=== PATIENT | male | born 1955 | race Caucasian/White ===

== ENCOUNTER → 2017-09-27 06:01 | Outpatient (CLI) | payer OTHER, BC, SELFPAY ==
[2017-09-27 08:36] LABS: AST(SGOT) 22 U/L (15-37); Alanine Aminotransfer ALT/SGPT 42 U/L (16-61); Albumin, Serum 3.7 g/dL (3.2-5.0); Alkaline Phosphatase 157 U/L (45-117); Bilirubin, Direct 0.13 mg/dL (0.00-0.30); Cholesterol 128 mg/dL (200); Globulin 4.2 g/dL (2.2-4.2); High Density Lipoprotein 35 mg/dL; Protein, Total 7.9 g/dL (6.4-8.2); Triglycerides 162 mg/dL; Very Low Density Lipoprotein 32 mg/dL (5-40)
== END ==
PROVIDERS: Family Provider Family Medicine; PCP Family Medicine; Visit Provider Internal Medicine Cardiovascular Disease
DX: E78.5 Hyperlipidemia, unspecified (principal)
CPT/HCPCS: 36415; 80061; 80076

== ENCOUNTER → 2018-06-04 11:19 | Outpatient (CLI) | payer OTHER, BC, SELFPAY ==
--- NOTE | 2018-06-04 11:24 | RAD_ITS ---
STUDY: X-RAY CHEST REASON FOR EXAM: Male, 62 years old. Cough for 4 weeks. TECHNIQUE: Frontal and lateral views of the chest. COMPARISON: November 29, 2015 FINDINGS: There is stable mild hyperexpansion. There is no demonstrated pleural abnormality. Normal size heart. Normal mediastinum and akin. Normal visualized pulmonary arteries. Normal visualized aortic arch and descending thoracic aorta. Normal visualized thoracic spine. Normal visualized ribs, clavicles, and shoulders. There is no demonstrated abnormality of the visualized soft tissue structures of the upper abdomen. RAD/Chest PA and Lateral IMPRESSION: Stable hyperexpansion. No acute pathology. Electronically Signed: Swapnil Perdue MD at 14:41 EDT , Service support ,
== END ==
PROVIDERS: Family Provider Family Medicine; PCP Family Medicine; Referring Provider Family Medicine; Visit Provider Family Medicine
DX: J20.9 Acute bronchitis, unspecified (principal); R05 Cough; F17.200 Nicotine dependence, unspecified, uncomplicated
CPT/HCPCS: 71046

== ENCOUNTER → 2018-06-21 05:57 | Outpatient (CLI) | payer OTHER, BC, SELFPAY ==
[2018-06-21 07:46] LABS: AST(SGOT) 23 U/L (15-37); Alanine Aminotransfer ALT/SGPT 31 U/L (16-61); Albumin, Serum 3.5 g/dL (3.2-5.0); Alkaline Phosphatase 145 U/L (45-117); Bilirubin, Direct 0.23 mg/dL (0.00-0.30); Cholesterol 109 mg/dL (200); Globulin 3.9 g/dL (2.2-4.2); High Density Lipoprotein 34 mg/dL; Protein, Total 7.4 g/dL (6.4-8.2); Triglycerides 102 mg/dL; Very Low Density Lipoprotein 20 mg/dL (5-40)
== END ==
PROVIDERS: Family Provider Family Medicine; PCP Family Medicine; Referring Provider Internal Medicine Cardiovascular Disease; Visit Provider Internal Medicine Cardiovascular Disease
DX: E78.5 Hyperlipidemia, unspecified (principal); Z79.899 Other long term (current) drug therapy
CPT/HCPCS: 36415; 80061; 80076

== ENCOUNTER → 2018-06-25 13:33 | Outpatient (CLI) | payer OTHER, BC, SELFPAY ==
--- NOTE | 2018-06-25 13:34 | ECHOD_ITS ---
Reason For Study: Hx of [place] Procedure This was a 2D Doppler, Color Flow transthoracic echocardiogram. The study was technically difficult. Exam performed in department. Left Ventricle Normal LV size. Mild global left ventricular systolic dysfunction. The estimated ejection fraction is 40 %. Transmitral doppler flow suggestive of impaired relaxation of left ventricle. The global longitudinal strain = -11% (abnormal). Anterio-Basal: Hypokinetic. Basal inferoseptal: Hypokinetic. Basal anteroseptal: Hypokinetic. Mid-Anterior : Hypokinetic. Mid-Lateral : Severely Hypokinetic. Mid-Posterior: Severely Hypokinetic. Mid-Inferior: Severely Hypokinetic. Mid-inferoseptal : Hypokinetic. Mid-anteroseptal : Hypokinetic. Anterior [place] : Hypokinetic. Inferior [place] : Severely Hypokinetic. Lateral [place] : Severely Hypokinetic. Septal [place] : Hypokinetic. Right Ventricle Normal RV size. Normal systolic function. Atria The left atrium is mildly enlarged. Normal right atrium. No doppler evidence for ASD. Mitral Valve There is no mitral annular calcification. Normal mitral valve. Trivial mitral valve insufficiency. Tricuspid Valve Normal tricuspid valve. Trivial tricuspid valve insufficiency. Unable to estimate RV systolic pressure/pulmonary artery pressure due to technically difficult study. Aortic Valve Trisinus/trileaflet aortic valve. Normal aortic valve. Pulmonic Valve The pulmonic valve is not well visualized. Great Vessels Normal sized aortic root. Pericardium/Pleural No pericardial effusion. MMode/2D Measurements & Calculations LVIDd: 5.0 cm IVSd: 0.96 cm Ao root diam: 3.0 cm LVIDs: 3.8 cm LVPWd: 1.2 cm RVDd: 3.2 cm FS: 24.3 % LAV(MOD-sp4): 70.4 ml EDV(MOD-sp4): 139.1 ml EDV(MOD-sp2): 161.3 ml ESV(MOD-sp4): 89.4 ml EF(MOD-sp2): 40.1 % EF(MOD-sp4): 35.7 % SV(MOD-sp4): 49.7 ml SV(MOD-sp2): 64.6 ml LA A4 area: 21.8 cm2 LA dimension(2D): 3.9 cm RA A4 area: 18.3 cm2 Doppler Measurements & Calculations MV E max parviz: 62.7 cm/sec Lat Peak E' Parviz: 6.1 cm/sec Med Peak E' Parviz: 6.1 cm/sec MV A max parviz: 78.6 cm/sec E/E' lat: 10.2 E/E' med: 10.3 MV E/A: 0.80 Ao V2 max: 131.5 cm/sec LV V1 max: 96.2 cm/sec PA V2 max: 72.5 cm/sec Ao max P.9 mmHg LV V1 max P.7 mmHg Interpretation Summary The study was technically difficult. Mild global left ventricular systolic dysfunction. The estimated ejection fraction is 40 %. The global longitudinal strain = -11% (abnormal). The left atrium is mildly enlarged. Trivial mitral valve insufficiency. Trivial tricuspid valve insufficiency. Unable to estimate RV systolic pressure/pulmonary artery pressure due to technically difficult study. Transmitral doppler flow suggestive of impaired relaxation of left ventricle Ordering Physician: Nicholas Sparks Referring Physician: Nicholas Sparks Performed By: Brandy Ochoa RDCS
== END ==
PROVIDERS: Family Provider Family Medicine; PCP Family Medicine; Referring Provider Internal Medicine Cardiovascular Disease; Visit Provider Internal Medicine Cardiovascular Disease
DX: I25.10 Atherosclerotic heart disease of native coronary artery without angina pectoris (principal); I21.4 Non-ST elevation (NSTEMI) myocardial infarction; I25.5 Ischemic cardiomyopathy; I50.22 Chronic systolic (congestive) heart failure; Z95.5 Presence of coronary angioplasty implant and graft
CPT/HCPCS: 93306

== ENCOUNTER → 2018-12-02 16:20 | Outpatient (CLI) | payer OTHER, BC, SELFPAY ==
[2018-06-17 08:47] VITALS: BMI 27.6
[2018-12-02 17:59] LABS: Absolute Lymphocyte Count 3.16 X10^3/ul (0.83-4.51); Absolute Neutrophil Count 7.2 X10^3/uL (2.0-7.7); Basophil# 0.02 X10^3/uL; Basophil% 0.2 % (0-1); Eosinophil# 0.15 X10^3/uL; Eosinophils% 1.3 % (0-5); Lymphocyte # 3.16 X10^3/ul (4.0); Lymphocyte % 27.2 % (19-41); Mean Corpuscular Volume 96.9 fL (80-94); Mean Platelet Vol. 11.2 fl (6.2-12.0); Monocyte% 9.5 % (0-10); Neutrophil # 7.16 X10^3/uL (2.7-7.7); Neutrophil % 61.5 % (47-70); Platelet Count 244 K/mm3 (150-450); RBC Distribution Width CV 13.8 % (11.6-14.6); RBC Distribution Width SD 49.5 fl (35.1-43.9); Red Blood Count 4.85 M/mm3 (4.6-6.2); White Blood Count 11.6 K/mm3 (4.4-11.0)
[2018-12-02 18:00] LABS: POSITIVE COUNT NO; POSITIVE DIFFERENTIAL NO; POSITIVE MORPHOLOGY NO
[2018-12-02 18:03] LABS: Anion Gap 5 (5-15); BUN 11 mg/dL (7-18); BUN/Creat Ratio 13.3 RATIO (10-20); Calcium,Total 8.8 mg/dL (8.5-10.1); Chloride 108 mmol/L (98-107); Creatinine, Serum 0.83 mg/dL (0.70-1.30); EST Glomerular Filtration Rate 100 mL/min (>60); Est Glom Filt Rate - Afr Amer 121 mL/min (>60); Glucose 84 mg/dL (74-106); Potassium 3.9 mmol/L (3.5-5.1); Sodium Level 138 mmol/L (136-145); Thyroid Stim Hormone (TSH) 2.51 uIU/mL (0.358-3.74)
== END ==
PROVIDERS: Family Provider Family Medicine; PCP Family Medicine; Visit Provider Family Medicine
DX: I10 Essential (primary) hypertension (principal); E78.5 Hyperlipidemia, unspecified
CPT/HCPCS: 36415; 80048; 84443; 85025

== ENCOUNTER → 2020-03-01 16:18 | Outpatient (CLI) | payer BC, SELFPAY ==
[2019-09-05 08:38] VITALS: BMI 27.3
--- NOTE | 2020-03-01 16:21 | RAD_ITS ---
STUDY: X-RAY CHEST REASON FOR EXAM: Male, 64 years old. bilateral thoracic and back pain, cough, smoker TECHNIQUE: PA and lateral views of the chest. COMPARISON: 06/04/2018 FINDINGS: The lungs are clear and expanded. There is no demonstrated pleural abnormality. Normal size heart. Normal mediastinum and akin. Normal visualized pulmonary arteries. Normal visualized aortic arch and descending thoracic aorta. Normal visualized thoracic spine. Normal visualized ribs, clavicles, and shoulders. There is no demonstrated abnormality of the visualized soft tissue structures of the upper abdomen. RAD/Chest PA and Lateral IMPRESSION: No acute pulmonary process Electronically Signed: Nehemias Bhakta MD at 9:09 EDT , Service support ,
--- NOTE | 2020-03-01 16:22 | RAD_ITS ---
STUDY: X-RAY - THORACIC SPINE REASON FOR EXAM: Male, 64 years old. Bilateral thoracic and back pain, cough, smoker TECHNIQUE: 3 view(s) of the thoracic spine were obtained. COMPARISON: None. FINDINGS: Normal kyphosis of the thoracic spine. There is no substantial scoliosis. Normal thoracic vertebrae and endplates. Normal disc space heights. Mild anterior spurs noted in the lower thoracic spine. The soft tissue structures are unremarkable. RAD/Thoracic Spine 3 Views IMPRESSION: Mild degenerative changes with spurring, no demonstrated fracture or suspicious osseous lesion Electronically Signed: Nehemias Bhakta MD at 9:09 EDT , Service support ,
== END ==
PROVIDERS: PCP Family Medicine; Referring Provider Family Medicine; Visit Provider Family Medicine
DX: R05 Cough (principal); R10.9 Unspecified abdominal pain; M54.9 Dorsalgia, unspecified
CPT/HCPCS: 71046; 72072

== ENCOUNTER → 2020-03-02 07:07 | Outpatient (CLI) | payer BC, SELFPAY ==
[2019-09-05 08:38] VITALS: BMI 27.3
[2020-03-02 10:04] LABS: Absolute Lymphocyte Count 2.76 X10^3/uL (0.83-4.51); Absolute Neutrophil Count 5.7 X10^3/uL (2.0-7.7); Basophil# 0.03 X10^3/uL; Basophil% 0.3 % (0-1); Eosinophil# 0.19 X10^3/uL; Hematocrit 47.5 % (40-54); Lymphocyte # 2.76 X10^3/ul (4.0); Mean Corp Hgb Conc 33.7 g/dL (32-36); Mean Corpuscular Hgb 33.3 pg (27.0-32.0); Mean Corpuscular Volume 98.8 fL (80-94); Mean Platelet Vol. 10.9 fl (6.2-12.0); Monocyte# 0.85 X10^3/uL; Monocyte% 8.9 % (0-10); NRBC Flagged by Analyzer 0 % (0-5); Neutrophil # 5.67 X10^3/uL (2.7-7.7); Neutrophil % 59.5 % (47-70); Platelet Count 235 K/mm3 (150-450); RBC Distribution Width CV 14.2 % (11.6-14.6); RBC Distribution Width SD 51.7 fl (35.1-43.9); Red Blood Count 4.81 M/mm3 (4.6-6.2); White Blood Count 9.5 K/mm3 (4.4-11.0)
[2020-03-02 10:19] LABS: ALB/GLOB Ratio 0.9 RATIO (0.9-2.4); AST(SGOT) 25 U/L (15-37); Alanine Aminotransfer ALT/SGPT 45 U/L (16-61); Albumin, Serum 3.7 g/dL (3.2-5.0); Alkaline Phosphatase 141 U/L (45-117); Anion Gap 4 (5-15); BUN 15 mg/dL (7-18); BUN/Creat Ratio 18.7 RATIO (10-20); Calcium,Total 8.8 mg/dL (8.5-10.1); Chloride 109 mmol/L (98-107); Cholesterol 123 mg/dL (200); EST Glomerular Filtration Rate 104 mL/min (>60); Est Glom Filt Rate - Afr Amer 126 mL/min (>60); Globulin 4.2 g/dL (2.2-4.2); Glucose 106 mg/dL (74-106); High Density Lipoprotein 31 mg/dL; PSA,Total - Annual Screen 1.39 ng/mL (0.00-4.00); Potassium 3.8 mmol/L (3.5-5.1); Protein, Total 7.9 g/dL (6.4-8.2); Sodium Level 140 mmol/L (136-145); Triglycerides 139 mg/dL; Very Low Density Lipoprotein 28 mg/dL (5-40)
== END ==
PROVIDERS: PCP Family Medicine; Referring Provider Family Medicine; Visit Provider Family Medicine
DX: I25.10 Atherosclerotic heart disease of native coronary artery without angina pectoris (principal); I10 Essential (primary) hypertension; E78.5 Hyperlipidemia, unspecified; Z12.5 Encounter for screening for malignant neoplasm of prostate
CPT/HCPCS: 36415; 80053; 80061; 84153; 85025; G0103

== ENCOUNTER → 2020-03-12 15:34 | Outpatient (CLI) | payer BC, SELFPAY ==
[2019-09-05 08:38] VITALS: BMI 27.3
--- NOTE | 2020-03-12 15:38 | CT_ITS ---
STUDY: CT ABDOMEN AND PELVIS WITH AND WITHOUT CONTRAST REASON FOR EXAM: Male, 64 years old. B/L FLANK PAIN X MONTHS. RADIATION DOSAGE (If Supplied By Facility): CTDIvol = ( 10.373 ) mGy, DLP = ( 1730.73 ) mGycm TECHNIQUE: Transaxial images were obtained from the dome of the diaphragm to the symphysis pubis without oral contrast. IV 100ML ISOVUE 300 was administered. Sagittal and coronal images were reconstructed. Individualized dose optimization techniques were used for this CT. COMPARISON: None. FINDINGS: There is an irregularly marginated nodule of the posterior right lower lobe measuring 1.1 cm. Entirety of this nodule is not included in the [id number] of this study. The visualized heart appears within normal limits in size. Coronary arterial calcifications and/or stents are noted. Normal liver. Normal gallbladder and extrahepatic biliary system. Normal spleen. Normal pancreas. Normal bilateral adrenal glands. Normal right kidney. Normal left kidney. Normal visualized stomach. Normal small intestine. There is colonic diverticulosis predominantly involving the sigmoid. There is no evidence of associated diverticulitis. The appendix is visualized and appears normal. There are calcified plaques of the abdominal aorta. There is borderline aneurysmal dilatation of the infrarenal abdominal aorta measuring up to 3.0 cm in diameter. There is circumferential mural thrombus in the region of aneurysm. The aneurysm extends to but not into the iliac bifurcation. Normal inferior vena cava. Normal retroperitoneum. Normal urinary bladder. The prostate is mildly enlarged. The seminal vesicles and seminal vesicle angles are preserved. There is a small umbilical hernia containing fat. There is mild endplate spondylosis of the visualized thoracolumbar spine. CT/CT Abd/Pelvis W/WO Contrast IMPRESSION: 1. Irregularly marginated 1.1 cm nodule of the right lower lobe. Appropriate follow-up using FLEISCHNER Society criteria is recommended. 2. Colonic diverticulosis predominantly involving the sigmoid. There is no evidence of associated diverticulitis. 3. Borderline aneurysmal dilatation of the infrarenal abdominal aorta measuring up to 3.0 cm in diameter. There is circumferential mural thrombus in the region of aneurysm. The aneurysm extends to but not into the iliac bifurcation. 4. Mildly enlarged prostate. 5. Mild endplate spondylosis of the visualized thoracolumbar spine. 6. The kidneys appear within normal limits. There is no evidence of nephro or ureterolithiasis, hydronephrosis, or hydroureter. Electronically Signed: Nabeel Pablo MD at 17:35 EDT , Service support ,
== END ==
PROVIDERS: PCP Family Medicine; Referring Provider Family Medicine; Visit Provider Family Medicine
DX: R10.9 Unspecified abdominal pain (principal); Z80.51 Family history of malignant neoplasm of kidney
CPT/HCPCS: 74178; Q9967

== ENCOUNTER → 2020-04-06 15:57 | Outpatient (CLI) | payer BC, SELFPAY ==
[2019-09-05 08:38] VITALS: BMI 27.3
--- NOTE | 2020-04-06 16:00 | PET_ITS ---
EXAMINATION: FDG PET-CT INDICATIONS: A 64-year-old male with a history of pulmonary nodularity presenting for restaging examination. COMPARISON EXAMINATION: CT of the abdomen and pelvis report dated 03/12/20. INDEX LESION SIZE SUV INTERPRETATION Right lower posterior lung, right lower lobe 17.9 mm, frame 169 1.6 Quantitative criteria for viable neoplasm are not fulfilled, sequential radiologic investigation recommended. NON-INDEX LESION SIZE SUV INTERPRETATION Mediastinum and bilateral thoracic perihilum 2.4 max Quantitative criteria for viable neoplasm are not fulfilled. TECHNIQUE: Following the intravenous administration of 14.35 mCi of F-18 deoxyglucose via the left antecubital fossa, multiplanar image acquisitions of the head, neck, chest, abdomen and pelvis to level of mid-thigh, lower extremities obtained at one hour post radiopharmaceutical administration contemporaneously interpreted with the current CT of the head, neck, chest, abdomen and pelvis to level of mid-thigh, lower extremities dated 04/06/20 via coregistration and previous CT of the abdomen and pelvis report dated 03/12/20 reveal: SERUM GLUCOSE LEVEL: 83 mg/dl. HEIGHT: 66 inches. WEIGHT: 165 lbs. FINDINGS: 1. Mild increased FDG distribution is defined in the right lower posterior lung, right lower lobe. The calculated standard uptake value is noted to be 1.6. The maximum axial diameter of the corresponding metabolic, morphologic abnormality on review of CT of the chest dated 04/06/20 is 17.9 mm (transverse). 2. Multifocal increased FDG uptake is defined in the carinal level mediastinum and bilateral thoracic perihilum rendering a calculated maximum standard uptake value of 2.4. Quantitative criteria for centrally located thoracic-viable neoplasm are not fulfilled. 3. Normal physiologic distribution of the radiopharmaceutical is apparent in the hepatic (2.7) and splenic parenchyma, both renal units, bladder and visualized intestinal tract. The visualized portion of the cerebral cortex demonstrate symmetric and preserved glucose metabolism. Diffuse intestinal tract activity is noted throughout all four quadrants of the abdominal-pelvic retroperitoneum and mesentery consistent with normal physiologic distribution of the radiopharmaceutical. Pertinent CT findings are as follows. CHEST: Bilateral axillary soft tissue densities with fatty hilus are ametabolic. Scattered mediastinal soft tissue reveals no evidence of increased tracer uptake. There is atherosclerotic calcification defined in the thoracic aorta without evidence of dilatation-aneurysm formation. Coronary arterial calcification is observed. There are no additional parenchymal densities-nodules defined in the right and left hemithorax with discernable increased FDG uptake. Mild paraseptal emphysematous changes are defined in the bilateral upper medial lung zones. ABDOMEN AND PELVIS: Atherosclerotic calcification is defined in the abdominal aorta without evidence of dilatation, aneurysm formation. The maximum axial diameter of the abdominal aorta is 28.2 mm. Pelvic arterial calcification is observed. Colonic diverticulosis is noted without evidence of diverticulitis. Right-left inguinal soft tissue densities with fatty hilus are ametabolic. SKELETAL: Degenerative changes defined in the cervical, thoracic and lumbar spine demonstrate no evidence of glucose hypermetabolism. PET/PET/CT Tumor Base -Thigh Init IMPRESSION: 1. NEGATIVE EXAMINATION. There is no definitive quantitative scintigraphic evidence of viable neoplasm. 2. Mild increased glucose concentration observed in the right lower posterior lung, right lower lobe does not fulfill quantitative criteria for viable neoplasm. (Conklin et al, Annals of Internal Medicine, 138:724, 2003). 3. Metabolic and/or anatomic stability may be ensured in the right hemithorax pulmonary parenchymal abnormality with repeat FDG PET study and/or CT of the thorax in three-six months. (Xiu, Journal of Nuclear Medicine 45:88, P2004 Ginny, Seminars in Thoracic and Cardiovascular Surgery 14:292, 2002) 4. Facilitated uptake noted in the mediastinum and bilateral thoracic perihilum does not fulfill quantitative criteria for malignant transformation. (Atilio et al, Journal of Clinical Oncology 16:2142, 1998 Tigre et al, [place] in Thorac Surg 82:417, 2006) Electronic Signature Triston Melo D.O. Accurate Quantification of SUVs for this report are calculated using the exclusive [employer] Technology. Exclusive [place]. Patent [employer]? Technology ([place].S. Patent No. [id number] [id number]). Electronically Signed: Triston Melo DO at 18:25 EDT Tel , Service support ,
== END ==
PROVIDERS: PCP Family Medicine; Referring Provider Family Medicine; Visit Provider Family Medicine
DX: R91.1 Solitary pulmonary nodule (principal); Z72.0 Tobacco use
CPT/HCPCS: 78815; A9552

== ENCOUNTER → 2020-09-06 08:33 | Outpatient (CLI) | payer BC, SELFPAY ==
[2020-08-23 09:05] VITALS: BMI 27.4
[2020-09-06 10:24] LABS: AST(SGOT) 27 U/L (15-37); Alanine Aminotransfer ALT/SGPT 42 U/L (16-61); Albumin, Serum 3.7 g/dL (3.2-5.0); Alkaline Phosphatase 152 U/L (45-117); Bilirubin, Direct 0.15 mg/dL (0.00-0.30); Cholesterol 142 mg/dL (200); Globulin 4.5 g/dL (2.2-4.2); High Density Lipoprotein 38 mg/dL; Protein, Total 8.2 g/dL (6.4-8.2); Triglycerides 166 mg/dL; Very Low Density Lipoprotein 33 mg/dL (5-40)
== END ==
PROVIDERS: PCP Family Medicine; Referring Provider Internal Medicine Cardiovascular Disease; Visit Provider Internal Medicine Cardiovascular Disease
DX: E78.00 Pure hypercholesterolemia, unspecified (principal)
CPT/HCPCS: 36415; 80061; 80076

== ENCOUNTER 2020-10-19 17:38 | Outpatient (RCR) | payer BC, SELFPAY ==
[2020-08-23 09:05] VITALS: BMI 27.4
[2020-10-19] MEDS: COVID-19 VACC, MRNA(PFIZER)/PF 30 MCG/0.3 ML SYRINGE IM (08:23)
[2020-11-09] MEDS: COVID-19 VACC, MRNA(PFIZER)/PF 30 MCG/0.3 ML SYRINGE IM (08:06)
== END 2021-01-18 23:59 ==
LOC: IMMUN 17:38
PROVIDERS: PCP Family Medicine; Visit Provider Family Medicine
DX: Z23 Encounter for immunization (principal)
CPT/HCPCS: 0001A; 0002A; 91300

== ENCOUNTER → 2020-12-01 07:07 | Outpatient (CLI) | payer BC, SELFPAY ==
[2020-11-25 07:15] VITALS: BMI 28.7
--- NOTE | 2020-12-01 07:18 | CT_ITS ---
STUDY: CT CHEST WITHOUT CONTRAST REASON FOR EXAM: Male, 64 years old. RLL Lung Nodule, +tobacco dependency RADIATION DOSAGE (If Supplied By Facility): CTDIvol = ( 13.17 ) mGy, DLP = ( 520.12 ) mGycm TECHNIQUE: Transaxial imaging was performed without the administration of intravenous contrast material. Multiplanar coronal and sagittal images were reformatted. Individualized dose optimization techniques were used for this CT. COMPARISON: Comparison is made with prior chest radiograph dated 03/01/[address] scan of the chest dated 11/29/2015 and prior PET scan dated 04/06/2020. FINDINGS: Small benign appearing bilateral axillary lymph nodes. There is a 1.5 cm by 1.5 cm slightly spiculated nodule in the posterior medial segment of the right lower lobe. This is pleural-based. There is no demonstrated pleural abnormality. There are calcifications of the coronary arteries. There are multiple small lymph nodes within the mediastinum, which are normal in size and morphology most compatible with reactive lymph hyperplasia. Normal hilar regions. Normal unenhanced pulmonary arteries. There is atherosclerotic calcification of the aortic arch . There are degenerative changes of the thoracic spine. There is no demonstrated abnormality of the visualized upper abdomen. CT/Chest without Contrast IMPRESSION: 1.5 cm x 1.5 sinusitis. Nodule in the posteromedial segment of the right lower lobe. This is pleural-based. Electronically Signed: Jermain Ho MD at 10:19 EDT , Service support ,
== END ==
PROVIDERS: PCP Family Medicine; Referring Provider Internal Medicine Critical Care Medicine; Visit Provider Internal Medicine Critical Care Medicine
DX: R91.1 Solitary pulmonary nodule (principal)
CPT/HCPCS: 71250

== ENCOUNTER → 2021-06-03 07:43 | Outpatient (CLI) | payer BC, SELFPAY ==
--- NOTE | 2021-06-03 07:48 | CT_ITS ---
STUDY: CT CHEST WITHOUT CONTRAST REASON FOR EXAM: Male, 65 years old. Lung Nodule RADIATION DOSAGE (If Supplied By Facility): CTDIvol = ( 11.01 ) mGy, DLP = ( 426.58 ) mGycm TECHNIQUE: Transaxial imaging was performed without the administration of intravenous contrast material. Multiplanar coronal and sagittal images were reformatted. Individualized dose optimization techniques were used for this CT. COMPARISON: Comparison is made with prior study dated 12/01/2020. FINDINGS: The previously seen nodular density in the posterior mediastinum at the right lower lobe has decreased in size. It presently measures 1.2 cm x 0.9 cm. It has become heterogeneous with a focal lucency within it. The margins remain spiculated. No new nodule is seen. There is no demonstrated pleural abnormality. There are calcifications of the coronary arteries. There are multiple small lymph nodes within the mediastinum, which are normal in size and morphology most compatible with reactive lymph hyperplasia. Normal hilar regions. Normal unenhanced pulmonary arteries. Normal aorta arch and descending thoracic aorta. There are multi-level degenerative changes of the thoracic spine. There is no demonstrated abnormality of the visualized upper abdomen. CT/Chest without Contrast IMPRESSION: Interval decrease in size of the nodule in the right lower lobe as described. It presently measures 1.2 sinus findings are 0.9 cm. It remains spiculated although it as a lucency within it at this time. 6 month follow-up examination is recommended. Electronically Signed: Jermain Ho MD at 11:18 EDT , Service support ,
== END ==
PROVIDERS: PCP Family Medicine; Visit Provider Internal Medicine Critical Care Medicine
DX: R91.1 Solitary pulmonary nodule (principal)
CPT/HCPCS: 71250

== ENCOUNTER → 2021-08-01 12:56 | Outpatient (CLI) | payer BC, SELFPAY ==
--- NOTE | 2021-08-01 13:22 | EKG12_ITS ---
Test Reason : PRE-OP Blood Pressure : / mmHG Vent. Rate : 052 BPM Atrial Rate : 052 BPM P-R Int : 148 ms QRS Dur : 090 ms QT Int : 422 ms P-R-T Axes : 070 057 106 degrees QTc Int : 392 ms Sinus bradycardia Nonspecific T wave abnormality Abnormal ECG Confirmed by CHRISTIANO TRACEY, PYIUSH ([id number]), image editor RAYMON OWENS ([id number]) on 08/02/2021 8:10:48 AM Referred By: BUSTER Confirmed By:PIYUSH ALVARADO MD
[2021-08-01 13:46] LABS: Hematocrit 46.8 % (40-54); Hemoglobin 16.1 g/dL (13.0-16.5); Mean Corp Hgb Conc 34.4 g/dL (32-36); Mean Corpuscular Volume 95.9 fL (80-94); Mean Platelet Vol. 9.9 fl (6.2-12.0); Platelet Count 279 K/mm3 (150-450); RBC Distribution Width CV 13.5 % (11.6-14.6); RBC Distribution Width SD 48.2 fl (35.1-43.9); Red Blood Count 4.88 M/mm3 (4.6-6.2); White Blood Count 7.8 K/mm3 (4.4-11.0)
[2021-08-01 13:59] LABS: Hemoglobin A1c 6.1 % (3.8-5.6)
[2021-08-01 14:07] LABS: Anion Gap 6 (5-15); BUN 14 mg/dL (7-18); BUN/Creat Ratio 15.2 RATIO (10-20); Calcium,Total 9.5 mg/dL (8.5-10.1); Chloride 105 mmol/L (98-107); Creatinine, Serum 0.92 mg/dL (0.70-1.30); EST Glomerular Filtration Rate 88 mL/min (>60); Est Glom Filt Rate - Afr Amer 107 mL/min (>60); Glucose 119 mg/dL (74-106); Sodium Level 139 mmol/L (136-145)
== END ==
PROVIDERS: PCP Family Medicine; Visit Provider Physician Assistant
DX: Z01.810 Encounter for preprocedural cardiovascular examination (principal); Z01.818 Encounter for other preprocedural examination
CPT/HCPCS: 36415; 80048; 83036; 85027; 93005

== ENCOUNTER 2021-08-23 06:07 | Outpatient (CLI) | payer BC, SELFPAY ==
--- NOTE | 2021-08-23 06:20 | ECHOCS_ITS ---
Reason For Study: CAD/ASHD Procedure This was a 2D Doppler, Color Flow transthoracic echocardiogram. The study was technically difficult. Contrast injection was performed. Exam performed in department. Left Ventricle Normal LV size. Mild segmental systolic dysfunction (see wall motion). The estimated ejection fraction is 45 %. Diastolic function is indeterminate. Mid-Lateral : Akinetic. Lateral [place] : Hypokinetic. Right Ventricle Normal RV size. Normal systolic function. Atria Normal left atrium. Normal right atrium. No doppler evidence for ASD. Mitral Valve There is no mitral annular calcification. Normal mitral valve. Trivial mitral valve insufficiency. Tricuspid Valve Normal tricuspid valve. Trivial tricuspid valve insufficiency. Unable to estimate RV systolic pressure/pulmonary artery pressure due to technically difficult study. Aortic Valve Trisinus/trileaflet aortic valve. Mild focal aortic valve calcification. Pulmonic Valve The pulmonic valve is not well visualized. Great Vessels The aortic root is not well visualized. Pericardium/Pleural No pericardial effusion. Medication 22 gauge I.V. with prn adaptor inserted into right arm. Diluted definity 5ml given slow IV push to enhance endocardial definition. MMode/2D Measurements & Calculations LVIDd: 5.1 cm IVSd: 0.91 cm LA dimension: 3.6 cm LVIDs: 3.9 cm LVPWd: 0.87 cm RVDd: 4.0 cm FS: 24.5 % LAV(MOD-bp): 43.5 ml LA A4 area: 16.4 cm2 RA A4 area: 18.7 cm2 LAV(MOD-bp) Indexed: 22.8 ml/m2 LAV(MOD-sp2): 45.8 ml LAV(MOD-sp4): 41.4 ml Time Measurements MV dec time: 0.26 sec Doppler Measurements & Calculations MV E max parviz: 61.1 cm/sec Lat Peak E' Parviz: 5.6 cm/sec Med Peak E' Parviz: 5.2 cm/sec MV A max parviz: 82.5 cm/sec E/E' lat: 10.9 E/E' med: 11.7 MV E/A: 0.74 MV V2 max: 91.4 cm/sec MV P1/2t max parviz: 74.9 cm/sec Ao V2 max: 123.8 cm/sec MV max P.3 mmHg MV P1/2t: 106.5 msec Ao max P.1 mmHg MV V2 mean: 47.4 cm/sec MV dec slope: 205.9 cm/sec2 MV mean P.1 mmHg MV V2 VTI: 29.0 cm MVA(P1/2t): 2.1 cm2 LV V1 max: 98.4 cm/sec PA V2 max: 89.3 cm/sec LV V1 max P.9 mmHg ECHO/Echo Complete W/ Contrast Interpretation Summary The study was technically difficult. Contrast injection was performed. Mild segmental systolic dysfunction (see wall motion). The estimated ejection fraction is 45 %. Trivial mitral valve insufficiency. Trivial tricuspid valve insufficiency. Mild focal aortic valve calcification. Unable to estimate RV systolic pressure/pulmonary artery pressure due to techni franklin difficult study. Diastolic function is indeterminate. Ordering Physician: Nicholas Sparks Referring Physician: George Cutler Performed By: Ovidio Crane RCS
--- NOTE | 2021-08-23 08:56 | STRESSREP_ITS ---
Stress Test Report Date: 08-23-2021 Procedure: Exercise tolerance test/imaging study Indications: CAD; PCI; preoperative cardiovascular evaluation Consent: Per the patient Procedure: The patient exercised on a Britton protocol for 5 minutes and 8 seconds completing Stage I and 2 minutes and 8 seconds of Stage II achieving a peak heart rate of 142 bpm (90% predicted maximal heart rate) with a peak blood pressure 182/90 mmHg and a peak MET capacity of 7 METs. The baseline ECG demonstrated sinus bradycardia. The peak exercise ECG demonstrated no obvious ECG changes. There was a rare PAC/PVC and an isolated ventricular quadruplet during exercise and a rare PAC/PVC during recovery. The functional capacity was considered average. There was no complaint of chest discomfort during exercise or recovery. The examination was discontinued secondary to dyspnea. Impression: 1. Technically adequate (percent predicted maximal heart rate greater than 85%) exercise tolerance test 2. Peak exercise ECG with no obvious ECG changes 3. There was a rare PAC/PVC and an isolated ventricular quadruplet during exercise and a rare PAC/PVC during recovery 4. Nuclear images pending Myocardial perfusion imaging study: Technique: The patient was injected with 11.9 mCi of technetium 99m Cardiolite and subsequently rest SPECT Cardiolite nuclear imaging was obtained in the horizontal long, vertical long, and short axis views. The patient exercised on a Britton protocol for 5 minutes and 8 seconds completing Stage I and 2 minutes and 8 seconds of Stage II achieving a peak heart rate of 142 bpm (90% predicted maximal heart rate) with a peak blood pressure 182/90 mmHg and a peak MET capacity of 7 METs. The patient was injected with 35.6 mCi of technetium 99m Cardiolite and subsequently stress SPECT Cardiolite nuclear imaging was obtained in the horizontal long, vertical long, and short axis views. A gated Cardiolite study at peak stress was obtained. Interpretation: Rest and stress SPECT Cardiolite nuclear imaging status post realignment, normalization, and attenuation correction, demonstrates the appearance of absence of myocardial perfusion/tracer uptake in the mid to distal lateral segments. There is diminished end-systolic thickening and brightening in the aforementioned areas. The gated Cardiolite study demonstrates myocardial thicke lorenzo and inward wall motion. The reported LVEF is 48%. Impression: 1. Rest and stress SPECT Cardiolite nuclear imaging demonstrate myocardial perfusion changes appearing compatible with an area of previous myocardial injury/infarction involving portions of the mid to distal lateral segments with no myocardial perfusion changes considered diagnostic for associated stress- induced myocardial ischemia. 2. The gated Cardiolite study reports an LVEF of 48%. This note was generated with [employer] software. It may contain incorrect words, spelling, and punctuation that were not noted in checking the note before signing.
== END 2021-08-23 23:59 | disposition short-term general hospital (02) ==
LOC: CVS 06:18
PROVIDERS: PCP Family Medicine; Referring Provider Internal Medicine Cardiovascular Disease; Visit Provider Internal Medicine Cardiovascular Disease
DX: I25.10 Atherosclerotic heart disease of native coronary artery without angina pectoris (principal); I25.5 Ischemic cardiomyopathy; I10 Essential (primary) hypertension; E78.5 Hyperlipidemia, unspecified; Z95.5 Presence of coronary angioplasty implant and graft
CPT/HCPCS: 78452; 93017; 93306; A9500; Q9957; A4216; C8929

== ENCOUNTER 2021-11-10 07:10 | Outpatient (CLI) | payer BC, SELFPAY ==
--- NOTE | 2021-11-10 07:11 | CT_ITS ---
EXAM: CT CHEST WITHOUT INTRAVENOUS CONTRAST : 1955 CLINICAL INDICATION: follow 1.2 cm X 0.9 cm nodule TECHNIQUE: Helically acquired images were obtained of the chest without intravenous contrast. This CT exam was performed using one or more of the following dose reduction techniques: automated exposure control, adjustment of the mA and/or kV according to patient size, and/or use of iterative reconstruction technique. This report was created using [employer] report generation technology. COMPARISON: June 03, 2021 and December 01, 2020 FINDINGS: LUNGS AND PLEURAL SPACES: 14 mm spiculated nodule noted within the right lower lobe appears minimally larger when compared to the last exam. Mild diffuse pulmonary emphysema again noted. No pleural effusion or thickening. No pneumothorax. HEART: Coronary artery calcification and stents again seen. Heart size is normal. No pericardial effusion. MEDIASTINUM: Stable mildly enlarged mediastinal and hilar lymph nodes. Esophagus is unremarkable. No hiatal hernia. THYROID: Unremarkable. No thyroid lesions. BONES/JOINTS: Unremarkable. No suspicious lytic or blastic abnormality. VASCULATURE: Unremarkable. Thoracic aorta is non-dilated. CT/Chest without Contrast IMPRESSION: 1. 14 mm spiculated right lower lobe and nodule consistent with a primary lung neoplasm. 2. Stable mildly enlarged mediastinal and hilar lymph nodes. 3. Pulmonary emphysema. Individualized dose optimization techniques were used for this CT. at 1043 Reported and signed by: Royal Mclain MD Electronically Signed: Royal Mclain MD at 10:42 EDT ,
== END 2021-11-10 23:59 | disposition home or self-care (01) ==
PROVIDERS: PCP Family Medicine; Referring Provider Nurse Practitioner Acute Care; Visit Provider Nurse Practitioner Acute Care
DX: R91.1 Solitary pulmonary nodule (principal)
CPT/HCPCS: 71250

== ENCOUNTER 2021-11-21 09:03 | Outpatient (CLI) | payer BC, SELFPAY ==
[2021-11-21 09:27] LABS: Platelet Count 260 K/mm3 (150-450)
[2021-11-21 09:36] LABS: Prothrombin Time (Protime)PT. 12.8 SECONDS (11.7-14.9)
== END 2021-11-21 23:59 | disposition home or self-care (01) ==
LOC: LAB 09:04
PROVIDERS: PCP Family Medicine; Visit Provider Nurse Practitioner Acute Care
DX: R06.00 Dyspnea, unspecified (principal)
CPT/HCPCS: 36415; 85049; 85610; 85730

== ENCOUNTER 2021-11-25 08:11 | Outpatient (CLI) | payer BC, SELFPAY ==
[2021-11-25] VITALS (11 sets, daily range): BP systolic 94–140; BP diastolic 56–93; PULSE 47–85; RESP 12–20; TEMP 36.6; O2SAT 92–96; BMI 28.8
--- NOTE | 2021-11-25 | IMM_PTH ---
PATIENT: KATARINA MELGZOA LOC: CT U#:[id number] AGE/SX: 65/M ROOM: RE11/25/[address]: DAVID Tillman : 1955 BED: DIS: 11/25/2021 SPEC #: [id number] RECD: 11/25/21 11:10 STATUS: ZOË REQ #: [id number] MIN: 11/25/21 00:[address]: Ana Ledezma NP DEPT: IMMUNOHISTOCHEMISTRY RECD BY: Sangeeta Babcock ENTERED: 11/25/21 11:12 SP TYPE: IMMUNO OTHR DR: Dr. George Cutler MD Tissues: Right lung, NOS Procedures: RCC (add) NAPSIN A (add) CK20 (add) CK5-6 (add) CK7 (add) CK8 (add) DAMIAN-2 (add) HEP PAR (add) TTF1 (add) Pankeratin (initial) P40 (add) CDX2 (add) CD44 (add) PSAP (add) PHYSICIAN & [address] [address] SPECIMEN INFORMATION: Tissue Source: Right lung Clinical Info: Right lung mass Specimen Number: [id number] CPT code: 37326, 30139 x13 METHODOLOGY: Deparaffinized sections of prefer/formalin-fixed tissue or PAP/DQ stained slides are incubated with monoclonal/polyclonal antibodies/oligonucleotide probes. Localization is made via biotin free immunoperoxidase method. Appropriate controls are performed and reacted as expected. Results on target cell population are indicated in the following table: RESULTS: ANTIBODY / CLONE RESULT AE1-3 (AE1/AE3/PCK26) positive CK7 (OV-TL12/30) positive CK8 (06bntrV55) positive CK20 (KS20.8) positive TTF-1 (8G7G3/1) positive, rare cells Napsin A (Rabbit Polyclonal) positive, rare cells HepPar (OCh1E5) negative RCC (PN-15) negative PSAP (PASE/4LJ) negative CK5-6 (D5 & 1684) positive, focal P40 (BC28) positive, rare cells anti-CD44 (SP37) positive CDX2 (TTF1162T) negative DAMIAN-2 (SP21) positive These tests were developed and their performance characteristics determined by [facility]. They may not have been cleared or approved by the U.S. Food and Drug Administration. The FDA has determined that such clearance or approval is not necessary. The above immunohistochemical/dualISH markers are ordered and reviewed by the Pathologist. INTERPRETATION: Right lung mass, CT-guided biopsy: Non-small cell carcinoma, favor adenocarcinoma with focal squamoid differentiation. SJ:jesu 11/29/2021 Case has been reviewed in consultation with Dr. Ortega who concurs with the above diagnosis. IDC:AM
--- NOTE | 2021-11-25 08:13 | CT_ITS ---
PROCEDURE: CT GUIDED CORE NEEDLE BIOPSY OF A right lower lobe LUNG LESION INDICATION: Male, 65 years old. Right lower lobe 1.4 cm mass PHYSICIAN: Dr. KILLIAN Giraldo CONSENT: Written informed consent was obtained having explained the risks, benefits and alternatives in detail with the patient who accepted the risks and agreed to proceed. Laboratory review and clinical assessment was performed. CONSCIOUS SEDATION PROTOCOL: The Drugs used were: 2 mg Versed, IV., and 50 mcg Fentanyl, IV. The sedation time was: 27 minutes. Conscious sedation was started at 9:03 AM and terminated at 9:30 AM. The conscious sedation protocol was independently monitored. RADIATION DOSAGE (If Supplied By Facility): CTDIvol = ( 18.99 ) mGy, DLP = ( 512.03 ) mGycm Individualized dose optimization techniques were used for this CT. TECHNIQUE: The patient was placed in the prone position. A noncontrast CT was performed to localize the lesion in the right lower lobe . The skin surface was prepped and draped in a sterile fashion. 1% lidocaine was used for local anesthesia. Using CT guidance, a 20-gauge coaxial biopsy device was advanced to the periphery of the lesion. A total of 4 core specimens were obtained. The specimens were placed in a formalin solution. A post procedure CT demonstrated no adverse sequelae or pneumothorax. An AngioDynamics core plug was utilized within the needle tract. The patient tolerated the procedure well without adverse event. A negative biopsy does not exclude malignancy. Further imaging or clinical followup based on patient condition and degree of clinical suspicion for malignancy. Suggest rebiopsy, if biopsy results do not match with clinical scenario. CT/Biopsy/Inj or Needle Placement IMPRESSION: 1. CT directed core needle biopsy of the right lower lobe pulmonary nodule using CT image guidance with image documentation as described. Pathology results are pending. 2. Conscious Sedation protocol utilized with independent monitoring. Electronically Signed: Jermain Ho MD at 10:31 EDT ,
--- NOTE | 2021-11-25 09:00 | ASPIGT_PTH ---
PATIENT: KATARINA MELGOZA LOC: CT U#:[id number] AGE/SX: 65/M ROOM: RE11/25/[address]: DAVID Tillman : 1955 BED: DIS: 11/25/2021 SPEC #: [id number] RECD: 11/25/21 09:30 STATUS: ZOË ANTOINE #: [id number] MIN: 11/25/21 09:[address]: Ana Ledezma NP DEPT: SURGICAL PATHOLOGY RECD BY: Marnie Miranda ENTERED: 11/25/21 09:42 SP TYPE: ASP RAD OTHR DR: Dr. George Cutler MD Tissues: Lung, NOS Procedures: FNA Specimen Adequacy Special Stain Group II Surgery Specimen Level IV Imprint (control) HEADER OPERATION: CT-guided right lung biopsy PRE-OP DIAGNOSIS: Right lung mass TISSUE SUBMITTED: Right lung mass 20-guage core MICROSCOPIC DIAGNOSIS Right lung mass, CT-guided core biopsy: Non-small cell carcinoma, favor adenocarcinoma with focal mucinous and squamoid differentiation. See comment. DEB:jesu 11/28/2021 COMMENT The specimen is evaluated at the time of biopsy by Dr. Davies. Immediate Evaluation = Malignant cells present derived from non-small cell carcinoma. Immunohistochemistry ([id number]) supports the above diagnosis. Mucin stain with matched control is also used in the evaluation of the specimen and a few of the tumor cells are positive for mucin. Molecular studies on the tumor can be performed if clinically indicated. Please notify the laboratory if they are needed. Case has been reviewed in consultation with Dr. Ortega who concurs with the above diagnosis. IDC:AM MICROSCOPIC DESCRIPTION Slides are reviewed. GROSS DESCRIPTION Received in fixative is one container labeled with the patient's name and designated right lung mass, CT-guided core biopsy. The specimen consists of multiple irregular fragments of gutierrez soft tissue that in aggregate measure 2 x 0.1 x <0.1 cm. The specimen is totally submitted in one cassette. Two touch imprints are prepared at the time of core biopsy. / SJ:jesu 11/25/2021 TC:0 CPT: 63308, 99902, 26414
[2021-11-25] MEDS: Midazolam 2 MG/2 ML Syringe IV (09:03)
[2021-11-25] MEDS: fentaNYL 100 MCG/2 ML Ampul IV (09:04)
[2021-11-25] MEDS: Lidocaine 2% (20 ml mdv) 20 ML Vial INFILT (09:05)
--- NOTE | 2021-11-25 09:37 | RAD_ITS ---
STUDY: X-RAY CHEST REASON FOR EXAM: Male, 65 years old. Post lung biopsy -- Immediately post lung biopsy TECHNIQUE: AP inspiration and expiration views. COMPARISON: Comparison is made with prior study dated 03/01/2020. FINDINGS: EKG electrodes are seen. There is no evidence of pneumothorax on the immediate post right lung biopsy radiographs. RAD/Chest Insp/Exp 2 View IMPRESSION: No evidence of pneumothorax on the immediate post right lung biopsy radiographs. Electronically Signed: Jermain Ho MD at 10:27 EDT ,
--- NOTE | 2021-11-25 11:17 | RAD_ITS ---
STUDY: X-RAY CHEST REASON FOR EXAM: Male, 65 years old. CHEST PAIN post lung biopsy -- 2 hours post lung biopsy TECHNIQUE: XR Chest 2 Views COMPARISON: Study done earlier today. FINDINGS: There is no demonstrated pleural abnormality. There is no pneumothorax. Normal size heart. Normal mediastinum and akin. Normal visualized pulmonary arteries. There is atherosclerotic calcification of the aortic arch with tortuosity. There are diffuse degenerative changes of the visualized thoracic spine. There is degenerative osteoarthritis of the bilateral shoulders. There is no demonstrated abnormality of the visualized soft tissue structures of the upper abdomen. RAD/Chest Insp/Exp 2 View IMPRESSION: There are no acute findings. Electronically Signed: Pete Catalan MD at 17:01 EDT ,
== END 2021-11-25 23:59 | disposition home or self-care (01) ==
LOC: CT 08:12
PROVIDERS: PCP Family Medicine; Referring Provider Nurse Practitioner Acute Care; Visit Provider Nurse Practitioner Acute Care
DX: C34.90 Malignant neoplasm of unspecified part of unspecified bronchus or lung (principal)
CPT/HCPCS: 32408; 71046; 77012; 88172; 88305; 88313; 88341; 88342; 99156; J7040; A4216; C2613

== ENCOUNTER → 2021-12-09 | Outpatient (CLI) | payer BC, SELFPAY ==
--- NOTE | 2021-12-10 05:46 | PFTCOMP ---
COMPLETE PULMONARY FUNCTION TEST INTERPRETATION Brief HPI: Patient is a 65 year old male, currently under the care of Dr. Adkins, who presents to [facility] for complete pulmonary function tests secondary to diagnosis of lung cancer. Respiratory therapist reports good effort and reproducible results. Interpretation: Forced expiration spirometry shows a mild large airways obstructive ventilatory defect with an FEV1 of 70% predicted. There is no significant bronchodilator response by strict ATS criteria. Spirograms are of good quality and plateau slowly, indicating slowly emptying areas of the lungs. The respiratory flow volume loop shows decreased expiratory flow rates at all lung volumes consistent with airway obstruction. Lung volumes by body plethysmography show a normal total lung capacity at 5.72 L, 97% predicted. All other lung volumes are within normal limits. Diffusion capacity by carbon monoxide is normal at 81% predicted. The airway resistance is normal. No previous pulmonary function tests were available for review. Impression: Irreversible mild large airways obstructive ventilatory defect with preserved diffusion capacity and lung volumes, and a pattern consistent with chronic bronchitis.
== END | disposition home or self-care (01) ==
LOC: PSN 09:13
PROVIDERS: PCP Family Medicine; Referring Provider Nurse Practitioner Acute Care; Visit Provider Nurse Practitioner Acute Care
DX: Z72.0 Tobacco use (principal)
CPT/HCPCS: 94060; 94726; 94729

== ENCOUNTER → 2021-12-15 | Outpatient (CLI) | payer BC, SELFPAY ==
--- NOTE | 2021-12-15 17:48 | RAD_ITS ---
STUDY: X-RAY - ORBITS REASON FOR EXAM: Male, 65 years old. H/O METAL TO EYE TECHNIQUE: 2 view(s) of the orbits were obtained. COMPARISON: None. FINDINGS: Normal bilateral orbits without a metallic orbital foreign body. Normal visualized facial bones. Normal paranasal sinuses. The soft tissue structures are unremarkable. RAD/Orbits for Foreign Body IMPRESSION: No demonstrated metallic orbital foreign body. The patient is cleared for an MRI examination. Electronically Signed: Alli Deng MD at 18:12 EDT ,
--- NOTE | 2021-12-15 17:55 | MRI_ITS ---
EXAM: MR HEAD WITHOUT AND WITH INTRAVENOUS CONTRAST CLINICAL INDICATION: STAGING NSCLC TECHNIQUE: Multiplanar and multisequence MR images of the brain were obtained without and with intravenous contrast. This report was created using Xanody[employer] report generation technology. CONTRAST: IV DOTAREM 16mL COMPARISON: None. FINDINGS: BRAIN AND EXTRA-AXIAL SPACES: No diffusion restriction throughout the brain parenchyma. No focal signal abnormalities brain parenchyma in all pulse sequences. Following IV contrast administration, there are no suspicious enhancing lesions intraaxially and extra-axially. Normal ventricles and cisterns. No intra- or extra-axial hemorrhage. No evidence of acute infarct. No intracranial mass or mass effect. There is preservation of the sim/white matter interface. Posterior fossa structures are unremarkable. No hydrocephalus. SELLA: Unremarkable. Normal sella turcica, pituitary gland, infundibular stalk, optic chiasm and hypothalamus. AUDITORY SYSTEM: Unremarkable. The internal auditory canals are patent. BONES/JOINTS: Unremarkable. No discrete lytic or blastic abnormalities. SINUSES: Unremarkable as visualized. Clear. MASTOID AIR CELLS: Unremarkable as visualized. Clear. ORBITS: Unremarkable as visualized. Both globes, extraocular muscles, optic nerves and retrobulbar fat appear unremarkable. VASCULATURE: Unremarkable as visualized. Normal flow voids in the major intracranial circulation. MRI/Brain W/WO Contrast IMPRESSION: Normal MRI brain with and without contrast. Electronically Signed: Phani Drummond MD at 8:33 EDT ,
== END | disposition home or self-care (01) ==
LOC: MRI 17:34
PROVIDERS: PCP Family Medicine; Visit Provider Internal Medicine Hematology & Oncology
DX: C34.90 Malignant neoplasm of unspecified part of unspecified bronchus or lung (principal); Z87.828 Personal history of other (healed) physical injury and trauma
CPT/HCPCS: 70030; 70553; A9575

== ENCOUNTER 2021-12-29 12:08 | Day surgery (SDC) | payer BC, SELFPAY ==
--- NOTE | 2021-12-28 15:02 | PCM.HP.STD ---
HPI - General HPI Narrative The patient is a 66-year-old male with a history of newly diagnosed non-small cell lung cancer. The diagnosis was made in November [address]-guided core needle biopsy. In follow-up, a PET scan was completed in December 2021 and revealed increased uptake in the mediastinal and bilateral hilar lymph nodes concerning for viable neoplasm. The patient was initially referred to thoracic surgery at [facility]. Dr. Heredia at [facility] recommended mediastinal lymph node sampling via EBUS to rule out granulomatous disease prior to consideration for surgical intervention. The patient does have an approximate 95-[id number] smoking history and does continue to smoke 1 pack of cigarettes per day. Pulmonary function studies completed in November 2021 demonstrated in a reversible mild large airways obstructive ventilatory defect with preserved lung volumes and diffusing capacity. [facility] Medical History (Updated 12/27/21 @ 15:10 by Rissa Frias) Atherosclerotic heart disease of [place] coronary artery without angina pectoris Bradycardia Cancer of lower lobe of right lung Cardiology follow-up encounter Chronic systolic congestive heart failure Essential hypertension Former smoker History of echocardiogram History of stress test Hyperlipidemia Ischemic cardiomyopathy Kidney stones Non-ST elevated myocardial infarction (non-STEMI) (~11/2015) Old myocardial infarction Preoperative cardiovascular examination Presence of stent in coronary artery (~11/30/15) Tobacco use Wears dentures Home Medications aspirin 81 mg PO DAILY@0800 12/03/15 [History Last Taken 12/23/21] atorvastatin 80 mg tablet 80 mg PO QHS #90 tab 10/14/21 [Rx Last Taken 11/24/21 20:00] clopidogrel 75 mg tablet 75 mg PO DAILY #90 tab 10/14/21 [Rx Last Taken 12/23/21] lisinopril 10 mg tablet 10 mg PO BID #180 tab 10/14/21 [Rx Last Taken 11/25/21 07:00] metoprolol succinate 50 mg tablet,extended release 24 hr 50 mg PO QDAY #90 tab 10/14/21 [Rx Last Taken 11/25/21 07:00] nitroglycerin 0.4 mg sublingual tablet 0.4 mg SUBLINGUAL Q5M PRN #25 tab 10/14/21 [Rx Last Taken Unknown] Allergy/AdvReac Type Severity Reaction Status Date / Time No Known Allergies Allergy Verified 12/27/21 14:57 Family History Grandfather CAD (coronary artery disease) Brother Cancer Surgical History History of coronary artery stent placement Presence of coronary angioplasty implant and graft (~11/30/15) S/P right rotator cuff repair Social History Smoking Status: Former smoker quit date: 12/05/21 Tobacco: How many years used: 45 how long ago did patient quit smoking: smoked 0.7vfij38 years, more when he was working alcohol intake: never substance use type: does not use caffeine: Yes Type: carbonated beverages and coffee Number of servings: 1 what type of physical activity do you participate in: none seatbelt use: always do you feel safe at home: Yes ROS ROS Narrative As per HPI. Physical Exam Const alert and no apparent distress General Appearance: cooperative HEENT normocephalic and head/scalp atraumatic Eyes PERRL and EOMs intact bilaterally Neck supple General: trachea midline Resp normal respiratory effort Auscultation: diminished lung sounds Cardio regular rate and regular rhythm GI normal to inspection, nondistended, normoactive bowel sounds Extremity no clubbing, cyanosis or edema Skin no rashes or lesions noted Neuro CN's II-XII intact bilaterally and no focal motor deficits Psych affect normal Appearance: appropriate Assessment & Plan Assessment/Plan (1) Mediastinal lymphadenopathy: PLAN: The patient has recently diagnosed 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 Recent PET scan from December demonstrated increased uptake in the right lower lobe along with bilateral mediastinal and hilar lymph nodes. His case was discussed with thoracic surgery at [facility], who felt that the patient's mediastinum needed to be sampled in order to rule out granulomatous disease prior to consideration for any form of surgical intervention. Therefore, we will proceed with EBUS facilitated transbronchial needle aspiration. Risks and benefits of the proposed procedure was discussed with the patient. He is agreeable to proceed.
[2021-12-28 16:33] LABS: Hematocrit 44.4 % (40-54); Mean Corp Hgb Conc 33.8 g/dL (32-36); Mean Corpuscular Hgb 32.7 pg (27.0-32.0); Mean Corpuscular Volume 96.7 fL (80-94); Mean Platelet Vol. 10.1 fl (6.2-12.0); Platelet Count 278 K/mm3 (150-450); RBC Distribution Width CV 13.7 % (11.6-14.6); RBC Distribution Width SD 48.8 fl (35.1-43.9); Red Blood Count 4.59 M/mm3 (4.6-6.2); White Blood Count 8.5 K/mm3 (4.4-11.0)
[2021-12-28 16:58] LABS: Prothrombin Time (Protime)PT. 12.6 SECONDS (11.7-14.9)
[2021-12-28 16:59] LABS: Partial Thromboplast Time 28.1 Seconds (24.1-36.2)
[2021-12-29] VITALS (7 sets, daily range): BP systolic 101–135; BP diastolic 58–72; PULSE 49–68; RESP 16–20; TEMP 35.8–37.1; O2SAT 91–99; BMI 29.7
[2021-12-29] MEDS: Lactated Ringers 1,000 ML 15 ML IV (12:30)
--- NOTE | 2021-12-29 13:15 | ASPIG_PTH ---
PATIENT: KATARINA MELGOZA LOC: EN U#:[id number] AGE/SX: 66/M ROOM: RE12/29/[address]: Dr. Geoffrey Adkins DO : 1955 BED: DIS: 12/29/2021 SPEC #: [id number] RECD: 12/29/21 14:37 STATUS: ZOË REQ #: [id number] MIN: 12/29/21 13:[address]: Geoffrey Adkins DEPT: CYTOLOGY RECD BY: Marnie Miranda ENTERED: 12/29/21 14:38 SP TYPE: ASP OUT OTHR DR: MD Ana Noe, CHANNEL CEMENTER-C Tissues: Lung, NOS Procedures: FNA Specimen Adequacy Special Stain Group II Surgery Specimen Level IV Cytology Other HEADER OPERATION: EBUS with TBNA PRE-OP DIAGNOSIS: PET positive, mediastinal LAD TISSUE SUBMITTED: A - EBUS, TBNA, site 10L #1, B - EBUS, TBNA, site 10L #2, C - EBUS, TBNA, site 7 #3, D - EBUS, TBNA, site 7 #4, E - EBUS, TBNA, site 7 #5, F - EBUS, TBNA, site 4R #6, G - EBUS, TBNA, site 4R #7, H - EBUS, TBNA, site 4R #8, I - EBUS, TBNA, site 10L, J - EBUS, TBNA, site 7, K - EBUS, TBNA, site 4R DIAGNOSIS CYTOLOGY A. EBUS, TBNA, site 10L #1: Predominantly respiratory epithelial cells. Negative for malignant cells. Granulomas are not seen. B. EBUS, TBNA, site 10L #2: Respiratory epithelial cells and lymphocytes present. Negative for malignant cells. Adequate for evaluation. Granulomas are not seen. C. EBUS, TBNA, site 7 #3: Respiratory epithelial cells and lymphocytes present. Negative for malignant cells. Adequate for evaluation. Granulomas are not seen. D. EBUS, TBNA, site 7 #4: Respiratory epithelial cells and lymphocytes present. Negative for malignant cells. Adequate for evaluation. Granulomas are not seen. E. EBUS, TBNA, site 7 #5: Predominantly respiratory epithelial cells. Negative for malignant cells. Granulomas are not seen. F. EBUS, TBNA, site 4R #6: Respiratory epithelial cells and lymphocytes present. Negative for malignant cells. Adequate for evaluation. Granulomas are not seen. G. EBUS, TBNA, site 4R #7: Respiratory epithelial cells and lymphocytes present. Negative for malignant cells. Adequate for evaluation. Granulomas are not seen. H. EBUS, TBNA, site 4R #8: Mostly blood. Rare respiratory epithelial cells. I. EBUS, TBNA, site 10L fluid (cell block): Negative for malignant cells. See cytology study. J. EBUS, TBNA, site 7 fluid (cell block): Negative for malignant cells. See cytology study. K. EBUS, TBNA, site 4R fluid (cell block): Negative for malignant cells. See cytology study. SJ:jesu 12/30/2021 COMMENT The specimen is evaluated at the time of procedure by Dr. Davies. Rapid Onsite Evaluation: A. EBUS, TBNA, site 10L #1: Predominantly respiratory epithelial cells. Negative for malignant cells. Granulomas are not seen. B. EBUS, TBNA, site 10L #2: Respiratory epithelial cells and lymphocytes present. Negative for malignant cells. Adequate for evaluation. Granulomas are not seen. C. EBUS, TBNA, site 7 #3: Respiratory epithelial cells and lymphocytes present. Negative for malignant cells. Adequate for evaluation. Granulomas are not seen. D. EBUS, TBNA, site 7 #4: Respiratory epithelial cells and lymphocytes present. Negative for malignant cells. Adequate for evaluation. Granulomas are not seen. E. EBUS, TBNA, site 7 #5: Predominantly respiratory epithelial cells. Negative for malignant cells. Granulomas are not seen. F. EBUS, TBNA, site 4R #6: Respiratory epithelial cells and lymphocytes present. Negative for malignant cells. Adequate for evaluation. Granulomas are not seen. G. EBUS, TBNA, site 4R #7: Respiratory epithelial cells and lymphocytes present. Negative for malignant cells. Adequate for evaluation. Granulomas are not seen. H. EBUS, TBNA, site 4R #8: Mostly blood. Rare respiratory epithelial cells. Flow cytometry studies from [facility] show no evidence of a B-cell or T-cell lymphoma. Complete report is viewable in patient?s EMR. Please make reference to previous specimen ([id number]) right lung mass, CT-guided core biopsy with diagnosis of ?non-small cell carcinoma, favor adenocarcinoma with focal mucinous and squamoid differentiation.? CYTOLOGY STUDY Slides are reviewed. I. The specimen consists of respiratory epithelial cells and lymphocytes. Granulomas are not seen. J. A few lymphocytes are noted. Granulomas are not seen. K. The specimen consists of respiratory epithelial cells, lymphocytes and carbon-laden histiocytes. Granulomas are not seen. CYTOLOGY GROSS A - Received labeled with the patient's name and and designated EBUS, TBNA, site 10L #1. The specimen consists of two stained smears for GURPREET (Rapid Onsite Evaluation). B - Received labeled with the patient's name and and designated EBUS, TBNA, site 10L #2. The specimen consists of two stained smears for GURPREET. C - Received labeled with the patient's name and and designated EBUS, TBNA, site 7 #3. The specimen consists of two stained smears for GURPREET. D - Received labeled with the patient's name and and designated EBUS, TBNA, site 7 #4. The specimen consists of two stained smears for GURPREET. E - Received labeled with the patient's name and and designated EBUS, TBNA, site 7 #5. The specimen consists of two stained smears for GURPREET. F - Received labeled with the patient's name and and designated EBUS, TBNA, site 4R #6. The specimen consists of two stained smears for GURPREET. G - Received labeled with the patient's name and and designated EBUS, TBNA, site 4R #7. The specimen consists of two stained smears for GURPREET. H - Received labeled with the patient's name and and designated EBUS, TBNA, site 4R #8. The specimen consists of two stained smears for GURPREET. I - Received in RPMI is 20 ml of pink, needle rinsed fluid labeled with the patient's name and and designated EBUS, TBNA, site 10L. The specimen is submitted for cell block preparation and flow cytometry studies. J - Received in RPMI is 20 ml of pink, needle rinsed fluid labeled with the patient's name and and designated EBUS, TBNA, site 7. The specimen is submitted for cell block preparation and flow cytometry studies. K - Received in RPMI is 20 ml of pink, needle rinsed fluid labeled with the patient's name and and designated EBUS, TBNA, site 4R. The specimen is submitted for cell block preparation and flow cytometry studies. Note: Half of the fluid from specimens I, J and K is combined and submitted for flow cytometry studies. / SJ:jesu 12/29/2021 TC:5 CPT: 79745 x3, 19247 x3, 65826 x3, 27950 x5
[2021-12-29] MEDS: Lidocaine 4% 5 ML Ampul INHALATION (13:23)
[2021-12-29] MEDS: Lidocaine 2% Jelly 1 APPLIC Tube (13:36)
--- NOTE | 2021-12-29 14:31 | OP.BRONCH_ITS ---
Patient Name: Jesse Estrada Procedure Date: 12/29/2021 1:27 PM Date of : 1955 Age: 66 Procedure: Bronchoscopy Indications: Mediastinal adenopathy, Known lung cancer Providers: Geoffrey Adkins MD Complications: No immediate complications Procedure: Pre-Anesthesia Assessment: - A History and Physical has been performed. Patient meds and allergies have been reviewed. The risks and benefits of the procedure and the sedation options and risks were discussed with the patient. All questions were answered and informed consent was obtained. Patient identification and proposed procedure were verified prior to the procedure by the physician and the nurse in the procedure room. Mental Status Examination: alert and oriented. Airway Examination: normal oropharyngeal airway. Respiratory Examination: clear to auscultation. CV Examination: normal. ASA Grade Assessment: III - A patient with severe systemic disease. After reviewing the risks and benefits, the patient was deemed in satisfactory condition to undergo the procedure. The anesthesia plan was to use general anesthesia. Immediately prior to administration of medications, the patient was re-assessed for adequacy to receive sedatives. The heart rate, respiratory rate, oxygen saturations, blood pressure, adequacy of pulmonary ventilation, and response to care were monitored throughout the procedure. The physical status of the patient was re-assessed after the procedure. After I obtained informed consent, the scope was passed under direct vision. Throughout the procedure, the patient's blood pressure, pulse, and oxygen saturations were monitored continuously. The ultrasound bronchoscope was introduced through the mouth, via laryngeal mask airway and advanced to the tracheobronchial tree. The bronchoscope was introduced through the mouth, via laryngeal mask airway and advanced to the tracheobronchial tree. The procedure was accomplished without difficulty. The patient tolerated the procedure well. Findings: The laryngeal mask airway is in good position. The vocal cords appear normal. The subglottic space is normal. The trachea is of normal caliber. The belinda is sharp. The tracheobronchial tree was examined to at least the first subsegmental level. Bronchial mucosa and anatomy are normal; there are no endobronchial lesions, and no secretions. The scope was withdrawn and replaced with the EBUS bronchoscope to accomplish the ultrasound examination. Lymph Nodes: An endobronchial ultrasound endoscope was utilized to systematically examine the right lower paratracheal region (level 4R), subcarinal mediastinum (level 7) and left hilar region (level 10L) in order to assist with guiding the biopsy needle. Lymph node sizing was performed via endobronchial ultrasound for known non-small cell lung cancer. Sampling by transbronchial needle aspiration was also performed using an Olympus EBUS-TBNA 19 gauge needle in the right lower paratracheal region (level 4R), subcarinal mediastinum (level 7) and left hilar region (level 10L) and sent for routine cytology and flow cytometry. - The 10L (hilar) node was evaluated. Two samples with the needle were obtained. - The 7 (subcarinal) node was evaluated. Three samples with the needle were obtained. - The 4R (distal paratracheal) node was evaluated. Three samples with the needle were obtained. Impression: - Mediastinal adenopathy - Known lung cancer - The airway examination was normal. - Endobronchial ultrasound was performed. - Lymph node sizing and sampling was performed. Recommendation: - Await biopsy results. Procedure Code(s): --- Professional --- 90360, Bronchoscopy, rigid or flexible, including fluoroscopic guidance, when performed; with endobronchial ultrasound (EBUS) guided transtracheal and/or transbronchial sampling (eg, aspiration[s]/biopsy[ies]), 3 or more mediastinal and/or hilar lymph node stations or structures Diagnosis Code(s): --- Professional --- R59.0, Localized enlarged lymph nodes C34.90, Malignant neoplasm of unspecified part of unspecified bronchus or lung R09.89, Other specified symptoms and signs involving the circulatory and respiratory systems CPT copyright 2017 [employer]. All rights reserved. The codes documented in this report are preliminary and upon sorting supervisor review may be revised to meet current compliance requirements. DO Geoffrey Solorio MD 12/29/2021 2:30:45 PM This report has been signed electronically. Number of Addenda: 0 Note Initiated On: 12/29/2021 1:27 PM
[2021-12-29] MEDS: Ipratropium/Albuterol Sulfate 3 ML AMPUL.NEB INHALATION (15:24)
--- NOTE | 2021-12-29 15:41 | SUR.PHASEI ---
MARKUS ORDERED FOR PATIENT D/T SOME WHEEZING AND RHONCHI. RESPIRATORY THERAPY CAME TO DO TREATMENT AND SAID MOSTLY RHONCHI TO HER. SHE BELIEVED PROBABLY DUE TO T HE BRONCHOSCOPY AND SHOULD CLEAR. PATIENT HAS A NICE STRONG COUGH WHEN HE DOES COUGH.
== END 2021-12-29 16:43 | disposition home or self-care (01) ==
LOC: EN 12:08 → AC 12:10
PROVIDERS: Nurse Practitioner Acute Care; PCP Family Medicine; Referring Provider Internal Medicine Critical Care Medicine; Visit Provider Internal Medicine Critical Care Medicine
PROC: BB4BZZZ Ultrasonography of Pleura (ICD-10-PCS; CPT 31653; principal; 2021-12-29 12:45)
DX: C34.90 Malignant neoplasm of unspecified part of unspecified bronchus or lung (principal); I11.0 Hypertensive heart disease with heart failure; I50.22 Chronic systolic (congestive) heart failure; Z87.891 Personal history of nicotine dependence; Z79.82 Long term (current) use of aspirin; I25.5 Ischemic cardiomyopathy; I25.10 Atherosclerotic heart disease of native coronary artery without angina pectoris; Z79.02 Long term (current) use of antithrombotics/antiplatelets; E78.5 Hyperlipidemia, unspecified; R59.0 Localized enlarged lymph nodes; R09.89 Other specified symptoms and signs involving the circulatory and respiratory systems; I25.2 Old myocardial infarction; Z95.5 Presence of coronary angioplasty implant and graft
CPT/HCPCS: 31653; 36415; 85027; 85610; 85730; 88161; 88172; 88305; 88313; J7120; J2405

== ENCOUNTER 2022-03-08 09:26 | Day surgery (SDC) | payer BC, SELFPAY ==
[2022-03-08 09:55] VITALS: BP 124/74; PULSE 56; RESP 16; TEMP 36.2; O2SAT 95; BMI 28.3
[2022-03-08] MEDS: Lactated Ringers 1,000 ML 15 ML IV (09:58)
--- NOTE | 2022-03-08 10:01 | PCM.HP.BLA ---
History and Physical Date of Admission: 03/08/22 Intake Vital Signs ? 03/03/2209:38 Height 5 ft 6 in Weight: 182 lb 4 oz BMI 29.4 BP 121/70 H Blood Pressure Location Rt brachial Position Sitting Respiration 18 Pulse 53 L Pulse Source NIBP Temp 97.2 F L Temp Source Temporal Pulse Oximetry (%) 98 Oxygen Delivery Method room air Intake Visit Reasons:?PORT PLACEMENT Chief Complaint: port placement Foreign Agent Required: No Is patient in pain?: No Allergies No Known Allergies Allergy (Verified 03/03/22 09:39) Medications aspirin 81 mg tablet,delayed release 81 mg PO DAILY@0800 12/03/15 [History Confirmed 03/03/22] atorvastatin 80 mg tablet 80 mg PO QHS #90 tabs 10/14/21 [Rx Confirmed 03/03/22] clopidogrel 75 mg tablet 75 mg PO DAILY #90 tabs 10/14/21 [Rx Confirmed 03/03/22] lisinopril 10 mg tablet 10 mg PO BID #180 tabs 10/14/21 [Rx Confirmed 03/03/22] metoprolol succinate 50 mg tablet,extended release 24 hr 50 mg PO QDAY #90 tabs 10/14/21 [Rx Confirmed 03/03/22] nitroglycerin 0.4 mg sublingual tablet 0.4 mg sublingual Q5M PRN Chest Pain #25 tabs 10/14/21 [Rx Confirmed 03/03/22] PFSH Medical History? Atherosclerotic heart disease of [place] coronary artery without angina pectoris Bradycardia Cancer of lower lobe of right lung Cardiology follow-up encounter Chronic systolic congestive heart failure Essential hypertension Former smoker History of echocardiogram History of stress test Hyperlipidemia Ischemic cardiomyopathy Kidney stones Non-ST elevated myocardial infarction (non-STEMI) (~11/2015) Old myocardial infarction Preoperative cardiovascular examination Presence of stent in coronary artery (~11/30/15) Tobacco use Wears dentures Surgical History? History of coronary artery stent placement Presence of coronary angioplasty implant and graft (~11/30/15) S/P right rotator cuff repair Status post lobectomy of lung Family History? Grandfather CAD (coronary artery disease)Brother Cancer Social History? Smoking Status:? Former smoker quit date: 12/05/21 Tobacco: How many years used:? 45 how long ago did patient quit smoking:? smoked [id number] years, more when he was working alcohol intake:? never substance use type:? does not use caffeine:? Yes Type: carbonated beverages and coffee Number of servings: 1 what type of physical activity do you participate in:? none seatbelt use:? always do you feel safe at home:? Yes HPI HPI HPI: KATARINA MELGOZA, is a 66 M who presents to the office today for port placement for chemotherapy.? Patient was found to have right lung cancer with metastatic disease. ROS General General: No weight change or fatigue HEENT HEENT: No difficulty swallowing Endo Endocrine: No thyroid disease Musc Musculoskeletal: No back problems or arthritis Cardio Cardiovascular: No pacemaker, heart disease, atrial fibrillation, high blood pressure, heart attack, heart stent, palpitations or chest pain Psych Psychiatric: No depression or anxiety Resp Respiratory: No shortness of breath, No cough, No COPD, No asthma and No emphysema Gastro Gastrointestinal: No abdominal pain, No nausea or vomiting, No diarrhea, No constipation, No blood in stool, No acid reflux, No hemorrhoids, No ulcers, No gallbladder problem and No black,tarry stools [place] Hematologic: No blood thinners Exam Const General: cooperative Orientation: alert and oriented x3 HENMT Head: normal to inspection Neck Neck: normal visual inspection and full ROM Chest Chest palpation & inspection: normal inspection of the chest Resp Effort & Inspection: normal respiratory effort Auscultation: clear to auscultation bilaterally Cardio Rate: regular rate Rhythm: regular rhythm GI Inspection: non-distended Palpation: soft and nontender Skin General: no rashes or lesions noted Neuro General: patient alert and patient oriented x3 Extrem General: full ROM Psych Appearance: grossly normal Mental Status: mental status grossly normal Assessment and Plan Assessment and Plan (1) Cancer of lower lobe of right lung: ?Status:?Acute (2) Encounter for insertion of venous access port: ?Status:?Acute Plan Patient has right lung cancer and requires port for chemotherapy.? I discussed chest port placement with the patient in detail.? I discussed the risks of the procedure such as bleeding, infection, pneumothorax, line infection.? Patient understands the risks and is willing to proceed with right chest port placement.? Patient will hold his aspirin Plavix for 5 days prior to the procedure. El Orosco MD Pager: [facility] [address] [place] [address], [address] [place] [address] Office: I have re-examined the patient. There are no clinical changes since date of exam.
[2022-03-08] MEDS: Cefazolin 2 GM in 0.9% Normal Saline 100 ML IV (11:07)
--- NOTE | 2022-03-08 11:44 | OP.PCM_ITS ---
Report of Operation Date of Procedure: 03/08/22 Pre-Operative Diagnosis: Lung cancer and need for vascular access for chemother apy Post-Operative Diagnosis: Same Surgery/Procedure Performed:: Ultrasound and fluoroscopy guided right chest port placement utilizing right IJ Description of Procedure: After obtaining informed consent patient was brought back to the operating room MAC anesthesia was induced and the right chest and neck were prepped in normal sterile fashion. Ultrasound was used to evaluate both IJs and the right IJ was selected. Next, using a needle, the right IJ was accessed and a guidewire was passed on into the superior vena cava under fluoroscopy guidance. A small incision was made over the puncture site and the dilator introducer was placed over the guidewire. Next this was capped and the pocket was made for the port. 1% lidocaine with epinephrine was injected in the proposed port site. An incision was made with scalpel. Electrocautery was used to make a pocket under the skin and subcutaneous tissue. Hemostasis was obtained. Next, the catheter was tunneled up to the neck incision site and placed through the introducer. The peel-away introducer was removed and the position of the catheter was confi rmed on fluoroscopy. Next, the catheter was trimmed and attached to the port with the locking device. Interrupted 2-0 Vicryl sutures were used to anchor the port to the chest wall and then the port was placed inside the pocket. The pocket was then flushed with saline and the port irrigated with saline. There was good blood return and the port flushed easily. Next, heparin was injected into the port. The skin was closed with subcutaneous interrupted 3-0 Vicryl sutures. A single 3-0 Vicryl sutures placed under the skin at the neck incision site. Steri-Strips were placed as well as op sites. Patient tolerated procedure well, was taken to PACU in stable condition. Chest x-ray will be obtained. Grafts/Implants Used: 8 [place] PowerPort Admit VTE Documentation VTE Mechan Device Prophylaxis: SCD's
[2022-03-08 11:45] VITALS: BP 118/73; BP 124/74; PULSE 67; RESP 16; TEMP 36.3; O2SAT 96
--- NOTE | 2022-03-08 11:45 | DCINST_ITS ---
Discharge Instructions Procedure Port-A-Cath Diet Discharge Diet: Light diet - advance as tolerated (Pain medication may cause nausea. You should typically eat light foods as you take your pain medication.) Activity Discharge Activity: Return to Normal Activity and May Shower (with your bandage in place in 1-2 days after surgery. DO NOT SHOWER WHEN YOUR PORT IS ACCESSED.) Lifting Restrictions: 10 pounds for 1 week Additional Activity Instructions:: Resume blood thinners on Sunday Dressing / Incision Call your doctor if your incision/area has: Continuous Slow Oozing, Sudden Increased Bleeding, Increased Pain/ Swelling, Increased Redness and Foul Smelling Discharge Call your doctor if you observe: Fever of 101 or Higher Remove Dressing in: 2 days Cleanse incision/area with: Soap & Water Follow Up Care Please Follow Up With: El Orosco MD When: as needed [phone] Test Results: Test results from this visit will be discussed in further detail at your follow- up appointment, if applicable. Discharge Plan Admission Attending Provider: El Orosco Primary Care Provider: George Cutler Discharge Orders/Prescriptions Prescriptions: No Action prochlorperazine maleate 10 mg tablet 10 mg PO Q6H PRN (Reason: nausea and vomiting) Qty: 30 2RF ondansetron 8 mg tablet,disintegrating 8 mg PO Q8H PRN (Reason: nausea and vomiting) Qty: 30 2RF lidocaine-prilocaine 2.5-2.5 % cream 1 applic topical ONCE PRN (Reason: port access) 30 Days Qty: 30 2RF aspirin 81 MG tablet 81 mg PO DAILY@0800 atorvastatin 80 mg tablet 80 mg PO QHS Qty: 90 4RF clopidogrel 75 mg tablet 75 mg PO DAILY Qty: 90 4RF lisinopril 10 mg tablet 10 mg PO BID Qty: 180 4RF metoprolol succinate 50 mg tablet extended release 24 hr 50 mg PO QDAY Qty: 90 4RF nitroglycerin 0.4 mg tablet, sublingual 0.4 mg SUBLINGUAL Q5M PRN (Reason: Chest Pain) Qty: 25 3RF Rx Instructions: script never filled Referrals / Follow Up: George Cutler MD [Primary Care Provider] - Disposition Disposition (needs filled in before D/C Order can be placed): Home, Self Care
[2022-03-08 11:50] VITALS: BP 112/76; BP 124/74; PULSE 65; RESP 16; O2SAT 94
[2022-03-08 11:55] VITALS: BP 115/72; BP 124/74; PULSE 62; RESP 16; O2SAT 96
--- NOTE | 2022-03-08 11:55 | RAD_ITS ---
STUDY: X-RAY CHEST REASON FOR EXAM: Male, 66 years old. Line placement -- in pacu TECHNIQUE: Single AP portable view of the chest. COMPARISON: Comparison is made with prior study dated 11/25/2021. FINDINGS: A right-sided Port-A-Cath has been placed. The tip is at the junction of the superior vena cava and right atrium. Mild loss in the right middle lobe. There is no demonstrated pleural abnormality. Normal size heart. Normal mediastinum and akin. Normal visualized pulmonary arteries. Normal visualized aortic arch and descending thoracic aorta. There are diffuse degenerative changes of the visualized thoracic spine. Normal visualized ribs, clavicles, and shoulders. There is no demonstrated abnormality of the visualized soft tissue structures of the upper abdomen. RAD/CXR for Line Placement IMPRESSION: The tip of the emile catheter is at the junction of the superior vena cava and right atrium. Mild loss of the right middle lobe. Electronically Signed: Jermain Ho MD at 12:33 EDT ,
[2022-03-08 12:00] VITALS: BP 106/80; BP 124/74; PULSE 61; RESP 16; TEMP 36.6; O2SAT 96
[2022-03-08 12:45] VITALS: BP 112/75; BP 124/74; PULSE 62; RESP 16; TEMP 36.1; O2SAT 98
== END 2022-03-08 12:56 | disposition home or self-care (01) ==
LOC: SDC 09:28 → AC 09:30
PROVIDERS: PCP Family Medicine; Visit Provider Surgery
PROC: (CPT 36561; principal; 2022-03-08 10:45)
DX: Z45.2 Encounter for adjustment and management of vascular access device (principal); C34.31 Malignant neoplasm of lower lobe, right bronchus or lung; J44.9 Chronic obstructive pulmonary disease, unspecified; I50.22 Chronic systolic (congestive) heart failure; I11.0 Hypertensive heart disease with heart failure; Z87.891 Personal history of nicotine dependence; Z79.899 Other long term (current) drug therapy; Z79.82 Long term (current) use of aspirin; Z79.02 Long term (current) use of antithrombotics/antiplatelets; I25.2 Old myocardial infarction; E78.5 Hyperlipidemia, unspecified; I25.5 Ischemic cardiomyopathy; I25.10 Atherosclerotic heart disease of native coronary artery without angina pectoris; Z95.5 Presence of coronary angioplasty implant and graft
CPT/HCPCS: 36561; 71045; 77001; J7120; C1788

== ENCOUNTER 2022-04-10 11:12 | Observation (INO) | payer BC, SELFPAY ==
[2022-04-10] VITALS (9 sets, daily range): BP systolic 60–122; BP diastolic 45–78; PULSE 69–113; RESP 16–27; TEMP 36.2–36.7; O2SAT 92–96; BMI 26.7; BMI 26.4
--- NOTE | 2022-04-10 12:04 | EKG12_ITS ---
Test Reason : Blood Pressure : / mmHG Vent. Rate : 093 BPM Atrial Rate : 093 BPM P-R Int : 122 ms QRS Dur : 086 ms QT Int : 350 ms P-R-T Axes : 060 046 091 degrees QTc Int : 435 ms Normal sinus rhythm Nonspecific T wave abnormality Abnormal ECG Confirmed by JENNY TRACEY, FRANCIS ([id number]), industrial editor RAYMON OWENS ([id number]) on 04/11/2022 7:44:59 AM Referred By: Confirmed By:FRANCIS ALVARADO MD
--- NOTE | 2022-04-10 12:06 | EDS_ITS ---
HPI History of Present Illness Chief Complaint: Nausea/Vomiting Informant: patient and spouse/S.O. Narrative Narrative: Sent in here from oncology service. I spoke with oncology prior to his arrival. Recent new diagnosis non-small cell lung cancer earlier this year status post resection right lower lobe per spouse. Chemotherapy started March 16 had subsequent mild nausea and vomiting. His last chemo repeat it was on 20 for 4 days ago. He was doing well until 2 days ago. Yesterday vomiting throughout the day. This morning had coffee-ground emesis 3-4 episodes. Mild lightheaded symptoms. He is on aspirin and Plavix last dose taken yesterday. Last bowel movement 2 days ago. Mild epigastric abdominal pain. Oncologist Dr. Del Rio. He did take a Zofran this morning, mild nausea at this time. Denies any congestive heart failure history. History of heart attack with 2 stents. Prior similar symptoms: Yes PFSH [facility] Medical History Atherosclerotic heart disease of [place] coronary artery without angina pectoris Bradycardia Cancer of lower lobe of right lung Cardiology follow-up encounter Chronic systolic congestive heart failure CINV (chemotherapy-induced nausea and vomiting) Encounter for chemotherapy management Encounter for education Essential hypertension Former smoker Hiccups History of echocardiogram History of stress test Hyperlipidemia Ischemic cardiomyopathy Kidney stones Non-ST elevated myocardial infarction (non-STEMI) (~11/2015) Old myocardial infarction Preoperative cardiovascular examination Presence of stent in coronary artery (~11/30/15) Tobacco use Wears dentures Home Medications aspirin 81 mg tablet,delayed release 81 mg PO DAILY@0800 [facility] 12/03/15 [History Last Taken 04/09/22] atorvastatin 80 mg tablet 80 mg PO QHS #90 tabs 10/14/21 [Rx Last Taken 04/09/22] clopidogrel 75 mg tablet 75 mg PO DAILY #90 tabs 10/14/21 [Rx Last Taken 04/09/22] lisinopril 10 mg tablet 10 mg PO BID #180 tabs 10/14/21 [Rx Last Taken 04/09/22] metoprolol succinate 50 mg tablet,extended release 24 hr 50 mg PO QDAY #90 tabs 10/14/21 [Rx Last Taken 04/09/22] nitroglycerin 0.4 mg sublingual tablet 0.4 mg sublingual Q5M PRN Chest Pain #25 tabs 03/04/22 [Rx Last Taken Unknown] lidocaine-prilocaine 2.5 %-2.5 % topical cream 1 applic topical ONCE PRN port access 30 days #30 grams 03/06/22 [Rx Last Taken 04/06/22] ondansetron 8 mg disintegrating tablet 8 mg PO Q8H PRN nausea and vomiting #30 tabs 03/06/22 [Rx Last Taken 04/10/22] prochlorperazine maleate 10 mg tablet 10 mg PO Q6H PRN nausea and vomiting #30 tabs 03/06/22 [Rx Last Taken 04/09/22] baclofen 10 mg tablet 10 mg PO TID PRN hiccups #30 tabs 03/30/22 [Rx Last Taken 04/08/22] dexamethasone 4 mg tablet 8 mg PO .COMPLEX #6 tabs 03/30/22 [Rx Last Taken 04/09/22] Allergy/AdvReac Type Severity Reaction Status Date / Time No Known Allergies Allergy Verified 04/06/22 10:25 Family History Grandfather CAD (coronary artery disease) Brother Cancer Surgical History History of bronchoscopy History of coronary artery stent placement Presence of coronary angioplasty implant and graft (~11/30/15) S/P right rotator cuff repair Status post lobectomy of lung Social History Smoking Status: Former smoker quit date: 12/05/21 Tobacco: How many years used: 45 how long ago did patient quit smoking: smoked [id number] years, more when he was working alcohol intake: never substance use type: does not use caffeine: Yes Type: carbonated beverages and coffee Number of servings: 1 what type of physical activity do you participate in: none seatbelt use: always do you feel safe at home: Yes ROS ROS ED Constitutional Constitutional ED: Denies chills, fever(s) or sweats Eyes Eyes: Denies change in vision ENT ENT ED: Denies dysphagia or sore throat Cardiovascular Cardiovascular: Denies chest pain, leg edema, palpitations or racing heartbeat Respiratory/Chest Respiratory/Chest: Denies cough, dyspnea or dyspnea on exertion Gastrointestinal Gastrointestinal: Reports abdominal pain, nausea and vomiting; Denies diarrhea Genitourinary Genitourinary ED: Denies dysuria, hematuria or urinary frequency Musculoskeletal Musculoskeletal: Denies back pain, extremity pain or neck pain Integumentary Denies rash or wounds Neurologic Neurologic: Denies headache(s), paresthesias or weakness EXAM Physical Exam Const Vital Signs: 04/10/22 11:13 04/10/22 12:58 04/10/22 14:27 Temperature 97.2 F L 98.0 F 97.1 F L Temperature Source Temporal Temporal Temporal Pulse Rate 113 H 82 78 Respiratory Rate 16 27 H 19 H Blood Pressure 60/45 L 82/68 L 101/69 Blood Pressure Mean 50 72 79 Pulse Ox 94 96 95 Oxygen Delivery Method Room Air Room Air Room Air 04/10/22 14:27 04/10/22 15:09 Temperature 97.1 F L 97.2 F L Temperature Source Temporal Temporal Pulse Rate 69 79 Respiratory Rate 19 H 17 Blood Pressure 101/69 95/67 Blood Pressure Mean 79 76 Pulse Ox 96 93 Oxygen Delivery Method Room Air Room Air Positive well nourished and well developed General Appearance ED: well developed and NAD HEENT HEENT Narrative: Mild dry mucosa membranes. normocephalic and atraumatic Eyes PERRL, EOMs intact bilaterally and conjunctivae normal General Eye ED: Yes normal appearance of both eyes Neck no lymphadenopathy and supple General: Negative for tenderness Chest Wall Chest: Negative for tenderness Resp normal respiratory effort and normal air movement Effort and Inspection: symmetric chest movement; Negative for respiratory distress Cardio regular rhythm and no murmurs Rate: tachycardic Peripheral Pulses: pulses 2+ throughout GI normal to inspection, nondistended, normoactive bowel sounds GI Narrative: Minimal epigastric tenderness. Negative Evangelista's or McBurney's tenderness. Palpation: Negative for guarding or rebound tenderness present Back/Spine no CVA tenderness and no thoracic nor lumbar tenderness Extremity normal to inspection General Extremety ED: Negative for edema or tenderness General Extremity: Negative for edema Neuro oriented x3 and no sensory deficits noted Sensorium / Orientation: awake and alert Skin no rashes or lesions noted and no wounds MDM MDM MDM Narrative Medical decision making narrative: Patient initial blood pressure 60/45. He is given a liter of fluids, he has a nonsurgical abdomen. History of chemo induced nausea and vomiting that worsened this time around. From pictures from spouse. Coffee-ground emesis. He is ordered for 80 of Protonix IV. I did check labs hemoglobin turn at 14. Blood pressure responding to IV fluids. His white count returned at 59 he has no leukemia history. Per spouse was given Granulex this past Sunday 3 days ago. However atypical with this high. Urine and blood cultures,-added. Chest x-ray reviewed by myself and read by radiology negative for any acute process. I discussed with on-call GI DrIvana Olivas, will add continued Protonix infusion. He was seen as an inpatient. I discussed with his oncologist Dr. Del Rio, updated patient's history and findings. He will also follow as an inpatient. Creatinine returned at 1.47 up from 0.8. Likely prerenal with his history of vomiting. I spoke with hospitalist Dr. Keller for admission to PCU. Lab Data Attestation: I reviewed the patient's lab results. Labs: Laboratory Results - last 24 hr 04/10/22 04/10/22 04/10/22 13:00 13:00 13:00 WBC 59.0 H* RBC 4.29 L Hgb 14.0 Hct 41.2 MCV 96.0 H MCH 32.6 H MCHC 34.0 RDW Std Deviation 49.4 H RDW Coeff of Favio 14.1 Plt Count 259 MPV 11.2 Neut % (Auto) Not Reportable Absolute Neuts (auto) 54.3 H Absolute Lymphs (auto) 4.13 Total Counted 100 Neutrophils % (Manual) 88 H Band Neutrophils % 4 Lymphocytes % (Manual) 7 L Monocytes % (Manual) 1 Diff Path Review May foll Smudge Cells 2+ Platelet Estimate ADEQUATE RBC Morphology NORM C+C PT 12.5 INR 1.0 APTT 20.8 L Sodium 134 L Potassium 3.9 Chloride 95 L Carbon Dioxide 28.0 Anion Gap 11 BUN 42 H Creatinine 1.47 H Estim Creat Clear Calc 47.46 Est GFR (MDRD) Af Amer 62 Est GFR (MDRD) Non-Af 51 L BUN/Creatinine Ratio 28.6 H Glucose 222 H Calcium 9.6 Phosphorus Magnesium Total Bilirubin 1.50 H AST 16 ALT 34 Alkaline Phosphatase 191 H Total Protein 7.4 Albumin 3.3 Globulin 4.1 Albumin/Globulin Ratio 0.8 L Lipase 131 Blood Type Antibody Screen 04/10/22 04/10/22 13:00 13:00 WBC RBC Hgb Hct MCV MCH MCHC RDW Std Deviation RDW Coeff of Favio Plt Count MPV Neut % (Auto) Absolute Neuts (auto) Absolute Lymphs (auto) Total Counted Neutrophils % (Manual) Band Neutrophils % Lymphocytes % (Manual) Monocytes % (Manual) Diff Path Review Smudge Cells Platelet Estimate RBC Morphology PT INR APTT Sodium Potassium Chloride Carbon Dioxide Anion Gap BUN Creatinine Estim Creat Clear Calc Est GFR (MDRD) Af Amer Est GFR (MDRD) Non-Af BUN/Creatinine Ratio Glucose Calcium Phosphorus 4.5 Magnesium 2.1 Total Bilirubin AST ALT Alkaline Phosphatase Total Protein Albumin Globulin Albumin/Globulin Ratio Lipase Blood Type A NEGATIVE Antibody Screen NEGATIVE Radiography Diagnostic Testing: Clinical Impression(s) from Imaging Studies Chest X-Ray 04/10/22 14:12 IMPRESSION: Stable examination. No acute abnormality is seen. Electronically Signed: Jermain Ho MD at 14:24 EDT , EKG Initial EKG: Attestation: I personally reviewed and interpreted this EKG as follows: Comments: Sinus rate of 93, no ST or T wave changes. Discharge Plan Dx/Rx/DC Orders Clinical Impression: Acute upper GI bleed, Chemotherapy induced nausea and vomiting, Vomiting, RADHA (acute kidney injury), Transient hypotension, Non-small cell lung cancer (NSCLC), Leukocytosis Disposition Disposition: Acute Care Hospital [facility] Discharge Date/Time: 04/10/22 16:19
[2022-04-10] MEDS: 0.9% Normal Saline 1,000 ML 1000 ML IV (12:55)
[2022-04-10] MEDS: Ondansetron 4 MG/2 ML Vial IV ×2 (12:57→17:08)
[2022-04-10 13:11] LABS: Hematocrit 41.2 % (40-54); Mean Corpuscular Hgb 32.6 pg (27.0-32.0); Mean Platelet Vol. 11.2 fl (6.2-12.0); POSITIVE COUNT YES; POSITIVE DIFFERENTIAL YES; POSITIVE MORPHOLOGY YES; Platelet Count 259 K/mm3 (150-450); RBC Distribution Width CV 14.1 % (11.6-14.6); RBC Distribution Width SD 49.4 fl (35.1-43.9); Red Blood Count 4.29 M/mm3 (4.6-6.2)
[2022-04-10 13:13] LABS: Differential Indicated MANUAL DIFF
[2022-04-10 13:26] LABS: Prothrombin Time (Protime)PT. 12.5 SECONDS (11.7-14.9)
[2022-04-10 13:28] LABS: ALB/GLOB Ratio 0.8 RATIO (0.9-2.4); AST(SGOT) 16 U/L (15-37); Alanine Aminotransfer ALT/SGPT 34 U/L (16-61); Albumin, Serum 3.3 g/dL (3.2-5.0); Alkaline Phosphatase 191 U/L (45-117); Anion Gap 11 (5-15); BUN 42 mg/dL (7-18); BUN/Creat Ratio 28.6 RATIO (10-20); Calcium,Total 9.6 mg/dL (8.5-10.1); Chloride 95 mmol/L (98-107); Creatinine, Serum 1.47 mg/dL (0.70-1.30); EST Glomerular Filtration Rate 51 mL/min (>60); Est Glom Filt Rate - Afr Amer 62 mL/min (>60); Estimated Creatinine Clearance 47.46 ml/min; Globulin 4.1 g/dL (2.2-4.2); Glucose 222 mg/dL (74-106); Lipase 131 U/L (73-393); Potassium 3.9 mmol/L (3.5-5.1); Protein, Total 7.4 g/dL (6.4-8.2); Sodium Level 134 mmol/L (136-145)
[2022-04-10 13:47] LABS: Partial Thromboplast Time 20.8 Seconds (24.1-36.2)
[2022-04-10 13:56] LABS: Lymphocyte 7 % (19-41); Monocyte 1 % (0-10); Neutrophil-Band 4 % (0-5); Neutrophil-Segmented 88 % (47-70); Platelet Estimate ADEQUATE (ADEQ); Red Cell Morphology NORM C+C NORMAL (NORM C&C); Total Cells Counted 100 (MANUAL DIFF)
--- NOTE | 2022-04-10 14:12 | RAD_ITS ---
STUDY: X-RAY CHEST REASON FOR EXAM: Male, 66 years old. Leukocytosis TECHNIQUE: Single AP portable view of the chest. COMPARISON: Comparison is made with prior study dated 03/08/2022. FINDINGS: A right-sided portacatheter is seen with the tip at the junction of the superior vena cava region. EKG electrodes are seen. Stable mild loss of the right middle lobe. There is no demonstrated pleural abnormality. Normal size heart. Normal mediastinum and akin. Normal visualized pulmonary arteries. Normal visualized aortic arch and descending thoracic aorta. Normal visualized thoracic spine. Normal visualized ribs, clavicles, and shoulders. There is no demonstrated abnormality of the visualized soft tissue structures of the upper abdomen. RAD/Chest 1 View (Portable) IMPRESSION: Stable examination. No acute abnormality is seen. Electronically Signed: Jermain Ho MD at 14:24 EDT ,
[2022-04-10 14:35] LABS: Smudge Cells 2+
[2022-04-10 14:37] LABS: Absolute Lymphocyte Count 4.13 X10^3/uL (0.83-4.51); Absolute Neutrophil Count 54.3 X10^3/uL (2.0-7.7)
[2022-04-10] MEDS: 0.9% Normal Saline 1,000 ML 999 ML IV (14:58)
--- NOTE | 2022-04-10 15:44 | PCM.HP.STD ---
[facility] - General General Date of Admission: 04/10/22 Date of Service: 04/10/22 Chief Complaint: Nausea and vomiting since Sunday, 04/07. Hematemesis started today 4 times. HPI Narrative KATARINA MELGOZA, is a 66 M with history of COPD and NSCLC diagnosed in November 2021 status post right lower lobectomy and started on chemotherapy on March 16 and second chemotherapy 4 days ago on 04/06. Patient is a lifelong smoker quit in November 2021 after diagnosis of lung cancer. His oncologist is Dr. Gibson. After chemotherapy on 04/06, patient started nausea and vomiting next day. Vomiting frequency and severity increased. Patient was vomiting every 15 to 20 minutes yesterday. Today about 4 AM patient started having hematemesis, 4 times mainly dark color coffee-ground. Patient felt dizzy in the morning today along with shortness of breath on exertion. Denies chest pain pressure or tightness. Denies any prior history of GI bleed. In ED, vitals showed low blood pressure 60/45, hypotensive and tachycardic heart rate 113 improved on IV fluid resuscitation. Patient got IV Protonix loading dose and started on Protonix drip. No hypoxia or tachypnea. Patient also has leukocytosis 59,000, ANC 54,000, ALC 4000. He got Granix on last Sunday. Leukocytosis is more than what expected after Granix. Chest x-ray initially reviewed showed no acute abnormality. Patient has a right lower lobectomy. Twelve-lead EKG normal sinus rhythm 93 bpm, nonspecific ST-T changes. Patient has history of coronary artery disease with cardiac stent in 2015 and is on aspirin and Plavix which are held. Patient is further admitted. [facility] Medical History Atherosclerotic heart disease of [place] coronary artery without angina pectoris Bradycardia Cancer of lower lobe of right lung Cardiology follow-up encounter Chronic systolic congestive heart failure CINV (chemotherapy-induced nausea and vomiting) Encounter for chemotherapy management Encounter for education Essential hypertension Former smoker Hiccups History of echocardiogram History of stress test Hyperlipidemia Ischemic cardiomyopathy Kidney stones Non-ST elevated myocardial infarction (non-STEMI) (~11/2015) Old myocardial infarction Preoperative cardiovascular examination Presence of stent in coronary artery (~11/30/15) Tobacco use Wears dentures Home Medications aspirin 81 mg tablet,delayed release 81 mg PO DAILY@0800 [facility] 12/03/15 [History Last Taken 04/09/22] atorvastatin 80 mg tablet 80 mg PO QHS #90 tabs 10/14/21 [Rx Last Taken 04/09/22] clopidogrel 75 mg tablet 75 mg PO DAILY #90 tabs 10/14/21 [Rx Last Taken 04/09/22] lisinopril 10 mg tablet 10 mg PO BID #180 tabs 10/14/21 [Rx Last Taken 04/09/22] metoprolol succinate 50 mg tablet,extended release 24 hr 50 mg PO QDAY #90 tabs 10/14/21 [Rx Last Taken 04/09/22] nitroglycerin 0.4 mg sublingual tablet 0.4 mg sublingual Q5M PRN Chest Pain #25 tabs 10/14/21 [Rx Last Taken Unknown] lidocaine-prilocaine 2.5 %-2.5 % topical cream 1 applic topical ONCE PRN port access 30 days #30 grams 03/06/22 [Rx Last Taken 04/06/22] ondansetron 8 mg disintegrating tablet 8 mg PO Q8H PRN nausea and vomiting #30 tabs 03/06/22 [Rx Last Taken 04/10/22] prochlorperazine maleate 10 mg tablet 10 mg PO Q6H PRN nausea and vomiting #30 tabs 03/06/22 [Rx Last Taken 04/09/22] baclofen 10 mg tablet 10 mg PO TID PRN hiccups #30 tabs 03/30/22 [Rx Last Taken 04/08/22] dexamethasone 4 mg tablet 8 mg PO .COMPLEX #6 tabs 03/30/22 [Rx Last Taken 04/09/22] Allergy/AdvReac Type Severity Reaction Status Date / Time No Known Allergies Allergy Verified 04/06/22 10:25 Family History Grandfather CAD (coronary artery disease) Brother Cancer Surgical History History of bronchoscopy History of coronary artery stent placement Presence of coronary angioplasty implant and graft (~11/30/15) S/P right rotator cuff repair Status post lobectomy of lung Social History Smoking Status: Former smoker quit date: 12/05/21 Tobacco: How many years used: 45 how long ago did patient quit smoking: smoked [id number] years, more when he was working alcohol intake: never substance use type: does not use caffeine: Yes Type: carbonated beverages and coffee Number of servings: 1 what type of physical activity do you participate in: none seatbelt use: always do you feel safe at home: Yes ROS ROS Narrative Constitutional: Reports fatigue and weakness. No fever. HEENT: No ENT bleed. Reports systems reviewed and no addt'l complaints, except as documented Respiratory/Chest: Denies chest pain, shortness of breath with exertion Gastrointestinal: No abdominal pain or pressure. No diarrhea or constipation. Hematemesis but not melena or hematochezia. Genitourinary: Denies burning urination or new urinary tract symptoms. He had burning urination about 3 weeks ago. Dark-colored urine. Musculoskeletal: No joint pain and limited range of motion Neurologic: Denies seizure-like activity. No focal weakness. No history of a stroke skin: No ulcer. No rash Endocrinology: Reports systems reviewed and no addt'l complaints, except as documented Hematologic/Lymphatic: Reports systems reviewed and no addt'l complaints, except as documented Rest 14 ROS are negative except as mentioned in HPI Vital Signs Vital Signs Vital Signs: 04/10/22 11:13 04/10/22 12:58 04/10/22 14:27 Temperature 97.2 F L 98.0 F 97.1 F L Temperature Source Temporal Temporal Temporal Pulse Rate 113 H 82 78 Respiratory Rate 16 27 H 19 H Blood Pressure 60/45 L 82/68 L 101/69 Blood Pressure Mean 50 72 79 Pulse Ox 94 96 95 Oxygen Delivery Method Room Air Room Air Room Air 04/10/22 14:27 04/10/22 15:09 Temperature 97.1 F L 97.2 F L Temperature Source Temporal Temporal Pulse Rate 69 79 Respiratory Rate 19 H 17 Blood Pressure 101/69 95/67 Blood Pressure Mean 79 76 Pulse Ox 96 93 Oxygen Delivery Method Room Air Room Air Weight Weight: 170 lb 12.573 oz Body Mass Index (BMI) 26.7 Physical Exam Narrative General: Alert, Oriented x3, Cooperative HEENT: Atraumatic, PERRLA, EOMI, Normocephalic Oral: Oral mucosa dry. No Gingival or Mucosal Lesions/ Ulcerations Neck: Supple, No JVD, Negative Carotid Bruits Lungs: Air entry diminished in right lung base. No crepitation/rhonchi Cardiovascular: Normal sinus rhythm, BP 93/66. Normal S1, Normal S2, No murmurs Abdomen: Bowel Sounds Present, Soft, Non Tender, Non-Distended : Dark-colored urine. No renal angle tenderness. No suprapubic tenderness. Extremities: No edema, Capillary Refill Less than 3 Seconds Skin: No rashes, No breakdown Musculoskeletal: No Tenderness to Palpation of Joints or Extremities. ROM intact. Neurological: Cranial nerves II-XII grossly intact, DTR 2+/4 and Symmetrical, Neuro grossly intact Psych/Mental Status: Flat affect. Results Lab / Micro Data Result Diagrams: 04/10/22 13:00 04/10/22 13:00 Labs: Laboratory Results - last 24 hr 04/10/22 13:00: WBC 59.0 H*, RBC 4.29 L, Hgb 14.0, Hct 41.2, MCV 96.0 H, MCH 32.6 H, MCHC 34.0, RDW Std Deviation 49.4 H, RDW Coeff of Favio 14.1, Plt Count 259, MPV 11.2, Neut % (Auto) Not Reportable, Absolute Neuts (auto) 54.3 H, Absolute Lymphs (auto) 4.13, Total Counted 100, Neutrophils % (Manual) 88 H, Band Neutrophils % 4, Lymphocytes % (Manual) 7 L, Monocytes % (Manual) 1, Diff Path Review May foll, Smudge Cells 2+, Platelet Estimate ADEQUATE, RBC Morphology NORM C+C 04/10/22 13:00: PT 12.5, INR 1.0, APTT 20.8 L 04/10/22 13:00: Sodium 134 L, Potassium 3.9, Chloride 95 L, Carbon Dioxide 28.0, Anion Gap 11, BUN 42 H, Creatinine 1.47 H, Estim Creat Clear Calc 47.46, Est GFR (MDRD) Af Amer 62, Est GFR (MDRD) Non-Af 51 L, BUN/Creatinine Ratio 28.6 H, Glucose 222 H, Calcium 9.6, Total Bilirubin 1.50 H, AST 16, ALT 34, Alkaline Phosphatase 191 H, Total Protein 7.4, Albumin 3.3, Globulin 4.1, Albumin/Globulin Ratio 0.8 L, Lipase 131 04/10/22 13:00: Blood Type A NEGATIVE, Antibody Screen NEGATIVE Radiology Impression Chest X-Ray 04/10/22 14:12 IMPRESSION: Stable examination. No acute abnormality is seen. Electronically Signed: Jermain Ho MD at 14:24 EDT , Assessment & Plan Assessment/Plan (1) CINV (chemotherapy-induced nausea and vomiting): PLAN: Plan This 66 question gentleman admitted with nausea and vomiting, coffee-ground hematemesis after chemotherapy and severe dehydration associated with hypotension and tachycardia. 1. Hypotension and tachycardia due to intravascular volume depletion due to nausea and vomiting: Patient has IV fluid normal saline bolus in ED. Continue IV fluid. Monitor clinically, intake and output and adjust IV fluids accordingly. H&H may be concentrated 14/14.12%. Patient baseline H&H is between 12 to 13 g%. 2. Chemotherapy-induced nausea and vomiting: Patient is being admitted in PCU. patient monitor. On IV Zofran and Compazine. Patient seen by digital solution architect and was started on scopolamine patch. IV fluid resuscitation. 3. Acute upper GI bleed probably due to chemotherapy possible due to retching Michaela Rhonda tear: Plan for EGD tomorrow AM. H&H every 8 hourly. Patient is on Protonix drip after 80 mg IV bolus and octreotide drip. Zofran switched to Reglan as Zofran can cause constipation. 4. RADHA, prerenal associated with hypotonic hypovolemic hyponatremia and hypochloremia: Patient baseline BUN/creatinine is normal 9/0.85. Admitted with 42/1.47. Sodium and chloride are low. IV fluid normal saline with KCl at 150 mill per hour for 2 L. Monitor kidney function, electrolytes. Serum magnesium and phosphorus level are normal. 5. Leukocytosis mainly left shift exact etiology unclear: Patient had Granix on Sunday but WBC is very high. 6. Coronary artery status post PCI/stenting 2015 and chronic systolic heart failure: Last echo in August 2021 reported EF 45% with trivial MR TR. Twelve-lead EKG shows normal sinus rhythm 93 bpm, nonspecific ST-T changes. At home, patient is on aspirin Plavix, metoprolol, lisinopril and high intensity statin. Hold aspirin and Plavix lisinopril, antihypertensive medications l as patient is hypotensive and hypovolemic and GI bleed. Resume later on patient is euvolemic and blood pressure normal. 7. Recent diagnosis of NSCLC status post right lower lobectomy and chemotherapy: Patient follows Dr. Torres service consulted for leukocytosis and chemotherapy adverse effect. History of COPD. Chest x-ray individually reviewed no acute abnormality. Patient has lifelong history of smoking quit in November 2021 after diagnosis of NSCLC. Patient had possible VATS procedure with right lower lobectomy, hilar lymphadenopathy: As per , lymph nodes were negative for cancer but pleura was positive of cancer cells. 8. VTE prophylaxis: Bilateral SCDs. Living will/advanced directive/end of life care: Patient does have living will or advanced directive. His is power of appliance servicer for health. After discussion of benefits/risks procedures involved with full code, DNR CC arrest and DNR CC, the patient and his opted for full code. Both the patient and his want artificial life support including intubation, tube feed, ventilator and/chest compression, central venous catheter, vasopressor and DC shock if needed Total time spent in [id number] encounter in discussion of advanced directive 16 minutes. Laboratory Results 04/10/22 13:00: WBC 59.0 H*, RBC 4.29 L, Hgb 14.0, Hct 41.2, MCV 96.0 H, MCH 32.6 H, MCHC 34.0, RDW Std Deviation 49.4 H, RDW Coeff of Favio 14.1, Plt Count 259, MPV 11.2, Neut % (Auto) Not Reportable, Absolute Neuts (auto) 54.3 H, Absolute Lymphs (auto) 4.13, Total Counted 100, Neutrophils % (Manual) 88 H, Band Neutrophils % 4, Lymphocytes % (Manual) 7 L, Monocytes % (Manual) 1, Diff Path Review May foll, Smudge Cells 2+, Platelet Estimate ADEQUATE, RBC Morphology NORM C+C 04/10/22 13:00: PT 12.5, INR 1.0, APTT 20.8 L 04/10/22 13:00: Sodium 134 L, Potassium 3.9, Chloride 95 L, Carbon Dioxide 28.0, Anion Gap 11, BUN 42 H, Creatinine 1.47 H, Estim Creat Clear Calc 47.46, Est GFR (MDRD) Af Amer 62, Est GFR (MDRD) Non-Af 51 L, BUN/Creatinine Ratio 28.6 H, Glucose 222 H, Calcium 9.6, Total Bilirubin 1.50 H, AST 16, ALT 34, Alkaline Phosphatase 191 H, Total Protein 7.4, Albumin 3.3, Globulin 4.1, Albumin/Globulin Ratio 0.8 L, Lipase 131 04/10/22 13:00: Blood Type A NEGATIVE, Antibody Screen NEGATIVE 04/10/22 13:00: Phosphorus 4.5, Magnesium 2.1 04/10/22 17:40: Urine Color Pending, Urine Clarity Pending, Urine pH Pending, Ur Specific Douglas Pending, Urine Protein Pending, Urine Glucose (UA) Pending, Urine Ketones Pending, Urine Occult Blood Pending, Urine Nitrite Pending, Urine Bilirubin Pending, Urine Urobilinogen Pending, Ur Leukocyte Esterase Pending, Urine RBC Pending, Urine WBC Pending, Ur Squamous Epith Cells Pending, Urine Bacteria Pending, Urine Mucus Pending Clinical Impression(s) from Imaging Studies Chest X-Ray 04/10/22 14:12 IMPRESSION: Stable examination. No acute abnormality is seen. Charges/Coding Visit Charges Inpatient E&M: 06498 Init Hosp L3 Procedures Hospitalists Procedures: 05366 Advncd Care Plan 30 Min
--- NOTE | 2022-04-10 15:52 | NURSING ---
PCU TONI UGI BLEED, TRANSIENT HYPOTENSION, VOMITING
[2022-04-10 17:02] LABS: Magnesium 2.1 mg/dL (1.6-2.6); Phosphorus 4.5 mg/dL (2.5-4.9)
[2022-04-10] MEDS: Lactated Ringers 1,000 ML 125 ML IV (17:02)
--- NOTE | 2022-04-10 17:38 | CON.PCM_ITS ---
Assessment & Plan Assessment/Plan (1) Acute upper GI bleed: PLAN: Upper GI bleed in the setting of acute nausea vomiting. Differential d iagnosis does include a Michaela-Mcclain tear, severe erosive esophagitis, peptic ulcer disease, angiodysplasia. PPI drip and octreotide drip for his acute nausea vomiting. He will undergo an upper endoscopy for evaluation of his upper GI tract. He was explained alternatives, risk, benefits including not withstanding bleeding, infection, sepsis, perforation, need for emergent surgery . He will have an ASA of 3. (2) Chemotherapy induced nausea and vomiting: PLAN: I will give him a scopolamine patch and I requested that his Zofran be switched to Reglan as it can cause constipation. His is at the bedside and agrees with this plan. HPI Consult Data Date of Consult: 04/10/22 HPI Narrative Reason for Consultation: hematemesis HPI Narrative: KATARINA MELGOZA, is a 66 M who presents at the request of oncology with intractable nausea vomiting. He has a recent new diagnosis non-small cell lung cancer earlier this year status post resection right lower lobe per spouse.? Chemotherapy started March 16 had subsequent mild nausea and vomiting.? His last chemo repeat it was on 20 for 4 days ago.? He was doing well until 2 days ago.? Ever since yesterday vomiting throughout the day.? This morning had coffee- ground emesis 3-4 episodes.? Mild lightheaded symptoms.? He is on aspirin and Plavix last dose taken yesterday.? Last bowel movement 2 days ago.? Mild epigastric abdominal pain.? Oncologist Dr. Del Rio.? He did take a Zofran this morning, mild nausea at this time.? Denies any congestive heart failure history.? History of heart attack with 2 stents. He is on aspirin and Plavix. I was asked to see him due to hematemesis. EGD received IV fluids and IV Zofran. He is feeling a little bit better. She denies any chest pain or shortness of breath. All other 16 review of systems are negative except as per positive mentioned HPI . [facility] Medical History Atherosclerotic heart disease of [place] coronary artery without angina pectoris Bradycardia Cancer of lower lobe of right lung Cardiology follow-up encounter Chronic systolic congestive heart failure CINV (chemotherapy-induced nausea and vomiting) Encounter for chemotherapy management Encounter for education Essential hypertension Former smoker Hiccups History of echocardiogram History of stress test Hyperlipidemia Ischemic cardiomyopathy Kidney stones Non-ST elevated myocardial infarction (non-STEMI) (~11/2015) Old myocardial infarction Preoperative cardiovascular examination Presence of stent in coronary artery (~11/30/15) Tobacco use Wears dentures Home Medications aspirin 81 mg tablet,delayed release 81 mg PO DAILY@0800 [facility] 12/03/15 [History Last Taken 04/09/22] atorvastatin 80 mg tablet 80 mg PO QHS #90 tabs 10/14/21 [Rx Last Taken 03/14 04/03] clopidogrel 75 mg tablet 75 mg PO DAILY #90 tabs 10/14/21 [Rx Last Taken 04/09/22] lisinopril 10 mg tablet 10 mg PO BID #180 tabs 10/14/21 [Rx Last Taken 04/09/22] metoprolol succinate 50 mg tablet,extended release 24 hr 50 mg PO QDAY #90 tabs 10/14/21 [Rx Last Taken 04/09/22] nitroglycerin 0.4 mg sublingual tablet 0.4 mg sublingual Q5M PRN Chest Pain #25 tabs 10/14/21 [Rx Last Taken Unknown] lidocaine-prilocaine 2.5 %-2.5 % topical cream 1 applic topical ONCE PRN port access 30 days #30 grams 03/06/22 [Rx Last Taken 04/06/22] ondansetron 8 mg disintegrating tablet 8 mg PO Q8H PRN nausea and vomiting #30 tabs 03/06/22 [Rx Last Taken 04/10/22] prochlorperazine maleate 10 mg tablet 10 mg PO Q6H PRN nausea and vomiting #30 tabs 03/06/22 [Rx Last Taken 04/09/22] baclofen 10 mg tablet 10 mg PO TID PRN hiccups #30 tabs 03/30/22 [Rx Last Taken 04/08/22] dexamethasone 4 mg tablet 8 mg PO .COMPLEX #6 tabs 03/30/22 [Rx Last Taken 04/09/22] Allergy/AdvReac Type Severity Reaction Status Date / Time No Known Allergies Allergy Verified 04/06/22 10:25 Family History Grandfather CAD (coronary artery disease) Brother Cancer Surgical History History of bronchoscopy History of coronary artery stent placement Presence of coronary angioplasty implant and graft (~11/30/15) S/P right rotator cuff repair Status post lobectomy of lung Social History Smoking Status: Former smoker quit date: 12/05/21 Tobacco: How many years used: 45 how long ago did patient quit smoking: smoked [id number] years, more when he was working alcohol intake: never substance use type: does not use caffeine: Yes Type: carbonated beverages and coffee Number of servings: 1 what type of physical activity do you participate in: none seatbelt use: always do you feel safe at home: Yes ROS ROS Narrative 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, 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 without 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 Constitutional Constitutional: Reports systems reviewed and no addt'l complaints, except as documented; Denies fatigue, fever(s) or weight loss Eyes Eyes: Reports systems reviewed and no addt'l complaints, except as documented; Denies change in vision ENT HEENT: Reports systems reviewed and no addt'l complaints, except as documented; Denies headache(s) or mouth lesions Cardiovascular Cardiovascular: Reports systems reviewed and no addt'l complaints, except as documented; Denies chest pain with activity or leg edema Respiratory/Chest Respiratory/Chest: Reports systems reviewed and no addt'l complaints, except as documented and dyspnea on exertion; Denies cough, hemoptysis or wheezing Gastrointestinal Gastrointestinal: Reports systems reviewed and no addt'l complaints, except as documented; Denies change in bowel habits, hematochezia or melena Genitourinary Genitourinary: Reports systems reviewed and no addt'l complaints, except as documented; Denies hematuria Musculoskeletal Musculoskeletal: Reports systems reviewed and no addt'l complaints, except as documented; Denies back pain Integumentary Integumentary: Reports systems reviewed and no addt'l complaints, except as documented; Denies rash Neurologic Neurologic: Reports systems reviewed and no addt'l complaints, except as documented; Denies focal weakness or paresthesias Psychiatric Psychiatric: Reports systems reviewed and no addt'l complaints, except as documented Endocrine Endocrinology: Reports systems reviewed and no addt'l complaints, except as documented Hematologic/Lymphatic Hematologic/Lymphatic: Reports systems reviewed and no addt'l complaints, except as documented; Denies easy bleeding, easy bruising or lymphadenopathy Allergic/Immunologic Allergic/Immunologic: Reports systems reviewed and no addt'l complaints, except as documented Physical Exam Narrative ECOG 0-1 Const alert, oriented x3 and no apparent distress General Appearance: comfortable HEENT normocephalic Mouth: oral and palatal mucosa normal, No lesions and No thrush Eyes General Eye: normal appearance of both eyes Neck no lymphadenopathy, supple and no JVD Lymph Lymphatic: no lymphadenopathy noted Chest Chest: symmetrical chest wall rise and vascular access Resp Auscultation: diminished lung sounds bilateral and diffuse Cardio regular rate and regular rhythm Jugular Venous Distention: Negative for JVD GI soft to palpation, non-tender and non-distended; Negative for hepatosplenomegaly no CVA tenderness Back/Spine no thoracic nor lumbar tenderness Extremity no clubbing, cyanosis or edema Skin no rashes or lesions noted Neuro oriented x3, CN's II-XII intact bilaterally, moves all extremities and no focal motor deficits Speech: speech normal Gait (Neuro): normal gait Psych mental status grossly normal Lab / Micro Data Result Diagrams: 04/10/22 13:00 04/10/22 13:00 Labs: Laboratory Results - last 24 hr 04/10/22 13:00: WBC 59.0 H*, RBC 4.29 L, Hgb 14.0, Hct 41.2, MCV 96.0 H, MCH 32.6 H, MCHC 34.0, RDW Std Deviation 49.4 H, RDW Coeff of Favio 14.1, Plt Count 259, MPV 11.2, Neut % (Auto) Not Reportable, Absolute Neuts (auto) 54.3 H, Absolute Lymphs (auto) 4.13, Total Counted 100, Neutrophils % (Manual) 88 H, Band Neutrophils % 4, Lymphocytes % (Manual) 7 L, Monocytes % (Manual) 1, Diff Path Review May foll, Smudge Cells 2+, Platelet Estimate ADEQUATE, RBC Morphology NORM C+C 04/10/22 13:00: PT 12.5, INR 1.0, APTT 20.8 L 04/10/22 13:00: Sodium 134 L, Potassium 3.9, Chloride 95 L, Carbon Dioxide 28.0, Anion Gap 11, BUN 42 H, Creatinine 1.47 H, Estim Creat Clear Calc 47.46, Est GFR (MDRD) Af Amer 62, Est GFR (MDRD) Non-Af 51 L, BUN/Creatinine Ratio 28.6 H, Glucose 222 H, Calcium 9.6, Total Bilirubin 1.50 H, AST 16, ALT 34, Alkaline Phosphatase 191 H, Total Protein 7.4, Albumin 3.3, Globulin 4.1, Albumin/Globulin Ratio 0.8 L, Lipase 131 04/10/22 13:00: Blood Type A NEGATIVE, Antibody Screen NEGATIVE 04/10/22 13:00: Phosphorus 4.5, Magnesium 2.1 Radiology Impression Chest X-Ray 04/10/22 14:12 IMPRESSION: Stable examination. No acute abnormality is seen. Electronically Signed: Jermain Ho MD at 14:24 EDT , Charges/Coding Visit Charges Inpatient E&M: 04667 Init Hosp L3
[2022-04-10 17:49] LABS: Bacteria 0 SEEN /hpf (None Seen); Squamous Epithelial Cells - UA 0 SEEN /hpf (0-5)
[2022-04-10 18:12] LABS: Color, Urine Yellow (Yellow); Glucose, Dipstick 50 mg/dl (Normal); Ketone-Dipstick 5 mg/dl (Negative); Leukocyte Esterase-Dipstick Negative /ul (Negative); Nitrite-Dipstick Negative (Negative); Occult Blood-Urine 25 /ul (Negative); Protein-Dipstick 30 mg/dl (Negative); Urine Bilirubin Dipstick Negative (Negative); Urine Clarity Clear (Clear); Urine Urobilinogen Normal (Normal)
[2022-04-10] MEDS: Scopolamine 1mg/72hr Patch 1 PATCH TD (18:14)
[2022-04-10 18:35] LABS: Hyaline Cast 5-10 SEEN /lpf (0-5); Red Blood Cells-Urine 0-5 SEEN /hpf (0-5); White Blood Cells 0-5 SEEN /hpf (0-5)
[2022-04-10 18:36] LABS: Mucous, Urine 2+ /hpf (<or=2+)
[2022-04-10 18:53] LABS: Hematocrit 36.9 % (40-54); Hemoglobin 12.5 g/dL (13.0-16.5)
[2022-04-10 23:56] LABS: Hematocrit 35.3 % (40-54); Hemoglobin 11.9 g/dL (13.0-16.5)
[2022-04-11] VITALS (14 sets, daily range): BP systolic 107–133; BP diastolic 64–77; PULSE 61–76; RESP 16–18; TEMP 36.3–37.3; O2SAT 93–97; BMI 26.6
--- NOTE | 2022-04-11 04:34 | EKG12_ITS ---
Test Reason : AM EKG Blood Pressure : / mmHG Vent. Rate : 068 BPM Atrial Rate : 068 BPM P-R Int : 126 ms QRS Dur : 092 ms QT Int : 404 ms P-R-T Axes : 066 053 078 degrees QTc Int : 429 ms Normal sinus rhythm with sinus arrhythmia Normal ECG Confirmed by JENNY TRACEY, FRANCIS ([id number]), associate entertainment editor RAYMON OWENS ([id number]) on 04/12/2022 8:26:49 AM Referred By: Confirmed By:FRANCIS ALVARADO MD
[2022-04-11 04:59] LABS: Hemoglobin 11.4 g/dL (13.0-16.5); Mean Corp Hgb Conc 33.5 g/dL (32-36); Mean Corpuscular Hgb 32.8 pg (27.0-32.0); Mean Corpuscular Volume 97.7 fL (80-94); Mean Platelet Vol. 11.2 fl (6.2-12.0); POSITIVE COUNT YES; POSITIVE DIFFERENTIAL YES; POSITIVE MORPHOLOGY YES; Platelet Count 182 K/mm3 (150-450); RBC Distribution Width SD 49.5 fl (35.1-43.9); Red Blood Count 3.48 M/mm3 (4.6-6.2)
[2022-04-11 05:04] LABS: International Normalized Ratio 1.1; Prothrombin Time (Protime)PT. 13.9 SECONDS (11.7-14.9)
[2022-04-11 05:05] LABS: Partial Thromboplast Time 23.5 Seconds (24.1-36.2)
[2022-04-11 05:07] LABS: White Blood Count 31.2 K/mm3 (4.4-11.0)
[2022-04-11 05:08] LABS: Differential Indicated MANUAL DIFF
[2022-04-11 05:25] LABS: Total Cells Counted 100 (MANUAL DIFF)
[2022-04-11 05:27] LABS: ALB/GLOB Ratio 0.8 RATIO (0.9-2.4); AST(SGOT) 13 U/L (15-37); Alanine Aminotransfer ALT/SGPT 26 U/L (16-61); Albumin, Serum 2.6 g/dL (3.2-5.0); Alkaline Phosphatase 151 U/L (45-117); Anion Gap 4 (5-15); BUN 33 mg/dL (7-18); BUN/Creat Ratio 39.6 RATIO (10-20); Bilirubin, Direct 0.24 mg/dL (0.00-0.30); Calcium,Total 8.2 mg/dL (8.5-10.1); Chloride 105 mmol/L (98-107); Creatinine, Serum 0.83 mg/dL (0.70-1.30); EST Glomerular Filtration Rate 99 mL/min (>60); Est Glom Filt Rate - Afr Amer 119 mL/min (>60); Estimated Creatinine Clearance 84.06 ml/min; Globulin 3.4 g/dL (2.2-4.2); Glucose 130 mg/dL (74-106); Lymphocyte 12 % (19-41); Metamyelocyte 2 % (0-1); Myelocyte 1 % (0-0); Neutrophil-Band 2 % (0-5); Neutrophil-Segmented 83 % (47-70); Platelet Estimate ADEQUATE (ADEQ); Potassium 4.9 mmol/L (3.5-5.1); Red Cell Morphology NORM C+C NORMAL (NORM C&C); Sodium Level 136 mmol/L (136-145)
[2022-04-11 05:28] LABS: Absolute Lymphocyte Count 3.74 X10^3/uL (0.83-4.51); Absolute Neutrophil Count 26.5 X10^3/uL (2.0-7.7); Lymphocyte # 3.74 X10^3/ul (0.83-4.51)
--- NOTE | 2022-04-11 08:59 | ONC.CONSULT ---
Assessment & Plan Assessment/Plan (1) Cancer of lower lobe of right lung: Status: Acute Code(s): C34.31 - Malignant neoplasm of lower lobe, right bronchus or lung Plan: 65-year-old male with non-small cell lung cancer (adenocarcinoma with focal? squamous differentiation). Pathologic stage? (T2a, N0, M0) status post right lower lobectomy January 25, 2022. And adverse prognostic factor is the presence of visceral pleural invasion. Started systemic adjuvant therapy with carboplatin Taxol March 16, 2022, received 2 cycles to date. Treatment has been complicated with protracted delayed nausea and vomiting. Received cycle 2 of adjuvant therapy April 05, 2022 and despite adjustment of his antiemetics and addition of oral steroids days 2 through 4, starting around day 5 had protracted nausea and vomiting presented to the emergency room with coffee grounds emesis. Depending on findings from EGD further adjustments of antiemetics will be done to allow completion of full course of adjuvant chemotherapy (plan total 4 cycles) (2) Leukocytosis: Status: Acute Code(s): D72.829 - Elevated white blood cell count, unspecified Plan: Patient did receive growth factor on day 2 of the cycle (April 06) which is the main cause for his neutrophilic leukocytosis in addition to stress reaction. No specific therapy indicated (3) Acute upper GI bleed: Status: Acute Code(s): K92.2 - Gastrointestinal hemorrhage, unspecified Plan: Defer to GI, EGD scheduled April 11, 2022. (4) Chemotherapy induced nausea and vomiting: Status: Acute Code(s): R11.2 - Nausea with vomiting, unspecified; T45.1X5A - Adverse effect of antineoplastic and immunosuppressive drugs, initial encounter Plan: Further adjustments of antiemetics has been done by GI and patient had no further episodes of nausea or vomiting. HPI Consult Data Date of Service:: 04/11/22 PCP / Referring Provider: Dr. George Cutler MD Attending: Dr. Jonatan Keller MD Chief Complaint Chief Complaint: Hematemesis History of Present Illness History of Present Illness: 66-year-old male, smoker until November 2021 with a newly diagnosed non-small cell lung cancer. January 26, 2022 robotic assisted right lower lobectomy. March 16, 2022 adjuvant carboplatin Taxol C1 had a protracted delayed nausea and hiccups stage 3?10 April 06, 2022 adjuvant carboplatin Taxol C2 despite adjustment of his anti-emetics and addition of dexamethasone for delayed nausea and vomiting days 2?4, He experienced protracted nausea and vomiting and on April 10 had 3-4 episodes of coffee-ground emesis and was admitted for further management. Advanced Directives Power of Manager Clinical Applications: Yes Living Will: Yes [facility] Medical History Atherosclerotic heart disease of [place] coronary artery without angina pectoris Bradycardia Cancer of lower lobe of right lung Cardiology follow-up encounter Chronic systolic congestive heart failure CINV (chemotherapy-induced nausea and vomiting) Encounter for chemotherapy management Encounter for education Essential hypertension Former smoker Hiccups History of echocardiogram History of stress test Hyperlipidemia Ischemic cardiomyopathy Kidney stones Non-ST elevated myocardial infarction (non-STEMI) (~11/2015) Old myocardial infarction Preoperative cardiovascular examination Presence of stent in coronary artery (~11/30/15) Tobacco use Wears dentures Home Medications aspirin 81 mg tablet,delayed release 81 mg PO DAILY@0800 [facility] 12/03/15 [History Last Taken 04/09/22] atorvastatin 80 mg tablet 80 mg PO QHS #90 tabs 10/14/21 [Rx Last Taken 04/09/22] clopidogrel 75 mg tablet 75 mg PO DAILY #90 tabs 10/14/21 [Rx Last Taken 04/09/22] lisinopril 10 mg tablet 10 mg PO BID #180 tabs 10/14/21 [Rx Last Taken 04/09/22] metoprolol succinate 50 mg tablet,extended release 24 hr 50 mg PO QDAY #90 tabs 10/14/21 [Rx Last Taken 04/09/22] nitroglycerin 0.4 mg sublingual tablet 0.4 mg sublingual Q5M PRN Chest Pain #25 tabs 10/14/21 [Rx Last Taken Unknown] lidocaine-prilocaine 2.5 %-2.5 % topical cream 1 applic topical ONCE PRN port access 30 days #30 grams 03/06/22 [Rx Last Taken 04/06/22] ondansetron 8 mg disintegrating tablet 8 mg PO Q8H PRN nausea and vomiting #30 tabs 03/06/22 [Rx Last Taken 04/10/22] prochlorperazine maleate 10 mg tablet 10 mg PO Q6H PRN nausea and vomiting #30 tabs 03/06/22 [Rx Last Taken 04/09/22] baclofen 10 mg tablet 10 mg PO TID PRN hiccups #30 tabs 03/30/22 [Rx Last Taken 04/08/22] dexamethasone 4 mg tablet 8 mg PO .COMPLEX #6 tabs 03/30/22 [Rx Last Taken 04/09/22] Allergy/AdvReac Type Severity Reaction Status Date / Time No Known Allergies Allergy Verified 04/06/22 10:25 Family History Grandfather CAD (coronary artery disease) Brother Cancer Surgical History History of bronchoscopy History of coronary artery stent placement Presence of coronary angioplasty implant and graft (~11/30/15) S/P right rotator cuff repair Status post lobectomy of lung Social History Smoking Status: Former smoker quit date: 12/05/21 Tobacco: How many years used: 45 how long ago did patient quit smoking: smoked [id number] years, more when he was working alcohol intake: never substance use type: does not use caffeine: Yes Type: carbonated beverages and coffee Number of servings: 1 what type of physical activity do you participate in: none seatbelt use: always do you feel safe at home: Yes ROS Constitutional Constitutional: Denies chills, fatigue, fever(s) or weight loss ENT HEENT: Denies dysphagia Cardiovascular Cardiovascular: Denies chest pain, dyspnea or edema Respiratory/Chest Respiratory/Chest: Denies cough or hemoptysis Gastrointestinal Gastrointestinal: Reports other Details: Nausea and vomiting has settled since admission ; Denies abdominal pain, change in bowel habits, coffee ground emesis, hematochezia, melena, nausea or vomiting Genitourinary Genitourinary: Denies hematuria Musculoskeletal Musculoskeletal: Denies back pain Integumentary Integumentary: Denies rash Neurologic Neurologic: Denies focal weakness Psychiatric Psychiatric: Denies anxiety Hematologic/Lymphatic Hematologic/Lymphatic: Denies easy bleeding or easy bruising Physical Exam Narrative ECOG 0-1 Const alert, oriented x3 and no apparent distress General Appearance: cooperative and comfortable HEENT normocephalic Head and Scalp: atraumatic Eyes no scleral icterus Neck no lymphadenopathy and no JVD Resp normal respiratory effort and clear to auscultation bilaterally Resp Narrative: Vascular access present Cardio regular rate and regular rhythm GI soft to palpation and non-tender Extremity no clubbing, cyanosis or edema Skin no rashes or lesions noted Neuro CN's II-XII intact bilaterally, moves all extremities and no focal motor deficits Psych mental status grossly normal Vital Signs Temperature 97.3 F L 04/11/22 05:00 Temperature Source Temporal 04/11/22 05:00 Pulse Rate 70 04/11/22 06:59 Pulse Strength Normal (2+) 04/11/22 08:25 Respiratory Rate 16 04/11/22 05:00 Respiratory Effort Non-Labored 04/11/22 08:15 Respiratory Depth Normal 04/11/22 08:15 Respiratory Pattern Normal 04/11/22 08:15 Blood Pressure 124/76 H 04/11/22 05:00 Blood Pressure Mean 92 04/11/22 05:00 Blood Pressure Source Monitor 04/11/22 05:00 Blood Pressure Position Semi-Fowlers 04/11/22 05:00 Blood Pressure Location Left Arm 04/11/22 05:00 Pulse Ox 94 04/11/22 07:14 Oxygen Delivery Method Room Air 04/11/22 08:15 Laboratory Results - last 24 hr 04/10/22 13:00: WBC 59.0 H*, RBC 4.29 L, Hgb 14.0, Hct 41.2, MCV 96.0 H, MCH 32.6 H, MCHC 34.0, RDW Std Deviation 49.4 H, RDW Coeff of Favio 14.1, Plt Count 259, MPV 11.2, Neut % (Auto) Not Reportable, Absolute Neuts (auto) 54.3 H, Absolute Lymphs (auto) 4.13, Total Counted 100, Neutrophils % (Manual) 88 H, Band Neutrophils % 4, Lymphocytes % (Manual) 7 L, Monocytes % (Manual) 1, Diff Path Review May foll, Smudge Cells 2+, Platelet Estimate ADEQUATE, RBC Morphology NORM C+C 04/10/22 13:00: PT 12.5, INR 1.0, APTT 20.8 L 04/10/22 13:00: Sodium 134 L, Potassium 3.9, Chloride 95 L, Carbon Dioxide 28.0, Anion Gap 11, BUN 42 H, Creatinine 1.47 H, Estim Creat Clear Calc 47.46, Est GFR (MDRD) Af Amer 62, Est GFR (MDRD) Non-Af 51 L, BUN/Creatinine Ratio 28.6 H, Glucose 222 H, Calcium 9.6, Total Bilirubin 1.50 H, AST 16, ALT 34, Alkaline Phosphatase 191 H, Total Protein 7.4, Albumin 3.3, Globulin 4.1, Albumin/Globulin Ratio 0.8 L, Lipase 131 04/10/22 13:00: Blood Type A NEGATIVE, Antibody Screen NEGATIVE 04/10/22 13:00: Phosphorus 4.5, Magnesium 2.1 04/10/22 17:40: Urine Color Yellow, Urine Clarity Clear, Urine pH 5.0, Ur Specific [place] 1.020, Urine Protein 30 H, Urine Glucose (UA) 50 H, Urine Ketones 5 H, Urine Occult Blood 25 H, Urine Nitrite Negative, Urine Bilirubin Negative, Urine Urobilinogen Normal, Ur Leukocyte Esterase Negative, Urine RBC 0-5 SEEN, Urine WBC 0-5 SEEN, Ur Squamous Epith Cells 0 SEEN, Urine Bacteria 0 SEEN, Hyaline Casts 5-10 SEEN, Urine Mucus 2+ 04/10/22 18:40: Hgb 12.5 L, Hct 36.9 L 04/10/22 23:50: Hgb 11.9 L, Hct 35.3 L 04/11/22 04:33: WBC 31.2 H*, RBC 3.48 L, Hgb 11.4 L, Hct 34.0 L, MCV 97.7 H, MCH 32.8 H, MCHC 33.5, RDW Std Deviation 49.5 H, RDW Coeff of Favio 14.0, Plt Count 182, MPV 11.2, Neut % (Auto) Not Reportable, Absolute Neuts (auto) 26.5 H, Absolute Lymphs (auto) 3.74, Total Counted 100, Neutrophils % (Manual) 83 H, Band Neutrophils % 2, Lymphocytes % (Manual) 12 L, Metamyelocytes % 2 H, Myelocytes % 1 H, Diff Path Review May , Platelet Estimate ADEQUATE, RBC Morphology NORM C+C 04/11/22 04:33: Sodium 136, Potassium 4.9, Chloride 105, Carbon Dioxide 27.0, Anion Gap 4 L, BUN 33 H, Creatinine 0.83, Estim Creat Clear Calc 84.06, Est GFR (MDRD) Af Amer 119, Est GFR (MDRD) Non-Af 99, BUN/Creatinine Ratio 39.6 H, Glucose 130 H, Calcium 8.2 L, Total Bilirubin 1.10 H, Direct Bilirubin 0.24, AST 13 L, ALT 26, Alkaline Phosphatase 151 H, Total Protein 6.0 L, Albumin 2.6 L, Globulin 3.4, Albumin/Globulin Ratio 0.8 L 04/11/22 04:48: PT 13.9, INR 1.1, APTT 23.5 L 04/11/22 04:48: Total Bilirubin Cancelled, Direct Bilirubin Cancelled, AST Cancelled, ALT Cancelled, Alkaline Phosphatase Cancelled, Total Protein Cancelled, Albumin Cancelled, Globulin Cancelled Diagnostic Data Chest X-Ray 04/10/22 14:12 IMPRESSION: Stable examination. No acute abnormality is seen. Electronically Signed: Jermain Ho MD at 14:24 EDT ,
--- NOTE | 2022-04-11 09:24 | CASEMGMT ---
AIDEE met with patient and his . Introduced self and role at [facility]. AIDEE explained that [facility] does not have a copy of patient's Healthcare Power of Marker Assembler or Healthcare Living Will on file at [facility]. AIDEE asked if someone could bring in a copy so they can be put on file at [facility]. Patient's said she can do that later today. SW thanked both patient and his . Natalie FERRER
--- NOTE | 2022-04-11 11:45 | CASEMGMT ---
RN CM Face to Face with patient for initial transition planning/care coordination assessment. RN CM introduced self and role at [facility]. Patient lying in bed, alert and oriented, at bedside. Patient willing to participate in assessment and is able to answer all questions appropriately. Care providers, pharmacy, and demographics verified. Patient wishes to discharge home, denies need for home health at this time. Patient states he has no further needs or concerns at this time. CM to follow for discharge planning needs that may arise. PCP: Omayra Specialists: Arthur, oncologist; Hazel Adkins, pulmonologists; Clare, appliance repair technician Preferred Pharmacy: [facility]; [facility] retail at discharge. Insurance: [employer] [place] Prescription Benefit: yes Living Will/HPOA: yes, Leslye Estrada LNOK: Living Arrangements: Patient lives with in a single story home with 2 steps and railing to enter the home. Transportation: self, DME/HHC: Patient states he has a pulse ox at home. No previous HHC or SNF. Disposition Plan: Patient to discharge home with family support and follow-up plans in place. Cathi ALVARENGA, RN, CM
[2022-04-11 13:22] LABS: Pathologist Review Reviewed
--- NOTE | 2022-04-11 13:22 | PN.HOSP_ITS ---
Subjective Subjective Follow-up on acute GI bleed: Patient was seen and examined. No more bleeding seen this hospital stay. Nausea has also improved. Denied any fever or chills. Objective Data Objective Data Vital Signs: Vital Signs Temp Pulse Resp BP Pulse Ox O2 Del Method 99.2 F H 72 16 109/64 94 Room Air 04/11/22 09:49 04/11/22 09:49 04/11/22 09:49 04/11/22 09:49 04/11/22 09:49 04/11/22 09:49 Oxygen Delivery Method Room Air Weight: 77.111 kg Body Mass Index (BMI) 26.6 Intake & Output: Intake and Output for Last 24 Hours 04/09/22 04/10/22 04/11/22 23:59 23:59 23:59 Intake Total 2266.25 / 2266.25 2230 / 2230 Balance 2266.25 / 2266.25 2230 / 2230 Medical Nutrition Assessment Dietitian: Malnutrition Criteria Met Start: 04/11/22 0 9:34 Freq: Status: Active Protocol: Document 04/11/22 09:48 AG (Rec: 04/11/22 09:49 AG [id number]) Nutrition Malnutrition Evidence of Malnutrition Exists Yes Malnutrition (severe): Chronic Evidenced By Suboptimal Energy Intake ( Severe),Weight Loss (Severe) Clinical Problem Chronic Disease or Condition Related Malnutrition Etiology severe, chronic malnutrition related to inadequate energy intake w/ increased energy needs d/t cancer Signs/Symptoms as evidenced by unintentional wt loss of 18#/10% x 4 months; estimated PO intake meeting < 75% of estimated energy needs x 4 months Status Active Problem Recommendation Dietitian Recommendations/Changes advance diet as tolerated to regular; ensure w/ medpass when PO diet advanced given signs/symptoms of malnutrition Lab / Micro Data Result Diagrams: 04/11/22 04:33 04/11/22 04:33 Labs: Laboratory Results - last 24 hr 04/10/22 13:00: WBC 59.0 H*, RBC 4.29 L, Hgb 14.0, Hct 41.2, MCV 96.0 H, MCH 32.6 H, MCHC 34.0, RDW Std Deviation 49.4 H, RDW Coeff of Favio 14.1, Plt Count 259, MPV 11.2, Neut % (Auto) Not Reportable, Absolute Neuts (auto) 54.3 H, Absolute Lymphs (auto) 4.13, Total Counted 100, Neutrophils % (Manual) 88 H, Band Neutrophils % 4, Lymphocytes % (Manual) 7 L, Monocytes % (Manual) 1, Diff Path Review May foll, Smudge Cells 2+, Platelet Estimate ADEQUATE, RBC Morphology NORM C+C 04/10/22 13:00: PT 12.5, INR 1.0, APTT 20.8 L 04/10/22 13:00: Sodium 134 L, Potassium 3.9, Chloride 95 L, Carbon Dioxide 28.0, Anion Gap 11, BUN 42 H, Creatinine 1.47 H, Estim Creat Clear Calc 47.46, Est GFR (MDRD) Af Amer 62, Est GFR (MDRD) Non-Af 51 L, BUN/Creatinine Ratio 28.6 H, Glucose 222 H, Calcium 9.6, Total Bilirubin 1.50 H, AST 16, ALT 34, Alkaline Phosphatase 191 H, Total Protein 7.4, Albumin 3.3, Globulin 4.1, Albumin/Globulin Ratio 0.8 L, Lipase 131 04/10/22 13:00: Blood Type A NEGATIVE, Antibody Screen NEGATIVE 04/10/22 13:00: Phosphorus 4.5, Magnesium 2.1 04/10/22 17:40: Urine Color Yellow, Urine Clarity Clear, Urine pH 5.0, Ur Specific [place] 1.020, Urine Protein 30 H, Urine Glucose (UA) 50 H, Urine Ketones 5 H, Urine Occult Blood 25 H, Urine Nitrite Negative, Urine Bilirubin Negative, Urine Urobilinogen Normal, Ur Leukocyte Esterase Negative, Urine RBC 0-5 SEEN, Urine WBC 0-5 SEEN, Ur Squamous Epith Cells 0 SEEN, Urine Bacteria 0 SEEN, Hyaline Casts 5-10 SEEN, Urine Mucus 2+ 04/10/22 18:40: Hgb 12.5 L, Hct 36.9 L 04/10/22 23:50: Hgb 11.9 L, Hct 35.3 L 04/11/22 04:33: WBC 31.2 H*, RBC 3.48 L, Hgb 11.4 L, Hct 34.0 L, MCV 97.7 H, MCH 32.8 H, MCHC 33.5, RDW Std Deviation 49.5 H, RDW Coeff of Favio 14.0, Plt Count 182, MPV 11.2, Neut % (Auto) Not Reportable, Absolute Neuts (auto) 26.5 H, Absolute Lymphs (auto) 3.74, Total Counted 100, Neutrophils % (Manual) 83 H, Band Neutrophils % 2, Lymphocytes % (Manual) 12 L, Metamyelocytes % 2 H, Myelocytes % 1 H, Diff Path Review May foll, Platelet Estimate ADEQUATE, RBC Morphology NORM C+C 04/11/22 04:33: Sodium 136, Potassium 4.9, Chloride 105, Carbon Dioxide 27.0, Anion Gap 4 L, BUN 33 H, Creatinine 0.83, Estim Creat Clear Calc 84.06, Est GFR (MDRD) Af Amer 119, Est GFR (MDRD) Non-Af 99, BUN/Creatinine Ratio 39.6 H, Glucose 130 H, Calcium 8.2 L, Total Bilirubin 1.10 H, Direct Bilirubin 0.24, AST 13 L, ALT 26, Alkaline Phosphatase 151 H, Total Protein 6.0 L, Albumin 2.6 L, Globulin 3.4, Albumin/Globulin Ratio 0.8 L 04/11/22 04:48: PT 13.9, INR 1.1, APTT 23.5 L 04/11/22 04:48: Total Bilirubin Cancelled, Direct Bilirubin Cancelled, AST Cancelled, ALT Cancelled, Alkaline Phosphatase Cancelled, Total Protein Cancelled, Albumin Cancelled, Globulin Cancelled Radiography Diagnostic Testing: Radiology Impression Chest X-Ray 04/10/22 14:12 IMPRESSION: Stable examination. No acute abnormality is seen. Electronically Signed: Jermain Ho MD at 14:24 EDT , Physical Exam Narrative Physical exam: General: Alert, Oriented x3, Cooperative, No apparent distress HEENT: Atraumatic Oral: Moist Mucosa Neck: Supple Lungs: Clear to auscultation Cardiovascular: HS I+II, regular, no murmurs Abdomen: Bowel Sounds Present, Soft, Non Tender Extremities: No edema Skin: No rashes, No breakdown Neurological: Grossly intact Psych/Mental Status: Appropriate Assessment & Plan Assessment/Plan (1) Acute upper GI bleed: (2) Chemotherapy induced nausea and vomiting: (3) RADHA (acute kidney injury): (4) Transient hypotension: PLAN: Plan 1. Acute upper GI bleed likely related to Michaela-Mcclain/esophagitis/peptic ulcer disease Patient presented with chemotherapy-induced nausea and vomiting Going for EGD today Continue octreotide drip as well as pantoprazole drip 2. Chemotherapy induced nausea and vomiting, improved, continue scopolamine patch 3. Acute kidney injury, prerenal secondary to #1, resolved Patient presented with hypotension and tachycardia on admission, resolved Admitted with creatinine 1.47, current creatinine 0.83 Continue to trend 4. Leukocytosis, improved, in the setting of recent Granix dosing postchemotherapy for non-small cell lung cancer Admitting WBC count was 59, currently 31.2 Continue to trend CBCD 5. Non-small cell lung cancer status post right lower lobectomy and chemotherapy, oncology following 6. 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 DVT prophylaxis?SCDs Charges/Coding Visit Charges Inpatient E&M: 04273 Subs Hosp L3
[2022-04-11 13:31] LABS: Pathologist Review Reviewed
--- NOTE | 2022-04-11 15:15 | EGD_PTH ---
PATIENT: KATARINA MELGOZA LOC: [facility] U#:[id number] AGE/SX: 66/M ROOM: [facility] RE04/10/[address]: Dr. Emi Mcgrath MD : 1955 BED: 1 DIS: 04/12/2022 SPEC #: [id number] RECD: 04/11/22 17:58 STATUS: ZOË REJuan Francisco #: [id number] MIN: 04/11/22 15:[address]: Lazaro Olivas DEPT: SURGICAL PATHOLOGY RECD BY: Romeo Antonio ENTERED: 04/12/22 08:18 SP TYPE: EGD BIOPSY OTHR DR: MD Dr. Rashid Grewal MD Dr. Joseph Prah, MD Dr. Mansour Isckarus, MD Dr. Prakash Chand, MD Dr. Robert Field, MD Dr. Ryan Jin, MD Dr. Roger Macklis, MD Dr. Scott Hannan, MD Dr. Steve Walston, DO Tyra Schlabach, ELECTRIC WELDER-C Tissues: A - Duodenum, NOS B - Esophagus, NOS Procedures: Special Stain Group I Surgery Specimen Level IV GMS Stain (control) HEADER OPERATION: EGD ([facility] [place]) PRE-OP DIAGNOSIS: Acute upper GI bleed, chemotherapy induced nausea and vomiting TISSUE SUBMITTED: A ? Duodenum, B ? Random esophagus MICROSCOPIC DIAGNOSIS A. Duodenum, biopsy: Fragments of duodenal mucosa with mild nonspecific chronic inflammation, reactive epithelial changes and Joan gland hyperplasia. B. Random esophagus, biopsy: Fragments of squamous mucosa with extensive ulceration and acute inflammation. See comment. SJ:jesu 04/13/2022 COMMENT B. Special stain for fungi is negative for organisms; matched control is appropriate. MICROSCOPIC DESCRIPTION Slides are reviewed. GROSS DESCRIPTION A - Received in fixative is one container labeled with the patient's name and designated duodenum. The specimen consists of two irregular fragments of light gutierrez soft tissue that in aggregate measure 0.6 x 0.5 x 0.1 cm. The specimen is totally submitted in one cassette. B - Received in fixative is one container labeled with the patient's name and designated random esophagus. The specimen consists of multiple irregular fragments of light gutierrez soft tissue that in aggregate measure 1 x 1 x 0.1 cm. The specimen is totally submitted in one cassette. / AM:jesu 04/12/2022 TC:2 CPT: 69659 x2, 23346
--- NOTE | 2022-04-11 17:40 | OP.EGD_ITS ---
Patient Name: Jesse Estrada Procedure Date: 04/11/2022 4:28 PM Date of : 1955 Age: 66 Procedure: Upper GI endoscopy Indications: Failure to respond to medical treatment, Hematochezia Providers: Lazaro Olivas DO Medicines: Monitored Anesthesia Care Patient Profile: This is a 66 year old male. Refer to note in patient chart for documentation of history and physical. Patient has symptoms. Complications: No immediate complications. Procedure: Pre-Anesthesia Assessment: - Prior to the procedure, a History and Physical was performed, and patient medications and allergies were reviewed. The risks and benefits of the procedure and the sedation options and risks were discussed with the patient. All questions were answered and informed consent was obtained. Patient identification and proposed procedure were verified by the physician. Mental Status Examination: alert and oriented. Airway Examination: normal oropharyngeal airway and neck mobility. Respiratory Examination: clear to auscultation. CV Examination: normal. Prophylactic Antibiotics: The patient does not require prophylactic antibiotics. Prior Anticoagulants: The patient has taken no previous anticoagulant or antiplatelet agents. ASA Grade Assessment: II - A patient with mild systemic disease. After reviewing the risks and benefits, the patient was deemed in satisfactory condition to undergo the procedure. The anesthesia plan was to use moderate sedation / analgesia (conscious sedation). Immediately prior to administration of medications, the patient was re-assessed for adequacy to receive sedatives. The heart rate, respiratory rate, oxygen saturations, blood pressure, adequacy of pulmonary ventilation, and response to care were monitored throughout the procedure. The physical status of the patient was re-assessed after the procedure. After obtaining informed consent, the endoscope was passed under direct vision. Throughout the procedure, the patient's blood pressure, pulse, and oxygen saturations were monitored continuously. The gastroscope was introduced through the mouth, and advanced to the second part of duodenum. The upper GI endoscopy was accomplished without difficulty. The patient tolerated the procedure well. Scope In: 5:24:21 PM Scope Out: 5:28:47 PM Total Procedure Duration Time 0 hours 4 minutes 26 seconds Findings: LA Grade D (one or more mucosal breaks involving at least 75% of esophageal circumference) esophagitis with bleeding was found 35 to 40 cm from the incisors. Biopsies were taken with a cold forceps for histology. Verification of patient identification for the specimen was done. Coagulation for hemostasis using heater probe was successful. Estimated blood loss was minimal. A medium-sized hiatal hernia was present. The cardia and gastric fundus were normal on retroflexion. Diffuse severe inflammation characterized by congestion (edema), erosions, erythema, friability and granularity was found in the third portion of the duodenum. Biopsies were taken with a cold forceps for histology. Verification of patient identification for the specimen was done. Estimated blood loss was minimal. Impression: - LA Grade D reflux esophagitis. Biopsied. Treated with a heater probe. - Medium-sized hiatal hernia. - Duodenitis. Biopsied. Recommendation: - Discharge patient to home. - Resume previous diet. - Continue present medications. - Await pathology results. -Magic mouthwash every 3 hours as needed -Viscous lidocaine every 3 hours schedule -Metoclopramide 5 mg every 6 to every 8 hours scheduled -DC octreotide -Carafate every 8 hours crushed p.o. Procedure Code(s): --- Professional --- 80439, 59, Esophagogastroduodenoscopy, flexible, transoral; with control of bleeding, any method 37345, 51, Esophagogastroduodenoscopy, flexible, transoral; with biopsy, single or multiple CPT copyright 2017 [employer]. All rights reserved. The codes documented in this report are preliminary and upon photo retoucher review may be revised to meet current compliance requirements. Lazaro Olivas DO 04/11/2022 5:39:44 PM This report has been signed electronically. Number of Addenda: 1 Note Initiated On: 04/11/2022 4:28 PM Addendum Number: 1 Addendum Date: 05/18/2022 6:01:32 AM MAC was used as sedation for this procedure. Lazaro Olivas DO 05/18/2022 6:01:36 AM This report has been signed electronically.
--- NOTE | 2022-04-11 17:40 | OP.CCLET_ITS ---
05/18/2022 George Cutler Re : Upper GI endoscopy procedure for Jesse Estrada Dear Omayra This procedure was performed on Monday, April 11, 2022. My impressions and recommendations are as follows: Impressions : - LA Grade D reflux esophagitis. Biopsied. Treated with a heater probe. - Medium-sized hiatal hernia. - Duodenitis. Biopsied. Recommendations : - Discharge patient to home. - Resume previous diet. - Continue present medications. - Await pathology results. -Magic mouthwash every 3 hours as needed -Viscous lidocaine every 3 hours schedule -Metoclopramide 5 mg every 6 to every 8 hours scheduled -DC octreotide -Carafate every 8 hours crushed p.o. My findings are described in the full procedure note, which is enclosed. If I can be of further assistance, please feel free to contact me at . Sincerely, Lazaro Friend, 04/11/2022 5:39:44 PM This report has been signed electronically.
[2022-04-12] VITALS: BP 112/76; PULSE 69; RESP 16; TEMP 36.9; O2SAT 94
[2022-04-12 03:00] VITALS: PULSE 68
[2022-04-12 06:00] VITALS: BP 117/70; PULSE 75; RESP 16; TEMP 36.8; O2SAT 92
[2022-04-12 06:50] VITALS: PULSE 65
[2022-04-12 07:46] VITALS: O2SAT 92
[2022-04-12] MEDS: Sucralfate 1 GM Tablet PO ×2 (07:57→10:39)
[2022-04-12 10:38] VITALS: BP 100/72; PULSE 78; RESP 16; TEMP 36.9; O2SAT 94
--- NOTE | 2022-04-12 11:18 | DS.PCM_ITS ---
Providers Date of Admission: 04/10/22 Date of Discharge: 04/12/22 Primary Care Physician: Dr. George Cutler MD Consultations 04/10/22 16:40 Consult: Gastroenterology Routine Consulting Provider: [facility] Reason for Consult: ACUTE GI BLEED EMERGENT Consult: No Notified: Yes Date Notified: 04/10/22 Time Notified: 15:49 Method of Notification: ED Physician Initiated Consult: Oncology/Hematology [facility]ine [facility] Reason for Consult: CHEMOTHEAPY INDUCED vomiting/adverse EMERGENT Consult: No Notified: Yes Date Notified: 04/10/22 Time Notified: 15:49 Method of Notification: ED Physician Initiated Reason For Visit: CHEMOTHERAPY ADVERSE/GI BLEED Diagnosis Discharge Diagnosis (1) Acute upper GI bleed: Status: Acute Code(s): K92.2 - Gastrointestinal hemorrhage, unspecified (2) Chemotherapy induced nausea and vomiting: Status: Acute Code(s): R11.2 - Nausea with vomiting, unspecified; T45.1X5A - Adverse effect of antineoplastic and immunosuppressive drugs, initial encounter (3) RADHA (acute kidney injury): Status: Acute Code(s): N17.9 - Acute kidney failure, unspecified (4) Transient hypotension: Status: Acute Code(s): I95.9 - Hypotension, unspecified Plan 1. Acute upper GI bleed 2. Chemotherapy induced nausea and vomiting 3. Acute kidney injury 4. Leukocytosis 5. Non-small cell lung cancer status post right lower lobectomy and chemotherapy 6. Severe protein calorie malnutrition Medications at Discharge Home Medications aspirin 81 mg tablet,delayed release 81 mg PO DAILY@0800 [facility] 12/03/15 atorvastatin 80 mg tablet 80 mg PO QHS #90 tabs 10/14/21 clopidogrel 75 mg tablet 75 mg PO DAILY #90 tabs 10/14/21 lisinopril 10 mg tablet 10 mg PO BID #180 tabs 10/14/21 nitroglycerin 0.4 mg sublingual tablet 0.4 mg sublingual Q5M PRN Chest Pain #25 tabs 10/14/21 lidocaine-prilocaine 2.5 %-2.5 % topical cream 1 applic topical ONCE PRN port access 30 days #30 grams 03/06/22 ondansetron 8 mg disintegrating tablet 8 mg PO Q8H PRN nausea and vomiting #30 tabs 03/06/22 prochlorperazine maleate 10 mg tablet 10 mg PO Q6H PRN nausea and vomiting #30 tabs 03/06/22 baclofen 10 mg tablet 10 mg PO TID PRN hiccups #30 tabs 03/30/22 dexamethasone 4 mg tablet 8 mg PO .COMPLEX #6 tabs 03/30/22 lidocaine HCl 2 % mucosal solution (Lidocaine Viscous) 5 ml PO Q3H PRN PRN NAUSEA 5 days #100 mL 04/12/22 metoclopramide HCl 5 mg tablet 5 mg PO Q8H 5 days #15 tabs 04/12/22 metoprolol tartrate 25 mg tablet 25 mg PO BID 30 days #60 tabs 04/12/22 sucralfate 1 gram tablet 1 g PO TIDAC 30 days #90 tabs 04/12/22 Hospital Course Operations None Procedures None Summary of Care Provided Minutes Spent on Discharge: 40 Hospital Course: 66-year-old male with past medical history of non-small cell lung cancer status post right lower lobectomy, on chemotherapy. Patient presented with nausea and vomiting ongoing since 04/07/22. This was associated with hematemesis. He had chemotherapy on 03/14. His nausea and vomiting started the next day after his chemotherapy. This has been persistent. On the day of admission, he started having hematemesis, mainly coffee-ground. Patient also felt lightheaded but did not pass out. He was short of breath on exertion. Denies chest pain or palpitation. In the emergency room, he was hypotensive, tachycardic. This improved with IV fluids. He had elevated leukocytosis. Chest x-ray was unremarkable. [facility], GI consulted, started on Protonix drip as well as octreotide drip. Oncology was also consulted. Patient underwent EGD on 04/11/22 that showed LA grade D reflux esophagitis that was biopsied. This was treated with heater probe. Medium sized hiatal hernia was present with duodenitis. Patient was recommended to have a Magic mouthwash every 3 hours as needed and also viscous lidocaine every 3 hours scheduled. He was transitioned to Reglan 5 mg every 8 hours scheduled for the next 5 days. He was also started on Carafate which was to be crushed. Patient was monitored overnight, no acute event. He was able to tolerate an advancement in his diet. His discharge hemoglobin was 11.4. He will follow-up with his primary care doctor within 1 week as well as with GI within 2 weeks. Physical Exam Narrative Physical exam: General: Alert, Oriented x3, Cooperative, No apparent distress HEENT: Atraumatic Oral: Moist Mucosa Neck: Supple Lungs: Clear to auscultation Cardiovascular: HS I+II, regular, no murmurs Abdomen: Bowel Sounds Present, Soft, Non Tender Extremities: No edema Skin: No rashes, No breakdown Neurological: Grossly intact Psych/Mental Status: Appropriate Medical Records Data Medical Nutrition Assessment Dietitian: Malnutrition Criteria Met Start: 04/11/22 09:34 Freq: Status: Active Protocol: Document 04/11/22 09:48 AG (Rec: 04/11/22 09:49 [id number]) Nutrition Malnutrition Evidence of Malnutrition Exists Yes Malnutrition (severe): Chronic Evidenced By Suboptimal Energy Intake ( Severe),Weight Loss (Severe) Clinical Problem Chronic Disease or Condition Related Malnutrition Etiology severe, chronic malnutrition related to inadequate energy intake w/ increased energy needs d/t cancer Signs/Symptoms as evidenced by unintentional wt loss of 18#/10% x 4 months; estimated PO intake meeting < 75% of estimated energy needs x 4 months Status Active Problem Recommendation Dietitian Recommendations/Changes advance diet as tolerated to regular; ensure w/ medpass when PO diet advanced given signs/symptoms of malnutrition Weight / BMI Weight Weight: 74.4 kg Body Mass Index (BMI) 26.6 ABG / Lab / Microbiology Data Result Diagrams: 04/11/22 04:33 04/11/22 04:33 Laboratory: Laboratory Results - last 24 hr 04/10/22 13:00: Diff Path Review Reviewed 04/11/22 04:33: Diff Path Review Reviewed Microbiology: Microbiology 04/10/22 17:40 Urine, Clean Catch Urine Culture - Preliminary Culture exhibits no growth. D/C Instructions Discharge Diet: No 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 Weight Bearing Status: Weight bearing as tolerated Meaningful Use Info Meaningful Use Diagnoses (Choose all that apply): None applicable Discharge Plan Admission Admit Date/Time: 04/10/22 15:40 Primary Reason for Your Visit: Acute GI bleed/esophagitis Attending Provider: Emi Mcgrath Primary Care Provider: George Cutler Consulting Providers: Rashid Ovalle ; Justin Mahmood ; Aileen Gibson ; John Staley ; Ian Engel ; Neptali Sweeney ; Jacob Galarza ; Alvina Torres NP ; Jonatan Keller Instructions Additional Instructions / Restrictions: Take note of changes to your medications. Note that your BP med - metoprolol dose has been reduced to 25mg BID Continue on a soft diet. Crush your sucralfate so you can take them safely. You have been discharged on an anti-nausea medication for 5 days. Discharge Orders/Prescriptions Prescriptions: New sucralfate 1 gram Tablet 1 g PO TIDAC 30 Days Qty: 90 0RF lidocaine HCl [Lidocaine Viscous] 2 % Solution 5 ml PO Q3H PRN PRN (Reason: NAUSEA) 5 Days Qty: 100 0RF metoprolol tartrate 25 mg tablet 25 mg PO BID 30 Days Qty: 60 0RF metoclopramide HCl 5 mg tablet 5 mg PO Q8H 5 Days Qty: 15 0RF Continued prochlorperazine maleate 10 mg tablet 10 mg PO Q6H PRN (Reason: nausea and vomiting) Qty: 30 2RF ondansetron 8 mg tablet,disintegrating 8 mg PO Q8H PRN (Reason: nausea and vomiting) Qty: 30 2RF lidocaine-prilocaine 2.5-2.5 % cream 1 applic topical ONCE PRN (Reason: port access) 30 Days Qty: 30 2RF baclofen 10 mg tablet 10 mg PO TID PRN (Reason: hiccups) Qty: 30 0RF dexamethasone 4 mg tablet 8 mg PO .COMPLEX Qty: 6 2RF Rx Instructions: 8 mg orally Daily on days 2 3 and 4 of chemotherapy cycle only; aspirin 81 MG tablet 81 mg PO DAILY@0800 atorvastatin 80 mg tablet 80 mg PO QHS Qty: 90 4RF clopidogrel 75 mg tablet 75 mg PO DAILY Qty: 90 4RF lisinopril 10 mg tablet 10 mg PO BID Qty: 180 4RF nitroglycerin 0.4 mg tablet, sublingual 0.4 mg SUBLINGUAL Q5M PRN (Reason: Chest Pain) Qty: 25 3RF Rx Instructions: script never filled Discontinued metoprolol succinate 50 mg tablet extended release 24 hr 50 mg PO QDAY Qty: 90 4RF Referrals / Follow Up: Lazaro Olivas DO [Med Staff - Active Staff] - 06/22/22 1:45 pm George Cutler MD [Primary Care Provider] - 04/20/22 12:50 pm Disposition Disposition (needs filled in before D/C Order can be placed): Home, Self Care Charges/Coding Visit Charges Inpatient E&M: 61869 Disch Hosp
--- NOTE | 2022-04-12 11:18 | CASEMGMT ---
This RN CM to room to discuss discharge with pt/ and they state no concerns with going home at time of discharge. Pt declines need for any further therapy at discharge and is aware that PCP can order once home, if he changes his mind. Pt/ voice no further questions/concerns/needs. [place]
[2022-04-12] MEDS: 0.9% Saline Lock 10 ML Syringe IV (11:58)
== END 2022-04-12 12:46 | disposition home or self-care (01) | DRG 368 ==
LOC: ED 13:18 → PCU 16:10
PROVIDERS: Anesthesiology; Internal Medicine Gastroenterology; Admitting Provider Internal Medicine; Emergency Provider Emergency Medicine; PCP Family Medicine; Visit Provider Internal Medicine
PROC: 0DJ08ZZ Inspection of Upper Intestinal Tract, Via Natural or Artificial Opening Endoscopic (ICD-10-PCS; CPT 43235; principal; 2022-04-11 15:10)
DX: K22.6 Gastro-esophageal laceration-hemorrhage syndrome (principal); C34.31 Malignant neoplasm of lower lobe, right bronchus or lung; E43 Unspecified severe protein-calorie malnutrition; N17.9 Acute kidney failure, unspecified; J44.9 Chronic obstructive pulmonary disease, unspecified; I50.22 Chronic systolic (congestive) heart failure; I11.0 Hypertensive heart disease with heart failure; I95.9 Hypotension, unspecified; E86.9 Volume depletion, unspecified; E78.5 Hyperlipidemia, unspecified; I25.5 Ischemic cardiomyopathy; I25.10 Atherosclerotic heart disease of native coronary artery without angina pectoris; R11.2 Nausea with vomiting, unspecified; K44.9 Diaphragmatic hernia without obstruction or gangrene; K29.80 Duodenitis without bleeding; K21.00 Gastro-esophageal reflux disease with esophagitis, without bleeding; T45.1X5A Adverse effect of antineoplastic and immunosuppressive drugs, initial encounter; Z79.82 Long term (current) use of aspirin; Z79.02 Long term (current) use of antithrombotics/antiplatelets; Z92.21 Personal history of antineoplastic chemotherapy; Z87.891 Personal history of nicotine dependence; Z51.5 Encounter for palliative care; Z66 Do not resuscitate; Z79.899 Other long term (current) drug therapy; Z68.26 Body mass index [BMI] 26.0-26.9, adult
CPT/HCPCS: 43255; 43239; 36415; 71045; 80053; 81001; 82248; 83690; 83735; 84100; 85014; 85018; 85025; 85610; 85730; 86850; 86900; 86901; 87040; 87086; 88305; 88312; 93005; 96365; 96366; 96368; 96375; 96376; 97802; 97803; 99285; 99406; J7030; J7120; A4216; J2405; J3490; Q5111

== ENCOUNTER → 2022-07-19 | Outpatient (CLI) | payer BC, SELFPAY ==
--- NOTE | 2022-07-19 13:00 | CT_ITS ---
STUDY: CT CHEST WITH CONTRAST REASON FOR EXAM: Male, 66 years old. F/U NSCLC S/P RL LOBECTOMY 01/2022 -- IV CONTRAST ONLY RADIATION DOSAGE (If Supplied By Facility): CTDIvol = ( 11.59 ) mGy, DLP = ( 362.05 ) mGycm TECHNIQUE: Transaxial imaging was performed following intravenous administration of IV 100mL Isovue-300. Individualized dose optimization techniques were used for this CT. COMPARISON: Comparison is made with prior study dated 11/10/2021. FINDINGS: CHEST A right-sided portacatheter is seen with the tip in the superior vena cava. The patient is status post right lower lobectomy. The previously seen spiculated nodule in the right lower lobe has been resected. Mild residual increased markings at the right lung base suggestive of postoperative scarring. Mild degree of emphysematous changes. There is no demonstrated pleural abnormality. There are calcifications of the coronary arteries. Mildly enlarged right pretracheal lymph node measuring 1.9 cm. Mildly enlarged lymph node in the aortopulmonary window measuring 1.5 cm. Small benign appearing mediastinal lymph nodes. Normal hilar regions. Normal unenhanced pulmonary arteries. Normal aorta arch and descending thoracic aorta. There are multi-level degenerative changes of the thoracic spine. Stable mild enlargement of the left adrenal gland with suggestion of a 1.[address]/Chest WITH Contrast IMPRESSION: Status post right lower lobectomy with resection of the spiculated right lower lobe pulmonary nodule. Stable mildly enlarged mediastinal and left hilar lymph nodes. Electronically Signed: Jermain Ho MD at 14:23 EST ,
[2022-07-19] MEDS: 0.9 % NaCl (Sterile) Posiflush 10 mL IV (13:20)
[2022-07-19 13:35] LABS: CREATININE FINGERSTICK < 0.9 mg/dL (0.70-1.30); EGFR FINGERSTICK > 60.0000 mL/min (>60)
== END | disposition home or self-care (01) ==
LOC: CT 12:59
PROVIDERS: PCP Family Medicine; Referring Provider Internal Medicine Hematology & Oncology; Visit Provider Internal Medicine Hematology & Oncology
DX: C34.90 Malignant neoplasm of unspecified part of unspecified bronchus or lung (principal)
CPT/HCPCS: 71260; Q9967; A4216

== ENCOUNTER 2022-08-10 09:30 | Outpatient (RCR) | payer BC, SELFPAY ==
--- NOTE | 2022-07-11 11:40 | HP.PTEVAL ---
Patient's Visit Information KATARINA MELGOZA is a 66 year old M referred to Physical Therapy by PATRICIA YoungC with a diagnosis of Weakness. Date of Evaluation: 07/11/22 Physical Therapist: Alex Story, MARGIET, OCS, CSCS - Visit Plan Frequency: 3x /Week Duration: 4-6 Weeks Plan: 3x/week for 3-6 weeks for. 1. rollout and stretch quads and HS(pt stretching at home). 2. core/postural and LE/hip strengthening (functional) and teach for HEP when able with pics. - Subjective i nilda got some weak legs. 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 chemo was through May 18. Legs have been weak since May. Also has pain throughout legs since May. Uses kapsacin cream 4x/day. pain is up to 7/10 intermittently and worse later in the day. Slightly painful at rest. Weakness presents as not able to walk as far as he used to. had lung surgery in January to take out part of lung and had chemo since and has been inactive. Steps are a little hard to do. getting out of chair can be hard. basic ADLs are OK. Not employed. Spends day lying around, works on car a little. 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 Hobbies; restore old cars. No regular exercises. No falls, balance not 100% though. - Pain LE Pain Intensity (Out of 10): 1 Pain Intensity Range: 0, 8 - Objective 91 HR adter steps. 99 spO2%. Walks i on firm surface into PT, steps reciprocal without rail, transfers without UE bed and chair. AROM LE WNL except for extremem tightness in quad and HS B, -50 90/90 test and _ Swapnil test. strength LE hips 3+ abd and ext and flexion, 4- knee flex and ext. ankles 4/5. coordination to reciprocal tapping and heel to garibay test. 2/3 patella and achilles reflex. Sensation LE WNL to gross light touch. - Balance/Special Test Scores Functional Gait Assessment Score: 29 % Disability: 3.3400 Lower Extremity Functional Score: 40 TUG Test Time Seconds: 8 30 Second Chair Rise Test Seconds: 13 - Goals Goal 1:: 18 reps on 30 second sit to stand test Goal Time Frame: 4-6 Weeks Goal 2:: LEFS 65 score to show improved mobility Goal Time Frame: 4-6 Weeks Goal 3:: Pain LE 2/10 at worst and 75% better. Goal Time Frame: 4-6 Weeks Goal 4:: I management of condition Goal Time Frame: 4-6 Weeks - Rehabilitation Potential Physical Therapy Diagnosis: Weakness and leg pain after chemo and sedentarism Rehabilitation Potential: Fair - Anticipated Interventions Patient/Client Instruction: Educate patient on: Condition, Plan of Care For the Purpose of:: To decrease pain, To increase ROM, To improve muscle performance and motor function, To increase tolerance to activity/condition/position Therapeutic Exercise to Include: Strength training, Postural training, Flexibilty training For the Purpose of:: To decrease pain, To increase ROM, To improve nutrient delivery to tissue, To increase oxygenation perfusion, To increase tolerance to activity/condition/position Manual Therapy Techniques to Include: Passive ROM, Soft tissue mobilization For the Purpose of:: To increase ROM Thank you for the opportunity to evaluate your patient. For Medicare and Medicare HMO plans, please review the plan of care and approve it. It will need to be FAXED BACK to us at [phone] for Medicare purposes. For Medicare only, by signing this I certify the plan of care. Please let me know if there are questions or concerns regarding this plan of care. Physician Signature: Date:
--- NOTE | 2022-08-10 10:25 | HP.PTDCSUM ---
It has been my pleasure to treat KATARINA MELGOZA referred by DAVID Young, with the diagnosis of Weakness for a total of 8 visit(s). Discharge Date: 08/10/22 Please see the following information for a summary of their discharge status. Subjective: Pt. states that he is doing well and is about 80% better since starting physical therapy. He reports that he is able to do his normal activities with no difficulty. He will have a follow up with neurologist in August. LE Pain Intensity (Out of 10): 0 % Improvement: 80 Objective/Function: Katarina has come to 8 sessions of physical therapy focusing on improving LE strength and balance. Reviewed pt. goals for therapy and he has met his goals for therapy. Pt. requested to continue with his exercises at home as he is doing well. Educated pt. to continue with his current HEP and has been discharged from physical therapy at this time. Goal 1:: 18 reps on 30 second sit to stand test Goal Progress: Goal Met Goal 2:: LEFS 65 score to show improved mobility Goal Progress: Goal Met Goal 3:: Pain LE 2/10 at worst and 75% better. Goal Progress: Goal Met Goal 4:: I management of condition Goal Progress: Goal Met Plan: Pt. will continue with his exercises at home and has been discharged from physical therapy at this time. Discharge Comments: Pt. agreeable to discharge and will continue with his current HEP. Has a follow up with neurologist in August. If there are questions or concerns regarding this patient's physical therapy, please feel free to call me at [phone]. Thank you for the referral of this patient. Sincerely, Robbei Dunbar Balance/Gait/Functional tests - Balance/Special Test Scores Functional Gait Assessment Score: 29 % Disability: 3.3400 Lower Extremity Functional Score: 72 TUG Test Time Seconds: 8 Tug Test: <10 sec.=free mobile 30 Second Chair Rise Test Seconds: 13
== END 2022-08-10 19:00 | disposition home or self-care (01) ==
LOC: PT 09:30
PROVIDERS: PCP Family Medicine; Referring Provider Nurse Practitioner Family; Visit Provider Nurse Practitioner Family
DX: R53.1 Weakness (principal)
CPT/HCPCS: 97110; 97161; 97164

== ENCOUNTER 2022-08-29 07:55 | Outpatient (RCR) | payer BC, SELFPAY | END 2022-09-12 23:59 | LOC: NS 07:55 | PROVIDERS: PCP Family Medicine; Visit Provider Internal Medicine Hematology & Oncology | DX: Z71.3 Dietary counseling and surveillance (principal) ==

== ENCOUNTER → 2023-01-04 | Outpatient (CLI) | payer MEDICARE, OTHER, SELFPAY ==
--- NOTE | 2023-01-04 15:03 | STRESSREP_ITS ---
Stress Test Report Exercise myocardial perfusion stress test. 67-year-old man with a history of coronary artery disease and chest pain Stress protocol: Resting EKG demonstrates sinus bradycardia with a rate of 48 bpm resting blood pressure is 122/70 mmHg. The patient exercised according to the regular Britton protocol for a total duration of 6 minutes attaining a maximum heart rate of 148 bpm which was 95% of maximum predicted heart rate; the maximum workload was 7 metabolic equivalents. At rest there were no ST or T wave changes noted to suggest ischemia and at peak exercise upsloping ST changes only were noted which did not meet the criteria for ischemia. No clinical angina was noted the test was terminated due to the target heart rate being achieved/fatigue. The peak blood pressure was 182/70 mmHg. Rate-pressure product was 23,600. Myocardial perfusion protocol. 11.8 mCi of technetium 99m sestamibi was injected at rest. The patient exercis ed according to regular Britton protocol for total duration of 6 minutes and at peak exercise 34.3 mCi of technetium 99m sestamibi was injected stress images were obtained stress and rest images were reconstructed in comparing the short axis vertical long and horizontal long axis. Gated images were also obtained. Perfusion SPECT analysis: Review of the stress images demonstrate a large defect noted in the anterior lateral and inferior lateral and inferior wall. The anterior septal and basal inferior wall appear to be well perfused and the anterior basal wall is also well perfused. A similar pattern is seen on the resting images demonstrating a previous infarct in this area. No ischemia is noted. Gated SPECT analysis: The gated ejection fraction is 41%. Conclusion: Myocardial perfusion stress test with large anterolateral, inferolateral and inferior defect. This is fixed. No ischemia is noted. Mild cardiomyopathy present.
== END | disposition home or self-care (01) ==
LOC: CVS 06:54
PROVIDERS: PCP Nurse Practitioner Family; Referring Provider Physician Assistant Medical; Visit Provider Physician Assistant Medical
DX: R07.9 Chest pain, unspecified (principal); Z95.5 Presence of coronary angioplasty implant and graft
CPT/HCPCS: 78452; 93017; A9500; A4216

== ENCOUNTER → 2023-01-17 | Outpatient (CLI) | payer MEDICARE, OTHER, SELFPAY ==
--- NOTE | 2023-01-17 12:56 | CT_ITS ---
STUDY: CT CHEST T ABDOMEN WITH CONTRAST REASON FOR EXAM: Male, 67 years old. Follow-up examination. History of lung cancer. RADIATION DOSAGE (If Supplied By Facility): CTDIvol = ( 14.56 ) mGy, DLP = ( 917.39 ) mGycm TECHNIQUE: Transaxial imaging was performed following intravenous administration of IV 100mL Isovue-300. Individualized dose optimization techniques were used for this CT. COMPARISON: Comparison is made with prior examination of July 19, 2022. FINDINGS: CHEST The right sided emile catheter has been removed. Once again, the patient is status post right lower lobectomy. Minimal bibasilar scarring. There is no demonstrated pleural abnormality. Normal heart and pericardium. There are multiple small lymph nodes within the mediastinum, which are normal in size and morphology most compatible with reactive lymph hyperplasia. Normal hilar regions. Normal unenhanced pulmonary arteries. Normal aorta arch and descending thoracic aorta. There are multi-level degenerative changes of the thoracic spine. Stable mild hyperplasia of the left ABDOMEN Normal liver. Normal gallbladder and extrahepatic biliary system. Normal spleen. Normal pancreas. Mild degree of hyperplasia of the left adrenal gland. Normal right kidney. Normal left kidney. Normal visualized stomach. Normal small intestine. Normal colon. The appendix is visualized and appears normal. There is diffuse atherosclerotic calcification of the abdominal aorta. Mildly dilated infrarenal abdominal aorta with a transverse dimension of 3.2 cm. Mural thrombus is seen. Normal inferior vena cava. Normal retroperitoneum. There is a small umbilical hernia containing fat. Normal osseous structures. CT/CT Chest AND Abd W/ Contrast IMPRESSION: Stable examination. Electronically Signed: Jermain Ho MD at 10:35 EDT ,
[2023-01-17 13:20] LABS: CREATININE FINGERSTICK 1.3 mg/dL (0.70-1.30)
== END | disposition home or self-care (01) ==
LOC: CT 12:55
PROVIDERS: PCP Nurse Practitioner Family; Referring Provider Internal Medicine Hematology & Oncology; Visit Provider Internal Medicine Hematology & Oncology
DX: C34.31 Malignant neoplasm of lower lobe, right bronchus or lung (principal); D72.829 Elevated white blood cell count, unspecified
CPT/HCPCS: 71260; 74160; Q9967

== ENCOUNTER → 2023-03-14 | Outpatient (CLI) | payer MEDICARE, OTHER, SELFPAY ==
--- NOTE | 2023-03-14 08:42 | AAVD_ITS ---
Reason For Study: AAA Aorta Measurements Aorta Doppler Measurements Proximal aorta measures2.58 x 2.53cm. in cross- Peak systolic flow velocities within the proximal sectional axis. aorta measure 59.4 cm/sec. Proximal aorta measures2.52cm. in longitudinal Peak systolic flow velocities within the mid aorta axis. measure 68.7 cm/sec. Mid aorta measures2.32 x 2.29cm. in cross- Peak systolic flow velocities within the distal sectional axis. aorta measure 31.8 cm/sec. Mid aorta measures2.32cm. in longitudinal axis. Distal aorta measures2.76 x 2.82cm. in cross- sectional axis. Distal aorta measures2.85cm. in longitudinal axis. Left Iliac Artery Left iliac artery measures 0.83 x 0.86 cm. in the cross-sectional axis. Left iliac artery measures 0.88 cm. in the longitudinal axis. Peak systolic velocity in the left iliac artery measures 96.6 cm/sec. Right Iliac Artery Right iliac artery measures 0.71 x 0.78 cm. in the cross-sectional axis. Right iliac artery measures 0.78 cm. in the longitudinal axis. Peak systolic velocity in the right iliac artery measures 195.8 cm/sec. VL/Abd Aortic/IVC Duplex scan Interpretation Summary No aorta iliac aneurysm or stenosis visualized. Ordering Physician: Sabas Bella Referring Physician: Pastora Mcneil Performed By: Roverto Gould RVT
== END | disposition home or self-care (01) ==
LOC: CVS 08:40
PROVIDERS: PCP Nurse Practitioner Family; Referring Provider Surgery Vascular Surgery; Visit Provider Surgery Vascular Surgery
DX: I71.43 Infrarenal abdominal aortic aneurysm, without rupture (principal); Z72.0 Tobacco use
CPT/HCPCS: 93978

== ENCOUNTER → 2023-08-22 | Outpatient (CLI) | payer MEDICARE, OTHER, SELFPAY ==
--- NOTE | 2023-08-22 12:47 | CT_ITS ---
STUDY: CT CHEST T ABDOMEN WITH CONTRAST REASON FOR EXAM: Male, 67 years old. F/U NSCLC IV CONTRAST ONLY RADIATION DOSAGE (If Supplied By Facility): CTDIvol = ( 18.25 ) mGy, DLP = ( 1406.01 ) mGycm TECHNIQUE: Transaxial imaging was performed following intravenous administration of IV 100mL Isovue-300. Multiplanar coronal and sagittal images were reformatted. Individualized dose optimization techniques were used for this CT. COMPARISON: Comparison is made with prior study dated January 17, 2023. FINDINGS: CHEST Small fat-containing bilateral axillary lymph nodes. Stable mild elevation of the right hemidiaphragm. The patient is status post right lower lobectomy. Stable mild bibasilar scarring. There is no demonstrated pleural abnormality. No significant coronary artery calcification is seen. There are small lymph nodes within the mediastinum, which are normal in size and morphology most compatible with reactive lymph hyperplasia. Normal hilar regions. Normal unenhanced pulmonary arteries. Normal aorta arch and descending thoracic aorta. There are multi-level degenerative changes of the thoracic spine. Fatty infiltration of the liver. ABDOMEN There is decreased attenuation of the liver consistent with steatosis. Normal gallbladder and extrahepatic biliary system. Normal spleen. Normal pancreas. Normal bilateral adrenal glands. Normal right kidney. Normal left kidney. There is a small hiatal hernia. Normal small intestine. Normal colon. The appendix is visualized and appears normal. There is scattered atherosclerotic calcification of the abdominal aorta. 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 There has been no change. Normal inferior vena cava. Normal retroperitoneum. There is a small umbilical hernia containing fat. There are mild degenerative changes of the visualized lumbar spine. CT/CT Chest AND Abd W/ Contrast IMPRESSION: Stable examination. Electronically Signed: Jermain Ho MD at 13:58 EST ,
--- OUTSIDE RECORDS SUMMARY | 2023-08-22 13:16 | XMS RPT_ITS | CCD ---
Author Name Unknown Address [address] [place] [address] Organization [facility] Care Team Providers Care Supervisor Polishing Name Role Phone Sadie NG, Tiana A Unavailable Unavailable Clare TRACEY, Nicholas Child Unavailable HERNANDEZ Celaya, Aissatou Mantilla Unavailable Unavailabl e Ljis, Harumi Y Unavailable Unavailable Sadie NG, Tiana A Unavailable Unavailable Sadie NG, Tiana A Unavailable Unavailable Sadie NG, Tiana A Unavailable Unavailable Pk Vargas Unavailable Unavailable HERNANDEZ Celaya, Aissatou Mantilla Unavailable Unavailabl e DeFinis, Harumi Y Unavailable Unavailable Ljis, Harumi Y Unavailable Unavailable Lenard Elizondo (Hist) Primary Care Provider Un available Tahira Cutler Primary Care Provider [phone] Medications Current Medications Medication Drug Class(es) Dates Sig (Normalized) Sig (Original) albuterol 0.83 mg/ml inhalation solution (1 source) beta2-Adrenergic Agonist Start: 01-26-2022 albuterol (PROVENTIL) nebulizer solution 2.5 mg 0.4 ml enoxaparin sodium 100 mg/ml prefilled syringe (1 source) Low Molecular Weight Heparin Start: 01-26-2022 enoxaparin (LOVENOX) injection 40 mg HYDROmorphone (DILAUDID) injection 0.25 mg (1 source) Start: 01-25-2022 HYDROmorphone (DILAUDID) injection 0.25 mg ondansetron (ZOFRAN-ODT) disintegrating tablet 4 mg (1 source) Start: 01-25-2022 ondansetron (ZOFRAN-ODT) disintegrating tablet 4 mg oxyCODONE hydrochloride 5 mg oral tablet (2 sources) Opioid Agonist Start: 01-26-2022 End: 02-02-2022 oxyCODONE (ROXICODONE) 5 MG immediate release tablet Indications: Lung nodule Take 1 tablet by mouth every 6 hours as needed for Pain for up to 7 days. Intended supply: 7 days. Take lowest dose possible to manage pain 28 tablet 0 01/26/2022 02/02/2022 Active Completed/Discontinued Medications Medication Drug Class(es) Dates Sig (Normalized) Sig (Original) acetaminophen 500 mg oral tablet (2 sources) Start: 01-25-2022 End: 01-25-2022 take 1000 mg by mouth three times daily, then take 4000 mg by mouth every twenty-four hours 1,000 mg, Oral, 3 times daily, First dose on Sun01/25/22 at 2100, Until Discontinued Maximum dose of acetaminophen is 4000 mg from all sources in 24 hours. aspirin 81 mg delayed release oral tablet (16 sources) Nonsteroidal Anti-inflammatory Drug Start: 01-22-2016 take 1 tablet by mouth once daily ASPIRIN EC 81 MG TBEC One tablet by mouth daily ASPIRIN [id number] Tiana Noel RN atorvastatin 80 mg oral tablet (17 sources) HMG-CoA Reductase Inhibitor Start: 01-25-2022 take 80 mg by mouth once daily 80 mg, Oral, DAILY, First dose on Sun01/25/22 at 2100, Until Discontinued Problems Active Problems Problem Classification Problem Date Documented Da te Episodic/Chronic Congestive heart failure; nonhypertensive (15 sources) Congestive heart failure; Translations: [Chronic systolic (congestive) heart failure] Onset: [birth year]1959 02-20-2017 Chronic Coronary atherosclerosis and other heart disease (20 sources) Generalized ischemic myocardial dysfunction; Translations: [Coronary arteriosclerosis] Onset: 08-13-1959 02-20-2017 Chronic Disorders of lipid metabolism (15 sources) Hyperlipidemia; Translations: [Hyperlipidemia, unspecified] 02-20-2017 Chronic Essential hypertension (15 sources) Hypertensive disorder; Translations: [Essential (primary) hypertension] 02-20-2017 Chronic Other lower respiratory disease (2 sources) Nodule of lung; Translations: [Solitary pulmonary nodule] Onset: 01-25-2022 Episodic Screening or history of mental health and substance abuse (15 sources) Tobacco user; Translations: [Tobacco use] Onset: 02-20-2017 02-20-2017 Chronic Unclassified (19 sources) Placement of stent in coronary artery ; Translations: [Presence of other cardiac implants and grafts] Onset: 02-20-2017 02-20-2017 Past or Other Problems Problem Classification Problem Date Documented Da te Episodic/Chronic Calculus of urinary tract (1 source) Kidney stone; Translations: [Calculus of kidney] Onset: 01-21-2010 01-21-2010 Episodic Coronary atherosclerosis and other heart disease (1 source) Patient post percutaneous transluminal coronary angioplasty; Translations: [Coronary angioplasty status] Onset: 04-10-2016 04-10-2016 Episodic Diabetes mellitus without complication (1 source) Impaired glucose tolerance; Translations: [Impaired glucose tolerance (oral)] Onset: 01-22-2012 01-22-2012 Episodic Other and unspecified benign neoplasm (1 source) Benign neoplasm of rectum and anal canal; Translations: [Benign neoplasm of rectum] Onset: 04-26-2012 04-26-2012 Episodic Other nutritional; endocrine; and metabolic disorders (11 sources) Body mass index (BMI) 26.0-26.9, adult; Translations: [Body mass index (BMI) 26.0-26.9, adult] Onset: 02-22-2017 02-22-2017 Episodic Residual codes; unclassified (1 source) Tobacco user; Translations: [Tobacco use] Onset: 01-21-2010 01-21-2010 Episodic Results Test Name Value Interpretation Reference Range Facil ity Vital Signs Date Time Vital Sign Value Performing Clinician Danya lopez 01-27-2022 12:06-0400 Body temperature 97.7 [degF] Livia OUYA Work Phone: [facility] 01-27-2022 12:06-0400 Diastolic blood pressure 68 mm[Hg] Livia OUYA Work Phone: [facility] 01-27-2022 12:06-0400 Heart rate 61 /min Livia [employer] DO Work Phone: [facility] 01-27-2022 12:06-0400 Respiratory rate 18 /min Livia Beckford [place] Work Phone: [facility] 01-27-2022 12:06-0400 SaO2% (BldA) [Mass fraction] 91 % Livia OUYA Work Phone: [facility] 01-27-2022 12:06-0400 Systolic blood pressure 113 mm[Hg] Livia Beckford DO Work Phone: [facility] 02-22-2017 13:54-0400 Heart rate 55 /min Pk Vargas [facility] Work Phone: 02-22-2017 13:42-0400 BMI (Body Mass Index) 26.91 kg/m2 Nicholas Sparks MD [facility] Work Phone: 02-22-2017 13:42-0400 BP Diastolic 60 mm[Hg] Nicholas Sparks MD [facility] Work Phone: 02-22-2017 13:42-0400 BP Systolic 108 mm[Hg] Nicholas Sparks MD [facility] Work Phone: 02-22-2017 13:42-0400 Height 172.72 cm Nicholas Sparks MD [facility] Work Phone: 02-22-2017 13:42-0400 Pulse (Heart Rate) 56 /min [facility] Work Phone: 02-22-2017 13:42-0400 Respiratory Rate 16 /min Nicholas Sparks MD [facility] Work Phone: 02-22-2017 13:42-0400 Weight 80.29 kg Nicholas Sparks MD [facility] Work Phone: Encounters Encounter Date Encounter Type Care Provider Facility Start: 01-25-2022 End: 01-27-2022 Evaluation and management of inpatient Livia Beckford DO Work Phone: [facility] Procedures Date Procedure Procedure Detail Performing Clinician Start: 01-27-2022 Radiologic exam chest single view Sam Altman MD Work Phone: Start: 01-27-2022 Basic metabolic panel calcium total Sam Altman MD Work Phone: Start: 01-26-2022 Radiologic exam chest single view Sam Altman MD Work Phone: Start: 01-26-2022 Basic metabolic panel calcium total Sam Altman MD Work Phone: Start: 01-25-2022 OPERATIVE REPORT Physician Generic Start: 01-25-2022 Radiologic exam chest single view Sam Altman MD Work Phone: Start: 01-25-2022 End: 01-25-2022 BLOOD GAS, ARTERIAL Livia Beckford DO Work Phone: Start: 01-25-2022 Antibody screen Livia Beckford DO Work Phone: Start: 01-25-2022 Ecg routine ecg w/least 12 lds w/i&r Mike Aponte MD Work Phone: Start: 01-25-2022 BASIC METABOLIC PANEL W/ REFLEX TO MG FOR LOW K Ke Mitchell [employer] Work Phone: Start: 01-25-2022 Blood count complete auto&auto difrntl wbc Ke Lucianoer [employer] Work Phone: Start: 01-25-2022 Blood typing serologic abo Ke Lucianoer [employer] Work Phone: Start: 09-13-2017 End: 09-27-2017 Lipid panel [AGGREGATE] Nicholas Sparks MD Start: 02-22-2017 End: 02-22-2017 Dietary management education, guidance, and counseling Aissatou Celaya RN Start: 02-22-2017 End: 03-13-2017 *BMP Nicholas Sparks MD Start: 02-22-2017 End: 03-13-2017 *Hepatic Function Panel Nicholas Sparks MD Start: 02-22-2017 End: 03-03-2017 Echocardiography Nicholas Sparks MD Start: 02-22-2017 End: 02-22-2017 Electrocardiogram, complete Nicholas trujillo MD Start: 02-22-2017 End: 02-22-2017 Follow Up Appt 6 months Nicholas Sparks MD Start: 02-22-2017 End: 03-13-2017 Lipid panel [AGGREGATE] Nicholas Sparks MD Start: 02-22-2017 End: 02-22-2017 PFM Nicholas Sparks MD Start: 02-20-2017 Placement of stent in coronary artery Mutilple coronary stents Tiana Noel RN Start: 04-26-2012 Colonoscopy Katarina Evangelista Work Phone: Plan of Treatment Date Care Activity Detail Author Start: 04-26-2022 Screening for malignant neoplasm of colon [facility] Start: 04-13-2022 Influenza vaccination Flu vaccine (Season Ended) [facility] Start: 02-07-2022 End: 02-07-2022 Evaluation and management of inpatient 02/07/2022 Office Visit Cardiothoracic Surgery Livia Beckford DO [address] [place] [address] [address] [place], [place] [id number] [facility] Start: 04-13-2021 Influenza vaccination INFLUENZA (Season Ended) [facility] Start: 09-13-2017 End: 03-21-2017 *Hepatic Function Panel *Hepatic Function Panel [facility] Work Phone: Start: 09-13-2017 End: 09-27-2017 Lipid panel [AGGREGATE] *Lipid Profile CC PCP [facility] Work Phone: Start: 09-05-2017 End: 09-05-2017 Appointment Appointment [facility] Work Phone: Start: 02-22-2017 End: 02-22-2017 Appointment Appointment [facility] Work Phone: Start: 02-22-2017 End: 03-13-2017 *BMP *BMP [facility] Work Phone: Start: 02-22-2017 End: 03-13-2017 *Hepatic Function Panel *Hepatic Function Panel [facility] Work Phone: Start: 02-22-2017 End: 02-22-2017 Echocardiography Echocardiogram (complete) [facility] Work Phone: Start: 02-22-2017 End: 02-22-2017 Electrocardiogram, complete EKG (In office) [employer] Phone: Start: 02-22-2017 End: 02-22-2017 Follow Up Appt 6 months Follow Up Appt 6 months [employer] Phone: Start: 02-22-2017 End: 03-13-2017 Lipid panel [AGGREGATE] *Lipid Profile CC PCP [employer] Work Phone: Start: 02-22-2017 End: 02-22-2017 PFM [facility] Phone: Start: 12-13-2016 LIPID SCREEN LIPID SCREEN [facility] Start: 11-29-2016 Hemoglobin A1c measurement A1C test (Diabetic or Prediabetic) [facility] Start: 11-29-2016 Lipid panel Lipids [facility] Start: 01-21-2015 PROSTATE CANCER SCREENING DISCUSSION PROSTATE CANCER SCREENING DISCUSSION [facility] Start: 12-13-2014 DIABETES SCREEN DIABETES SCREEN [facility] Start: 12-21-2007 Screening for malignant neoplasm of colon [facility] Start: 12-21-2007 Shingles vaccine (1 of 2) Shingles vaccine (1 of 2) [facility] Start: 12-21-2007 SHINGRIX VACCINE (1 of 2) SHINGRIX VACCINE (1 of 2) [facility] Start: 08-14-2004 DTaP/Tdap/Td vaccine (1 - Tdap) DTaP/Tdap/Td vaccine (1 - Tdap) [facility] Start: 2002 Screening for malignant neoplasm of colon [facility] Start: 1997 Prostate specific antigen measurement Prostate Specific Antigen (PSA) Screening or Monitoring [facility] Start: 1976 Urine microalbumin profile DTAP,TDAP,TD (1 - Tdap) [facility] Start: 12-21-1975 HEPATITIS C SCREENING HEPATITIS C SCREENING [facility] Start: 12-21-1975 Hepatitis C screening Hepatitis C screen [facility] Start: 12-21-1975 HIV SCREENING HIV SCREENING [facility] Start: 1972 HIV screening HIV screen [facility] Start: 1969 Adult depression screening assessment DEPRESSION SCREENING [facility] Start: 1969 Depression Screen Depression Screen [facility] Basic metabolic 2000 panel - Serum or Plasma Basic Metabolic Panel Lab Routine Daily until discontinued starting 01/26/2022, 2 completed [facility] Work Phone: Immunizations Immunization Date Immunization Notes Care Provider Amy yao 08-13-2004 tetanus and diphther ia toxoids, not adsorbed, for adult use Katarina Evangelista Work Phone: [facility] Payers Date Payer Category Payer Unknown [employer] [address] [employer] [address] X HMO KARLY [id number] 2022-Present [address] [place] [address] [id number] 2011 Unknown MMO MMO [employer] [id number] 2011-Present PPO [id number] Social History Date Type Detail Facility Start: 01-22-2012 Tobacco smoking stat [facility] Current every day smoker [facility] Start: 08-13-1975 End: 12-05-2021 History of tobacco use Cigarette Smoker [facility] Start: 01-22-2012 Cigarettes smoked current (pack per day) - Reported [facility] Start: 01-22-2012 End: 01-25-2022 Alcohol intake Current non-drinker of alcohol (finding) [facility] Start: 1955 Sex Assigned At Not on file [facility] Start: 04-05-2016 [facility] Start: 08-13-1975 End: 12-05-2021 History of tobacco use Current smoker [facility] Work Phone: Start: 04-05-2016 Tobacco use and exposure Smokeless tobacco non-user [facility] Work Phone: Start: 04-05-2016 Tobacco Comment quit 1 week ago [facility] Work Phone: Start: 01-15-2022 End: 01-25-2022 Exposure to SARS-CoV-2 (event) Not sure [facility] Work Phone: History of Present illness Narrative 01-27-2022 Sam Altman MD - 01/27/2022 4:38 PM EDTChdavid Bustos DTR - 01/27/2022 11:45 AM Eliza Altman MD - 01/26/2022 6:30 AM EDT Note Date & Type Note Facility 01-27-2022 History of Present illness Narrative Chest tube removed. Patient tolerated well. Plan to d/c home. Sam Altman MD General Surgery, PGY-4 01/27/2022 4:38 PM Nutrition rescreen completed. Chart reviewed. Patient to be monitored and followed by the diet motorcycle technician. Images from the original note were not included. Department of Surgery - Progress Note - CTS PATIENT NAME: Katarina Melgoza ADMIT DATE: 01/25/2022 TODAY'S DATE: 01/26/2022 CURRENT ROOM: [address] [place] [address] PAST 24 HOUR EVENTS / SUBJECTIVE NAEO. Ate dinner. Did not get out of bed. OBJECTIVE VITALS: BP 107/65 Pulse 67 Temp 98.2 F (36.8 C) (Temporal) Resp 16 SpO2 96% PHYSICAL EXAM: CONSTITUTIONAL: No acute distress, non-toxic appearance NEURO: Alert, oriented x3 HEENT: Normocephalic, no scleral icterus CHEST: Resp effort easy and unlabored. Right chest tube with s/s output. No air leak SKIN: Warm and dry EXTREMITIES: No gross deformities INTAKE/OUTPUT: Date 01/26/22 0000 - 01/26/22 2359 Shift 9575-2415 9329-1592 4324-2881 24 Hour Total INTAKE Shift Total OUTPUT Urine 500 500 Chest Tube 100 100 Shift Total 600 600 Weight (kg) I/O last 3 completed shifts: In: 1500 [I.V.:1500] Out: 370 [Urine:220; Blood:50; Chest Tube:100] I/O this shift: In: - Out: 600 [Urine:500; Chest Tube:100] Data Recent Labs 01/25/22 0940 01/26/22 0102 WBC 8.1 14.1* HGB 15.4 14.2 HCT 44.0 41.0 PLT 241 228 Recent Labs 01/25/22 0940 01/26/22 0102 NA 137 134* K 4.1 4.6 CL 105 106 CO2 24 22 BUN 17 19* CREATININE 0.72 0.79 GLUCOSE 126* 214* No results for input(s): AST, ALT, ALB, BILITOT, ALKPHOS in the last 72 hours. Current Inpatient Medications Current Facility-Administered Medications: ceFAZolin (ANCEF) 2000 mg in dextrose 4 % 100 mL IVPB (premix), 2,000 mg, IntraVENous, Q8H labetalol (NORMODYNE;TRANDATE) injection 10 mg, 10 mg, IntraVENous, Q4H PRN hydrALAZINE (APRESOLINE) injection 10 mg, 10 mg, IntraVENous, Q4H PRN atorvastatin (LIPITOR) tablet 80 mg, 80 mg, Oral, Daily metoprolol tartrate (LOPRESSOR) tablet 25 mg, 25 mg, Oral, BID sodium chloride flush 0.9 % injection 5-40 mL, 5-40 mL, IntraVENous, 2 times per day sodium chloride flush 0.9 % injection 5-40 mL, 5-40 mL, IntraVENous, PRN 0.9 % sodium chloride infusion, , IntraVENous, PRN ondansetron (ZOFRAN-ODT) disintegrating tablet 4 mg, 4 mg, Oral, Q8H PRN OR ondansetron (ZOFRAN) injection 4 mg, 4 mg, IntraVENous, Q6H PRN albuterol sulfate HFA (PROVENTIL;VENTOLIN;PROAIR) 108 (90 Base) MCG/ACT inhaler 2 puff, 2 puff, Inhalation, Q4H PRN acetaminophen (TYLENOL) tablet 1,000 mg, 1,000 mg, Oral, TID oxyCODONE (ROXICODONE) immediate release tablet 5 mg, 5 mg, Oral, Q4H PRN OR oxyCODONE (ROXICODONE) immediate release tablet 10 mg, 10 mg, Oral, Q4H PRN HYDROmorphone (DILAUDID) injection 0.25 mg, 0.25 mg, IntraVENous, Q3H PRN OR HYDROmorphone (DILAUDID) injection 0.5 mg, 0.5 mg, IntraVENous, Q3H PRN methocarbamol (ROBAXIN) tablet 500 mg, 500 mg, Oral, TID ASSESSMENT AND PLAN 66 y.o. male status post robotic assisted right lower lobectomy on 01/25 - Chest tube to water seal this AM - Repeat CXR later, if lung expanded then potential d/c home Sam Altman MD General Surgery, PGY-4 01/26/2022 6:30 AM Associated attestation - Livia Beckford DO - 01/27/2022 8:46 AM EDT ATTESTATION The patient was seen and examined. I have reviewed the patients presentation, histories, imaging and serology studies. I agree with the above assessment and plan. My date of service is 01/26/2022. Doing well postop. Has not been OOB/ambulating yet. Ready to do so. I (Livia Beckford) personally supervised the resident in the evaluation and development of a treatment plan for this patient including using nursing/ems notes. I personally discussed the review of systems and interviewed the patient along with performing a physical examination. In addition, I discussed the patient's condition and treatment options with them. I have also reviewed and agree with the past medical, family and social history unless otherwise noted and personally reviewed the imaging and labs. This note may be a delayed entry. All of the patient's questions were answered. The patient was seen and examined independently and relevant data reviewed by myself. A full chart review was performed. Electronically signed by Livia Beckford DO. documented in this encounter [facility] Work Phone: Hospital Discharge instructions 01-26-2022 Instructions Note Date & Type Note Facility 01-26-2022 Hospital Discharg e Sam Christianson MD - 01/26/2022 Images from the original note were not included. Discharge Instructions Call your surgeon in 1 to 2 days to schedule a follow-up appointment in 1-2 weeks. OK to shower tomorrow. Let warm soap and water wash over the incision. Do not scrub. Pat dry. OK for activity as tolerated. No lifting over 10 pounds. Wound Care: keep wound clean and dry Leave surgical dressing in place until seen in office. No driving while taking narcotic pain medications. You may take an over the counter stool softener while on narcotics for constipation as needed (colace, miralax, etc). Call your Physician or return to the Emergency Room if you experience: -New or increased pain. -New or increased bleeding. -Nausea & vomitting. -Fever & chills. -Shortness of breath. -Chest pain. -Abdominal distention. documented in this encounter [facility] Work Phone: Discharge summary note 01-26-2022 Note Date & Type Note Facility 01-26-2022 Note Discharge Summary Katarina Melgoza : 1955 ADMIT DATE: 01/25/2022 DISCHARGE DATE: 01/27/22 PRIMARY CARE PHYSICIAN: TAHIRA CUTLER VISIT STATUS: Admission CODE STATUS: Full Code DISCHARGE DIAGNOSES: Active Problems: Lung nodule Resolved Problems: * No resolved hospital problems. * HOSPITAL COURSE: Patient presented on 01/25/2022 for an elective: PROCEDURE: 1. Right robotic assisted thoracoscopy 2. Flexible Bronchoscopy 3. Right Lower lobectomy 4. Mediastinal lymph node dissection Patient was admitted to the floor post op. No air leak and chest tube was removed on POD#2. He was discharged on POD#2. At the time of discharge, the patient's vital signs were within normal limits. Patient was voiding spontaneously, tolerating a diet, ambulating independently, and having bowel function. Patient's pain was controlled with PO pain meds. Pt was discharged with instructions as follows. PROBLEM LIST: Patient Active Problem List Diagnosis ? Coronary artery disease involving venetie ira coronary artery without angina pectoris ? S/P PTCA (percutaneous transluminal coronary angioplasty) ? Lung nodule DISCHARGE MEDICATIONS: Medication List START taking these medications oxyCODONE 5 MG immediate release tablet Commonly known as: Roxicodone Take 1 tablet by mouth every 6 hours as needed for Pain for up to 7 days. Intended supply: 7 days. Take lowest dose possible to manage pain polyethylene glycol 17 GM/SCOOP powder Commonly known as: GLYCOLAX Take 17 g by mouth daily CHANGE how you take these medications * lisinopril 2.5 MG tablet Commonly known as: PRINIVIL;ZESTRIL What changed: Another medication with the same name was changed. Make sure you understand how and when to take each. * lisinopril 5 MG tablet Commonly known as: PRINIVIL;ZESTRIL Take 1 tablet by mouth daily What changed: ? how much to take ? when to take this * This list has 2 medication(s) that are the same as other medications prescribed for you. Read the directions carefully, and ask your doctor or other care provider to review them with you. CONTINUE taking these medications aspirin 81 MG EC tablet atorvastatin 80 MG tablet Commonly known as: LIPITOR Take 1 tablet by mouth daily clopidogrel 75 MG tablet Commonly known as: PLAVIX Take 1 tablet by mouth daily metoprolol succinate 50 MG extended release tablet Commonly known as: TOPROL XL Take 1 tablet by mouth daily nitroGLYCERIN 0.4 MG SL tablet Commonly known as: NITROSTAT Where to Get Your Medications These medications were sent to [facility] [address] - [phone] - [phone] [address] [facility] [address] ? oxyCODONE 5 MG immediate release tablet ? polyethylene glycol 17 GM/SCOOP powder DIET: ADULT DIET; Regular ACTIVITY: No heavy lifting. WOUND CARE: keep wound clean and dry and as directed OTHER INSTRUCTIONS: see discharge instructions provided BMI CLASSIFICATION: - There is no height or weight on file to calculate BMI. - Overweight (BMI 25.0-29.9) DISPOSITION: Home FACILITY/HOME CARE AGENCY NAME: n/a Follow up with Tahira [address] [place] [address] Livia Beckford [address] [place] [address] [address] [place] [address] On 02/07/2022 10:30am - f/u pathology and incision check/stitch removal SIGNED: Sam Altman MD 01/27/2022, 4:47 PM [facility] Note Date & Type Note Facility documented in this encounter [facility] Work Phone: Advance Directives No Advanced Directives Records FoundDocuments on File Type Date Recorded Patient Underwriting Specialist Expl anation ACP-Advance Directive ACP-Power of Gaming Floor Supervisor Latest Code Status on File Code Status Date Activated Date Inactivated Comments Full Code 01/25/2022 8:42 PM Full Code 01/25/2022 9:23 AM 01/25/2022 8:13 PM Summary Purpose Family History No Family History Records FoundNo Family History Records Found Additional Source Comments Source Comments (unrecognize d section and content) In the event this informatio n is protected by the Federal Confidentiality of Alcohol and Drug Abuse Patient Records regulations: The Federal rules restrict any use of the information to criminally investigate or prosecute any alcohol or drug abuse patient.[facility] Ordered Prescriptions (unrec ognized section and content) Scheduled Active and Recently Administ ered Medications (unrecognized section and content) Continuous Medication Order 01/25/2022 01/26/2022 01/27/2022 lactated ringers infusion (CANCELED) IntraVENous, at 75 mL/hr, CONTINUOUS, Starting on Sun01/25/22 at 2100 2202 (New Bag - Provider: Micah Singleton, HERNANDEZ) PRN Medication Order 01/25/2022 01/26/2022 01/27/2022 0.9 % sodium chloride infusion (CANCELED) IntraVENous, at 5-250 mL/hr, PRN, if patient receiving piggyback infusions and maintenance fluids are not ordered OR KVO fluids to protect IV site / prevent frequent line interruptions/ long duration, Starting on Sun01/25/22 at 0922, For piggyback infusion, administer at same rate as piggyback for a total of 25 mL. Enter 25 mL into dose field and piggyback rate into rate field of order. If piggyback is infusing at a rate less than 100 mL/hr, enter 25 mL into dose field and 100 mL/hr into rate field of order. For KVO fluids, enter rate of 20 mL/hr or less into rate field of order., Pre-op (day of surgery) 0948 (New Bag - Provider: Yvonne Mosehr RN) 1350 (Stopped - Provider: Gretchen Mcneil RN) 0.9 % sodium chloride infusion IntraVENous, at 5-250 mL/hr, PRN, if patient receiving piggyback infusions and maintenance fluids are not ordered OR KVO fluids to protect IV site / prevent frequent line interruptions/ long duration, Starting on Sun01/25/22 at 2042, For piggyback infusion, administer at same rate as piggyback for a total of 25 mL. Enter 25 mL into dose field and piggyback rate into rate field of order. If piggyback is infusing at a rate less than 100 mL/hr, enter 25 mL into dose field and 100 mL/hr into rate field of order. For KVO fluids, enter rate of 20 mL/hr or less into rate field of order. albuterol (PROVENTIL) nebulizer solution 2.5 mg 2.5 mg, Nebulization, EVERY 4 HOURS PRN, Starting on [place] 01/26/22 at 1255, Until Discontinued, Wheezing, Initiate RT Bronchodilator Protocol: Yes 1739 (Given - Provider: Natty Reeder RCP) 0928 (Given - Provider: Farzad Shanks RCP) hydrALAZINE (APRESOLINE) injection 10 mg 10 mg, IntraVENous, EVERY 4 HOURS PRN, Starting on Sun01/25/22 at 2041, Until Discontinued, High Blood Pressure, SBP > 160. Hold if HR > 100. Second line HYDROmorphone (DILAUDID) injection 0.25 mg(Linked Group 1) HYDROmorphone (DILAUDID) 1.5mg IV is equivalent to morphine 10mg IV, 0.25 mg, IntraVENous, EVERY 3 HOURS PRN, Starting on Sun01/25/22 at 204, Until Discontinued, Pain Moderate (4-6), If oral and IV narcotics ordered, use oral first and only use IV if oral is ineffective or cannot take oral. Do Not give oral and IV within 1 hour of each other unless specifically ordered. 2109 (See Alternative - Provider: Micah Singleton RN) HYDROmorphone (DILAUDID) injection 0.5 mg(Linked Group 1) HYDROmorphone (DILAUDID) 1.5mg IV is equivalent to morphine 10mg IV, 0.5 mg, IntraVENous, EVERY 3 HOURS PRN, Starting on Sun01/25/22 at 2041, Until Discontinued, Pain Severe (7-10), If oral and IV narcotics ordered, use oral first and only use IV if oral is ineffective or cannot take oral. Do Not give oral and IV within 1 hour of each other unless specifically ordered. 2109 (Given - Provider: Micah Singleton RN) labetalol (NORMODYNE;TRANDATE) injection 10 mg 10 mg, IntraVENous, EVERY 4 HOURS PRN, Starting on Sun01/25/22 at 2041, Until Discontinued, High Blood Pressure, SBP > 160. Hold if HR < 60. First line LORazepam (ATIVAN) injection 0.5 mg (COMPLETED) 0.5 mg, IntraVENous, EVERY 10 MIN PRN, 2 doses, Starting on Sun01/25/22 at 1755, Until Discontinued, Anxiety, Other, Discomfort, On arrival to PACU Post-Op, PACU only 1811 (Given - Provider: Bonnie Burris RN)1833 (Given - Provider: Bonnie Burris, HERNANDEZ) ondansetron (ZOFRAN) injection 4 mg(Linked Group 2) 4 mg, IntraVENous, EVERY 6 HOURS PRN, Starting on Sun01/25/22 at 2041, Until Discontinued, Nausea, Vomiting, Administer if oral route cannot be used. ondansetron (ZOFRAN-ODT) disintegrating tablet 4 mg(Linked Group 2) 4 mg, Oral, EVERY 8 HOURS PRN, Starting on Sun01/25/22 at 2041, Until Discontinued, Nausea, Vomiting oxyCODONE (ROXICODONE) immediate release tablet 10 mg(Linked Group 3) 10 mg, Oral, EVERY 4 HOURS PRN, Starting on Sun01/25/22 at 2041, Until Discontinued, Pain Severe (7-10) 0635 (Given - Provider: Micah Singleton RN)1050 (Given - Provider: Gretchen Mcneil RN)1546 (Given - Provider: Gretchen Mcneil RN)2127 (Given - Provider: Esperanza Mayes RN) 0928 (See Alternative - Provider: Gretchen Mcneil RN)1517 (Given - Provider: Gretchen Mcneil RN) oxyCODONE (ROXICODONE) immediate release tablet 5 mg(Linked Group 3) 5 mg, Oral, EVERY 4 HOURS PRN, Starting on Sun01/25/22 at 2041, Until Discontinued, Pain Moderate (4-6) 0635 (See Alternative - Provider: Micah Singleton RN)1050 (See Alternative - Provider: Gretchen Mcneil RN)1546 (See Alternative - Provider: Gretchen Mcneil RN)2127 (See Alternative - Provider: Esperanza Mayes RN) 0928 (Given - Provider: Gretchen Mcneil RN)1517 (See Alternative - Provider: Gretchen Mcneil RN) sodium chloride flush 0.9 % injection 5-40 mL 5-40 mL, IntraVENous, PRN, Starting on Sun01/25/22 at 2041, Until Discontinued, Line Care, After every IV line use, For Line Patency: Peripheral IV = 5 mL; Midline or Central Line = 10 mL/lumen. If following IV push medication, administer flush at same rate as the IV push. Flush volume is determined by type of infusion therapy being given. For non-viscous solutions use: Peripheral IV = 5 mL Midline or Central Line = 10 mL/lumen For viscous solutions (i.e. blood components, parenteral nutrition, contrast media, or after obtaining blood sample) use: Peripheral IV = 10 mL Midline or Central Line = 20 mL/lumen Linked Groups Order Group 1: HYDROmorphone (DILAUDID) injection 0.25 mgJump to med HYDROmorphone (DILAUDID) 1.5mg IV is equivalent to morphine 10mg IV
0.25 mg, IntraVENous, EVERY 3 HOURS PRN, Starting on Sun01/25/22 at 2041, Until Discontinued, Pain Moderate (4-6)
If oral and IV narcotics ordered, use oral first and only use IV if oral is ineffective or cannot take oral. Do Not give oral and IV within 1 hour of each other unless specifically ordered.
Or HYDROmorphone (DILAUDID) injection 0.5 mgJump to med HYDROmorphone (DILAUDID) 1.5mg IV is equivalent to morphine 10mg IV
0.5 mg, IntraVENous, EVERY 3 HOURS PRN, Starting on Sun01/25/22 at 2041, Until Discontinued, Pain Severe (7-10)
If oral and IV narcotics ordered, use oral first and only use IV if oral is ineffective or cannot take oral. Do Not give oral and IV within 1 hour of each other unless specifically ordered.
Group 2: ondansetron (ZOFRAN-ODT) disintegrating tablet 4 mgJump to med 4 mg, Oral, EVERY 8 HOURS PRN, Starting on Sun01/25/22 at 2041, Until Discontinued, Nausea, Vomiting Or ondansetron (ZOFRAN) injection 4 mgJump to med 4 mg, IntraVENous, EVERY 6 HOURS PRN, Starting on Sun01/25/22 at 2041, Until Discontinued, Nausea, Vomiting
Administer if oral route cannot be used.
Group 3: oxyCODONE (ROXICODONE) immediate release tablet 5 mgJump to med 5 mg, Oral, EVERY 4 HOURS PRN, Starting on Sun01/25/22 at 2041, Until Discontinued, Pain Moderate (4-6) Or oxyCODONE (ROXICODONE) immediate release tablet 10 mgJump to med 10 mg, Oral, EVERY 4 HOURS PRN, Starting on Sun01/25/22 at 2041, Until Discontinued, Pain Severe (7-10) Care Teams (unrecognized sec tion and content) (unrecognized sect ion and content) No Status Records FoundNo Status Records Found INFORMATION SOURCE (unrecogn ized section and content) DATE CREATED AUTHOR AUTHOR'S JOAQUÍNLOIS MELONY 07/25/2022 [facility] FOR RECORDS PERTAINING TO PATIENTS WHO ARE OR HAVE BEEN ENROLLED IN A CHEMICAL DEPENDENCY/SUBSTANCEABUSE PROGRAM, SOME INFORMATION MAY BE OMITTED. This clinical summary was aggregated from multiple sources. Caution should be exercised in using it in the provision of clinical care. This summary normalizes information from multiple sources, and as a consequence, information in this document may materially change the coding, format and clinical context of patient data. In addition, data may be omitted in some cases. CLINICAL DECISIONS SHOULD BE BASED ON THE PRIMARY CLINICAL RECORDS. [employer] provides no warranty or guarantee of the accuracy or completeness of information in this document.
[2023-08-22 13:25] LABS: CREATININE FINGERSTICK < 1.0 mg/dL (0.70-1.30); EGFR FINGERSTICK > 60.0000 mL/min (>60)
== END | disposition home or self-care (01) ==
LOC: CT 12:45
PROVIDERS: PCP Internal Medicine; Referring Provider Internal Medicine Hematology & Oncology; Visit Provider Internal Medicine Hematology & Oncology
DX: C34.31 Malignant neoplasm of lower lobe, right bronchus or lung (principal)
CPT/HCPCS: 71260; 74160; Q9967

== ENCOUNTER → 2023-11-27 | Outpatient (CLI) | payer MEDICARE, OTHER, SELFPAY ==
--- NOTE | 2023-11-27 12:40 | ECHOCS_ITS ---
Reason For Study: ASHD/CAD Procedure This was a 2D Doppler, Color Flow transthoracic echocardiogram. The study was technically difficult. Contrast injection was performed. Exam performed in department. Left Ventricle Normal LV size. The estimated ejection fraction is 35 %. Stage 1 diastolic dysfunction. Moderate segmental systolic dysfunction (see wall motion). There is moderate global hypokinesis of the left ventricle. Mid-Lateral : Akinetic. Lateral Theodore : Hypokinetic. Right Ventricle Normal RV size. Normal systolic function. Atria Normal left atrium. Normal right atrium. Mitral Valve Normal mitral valve. Tricuspid Valve Normal tricuspid valve. Aortic Valve The aortic valve is not well visualized. Great Vessels Normal aortic root. The pulmonary artery is normal size. Normal inferior vena cava. Pericardium/Pleural No pericardial effusion. Medication 22 gauge I.V. with prn adaptor inserted into right arm. Diluted definity 3ml given slow IV push to enhance endocardial definition. MMode/2D Measurements & Calculations LVIDd: 5.2 cm IVSd: 0.74 cm LA dimension: 3.2 cm LVIDs: 4.6 cm LVPWd: 0.90 cm RVDd: 3.7 cm FS: 11.1 % LAV(MOD-bp): 43.4 ml LVAd ap4: 35.3 cm2 SV(MOD-sp4): 40.7 ml LAV(MOD-bp) Indexed: 21.8 ml/m2 LVLd ap4: 8.4 cm LAV(MOD-sp2): 43.0 ml EDV(MOD-sp4): 123.5 ml LAV(MOD-sp4): 45.3 ml EDV(sp4-el): 125.6 ml LVAs ap4: 26.7 cm2 LVLs ap4: 7.4 cm ESV(MOD-sp4): 82.8 ml ESV(sp4-el): 81.6 ml EF(MOD-sp4): 32.9 % EF(sp4-el): 35.1 % SV(sp4-el): 44.0 ml LA A4 area: 17.5 cm2 RA A4 area: 16.3 cm2 TAPSE: 1.2 cm Time Measurements MV dec time: 0.39 sec Doppler Measurements & Calculations MV E max parviz: 49.1 cm/sec Lat Peak E' Parviz: 8.2 cm/sec Med Peak E' Parviz: 4.4 cm/sec MV A max parviz: 79.7 cm/sec E/E' lat: 6.0 E/E' med: 11.1 MV E/A: 0.62 MV V2 max: 94.4 cm/sec MV P1/2t max parviz: 64.3 cm/sec Ao V2 max: 127.6 cm/sec MV max P.6 mmHg MV P1/2t: 143.8 msec Ao max P.5 mmHg MV V2 mean: 43.1 cm/sec MV dec slope: 130.9 cm/sec2 Ao V2 mean: 83.5 cm/sec MV mean P.90 mmHg Ao mean P.3 mmHg MV V2 VTI: 30.2 cm MVA(P1/2t): 1.5 cm2 Ao V2 VTI: 27.4 cm AV (velocity ratio): 0.72 LV V1 max: 97.3 cm/sec PA V2 max: 82.3 cm/sec LV V1 max P.8 mmHg LV V1 mean P.8 mmHg LV V1 mean: 61.4 cm/sec LV V1 VTI: 19.8 cm ECHO/Echo Complete W/ Contrast Interpretation Summary Normal LV size. The estimated ejection fraction is 35 %. There is moderate global hypokinesis of the left ventricle. Stage 1 diastolic dysfunction. Moderate segmental systolic dysfunction (see wall motion). Contrast injection was performed. Ordering Physician: Maribeth Early Referring Physician: Connie Sun M.D. Performed By: Ovidio Crane RCS
== END | disposition home or self-care (01) ==
LOC: CVS 12:39
PROVIDERS: PCP Internal Medicine; Referring Provider Physician Assistant Medical; Visit Provider Physician Assistant Medical
DX: I25.10 Atherosclerotic heart disease of native coronary artery without angina pectoris (principal); I25.5 Ischemic cardiomyopathy
CPT/HCPCS: 93306; Q9957; A4216; C8929

== ENCOUNTER 2023-12-06 15:18 | Inpatient (IN) | payer MEDICARE, OTHER, SELFPAY ==
[2023-12-06] VITALS (9 sets, daily range): BP systolic 86–124; BP diastolic 47–98; PULSE 68–113; RESP 7–18; TEMP 36–36.6; O2SAT 93–100; BMI 27.2; BMI 27.3
--- NOTE | 2023-12-06 16:48 | EX.ED.DYSGE1 ---
HPI History of Present Illness Chief Complaint: Hyperglycemia Informant: patient Narrative Narrative: Patient presents secondary to abnormal blood work. Patient went for his routine follow-up with oncology today. They noted that he had lost 20 pounds in the last 3 months and he was complaining of increased thirst and urination for the past 2 weeks. He was sent for lab work which indicated a blood sugar of 945 with a BUN of 39 and creatinine 2.21. Patient has no known history of diabetes. Patient was treated for lung cancer with chemotherapy completed in 2021. He currently is seen every [address] scan and follow-up visit. [facility] Medical History (Updated 12/06/23 @ 19:[address] Natty Bowling MD) Anemia Atherosclerotic heart disease of [place] coronary artery without angina pectoris Bradycardia Cancer of lower lobe of right lung Cardiology follow-up encounter Chronic systolic congestive heart failure CINV (chemotherapy-induced nausea and vomiting) Dehydration Diarrhea Drug induced neutropenia Encounter for chemotherapy management Encounter for education Essential hypertension Former smoker Hiccups History of echocardiogram History of stress test Hyperlipidemia Hypokalemia Ischemic cardiomyopathy Kidney stones Leg pain, bilateral Non-ST elevated myocardial infarction (non-STEMI) (~11/2015) Old myocardial infarction Preoperative cardiovascular examination Presence of stent in coronary artery (~11/30/15) Restless leg Tobacco use Weakness Wears dentures Home Medications aspirin 81 mg tablet,delayed release 81 mg PO DAILY@0800 [facility] 12/03/15 [History Last Taken 04/09/22] nitroglycerin 0.4 mg sublingual tablet 0.4 mg sublingual Q5M PRN Chest Pain #25 tabs 07/31/22 [Rx Last Taken Unknown] atorvastatin 40 mg tablet 40 mg PO QHS #90 tabs 10/24/23 [Rx Last Taken Unknown] lisinopril 5 mg tablet 5 mg PO DAILY #90 tabs 10/24/23 [Rx Last Taken Unknown] metoprolol tartrate 25 mg tablet 25 mg PO BID #180 tabs 10/24/23 [Rx Last Taken Unknown] dapagliflozin propanediol 10 mg tablet (Farxiga) 10 mg PO QAM #30 tabs 11/28/23 [Rx Last Taken Unknown] spironolactone 25 mg tablet 25 mg PO DAILY #30 tabs 11/28/23 [Rx Last Taken Unknown] omeprazole 20 mg tablet,delayed release 20 mg PO DAILY 12/06/23 [History Last Taken Unknown] Allergy/AdvReac Type Severity Reaction Status Date / Time No Known Allergies Allergy Verified 12/06/23 15:19 Family History Grandfather CAD (coronary artery disease) Brother Cancer Surgical History History of bronchoscopy History of coronary artery stent placement Presence of coronary angioplasty implant and graft (~11/30/15) S/P right rotator cuff repair Status post lobectomy of lung Social History Smoking Status: Former smoker quit date: 12/05/21 Tobacco: How many years used: 45 how long ago did patient quit smoking: smoked 0.1amcu04 years, more when he was working alcohol intake: never substance use type: does not use caffeine: Yes Type: carbonated beverages Number of servings: 2 what type of physical activity do you participate in: none seatbelt use: always do you feel safe at home: Yes ROS ROS ED Constitutional Constitutional ED: Denies chills or fever(s) Eyes Eyes: Denies change in vision or discharge from eye(s) ENT ENT ED: Denies discharge from eye(s), rhinorrhea or sore throat Cardiovascular Cardiovascular: Denies chest pain or palpitations Respiratory/Chest Respiratory/Chest: Denies cough or dyspnea Gastrointestinal Gastrointestinal: Denies abdominal pain, diarrhea, nausea or vomiting Genitourinary Genitourinary ED: Reports urinary frequency; Denies dysuria Musculoskeletal Musculoskeletal: Denies back pain or extremity pain Integumentary Denies Abrasions or rash Neurologic Neurologic: Denies headache(s) or weakness Psychiatric Psychiatric: Denies anxiety or depression Endocrine Endocrinology: Reports polydipsia and polyuria Allergic/Immunologic Allergic/Immunologic ED: Denies lip swelling or urticaria EXAM Physical Exam Const Vital Signs: 12/06/23 15:20 12/06/23 16:35 12/06/23 17:56 Temperature 96.8 F L Temperature Source Temporal Pulse Rate 79 68 Respiratory Rate 18 7 L Respiratory Effort Normal Non-Labored Respiratory Pattern Normal Blood Pressure 113/74 124/74 H Blood Pressure Mean 87 90 Pulse Ox 93 93 Oxygen Delivery Method Room Air Room Air 12/06/23 18:43 Temperature Temperature Source Pulse Rate 73 Respiratory Rate 11 L Respiratory Effort Respiratory Pattern Blood Pressure 109/71 Blood Pressure Mean 83 Pulse Ox 98 Oxygen Delivery Method Room Air Positive well nourished and well developed General Appearance ED: well developed HEENT Reports dry mucous membranes Mouth ED: Yes dry mucous membranes Mouth: dry mucous membranes Eyes EOMs intact bilaterally Chest Wall inspection of chest normal and palpation of chest normal Resp normal respiratory effort and clear to auscultation bilaterally Cardio regular rate and regular rhythm GI non-tender Auscultation: hypoactive bowel sounds Palpation: soft Extremity normal to inspection Neuro oriented x3 and no sensory deficits noted Motor Exam: strength 5/5 throughout Psych mental status grossly normal Skin no rashes or lesions noted MDM MDM MDM Narrative Medical decision making narrative: Lab work from earlier today is reviewed. IV line will be established and we will repeat the BMP and add a hemoglobin A1c. Patient is initially ordered 2 L of IV fluid. History & Record Review Discussion w/independent historian: Patient and Significant other Additional record(s) reviewed:: Prior labs Lab Data Labs: Laboratory Results - last 24 hr 12/06/23 12/06/23 16:53 17:43 Sodium Cancelled 118 L* Potassium Cancelled 6.6 H* Chloride Cancelled 86 L Carbon Dioxide Cancelled 22.0 Anion Gap Cancelled 10 BUN Cancelled 42 H Creatinine Cancelled 1.79 H Estim Creat Clear Calc Cancelled 38.47 Est GFR (MDRD) Af Amer Cancelled 49 L Est GFR (MDRD) Non-Af Cancelled 41 L BUN/Creatinine Ratio Cancelled 23.5 H Glucose Cancelled 776 H* Hemoglobin A1c 12.1 H Calcium Cancelled 10.2 H Treatment and Re-Evaluation :: Hemoglobin A1c returns elevated at 12.1. Chemistry studies reveal a glucose of 776 with a sodium of 118. Potassium is elevated at 6.6 with no reported hemolysis. BUN is 42 and creatinine is 1.79. Patient is given 10 units of insulin IV for hyperkalemia as well as albuterol. Kayexalate was ordered, however he was unable to tolerate this orally. Patient is currently finishing up his 2 L normal saline. I was notified by nursing staff that the patient's blood sugar is currently 451. This is after receiving 2 units of normal saline as well as 10 units IV insulin for his hyperkalemia. I will speak with hospitalist regarding admission. Discharge Plan Dx/Rx/DC Orders Clinical Impression: Hyperglycemia, Diabetes mellitus, new onset, Hyperkalemia Disposition Disposition: Acute Care Hospital [facility]
[2023-12-06 17:23] LABS: Hemoglobin A1c 12.1 % (3.8-5.6)
[2023-12-06] MEDS: 0.9% Normal Saline (1000mL) 1,000 ML 1000 ML IV ×2 (17:52→18:29)
--- NOTE | 2023-12-06 17:56 | ED.RN ---
vitals late d/t level of care required to other pt's on my team
[2023-12-06 18:42] LABS: Anion Gap 10 (5-15); BUN 42 mg/dL (7-18); BUN/Creat Ratio 23.5 RATIO (10-20); Calcium,Total 10.2 mg/dL (8.5-10.1); Chloride 86 mmol/L (98-107); Creatinine, Serum 1.79 mg/dL (0.70-1.30); EST Glomerular Filtration Rate 41 mL/min (>60); Est Glom Filt Rate - Afr Amer 49 mL/min (>60); Estimated Creatinine Clearance 38.47 ml/min; Glucose 776 mg/dL (74-106); Potassium 6.6 mmol/L (3.5-5.1); Sodium Level 118 mmol/L (136-145)
--- NOTE | 2023-12-06 18:43 | EKG12_ITS ---
Test Reason : DYSRHYTHMIA Blood Pressure : / mmHG Vent. Rate : 091 BPM Atrial Rate : 077 BPM P-R Int : 142 ms QRS Dur : 084 ms QT Int : 392 ms P-R-T Axes : 051 043 082 degrees QTc Int : 482 ms Sinus rhythm with Premature supraventricular complexes and with occasional Premature ventricular comp lexes Low voltage QRS Prolonged QT Abnormal ECG Confirmed by KIMBERLI TRACEY, NAIDA ([id number]), health editor PILLO ROPER ([id number]) on 12/10/2023 10:34:18 AM Referred By: Confirmed By:GONZÁLEZ AG MD
[2023-12-06] MEDS: Sodium Polystyrene Sulfonate 15 GM/60 ML UDC PO (19:01)
[2023-12-06] MEDS: Albuterol 2.5 MG/3 ML VIAL.NEB. 10 MG INHALATION (19:01)
[2023-12-06] MEDS: Insulin Lispro 10 UNIT in Syringe 0 ML 6 UNIT IV (19:02)
[2023-12-06] MEDS: 0.9% Normal Saline (1000mL) 1,000 ML 150 ML IV (19:56)
[2023-12-06 20:11] LABS: Bedside Glucose 451 mg/dL (74-106)
--- NOTE | 2023-12-06 20:28 | HP.PCM.HOS_ITS ---
HPI - General General Date of Admission: 12/06/23 Date of Service: 12/06/23 Chief Complaint: New onset diabetes mellitus with severe hyperglycemia HPI Narrative KATARINA MELGOZA, is a 67 M who presented to [facility] ED on 12/06/19 with concern for new onset diabetes with severe hyperglycemia. Patient saw his oncologist Dr. Gallagher on the morning of 12/05 for an office visit, has history of lung cancer with left lower lobe lobectomy and chemotherapy completed in 2021, cancer remains in remission. He noted to Dr. Gallagher that he had lost about 20 pounds in the last several weeks and had significant increased thirst and urination over that timeframe. He had labs drawn there that showed a blood sugar of 945 as well as an RADHA, so he was sent to the ED for further evaluation. He notably had no anion gap on his labs, no concern for DKA. Had significant pseudohyponatremia and RADHA with hyperkalemia with potassium 6.6. Labs were otherwise fairly benign. Patient did have mild hypotension in the ED. Was given significant volume resuscitation in the ED as well as a dose of Humalog subcu with with improvement in his blood pressure and blood sugar level. He was then admitted for further management. Patient denies any history of diabetes or prediabetes that he is aware of. He denies any abdominal pain or discomfort. No other acute concerns at this time. [facility] Medical History Anemia Atherosclerotic heart disease of [place] coronary artery without angina pectoris Bradycardia Cancer of lower lobe of right lung Cardiology follow-up encounter Chronic systolic congestive heart failure CINV (chemotherapy-induced nausea and vomiting) Dehydration Diarrhea Drug induced neutropenia Encounter for chemotherapy management Encounter for education Essential hypertension Former smoker Hiccups History of echocardiogram History of stress test Hyperlipidemia Hypokalemia Ischemic cardiomyopathy Kidney stones Leg pain, bilateral Non-ST elevated myocardial infarction (non-STEMI) (~11/2015) Old myocardial infarction Preoperative cardiovascular examination Presence of stent in coronary artery (~11/30/15) Restless leg Tobacco use Weakness Wears dentures Home Medications aspirin 81 mg tablet,delayed release 81 mg PO DAILY@0800 heart health 12/03/15 [History Last Taken 04/09/22] nitroglycerin 0.4 mg sublingual tablet 0.4 mg sublingual Q5M PRN Chest Pain #25 tabs 07/31/22 [Rx Last Taken Unknown] atorvastatin 40 mg tablet 40 mg PO QHS #90 tabs 10/24/23 [Rx Last Taken Unknown] lisinopril 5 mg tablet 5 mg PO DAILY #90 tabs 10/24/23 [Rx Last Taken Unknown] metoprolol tartrate 25 mg tablet 25 mg PO BID #180 tabs 10/24/23 [Rx Last Taken Unknown] dapagliflozin propanediol 10 mg tablet ([place]) 10 mg PO QAM #30 tabs 11/28/23 [Rx Last Taken Unknown] spironolactone 25 mg tablet 25 mg PO DAILY #30 tabs 11/28/23 [Rx Last Taken Unknown] omeprazole 20 mg tablet,delayed release 20 mg PO DAILY 12/06/23 [History Last Taken Unknown] Allergy/AdvReac Type Severity Reaction Status Date / Time No Known Allergies Allergy Verified 12/06/23 15:19 Family History Grandfather CAD (coronary artery disease) Brother Cancer Surgical History History of bronchoscopy History of coronary artery stent placement Presence of coronary angioplasty implant and graft (~11/30/15) S/P right rotator cuff repair Status post lobectomy of lung Social History Smoking Status: Former smoker quit date: 12/05/21 Tobacco: How many years used: 45 how long ago did patient quit smoking: smoked [id number] years, more when he was working alcohol intake: never substance use type: does not use caffeine: Yes Type: carbonated beverages Number of servings: 2 what type of physical activity do you participate in: none seatbelt use: always do you feel safe at home: Yes ROS Constitutional Constitutional: Reports change in weight and fatigue; Denies chills, fever(s) or weakness Eyes Eyes: Denies change in vision Cardiovascular Cardiovascular: Denies chest pain, lightheadedness or palpitations Respiratory/Chest Respiratory/Chest: Denies cough, shortness of breath at rest or wheezing Gastrointestinal Gastrointestinal: Reports nausea; Denies abdominal pain, constipation, diarrhea or vomiting Genitourinary Genitourinary: Reports urinary frequency; Denies dysuria Neurologic Neurologic: Denies dizziness or focal weakness Vital Signs Vital Signs Vital Signs: 12/06/23 15:20 12/06/23 16:35 12/06/23 17:56 Temperature 96.8 F L Temperature Source Temporal Pulse Rate 79 68 Respiratory Rate 18 7 L Respiratory Effort Normal Non-Labored Respiratory Pattern Normal Blood Pressure 113/74 124/74 H Blood Pressure Mean 87 90 Pulse Ox 93 93 Oxygen Delivery Method Room Air Room Air 12/06/23 18:43 12/06/23 19:58 12/06/23 19:01 Temperature 97.9 F Temperature Source Pulse Rate 73 113 H 99 Respiratory Rate 11 L 18 18 Respiratory Effort Respiratory Pattern Normal Blood Pressure 109/71 111/73 Blood Pressure Mean 83 85 Pulse Ox 98 98 Oxygen Delivery Method Room Air Weight Weight: 78.925 kg Body Mass Index (BMI) 27.2 Physical Exam Const alert, oriented x3, no apparent distress and average body habitus Constitutional Narrative: Pleasant middle-age male, overweight, otherwise sitting up comfortably in bed, conversing normally, in no acute distress. General Appearance: cooperative and comfortable HEENT normocephalic, head/scalp atraumatic, hearing grossly normal bilaterally and nasal mucous membranes and turbinates normal Eyes PERRL, EOMs intact bilaterally and conjunctivae normal Neck full ROM Chest inspection of chest normal Resp normal respiratory effort, normal air movement, no use of accessory muscles and clear to auscultation bilaterally Cardio regular rate, regular rhythm, no murmurs and peripheral pulses 2+ throughout GI normal to inspection, nondistended, normoactive bowel sounds, soft to palpation, non-tender and non-distended Back/Spine normal ROM Extremity normal to inspection, full ROM and no pedal edema Skin no rashes or lesions noted Neuro moves all extremities and no focal motor deficits Speech: speech normal Psych mental status grossly normal Results Lab / Micro Data 12/06/23 17:43 Labs: Laboratory Results - last 24 hr 12/06/23 16:53: Sodium Cancelled, Potassium Cancelled, Chloride Cancelled, Carbon Dioxide Cancelled, Anion Gap Cancelled, BUN Cancelled, Creatinine Cancelled, Estim Creat Clear Calc Cancelled, Est GFR (MDRD) Af Amer Cancelled, Est GFR (MDRD) Non-Af Cancelled, BUN/Creatinine Ratio Cancelled, Glucose Cancelled, Hemoglobin A1c 12.1 H, Calcium Cancelled 12/06/23 17:43: Sodium 118 L*, Potassium 6.6 H*, Chloride 86 L, Carbon Dioxide 22.0, Anion Gap 10, BUN 42 H, Creatinine 1.79 H, Estim Creat Clear Calc 38.47, Est GFR (MDRD) Af Amer 49 L, Est GFR (MDRD) Non-Af 41 L, BUN/Creatinine Ratio 23.5 H, Glucose 776 H*, Calcium 10.2 H 12/06/23 19:51: POC Glucose 451 H* Assessment & Plan Assessment/Plan (1) Diabetes mellitus, new onset: (2) Hyperkalemia: PLAN: Plan Patient is a 67-year-old male who presented to [facility] ED on 12/06/2023 with concern for new onset diabetes with severe hyperglycemia. 1. New onset diabetes mellitus with severe hyperglycemia, recent weight loss, a cute dehydration ? Admit under inpatient status to PCU. Blood sugar over 900 on admit, no anion gap, no concern for DKA. A1c 12.1%. Has had significant improvement in blood sugars with Humalog subcu and IV fluid resuscitation. Will start Lantus 15 units at night, Humalog 5 units with meals plus sliding scale insulin, adjust as needed. Continue IV fluid resuscitation through morning of 12/06. Monitor closely. 2. Hyperkalemia ? Potassium 6.6 on admit. No EKG changes noted. Suspect due to RADHA from dehydration and worsened by home lisinopril and spironolactone. Given significant fluid resuscitation and insulin as noted above. Follow-up a.m. BMP. Holding home lisinopril and spironolactone. 3. RADHA ? Creatinine 2.21 on admit. Suspect prerenal RADHA due to dehydration. IV fluid resuscitation as noted above. Follow-up a.m. BMP and urine output. 4. Pseudohyponatremia ? Sodium 118 on admit, corrected sodium 132. IV fluid resuscitation on admission as noted above. Follow-up a.m. BMP. Chronic medical conditions: ? History of CAD with stenting, HFrEF with ischemic cardiomyopathy, HTN, HPL: Follows with [facility]. Recent echo on 11/26 showed EF 35%, stage I diastolic dysfunction, moderate segmental LV dysfunction similar to previous. Continue home aspirin, statin and beta-rolanda. Holding home lisinopril, spironolactone and dapagliflozin. ? History of lung cancer s/p LLL lobectomy and chemotherapy: Follows with outpatient oncology. Intermission. ? GERD: Continue home PPI. DVT prophylaxis: Heparin subcu CODE STATUS: Full code, verified Expected disposition: Home, 2 to 3 days Total clinical time spent by myself addressing the patient's medical issues, re viewing all the data, and collaborating with patient's care team: 55 minutes. Charges/Coding Visit Charges Inpatient E&M: 75043 Init Hosp L2
[2023-12-06] MEDS: Atorvastatin Calcium 40 MG Tablet PO (22:56)
[2023-12-06] MEDS: Metoprolol Tartrate 25 MG Tablet PO (22:57)
[2023-12-06] MEDS: Insulin Glargine-YFGN 100 UNIT/ML Pen 15 UNIT SC (22:57)
[2023-12-06] MEDS: Heparin Injection (Vial) 5,000 UNIT/ML VIAL 5000 UNIT SC (22:57)
[2023-12-06] MEDS: 0.9% Saline Lock 10 ML Syringe IV (22:57)
[2023-12-06] MEDS: Insulin Lispro 100 UNIT/ML INSULN.PEN SC (23:04)
[2023-12-06 23:15] LABS: Bedside Glucose 312 mg/dL (74-106)
[2023-12-07 03:32] LABS: Bedside Glucose 197 mg/dL (74-106)
[2023-12-07 04:00] VITALS: BP 100/73; PULSE 70; RESP 18; TEMP 36.2; O2SAT 98
[2023-12-07] MEDS: 0.9% Normal Saline (1000mL) 1,000 ML 150 ML IV (05:12)
[2023-12-07 06:54] LABS: Hematocrit 39.4 % (40-54); Hemoglobin 13.4 g/dL (13.0-16.5); Mean Corpuscular Hgb 32.1 pg (27.0-32.0); Mean Corpuscular Volume 94.3 fL (80-94); Platelet Count 196 K/mm3 (150-450); RBC Distribution Width CV 12.8 % (11.6-14.6); RBC Distribution Width SD 44.3 fl (35.1-43.9); Red Blood Count 4.18 M/mm3 (4.6-6.2); White Blood Count 9.2 K/mm3 (4.4-11.0)
[2023-12-07 07:08] LABS: Anion Gap 7 (5-15); BUN 24 mg/dL (7-18); BUN/Creat Ratio 23.1 RATIO (10-20); Calcium,Total 8.6 mg/dL (8.5-10.1); Chloride 108 mmol/L (98-107); Creatinine, Serum 1.04 mg/dL (0.70-1.30); EST Glomerular Filtration Rate 76 mL/min (>60); Est Glom Filt Rate - Afr Amer 92 mL/min (>60); Estimated Creatinine Clearance 66.21 ml/min; Glucose 168 mg/dL (74-106); Potassium 4.2 mmol/L (3.5-5.1); Sodium Level 138 mmol/L (136-145)
[2023-12-07] MEDS: Glucerna Shake 120 ML LIQUID PO ×2 (08:24→12:17)
[2023-12-07] MEDS: Aspirin E.C. 81 MG Tablet PO (08:24)
[2023-12-07 08:32] VITALS: BP 128/78; PULSE 62; RESP 16; TEMP 36.8; O2SAT 99
--- NOTE | 2023-12-07 09:04 | PCM.PN.HOSP ---
Reason for Visit Reason for Visit: Diagnoses Type 2 diabetes mellitus without complications (12/06/23) Hyperkalemia (12/06/23) Objective Data Objective Data Vital Signs: Vital Signs Temp Pulse Resp BP Pulse Ox O2 Del Method 98.3 F 62 16 128/78 H 99 Room Air 12/07/23 08:32 12/07/23 08:32 12/07/23 08:32 12/07/23 08:32 12/07/23 08:32 12/07/23 08:32 Oxygen Delivery Method Room Air Weight: 174 lb 13.225 oz Body Mass Index (BMI) 27.3 Intake & Output: Intake and Output for Last 24 Hours 12/05/23 12/06/23 12/07/23 23:59 23:59 23:59 Intake Total 3000 / 3300 300 / 300 Output Total 630 / 630 Balance 3000 / 3300 -330 / -330 Lab / Micro Data 12/07/23 06:38 12/07/23 06:38 Labs: Laboratory Results - last 24 hr Hemoglobin A1c 12.1 H, 12/06/23 17:43: Sodium 118 L*, Potassium 6.6 H*, Chloride 86 L, Carbon Dioxide 22.0, Anion Gap 10, BUN 42 H, Creatinine 1.79 H, Estim Creat Clear Calc 38.47, Est GFR (MDRD) Af Amer 49 L, Est GFR (MDRD) Non-Af 41 L, BUN/Creatinine Ratio 23.5 H, Glucose 776 H*, Calcium 10.2 H 12/06/23 19:51: POC Glucose 451 H* 12/06/23 22:37: POC Glucose 312 H 12/07/23 03:13: POC Glucose 197 H 12/07/23 06:38: WBC 9.2, RBC 4.18 L, Hgb 13.4, Hct 39.4 L, MCV 94.3 H, MCH 32.1 H, MCHC 34.0, RDW Std Deviation 44.3 H, RDW Coeff of Favio 12.8, Plt Count 196, MPV 12.0, Sodium 138, Potassium 4.2, Chloride 108 H, Carbon Dioxide 23.0, Anion Gap 7, BUN 24 H, Creatinine 1.04, Estim Creat Clear Calc 66.21, Est GFR (MDRD) Af Amer 92, Est GFR (MDRD) Non-Af 76, BUN/Creatinine Ratio 23.1 H, Glucose 168 H, Calcium 8.6 Assessment & Plan Assessment/Plan (1) Diabetes mellitus, new onset: (2) Hyperkalemia: PLAN: Plan Patient is a 67-year-old male who presented to [facility] ED on 12/06/2023 with concern for new onset diabetes with severe hyperglycemia. 1. New onset diabetes mellitus with severe hyperglycemia, recent weight loss, acute dehydration ? Admit under inpatient status to PCU. Blood sugar over 900 on admit, no anion gap, no concern for DKA. A1c 12.1%. Has had significant improvement in blood sugars with Humalog subcu and IV fluid resuscitation. Will start Lantus 15 units at night, Humalog 5 units with meals plus sliding scale insulin, adjust as needed. Continue IV fluid resuscitation through morning of 12/06. Monitor closely. 2. Hyperkalemia ? Potassium 6.6 on admit. No EKG changes noted. Suspect due to RADHA from dehydration and worsened by home lisinopril and spironolactone. Given significant fluid resuscitation and insulin as noted above. Follow-up a.m. BMP. Holding home lisinopril and spironolactone. Hemoglobin A1c 12.1 H, 12/06/23 17:43: Sodium 118 L*, Potassium 6.6 H*, Chloride 86 L, Carbon Dioxide 22.0, Anion Gap 10, BUN 42 H, Creatinine 1.79 H, Estim Creat Clear Calc 38.47, Est GFR (MDRD) Af Amer 49 L, Est GFR (MDRD) Non-Af 41 L, BUN/Creatinine Ratio 23.5 H, Glucose 776 H*, Calcium 10.2 H 12/06/23 19:51: POC Glucose 451 H* 12/06/23 22:37: POC Glucose 312 H 12/07/23 03:13: POC Glucose 197 H 12/07/23 06:38: WBC 9.2, RBC 4.18 L, Hgb 13.4, Hct 39.4 L, MCV 94.3 H, MCH 32.1 H, MCHC 34.0, RDW Std Deviation 44.3 H, RDW Coeff of Favio 12.8, Plt Count 196, MPV 12.0, Sodium 138, Potassium 4.2, Chloride 108 H, Carbon Dioxide 23.0, Anion Gap 7, BUN 24 H, Creatinine 1.04, Estim Creat Clear Calc 66.21, Est GFR (MDRD) Af Amer 92, Est GFR (MDRD) Non-Af 76, BUN/Creatinine Ratio 23.1 H, Glucose 168 H, Calcium 8.6 3. RADHA ? Creatinine 2.21 on admit. Suspect prerenal RADHA due to dehydration. IV fluid resuscitation as noted above. Follow-up a.m. BMP and urine output. 4. Pseudohyponatremia ? Sodium 118 on admit, corrected sodium 132. IV fluid resuscitation on admission as noted above. Follow-up a.m. BMP. Chronic medical conditions: ? History of CAD with stenting, HFrEF with ischemic cardiomyopathy, HTN, HPL: Follows with [facility]. Recent echo on 11/26 showed EF 35%, stage I diastolic dysfunction, moderate segmental LV dysfunction similar to previous. Continue home aspirin, statin and beta-rolanda. Holding home lisinopril, spironolactone and dapagliflozin. ? History of lung cancer s/p LLL lobectomy and chemotherapy: Follows with outpatient oncology. Saw oncologist Dr. Gibson on 11/14/24. ? GERD: Continue home PPI. DVT prophylaxis: Heparin subcu CODE STATUS: Full code, verified Expected disposition: Home, 2 to 3 days Total clinical time spent by myself addressing the patient's medical issues, reviewing all the data, and collaborating with patient's care team: 55 minutes.
[2023-12-07] MEDS: Insulin Lispro 100 UNIT/ML INSULN.PEN SC ×4 (09:19→12:11)
[2023-12-07 09:27] LABS: Bedside Glucose 211 mg/dL (74-106)
[2023-12-07 09:32] VITALS: PULSE 62
[2023-12-07] MEDS: Metoprolol Tartrate 25 MG Tablet PO (09:32)
[2023-12-07] MEDS: Pantoprazole Sodium 20 MG Tablet PO (09:32)
[2023-12-07] MEDS: Heparin Injection (Vial) 5,000 UNIT/ML VIAL 5000 UNIT SC (09:33)
--- NOTE | 2023-12-07 10:00 | DCINST_ITS ---
Discharge Instructions Diet Discharge Diet: Low fat / Low cholesterol and 1800 Calorie Control Diet Activity Discharge Activity: Return to Normal Activity Weight Bearing Status: Weight bearing as tolerated Dressing / Incision Call your doctor if you observe: Fever of 101 or Higher, Coldness, Increased Pain, Numbness or Tingling, Change in Color, Inability to urinate, Inability to have a bowel movement, Shortness of breath, Dizziness, Fainting spells, Swelling in the ankles, Chest pain, Prolonged hiccupping, Increased palpitations (irregular heartbeat) and Calf discomfort Follow Up Care When: IN 2 WEEKS Test Results: Test results from this visit will be discussed in further detail at your follow- up appointment, if applicable. Discharge Plan Admission Admit Date/Time: 12/06/23 21:40 Primary Reason for Your Visit: hyperglycemia, RADHA with hypertonic hyponatremia Attending Provider: Jonatan Keller Primary Care Provider: Connie Sun Consulting Providers: Olaf Salter Discharge Orders/Prescriptions Prescriptions: New insulin lispro [Humalog KwikPen Insulin] 100 unit/mL Insulin Pen See Protocol subcut ACHS Qty: 0 0RF Protocol: 4. Sliding Scale Insulin High-Med Dosing Condition: 150-199 mg/dl = 2 units Condition: 200-259 mg/dl = 4 units Condition: 260-324 mg/dl = 6 units Condition: 325-374 mg/dl = 8 units Condition: 375-409 mg/dl = 10 units Condition: 410-449 mg/dl = 11 units Condition: Greater than 449 call physician Protocol Text: - Use for Total Daily Dose of Insulin 56-80 units - Patient who are insulin resistant or septic HIGH MEDIUM DOSING ALGORITHM insulin glargine 100 unit/mL solution 15 unit subcut DAILY Qty: 10 5RF Rx Instructions: Hold if glucose less than 130 mg/dl insulin lispro [Humalog KwikPen Insulin] 100 unit/mL insulin pen 6 unit subcut TID Qty: 15 4RF Rx Instructions: Hold if glucose less than 130 mg/dl metformin 500 mg tablet 500 mg PO BID 30 Days Qty: 60 0RF Rx Instructions: Start from 12/10/2023 (DME) pen needle, diabetic 32 gauge x 1/6 needle See Rx Instructions .Route Qty: 100 1RF Rx Instructions: As directed Continued atorvastatin 40 mg tablet 40 mg PO QHS Qty: 90 4RF metoprolol tartrate 25 mg tablet 25 mg PO BID Qty: 180 3RF dapagliflozin propanediol [Farxiga] 10 mg tablet 10 mg PO QAM Qty: 30 6RF omeprazole 20 mg tablet,delayed release (DR/EC) 20 mg PO DAILY aspirin 81 MG tablet 81 mg PO DAILY@0800 nitroglycerin 0.4 mg tablet, sublingual 0.4 mg SUBLINGUAL Q5M PRN (Reason: Chest Pain) Qty: 25 3RF Rx Instructions: script never filled Held lisinopril 5 mg tablet 5 mg PO DAILY Qty: 90 4RF Hold Instructions: Hold for 3 days spironolactone 25 mg tablet 25 mg PO DAILY Qty: 30 6RF Hold Instructions: Hold for 5 days Referrals / Follow Up: Connie Sun MD [Primary Care Provider] - In 1 Week Disposition Disposition (needs filled in before D/C Order can be placed): Home, Self Care
--- NOTE | 2023-12-07 10:14 | PCM.DC.SUM ---
Providers Date of Admission: 12/06/23 Date of Discharge: 12/07/23 Primary Care Physician: Dr. Connie Sun MD Reason For Visit: SEVERE HYPERGLYCEMIA WITH DEHYDRATION Diagnosis Discharge Diagnosis (1) Diabetes mellitus, new onset: Status: Acute Code(s): E11.9 - Type 2 diabetes mellitus without complications (2) Hyperkalemia: Status: Acute Code(s): E87.5 - Hyperkalemia Plan Patient is a 67-year-old male who presented to [facility] ED on 12/06/2023 with concern for new onset diabetes with severe hyperglycemia. Found severe hypoglycemia in oncology office, sent to ED and then admitted because of hyperglycemia 1. New onset diabetes mellitus with severe hyperglycemia, recent weight loss, acute dehydration ? Admit under inpatient status to PCU. Blood sugar 945 mg/dL on admit, no anion gap, no concern for DKA. A1c 12.1%. Has had significant improvement in blood sugars with Humalog subcu and IV fluid resuscitation. Will start Lantus 15 units at night, Humalog 5 units with meals plus sliding scale insulin, adjust as needed. Continue IV fluid resuscitation through morning of 12/06. 12/06: Patient glucose came down with fasting blood sugar 168 on Lantus 15 units at night. A1c 12.1 %. With that high blood sugar it was decided to do discharged with insulin and discussed with the patient and his near the bedside and they agreed. Patient discharged on 15 units of Basaglar insulin at bedtime daily and 6 units of Fiasp insulin 3 times daily with meal along with Accu-Chek ACHS and sliding scale coverage. Advised to follow-up PCP in 1 week as he may need up titration of insulin. Glucometer insulin needle and other supplies prescriptions given. 2. Hyperkalemia ? Potassium 6.6 on admit. No EKG changes noted. Suspect due to RADHA from dehydration and worsened by home lisinopril and spironolactone. Given significant fluid resuscitation and insulin as noted above. Follow-up a.m. BMP. Holding home lisinopril and spironolactone. 12/06: It was related to hyperglycemia and RADHA. Repeat labs shows normal potassium 4.2. Hyperkalemia resolved. 3. RADHA ? Creatinine 2.21 on admit. Suspect prerenal RADHA due to dehydration. IV fluid resuscitation as noted above. Follow-up a.m. BMP and urine output. 12/06: Prerenal due to from hyperglycemia. 4. Pseudohyponatremia/hypertonic hyponatremia from hyperglycemia ? Sodium 118 on admit, corrected sodium 132. IV fluid resuscitation on admission as noted above. On repeat lab in the morning shows sodium 138. IV fluid discontinued. Hyponatremia resolved Chronic medical conditions: ? History of CAD with stenting, HFrEF with ischemic cardiomyopathy, HTN, HPL: Follows with [facility]. Recent echo on 11/26 showed EF 35%, stage I diastolic dysfunction, moderate segmental LV dysfunction similar to previous. Continue home aspirin, statin and beta-rolanda. Holding home lisinopril, spironolactone and dapagliflozin. ? History of lung cancer s/p LLL lobectomy and chemotherapy: Follows with outpatient oncology. Saw oncologist Dr. Gibson on 11/14/24. ? GERD: Continue home PPI. DVT prophylaxis: Heparin subcu CODE STATUS: Full code, verified Patient was admitted as inpatient due to dehydration, hyperglycemia, severe hyponatremia and RADHA but was discharged early because clinically symptoms got resolved and labs also improved. Because of sooner recovery than expected at time of admission patient is being discharged. Discharge medication reconciliation done. Discharge follow-up instructions completed. Discharge process discussed with the patient and all questions were answered to patient's satisfaction. Follow with PCP in 1 to 2 weeks Total time spent, exact 35 minutes on discharge meds reconciliation, examination, coordination of care with nurses and ancillary staff, review of imaging and blood test and discussion with the patient on follow-up instructions. Hemoglobin A1c 12.1 H, 12/06/23 17:43: Sodium 118 L*, Potassium 6.6 H*, Chloride 86 L, Carbon Dioxide 22.0, Anion Gap 10, BUN 42 H, Creatinine 1.79 H, Estim Creat Clear Calc 38.47, Est GFR (MDRD) Af Amer 49 L, Est GFR (MDRD) Non-Af 41 L, BUN/Creatinine Ratio 23.5 H, Glucose 776 H*, Calcium 10.2 H 12/06/23 19:51: POC Glucose 451 H* 12/06/23 22:37: POC Glucose 312 H 12/07/23 03:13: POC Glucose 197 H 12/07/23 06:38: WBC 9.2, RBC 4.18 L, Hgb 13.4, Hct 39.4 L, MCV 94.3 H, MCH 32.1 H, MCHC 34.0, RDW Std Deviation 44.3 H, RDW Coeff of Favio 12.8, Plt Count 196, MPV 12.0, Sodium 138, Potassium 4.2, Chloride 108 H, Carbon Dioxide 23.0, Anion Gap 7, BUN 24 H, Creatinine 1.04, Estim Creat Clear Calc 66.21, Est GFR (MDRD) Af Amer 92, Est GFR (MDRD) Non-Af 76, BUN/Creatinine Ratio 23.1 H, Glucose 168 H, Calcium 8.6 Medications at Discharge Home Medications aspirin 81 mg tablet,delayed release 81 mg PO DAILY@0800 [facility] 12/03/15 nitroglycerin 0.4 mg sublingual tablet 0.4 mg sublingual Q5M PRN Chest Pain #25 tabs 07/31/22 atorvastatin 40 mg tablet 40 mg PO QHS #90 tabs 10/24/23 lisinopril 5 mg tablet 5 mg PO DAILY #90 tabs 10/24/23 metoprolol tartrate 25 mg tablet 25 mg PO BID #180 tabs 10/24/23 dapagliflozin propanediol 10 mg tablet (Farxiga) 10 mg PO QAM #30 tabs 11/28/23 spironolactone 25 mg tablet 25 mg PO DAILY #30 tabs 11/28/23 omeprazole 20 mg tablet,delayed release 20 mg PO DAILY 12/06/23 insulin aspart (niacinamide)(U-100) 100 unit/mL (3 mL) subcu cartridge (Fiasp Penfill U-100 Insulin) 6 unit subcut TID #15 mL 12/07/23 insulin glargine 100 unit/mL (3 mL) subcutaneous pen (Basaglar KwikPen U-100 Insulin) 15 unit (0.15 mL) subcut DAILY #15 mL 12/07/23 insulin lispro 100 unit/mL subcutaneous pen (Humalog KwikPen (U-100) Insulin) See Protocol subcut ACHS #0 mL 12/07/23 metformin 500 mg tablet 500 mg PO BID 1 month #60 tabs 12/07/23 pen needle, diabetic 32 gauge x 1/6 #100 ea 12/07/23 Physical Exam Narrative Patient was thirsty for 2 to 3 days before admission. Seen and examined General: Alert, Oriented x3, Cooperative HEENT: Atraumatic, PERRLA, EOMI, Normocephalic Oral: Oral mucosa moist. No Gingival or Mucosal Lesions/ Ulcerations Neck: Supple, No JVD, Negative Carotid Bruits Chest wall/Lungs: Air entry diminished in bilateral lung bases. No crepitation/rhonchi Cardiovascular: Regular rate, Regular Rhythm, Normal S1, Normal S2, No M/G/R Abdomen: Bowel Sounds Present, Soft, Non Tender, Non-Distended : No dysuria. No renal angle tenderness. No suprapubic tenderness. Extremities: No edema, Capillary Refill Less than 3 Seconds Skin: No rashes, No breakdown Musculoskeletal: No Tenderness to Palpation of Joints or Extremities Neurological: Cranial nerves II-XII grossly intact, DTR 2+/4. No acute focal neurological deficit. Psych/Mental Status: Normal Affect, Appropriate. Weight / BMI Weight Weight: 174 lb 13.225 oz Body Mass Index (BMI) 27.3 ABG / Lab / Microbiology Data 12/07/23 06:38 12/07/23 06:38 Laboratory: Laboratory Results - last 24 hr 12/06/23 16:53: Sodium Cancelled, Potassium Cancelled, Chloride Cancelled, Carbon Dioxide Cancelled, Anion Gap Cancelled, BUN Cancelled, Creatinine Cancelled, Estim Creat Clear Calc Cancelled, Est GFR (MDRD) Af Amer Cancelled, Est GFR (MDRD) Non-Af Cancelled, BUN/Creatinine Ratio Cancelled, Glucose Cancelled, Hemoglobin A1c 12.1 H, Calcium Cancelled 12/06/23 17:43: Sodium 118 L*, Potassium 6.6 H*, Chloride 86 L, Carbon Dioxide 22.0, Anion Gap 10, BUN 42 H, Creatinine 1.79 H, Estim Creat Clear Calc 38.47, Est GFR (MDRD) Af Amer 49 L, Est GFR (MDRD) Non-Af 41 L, BUN/Creatinine Ratio 23.5 H, Glucose 776 H*, Calcium 10.2 H 12/06/23 19:51: POC Glucose 451 H* 12/06/23 22:37: POC Glucose 312 H 12/07/23 03:13: POC Glucose 197 H 12/07/23 06:38: WBC 9.2, RBC 4.18 L, Hgb 13.4, Hct 39.4 L, MCV 94.3 H, MCH 32.1 H, MCHC 34.0, RDW Std Deviation 44.3 H, RDW Coeff of Favio 12.8, Plt Count 196, MPV 12.0, Sodium 138, Potassium 4.2, Chloride 108 H, Carbon Dioxide 23.0, Anion Gap 7, BUN 24 H, Creatinine 1.04, Estim Creat Clear Calc 66.21, Est GFR (MDRD) Af Amer 92, Est GFR (MDRD) Non-Af 76, BUN/Creatinine Ratio 23.1 H, Glucose 168 H, Calcium 8.6 12/07/23 08:17: POC Glucose 211 H D/C Instructions Discharge Diet: Low fat / Low cholesterol and 1800 Calorie Control Diet Weight Bearing Status: Weight bearing as tolerated Call your doctor if you observe: Fever of 101 or Higher, Coldness, Increased Pain, Numbness or Tingling, Change in Color, Inability to urinate, Inability to have a bowel movement, Shortness of breath, Dizziness, Fainting spells, Swelling in the ankles, Chest pain, Prolonged hiccupping, Increased palpitations (irregular heartbeat) and Calf discomfort When: IN 2 WEEKS Meaningful Use Info Meaningful Use Meaningful Use Diagnoses (Choose all that apply): None applicable Ischemic Stroke Statin Dosing Therapy Reference: STATIN DOSE THERAPY REFERENCE: * Patients > 75 years receive moderate or high dose statin therapy. * Patients 75 years or YOUNGER should receive HIGH intensity statin dose unless contraindicated. You will be required to document reason for non-treatment if statin daily dose does not meet guidelines. HIGH DOSE STATIN THERAPY DAILY Atorvastatin > than or = to 40 mg Rosuvastatin > than or = to 20 mg Amlodipine + Atorvastatin > than or = to 2.5/40 mg Ezetimibe + Simvastatin 10/80 mg Simvastatin 80mg Discharge Plan Admission Admit Date/Time: 12/06/23 21:40 Primary Reason for Your Visit: hyperglycemia, RADHA with hypertonic hyponatremia Attending Provider: Jonatan Keller Primary Care Provider: Connie Sun Consulting Providers: Olfa Salter Discharge Orders/Prescriptions Prescriptions: New insulin lispro [Humalog KwikPen Insulin] 100 unit/mL Insulin Pen See Protocol subcut ACHS Qty: 0 0RF Protocol: 4. Sliding Scale Insulin High-Med Dosing Condition: 150-199 mg/dl = 2 units Condition: 200-259 mg/dl = 4 units Condition: 260-324 mg/dl = 6 units Condition: 325-374 mg/dl = 8 units Condition: 375-409 mg/dl = 10 units Condition: 410-449 mg/dl = 11 units Condition: Greater than 449 call physician Protocol Text: - Use for Total Daily Dose of Insulin 56-80 units - Patient who are insulin resistant or septic HIGH MEDIUM DOSING ALGORITHM metformin 500 mg tablet 500 mg PO BID 30 Days Qty: 60 0RF Rx Instructions: Start from 12/10/2023 (DME) pen needle, diabetic 32 gauge x 1/6 needle See Rx Instructions .Route Qty: 100 1RF Rx Instructions: As directed insulin glargine [Basaglar KwikPen U-100 Insulin] 100 unit/mL (3 mL) insulin pen 15 unit subcut DAILY Qty: 15 3RF Rx Instructions: Hold if glucose less than 130 mg/dl Fiasp Penfill U-100 Insulin 100 unit/mL (3 mL) cartridge 6 unit subcut TID Qty: 15 3RF Rx Instructions: Hold if glucose less than 130 mg/dl Continued atorvastatin 40 mg tablet 40 mg PO QHS Qty: 90 4RF metoprolol tartrate 25 mg tablet 25 mg PO BID Qty: 180 3RF dapagliflozin propanediol [Farxiga] 10 mg tablet 10 mg PO QAM Qty: 30 6RF omeprazole 20 mg tablet,delayed release (DR/EC) 20 mg PO DAILY aspirin 81 MG tablet 81 mg PO DAILY@0800 nitroglycerin 0.4 mg tablet, sublingual 0.4 mg SUBLINGUAL Q5M PRN (Reason: Chest Pain) Qty: 25 3RF Rx Instructions: script never filled Held lisinopril 5 mg tablet 5 mg PO DAILY Qty: 90 4RF Hold Instructions: Hold for 3 days spironolactone 25 mg tablet 25 mg PO DAILY Qty: 30 6RF Hold Instructions: Hold for 5 days Referrals / Follow Up: Connie Sun MD [Primary Care Provider] - In 1 Week Disposition Disposition (needs filled in before D/C Order can be placed): Home, Self Care Charges/Coding Visit Charges Inpatient E&M: 94514 Disch Hosp >30min
--- NOTE | 2023-12-07 10:40 | CASEMGMT ---
RN CM Face to Face with patient for initial transition planning/care coordination assessment. RN CM introduced self and role at [facility]. Patient lying in bed, alert and oriented, at bedside. Patient willing to participate in assessment and is able to answer all questions appropriately. Care providers, pharmacy, and demographics verified. PCP: Dino Specialists: Arthur, oncologist; Nereida, land survey technician; Preferred Pharmacy: [facility] Insurance: [facility] Prescription Benefit: yes Living Will/HPOA: yes, Leslye Estrada LNOK: Living Arrangements: Patient lives with in a single story home with 1 step to enter. Patient is indepnedent at home. Transportation: self, DME/HHC: Patient denies DME in the home. No previous HHC or SNF. Patient will need glucometer at [facility]. Script received and included in discharge instructions. Patient wishes to discharge home, denies need for home health at this time. Patient states he has no further needs or concerns at this time. CM to follow for discharge planning needs that may arise. Disposition Plan: Patient to discharge home with family support and follow-up plans in place. Cathi ALVARENGA, RN, CM
--- NOTE | 2023-12-07 11:25 | PHA.DC_ITS ---
Pharmacy [facility] has performed discharge medication reconciliation and counseling for this patient. The patient's discharge medication list was reviewed for discrepancies and discrepancies were resolved. The patient was counseled on the following discharge medications and changes in medications for homegoing were reviewed. The Reason for Use, instructions for use, and potential side effects were reviewed for all new medications. The patient's questions regarding all of their medications were answered. 1. Metformin 500 mg PO BID 2. Lantus 15 units daily 3. Lispro 6 units TID plus SSI The patient was able to verbally demonstrate an understanding of their discharge medications. Medications at Discharge Home Medications aspirin 81 mg tablet,delayed release 81 mg PO DAILY@0800 [facility] 12/03/15 nitroglycerin 0.4 mg sublingual tablet 0.4 mg sublingual Q5M PRN Chest Pain #25 tabs 07/31/22 atorvastatin 40 mg tablet 40 mg PO QHS #90 tabs 10/24/23 lisinopril 5 mg tablet 5 mg PO DAILY #90 tabs 10/24/23 metoprolol tartrate 25 mg tablet 25 mg PO BID #180 tabs 10/24/23 dapagliflozin propanediol 10 mg tablet (Farxiga) 10 mg PO QAM #30 tabs 11/28/23 spironolactone 25 mg tablet 25 mg PO DAILY #30 tabs 11/28/23 omeprazole 20 mg tablet,delayed release 20 mg PO DAILY 12/06/23 insulin glargine 100 unit/mL subcutaneous solution 15 unit (0.15 mL) subcut DAILY #10 mL 12/07/23 insulin lispro 100 unit/mL subcutaneous pen (Humalog KwikPen (U-100) Insulin) 6 unit (0.06 mL) subcut TID #15 mL 12/07/23 insulin lispro 100 unit/mL subcutaneous pen (Humalog KwikPen (U-100) Insulin) See Protocol subcut ACHS #0 mL 12/07/23 metformin 500 mg tablet 500 mg PO BID 1 month #60 tabs 12/07/23 pen needle, diabetic 32 gauge x 1/6 #100 ea 12/07/23
[2023-12-07 11:42] LABS: Bedside Glucose 151 mg/dL (74-106)
--- NOTE | 2023-12-07 12:30 | CASEMGMT ---
Patient discharging today on Humalog and Lantus. HERNANDEZ SUTHERLAND called [facility] to verify cost and prescriptions requires prior auth. HERNANDEZ SUTHERLAND called [facility] to complete prior auth. Per [facility], Fiasp and Basaglar and the preferred formulary drugs. HERNANDEZ SUTHERLAND updated hospitalist and new scripts sent to [facility]. HERNANDEZ SUTHERLAND called [facility] and verify prescriptions and both went through and are $35 each. HERNANDEZ SUTHERLAND updated patient and . Patient and had no further questions or concerns.
[2023-12-07 19:12] LABS: Bedside Glucose > 500 mg/dL (74-106)
[2023-12-07 19:12] LABS: Bedside Glucose > 500 mg/dL (74-106)
== END 2023-12-07 13:31 | disposition home or self-care (01) | DRG 638 ==
LOC: ED 19:57 → PCU 21:52
PROVIDERS: Admitting Provider Hospitalist; Emergency Provider Emergency Medicine; PCP Internal Medicine; Visit Provider Internal Medicine
DX: E11.65 Type 2 diabetes mellitus with hyperglycemia (principal); I50.22 Chronic systolic (congestive) heart failure; N17.9 Acute kidney failure, unspecified; E87.1 Hypo-osmolality and hyponatremia; I11.0 Hypertensive heart disease with heart failure; I25.10 Atherosclerotic heart disease of native coronary artery without angina pectoris; K21.9 Gastro-esophageal reflux disease without esophagitis; I25.5 Ischemic cardiomyopathy; E87.5 Hyperkalemia; E78.5 Hyperlipidemia, unspecified; I25.2 Old myocardial infarction; E86.0 Dehydration; Z79.82 Long term (current) use of aspirin; Z95.5 Presence of coronary angioplasty implant and graft; Z87.891 Personal history of nicotine dependence; Z92.21 Personal history of antineoplastic chemotherapy; Z85.118 Personal history of other malignant neoplasm of bronchus and lung
CPT/HCPCS: 36415; 80048; 80053; 82962; 83036; 84439; 84443; 85025; 85027; 93005; 94640; 97802; 99285; 99406; J7030; A4216

== ENCOUNTER → 2023-12-10 | Outpatient (CLI) | payer MEDICARE, OTHER, SELFPAY ==
--- NOTE | 2023-12-10 14:29 | CT_ITS ---
STUDY: CT CHEST T ABDOMEN WITH CONTRAST REASON FOR EXAM: Male, 67 years old. NSCLC AND 20 LB WT LOSS UNEXPLAINED IV CONT ONLY RADIATION DOSAGE (If Supplied By Facility): CTDIvol = ( 15.23 ) mGy, DLP = ( 1112.13 ) mGycm TECHNIQUE: Transaxial imaging was performed following intravenous administration of IV 100mL Isovue-300. Multiplanar coronal and sagittal images were reformatted. Individualized dose optimization techniques were used for this CT. COMPARISON: Comparison is made with prior study dated August 22, 2023. FINDINGS: CHEST Stable fat-containing bilateral axillary lymph nodes. Hyperinflation. Emphysematous changes. There is no demonstrated pleural abnormality. Normal heart and pericardium. Mild degree of coronary artery calcification. There are multiple small lymph nodes within the mediastinum, which are normal in size and morphology most compatible with reactive lymph hyperplasia. Normal hilar regions. Normal unenhanced pulmonary arteries. Normal aorta arch and descending thoracic aorta. There are multi-level degenerative changes of the thoracic spine. Diffuse fatty infiltration of the liver. ABDOMEN There is decreased attenuation of the liver consistent with steatosis. Normal gallbladder and extrahepatic biliary system. Normal spleen. Normal pancreas. Normal bilateral adrenal glands. Normal right kidney. Normal left kidney. Normal visualized stomach. Normal small intestine. There are scattered colonic diverticula consistent with diverticulosis. The appendix is visualized and appears normal. There is diffuse atherosclerotic calcification of the abdominal aorta. Infrarenal abdominal aortic aneurysm with a transverse dimension of 3 cm. Mural thrombus is seen. Normal inferior vena cava. Normal retroperitoneum. There is a small umbilical hernia containing fat. There are diffuse degenerative changes of the visualized lumbar spine. Degenerative changes of the sacroiliac joints bilaterally. CT/CT Chest AND Abd W/ Contrast IMPRESSION: Stable examination. Electronically Signed: Jermain Ho MD at 13:02 EDT ,
== END | disposition home or self-care (01) ==
LOC: CT 14:29
PROVIDERS: PCP Internal Medicine; Referring Provider Internal Medicine Hematology & Oncology; Visit Provider Internal Medicine Hematology & Oncology
DX: C34.90 Malignant neoplasm of unspecified part of unspecified bronchus or lung (principal); R63.4 Abnormal weight loss
CPT/HCPCS: 71260; 74160; Q9967

== ENCOUNTER → 2023-12-17 | Outpatient (CLI) | payer MEDICARE, OTHER, SELFPAY ==
[2023-12-17 08:36] LABS: Vitamin D,25 Hydroxy 35.6 ng/mL
[2023-12-17 08:51] LABS: ALB/GLOB Ratio 0.8 RATIO (0.9-2.4); AST(SGOT) 52 U/L (15-37); Alanine Aminotransfer ALT/SGPT 68 U/L (16-61); Albumin, Serum 3.7 g/dL (3.2-5.0); Alkaline Phosphatase 128 U/L (45-117); Anion Gap 6 (5-15); BUN 22 mg/dL (7-18); BUN/Creat Ratio 21.6 RATIO (10-20); Calcium,Total 9.3 mg/dL (8.5-10.1); Chloride 105 mmol/L (98-107); Creatinine, Serum 1.02 mg/dL (0.70-1.30); EST Glomerular Filtration Rate 78 mL/min (>60); Est Glom Filt Rate - Afr Amer 94 mL/min (>60); Globulin 4.4 g/dL (2.2-4.2); Glucose 124 mg/dL (74-106); Magnesium 1.9 mg/dL (1.6-2.6); Potassium 4.3 mmol/L (3.5-5.1); Protein, Total 8.1 g/dL (6.4-8.2); Sodium Level 135 mmol/L (136-145); Thyroid Stim Hormone (TSH) 2.62 uIU/mL (0.358-3.74)
[2023-12-17 09:08] LABS: Cholesterol 108 mg/dL (200); High Density Lipoprotein 37 mg/dL; Triglycerides 109 mg/dL; Very Low Density Lipoprotein 22 mg/dL (5-40)
[2023-12-18 11:09] LABS: C-Peptide 3.6 ng/mL (1.1-4.4); Insulin Level 17.4 uIU/mL (2.6-24.9)
== END | disposition home or self-care (01) ==
PROVIDERS: Physician Assistant Medical; PCP Internal Medicine; Referring Provider Internal Medicine; Visit Provider Internal Medicine
DX: E11.9 Type 2 diabetes mellitus without complications (principal); I50.22 Chronic systolic (congestive) heart failure; E87.5 Hyperkalemia; E87.6 Hypokalemia; I25.5 Ischemic cardiomyopathy; E55.9 Vitamin D deficiency, unspecified; E78.5 Hyperlipidemia, unspecified
CPT/HCPCS: 36415; 80053; 80061; 82306; 83525; 83735; 84443; 84681

== ENCOUNTER → 2024-05-29 | Outpatient (CLI) | payer MEDICARE, OTHER, SELFPAY ==
--- NOTE | 2024-05-29 12:18 | RAD_ITS ---
EXAM: XR LUMBOSACRAL SPINE, 2 OR 3 VIEWS CLINICAL INDICATION: low back pain TECHNIQUE: Frontal and lateral views of the lumbar spine and sacrum. COMPARISON: CT chest abdomen pelvis, 12/10/2023 FINDINGS: VERTEBRAE: Multilevel facet arthrosis and endplate osteophytosis. Hudson right lumbar curvature. No fracture, spondylolysis, or spondylolisthesis. SACRUM/COCCYX: Symmetric mild arthrosis of the bilateral SI joints and visualized bilateral hips. DISC SPACES: Multilevel intervertebral disc height loss. GASTROINTESTINAL TRACT: Normal as visualized. Included bowel gas pattern is non-obstructive. RAD/Lumbar Spine 2 or 3 Views IMPRESSION: No fracture, spondylolysis, or spondylolisthesis. Multilevel degenerative changes which correlate with the prior examination. Electronically Signed: Costa Henson DO at 22:04 EDT ,
[2024-05-29 13:10] LABS: Hemoglobin A1c 6.6 % (3.8-5.6)
[2024-05-29 13:15] LABS: ALB/GLOB Ratio 0.8 RATIO (0.9-2.4); AST(SGOT) 21 U/L (15-37); Alanine Aminotransfer ALT/SGPT 31 U/L (16-61); Albumin, Serum 3.8 g/dL (3.2-5.0); Alkaline Phosphatase 119 U/L (45-117); Anion Gap 4 (5-15); BUN 24 mg/dL (7-18); BUN/Creat Ratio 19.2 RATIO (10-20); Chloride 104 mmol/L (98-107); Creatinine, Serum 1.25 mg/dL (0.70-1.30); EST Glomerular Filtration Rate 61 mL/min (>60); Est Glom Filt Rate - Afr Amer 74 mL/min (>60); Globulin 4.8 g/dL (2.2-4.2); Glucose 129 mg/dL (74-106); Potassium 4.3 mmol/L (3.5-5.1); Protein, Total 8.6 g/dL (6.4-8.2); Sodium Level 136 mmol/L (136-145)
== END | disposition home or self-care (01) ==
LOC: LAB 11:54
PROVIDERS: PCP Internal Medicine; Referring Provider Internal Medicine; Visit Provider Internal Medicine
DX: M54.50 Low back pain, unspecified (principal); E11.9 Type 2 diabetes mellitus without complications
CPT/HCPCS: 36415; 72100; 80053; 83036

== ENCOUNTER → 2024-06-04 | Outpatient (CLI) | payer MEDICARE, OTHER, SELFPAY ==
--- NOTE | 2024-06-04 08:15 | CT_ITS ---
STUDY: CT CHEST T ABDOMEN WITH CONTRAST REASON FOR EXAM: Male, 68 years old. F/U NSCLC S/P RLL RESECTION IV CONTRAST ONLY RADIATION DOSAGE (If Supplied By Facility): CTDIvol = ( 14.90 ) mGy, DLP = ( 888.57 ) mGycm TECHNIQUE: Transaxial imaging was performed following intravenous administration of IV 100mL Isovue-300. Multiplanar coronal and sagittal images were reformatted. Individualized dose optimization techniques were used for this CT. COMPARISON: Comparison is made with prior study December 10, 2023. FINDINGS: CHEST Stable small bilateral fat-containing axillary lymph nodes. Stable emphysematous changes with hyperinflation. No pulmonary mass lesion is seen. The patient is status post right lower lobe resection. There is no demonstrated pleural abnormality. There are calcifications of the coronary arteries. There are small lymph nodes within the mediastinum, which are normal in size and morphology most compatible with reactive lymph hyperplasia. Normal hilar regions. Normal unenhanced pulmonary arteries. Normal aorta arch and descending thoracic aorta. There are degenerative changes of the thoracic spine. Fatty infiltration of the liver. ABDOMEN There is decreased attenuation of the liver consistent with steatosis. Normal gallbladder and extrahepatic biliary system. Normal spleen. Normal pancreas. Normal bilateral adrenal glands. Normal right kidney. Normal left kidney. There is a small hiatal hernia. Normal small intestine. Normal colon. The appendix is visualized and appears normal. There is diffuse atherosclerotic calcification of the abdominal aorta. Stable infrarenal abdominal aortic aneurysm with a transverse dimension of 3 cm. Mild irregular mural thrombus is seen. Normal inferior vena cava. Normal retroperitoneum. There is a small umbilical hernia containing fat. There are diffuse degenerative changes of the visualized lumbar spine. CT/CT Chest AND Abd W/ Contrast IMPRESSION: Stable examination. Electronically Signed: Jermain Ho MD at 15:10 EDT ,
--- OUTSIDE RECORDS SUMMARY | 2024-06-04 08:37 | XMS RPT_ITS | CCD ---
Author Organization [facility] Care Team Providers Care Drilling Fluids Specialist Name Role Phone Sadie NG, Tiana Campbell Unavailable Unavailable Clare TRACEY, Nicholas Child Unavailable Belia, HERNANDEZ, Aissatou Mantilla Unavailable UnavailJazz Hutchinson Unavailable Unavailable Sadie NG, Tiana Campbell Unavailable Unavailable Sadie NG, Tiana Campbell Unavailable Unavailable Sadie NG, Tiana Campbell Unavailable Unavailable Pk Vargas Unavailable Unavailable HERNANDEZ Celaya, Aissatou Mantilla Unavailable UnavailJazz Hutchinson Y Unavailable Unavailable Jazz Holley Y Unavailable Unavailable Lenard Elizondo (Hist) Primary Care Provider Un available Tahira Cutler Primary Care Provider [phone] Medications Current Medications Medication Drug Class(es) Dates [...] pain 28 tablet 0 01/26/2022 02/02/2022 Active Start: 01-25-2022 oxyCODONE (CHARLOTTE ICODONE) immediate release tablet 5 mg polyethylene glycol 3350 90750 mg powder for oral solution (1 source) Osmotic Laxative Start: 01-26-2022 End: 02-25-2022 polyethylene glycol (GLYCOLAX) 17 GM/SCOOP powder Take 17 g by mouth daily 510 g 0 01/26/2022 02/25/2022 Active 1000 ml sodium chloride 9 mg/ml injection (4 sources) Start: 01-25-2022 IntraVENous, a t 5-250 mL/hr, PRN, if patient receiving piggyback infusions and maintenance fluids are not ordered OR KVO fluids to protect IV site / prevent frequent line interruptions/ long duration, Starting on Sun01/25/22 at 2042 For piggyback infusion, administer at same rate [...] or less into rate field of order. Start: 01-25-2022 take 1 dose intraven ously twice daily 5-40 mL, IntraVENous, EVERY 12 HOURS SCHEDULED (2 times per day), First dose on Sun01/25/22 at 2100, Until Discontinued For Line Patency: Peripheral IV = 5 [...] Midline or Central Line = 20 mL/lumen Start: 01-25-2022 take 5-40 mL intrave nously once as needed 5-40 mL, IntraVENous, PRN, Starting on Sun01/25/22 at 2042, Until Discontinued, Line Care, After every IV line use For Line Patency: Peripheral IV = 5 [...] Midline or Central Line = 20 mL/lumen Start: 01-25-2022 End: 01-25-2022 0.9 % sodium chloride infusi on Completed/Discontinued Medications Medication Drug Class(es) Dates Sig [...] TBEC One tablet by mouth daily ASPIRIN [id number] Tiana Noel RN atorvastatin 80 mg oral tablet (17 sources) HMG-CoA Reductase Inhibitor Start: 01-25-2022 take 80 mg by mouth once daily 80 mg, Oral, DAILY, First dose on Sun01/25/22 at 2100, Until Discontinued Start: 04-10-2016 take 1 tablet by dung once daily ATORVASTATIN CALCIUM 80 MG TABS One tablet by mouth daily ATORVASTATIN CALCIUM [id number] Nicholas Sparks MD calcium chloride 0.0014 meq/ml / potassium chloride 0.004 meq/ml / sodium chloride 0.103 meq/ml / sodium lactate 0.028 meq/ml injectable solution (1 source) Start: 01-25-2022 End: 01-26-2022 IntraVENous, at 75 mL/hr, CONTINUOUS, Starting on Sun01/25/22 at 2100 ceFAZolin 2000 mg injection (1 source) Cephalosporin Antibacterial Start: 01-25-2022 End: 01-26-2022 2,000 mg, IntraVENous, EVERY 8 HOURS, 3 doses, First dose on Sun01/25/22 at 2200, Last dose on Sun01/26/22 at 1400 Antimicrobial Indications: Surgical Prophylaxis celecoxib 400 mg oral capsule (1 source) Nonsteroidal Anti-inflammatory Drug Start: 01-25-2022 End: 01-25-2022 celecoxib (CELEBREX) capsule 400 mg clopidogrel 75 mg oral tablet (16 sources) P2Y12 Platelet Inhibitor Start: 04-10-2016 take 1 tablet by mouth once daily PLAVIX 75 MG TABS One tablet by mouth daily CLOPIDOGREL BISULFATE [id number] Nicholas Sparks MD famotidine 20 mg oral tablet (1 source) Histamine-2 Receptor Antagonist Start: 01-25-2022 End: 01-25-2022 famotidine (PEPCID) tablet 20 mg gabapentin 300 mg oral capsule (1 source) Anti-epileptic Agent Start: 01-25-2022 End: 01-25-2022 gabapentin (NEURONTIN) capsule 300 mg 1 ml hydrALAZINE hydrochloride 20 mg/ml injection (1 source) Arteriolar Vasodilator Start: 01-25-2022 10 mg, IntraVENous, EVERY 4 HOURS PRN, Starting on Sun01/25/22 at 2042, Until Discontinued, High Blood Pressure, SBP > 160. Hold if HR > 100. Second line labetalol hydrochloride 5 mg/ml injectable solution (1 source) beta-Adrenergic Anjana Start: 01-25-2022 10 mg, IntraVENous, EVERY 4 HOURS PRN, Starting on Sun01/25/22 at 2042, Until Discontinued, High Blood Pressure, SBP > 160. Hold if HR < 60. First line lisinopril 2.5 mg oral tablet (20 sources) Angiotensin Converting Enzyme Inhibitor Start: 02-20-2017 take 1 tablet by mouth twice daily LISINOPRIL 5 MG TABS One tablet by mouth twice daily LISINOPRIL [id number] Nicholas Sparks MD Start: 04-10-2016 take 1 tablet by dung th once daily LISINOPRIL 5 MG TABS One tablet by mouth daily LISINOPRIL [id number] Nicholas Sparks MD Start: 01-22-2016 take 1 tablet by dung th once daily LISINOPRIL 2.5 MG TABS One tablet by mouth daily LISINOPRIL [id number] Tiana Noel RN 1 ml LORazepam 2 mg/ml injection (1 source) Benzodiazepine Start: 01-25-2022 End: 01-25-2022 LORazepam (ATIVAN) injection 0.5 mg methocarbamol 500 mg oral tablet (1 source) Muscle Relaxant Start: 01-25-2022 take 500 mg by mouth three times daily 500 mg, Oral, 3 TIMES DAILY, First dose on Sun01/25/22 at 2100, Until Discontinued metoprolol tartrate 25 mg oral tablet (17 sources) beta-Adrenergic Anjana Start: 01-25-2022 take 25 mg by mouth twice daily 25 mg, Oral, 2 TIMES DAILY, First dose on Sun01/25/22 at 2100, Until Discontinued Start: 04-10-2016 take 1 tablet by dung th once daily METOPROLOL SUCCINATE ER 50 MG [id number] One tablet by mouth daily METOPROLOL SUCCINATE [id number] Nicholas Sparks MD nitroglycerin 0.4 mg sublingual tablet (16 sources) Nitrate Vasodilator Start: 02-20-2017 NITROGLYCE RIN 0.4 MG SUBL 1 tablet under the tongue every 5 minutes times 3 as needed for chest pain. NITROGLYCERIN [id number] Tiana Noel RN Problems Active Problems Problem Classification Problem Date [...] Results Test Name Value Interpretation Reference Range Facility Progress Noteon 07-24-2022 Progress Note Lung cancer patient (right lower lobectomy) January [address] Campa, stage IB-[facility] Basic Metabolic Panelon 01-11 Anion gap [Moles/Vol] 5 mmol/L Normal 3-13 [facility] Comment on above: Performed By: #### B MP3, HEMDF #### [facility] [address], [place] Calcium [Mass/Vol] 8.9 mg/dL Normal 8.4-10.4 [facility] Comment on above: Performed By: #### B MP3, HEMDF #### [facility] [address], [place] CO2 [Moles/Vol] 27 mmol/L Normal 22-30 [facility] Comment on above: Performed By: #### B MP3, HEMDF #### [facility] [address], [place] Glucose [Mass/Vol] 188 mg/dL High 70-100 [facility] Comment on above: Performed By: #### B MP3, HEMDF #### [facility] [address], [place] Urea nitrogen [Mass/Vol] 21 mg/dL High 7-17 [facility] Comment on above: Performed By: #### B MP3, HEMDF #### [facility] [address], [place] Creatinine [Mass/Vol] 0.92 mg/dL Normal 0.52-1.25 [facility] Comment on above: Performed By: #### B MP3, HEMDF #### [facility] [address], [place] GFR/1.73 sq M.predicted among blacks MDRD (S/P/Bld) [Vol rate/Area] mL/min/{1.73_m2} Normal >60 [facility] Comment on above: Performed By: #### B MP3, HEMDF #### [facility] [address], [place] GFR/1.73 sq M.predicted among non-blacks MDRD (S/P/Bld) [Vol rate/Area] 87.5 mL/min/{1.73_m2} Normal >[address] [facility] Comment on above: Result Comment: KDIG O guidelines provide the following GFR categories: Stage GFR(ml/min/1.73 m2) Terms G1 >=90 Normal or high G2 60-89 Mildly decreased* G3a 45-59 Mildly to moderately decreased G3b 30-44 Moderately to severely decreased G4 15-29 Severely decreased G5 <15 Kidney failure *Relative to young adult level. In the absence of evidence of kidney damage, neither GFR category G1 nor G2 fulfill the criteria for CKD. The CKD-EPI equation is validated in individuals 18 years of age and older. Currently the best equation for estimating glomerular filtration rate (GFR) from serum creatinine in children is the Bedside Mauricio equation. It is less accurate in patients with extremes of muscle mass, restriction of dietary protein, ingestion of creatine, extra-renal metabolism of creatinine, or treatment with medications that affect renal tubular creatinine secretion. Performed By: #### B MP3, HEMDF #### [address] [address] Chloride [Moles/Vol] 103 mmol/L Normal 98-107 [facility] Comment on above: Performed By: #### Danielle MP3, HEMDF #### [address] [address] [place] [address] Potassium [Moles/Vol] 3.8 mmol/L Normal 3.5-5.1 [facility] Comment on above: Performed By: #### Danielle MP3, HEMDF #### [address] [address] Sodium [Moles/Vol] 135 mmol/L Normal 135-145 [facility] Comment on above: Performed By: #### B MP3, HEMDF #### [address] [address] Anion gap [Moles/Vol] 5 mmol/L 3 - 13 mmol/L [facility] Calcium [Mass/Vol] 8.9 mg/dL 8.4 - 10. 4 mg/dL [facility] Chloride [Moles/Vol] 103 mmol/L 98 - 10 7 mmol/L [facility] CO2 [Moles/Vol] 27 mmol/L 22 - 30 mmol/L [facility] Creatinine [Mass/Vol] 0.92 mg/dL 0.52 - 1.25 mg/dL [facility] EGFR IF NonAfrican [place] 87.5 mL/min >60 [facility] Comment on above: KDIGO guidelines pro vide the following GFR categories: Stage GFR(ml/min/1.73 m2) Terms G1 >=90 Normal or high G2 60-89 Mildly decreased* G3a 45-59 Mildly to moderately decreased G3b 30-44 Moderately to severely decreased G4 15-29 Severely decreased G5 <15 Kidney failure *Relative to young adult level. In the absence of evidence of kidney damage, neither GFR category G1 nor G2 fulfill the criteria for CKD. The CKD-EPI equation is validated in individuals 18 years of age and older. Currently the best equation for estimating glomerular filtration rate (GFR) from serum creatinine in children is the Bedside Mauricio equation. It is less accurate in patients with extremes of muscle mass, restriction of dietary protein, ingestion of creatine, extra-renal metabolism of creatinine, or treatment with medications that affect renal tubular creatinine secretion. GFR/1.73 sq M.predicted among blacks MDRD (S/P/Bld) [Vol rate/Area] mL/min/{1.73_m2} >60 mL/min [facility] Glucose [Mass/Vol] 188 mg/dL High 70 - 100 mg/dL [facility] Interpretation and review of laboratory results Abnormal [facility] Potassium [Moles/Vol] 3.8 mmol/L 3.5 - 5.1 mmol/L [facility] Sodium [Moles/Vol] 135 mmol/L 135 - 145 mmol/L [facility] Urea nitrogen (BldV) [Mass/Vol] 21 mg/dL High 7 - 17 mg/dL [facility] Test Performed by [facility], [address] [place] [id number] [place] [address] LAB [facility] CBC with Auto Differentialon 01-27-2022 Absolute Baso # 0.0 10*3/uL 0.0 - 0.2 10*3/uL [facility] Absolute Neut # 14.0 10*3/uL High 1.8 - 7.0 10*3/uL [facility] Basophils/100 WBC (Bld) 0.1 % 0.0 - 2.0 % [facility] Eosinophils (Bld) [#/Vol] 0.0 10*3/uL 0.0 - 0.5 10*3/uL [facility] Eosinophils/100 WBC (Bld) 0.0 % Low 1.0 - 6.0 % [facility] Granulocytes/100 WBC (Bld) 79.3 % 40.0 - 80.0 % [facility] Hematocrit (Bld) [Volume fraction] 40.5 % 40.0 - 52.0 % [facility] Hemoglobin (Bld) [Mass/Vol] 14.0 g/dL 13.0 - 18.0 g/dL [facility] Interpretation and review of laboratory results Abnormal [facility] Lymphocytes (Bld) [#/Vol] 2.2 10*3/uL 1.0 - 4.3 10*3/uL [facility] Lymphocytes/100 WBC (Bld) 12.2 % Low 20.0 - 40.0 % [facility] MCH (RBC) [Entitic mass] 33.3 pg 26.0 - 34.0 pg [facility] MCHC (RBC) [Mass/Vol] 34.6 % 32.0 - 36.0 % [facility] MCV (RBC) [Entitic vol] 96.2 fL 80.0 - 98.0 fL [facility] Monocytes (Bld) [#/Vol] 1.5 10*3/uL High 0.0 - 0.8 10*3/uL [facility] Monocytes/100 WBC (Bld) 8.4 % 2.0 - 10.0 % [facility] Platelet distribution width (Bld) [Ratio] 14.3 % 11.5 - 14.5 % [facility] Platelet mean volume (Bld) [Entitic vol] 9.0 fL 7.4 - 12.4 fL [facility] Comment on above: MPV is a calculated measurement using platelet volume ratio. Platelets (Bld) [#/Vol] 213 10*3/uL 140 - 440 10*3/uL [facility] RBC (Bld) [#/Vol] 4.21 10*6/uL Low 4.40 - 5.9 0 10*6/uL [facility] WBC (Bld) [#/Vol] 17.6 10*3/uL High 3.6 - 10.7 10*3/uL [facility] Test Performed by [facility] [address] [address] [facility] LAB [facility] CR Chest Portableon 01-28-20 CR Chest Portable Patient Name: KATARINA MELGOZA Diagnostic Radiology ACCESSION EXAM DATE/TIME PROCEDURE ORDERING PROVIDER [id number] 01/27/2022 06:38 EDT CR Chest Portable [id number] OJAQUIN CHEATHAM CPT code 33506 Reason For Exam (CR Chest Portable) s/p right lower lobectomy Report CHEST - PORTABLE: CLINICAL INDICATION: Status post right lower lobectomy. . TECHNIQUE: Portable AP COMPARISON: One day ago FINDINGS/IMPRESSION: Limitations: No significant limitations. Lines, tubes, and devices: Right basilar chest tube is unchanged Cardiomediastinal silhouette: Unchanged in appearance. Lungs/Pleura: Right-sided volume loss with streaky linear bibasilar opacities slightly progressed on the left, likely reflecting atelectasis. No sizable pleural effusions. No pneumothorax. Osseous structures: Unchanged in appearance. Soft tissues: No soft tissue abnormality is detected. Report Dictated on Final Dictated: 01/27/2022 8:56 am Dictating Physician: MD MEYER VLADIMIR Signed Date and Time: 01/27/2022 8:58 am Signed by: MD MEYER VLADIMIR Transcribed Date and Time: 01/27/2022 8:56 Normal [facility] Hemogram w/ Autodiffon 01-27 Abs Baso Cnt 0.0 10*3/uL Normal 0.0-0.2 [facility] Comment on above: Performed By: #### B MP3, HEMDF #### [facility] [address] [place] [address] Abs Neutrophile Cnt 14.0 10*3/uL High 1.8-7.0 [facility] Comment on above: Performed By: #### B MP3, HEMDF #### [facility] [address] [place] [address] Basophils/100 WBC (Bld) 0.1 % Normal 0.0-2.0 [facility] Comment on above: Performed By: #### B MP3, HEMDF #### [facility] [address] [place] [address] Eosinophils (Bld) [#/Vol] 0.0 10*3/uL Normal 0.0-0.5 [facility] Comment on above: Performed By: #### B MP3, HEMDF #### [facility] [address] [place] [address] Eosinophils/100 WBC (Bld) 0.0 % Low 1.0-6.0 [facility] Comment on above: Performed By: #### B MP3, HEMDF #### [facility] [address], [place] Erythrocyte distribution width (RBC) [Ratio] 14.3 % Normal 11.5-14.5 [facility] Comment on above: Performed By: #### B MP3, HEMDF #### [facility] [address] [place] [address] Granulocytes/100 WBC (Bld) 79.3 % Normal 40.0-80.0 [facility] Comment on above: Performed By: #### B MP3, HEMDF #### [facility] [address], [place] Hematocrit (Bld) [Volume fraction] 40.5 % Normal 40.0-52.0 [facility] Comment on above: Performed By: #### B MP3, HEMDF #### [facility] [address], [place] Hemoglobin (Bld) [Mass/Vol] 14.0 g/dL Normal 13.0-18.0 [facility] Comment on above: Performed By: #### B MP3, HEMDF #### [facility] [address], [place] Lymphocytes (Bld) [#/Vol] 2.2 10*3/uL Normal 1.0-4.3 [facility] Comment on above: Performed By: #### B MP3, HEMDF #### [facility] [address] [place] [address] Lymphocytes/100 WBC (Bld) 12.2 % Low 20.0-40.0 [facility] Comment on above: Performed By: #### B MP3, HEMDF #### [facility] [address], [place] MCH (RBC) [Entitic mass] 33.3 pg Normal 26.0-34.0 [facility] Comment on above: Performed By: #### B MP3, HEMDF #### [address] [address], [place] MCHC 34.6 % Normal 32.0-36.0 [facility] Comment on above: Performed By: #### B MP3, HEMDF #### [address] [address], [place] MCV (RBC) [Entitic vol] 96.2 fL Normal 80.0-98.0 [facility] Comment on above: Performed By: #### B MP3, HEMDF #### [address], [place] Monocytes (Bld) [#/Vol] 1.5 10*3/uL High 0.0-0.8 [facility] Comment on above: Performed By: #### B MP3, HEMDF #### [address] [address], [place] Monocytes/100 WBC (Bld) 8.4 % Normal 2.0-10.0 [facility] Comment on above: Performed By: #### B MP3, HEMDF #### [address] [address], [place] Platelet mean volume (Bld) [Entitic vol] 9.0 fL Normal 7.4-12.4 [facility] Comment on above: Result Comment: MPV is a calculated measurement using platelet volume ratio. Performed By: #### B MP3, HEMDF #### [address] [address], [place] Platelets (Bld) [#/Vol] 213 10*3/uL Normal 140-440 [facility] Comment on above: Performed By: #### B MP3, HEMDF #### [address] [address], [place] RBC (Bld) [#/Vol] 4.21 10*6/uL Low 4.40-5.90 [facility] Comment on above: Performed By: #### B MP3, HEMDF #### [address] [place] [address] WBC (Bld) [#/Vol] 17.6 10*3/uL High 3.6-10.7 [facility] Comment on above: Performed By: #### B MP3, HEMDF #### [facility] [address] [place] [address] XR CHEST PORTABLEon 01-28-20 Patient Name: KATARINA MELGOZA Diagnostic Radiology ACCESSION EXAM DATE/TIME PROCEDURE ORDERING PROVIDER [id number] 01/27/2022 06:38 EDT CR Chest Portable JOAQUIN MOORE CPT code 74679 Reason For Exam (CR Chest Portable) s/p right lower lobectomy Report CHEST - PORTABLE: CLINICAL INDICATION: Status post right lower lobectomy. . TECHNIQUE: Portable AP COMPARISON: One day ago FINDINGS/IMPRESSION: Limitations: No significant limitations. Lines, tubes, and devices: Right basilar chest tube is unchanged Cardiomediastinal silhouette: Unchanged in appearance. Lungs/Pleura: Right-sided volume loss with streaky linear bibasilar opacities slightly progressed on the left, likely reflecting atelectasis. No sizable pleural effusions. No pneumothorax. Osseous structures: Unchanged in appearance. Soft tissues: No soft tissue abnormality is detected. Report Dictated on --- Final --- Dictated: 01/27/2022 8:56 am Dictating Physician: MD MEYER VLADIMIR Signed Date and Time: 01/27/2022 8:58 am Signed by: MD MEYER VLADIMIR Transcribed Date and Time: 01/27/2022 8:56 [facility] Result, Unknown Provider - 01/27/2022 Patient Name: KATARINA MELGOZA Diagnostic Radiology ACCESSION EXAM DATE/TIME PROCEDURE ORDERING PROVIDER [id number] 01/27/2022 06:38 EDT CR Chest Portable JOAQUIN MOORE CPT code 05398 Reason For Exam (CR Chest Portable) s/p right lower lobectomy Report CHEST - PORTABLE: CLINICAL INDICATION: Status post right lower lobectomy. . TECHNIQUE: Portable AP COMPARISON: One day ago FINDINGS/IMPRESSION: Limitations: No significant limitations. Lines, tubes, and devices: Right basilar chest tube is unchanged Cardiomediastinal silhouette: Unchanged in appearance. Lungs/Pleura: Right-sided volume loss with streaky linear bibasilar opacities slightly progressed on the left, likely reflecting atelectasis. No sizable pleural effusions. No pneumothorax. Osseous structures: Unchanged in appearance. Soft tissues: No soft tissue abnormality is detected. Report Dictated on --- Final --- Dictated: 01/27/2022 8:56 am Dictating Physician: MD MEYER VLADIMIR Signed Date and Time: 01/27/2022 8:58 am Signed by: MD MEYER VLADIMIR Transcribed Date and Time: 01/27/2022 8:56 [facility] Work Phone: Radiology Study observation (narrative) [facility] Work Phone: XR CHEST PORTABLEOrdered By: Unknown Result on 01-27-2022 [facility] Basic Metabolic Panelon 01-11 Anion gap [Moles/Vol] 7 mmol/L Normal 3-13 [facility] Comment on above: Performed By: #### H ALEX BMP3 #### [facility] [address] [place] [address] Calcium [Mass/Vol] 8.8 mg/dL Normal 8.4-10.4 [facility] Comment on above: Performed By: #### H ALEX BMP3 #### [facility] [address] [place] [address] CO2 [Moles/Vol] 22 mmol/L Normal 22-[address] [facility] Comment on above: Performed By: #### H ALEX BMP3 #### [facility] [address] [place] [address] Glucose [Mass/Vol] 214 mg/dL High 70-100 [facility] Comment on above: Performed By: #### H ALEX BMP3 #### [facility] [address] [place], [place] Urea nitrogen [Mass/Vol] 19 mg/dL High 7-17 [facility] Comment on above: Performed By: #### H KATIE JOHNSON3 #### [address] Creatinine [Mass/Vol] 0.79 mg/dL Normal 0.52-1.25 [facility] Comment on above: Performed By: #### H KATIE JOHNSON3 #### [address] [address] [address], [place] eGFR OTHER > 90.0 Normal >60 [facility] Comment on above: Result Comment: KDIG O guidelines provide the following GFR categories: Stage GFR(ml/min/1.73 m2) Terms G1 >=90 Normal or high G2 60-89 Mildly decreased* G3a 45-59 Mildly to moderately decreased G3b 30-44 Moderately to severely decreased G4 15-29 Severely decreased G5 <15 Kidney failure *Relative to young adult level. In the absence of evidence of kidney damage, neither GFR category G1 nor G2 fulfill the criteria for CKD. The CKD-EPI equation is validated in individuals 18 years of age and older. Currently the best equation for estimating glomerular filtration rate (GFR) from serum creatinine in children is the Bedside Mauricio equation. It is less accurate in patients with extremes of muscle mass, restriction of dietary protein, ingestion of creatine, extra-renal metabolism of creatinine, or treatment with medications that affect renal tubular creatinine secretion. Performed By: #### H KATIE JOHNSON3 #### [address] [address] [place], [place] GFR/1.73 sq M.predicted among blacks MDRD (S/P/Bld) [Vol rate/Area] mL/min/{1.73_m2} Normal >60 [facility] Comment on above: Performed By: #### H KATIE JOHNSON3 #### [address] Potassium [Moles/Vol] 4.6 mmol/L Normal 3.5-5.1 [facility] Comment on above: Performed By: #### H KATIE JOHNSON3 #### [facility] Sodium [Moles/Vol] 134 mmol/L Low 135-145 [facility] Comment on above: Performed By: #### H TSERING JOHNSON #### [address] Chloride [Moles/Vol] 106 mmol/L Normal 98-107 [facility] Comment on above: Performed By: #### H TSERING JOHNSON #### [address] Anion gap [Moles/Vol] 7 mmol/L 3 - 13 mmol/L [facility] Calcium [Mass/Vol] 8.8 mg/dL 8.4 - 10. 4 mg/dL [facility] Chloride [Moles/Vol] 106 mmol/L 98 - 10 7 mmol/L [facility] CO2 [Moles/Vol] 22 mmol/L 22 - 30 mmol/L [facility] Creatinine [Mass/Vol] 0.79 mg/dL 0.52 - 1.25 mg/dL [facility] EGFR IF NonAfrican [place] >90.0 >60 mL/min [facility] Comment on above: KDIGO guidelines pro vide the following GFR categories: Stage GFR(ml/min/1.73 m2) Terms G1 >=90 Normal or high G2 60-89 Mildly decreased* G3a 45-59 Mildly to moderately decreased G3b 30-44 Moderately to severely decreased G4 15-29 Severely decreased G5 <15 Kidney failure *Relative to young adult level. In the absence of evidence of kidney damage, neither GFR category G1 nor G2 fulfill the criteria for CKD. The CKD-EPI equation is validated in individuals 18 years of age and older. Currently the best equation for estimating glomerular filtration rate (GFR) from serum creatinine in children is the Bedside Mauricio equation. It is less accurate in patients with extremes of muscle mass, restriction of dietary protein, ingestion of creatine, extra-renal metabolism of creatinine, or treatment with medications that affect renal tubular creatinine secretion. GFR/1.73 sq M.predicted among blacks MDRD (S/P/Bld) [Vol rate/Area] mL/min/{1.73_m2} >60 mL/min [facility] Glucose [Mass/Vol] 214 mg/dL High 70 - 100 mg/dL [facility] Interpretation and review of laboratory results Abnormal [facility] Potassium [Moles/Vol] 4.6 mmol/L 3.5 - 5.1 mmol/L [facility] Sodium [Moles/Vol] 134 mmol/L Low 135 - 145 mmol/L [facility] Urea nitrogen (BldV) [Mass/Vol] 19 mg/dL High 7 - 17 mg/dL [facility] Test Performed by [facility], [address] [place] [id number] [place] [address] LAB [facility] CBC with Auto Differentialon 01-26-2022 Absolute Baso # 0.0 10*3/uL 0.0 - 0.2 10*3/uL [facility] Absolute Neut # 12.6 10*3/uL High 1.8 - 7.0 10*3/uL [facility] Basophils/100 WBC (Bld) 0.1 % 0.0 - 2.0 % [facility] Eosinophils (Bld) [#/Vol] 0.0 10*3/uL 0.0 - 0.5 10*3/uL [facility] Eosinophils/100 WBC (Bld) 0.0 % Low 1.0 - 6.0 % [facility] Granulocytes/100 WBC (Bld) 89.5 % High 40.0 - 80.0 % [facility] Hematocrit (Bld) [Volume fraction] 41.0 % 40.0 - 52.0 % [facility] Hemoglobin (Bld) [Mass/Vol] 14.2 g/dL 13.0 - 18.0 g/dL [facility] Interpretation and review of laboratory results Abnormal [facility] Lymphocytes (Bld) [#/Vol] 1.0 10*3/uL 1.0 - 4.3 10*3/uL [facility] Lymphocytes/100 WBC (Bld) 7.3 % Low 20.0 - 40.0 % [facility] MCH (RBC) [Entitic mass] 33.3 pg 26.0 - 34.0 pg [facility] MCHC (RBC) [Mass/Vol] 34.6 % 32.0 - 36.0 % [facility] MCV (RBC) [Entitic vol] 96.1 fL 80.0 - 98.0 fL [facility] Monocytes (Bld) [#/Vol] 0.4 10*3/uL 0.0 - 0.8 10*3/uL [facility] Monocytes/100 WBC (Bld) 3.1 % 2.0 - 10.0 % [facility] Platelet distribution width (Bld) [Ratio] 14.5 % 11.5 - 14.5 % [facility] Platelet mean volume (Bld) [Entitic vol] 8.8 fL 7.4 - 12.4 fL [facility] Comment on above: MPV is a calculated measurement using platelet volume ratio. Platelets (Bld) [#/Vol] 228 10*3/uL 140 - 440 10*3/uL [facility] RBC (Bld) [#/Vol] 4.26 10*6/uL Low 4.40 - 5.9 0 10*6/uL [facility] WBC (Bld) [#/Vol] 14.1 10*3/uL High 3.6 - 10.7 10*3/uL [facility] Test Performed by [address] [address] [facility] Chest Portableon 01-27-20 CR Chest Portable [facility]: [id number] ACCESSION EXAM DATE/TIME PROCEDURE ORDERING PROVIDER [id number] 01/26/2022 06:58 EDT CR Chest Portable [id number] -JOAQUIN ALTMAN CPT code 82458 Reason For Exam (CR Chest Portable) s/p right lower lobectomy Report EXAM TYPE: RADIOLOGIC EXAMINATION, CHEST, SINGLE VIEW FRONTAL (CXR SINGLE VIEW) EXAM DATE AND TIME: 01/26/2022 6:58 AM EDT INDICATION: Lobectomy COMPARISON: 01/25/2022 TECHNIQUE: A single frontal view of the thorax was obtained and reviewed. Special views: None. IMPRESSION: 1. Lines/Tubes/Devices/Gatica rdware: Leads noted. Stable projection of right chest tube.. Please confirm position/function of devices/catheters clinically. 2. Lungs: Volume loss right hemithorax, stable compatible with lobectomy. Mild atelectasis left lung base. 3. Pleura: No significant effusion. No significant pneumothorax. 4. Heart and mediastinum: Limited due to technique. 5. Upper abdomen: No acute process seen. 6. 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: [place] : 1955 Requested By: LIVIA CAMPA Order Number: [id number] Reading MD: Jerry Bach Measurements Intervals Greenback Rate: 52 P: 55 CO: 144 QRS: 37 QRSD: 98 T: 99 QT: 436 QTc: 406 Interpretive Statements Sinus bradycardia Low voltage, extremity and precordial leads Posterior infarct, old Nonspecific T abnormalities, lateral leads Electronically Signed On 01-26-2022 11:19:10 EDT by Jerry Bach [facility] Jerry Valencia MD - 01/26/2022 [facility] Test Date: 2022-01-25 Pat Name: [facility] Department: [facility] Room: [facility] Gender: M 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 Room Attendant: [place] : 1955 Requested By: LIVIA CAMPA Order Number: [id number] Reading MD: Jerry Bach Measurements Intervals Greenback Rate: 52 P: 55 CO: 144 QRS: 37 QRSD: 98 T: 99 QT: 436 QTc: 406 Interpretive Statements Sinus bradycardia Low voltage, extremity and precordial leads Posterior infarct, old Nonspecific T abnormalities, lateral leads Electronically Signed On 01-26-2022 11:19:10 EDT by Jerry Bach [facility] Work Phone: EKG 12 LeadOrdered By: Jerry Bach on 01-26-2022 [facility] Work Phone: Hemogram w/ Autodiffon 01-26 Abs Baso Cnt 0.0 10*3/uL Normal 0.0-0.2 [facility] [employer] Comment on above: Performed By: #### H EMDF, BMP3 #### [facility] [address] [place] [address] Abs Neutrophile Cnt 12.6 10*3/uL High 1.8-7.0 [facility] Comment on above: Performed By: #### H EMDF, BMP3 #### [facility] [address] [place] [address] Basophils/100 WBC (Bld) 0.1 % Normal 0.0-2.0 [facility] Comment on above: Performed By: #### H EMDF, BMP3 #### [address] [place] [address] Eosinophils (Bld) [#/Vol] 0.0 10*3/uL Normal 0.0-0.5 [facility] Comment on above: Performed By: #### H EMDF, BMP3 #### [address] [address] [place] [address] Eosinophils/100 WBC (Bld) 0.0 % Low 1.0-6.0 [facility] Comment on above: Performed By: #### H EMDF, BMP3 #### [address] [address] [place] [address] Erythrocyte distribution width (RBC) [Ratio] 14.5 % Normal 11.5-14.5 [facility] Comment on above: Performed By: #### H EMDF, BMP3 #### [address] [address] [place] [address] Granulocytes/100 WBC (Bld) 89.5 % High 40.0-80.0 [facility] Comment on above: Performed By: #### H EMDF, BMP3 #### [facility] [address] [place] [address] Hematocrit (Bld) [Volume fraction] 41.0 % Normal 40.0-52.0 [facility] Comment on above: Performed By: #### H EMDF, BMP3 #### [address] [address] [place] [address] Hemoglobin (Bld) [Mass/Vol] 14.2 g/dL Normal 13.0-18.0 [facility] Comment on above: Performed By: #### H EMDF, BMP3 #### [facility] [address], [place] Lymphocytes (Bld) [#/Vol] 1.0 10*3/uL Normal 1.0-4.3 [facility] Comment on above: Performed By: #### H EMDF, BMP3 #### [facility] [address], [place] Lymphocytes/100 WBC (Bld) 7.3 % Low 20.0-40.0 [facility] Comment on above: Performed By: #### H EMDF, BMP3 #### [facility] [address], [place] MCH (RBC) [Entitic mass] 33.3 pg Normal 26.0-34.0 [facility] Comment on above: Performed By: #### H EMDF, BMP3 #### [facility] [address], [place] MCHC 34.6 % Normal 32.0-36.0 [facility] Comment on above: Performed By: #### H EMDF, BMP3 #### [facility] [address], [place] MCV (RBC) [Entitic vol] 96.1 fL Normal 80.0-98.0 [facility] Comment on above: Performed By: #### H EMDF, BMP3 #### [facility] [address], [place] Monocytes (Bld) [#/Vol] 0.4 10*3/uL Normal 0.0-0.8 [facility] Comment on above: Performed By: #### H EMDF, BMP3 #### [facility] [address], [place] Monocytes/100 WBC (Bld) 3.1 % Normal 2.0-10.0 [facility] Comment on above: Performed By: #### H EMDF, BMP3 #### [facility] [address], [place] Platelet mean volume (Bld) [Entitic vol] 8.8 fL Normal 7.4-12.4 [facility] Comment on above: Result Comment: MPV is a calculated measurement using platelet volume ratio. Performed By: #### H KATIE JOHNSON3 #### [facility] [address] [place] [address] Platelets (Bld) [#/Vol] 228 10*3/uL Normal 140-440 [facility] Comment on above: Performed By: #### H ALEX BMP3 #### [facility] [address] [place] [address] RBC (Bld) [#/Vol] 4.26 10*6/uL Low 4.40-5.90 [facility] Comment on above: Performed By: #### H ALEX BMP3 #### [facility] [address] [place] [address] WBC (Bld) [#/Vol] 14.1 10*3/uL High 3.6-10.7 [facility] Comment on above: Performed By: #### H ALEX BMP3 #### [facility] [address] [place] [address] XR CHEST PORTABLEon 01-27-20 Patient Name: KATARINA MELGOZA Diagnostic Radiology ACCESSION EXAM DATE/TIME PROCEDURE ORDERING PROVIDER [id number] 01/26/2022 06:58 EDT CR Chest Portable [id number] SCOTT CPT code 59657 Reason For Exam (CR Chest Portable) s/p right lower lobectomy Report EXAM TYPE: RADIOLOGIC EXAMINATION, CHEST, SINGLE VIEW FRONTAL (CXR SINGLE VIEW) EXAM DATE AND TIME: 01/26/2022 6:58 AM EDT INDICATION: Lobectomy COMPARISON: 01/25/2022 TECHNIQUE: A single frontal view of the thorax was obtained and reviewed. Special views: None. IMPRESSION: 1. Lines/Tubes/Devices/Gatica rdware: Leads noted. Stable projection of right chest tube.. Please confirm position/function of devices/catheters clinically. 2. Lungs: Volume loss right hemithorax, stable compatible with lobectomy. Mild atelectasis left lung base. 3. Pleura: No significant effusion. No significant pneumothorax. 4. Heart and mediastinum: Limited due to technique. 5. Upper abdomen: No acute process seen. 6. Thorax:No acute bony process Report Dictated on --- Final --- Dictated: 01/26/2022 7:13 am Dictating Physician: MD RAMIREZ JOHN Signed Date and Time: 01/26/2022 7:14 am Signed by: MD RAMIREZ JOHN Transcribed Date and Time: 01/26/2022 7:13 [facility] Fermin Ramirez MD - 01/26/2022 Patient Name: KATARINA MELGOZA Diagnostic Radiology ACCESSION EXAM DATE/TIME PROCEDURE ORDERING PROVIDER [id number] 01/26/2022 06:58 EDT CR Chest Portable [id number] -JOAQUIN ALTMAN CPT code 29271 Reason For Exam (CR Chest Portable) s/p right lower lobectomy Report EXAM TYPE: RADIOLOGIC EXAMINATION, CHEST, SINGLE VIEW FRONTAL (CXR SINGLE VIEW) EXAM DATE AND TIME: 01/26/2022 6:58 AM EDT INDICATION: Lobectomy COMPARISON: 01/25/2022 TECHNIQUE: A single frontal view of the thorax was obtained and reviewed. Special views: None. IMPRESSION: 1. Lines/Tubes/Devices/Gatica rdware: Leads noted. Stable projection of right chest tube.. Please confirm position/function of devices/catheters clinically. 2. Lungs: Volume loss right hemithorax, stable compatible with lobectomy. Mild atelectasis left lung base. 3. Pleura: No significant effusion. No significant pneumothorax. 4. Heart and mediastinum: Limited due to technique. 5. Upper abdomen: No acute process seen. 6. Thorax:No acute bony process Report Dictated on --- Final --- Dictated: 01/26/2022 7:13 am Dictating Physician: MD RAMIREZ JOHN Signed Date and Time: 01/26/2022 7:14 am Signed by: MD RAMIREZ JOHN Transcribed Date and Time: 01/26/2022 7:13 [facility] Work Phone: Radiology Study observation (narrative) [facility] Work Phone: XR CHEST PORTABLEOrdered By: Fermin Ramirez on 01-26-2022 [facility] Work Phone: Arterial Blood Gaseson 01-25 CO2 [Moles/Vol] 25.8 mmol/L Normal 23.0-27.0 [facility] Comment on above: Performed By: #### A BG #### [facility] [address], [place] HCO3 (Bld) [Moles/Vol] 24.0 mmol/L Normal 21.0-25.0 [facility] Comment on above: Performed By: #### A BG #### [address] [place], [place] Hemoglobin (Bld) [Mass/Vol] 15.6 g/dL Normal ScreenOnly [facility] Comment on above: Performed By: #### A BG #### [address] [place], [place] Oxygen (Bld) [Partial pressure] 66.5 mm[Hg] Low 80.0-100.0 [facility] Comment on above: Performed By: #### A BG #### [address] [place], [place] Oxygen saturation in Blood 88.2 % Low 95.0-100.0 [facility] Comment on above: Performed By: #### A BG #### [address] [place], [place] pCO2 61.4 mm[Hg] High 35.0-45.0 [facility] Comment on above: Performed By: #### A BG #### [facility] [address], [place] pH 7.209 Low 7.350-7.450 [facility] Comment on above: Performed By: #### A BG #### [address] [place], [place] Std Base Excess -5.1 mmol/L Low -3.0-3.0 [facility] Comment on above: Performed By: #### A BG #### [address] [place], [place] FIO2 1.0 Normal [facility] Comment on above: Performed By: #### A BG #### [address] [place], [place] CO2 [Moles/Vol] 25.8 mmol/L Normal 23.0-27.0 [facility] Comment on above: Performed By: #### A BG #### [address] [place], [place] HCO3 (Bld) [Moles/Vol] 24.3 mmol/L Normal 21.0-25.0 [facility] Comment on above: Performed By: #### A BG #### [address] [place], [place] Hemoglobin (Bld) [Mass/Vol] 15.1 g/dL Normal ScreenOnly [facility] Comment on above: Performed By: #### A BG #### [address] [place], [place] Oxygen (Bld) [Partial pressure] 417.1 mm[Hg] High 80.0-100.0 [facility] Comment on above: Performed By: #### A BG #### [address] [place], [place] Oxygen saturation in Blood 99.7 % Normal 95.0-100.0 [facility] Comment on above: Performed By: #### A BG #### [address] [place], [place] pCO2 49.3 mm[Hg] High 35.0-45.0 [facility] Comment on above: Performed By: #### A BG #### [address] [place], [place] pH 7.311 Low 7.350-7.450 [facility] Comment on above: Performed By: #### A BG #### [address] [place], [place] Std Base Excess -2.4 mmol/L Normal -3.0-3.0 [facility] Comment on above: Performed By: #### A BG #### [facility] [address], [place] FIO2 No data Normal [facility] Comment on above: Performed By: #### A BG #### [facility] [address], [place] Basic Metabolic Panelon 06-1 Anion gap [Moles/Vol] 8 mmol/L Normal 3-13 [facility] Comment on above: Performed By: #### H EMDF BMP3M ####[facility] [id number] [place], [place] Calcium [Mass/Vol] 9.1 mg/dL Normal 8.4-10.4 [facility] Comment on above: Performed By: #### H EMDF, BMP3M ####[facility] [id number] [place], [place] CO2 [Moles/Vol] 24 mmol/L Normal 22-[address] [facility] Comment on above: Performed By: #### H EMDF, BMP3M ####[facility] [id number] [place], [place] Glucose [Mass/Vol] 126 mg/dL High 70-100 [facility] Comment on above: Performed By: #### H EMDF, BMP3M ####[facility] [id number] [place], [place] Urea nitrogen [Mass/Vol] 17 mg/dL Normal 7-17 [facility] Comment on above: Performed By: #### H EMDF, BMP3M ####[facility] [id number] [place], [place] eGFR OTHER > 90.0 Normal >60 [facility] Comment on above: Result Comment: KDIG O guidelines provide the following GFR categories: Stage GFR(ml/min/1.73 m2) Terms G1 >=90 Normal or high G2 60-89 Mildly decreased* G3a 45-59 Mildly to moderately decreased G3b 30-44 Moderately to severely decreased G4 15-29 Severely decreased G5 <15 Kidney failure *Relative to young adult level. In the absence of evidence of kidney damage, neither GFR category G1 nor G2 fulfill the criteria for CKD. The CKD-EPI equation is validated in individuals 18 years of age and older. Currently the best equation for estimating glomerular filtration rate (GFR) from serum creatinine in children is the Bedside Mauricio equation. It is less accurate in patients with extremes of muscle mass, restriction of dietary protein, ingestion of creatine, extra-renal metabolism of creatinine, or treatment with medications that affect renal tubular creatinine secretion. Performed By: #### TSERING AGUILERAM ####[address] [place] [address] Potassium [Moles/Vol] 4.1 mmol/L Normal 3.5-5.1 [facility] Comment on above: Performed By: #### KATIE AGUILERA3M ####[address] [address] Chloride [Moles/Vol] 105 mmol/L Normal 98-107 [facility] Comment on above: Performed By: #### KATIE AGUILERA3M ####[address] Sodium [Moles/Vol] 137 mmol/L Normal 135-145 [facility] Comment on above: Performed By: #### KATIE AGUILERA3M ####[address] [address] Creatinine [Mass/Vol] 0.72 mg/dL Normal 0.52-1.25 [facility] Comment on above: Performed By: #### KATIE AGUILERA3M ####[address] [address] GFR/1.73 sq M.predicted among blacks MDRD (S/P/Bld) [Vol rate/Area] mL/min/{1.73_m2} Normal >60 [facility] Comment on above: Performed By: #### KATIE AGUILERA3M ####[address] [address] Basic Metabolic Panel w/ Ref rangel to MGon 01-25-2022 Anion gap [Moles/Vol] 8 mmol/L 3 - 13 mmol/L [facility] Calcium [Mass/Vol] 9.1 mg/dL 8.4 - 10. 4 mg/dL [facility] Chloride [Moles/Vol] 105 mmol/L 98 - 10 7 mmol/L [facility] CO2 [Moles/Vol] 24 mmol/L 22 - 30 mmol/L [facility] EGFR IF NonAfrican [place] >90.0 >60 mL/min [facility] Comment on above: KDIGO guidelines pro vide the following GFR categories: Stage GFR(ml/min/1.73 m2) Terms G1 >=90 Normal or high G2 60-89 Mildly decreased* G3a 45-59 Mildly to moderately decreased G3b 30-44 Moderately to severely decreased G4 15-29 Severely decreased G5 <15 Kidney failure *Relative to young adult level. In the absence of evidence of kidney damage, neither GFR category G1 nor G2 fulfill the criteria for CKD. The CKD-EPI equation is validated in individuals 18 years of age and older. Currently the best equation for estimating glomerular filtration rate (GFR) from serum creatinine in children is the Bedside Mauricio equation. It is less accurate in patients with extremes of muscle mass, restriction of dietary protein, ingestion of creatine, extra-renal metabolism of creatinine, or treatment with medications that affect renal tubular creatinine secretion. Glucose [Mass/Vol] 126 mg/dL High 70 - 100 mg/dL [facility] Interpretation and review of laboratory results Abnormal [facility] Potassium [Moles/Vol] 4.1 mmol/L 3.5 - 5.1 mmol/L [facility] Sodium [Moles/Vol] 137 mmol/L 135 - 145 mmol/L [facility] Urea nitrogen (BldV) [Mass/Vol] 17 mg/dL 7 - 17 mg/dL [facility] Test Performed by [facility], [address] [place] [id number] [place] [address] LAB [facility] Blood Gas, Arterialon 2021 Base Excess, Arterial -5.1 mmol/L Low -3.0 - 3.0 mmol/L [facility] CO2 [Moles/Vol] 25.8 mmol/L 23.0 - 27.0 mmol/L [facility] FIO2 Arterial 1.0 [facility] HCO3 (Bld) [Moles/Vol] 24.0 mmol/L 21.0 - 25.0 mmol/L [facility] Hemoglobin (Bld) [Mass/Vol] 15.6 g/dL ScreenOnly [facility] Interpretation and review of laboratory results Abnormal [facility] Oxygen saturation in Blood 88.2 % Low 95.0 - 100.0 % [facility] pCO2, Arterial 61.4 mm[Hg] High 35.0 - 45.0 mm[Hg] [facility] pH, Arterial 7.209 Low [facility] pO2, Arterial 66.5 mm[Hg] Low 80.0 - 100.0 mm[Hg] [facility] Test Performed by [address] LAB [facility] Base Excess, Arterial -2.4 mmol/L -3.0 - 3.0 mmol/L [facility] CO2 [Moles/Vol] 25.8 mmol/L 23.0 - 27.0 mmol/L [facility] FIO2 Arterial No data [facility] HCO3 (Bld) [Moles/Vol] 24.3 mmol/L 21.0 - 25.0 mmol/L [facility] Hemoglobin (Bld) [Mass/Vol] 15.1 g/dL ScreenOnly [facility] Interpretation and review of laboratory results Abnormal [facility] Oxygen saturation in Blood 99.7 % 95.0 - 100.0 % [facility] pCO2, Arterial 49.3 mm[Hg] High 35.0 - 45.0 mm[Hg] [facility] pH, Arterial 7.311 Low [facility] pO2, Arterial 417.1 mm[Hg] High 80.0 - 100.0 mm[Hg] [facility] Test Performed by [address] LAB [facility] CBC with Auto Differentialon 01-25-2022 Absolute Baso # 0.0 10*3/uL 0.0 - 0.2 10*3/uL [facility] Absolute Neut # 4.3 10*3/uL 1.8 - 7.0 10*3/uL [facility] Basophils/100 WBC (Bld) 0.4 % 0.0 - 2.0 % [facility] Eosinophils (Bld) [#/Vol] 0.2 10*3/uL 0.0 - 0.5 10*3/uL [facility] Eosinophils/100 WBC (Bld) 2.3 % 1.0 - 6.0 % [facility] Granulocytes/100 WBC (Bld) 53.3 % 40.0 - 80.0 % [facility] Hematocrit (Bld) [Volume fraction] 44.0 % 40.0 - 52.0 % [facility] Hemoglobin (Bld) [Mass/Vol] 15.4 g/dL 13.0 - 18.0 g/dL [facility] Interpretation and review of laboratory results Abnormal [facility] Lymphocytes (Bld) [#/Vol] 2.6 10*3/uL 1.0 - 4.3 10*3/uL [facility] Lymphocytes/100 WBC (Bld) 32.3 % 20.0 - 40.0 % [facility] MCH (RBC) [Entitic mass] 33.5 pg 26.0 - 34.0 pg [facility] MCHC (RBC) [Mass/Vol] 34.9 % 32.0 - 36.0 % [facility] MCV (RBC) [Entitic vol] 96.0 fL 80.0 - 98.0 fL [facility] Monocytes (Bld) [#/Vol] 0.9 10*3/uL High 0.0 - 0.8 10*3/uL [facility] Monocytes/100 WBC (Bld) 11.7 % High 2.0 - 10.0 % [facility] Platelet distribution width (Bld) [Ratio] 14.2 % 11.5 - 14.5 % [facility] Platelet mean volume (Bld) [Entitic vol] 8.5 fL 7.4 - 12.4 fL [facility] Comment on above: MPV is a calculated measurement using platelet volume ratio. Platelets (Bld) [#/Vol] 241 10*3/uL 140 - 440 10*3/uL [facility] RBC (Bld) [#/Vol] 4.58 10*6/uL 4.40 - 5.9 0 10*6/uL [facility] WBC (Bld) [#/Vol] 8.1 10*3/uL 3.6 - 10.7 10*3/uL [facility] Test Performed by [facility] [id number] [place] [address] LAB [facility] Chest Portableon 01-26-20 22 CR Chest Portable Patient Name: KATARINA MELGOZA Diagnostic Radiology ACCESSION EXAM DATE/TIME PROCEDURE ORDERING PROVIDER [id number] 01/25/2022 19:54 EDT CR Chest Portable [id number] -JOAQUIN ALTMAN CPT code 97312 Reason For Exam (CR Chest Portable) s/p Right lower lobectomy Report CHEST PORTABLE CLINICAL INDICATION: s/p Right lower lobectomy TECHNIQUE: Portable chest x-ray(s). COMPARISON: November,. FINDINGS: Right basilar thoracostomy tube and some overlying subcutaneous emphysema. Cardiac and mediastinal silhouette within normal limits. Lungs show mild and reticular probable atelectatic change in projected over the lung bases, right greater than left. No significant vascular congestion. No focal consolidation or apparent pneumothorax. Bony thorax grossly unremarkable. IMPRESSION: 1. Interval placement of right basilar thoracostomy tube. 2. Probable bibasilar atelectasis. No other acute findings. Report Dictated on Workstation: [email or web address] Final Dictated: 01/25/2022 8:05 pm Dictating Physician: MD ROSARIO WENDELL Signed Date and Time: 01/25/2022 8:07 pm Signed by: MD ROSARIO WENDELL Transcribed Date and Time: 01/25/2022 8:05 Normal [facility] Hemogram w/ Autodiffon 01-25 Abs Baso Cnt 0.0 10*3/uL Normal 0.0-0.2 [facility] Comment on above: Performed By: #### H KATIE JOHNSON3M #### [facility] [address] [place] [address] Abs Neutrophile Cnt 4.3 10*3/uL Normal 1.8-7.0 [facility] Comment on above: Performed By: #### H KATIE JOHNSON3M #### [facility] [address] [place] [address] Basophils/100 WBC (Bld) 0.4 % Normal 0.0-2.0 [facility] Comment on above: Performed By: #### H KATIE JOHNSON3M #### [facility] [address] [place] [address] Eosinophils (Bld) [#/Vol] 0.2 10*3/uL Normal 0.0-0.5 [facility] Comment on above: Performed By: #### H EMDF, BMP3M #### [facility] [address] [place] [address] Eosinophils/100 WBC (Bld) 2.3 % Normal 1.0-6.0 [facility] Comment on above: Performed By: #### H EMDF BMP3M #### [facility] [address] [place] [address] Erythrocyte distribution width (RBC) [Ratio] 14.2 % Normal 11.5-14.5 [facility] Comment on above: Performed By: #### H EMDF BMP3M #### [address] [place] [address] Granulocytes/100 WBC (Bld) 53.3 % Normal 40.0-80.0 [facility] Comment on above: Performed By: #### H EMDF BMP3M #### [address] [place] [address] Hematocrit (Bld) [Volume fraction] 44.0 % Normal 40.0-52.0 [facility] Comment on above: Performed By: #### H EMDF BMP3M #### [address] [place] [address] Hemoglobin (Bld) [Mass/Vol] 15.4 g/dL Normal 13.0-18.0 [facility] Comment on above: Performed By: #### H EMDF, BMP3M #### [address] [place] [address] Lymphocytes (Bld) [#/Vol] 2.6 10*3/uL Normal 1.0-4.3 [facility] Comment on above: Performed By: #### H EMDF, BMP3M #### [address] [place] [address] Lymphocytes/100 WBC (Bld) 32.3 % Normal 20.0-40.0 [facility] Comment on above: Performed By: #### H EMDF, BMP3M #### [address] [place] [address] MCH (RBC) [Entitic mass] 33.5 pg Normal 26.0-34.0 [facility] Comment on above: Performed By: #### H ALEX BMP3M #### [address] [place], [place] MCHC 34.9 % Normal 32.0-36.0 [facility] Comment on above: Performed By: #### H ALEX BMP3M #### [address] [address] [place], [place] MCV (RBC) [Entitic vol] 96.0 fL Normal 80.0-98.0 [facility] Comment on above: Performed By: #### H ALEX BMP3M #### [address] [address] [place], [place] Monocytes (Bld) [#/Vol] 0.9 10*3/uL High 0.0-0.8 [facility] Comment on above: Performed By: #### H ALEX BMP3M #### [address] Monocytes/100 WBC (Bld) 11.7 % High 2.0-10.0 [facility] Comment on above: Performed By: #### H ALEX BMP3M #### [address] Platelet mean volume (Bld) [Entitic vol] 8.5 fL Normal 7.4-12.4 [facility] Comment on above: Result Comment: MPV is a calculated measurement using platelet volume ratio. Performed By: #### H ALEX BMP3M #### [address] [place], [place] Platelets (Bld) [#/Vol] 241 10*3/uL Normal 140-440 [facility] Comment on above: Performed By: #### H ALEX BMP3M #### [address] RBC (Bld) [#/Vol] 4.58 10*6/uL Normal 4.40-5.90 [facility] Comment on above: Performed By: #### H ALEX BMP3M #### [facility] [address] [place] [address] WBC (Bld) [#/Vol] 8.1 10*3/uL Normal 3.6-10.7 [facility] Comment on above: Performed By: #### H EMDF, BMP3M #### [facility] [address] [place] [address] OPERATIVE REPORTon 2 Ordered by an unspecified provider. [facility] Op Noteon 01-25-2022 Op Note Livia Campa DO , Cardiothoracic Surgery [facility] OPERATIVE REPORT PATIENT: Katarina Melgoza Date of : 1955 Service Date: 01/25/2022 SURGEON: Livia Campa DO, MS BALE PILER: Shantelle Grimaldo PRE-OPERATIVE DIAGNOSES: 1. Right Lower lobe NSCLC 2. Mediastinal adenopathy POST-OPERATIVE DIAGNOSES: 1. Right Lower lobe NSCLC 2. Mediastinal adenopathy PROCEDURE: 1. Right robotic assisted thoracoscopy 2. Flexible Bronchoscopy 3. Right Lower lobectomy 4. Mediastinal lymph node dissection FINDINGS: RLL mass consistent with known malignancy, mild intrathoracic adhesions SPECIMENS: 1. Right Lower Lobe 2. Mediastinal Lymph Nodes Stations 2R, 4R, 7, 9R, 10R DRAINS: 1. 24Fr Chest Tube DISPOSITION: The patient was extubated in the operating room and taken to the recovery room in stable condition. The patient tolerated the procedure well. COMPLICATIONS: None ANESTHESIA TYPE: General endotracheal; ESTIMATED BLOOD LOSS: 50mL PREOPERATIVE MEDICATIONS: Pre-operative IV antibiotics: Ancef INDICATIONS FOR PROCEDURE: The patient is a 66 y.o. male with right lower lobe nodule. He was evaluated at a [facility] and found to have NSCLC with pathologically negative mediastinal lymph node sampling. They were assessed preoperatively and found to have adequate lung function. The patient was evaluated and surgical intervention was recommended. The risks, benefits and options of the procedure and additional possible interventions were reviewed and all questions were answered to the patient's satisfaction. Risks discussed included but is not limited to bleeding, infection, pneumonia, cardiac arrhythmia, myocardial infarction, deep vein thrombosis, pulmonary embolism, and . They agree andconsent to procedure. DESCRIPTION OF PROCEDURE: The patient was transported to the operating room and identified by name and number. An operating room team time out was performed confirming the identity of the patient and the planned procedure. The patient was placed on the operating room table in the supine position. The patient received IV Ancef prior to the incision for antimicrobial prophylaxis. In addition compression boots were placed on lower extremities for DVT prophylaxis. Intravenous and appropriate monitoring lines were placed by the anesthesia team and general endotracheal anesthesia was induced. The patient was then intubated with a double-lumen endotracheal tube by the anesthesia team. A Leigh catheter and arterial line were placed. After a time out, a flexible bronchoscopy was performed. The flexible bronchoscope was advanced through the endotracheal tube advanced to the belinda. The belinda appeared to be sharp. The right mainstem bronchus was within normal limits. The right upper lobe bronchial orifice was normal. The bronchus intermedius was normal. The right middle lobe and right lower lobe bronchial orifices were normal.The left mainstem bronchus was entered and was normal. The left upper lobe and left lower lobe bronchial orifices were normal. The patient was then positioned in the left lateral decubitus position with the right chest facing upward and ensuring bony prominences were well-padded. Endotracheal tube position was confirmed by flexible bronchoscopy, allowing for selective lung ventilation. The right chest was prepped with chlorhexidine and the patient was draped in normal sterile fashion. After a time out for universal protocol, the lung was isolated. An 8mm thoracoscopic incision was created in the 8th intercostal space at the posterior axillary line. The subcutaneous adipose tissue was divided with the Bovie electrocautery. The pleural space was then entered under direct visualization. An 8mm robotic port was placed through the incision and the camera was introduced. Two additional 8 mm and a 12 mm robotic ports were placed under direct visualization in the eighth intercostal space costal space. A 12 mm air seal assistant to the director port was placed just above the diaphragm under direct visualization. The robot was then docked and targeting performed. The camera was placed through the assistant to the director port and a tip up, long bipolar and caudiere were introduced. The camera was then returned to the appropriate robotic arm and I proceeded to the console. The chest wall, pleura, right upper, middle and lower lobes were visually inspected. There was no evidence of pleural dissemination or effusion. Mild intrathoracic adhesions were present throughout the thorax. The intrathoracic adhesions were lyses utilizing bipolar electrocautery. The right inferior pulmonary ligament was dissected to the level of the right inferior pulmonary vein. Level 9R lymph nodes were excised and sent for permanent pathology. Pleural dissection was continued ove (more content not included)... Normal [facility] Surgical Pathologyon 022 Surgical Pathology [id number] [facility] PATHOLOGY AND LABORATORY MEDICINE [address] [place] [address] FINAL SURGICAL PATHOLOGY REPORT NAME: KATARINA MELGOZA : 1955 66 Y M BILLING NO.: [id number] LOCATION: [facility] PROCEDURE 01/25/2022 DATE: SURGEON: LIVIA CAMPA DO RECEIVED 01/26/2022 DATE: ATTENDING: LIVIA CAMPA DO REPORT DATE: 02/17/2022 COPIES TO: DIAGNOSIS: A. LEVEL 9R NODE, BIOPSY - MALIGNANCY NOT IDENTIFIED. B. LEVEL 7R LYMPH NODE, BIOPSY - MALIGNANCY NOT IDENTIFIED. C. LEVEL 10 R LYMPH NODE, BIOPSY - MALIGNANCY NOT IDENTIFIED D. LEVEL 2R LYMPH NODE, BIOPSY - MALIGNANCY NOT IDENTIFIED E. LEVEL 4R LYMPH NODE, BIOPSY - MALIGNANCY NOT IDENTIFIED F. RIGHT LOWER LUNG, LOBECTOMY - INVASIVE NONSMALL CELL CARCINOMA. SEE COMMENT. SPECIMEN Procedure: Lobectomy Specimen Laterality: Right TUMOR Tumor Focality: Single focus Tumor Site: Lower lobe of lung Tumor Size Total Tumor Size (size of entire tumor): Greatest Dimension (Centimeters) - 2.3 cm Histologic Type: Non-small cell carcinoma, subtype cannot be determined Visceral Pleura Invasion: Present Direct Invasion of Adjacent Structures: Not applicable (no adjacent structures present) Treatment Effect: No known presurgical therapy Lymphovascular Invasion: Not identified MARGINS Margin Status for Invasive Carcinoma: All margins negative for invasive carcinoma Closest Margin(s) to Invasive Carcinoma: Bronchial Margin Status for Non-Invasive Tumor: All margins negative for non-invasive tumor REGIONAL LYMPH NODES Lymph Node(s) from Prior Procedures: No known prior lymph node sampling performed Regional Lymph Node Status: All regional lymph nodes negative for tumor Number of Lymph Nodes Examined: 8 Margarita Site(s) Examined: 2R: Upper paratracheal, 4R: Lower paratracheal, 9R: Pulmonary ligament, 10R: Hilar, 12R: Lobar, 7: Subcarinal PATHOLOGIC STAGE CLASSIFICATION (pTNM, AJCC 8th Edition) The suffix m (or a specific number) should only be used in the setting of multifocal ground-glass / lepidic nodules that histologically present as adenocarcinomas with prominent lepidic component or multifocal tumors of same histologic type that are too numerous for individual separate synoptic report and that are not better classified as intrapulmonary metastases (e.g. numerous carcinoid tumors). Multiple primary lung cancers showing different histologic type or different morphology based on comprehensive histologic subtyping are better staged as independent tumors without m suffix. pT Category: pT2a pN Category: pN0 Comment(s): The morphology of the tumor is challening to classify, with elements that appear consistent with adenocarcinoma and areas suggestive of squamous differentiation. Immunohistochemical stains, however reveal the tumor to be positive for pancytokeratin, and negative for TTF-1, Napsin A, CK5/6, and p40. Additional stains were performed and show the tumor to be positive for CK7 and with patchy positivity for CK20, calretinin, and vimentin. Stains for AQUILES-3, WT-1, D240, NKX3.1, CDX2, p63, synaptophysin, chromogranin, and SATB2 are negative. The staining does not support a squamous carcinoma, and favors against a mesothelioma. Though this is being classified and staged as a primary lung carcinoma, the positivity for CK20 does raise the possibility of this being a metastatic lesion without any site-specific staining. Clinical correlation is required. OIL WELL DRILLER TUMOR BLOCK(S): F5 SMT/SMT Signature> S CAROLINA CERVANTES M.D. CLINICAL INFORMATION: R91.1 SPECIMEN: (A) LYMPH NODE(S) SPECIMEN (B) LYMPH NODE(S) SPECIMEN (C) LYMPH NODE(S) SPECIMEN (D) LYMPH NODE(S) SPECIMEN (E) LYMPH NODE(S) SPECIMEN (F) LUNG, TOTAL, LOBE, OR SEGMENTAL RESECTION GROSS DESCRIPTION: A. Received in formalin labeled level 9R lymph node are two, irregular, yellow-gutierrez to black tissue segments. The first and smallest measures 0.3 x 0.2 cm and is entirely submitted in cassette one. The second, largest measures 2.5 x 1.5 x 0.8 cm. The segment upon transection has a sim-black cut surface. The segment is bisected and entirely submitted in cassette two. B. Received in formalin labeled level 7R lymph node is an irregular, nodular, sim-black tissue segment measuring 4 x 2.5 x 1 cm. On transection cut surfaces are homogenous and sim-black. The specimen is sectioned and is entirely submitted in a total of four cassettes. C. Received in formalin labeled level 10R lymph node are three, small, nodular, g (more content not included)... Normal [facility] TS GELon 01-25-2022 TS GEL ABO Group: A Rh, Gel: NEG Antibody Screen Gel: NEG Normal [facility] Comment on above: Performed By: #### T SGL ####[facility] TYPE AND SCREENon 01-25-2022 ABO Grouping A [facility] Rh Type Negative [facility] Test Performed by [facility], [address] [place] [id number] [facility] XR CHEST PORTABLEon 01-26-20 Patient Name: KATARINA MELGOZA Diagnostic Radiology ACCESSION EXAM DATE/TIME PROCEDURE ORDERING PROVIDER [id number] 01/25/2022 19:54 EDT CR Chest Portable [id number] -JOAQUIN ALTMAN CPT code 65683 Reason For Exam (CR Chest Portable) s/p Right lower lobectomy Report CHEST PORTABLE CLINICAL INDICATION: s/p Right lower lobectomy TECHNIQUE: Portable chest x-ray(s). COMPARISON: November,. FINDINGS: Right basilar thoracostomy tube and some overlying subcutaneous emphysema. Cardiac and mediastinal silhouette within normal limits. Lungs show mild and reticular probable atelectatic change in projected over the lung bases, right greater than left. No significant vascular congestion. No focal consolidation or apparent pneumothorax. Bony thorax grossly unremarkable. IMPRESSION: 1. Interval placement of right basilar thoracostomy tube. 2. Probable bibasilar atelectasis. No other acute findings. Report Dictated on Workstation: HARVINDER --- Final --- Dictated: 01/25/2022 8:05 pm Dictating Physician: MD ROSARIO WENDELL Signed Date and Time: 01/25/2022 8:07 pm Signed by: MD ROSARIO WENDELL Transcribed Date and Time: 01/25/2022 8:05 [facility] Ruperto Daniel MD - 01/25/2022 Patient Name: KATARINA MELGOZA Diagnostic Radiology ACCESSION EXAM DATE/TIME PROCEDURE ORDERING PROVIDER [id number] 01/25/2022 19:54 EDT CR Chest Portable [id number] -JOAQUIN ALTMAN CPT code 75693 Reason For Exam (CR Chest Portable) s/p Right lower lobectomy Report CHEST PORTABLE CLINICAL INDICATION: s/p Right lower lobectomy TECHNIQUE: Portable chest x-ray(s). COMPARISON: November,. FINDINGS: Right basilar thoracostomy tube and some overlying subcutaneous emphysema. Cardiac and mediastinal silhouette within normal limits. Lungs show mild and reticular probable atelectatic change in projected over the lung bases, right greater than left. No significant vascular congestion. No focal consolidation or apparent pneumothorax. Bony thorax grossly unremarkable. IMPRESSION: 1. Interval placement of right basilar thoracostomy tube. 2. Probable bibasilar atelectasis. No other acute findings. Report Dictated on Workstation: HARVINDER --- Final --- Dictated: 01/25/2022 8:05 pm Dictating Physician: MD ROSARIO WENDELL Signed Date and Time: 01/25/2022 8:07 pm Signed by: MD ROSARIO WENDELL Transcribed Date and Time: 01/25/2022 8:05 [facility] Work Phone: Radiology Study observation (narrative) [facility] Work Phone: XR CHEST PORTABLEOrdered By: Ruperto Rosario on 01-25-2022 [facility] Work Phone: Lab Report: Lipid Profileon 09-27-2017 Cholesterol 128 mg/dL Invalid Interpretation Code 200 [facility] Work Phone: [phone] HDL Cholesterol 35 mg/dL Low [facility] Work Phone: [phone] LDL Cholesterol 61 mg/dL Invalid Interpretation Code 0-130 [facility] Work Phone: [phone] Triglyceride 162 mg/dL Invalid Interpretation Code [facility] Work Phone: [phone] very low density lipoproteins 32 mg/dL Invalid Interpretation Code 5-40 [facility] Work Phone: [phone] Lab Report: Liver Profileon 09-27-2017 Alanine aminotransferase (ALT) 42 U/L Invalid Interpretation Code 16-61 [facility] Work Phone: [phone] Albumin 3.7 g/dL Invalid Interpretation Code 3.2-5.0 [facility] Work Phone: [phone] Alkaline phosphatase (ALP) 157 U/L High 45-117 [facility] Work Phone: Aspartate aminotransferase (AST) 22 U/L Invalid Interpretation Code 15-37 [facility] Work Phone: [phone] Bilirubin (direct) 0.13 mg/dL Invalid Interpretation Code 0.00-0.30 [facility] Work Phone: [phone] Bilirubin (total) 0.60 mg/dL Invalid Interpretation Code 0.20-1.00 [facility] Work Phone: [phone] Globulin 4.2 g/dL Invalid Interpretation Code 2.2-4.2 [facility] Work Phone: [phone] Protein 7.9 g/dL Invalid Interpretation Code 6.4-8.2 [facility] Work Phone: [phone] Clinical Lists Update: Prelo recruiting specialist 03-13-2017 Albumin mass conc 3.9 g/dL [facility] Work Phone: [phone] Alkaline phosphatase (ALP) 141 U/L High [facility] Work Phone: [phone] ALP enzyme act/vol (Bld) 141 U/L High [facility] Work Phone: [phone] ALT enzyme act/vol 36 U/L [facility] Work Phone: [phone] Anion gap 5 mmol/L Invalid Interpretation Code [facility] Work Phone: [phone] Anion gap molar conc 5 mmol/L [facility] Work Phone: [phone] AST enzyme act/vol 23 U/L [facility] Work Phone: [phone] Bilirubin mass conc 0.50 mg/dL [facility] Work Phone: [phone] Bilirubin.direct mass conc 0.11 mg/dL [facility] Work Phone: [phone] Calcium mass conc 8.9 mg/dL Invalid Interpretation Code [facility] Work Phone: [phone] Chloride molar conc 109 mmol/L High [facility] Work Phone: [phone] Cholesterol in HDL mass conc 39 mg/dL Low [facility] Work Phone: [phone] Cholesterol in LDL mass conc 51 mg/dL [facility] Work Phone: [phone] Cholesterol mass conc 111 mg/dL [facility] Work Phone: [phone] CO2 29.0 mmol/L Invalid Interpretation Code [facility] Work Phone: [phone] CO2 ppres (BldV) 29.0 mmol/L [facility] Work Phone: [phone] Creatinine mass conc 0.77 mg/dL Invalid Interpretation Code [facility] Work Phone: [phone] Globulin 4.0 g/dL High [facility] Work Phone: [phone] Globulin mass conc (S) 4.0 g/dL High [facility] Work Phone: [phone] Glucose 99 mg/dL Invalid Interpretation Code [facility] Work Phone: [phone] Glucose mass conc 99 mg/dL [facility] Work Phone: [phone] Lipoprotein.pre-beta mass conc 21 mg/dL [facility] Work Phone: [phone] Potassium molar conc 3.9 mmol/L Invalid Interpretation Code [facility] Work Phone: [phone] Protein mass conc 7.9 g/dL [facility] Work Phone: [phone] Sodium molar conc 143 mmol/L Invalid Interpretation Code [facility] Work Phone: [phone] Triglyceride mass conc 105 mg/dL [facility] Work Phone: [phone] Urea nitrogen mass conc 16 mg/dL Invalid Interpretation Code [facility] Work Phone: [phone] Urea nitrogen/Creatinine mass ratio 20.9 mg/mg High [facility] Work Phone: [phone] Lab Report: Basic Metabolic Profile (BMP)on 03-13-2017 eGFR (non-black) 110 mL/min/{1.73_m2} Invalid Interpretation Code >60 [facility] Work Phone: [phone] eGFR (non-black) 134 mL/min/{1.73_m2} Invalid Interpretation Code >60 [facility] Work Phone: [phone] EST GFR - AA 134 mL/min >60 [facility] Work Phone: [phone] Lab Report: Liver Profileon 03-13-2017 Globulin 4.0 g/dL High 2.3-3.5 [facility] Work Phone: [phone] Globulin mass conc (S) 4.0 g/dL High 2.3-3.5 [facility] Work Phone: [phone] External Other: Preferred Me thod of Contacton 02-22-2017 methcontact secmsg [facility] Work Phone: [phone] Patient's prefered method of contact secmsg Invalid Interpretation Code [facility] Work Phone: [phone] Office Visiton 02-22-2017 Dietary management education, guidance, and counseling (procedure) yes Invalid Interpretation Code [facility] Work Phone: [phone] Documentation of current medications (procedure) Done Invalid Interpretation Code [facility] Work Phone: [phone] Fall risk assessment No Invalid Interpretation Code [facility] Work Phone: [phone] Protein mass conc Done [facility] Work Phone: [phone] Tobacco smoking status OKIS Tobacco smoking status NHIS Invalid Interpretation Code [facility] Work Phone: [phone] Tobacco smoking status OKIS Current every day smoker [facility] Work Phone: [phone] Tobacco use [facility] Current every day smoker Invalid Interpretation Code [facility] Work Phone: [phone] Replaced Document: [employer] E CG Observationson 02-22-2017 EKG QRS axis 33 deg [facility] Work Phone: [phone] electrocardiogram interpretation Sinus Bradycardia - Nonspecific T-abnormality. ABNORMAL Invalid Interpretation Code [facility] Work Phone: [phone] GE use only - for LinkLogic import when terms are not otherwise specified 410 ms Invalid Interpretation Code [facility] Work Phone: [phone] Interpretation Sinus Bradycardia - Nonspecific T-abnormality. ABNORMAL [facility] Work Phone: [phone] P Greenback 53 deg [facility] Work Phone: [phone] P wave axis, electrocardiogram 53 deg Invalid Interpretation Code [facility] Work Phone: [phone] CO Interval 134 ms [facility] Work Phone: [phone] CO interval, electrocardiogram 134 ms Invalid Interpretation Code [facility] Work Phone: [phone] Pulse (Heart Rate) 55 /min Invalid Interpretation Code [facility] Work Phone: [phone] QRS axis, electrocardiogram 33 deg Invalid Interpretation Code [facility] Work Phone: [phone] QRS Duration 96 ms [facility] Work Phone: [phone] QRS duration, electrocardiogram 96 ms Invalid Interpretation Code [facility] Work Phone: [phone] QT Interval new path ms [facility] Work Phone: [phone] QT interval, electrocardiogram new path ms Invalid Interpretation Code [facility] Work Phone: [phone] QTc Guidry 410 ms [facility] Work Phone: [phone] T Greenback 90 deg [facility] Work Phone: [phone] T wave axis, electrocardiogram 90 deg Invalid Interpretation Code [facility] Work Phone: [phone] Clinical Lists Update: Prelo recruiting specialist 02-20-2017 Left ventricular Ejection fraction 62 % Invalid Interpretation Code [facility] Work Phone: [phone] Tobacco smoking status NHIS Former smoker [facility] Work Phone: [phone] Tobacco use [facility] Former smoker Invalid Interpretation Code [facility] Work Phone: [phone] Vital Signs Date Time Vital Sign Value Performing Clinician Faci lity 01-27-2022 12:06-0400 Body temperature 97.7 [degF] Livia Campa DO Work Phone: [facility] 01-27-2022 12:06-0400 Diastolic blood pressure 68 mm[Hg] Livia Campa DO Work Phone: [facility] 01-27-2022 12:06-0400 Heart rate 61 /min Livia S[employer]Call DO Work Phone: [facility] 01-27-2022 12:06-0400 Respiratory rate 18 /min Livia [employer] Work Phone: [facility] 01-27-2022 12:06-0400 SaO2% (BldA) [Mass fraction] 91 % Livia Campa DO Work Phone: [facility] 01-27-2022 12:06-0400 Systolic blood pressure 113 mm[Hg] Livia Campa DO Work Phone: [facility] 02-22-2017 13:54-0400 Heart rate 55 /min Tiaeduardo Alicia [facility] Work Phone: 02-22-2017 13:42-0400 BMI (Body Mass Index) 26.91 kg/m2 Nicholas Sparks MD [facility] Work Phone: 02-22-2017 13:42-0400 BP Diastolic 60 mm[Hg] Nicholas Sparks MD [facility] Work Phone: 02-22-2017 13:42-0400 BP Systolic 108 mm[Hg] Nicholas Sparks MD [facility] Work Phone: 02-22-2017 13:42-0400 Height 172.72 cm Nicholas Sparks MD [facility] Work Phone: 02-22-2017 13:42-0400 Pulse (Heart Rate) 56 /min [facility] Work Phone: 02-22-2017 13:42-0400 Respiratory Rate 16 /min Nicholas Sparks MD [facility] Work Phone: 02-22-2017 13:42-0400 Weight 80.29 kg Nicholas Sparks MD [facility] Work Phone: Encounters Encounter Date Encounter Type Care Provider Facility Start: 01-25-2022 End: 01-27-2022 Evaluation and management of inpatient Livia Campa DO Work Phone: [facility] Comment on above: Lung nodule (Primary Dx) Start: 04-24-2012 End: 04-24-2012 Telephone encounter Katarina Evangelista Work Phone: Gastro/Endoscopy Procedures Date Procedure Procedure Detail Performing Clinician Start: 01-27-2022 Radiologic exam chest single view Joaquin Altman MD Work Phone: Start: 01-27-2022 Basic metabolic panel calcium total Joaquin Altman MD Work Phone: Start: 01-26-2022 Radiologic exam chest single view Joaquin Altman MD Work Phone: Start: 01-26-2022 Basic metabolic panel calcium total Joaquin Altman MD Work Phone: Start: 01-25-2022 OPERATIVE REPORT Physician Generic Start: 01-25-2022 Radiologic exam chest single view Joaquin Altman MD Work Phone: Start: 01-25-2022 End: 01-25-2022 BLOOD GAS, ARTERIAL Livia Campa DO Work Phone: Start: 01-25-2022 Antibody screen Livia Campa DO Work Phone: Start: 01-25-2022 Ecg routine ecg w/least 12 lds w/i&r Mike Aponte MD Work Phone: Start: 01-25-2022 BASIC METABOLIC PANEL W/ REFLEX TO MG FOR LOW K Ke Lucianoer [employer] EXAMINER - [employer] Work Phone: Start: 01-25-2022 Blood count complete auto&auto difrntl wbc Ke Lucianoer GAS EXAMINER - [employer]AB[employer] TE[employer] Work Phone: Start: 01-25-2022 Blood typing serologic abo Ke Lucianoshabana WALTONN - [employer] TE[employer]ER Work Phone: Start: 09-13-2017 End: 09-27-2017 Lipid [...] Activity Detail Author Start: 04-26-2022 Screening for malign ant neoplasm of colon [facility] Start: 04-13-2022 Influenza vaccination Flu vacc ine (Season Ended) [facility] Start: 02-07-2022 End: 02-07-2022 Evaluation and management of inpatient 02/07/2022 Office Visit Cardiothoracic Surgery Livia Campa DO [address] [place] [address] [place], [place] [id number] [facility] Start: 04-13-2021 Influenza vaccination INFLUENZA (Sea son Ended) [facility] Start: 09-13-2017 End: 03-21-2017 *Hepatic Function Panel *Hepatic Function Panel [facility] Work Phone: Start: 09-13-2017 End: 09-27-2017 Lipid panel [AGGREGATE] *Lipid Profile CC PCP [facility] Work Phone: Start: 09-05-2017 End: 09-05-2017 Appointment Appointment [facility] Work Phone: Start: 02-22-2017 End: 02-22-2017 Appointment Appointment [facility] Work Phone: Start: 02-22-2017 End: 03-13-2017 *BMP *BMP [facility] Work Phone: Start: 02-22-2017 End: 03-13-2017 *Hepatic Function Panel *Hepatic Function Panel [employer] Work Phone: Start: 02-22-2017 End: 02-22-2017 Echocardiography Echocardiogram (complete) [facility] Work Phone: Start: 02-22-2017 End: 02-22-2017 Electrocardiogram, complete EKG (In office) [facility] Work Phone: Start: 02-22-2017 End: 02-22-2017 Follow Up Appt 6 months Follow Up Appt 6 months [employer] Work Phone: Start: 02-22-2017 End: 03-13-2017 Lipid panel [AGGREGATE] *Lipid Profile CC PCP [facility] Work Phone: Start: 02-22-2017 End: 02-22-2017 PFM PFM [facility] Work Phone: Start: 12-13-2016 LIPID SCREEN LIPID SCREEN [facility] Start: 11-29-2016 Hemoglobin A1c measurement A1C test (Diabetic or Prediabetic) [facility] Start: 11-29-2016 Lipid panel Lipids [facility] Start: 01-21-2015 PROSTATE CANCER SCRE ENING DISCUSSION PROSTATE CANCER SCREENING DISCUSSION [facility] Start: 12-13-2014 DIABETES SCREEN DIABETES SCREEN [facility] Start: 12-21-2007 Screening for malign ant neoplasm of colon [facility] Start: 12-21-2007 Shingles vaccine (1 of 2) Gunderson gles vaccine (1 of 2) [facility] Start: 12-21-2007 SHINGRIX VACCINE (1 of 2) GUNDERSON GRIX VACCINE (1 of 2) [facility] Start: 08-14-2004 DTaP/Tdap/Td vaccine (1 - Tdap) DTaP/Tdap/Td vaccine (1 - Tdap) [facility] Start: 2002 Screening for malign ant neoplasm of colon [facility] Start: 1997 Prostate specific an tigen measurement Prostate Specific Antigen (PSA) Screening or Monitoring [facility] Start: 1976 Urine microalbumin profile DTAP,TDAP ,TD (1 - Tdap) [facility] Start: 12-21-1975 HEPATITIS C SCREENING HEPATITIS C [facility] Start: 12-21-1975 Hepatitis C [place] [facility] Start: 12-21-1975 HIV SCREENING HIV SCREENING [facility] Start: 1972 HIV screening HIV screen [facility] Start: 1969 Adult depression scr eening assessment DEPRESSION SCREENING [facility] Start: 1969 Depression Screen Depression Screen [facility] Basic metabolic 2000 panel - Serum or Plasma Basic Metabolic Panel Lab Routine Daily until discontinued starting 01/26/2022, 2 completed [employer] Work Phone: Comment on above: Daily until disconti nued starting 01/26/2022, 2 completed CBC W Auto Different ial panel - Blood CBC with Auto Differential Lab Routine Daily until discontinued starting 01/26/2022, 2 completed [employer] Work Phone: Comment on above: Daily until disconti nued starting 01/26/2022, 2 completed Oxygen therapy [[facility] Data Set] Initiate Oxygen Therapy Protocol Respiratory Care Routine As Needed until discontinued starting 01/25/2022 [facility] Work Phone: Comment on above: As Needed until disc ontinued starting 01/25/2022 Patient Education HEART%20HEALTHY%20DIET [facility] Work Phone: Spirometry panel Incentive geoff metry Respiratory Care Routine Every 2hr while awake until discontinued starting 01/25/2022 [facility] Work Phone: Comment on above: Every 2hr while awak e until discontinued starting 01/25/2022 End: 01-25-2022 Surgical Pathology [facility] Work Phone: Comment on above: Once for 1 Occurrenc es starting 01/25/2022 until 01/25/2022 XR CHEST PORTABLE XR CHEST [place] [facility] Imaging Routine Daily until discontinued starting 01/26/2022, 2 completed [employer] Work Phone: Comment on above: Daily until disconti nued starting 01/26/2022, 2 completed Immunizations Immunization Date Immunization Notes Care Provider Amy yao 08-13-2004 tetanus and diphther ia toxoids, not adsorbed, for adult use Katarina Evangelista Work Phone: [facility] Payers Date Payer Category Payer Unknown [employer] [address] X HMO KARLY [id number] 2022-Present [address] [place] [address] [id number] 2011 Unknown MMO MMO [employer] [id number] 2011-Present PPO [id number] Social History Date Type Detail Facility Start: 01-22-2012 Tobacco smoking stat [facility] Current every day smoker [facility] Start: 08-13-1975 End: 12-05-2021 History of tobacco use Cigarette Smoker [facility] Start: 01-22-2012 Cigarettes smoked current (pack per day) - Reported [facility] Start: 01-22-2012 End: 01-25-2022 Alcohol intake Current non-drinker of alcohol (finding) [facility] Start: 1955 Sex Assigned At Not on file [facility] Start: 04-05-2016 Tobacco smoking stat [facility] Ex-smoker [facility] Start: 08-13-1975 End: 12-05-2021 History of tobacco use Current smoker [facility] Work Phone: Start: 04-05-2016 Tobacco use and exposure Smokeless tobacco non-user [facility] Work Phone: Start: 04-05-2016 Tobacco Comment quit 1 week ago [facility] Work Phone: Start: 01-15-2022 End: 01-25-2022 Exposure to SARS-CoV-2 (event) Not sure [facility] Work Phone: History of Present illness Narrative 01-27-2022 Joaquin Altman MD - 01/27/2022 4:38 PM Mayela Bustos DTR - 01/27/2022 11:45 AM Eliza Altman MD - 01/26/2022 6:30 AM EDT Note Date & Type Note Facility 01-27-2022 History of Present illness Narrative Chest tube removed. Patient tolerated well. Plan to d/c home. Joaquin Altman MD General Surgery, PGY-4 01/27/2022 4:38 PM Nutrition rescreen completed. Chart reviewed. Patient to be monitored and followed by the diet meter technician. Images from the original note were not included. Department of Surgery - Progress Note - CTS PATIENT NAME: Katarina Melgoza ADMIT DATE: 01/25/2022 TODAY'S DATE: 01/26/2022 CURRENT ROOM: [address] [place] [address] PAST 24 HOUR EVENTS / SUBJECTIVE NAEO. [...] Date 01/26/22 0000 - 01/26/22 2359 Shift [id number] 1110-6706 3421-7193 24 Hour Total INTAKE Shift Total OUTPUT Urine 500 500 Chest Tube 100 100 Shift Total 600 600 Weight (kg) I/O last 3 completed shifts: In: 1500 [I.V.:1500] Out: 370 [Urine:220; Blood:50; Chest Tube:100] I/O this shift: In: - Out: 600 [Urine:500; Chest Tube:100] Data Recent Labs 01/25/22 0940 01/26/22 010 WBC 8.1 14.1* HGB 15.4 14.2 HCT 44.0 41.0 PLT 241 228 Recent Labs 01/25/22 0940 01/26/22 010 NA 137 134* K 4.1 4.6 CL [...] if lung expanded then potential d/c home Joaquin Altman MD General Surgery, PGY-4 01/26/2022 6:30 AM Associated attestation - Livia Campa DO - 01/27/2022 8:46 AM EDT ATTESTATION The patient was seen and examined. I have reviewed the patients presentation, histories, imaging and serology studies. I agree with the above assessment and plan. My date of service is 01/26/2022. Doing well postop. Has not been OOB/ambulating yet. Ready to do so. I (Livia Campa) personally supervised the resident in the evaluation [...] review was performed. Electronically signed by Livia Campa DO. documented in this encounter [facility] Work Phone: Hospital Discharge instructions 01-26-2022 Instructions Note Date & Type Note Facility 01-26-2022 Hospital Discharg e Joaquin Christianson MD - 01/26/2022 Images from the [...] pain. -Abdominal distention. documented in this encounter [employer] Work Phone: Discharge summary note 01-26-2022 Note [...] List Diagnosis ? Coronary artery disease involving s[place] coronary artery without angina pectoris ? S/P [...] Your Medications These medications were sent to [facility] [address] - [phone] - [phone] [place] [id number] ? oxyCODONE 5 MG immediate release tablet [...] AGENCY NAME: n/a Follow up with Tahira Cutler [address] [facility] [address] Livia Campa DO [address] [place] [address] [address] Count includes the [facility] [address] On 02/07/2022 10:30am - f/u pathology and incision check/stitch removal SIGNED: Joaquin Altman MD 01/27/2022, 4:47 PM [facility] Evaluation note Note Date & Type Note Facility Evaluation note Diagnosis Lung nodule- Primary Solitary pulmonary nodule documented in this encounter [employer] Work Phone: Advance Directives No Advanced Directives Records FoundDocuments on File Type Date Recorded 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 Ordered Prescriptions (unrec ognized section and content) Prescription Sig Dispensed Refills Start Date End Da te polyethylene glycol (GLYCOLAX) 17 GM/SCOOP powder Take 17 g by mouth daily 510 g 0 01/26/2022 02/25/2022 oxyCODONE (ROXICODONE) 5 MG immediate release tabletIndications:Lung nodule Take 1 tablet by mouth every 6 hours as needed for Pain for up to 7 days. Intended supply: 7 days. Take lowest dose possible to manage pain 28 tablet 0 01/26/2022 02/02/2022 Scheduled Active and Recently Administ ered Medications (unrecognized section and content) Medication Order 01/25/2022 01/26/2022 01/27/2022 acetaminophen (TYLENOL) tablet 1,000 mg (COMPLETED) 1,000 mg, Oral, ONCE, 1 dose, On Sun01/25/22 at 0945, Maximum dose of acetaminophen is 4000 mg from all sources in 24 hours. Do not administer if patient has taken tylenol <4 hours earlier. Do not give if contraindicated ie. patient has active liver disease or cirrhosis., Pre-op (day of surgery) 09 (Given - Provider: Yvonne Mosher RN) acetaminophen (TYLENOL) tablet 1,000 mg 1,000 mg, Oral, 3 times daily, First dose on Sun01/25/22 at 2100, Until Discontinued, Maximum dose of acetaminophen is 4000 mg from all sources in 24 hours. 2107 (Given - Provider: Micah Singleton RN) 09 (Given - Provider: Gretchen Mcneil RN)154 (Given - Provider: Gretchen Mcneil RN)212 (Given - Provider: Esperanza Mayes RN) 0925 (Given - Provider: Gretchen Mcneil RN)1517 (Given - Provider: Gretchen Mcneil RN)2100 (Due) atorvastatin (LIPITOR) tablet 80 mg 80 mg, Oral, DAILY, First dose on Sun01/25/22 at 2100, Until Discontinued 2107 (Given - Provider: Micah Singleton RN) 2125 (Given - Provider: Esperanza Mayes RN) 2100 (Due) ceFAZolin (ANCEF) 2000 mg in dextrose 4 % 100 mL IVPB (premix) (COMPLETED) 2,000 mg, IntraVENous, EVERY 8 HOURS, 3 doses, First dose on Sun01/25/22 at 2200, Last dose on Sun01/26/22 at 1400, Antimicrobial Indications: Surgical Prophylaxis 2207 (New Bag - Provider: Micah Singleton RN)223 (Stopped - Provider: Micah Singleton RN) 0635 (New Bag - Provider: Micah Singleton RN)0746 (Stopped - Provider: Gretchen Mcneil RN)1545 (New Bag - Provider: Gretchen Mcneil RN)1707 (Stopped - Provider: Gretchen Mcneil RN) celecoxib (CELEBREX) capsule 400 mg (COMPLETED) 400 mg, Oral, ONCE, 1 dose, On Sun01/25/22 at 0945, Pre-op (day of surgery) 0946 (Given - Provider: Yvonne Mosher, HERNANDEZ) enoxaparin (LOVENOX) injection 40 mg 40 mg, SubCUTAneous, DAILY, First dose on Sun01/26/22 at 1900, Until Discontinued, Indication of Use: Prophylaxis-DVT/PE 1958 (Given - Provider: Esperanza Mayes, HERNANDEZ) 925 (Given - Provider: Gretchen Mcneil RN) famotidine (PEPCID) tablet 20 mg (COMPLETED) 20 mg, Oral, ONCE, 1 dose, On Sun01/25/22 at 0945, Pre-op (day of surgery) 0946 (Given - Provider: Yvonne Mosher, HERNANDEZ) gabapentin (NEURONTIN) capsule 300 mg (COMPLETED) 300 mg, Oral, ONCE, 1 dose, On Sun01/25/22 at 0945, Pre-op (day of surgery) 0946 (Given - Provider: Yvonne Mosher, HERNANDEZ) methocarbamol (ROBAXIN) tablet 500 mg 500 mg, Oral, 3 TIMES DAILY, First dose on Sun01/25/22 at 2100, Until Discontinued 2108 (Given - Provider: Micah Singleton RN) 09 (Given - Provider: Gretchen Mcneil RN)154 (Given - Provider: Gretchen Mcneil RN)2125 (Given - Provider: Esperanza Mayes RN) 09 (Given - Provider: Gretchen Mcneil RN)151 (Given - Provider: Gretchen Mcneil RN)2099 (Due) metoprolol tartrate (LOPRESSOR) tablet 25 mg 25 mg, Oral, 2 TIMES DAILY, First dose on Sun01/25/22 at 2100, Until Discontinued 2108 (Given - Provider: Micah Singleton RN) 0904 (Given - Provider: Gretchen Mcneil RN)2125 (Given - Provider: Esperanza Mayes RN) 0925 (Given - Provider: Gretchen Mcneil RN)2100 (Due) sodium chloride flush 0.9 % injection 5-40 mL 5-40 mL, IntraVENous, EVERY 12 HOURS SCHEDULED (2 times per day), First dose on Sun01/25/22 at 2100, Until Discontinued, For Line Patency: Peripheral IV = 5 [...] Midline or Central Line = 20 mL/lumen 2111 (Given - Provider: Micah Singleton RN) 0746 (Not Given - Provider: Gretchen Mcneil RN - Reason: IV Fluid Infusing)2130 (Given - Provider: Esperanza Mayes RN) 1101 (Not Given - Provider: Gretchen Mcneil RN - Reason: Other)2100 (Due) Continuous Medication Order 01/25/2022 01/26/2022 01/27/2022 lactated ringers infusion (CANCELED) IntraVENous, at 75 mL/hr, CONTINUOUS, Starting on Sun01/25/22 at 2100 2202 (New Bag - Provider: Micah Singleton RN) PRN Medication Order 01/25/2022 01/26/2022 01/27/2022 0.9 [...] surgery) 0948 (New Bag - Provider: Yvonne Mosher RN) 1350 (Stopped - Provider: Gretchen Mcneil RN) 0.9 % sodium chloride infusion IntraVENous, at 5-250 mL/hr, PRN, if patient receiving piggyback infusions and maintenance fluids are not ordered OR KVO fluids to protect IV site / prevent frequent line interruptions/ long duration, Starting on Sun01/25/22 at 2041, For piggyback infusion, administer at same rate [...] Bronchodilator Protocol: Yes 1739 (Given - Provider: aNtty Reeder RCP) 0928 (Given - Provider: Farzad [...] Sun01/25/22 at 2041, Until Discontinued, Pain Moderate (4-6), If oral [...] PACU only 1811 (Given - Provider: Bonnie Burris, HERNANDEZ)1833 (Given - Provider: Bonnie Burris RN) ondansetron (ZOFRAN) injection 4 mg(Linked Group 2) [...] 4 HOURS PRN, Starting on Sun01/25/22 at 204, Until Discontinued, Pain Severe (7-10) 0635 (Given - Provider: Micah Singleton RN)1050 (Given - Provider: Gretchen Mcneil RN)1546 (Given - Provider: Gretchen Mcneil RN)2127 (Given - Provider: Esperanza Mayes RN) 0928 (See Alternative - Provider: Gretchen Mcneil, HERNANDEZ)1517 (Given - Provider: Gretchen Mcneil, HERNANDEZ) oxyCODONE (ROXICODONE) immediate release tablet 5 mg(Linked Group 3) 5 mg, Oral, EVERY 4 HOURS PRN, Starting on Sun01/25/22 at 2042, Until Discontinued, Pain Moderate (4-6) 0635 (See Alternative - Provider: Brandis Areli, RN)1050 (See Alternative - Provider: Gretchen Mcneil [...] Care Teams (unrecognized sec tion and content) Drilling Fluids Specialist Relationship Specialty Start Date End Date Tahira Cutler PCP - General 11/30/15 (unrecognized sect ion and content) No Status Records FoundNo Status Records Found INFORMATION SOURCE (unrecogn ized section and content) DATE CREATED AUTHOR 02/22/2022 [facility] DATE CREATED AUTHOR AUTHOR'S LNIH ATXI 07/25/2022 [facility] FOR RECORDS PERTAINING TO PATIENTS WHO ARE [...] BE BASED ON THE PRIMARY CLINICAL RECORDS. [employer] [facility]. provides no warranty or guarantee of the accuracy or completeness of information in this document.
== END | disposition home or self-care (01) ==
LOC: CT 08:15
PROVIDERS: PCP Internal Medicine; Referring Provider Internal Medicine Hematology & Oncology; Visit Provider Internal Medicine Hematology & Oncology
DX: C34.31 Malignant neoplasm of lower lobe, right bronchus or lung (principal)
CPT/HCPCS: 71260; 74160; Q9967

== ENCOUNTER 2024-06-09 09:49 | Outpatient (RCR) | payer MEDICARE, OTHER, SELFPAY ==
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
--- NOTE | 2024-09-18 14:39 | HP.PT.NRP ---
Patient Information Patient Information: KATARINA MELGOZA was seen in my office for initial evaluation on 06/09/24. The following Plan of Care was established for this patient: POC Established Initial Frequency: 1x/Week Initial Duration: 1 Week Anticipated Interventions Patient/Client Instruction: Educate patient on: Condition, Plan of Care and Risk Factors For the Purpose of:: To improve self management Therapeutic Exercise to Include: Postural training For the Purpose of:: To improve self management Last Seen Last Seen: This patient was last seen in our office 06/09/24. Pertinent comments regarding their Physical therapy will appear below: It has been my pleasure to see this patient for a total of 1 visit. This patient has not returned to Physical Therapy for more visits and is appropriate to return to MD for further follow-up as needed. At this point I will be discontinuing this patient from physical therapy. I would be happy to see this patient again in the future if found appropriate by the physician. Thank you! Mayra Her, PT, Cert MDT Balance/Gait/Functional tests Balance/Special Test Scores Oswestry Low Back Score: 4
== END 2024-06-09 19:00 | disposition home or self-care (01) ==
LOC: PT 09:49
PROVIDERS: PCP Internal Medicine; Visit Provider Internal Medicine
DX: M54.50 Low back pain, unspecified (principal)
CPT/HCPCS: 97162; 97530

== ENCOUNTER → 2024-11-04 | Outpatient (CLI) | payer MEDICARE, OTHER, SELFPAY ==
[2024-11-04 11:44] LABS: AST(SGOT) 24 U/L (<=37); Alanine Aminotransfer ALT/SGPT 19 U/L (<=46); Alkaline Phosphatase 91 U/L (40-129); Bilirubin, Direct 0.21 mg/dL (0.00-0.30); Globulin 3.8 g/dL (2.2-4.2); Protein, Total 7.8 g/dL (5.9-8.4); Total Bilirubin 0.59 mg/dL (0.00-1.30)
[2024-11-04 11:54] LABS: Cholesterol 134 mg/dL (<=200); Triglycerides 122 mg/dL; Very Low Density Lipoprotein 24 mg/dL (5-40); cholesterol:hdl ratio screen 25.52
[2024-11-04 12:14] LABS: High Density Lipoprotein 40 mg/dL; Low Density Lipoprotein Calc. 69 mg/dL
== END | disposition home or self-care (01) ==
LOC: LAB 08:24
PROVIDERS: PCP Internal Medicine; Referring Provider Internal Medicine Cardiovascular Disease; Visit Provider Internal Medicine Cardiovascular Disease
DX: E78.5 Hyperlipidemia, unspecified (principal)
CPT/HCPCS: 36415; 80061; 80076

== ENCOUNTER → 2024-11-27 | Outpatient (CLI) | payer MEDICARE, OTHER, SELFPAY ==
--- NOTE | 2024-11-27 08:21 | CT_ITS ---
PROCEDURE: CT CHEST AND ABD W/ CONTRAST 11/27/2024 REASON FOR EXAM: F/U NSCLC IV CONTRAST ONLY TECHNIQUE: Chest and abdomen CT with intravenous contrast. Coronal and Sagittal reconstruction series were provided. One or more dose reduction techniques were used (e.g., Automated exposure control, adjustment of the mA and/or kV according to patient size, use of iterative reconstruction technique. PATIENT PREPARATION: Per protocol ORAL CONTRAST TYPE: None. CONTRAST: Isovue 370 VOLUME: 100mL RADIATION DOSE SUMMARY: CTDlvol: 18.5 mGy DLP: 1207.45 mGycm COMPARISON: Comparison is made with prior study dated June 04, 2024. FINDINGS: CT CHEST: Hardware: None Lymph nodes: Small stable benign-appearing mediastinal lymph nodes. Heart and Vasculature: The heart is not enlarged. Minimal coronary artery calcification. Lungs and Airways: The patient is status post right lower lobectomy. Minimal scarring at the right lung base. Pleura: Unremarkable. CT ABDOMEN: Liver: Diffuse fatty infiltration. Gallbladder: Unremarkable Spleen: Normal size. Pancreas: Normal size without evidence of mass surrounding inflammation or ductal dilation. Adrenals: Unremarkable Kidneys: Normal renal sizes. No hydronephrosis. Bowel: Sigmoid diverticular disease. Lymph nodes: Unremarkable. Vasculature: Mild diffuse atherosclerotic calcifications are noted. Stable 3 cm infrarenal abdominal aortic aneurysm with mural thrombus. Peritoneum / Retroperitoneum: Small hiatal hernia. Bones: Degenerative changes of the spine. CT/CT Chest AND Abd W/ Contrast IMPRESSION: Stable examination. No acute abnormality is seen. Reading Location: [place] [address]
[2024-11-27 08:50] LABS: CREATININE FINGERSTICK < 1.0 mg/dL (0.70-1.30); EGFR FINGERSTICK > 60.0000 mL/min (>60)
== END | disposition home or self-care (01) ==
LOC: CT 08:21
PROVIDERS: PCP Internal Medicine; Referring Provider Internal Medicine Hematology & Oncology; Visit Provider Internal Medicine Hematology & Oncology
DX: Z01.812 Encounter for preprocedural laboratory examination (principal); C34.90 Malignant neoplasm of unspecified part of unspecified bronchus or lung
CPT/HCPCS: 71260; 74160; Q9967

== ENCOUNTER → 2025-05-27 | Outpatient (CLI) | payer MEDICARE, OTHER, SELFPAY ==
--- NOTE | 2025-05-27 08:12 | CT_ITS ---
PROCEDURE: CT CHEST AND ABD W/ CONTRAST 05/27/2025 REASON FOR EXAM: [facility] TECHNIQUE: Chest and abdomen CT with IV contrast. Coronal and Sagittal reconstructions were provided. One or more dose reduction techniques were used (e.g., Automated exposure control, adjustment of the mA and/or kV according to patient size, use of iterative reconstruction technique. CONTRAST: Isovue-300 VOLUME: 99mL RADIATION DOSE SUMMARY: DLP: 1237.48 mGycm COMPARISON: Body CTs dated 11/27/2024, 06/04/2024. FINDINGS: Lungs/pleura: Clear. No airspace consolidation, pleural effusion or pneumothorax. Mild centrilobular emphysema. No suspicious focal nodules. Status post right lower lobectomy/segmentectomy with minimal scattered linear scarring in the right lung base. Patent central airways. Mediastinum/nodes: No suspicious mediastinal or hilar lymph node enlargement. Unchanged nonspecific subcentimeter mediastinal lymph nodes. No axillary adenopathy. Heart: Normal size. No pericardial effusion. Mild coronary artery calcification. Aorta: Stable infrarenal abdominal aortic saccular aneurysm measuring up to 3.2 cm diameter, with eccentric noncalcified mural plaque/thrombus. No dissection. Mild atherosclerotic disease. Liver: No focal lesion. Diffuse hepatic steatosis. Gallbladder: Unremarkable. No biliary ductal dilatation. Spleen: Normal in size. No focal lesion. Pancreas: Unremarkable. Adrenals: Unremarkable. No nodules. Kidneys: Unremarkable. No mass or hydronephrosis. Bowel: Visualized bowel segments demonstrate no evidence for obstruction or active inflammatory process. Normal appendix. Mild distal colonic diverticulosis. Lymph nodes: No enlarged intra-abdominal lymph nodes. Peritoneum / Retroperitoneum: No ascites or free air. Bones: Mild degenerative changes of the spine. No suspicious osseous lesion. CT/CT Chest AND Abd W/ Contrast IMPRESSION: Stable exam. No evidence for recurrence/progression of malignancy. No acute f indings. Reading Location: [id number]
== END | disposition home or self-care (01) ==
LOC: CT 08:12
PROVIDERS: PCP Internal Medicine; Referring Provider Nurse Practitioner Family; Visit Provider Nurse Practitioner Family
DX: C34.90 Malignant neoplasm of unspecified part of unspecified bronchus or lung (principal)
CPT/HCPCS: 71260; 74160; Q9967

== ENCOUNTER → 2025-07-15 | Outpatient (CLI) | payer MEDICARE, OTHER, SELFPAY ==
[2025-07-15 13:36] LABS: AST(SGOT) 34 U/L (<=37); Alanine Aminotransfer ALT/SGPT 38 U/L (<=46); Albumin, Serum 4.3 g/dL (3.4-4.8); Alkaline Phosphatase 97 U/L (40-129); Anion Gap 10 (5-15); BUN 17 mg/dL (4-19); BUN/Creat Ratio 16.2 RATIO (10-20); Calcium,Total 9.7 mg/dL (7.6-11.0); Carbon Dioxide 27.5 mmol/L (21.0-32.0); Chloride 103 mmol/L (98-108); Cholesterol 148 mg/dL (<=200); Globulin 4.0 g/dL (2.2-4.2); Glucose 125 mg/dL (70-99); Low Density Lipoprotein Calc. 86 mg/dL; Magnesium 2.1 mg/dL (1.5-2.2); PSA,Total - Annual Screen 1.53 ng/mL (0.02-4.00); Potassium 4.3 mmol/L (3.3-5.1); Triglycerides 121 mg/dL; Very Low Density Lipoprotein 24 mg/dL (5-40); Vitamin B12 388 pg/mL (180-914); Vitamin D,25 Hydroxy 22.8 ng/mL (30-100); cholesterol:hdl ratio screen 3.69
== END | disposition home or self-care (01) ==
LOC: LAB 11:10
PROVIDERS: PCP Internal Medicine; Referring Provider Internal Medicine; Visit Provider Internal Medicine
DX: I11.0 Hypertensive heart disease with heart failure (principal); C34.90 Malignant neoplasm of unspecified part of unspecified bronchus or lung; I50.22 Chronic systolic (congestive) heart failure; E11.9 Type 2 diabetes mellitus without complications; Z13.220 Encounter for screening for lipoid disorders; E78.5 Hyperlipidemia, unspecified; Z12.5 Encounter for screening for malignant neoplasm of prostate; E55.9 Vitamin D deficiency, unspecified
CPT/HCPCS: 36415; 80053; 80061; 82306; 82607; 83036; 83735; 84153; 84443; G0103

== ENCOUNTER 2025-08-12 07:08 | Day surgery (SDC) | payer MEDICARE, OTHER, SELFPAY ==
--- NOTE | 2025-08-10 13:58 | PAT.ANESEVAL ---
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 When Was Last Pacemaker Check QUESTION #4 FULL TEXT: You/Your Family Experience fever (hyperthermia) with Anesthesia Last Oral Intake Last Oral intake: Last Oral Intake NPO since Meds taken in AM with sips of water? Meds patient instructed to take am of surgery PONV PONV - assembler carbon brushes: PONV - assembler carbon brushes Female No 08/10/25 09:53 HX of Motion Sickness No 08/10/25 09:53 HX of N/V After Surgery No 08/10/25 09:53 Non-Smoker Yes 08/10/25 09:53 Duration of Surgery greater No 08/10/25 09:53 than 60 minutes Number of Risk Factors 1 08/10/25 09:53 PONV Score Low Risk 08/10/25 09:53 Height & Weight Height & Weight: Anesthesia: Height & Weight Height 5 ft 7 in 07/15/25 10:18 Respiratory Assessment Respiratory Assessment - assembler carbon brushes: Respiratory Tract Infection Hx - assembler carbon brushes Hx Respiratory Tract Infection No 08/10/25 09:53 STOP Sleep Apnea STOP Sleep Apnea - assembler carbon brushes: STOP Sleep Apnea - assembler carbon brushes Hx Hypertension Yes 08/10/25 09:53 Hx Sleep Apnea No 08/10/25 09:53 CPAP BIPAP Do you snore loudly (louder No 08/10/25 09:53 than talking or can be heard Do you often feel tired/ No 08/10/25 09:53 fatigued/ sleepy during daytime? Has anyone observed you stop No 08/10/25 09:53 breathing during sleep? STOP Results Negative 08/10/25 09:53 QUESTION #5 FULL TEXT : Do you snore loudly (louder than talking or can be heard through closed doors)? 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 Specify any problems Hx of Preganancy in last 3 N/A 08/10/25 09:53 Months Nurse Filling Out Transfusion [facility] 08/10/25 09:53 & Questions: Date: 08/10/25 08/10/25 09:53 Time: 10:00 08/10/25 09:53 Patient unable to answer at this time (ie. confused, unrespo /Reproduction History /Reproductive History - assembler carbon brushes: /Reproductive Hx- assembler carbon brushes Hx Now Gestational Age (in weeks): EDC: Hx Hx Para Hx Section SAB No 08/10/25 09:53 Does the father of the baby or his family experience fever w Father of the baby Malignant Hypertension history comment PFSH Medical History Diabetes Gastric reflux History of heart attack Type 2 diabetes mellitus Screening for colon cancer Heart failure (12/03/15) Low back pain Cancer (12/02/21) Hyperkalemia Diabetes mellitus, new onset Weakness Leg pain, bilateral Restless leg Anemia Diarrhea Hypokalemia Drug induced neutropenia CINV (chemotherapy-induced nausea and vomiting) Dehydration Encounter for chemotherapy management Hiccups Encounter for education Wears dentures Bradycardia Cardiology follow-up encounter History of stress test History of echocardiogram Cancer of lower lobe of right lung Kidney stones Former smoker Preoperative cardiovascular examination Essential hypertension Old myocardial infarction Non-ST elevated myocardial infarction (non-STEMI) (~11/2015) Chronic systolic congestive heart failure Atherosclerotic heart disease of [place] coronary artery without angina pectoris Hyperlipidemia Ischemic cardiomyopathy Presence of stent in coronary artery (~11/30/15) Tobacco use Home Medications ?Medication ?Instructions ?Recorded ?Last Taken ?Type aspirin 81 mg tablet,delayed 81 mg PO DAILY@0800 heart health 12/03/15 04/09/22 History release nitroglycerin 0.4 mg sublingual 0.4 mg sublingual Q5M PRN Chest 02/25/24 Unknown Rx tablet Pain #25 tabs spironolactone 25 mg tablet 12.5 mg (1/2 x 25 mg) PO DAILY #90 05/15/24 Unknown Rx tabs atorvastatin 40 mg tablet 40 mg PO QHS #90 tabs 03/11/25 Unknown Rx omeprazole 20 mg tablet,delayed 20 mg PO DAILY #90 tabs 03/11/25 Unknown Rx release dapagliflozin propanediol 10 mg 10 mg PO QAM #90 tabs 05/25/25 08/09/25 Rx tablet (Farxiga) lisinopril 2.5 mg tablet 2.5 mg PO DAILY #90 tabs 07/24/25 Unknown Rx metoprolol tartrate 25 mg tablet 25 mg PO BID #180 tabs 07/24/25 Unknown Rx Allergy/AdvReac Type Severity Reaction Status Date / Time No Known Allergies Allergy Verified 08/10/25 09:51 Family History Grandfather CAD (coronary artery disease) Brother Cancer Surgical History (Updated 08/10/25 @ 10:00 by Rosalva Millan) History of cardiac catheterization History of colonoscopy (04/13/11) History of bronchoscopy Status post lobectomy of lung S/P right rotator cuff repair History of coronary artery stent placement Presence of coronary angioplasty implant and graft (~11/30/15) Social History Smoking Status: Former smoker quit date: 12/05/21 Tobacco: How many years used: 45 how long ago did patient quit smoking: smoked [id number] years, more when he was working alcohol intake: never substance use type: does not use caffeine: Yes Type: carbonated beverages Number of servings: 2 what type of physical activity do you participate in: none seatbelt use: always do you feel safe at home: Yes Audit: Pertinent Findings Pertinent Findings EKG Perinent findings: EKG 12/06/2023. Sinus rhythm with premature supraventricular complexes and with occasional premature ventricular complexes. Low voltage QRS. Prolonged QT. Abnormal ECG. Stress test pertinent findings: Stress test 01/04/2023. The gated ejection fraction is 41%. Myocardial perfusion stress test with large anterior lateral, inferior lateral and inferior defect. This is fixed. No ischemia is noted. Mild cardiomyopathy present. Echo (EF%) pertinent findings: Echo 11/27/2023. Normal LV size. The estimated ejection fraction is 35%. There is moderate global hypokinesis of the left ventricle. Stage I diastolic dysfunction. Moderate segmental systolic dysfunction. Consult pertinent findings: Cardiology visit 10/31/2024. 68-year-old male that presents for cardiovascular follow-up. History of CAD, previous PCI 2015, ischemic mediated cardiomyopathy, hyperlipidemia, and hypertension. Patient completed his chemotherapy for his non-small cell carcinoma in 06/01/2022. He underwent a lobectomy for the above. Stress test in 2022 was negative for ischemia but did demonstrate previous infarct. From a cardiac standpoint, patient is doing well. His exercise tolerance is stable for his age. He will continue with current aggressive medical management and risk factor modification. Recommendation Anesthesia Recommendation Anesthesia recommendation: OPTIMIZED for anesthesia (Per cardiology note 10/2024 seems like the patient is stable from cardiac standpoint.)
[2025-08-12] VITALS (12 sets, daily range): BP systolic 57–98; BP diastolic 38–73; PULSE 60–77; RESP 16; TEMP 36.1–36.3; O2SAT 93–96; BMI 27.2
--- OUTSIDE RECORDS SUMMARY | 2025-08-12 07:17 | XMS RPT_ITS | CCD ---
Author Organization [facility] Care Team Providers Care Racing Board Marker Name Role Phone Sadie RN, Tiana Campbell Unavailable Unavailable Clare TRACEY, Nicholas Child Unavailable Belia, RN, Aissatou Mantilla Unavailable Unavailsukhi e Kishan, Jazz Y Unavailable Unavailable Sadie RN, Tiana A Unavailable Unavailable Sadie RN, Tiana A Unavailable Unavailable Sadie RN, Tiana A Unavailable Unavailable Pk Vargas Unavailable Unavailable HERNANDEZ Celaya, Aissatou Mantilla Unavailable Unavailabl e Kishan, Harumi Y Unavailable Unavailable Kishan, Harumi Y Unavailable Unavailable Lenard Elizondo (Hist) Primary Care Provider Un available Dr. George Cutler Primary Care Provider Dr. William Padron Attending Provider DAYAN Tsai Referring Provider Dr. George Cutler Referring Provider Brisa VEGA, RN IV THERAPY-C Ana Attending Provider Dr. Nicholas Sparks Attending Provider Dr. Nicholas Sparks Referring Provider Dr. Nicholas Sparks Other Provider Dr. George Cutler Primary Care Provider Dr. George Cutler Primary Care Provider Dr. George Cutler Referring Provider Brisa VEGA, SILVIA-C Ana Attending Provider Dr. Aileen Gibson Attending Provider Brisa VEGA, RN IV THERAPY-C Ana Referring Provider Brisa RN IV THERAPY, RN IV THERAPY-C Ana Other Provider Dr. Britton Kauffman Attending Provider Dr. George Cutler Primary Care Provider Dr. Nicholas Sparks Attending Provider Dr. George Cutler Referring Provider Dr. George Cutler Primary Care Provider Dr. Jacob Galarza Attending Provider Dr. Geoffrey Adkins Attending Provider Dr. Geoffrey Adkins Referring Provider Dr. Geoffrey Adkins Other Provider George Cutler Primary Care Provider Dr. El Orosco Attending Provider Brian RN IV THERAPY, RN IV THERAPY-C Alvina Attending Provider Dr. El Orosco Other Provider Dr. George Cutler Primary Care Provider Dr. George Cutler Referring Provider Brisa RN IV THERAPY, RN IV THERAPY-C Ana Attending Provider Dr. Aileen Gibson Attending Provider Dr. Rashard Bernard Emergency Provider Dr. Jonatan Keller Admit Provider Dr. Jonatan Keller Attending Provider Dr. Jonatan Keller Other Provider Dr. Rashid Ovalle Other Provider Dr. Justin Mahmood Other Provider Dr. Aileen Gibson Other Provider Dr. John Staley Other Provider Dr. Ian Engel Other Provider Unavailable Dr. Neptali Sweeney Other Provider Dr. Jacob Galarza Other Provider Brian RN IV THERAPY, RN IV THERAPY-C Alvina Other Provider Dr. Lazaro Olivas Attending Provider Dr. Emi Mcgrath Other Provider Dr. Emi Mcgrath Attending Provider Dr. George Cutler Primary Care Provider Dr. George Cutler Referring Provider Brian RN IV THERAPY, RN IV THERAPY-C Alvina Attending Provider Dr. Rashard Bernard Emergency Provider Dr. Jonatan Keller Admit Provider Dr. Jonatan Keller Attending Provider Dr. Jonatan Keller Other Provider Dr. Rashid Ovalle Other Provider Dr. Justin Mahmood Other Provider Dr. Aileen Gibson Other Provider Dr. John Staley Other Provider Dr. Ian Engel Other Provider Unavailable Dr. Neptali Sweeney Other Provider Dr. Jacob Galarza Other Provider Brian RN IV THERAPY, RN IV THERAPY-C Alvina Other Provider Dr. Lazaro Olivas Attending Provider [phone] Dr. Emi Mcgrath Referring Provider Dr. Nicholas Sparks Attending Provider Dr. Meena Escobar Referring Provider Unavailabl e Dr. Aileen Gibson Attending Provider Dr. Emi Mcgrath Other Provider Dr. Emi Mcgrath Attending Provider Nneka SOTELO, ASHLEIGH Mantilla Attending Provider Dr. George Cutler Primary Care Provider Dr. Aileen Gibson Attending Provider Dr. George Cutler Referring Provider ASHLEIGH King Attending Provider ASHLEIGH King Referring Provider ASHLEIGH King Other Provider Tarun, RN IV THERAPY-C Pastora Primary Care Provider Dr. William Padron Attending Provider Dr. George Cutler Primary Care Provider Dr. Aileen Gibson Attending Provider Tarun, RN IV THERAPY-C Pastora Referring Provider Dr. Aileen Gibson Attending Provider Dr. Connie Sun Primary Care Provider Dr. Connie Sun Referring Provider Tarun, RN IV THERAPY-C Pastora Referring Provider ASHLEIGH King Attending Provider Dr. William Padron Attending Provider [phone] Natty Bowling Emergency Provider Dr. Olaf Salter Admit Provider [phone] Olaf Salter Other Provider Dr. Jonatan Keller Attending Provider Dr. Jonatan Keller Other Provider Dr. Connie Sun Attending Provider Tarun, RN IV THERAPY-C Pastora Primary Care Provider Dr. Connie Sun Attending Provider Dr. Connie Sun MD Primary Care Provider Dr. Connie Sun MD Referring Provider Dr. William Padron MD Attending Provider Nereida TRACEY, Dr. Thomas Referring Provider Arthur TRACEY, Dr. Gallagher Attending Provider Dr. Aileen Gibson MD Referring Provider Dino TRACEY, Dr. Rosales Primary Care Provider Nereida TRACEY, Dr. Thomas Attending Provider Dino TRACEY, Dr. Rosales Referring Provider Brian RN IV THERAPY-C, Alvina Attending Provider Nereida, William Attending Unavailable Nereida, William Referring Unavailable Dino, Connie Primary Care Unavailable Dino, Connie Referring Unavailable Nereida, [place] Attending Unavailable Dino, Connie Primary Care Unavailable Dino, Connie Referring Unavailable Dino, Connie Primary Care Unavailable Isckarus, Mansour Attending Unavailable Dino, Connie Primary Care Unavailable Isckarus, Mansour Attending Unavailable Isckarus, Mansour Referring Unavailable Dino, Connie Referring Unavailable Dino, Connie Primary Care Unavailable Brian, Alvina Attending Unavailable Isckarus, Mansour Attending Unavailable Dino, Connie Referring Unavailable Dino, Connie Primary Care Unavailable Dino, Connie Primary Care Unavailable Brian, Alvina Attending Unavailable Brian, Alvina Referring Unavailable Isckarus, Mansour Attending Unavailable Isckarus, Mansour Referring Unavailable Dino, Connie Primary Care Unavailable Dino TRACEY, Dr. Rosales Primary Care Physician Dr. Connie Sun MD Referring Provider Brian RN IV THERAPY-C, Alvina Attending Physician Brian RN IV THERAPY-C, Alvina Referring Provider Arthur TRACEY, Dr. Gallagher Attending Physician Dr. Aileen Gibson MD Referring Provider Medications Current Medications Medication Drug Class(es) Dates Sig (Normalized) Sig (Original) albuterol 0.83 mg/ml inhalation solution (1 source) beta2-Adrenergic Agonist Start: 01-26-2022 albuterol (PROVENTIL) nebulizer solution 2.5 mg aspirin 81 mg delayed release oral tablet (20 sources) Nonsteroidal Anti-inflammatory Drug Start: 12-03-2015 take 1 tablet by mouth once daily Aspirin 81 MG tablet Active 81 mg PO DAILY@0800 December 02, 2015 11:00pm [facility] Complies with drug therapy atorvastatin 40 mg oral tablet (20 sources) HMG-CoA Reductase Inhibitor Start: 12-27-2022 End: 03-11-2025 take 1 tablet by mouth at bedtime Start: 06-13-2022 End: 12-27-2022 Atorvastatin 80 mg tablet Discontinued 40 mg PO AT BEDTIME 90 June 13, 2022 10:24am December 27, 2022 2:34pm Start: 06-13-2022 End: 12-27-2022 take 40 mg by mouth at bedtime Atorvastatin Discontinu ed 40 MG PO AT BEDTIME 90 June 13, 2022 11:24am December 27, 2022 3:34pm Start: 12-03-2015 End: 06-13-2022 take 1 tablet by mouth at bedtime Atorvastatin 80 mg tablet Discontinued 80 mg PO AT BEDTIME 90 October 14, 2021 3:56pm June 13, 2022 9:57am On Hold: hold- unable to swallow with chemo Blood-Glucose Meter,Continuous (Freestyle [employer] [place]) misc (3 sources) Start: 2023 Blood-Glucose Meter,Continuous (Freestyle [employer] [place]) misc Active 0 .Route 2023 12:00am As directed 0.4 ml enoxaparin sodium 100 mg/ml prefilled syringe (1 source) Low Molecular Weight Heparin Start: 01-26-2022 enoxaparin (LOVENOX) injection 40 mg HYDROmorphone (DILAUDID) injection 0.25 mg (1 source) Start: 01-25-2022 HYDROmorphone (DILAUDID) injection 0.25 mg lisinopril 2.5 mg oral tablet (20 sources) Angiotensin Converting Enzyme Inhibitor Start: 05-15-2024 End: 05-25-2025 take 1 tablet by mouth once daily Start: 12-27-2022 End: 05-15-2024 take 1 tablet by mouth once daily Lisinopril 5 mg tablet Discontinued 5 mg PO DAILY 90 4 February 25, 2024 7:23am May 15, 2024 1:59pm Start: 05-02-2022 End: 12-27-2022 take 5 mg by mouth once daily Lisinopril 10 mg tablet Discontinued 5 mg PO DAILY 180 4 May 02, 2022 11:17am December 27, 2022 2:34pm Start: 05-02-2022 End: 12-27-2022 take 5 mg by mouth once daily Lisinopril Discontinued 5 MG PO DAILY 180 May 02, 2022 12:17pm December 27, 2022 3:34pm Start: 06-26-2018 End: 05-02-2022 take 1 tablet by mouth twice daily Lisinopril 10 mg tablet Discontinued 10 mg PO TWICE A DAY 180 October 14, 2021 3:56pm May 02, 2022 11:17am Start: 02-20-2017 End: 06-26-2018 take 1 tablet by mouth twice daily Lisinopril 5 mg tablet Discontinued 5 mg PO TWICE A DAY August 31, 2017 12:00am June 26, 2018 9:45am Start: 04-10-2016 take 1 tablet by dung th once daily LISINOPRIL 5 MG TABS One tablet by mouth daily LISINOPRIL [id number] Nicholas Sparks MD Start: 12-03-2015 End: 08-31-2017 take 1 tablet by mouth once daily Lisinopril 2.5 MG tablet Discontinued 2.5 mg PO DAILY December 02, 2015 11:00pm August 31, 2017 10:10am omeprazole 20 mg delayed release oral tablet (20 sources) Proton Pump Inhibitor Start: 12-06-2023 End: 03-11-2025 take 1 tablet by mouth once daily Start: 05-07-2023 End: 10-24-2023 take 1 capsule by mouth once daily Omeprazole 20 mg capsule,delayed release(DR/EC) Discontinued 20 mg PO DAILY May 06, 2023 11:00pm October 24, 2023 10:27am Start: 06-13-2022 End: 10-25-2022 take 1 capsule by mouth every other day Omeprazole 20 mg capsule,delayed release(DR/EC) Discontinued 20 mg PO .qod June 12, 2022 11:00pm October 25, 2022 12:49pm ondansetron (ZOFRAN-ODT) disintegrating tablet 4 mg (1 source) Start: 01-25-2022 ondansetron (Z OFRAN-ODT) disintegrating tablet 4 mg oxyCODONE hydrochloride 5 [...] ([place]TE ICODONE) immediate release tablet 5 mg Pen Needle, Diabetic (3 sources) Start: 12-07-2023 Pen Needle, Di abetic Active 0 .Route 100 December 07, 2023 12:00am As directed polyethylene glycol 3350 08706 mg powder for oral solution (1 source) [...] interruptions/ long duration, Starting on Sun01/25/22 at 2041 For piggyback infusion, administer at same rate [...] 01-25-2022 0.9 % sodium chloride infusi on spironolactone 25 mg oral ta blet (17 sources) Aldosterone Antagonist Start: 05-15-2024 Start: 11-28-2023 End: 05-15-2024 take 1 tablet by mouth once daily Spironolactone 25 mg tablet Discontinued 25 mg PO DAILY 90 3 May 15, 2024 1:35pm May 15, 2024 1:59pm Completed/Discontinued Medications Medication Drug Class(es) Dates Sig [...] mg from all sources in 24 hours. ascorbic acid 250 mg oral tablet (13 sources) Vitamin C Start: 06-13-2022 End: 10-25-2022 take 1 tablet by mouth once daily Ascorbic Acid (Vitamin C) 250 mg tablet Discontinued 250 mg PO DAILY June 12, 2022 11:00pm October 25, 2022 12:48pm baclofen 10 mg oral tablet (15 sources) gamma-Aminobutyr ic Acid-ergic Agonist Start: 03-30-2022 End: 05-23-2022 take 1 tablet by mouth three times daily as needed Baclofen 10 mg tablet Discontinued 10 mg PO THREE TIMES A DAY as needed for hiccups 30 0 March 29, 2022 11:00pm May 23, 2022 10:06am Hiccups Hiccough Blood-Glucose Meter,Continuous (Dexcom G7 Punchboard Stuffer) misc (4 sources) Start: 12-14-2023 End: 2023 Blood-Glucose Meter,Continuous (Dexcom G7 Punchboard Stuffer) misc Discontinued 0 .Route 1 December 14, 2023 12:00am 2023 12:44pm As directed Start: 12-14-2023 Blood-Glucose Meter,Continuous (Dexcom G7 Punchboard Stuffer) misc Active 0 .Route December 14, 2023 12:00am As directed Blood-Glucose Sensor (Dexcom G7 Sensor) device (6 sources) Start: 12-14-2023 End: 2023 Blood-Glucose Sensor (Dexcom G7 Sensor) device Discontinued 0 .Route 1 December 13, 2023 11:00pm 2023 11:44am As directed Start: 12-14-2023 End: 2023 Blood-Glucose Sensor (Dexcom G7 Sensor) device Discontinued 0 .Route 1 December 14, 2023 12:00am 2023 12:44pm As directed Start: 12-14-2023 End: 2023 Blood-Glucose Sensor (Dexcom G7 Sensor) device Discontinued 0 .Route 1 December 14, 2023 12:00am 2023 12:44pm As directed Start: 12-14-2023 Blood-Glucose Sensor (Dexcom G7 Sensor) device Active 0 .Route 1 December 14, 2023 12:00am As directed Blood-Glucose Sensor (Freest yle Hussain 3 Sensor) device (5 sources) Start: 2023 End: 12-04-2024 Blood-Glucose Sensor (Freest yle Hussain 3 Sensor) device Discontinued 0 .Route 1 December 19, 2023 11:00pm December 04, 2024 12:51pm As directed Start: 2023 End: 12-04-2024 Blood-Glucose Sensor (Freest yle Hussain 3 Sensor) device Discontinued 0 .Route 1 2023 12:00am December 04, 2024 1:51pm As directed Start: 2023 Blood-Glucose Sensor (Freestyle Hussain 3 Sensor) device Active 0 .Route 1 2023 12:00am As directed Blood-Glucose,Punchboard Stuffer,Cont (Dexcom G7 Punchboard Stuffer) misc (2 sources) Start: 12-14-2023 End: 2023 Blood-Glucose,Punchboard Stuffer,Cont (Dexcom G7 Punchboard Stuffer) misc Discontinued 0 .Route 1 December 13, 2023 11:00pm 2023 11:44am As directed Start: 12-14-2023 End: 2023 Blood-Glucose,Punchboard Stuffer,Cont (Dexcom G7 Punchboard Stuffer) misc Discontinued 0 .Route 1 December 14, 2023 12:00am 2023 12:44pm As directed Blood-Glucose,Punchboard Stuffer,Cont (Freestyle [employer] [employer] [place]) misc (2 sources) Start: 2023 End: 12-04-2024 Blood-Glucose,Punchboard Stuffer,Cont (Freestyle [employer] [place]) misc Discontinued 0 .Route 1 December 19, 2023 11:00pm December 04, 2024 12:51pm As directed Start: 2023 End: 12-04-2024 Blood-Glucose,Punchboard Stuffer,Cont (Freestyle [employer] [place]) misc Discontinued 0 .Route 1 0 2023 12:00am December 04, 2024 1:51pm As directed calcium chloride 0.0014 meq/ml / potassium chloride [...] 400 mg clopidogrel 75 mg oral tablet (20 sources) [id number] Platelet Inhibitor Start: 12-03-2015 End: 05-02-2022 take 1 tablet by mouth once daily Clopidogrel 75 mg tablet Discontinued 75 mg PO DAILY 90 October 14, 2021 3:56pm May 02, 2022 11:11am dapagliflozin 10 mg oral tablet (18 sources) Sodium-Glucose Cotransporter 2 Inhibitor Start: 11-28-2023 End: 05-25-2025 take 1 tablet by mouth once daily in the morning Dapagliflozin Propanediol (Farxiga) 10 mg tablet Discontinued 10 mg PO EVERY MORNING 30 May 13, 2024 11:06am May 15, 2024 1:36pm dexamethasone 4 mg oral tablet (15 sources) Corticosteroid Start: 03-30-2022 End: 04-20-2022 Dexamethasone 4 mg tablet Discontinued 8 mg PO .COMPLEX 6 March 29, 2022 11:00pm April 20, 2022 9:26am Chemotherapy-induced nausea and vomiting Nausea with vomiting, unspecified Adverse effect of antineoplastic and immunosuppressive drugs, initial encounter 8 mg orally Daily on days 2 3 and 4 of chemotherapy cycle only; Start: 03-30-2022 End: 04-20-2022 Dexamethasone Discontinued 8 MG PO .COMPLEX 6 March 30, 2022 12:00am April 20, 2022 10:26am 8 mg orally Daily on days 2 3 and 4 of chemotherapy cycle only; famotidine 20 mg oral tablet (1 source) Histamine-2 Receptor Antagonist Start: 01-25-2022 End: 01-25-2022 famotidine (PEPCID) tablet 20 mg ferrous gluconate 324 mg oral tablet (13 sources) Start: 06-13-2022 End: 10-25-2022 take 1 tablet by mouth once daily Ferrous Gluconate 324 mg (37.5 mg iron) tablet Discontinued 324 mg PO DAILY June 12, 2022 11:00pm October 25, 2022 12:48pm gabapentin 300 mg oral capsule (1 source) Anti-epileptic Agent Start: 01-25-2022 End: 01-25-2022 gabapentin (NEURONTIN) capsule 300 mg 1 ml hydrALAZINE hydrochloride 20 mg/ml injection (1 source) Arteriolar Vasodilator Start: 01-25-2022 10 mg, IntraVENous, EVERY 4 HOURS PRN, Starting on Sun01/25/22 at 2041, Until Discontinued, High Blood Pressure, SBP > 160. Hold if HR > 100. Second line 3 ml insulin aspart, human 100 unt/ml cartridge (7 sources) Insulin Analog Start: 12-07-2023 End: 05-15-2024 Insulin Aspart (Niacinamide) (Fiasp Penfill U-100 Insulin) 100 unit/mL (3 mL) cartridge Discontinued 6 U SC THREE TIMES A DAY 25 10December 06, 2023 11:00pm May 15, 2024 1:31pm Hold if glucose less than 130 mg/dl 3 ml insulin glargine 100 unt/ml pen injector (7 sources) Insulin Analog Start: 12-07-2023 End: 05-15-2024 Insulin Glargine (Basaglar Kwikpen U-100 Insulin) 100 unit/mL (3 mL) insulin pen Discontinued 15 U SC DAILY 25 10December 06, 2023 11:00pm May 15, 2024 1:31pm Hold if glucose less than 130 mg/dl 3 ml insulin lispro 100 unt/ml pen injector (7 sources) Insulin Analog Start: 12-07-2023 End: 12-13-2023 Insulin Lispro (Humalog Kwikpen Insulin) 100 unit/mL Insulin Pen Discontinued 0 U SC BEFORE MEALS AND AT BEDTIME Protocol: - Use for Total Daily Dose of Insulin 56-80 units- Patient who are insulin resistant or septicHIGH MEDIUM DOSING ALGORITHM Condition: 150-199 mg/dl = 2 units Condition: 200-259 mg/dl = 4 units Condition: 260-324 mg/dl = 6 units Condition: 325-374 mg/dl = 8 units Condition: 375-409 mg/dl = 10 units Condition: 410-449 mg/dl = 11 units Condition: Greater than 449 call physician 0 December 06, 2023 11:00pm December 13, 2023 12:53pm Please contact the information source for Protocol details. Start: 12-07-2023 End: 12-13-2023 Insulin Lispro (Humalog Kwik pen Insulin) 100 unit/mL Insulin Pen Discontinued 0 U SC BEFORE MEALS AND AT BEDTIME 0 December 07, 2023 12:00am December 13, 2023 1:53pm Please contact the information source for Protocol details. Start: 12-07-2023 End: 12-13-2023 Insulin Lispro (Humalog Kwik pen Insulin) 100 unit/mL Insulin Pen Discontinued 0 UNIT SC BEFORE MEALS AND AT BEDTIME 0 December 07, 2023 12:00am December 13, 2023 1:53pm labetalol hydrochloride 5 mg/ml injectable solution (1 source) beta-Adrenergic Rolanda Start: 01-25-2022 10 mg, IntraVENous, EVERY 4 HOURS PRN, Starting on Sun01/25/22 at 2041, Until Discontinued, High Blood Pressure, SBP > 160. Hold if HR < 60. First line lidocaine hydrochloride 20 mg/ml mucous membrane topical solution (14 sources) Antiarrhythmic, Amide Local Anesthetic Start: 04-12-2022 End: 04-20-2022 take 1 mL by mouth every three hours as needed for nausea Lidocaine Hcl (Lidocaine Viscous) 2 % Solution Discontinued 5 mL PO EVERY 3 HOURS NEEDED as needed for NAUSEA 100 5 0 April 11, 2022 11:00pm April 20, 2022 9:27am Start: 04-12-2022 End: 04-20-2022 take 1 mL by mouth every three hours as needed for nausea Lidocaine Hcl (Lidocaine Viscous) 2 % Solution Discontinued 5 mL PO EVERY 3 HOURS NEEDED as needed for NAUSEA 100 5 0 April 12, 2022 12:00am April 20, 2022 10:27am Start: 04-12-2022 End: 04-20-2022 take 1 mL by mouth every three hours as needed for nausea Lidocaine Hcl (Lidocaine Viscous) 2 % Solution Discontinued 5 mL PO EVERY 3 HOURS NEEDED as needed for NAUSEA 100 5 April 12, 2022 12:00am April 20, 2022 10:27am Start: 04-12-2022 End: 04-20-2022 take 1 mL by mouth every three hours as needed Lidocaine Hcl (Lidocaine Viscous) 2 % Solution Discontinued 5 ML PO EVERY 3 HOURS NEEDED 100 5 April 12, 2022 12:00am April 20, 2022 10:27am Start: 04-12-2022 End: 04-20-2022 take 1 mL by mouth every three hours as needed Lidocaine Hcl (Lidocaine Viscous) 2 % Solution Discontinued 5 ML PO EVERY 3 HOURS NEEDED 100 April 11, 2022 11:00pm April 20, 2022 9:27am Start: 04-12-2022 take 1 mL by mouth e very three hours as needed Lidocaine Hcl (Lidocaine Viscous) 2 % Solution Active 5 ML PO EVERY 3 HOURS NEEDED 100 5 April 12, 2022 12:00am lidocaine 25 mg/ml / prilocaine 25 mg/ml topical cream (16 sources) Antiarrhythmic, Amide Local Anesthetic Start: 03-06-2022 End: 12-27-2022 Lidocaine-Prilocaine 2.5-2.5 % cream Discontinued 1 NMA TOPICAL ONCE as needed for port access March 05, 2022 11:00pm December 27, 2022 2:05pm Cancer of lower lobe of right lung Malignant neoplasm of lower lobe, right bronchus or lung Start: 03-06-2022 End: 12-27-2022 Lidocaine-Prilocaine Discont inued 1 APPLIC TOPICAL ONCE March 06, 2022 12:00am December 27, 2022 3:05pm 1 ml LORazepam 2 mg/ml injection (1 source) Benzodiazepine Start: 01-25-2022 End: 01-25-2022 LORazepam (ATIVAN) injection 0.5 mg magnesium citrate 100 mg oral tablet (13 sources) Start: 06-13-2022 End: 10-25-2022 take 2 capsules by mouth once daily Magnesium Citrate 100 mg capsule Discontinued 200 mg PO DAILY June 12, 2022 11:00pm October 25, 2022 12:48pm Start: 06-13-2022 End: 10-25-2022 take 200 mg by mouth once daily Magnesium Citrate Discontinued 200 MG PO DAILY June 13, 2022 12:00am October 25, 2022 1:48pm metFORMIN hydrochloride 500 mg oral tablet (7 sources) Biguanide Start: 12-07-2023 End: 05-15-2024 take 1 tablet by mouth twice daily Metformin 500 mg tablet Discontinued 500 mg PO TWICE A DAY 60 30 0 December 06, 2023 11:00pm May 15, 2024 1:31pm Start from 12/10/2023 methocarbamol 500 mg oral tablet (1 source) Muscle Relaxant Start: 01-25-2022 take 500 mg by mouth three times daily 500 mg, Oral, 3 TIMES DAILY, First dose on Sun01/25/22 at 2100, Until Discontinued metoclopramide 10 mg oral tablet (20 sources) Dopamine-2 Receptor Antagonist Start: 05-04-2022 End: 05-23-2022 take 1 tablet by mouth every six hours as needed for nausea and vomiting Metoclopramide Hcl (Reglan) 10 mg tablet Discontinued 10 mg PO EVERY 6 HOURS as needed for nausea and vomiting 28 0 May 03, 2022 11:00pm May 23, 2022 10:06am Chemotherapy-induced nausea and vomiting Nausea with vomiting, unspecified Adverse effect of antineoplastic and immunosuppressive drugs, initial encounter Start: 04-12-2022 End: 04-20-2022 take 1 tablet by mouth every eight hours Metoclopramide Hcl 5 mg tablet Discontinued 5 mg PO Q8H 15 5 0 April 11, 2022 11:00pm April 20, 2022 9:33am metoprolol tartrate 25 mg oral tablet (20 sources) beta-Adrenergic Rolanda Start: 04-12-2022 End: 10-31-2024 take 1 tablet by mouth twice daily Metoprolol Tartrate 25 mg tablet Discontinued 25 mg PO TWICE A DAY 180 3 October 24, 2023 10:39am October 31, 2024 9:08am Start: 01-25-2022 take 25 mg by mouth twice darlene y 25 mg, Oral, 2 TIMES DAILY, First dose on Sun01/25/22 at 2100, Until Discontinued Start: 04-10-2016 End: 04-12-2022 take 1 tablet by mouth once daily Metoprolol Succinate 50 mg tablet extended release 24 hr Discontinued 50 mg PO daily 90 4 October 14, 2021 3:56pm April 12, 2022 10:08am Start: 12-03-2015 End: 08-31-2017 take 1 tablet by mouth once daily Metoprolol Succinate 25 MG tablet Discontinued 25 mg PO DAILY December 02, 2015 11:00pm August 31, 2017 10:11am metroNIDAZOLE 500 mg oral tablet (20 sources) Nitroimidazole Antimicrobial Start: 12-03-2015 End: 08-31-2017 take 1 tablet by mouth every eight hours Metronidazole 500 MG tablet Discontinued 500 mg PO EVERY 8 HOURS 42 December 02, 2015 11:00pm August 31, 2017 10:18am Multivitamin preparation (8 sources) Start: 10-25-2022 End: 12-27-2022 take 1 tablet by mouth once daily Multivitamin Discontinued 1 TABLET PO DAILY October 24, 2022 11:00pm December 27, 2022 2:05pm Start: 10-25-2022 End: 12-27-2022 take 1 tablet by mouth once daily Multivitamin Discontinued 1 TABLET PO DAILY October 25, 2022 12:00am December 27, 2022 3:05pm Multivitamin tablet (4 sources) Start: 10-25-2022 End: 12-27-2022 Multivitamin tablet Disconti nued 1 {tbl} PO DAILY October 24, 2022 11:00pm December 27, 2022 2:05pm Start: 10-25-2022 End: 12-27-2022 Multivitamin tablet Disconti nued 1 {tbl} PO DAILY October 25, 2022 12:00am December 27, 2022 3:05pm nitroglycerin 0.4 mg sublingual tablet (20 sources) Nitrate Vasodilator Start: 12-03-2015 End: 02-25-2024 Nitroglycerin 0.4 mg tablet, sublingual Discontinued 0.4 mg SL Q5M as needed for Chest Pain 04 11July 31, 2022 3:32pm February 25, 2024 7:23am script never filled ondansetron 8 mg disintegrating oral tablet (16 sources) Serotonin-3 Receptor Antagonist Start: 03-06-2022 End: 12-27-2022 take 1 tablet by mouth every eight hours as needed for nausea and vomiting Ondansetron 8 mg tablet,disintegratin g Discontinued 8 mg PO Q8H as needed for nausea and vomiting 30 2 March 05, 2022 11:00pm December 27, 2022 2:05pm Cancer of lower lobe of right lung Chemotherapy-induced nausea and vomiting Malignant neoplasm of lower lobe, right bronchus or lung Nausea with vomiting, unspecified Adverse effect of antineoplastic and immunosuppressive drugs, initial encounter potassium chloride 2.67 meq/ml oral solution (13 sources) Start: 05-09-2022 End: 06-13-2022 take 40 mEq by mouth once daily Potassium Chloride 40 mEq/15 mL liquid Discontinued 40 meq PO .COMPLEX [id number] May 08, 2022 11:00pm June 13, 2022 9:56am Hypokalemia Diarrhea Hypokalemia Diarrhea, unspecified 40 mEq orally daily x 2 days starting 05/10/22; prochlorperazine 10 mg oral tablet (16 sources) Phenothiazine Start: 03-06-2022 End: 05-04-2022 take 1 tablet by mouth every six hours as needed for nausea and vomiting Prochlorperazine Maleate 10 mg tablet Discontinued 10 mg PO EVERY 6 HOURS as needed for nausea and vomiting 30 2 March 05, 2022 11:00pm May 04, 2022 7:50am Chemotherapy-induced nausea and vomiting Cancer of lower lobe of right lung Nausea with vomiting, unspecified Adverse effect of antineoplastic and immunosuppressive drugs, initial encounter Malignant neoplasm of lower lobe, right bronchus or lung promethazine hydrochloride 25 mg rectal suppository (13 sources) Phenothiazine Start: 05-04-2022 End: 05-23-2022 Promethazine 25 mg suppository Discontinued 25 mg RC Q12H as needed for nausea and vomiting 12 May 03, 2022 11:00pm May 23, 2022 10:07am Chemotherapy-induced nausea and vomiting Nausea with vomiting, unspecified Adverse effect of antineoplastic and immunosuppressive drugs, initial encounter 72 hr scopolamine 0.0139 mg/hr transdermal system (13 sources) Anticholinergic Start: 05-04-2022 End: 06-13-2022 Scopolamine Base 1 mg over 3 days patch 3 day Discontinued 1 NMA TD Q72H 4 May 03, 2022 11:00pm June 13, 2022 9:56am Chemotherapy-induced nausea and vomiting Nausea with vomiting, unspecified Adverse effect of antineoplastic and immunosuppressive drugs, initial encounter Start: 05-04-2022 End: 06-13-2022 Scopolamine Base Discontinue d 1 PATCH TD Q72H 4 May 04, 2022 12:00am June 13, 2022 10:56am sucralfate 1000 mg oral tablet (14 sources) Aluminum Complex Start: 04-12-2022 End: 05-04-2022 take 1 tablet by mouth three times daily before mealtime Sucralfate 1 gram Tablet Discontinued 1 g PO THREE TIMES DAILY BEFORE MEALS 90 30 0 April 11, 2022 11:00pm May 04, 2022 8:12am Problems Active Problems Problem Classification Problem Date Documented Da te Episodic/Chronic Acute and unspecified renal failure (18 sources) Injury of kidney; Translations: [Acute kidney failure, unspecified] Episodic Administrative/social admission (20 sources) Patient encounter status; Translations: [Counseling, unspecified] Episodic Cancer of bronchus; lung (20 sources) Adenocarcinoma of lung; Translations: [Malignant neoplasm of unspecified part of unspecified bronchus or lung] Onset: Chronic Chronic obstructive pulmonary disease and bronchiectasis (20 sources) Mild chronic obstructive pulmonary disease; Translations: [Chronic obstructive pulmonary disease, unspecified] Chronic Congestive heart failure; nonhypertensive (20 sources) Congestive heart failure; Translations: [Chronic systolic heart failure] Onset: 0 02-20-2017 Chronic Coronary atherosclerosis and other heart disease (20 sources) Generalized ischemic myocardial dysfunction; Translations: [Coronary arteriosclerosis] Onset: 0 02-20-2017 Chronic Comment on above: PCI/PÉREZ to OM1 and m id CFX 11/30/15 @ [facility] Deficiency and other anemia (13 sources) Anemia; Translations: [Anemia, unspecified] 06-22-2022 Episodic Deficiency and other anemia (2 sources) Anemia, unspecified; Translations: [Anemia, unspecified] Episodic Diabetes mellitus without complication (14 sources) Newly diagnosed diabetes; Translations: [Type 2 diabetes mellitus without complications] 12-06-2023 Chronic Diabetes mellitus without complication (13 sources) Impaired glucose tolerance; Translations: [Impaired glucose tolerance (oral)] Onset: 2 01-22-2012 Episodic Diseases of white blood cells (20 sources) Leukocytosis; Translations: [Elevated white blood cell count, unspecified] Chronic Disorders of lipid metabolism (20 sources) Hyperlipidemia; Translations: [Hyperlipidemia, unspecified] Onset: 5 02-20-2017 Chronic Esophageal disorders (11 sources) Esophagitis; Translations: [Esophagitis] 05-07-2023 Episodic Essential hypertension (20 sources) Hypertensive disorder; Translations: [Essential hypertension] Onset: 5 02-20-2017 Chronic Comment on above: per pt, controlled o n meds Fluid and electrolyte disorders (20 sources) Dehydration; Translations: [Dehydration] Episodic Gastrointestinal hemorrhage (18 sources) Acute upper gastrointestinal hemorrhage; Translations: [Gastrointestinal hemorrhage, unspecified] Episodic Lymphadenitis (20 sources) Mediastinal lymphadenopathy; Translations: [Localized enlarged lymph nodes] Episodic Maintenance chemotherapy; radiotherapy (18 sources) Patient encounter status; Translations: [Encounter for antineoplastic chemotherapy] Chronic Malaise and fatigue (14 sources) Asthenia; Translations: [Weakness] Episodic Nausea and vomiting (20 sources) Chemotherapy-induced nausea and vomiting; Translations: [Nausea with vomiting, unspecified] Episodic Nonspecific chest pain (14 sources) Chest pain; Translations: [Chest pain, unspecified] 12-27-2022 Episodic Other aftercare (3 sources) Encounter for adjustment and management of vascular access device; Translations: [Fitting and adjustment of vascular catheter] Episodic Other circulatory disease (15 sources) Transient hypotension; Translations: [Hypotension, unspecified] 04-14-2022 Episodic Other circulatory disease (3 sources) Hypotension, unspecified; Translations: [Nonspecific low blood pressure reading] Episodic Other connective tissue disease (12 sources) Pain in lower limb; Translations: [Pain in right leg] 07-05-2022 Episodic Other connective tissue disease (1 source) Pain in right leg; Translations: [Pain in limb] Episodic Other connective tissue disease (1 source) Pain in bilateral legs; Translations: [Pain in right leg] 07-05-2022 Episodic Other gastrointestinal disorders (13 sources) Diarrhea; Translations: [Diarrhea, unspecified] 05-09-2022 Episodic Other gastrointestinal disorders (1 source) Diarrhea, unspecified; Translations: [Diarrhea] Episodic Other hereditary and degenerative nervous system conditions (13 sources) Restless legs; Translations: [Restless legs syndrome] 05-30-2022 Chronic Other hereditary and degenerative nervous system conditions (1 source) Restless legs syndrome; Translations: [Restless legs syndrome (RLS)] Chronic Other lower respiratory disease (5 sources) Nodule of lung; Translations: [Solitary pulmonary nodule] Onset: 2 Episodic Other lower respiratory disease (3 sources) Lung mass; Translations: [Other nonspecific abnormal finding of lung field] Episodic Other lower respiratory disease (5 sources) Other nonspecific abnormal finding of lung field; Translations: [Swelling, mass, or lump in chest] Episodic Other lower respiratory disease (15 sources) Hiccoughs; Translations: [Hiccough] 03-30-2022 Episodic Other lower respiratory disease (6 sources) Hiccough; Translations: [Hiccough] Episodic Residual codes; unclassified (20 sources) Tobacco use and exposure - finding; Translations: [Tobacco use] 12-08-2020 Episodic Screening or history of mental health and substance abuse (15 sources) Tobacco user; Translations: [Tobacco use] Onset: 7 02-20-2017 Chronic Spondylosis; intervertebral disc disorders; other back problems (4 sources) Low back pain; Translations: [Low back pain] 05-29-2024 Episodic Substance-related disorders (5 sources) Nicotine dependence; Translations: [Nicotine dependence, cigarettes, uncomplicated] Chronic Unclassified (19 sources) Placement of stent in coronary artery ; Translations: [Presence of other cardiac implants and grafts] Onset: 7 02-20-2017 Unclassified (1 source) Patient encounter status Unclassified (1 source) Z12.11 - Encounter for screening for malignant neoplasm of colon Past or Other Problems Problem Classification Problem Date Documented Da te Episodic/Chronic Calculus of urinary tract (1 source) Kidney stone; Translations: [Calculus of kidney] Onset: 01-21-2010 01-21-2010 Episodic Coronary atherosclerosis and other heart disease (20 sources) Stented coronary artery; Translations: [Presence of coronary angioplasty implant and graft] Onset: 11-12-2015 Episodic Comment on above: PCI/PÉREZ to OM1 and m id CFX 11/30/15 @ [facility] Other and unspecified benign neoplasm (1 source) [...] Test Name Value Interpretation Reference Range Facility Absolute lymphocyte countOrd ered By: Alvina Torres on 06-03-2025 Lymphocytes Auto (Unsp spec) [#/Vol] 2.99 10*3/uL 0.83-4.51 [facility] Absolute neutrophil countOrd ered By: Alvina Torres on 06-03-2025 Neutrophils (Bld) [#/Vol] 5.2 10*3/uL 2.0-7.7 [facility] Anion gap in Serum or Plasma Ordered By: Alvina Torres on 06-03-2025 Anion gap [Moles/Vol] 10 mmol/L 12-25 [facility] Automated lymphocyte count a s percentage of total leukocytesOrdered By: Alvina Torres on 06-03-2025 Lymphocytes/100 WBC Auto (Unsp spec) 32.5 % [facility] BUN/creatinine ratioOrdered By: Alvina Torres on 06-03-2025 Urea nitrogen/Creatinine [Mass ratio] 16.9 mg/mg 06-01 [facility] Bilirubin, totalOrdered By: Alvina Torres on 06-03-2025 Bilirubin [Mass/Vol] 0.72 mg/dL 0.00-1.30 [facility] CBC W/Diff, Automatedon 05-14 Absolute Lymph 2.99 X10 3/uL Normal 0.83-4.51 [facility] Comment on above: Performed By: #### L [id number], L100.0100 #### [facility] [address] [place], [place], [address] Absolute Neut 5.2 X10 3/uL Normal 2.0-7.7 [facility] Comment on above: Performed By: #### L [id number], L100.0100 #### [facility] [address] [place], [address] IG% 0.500 Normal 0.0-0.9 [facility] Comment on above: Result Comment: IG% - Immature Granulocytes (promyelocytes, myelocytes and metamyelocytes) > 1% indicates that a LEFT SHIFT is Present. Performed By: #### L [id number], L100.0100 #### [facility] [address] [place], [address] Lymphocytes/100 WBC (Bld) 32.5 % Normal 19-41 [facility] Comment on above: Performed By: #### L [id number], L100.0100 #### [facility] [address] [place], [address] Nucleated RBC (Bld) [#/Vol] 0 10*3/uL Normal 0-5 [facility] Comment on above: Performed By: #### L [id number], L100.0100 #### [facility] [address] [place], [address] RDW SD 49.8 fl High 35.1-43.9 [facility] Comment on above: Performed By: #### L [id number], L100.0100 #### [facility] [address] [place], [address] CBC W/Diff, AutomatedOrdered By: Alvina Torres on 06-03-2025 Basophils/100 WBC (Bld) 0.5 % Normal 0-1 [facility] Comment on above: Performed By: #### L [id number], L100.0100 #### [facility] [address] [place], [address] Eosinophils/100 WBC (Bld) 1.5 % Normal 0-5 [facility] Comment on above: Performed By: #### L [id number], L100.0100 #### [facility] [address] [place], [address] Erythrocyte distribution width (RBC) [Ratio] 13.7 % Normal 11.6-14.6 [facility] Comment on above: Performed By: #### L [id number], L100.0100 #### [facility] [address] [place], [address] Hematocrit (Bld) [Volume fraction] 50.0 % Normal 40-54 [facility] Comment on above: Performed By: #### L [id number], L100.0100 #### [facility] [address] [place], [address] Hemoglobin (Bld) [Mass/Vol] 16.4 g/dL Normal 13.0-16.5 [facility] Comment on above: Performed By: #### L [id number], L100.0100 #### [facility] [address] [place], [address] MCH (RBC) [Entitic mass] 32.0 pg Normal 27.0-32.0 [facility] Comment on above: Performed By: #### L [id number], L100.0100 #### [facility] [address] [place], [address] MCHC (RBC) [Mass/Vol] 32.8 g/dL Normal 32-36 [facility] Comment on above: Performed By: #### L [id number], L100.0100 #### [facility] [address] [place], [address] MCV (RBC) [Entitic vol] 97.7 fL High 80-94 [facility] Comment on above: Performed By: #### L [id number], L100.0100 #### [facility] [address] [place], [address] Monocytes/100 WBC (Bld) 8.8 % Normal 0-10 [facility] Comment on above: Performed By: #### L [id number], L100.0100 #### [facility] [address] [place], [address] Neutrophils/100 WBC (Bld) 56.2 % Normal 47-70 [facility] Comment on above: Performed By: #### L [id number], L100.0100 #### [facility] [address] [place], [address] Platelet mean volume (Bld) [Entitic vol] 10.8 fL Normal 6.2-12.0 [facility] Comment on above: Performed By: #### L [id number], L100.0100 #### [facility] [address] [place], [address] Platelets (Bld) [#/Vol] 226 10*3/uL Normal 150-450 [facility] Comment on above: Performed By: #### L [id number], L100.0100 #### [facility] [address] [place], [address] RBC (Bld) [#/Vol] 5.12 10*6/uL Normal 4.6-6.2 [facility] Comment on above: Performed By: #### L [id number], L100.0100 #### [facility] [address] [place], [address] WBC (Bld) [#/Vol] 9.2 10*3/uL Normal 4.4-11.0 [facility] Comment on above: Performed By: #### L 500.4050, L100.0100 #### [facility] [address] [place], [address] Carbon dioxide, total [Moles /volume] in Central venous bloodOrdered By: Alvina Torres on 06-03-2025 CO2 [Moles/Vol] 27.1 mmol/L 21.0-32.0 [facility] Chloride assayOrdered By: Jamey Torres on 06-03-2025 Chloride [Moles/Vol] 101 mmol/L 98-108 [facility] Comprehensive Metabolic Prof ilon 06-03-2025 Albumin [Mass/Vol] 4.3 g/dL Normal 3.4-4.8 [facility] Comment on above: Performed By: #### L 500.4050, L100.0100 #### [facility] [address] [place], [address] Albumin/Globulin [Mass ratio] 1.0 {ratio} Normal 0.9-2.4 [facility] Comment on above: Performed By: #### L 500.4050, L100.0100 #### [facility] [address] [place], [address] ALK PHOS 99 U/L Normal 40-129 [facility] Comment on above: Performed By: #### L 500.4050, L100.0100 #### [facility] [address] [place], [address] ALT [Catalytic activity/Vol] 35 U/L Normal <=46 [facility] Comment on above: Performed By: #### L 500.4050, L100.0100 #### [facility] [address] [place], [address] AST [Catalytic activity/Vol] 32 U/L Normal <=37 [facility] Comment on above: Performed By: #### L 500.4050, L100.0100 #### [facility] [address] [place], [address] Bilirubin [Mass/Vol] 0.72 mg/dL Normal 0.00-1.30 [facility] Comment on above: Performed By: #### L 500.4050, L100.0100 #### [facility] [address] [place], [address] BUN/CRE 16.9 RATIO Normal 10-20 [facility] Comment on above: Performed By: #### L 500.4050, L100.0100 #### [facility] [address] [place], [address] Calcium [Mass/Vol] 9.8 mg/dL Normal 7.6-11.0 [facility] Comment on above: Performed By: #### L 500.4050, L100.0100 #### [facility] [address] [place], [address] Chloride [Moles/Vol] 101 mmol/L Normal 98-108 [facility] Comment on above: Performed By: #### L 500.4050, L100.0100 #### [facility] [address] [place], [address] CO2 [Moles/Vol] 27.1 mmol/L Normal 21.0-32.0 [facility] Comment on above: Performed By: #### L 500.4050, L100.0100 #### [facility] [address] [place], [address] Creatinine [Mass/Vol] 0.98 mg/dL Normal 0.70-1.20 [facility] Comment on above: Performed By: #### L 500.4050, L100.0100 #### [facility] [address] [place], [address] ECRCL 75.01 ml/min Normal 50-250 [facility] Comment on above: Performed By: #### L 500.4050, L100.0100 #### [facility] [address] [place], [address] GAP 10 Normal 5-15 [facility] Comment on above: Performed By: #### L 500.4050, L100.0100 #### [facility] [address] [place], [address] GFR/1.73 sq M.predicted among non-blacks MDRD (S/P/Bld) [Vol rate/Area] 84 mL/min/{1.73_m2} Normal >60 [facility] Comment on above: Result Comment: mL/m in/1.73m2 CKD-EPI Creatinine Equation (2020) Performed By: #### L 500.4050, L100.0100 #### [facility] [address] [place], [address] Globulin (S) [Mass/Vol] 4.4 g/dL High 2.2-4.2 [facility] Comment on above: Performed By: #### L 500.4050, L100.0100 #### [facility] [address] [place], [address] Glucose [Mass/Vol] 90 mg/dL Normal 70-99 [facility] Comment on above: Performed By: #### L 500.4050, L100.0100 #### [facility] [address] [place], [address] Potassium [Moles/Vol] 4.2 mmol/L Normal 3.3-5.1 [facility] Comment on above: Performed By: #### L 500.4050, L100.0100 #### [facility] [address] [place], [address] Sodium [Moles/Vol] 138 mmol/L Normal 133-145 [facility] Comment on above: Performed By: #### L 500.4050, L100.0100 #### [facility] [address] [place], [address] T PROT 8.8 g/dL High 5.9-8.4 [facility] Comment on above: Performed By: #### L 500.4050, L100.0100 #### [facility] [address] [place], [place], [address] Urea nitrogen [Mass/Vol] 17 mg/dL Normal 4-19 [facility] Comment on above: Performed By: #### L 500.4050, L100.0100 #### [facility] [address] [place], [address] Erythrocyte distribution wid th standard deviationOrdered By: Alvina Torres on 06-03-2025 Erythrocyte distribution width (RBC) [Ratio] 49.8 fl High 35.1-43.9 [facility] Glomerular filtration rate ( GFR) estimation/1.73 sq m using serum, plasma, or whole bOrdered By: Alvina Torres on 06-03-2025 GFR/1.73 sq M.predicted among non-blacks MDRD (S/P/Bld) [Vol rate/Area] 84 mL/min/{1.73_m2} >60 [facility] Comment on above: mL/min/1.73m2 CKD-EP I Creatinine Equation (2020) Immature granulocytes/100 WB C Auto (Bld)Ordered By: Alvina Torres on 06-03-2025 Immature granulocytes/100 WBC (Bld) 0.500 % 0.0-0.9 [facility] Comment on above: IG% - Immature Granu locytes (promyelocytes, myelocytes and metamyelocytes) > 1% indicates that a LEFT SHIFT is Present. Laboratory - Chemistry and C hemistry - challengeOrdered By: Alvina Torres on 06-03-2025 AST [Catalytic activity/Vol] 32 U/L <38 [facility] Nucleated red blood cell per centageOrdered By: Alvina Torres on 06-03-2025 Nucleated RBC/100 WBC (Bld) [Ratio] 0 % 0-5 [facility] Oncology Visit Reporton 05-14 Oncology Visit Report [facility] [place] [facility] [address] [place] [address] OFFICE VISIT Date of Service: 06/03/25 1542 MR#: [id number] Acct: [id number] Name: MELGOZAKATARINA Rep #: [id number] : 1955 From: Aileen Gibson MD Age/Sex: 69/M Location: [facility] Status: Signed HPI Subjective Date of Service 06/03/25 Chief Complaint Lung cancer follow-up History of Present Illness 69-year-old male, smoker until November 2021 with non-small cell lung cancer. March 12, 2020 CT abdomen and pelvis was obtained to evaluate for some flank pain and revealed a 1.1 cm nodule in the right lung lower lobe. April 01, 2020 PET/CT reported 1.7 cm right lower lobe lung nodule with SUV of 1.6 not fulfilling criteria for malignancy and close follow-up was recommended. December 01, 2020 CT chest reported 1.5 cm nodule pleural-based and close follow-up was recommended. June 03, 2021 CT chest 1.2 cm nodule close follow-up again recommended. November 10, 2021 1.4 cm nodule spiculated but appearance concerning for malignancy. November 25, 2021 Right lung mass, CT-guided core biopsy:Non-small cell carcinoma, favor adenocarcinoma with focal mucinous and squamoid differentiation. December 10, 2021 PFTs: Interpretation: Forced expiration spirometry shows a mild large airways obstructive ventilatory defect with an FEV1 of 70% predicted. There is no significant bronchodilator response by strict ATS criteria. Spirograms are of good quality and plateau slowly, indicating slowly emptying areas of the lungs. The respiratory flow volume loop shows decreased expiratory flow rates at all lung volumes consistent with airway obstruction. Lung volumes by body plethysmography show a normal total lung capacity at 5.72 L, 97% predicted. All other lung volumes are within normal limits. Diffusion capacity by carbon monoxide is normal at 81% predicted. The airway resistance is normal. No previous pulmonary function tests were available for review. Impression: Irreversible mild large airways obstructive ventilatory defect with preserved diffusion capacity and lung volumes, and a pattern consistent with chronic bronchitis. December 14, 2021 PET/CT: IMPRESSION: 1. ABNORMAL EXAMINATION. Right lower lobe nodule (recently biopsied) and mediastinal/bilateral hilar adenopathy meet criteria for viable neoplasm, new since prior PET scan. December 15, 2021 brain MRI: IMPRESSION: Normal MRI brain with and without contrast. December 25, 2021 EBUS: DIAGNOSIS CYTOLOGYA. EBUS, TBNA, site 10L #1: Predominantly respiratory epithelial cells. Negative for malignant cells. Granulomas are not seen.B. EBUS, TBNA, site 10L #2: Respiratory epithelial cells and lymphocytes present. Negative for malignant cells. Adequate for evaluation. Granulomas are not seen.C. EBUS, TBNA, site 7 #3: Respiratory epithelial cells and lymphocytes present. Negative for malignant cells. Adequate for evaluation. Granulomas are not seen.D. EBUS, TBNA, site 7 #4: Respiratory epithelial cells and lymphocytes present. Negative for malignant cells. Adequate for evaluation. Granulomas are not seen.E. EBUS, TBNA, site 7 #5: Predominantly respiratory epithelial cells. Negative for malignant cells. Granulomas are not seen.F. EBUS, TBNA, site 4R #6: Respiratory epithelial cells and lymphocytes present. Negative for malignant cells. Adequate for evaluation. Granulomas are not seen.G. EBUS, TBNA, site 4R #7: Respiratory epithelial cells and lymphocytes present. Negative for malignant cells. Adequate for evaluation. Granulomas are not seen.H. EBUS, TBNA, site 4R #8: Mostly blood. Rare respiratory epithelial cells.I. EBUS, TBNA, site 10L fluid (cell block):Negative for malignant cells.See cytology study.J. EBUS, TBNA, site 7 fluid (cell block):Negative for malignant cells.See cytology study.K. EBUS, TBNA, site 4R fluid (cell block):Negative for malignant cells.See cytology study January 26, 2022 patient underwent robotic assisted right lower lobectomy which showed a single focus 2.3 cm non-small cell carcinoma, predominantly an adenocarcinoma with areas suggestive of squamous differentiation. Visceral pleural invasion was present, lymphovascular invasion not identified, all margins negative for invasive carcinoma, all regional lymph nodes (total 8) were negative for metastatic cancer. EGFR mutation not detected. July 19, 2022 CT chest: IMPRESSION: Status post right lower lobectomy with resection of the spiculated right lower lobe pulmonary nodule. Stable mildly enlarged mediastinal and left hilar lymph nodes. January 17, 2023 CT chest abdomen: IMPRESSION: Stable examination. August 22, 2023 CT chest and abdomen: IMPRESSION: Stable examination. June 04, 2024 CT chest and abdomen: IMPRESSION: Stable examination. November 27, [address]: IMPRESSION: Stable examination. No (more content not included)... Normal [facility] Potassium measurement (mass/ volume)Ordered By: Alvina Torres on 06-03-2025 Potassium (Unsp spec) [Mass/Vol] 4.2 mmol/L 3.3-5.1 [facility] Serum creatinine measurement (mass/volume)Ordered By: Alvina Torres on 06-03-2025 Creatinine [Mass/Vol] 0.98 mg/dL 0.70-1.20 [facility] Serum globulin measurementOr dered By: Alvina Torres on 06-03-2025 Globulin (S) [Mass/Vol] 4.4 g/dL High 2.2-4.2 [facility] Serum glucose measurement (m ass/volume)Ordered By: Alvina Torres on 06-03-2025 Glucose [Mass/Vol] 90 mg/dL 70-99 [facility] Serum or plasma alanine ellison otransferase (ALT) measurementOrdered By: Alvina Torres on 06-03-2025 ALT [Catalytic activity/Vol] 35 U/L <47 [facility] Serum or plasma albumin rufus urement (mass/volume)Ordered By: Alvina Torres on 06-03-2025 Albumin [Mass/Vol] 4.3 g/dL 3.4-4.8 [facility] Serum or plasma albumin/glob ulin mass ratioOrdered By: Alvina Torres on 06-03-2025 Albumin/Globulin [Mass ratio] 1.0 {ratio} 0.9-2.4 [facility] Serum or plasma alkaline andrew sphatase measurementOrdered By: Alvina Torres on 06-03-2025 ALP [Catalytic activity/Vol] 99 U/L 40-129 [facility] Serum or plasma calcium rufus urement (mass/volume)Ordered By: Alvina Torres on 06-03-2025 Calcium [Mass/Vol] 9.8 mg/dL 7.6-11.0 [facility] Serum or plasma urea nitroge n measurement (mass/volume)Ordered By: Alvina Torres on 06-03-2025 Urea nitrogen [Mass/Vol] 17 mg/dL 4-19 [facility] Sodium levelOrdered By: Alvina Torres on 06-03-2025 Sodium [Moles/Vol] 138 mmol/L 133-145 [facility] Total proteinOrdered By: Jarret Torres on 06-03-2025 Protein [Mass/Vol] 8.8 g/dL High 5.9-8.4 [facility] CT Chest AND Abd W/ Contrast on 05-27-2025 CT Chest AND Abd W/ Contrast [facility] Imaging Services [address] [place] [address] CT Chest AND Abd W/ Contrast MR#: [id number] Acct: [id number] Name: KATARINA MELGOZA Rep #: [id number] : 1955 M 69 From: Ru Mock MD PCP: Dr. Connie Sun MD Status: REG CLI Study: CT Chest AND Abd W/ Contrast Date of Exam: Exam# [id number] Ordering Dr: Alvina Torres RN IV THERAPY RN IV THERAPY -C PROCEDURE: CT CHEST AND ABD W/ CONTRAST 05/27/2025 REASON FOR EXAM: [facility] TECHNIQUE: Chest and abdomen CT with IV contrast. Coronal and Sagittal reconstructions were provided. One or more dose reduction techniques were used (e.g., Automated exposure control, adjustment of the mA and/or kV according to patient size, use of iterative reconstruction technique. CONTRAST: Isovue-300 VOLUME: 99mL RADIATION DOSE SUMMARY: DLP: 1237.48 mGycm COMPARISON: Body CTs dated 11/27/2024, 06/04/2024. FINDINGS: Lungs/pleura: Clear. No airspace consolidation, pleural effusion or pneumothorax. Mild centrilobular emphysema. No suspicious focal nodules. Status post right lower lobectomy/segmentectom y with minimal scattered linear scarring in the right lung base. Patent central airways. Mediastinum/nodes: No suspicious mediastinal or hilar lymph node enlargement. Unchanged nonspecific subcentimeter mediastinal lymph nodes. No axillary adenopathy. Heart: Normal size. No pericardial effusion. Mild coronary artery calcification. Aorta: Stable infrarenal abdominal aortic saccular aneurysm measuring up to 3.2 cm diameter, with eccentric noncalcified mural plaque/thrombus. No dissection. Mild atherosclerotic disease. Liver: No focal lesion. Diffuse hepatic steatosis. Gallbladder: Unremarkable. No biliary ductal dilatation. Spleen: Normal in size. No focal lesion. Pancreas: Unremarkable. Adrenals: Unremarkable. No nodules. Kidneys: Unremarkable. No mass or hydronephrosis. Bowel: Visualized bowel segments demonstrate no evidence for obstruction or active inflammatory process. Normal appendix. Mild distal colonic diverticulosis. Lymph nodes: No enlarged intra-abdominal lymph nodes. Peritoneum / Retroperitoneum: No ascites or free air. Bones: Mild degenerative changes of the spine. No suspicious osseous lesion. CT/CT Chest AND Abd W/ Contrast IMPRESSION: Stable exam. No evidence for recurrence/progression of malignancy. No acute findings. Reading Location: [facility] CC: RN IV THERAPY-Ayad Torres; Dr. Connie Sun MD Mica Washer Gluer: Signed Normal [facility] Oncology Visit Reporton 02-11 Oncology [facility] Report [facility] [place] [address] OFFICE VISIT Date of Service: 03/04/25 1109 MR#: [id number] Acct: [id number] Name: KATARINA MELGOZA Rep #: [id number] : 1955 From: Alvina Torres NP RN IV THERAPY -C Age/Sex: 69/M Location: [facility] [place] Status: Signed HPI Subjective Date of Service 03/04/25 Chief Complaint Lung cancer follow-up History of Present Illness 69-year-old male, smoker until November 2021 with non-small cell lung cancer. March 12, 2020 CT abdomen and pelvis was obtained to evaluate for some flank pain and revealed a 1.1 cm nodule in the right lung lower lobe. April 01, 2020 PET/CT reported 1.7 cm right lower lobe lung nodule with SUV of 1.6 not fulfilling criteria for malignancy and close follow-up was recommended. December 01, 2020 CT chest reported 1.5 cm nodule pleural-based and close follow-up was recommended. June 03, 2021 CT chest 1.2 cm nodule close follow-up again recommended. November 10, 2021 1.4 cm nodule spiculated but appearance concerning for malignancy. November 25, 2021 Right lung mass, CT-guided core biopsy:Non-small cell carcinoma, favor adenocarcinoma with focal mucinous and squamoid differentiation. December 10, 2021 PFTs: Interpretation: Forced expiration spirometry shows a mild large airways obstructive ventilatory defect with an FEV1 of 70% predicted. There is no significant bronchodilator response by strict ATS criteria. Spirograms are of good quality and plateau slowly, indicating slowly emptying areas of the lungs. The respiratory flow volume loop shows decreased expiratory flow rates at all lung volumes consistent with airway obstruction. Lung volumes by body plethysmography show a normal total lung capacity at 5.72 L, 97% predicted. All other lung volumes are within normal limits. Diffusion capacity by carbon monoxide is normal at 81% predicted. The airway resistance is normal. No previous pulmonary function tests were available for review. Impression: Irreversible mild large airways obstructive ventilatory defect with preserved diffusion capacity and lung volumes, and a pattern consistent with chronic bronchitis. December 14, 2021 PET/CT: IMPRESSION: 1. ABNORMAL EXAMINATION. Right lower lobe nodule (recently biopsied) and mediastinal/bilateral hilar adenopathy meet criteria for viable neoplasm, new since prior PET scan. December 15, 2021 brain MRI: IMPRESSION: Normal MRI brain with and without contrast. December 25, 2021 EBUS: DIAGNOSIS CYTOLOGYA. EBUS, TBNA, site 10L #1: Predominantly respiratory epithelial cells. Negative for malignant cells. Granulomas are not seen.B. EBUS, TBNA, site 10L #2: Respiratory epithelial cells and lymphocytes present. Negative for malignant cells. Adequate for evaluation. Granulomas are not seen.C. EBUS, TBNA, site 7 #3: Respiratory epithelial cells and lymphocytes present. Negative for malignant cells. Adequate for evaluation. Granulomas are not seen.D. EBUS, TBNA, site 7 #4: Respiratory epithelial cells and lymphocytes present. Negative for malignant cells. Adequate for evaluation. Granulomas are not seen.E. EBUS, TBNA, site 7 #5: Predominantly respiratory epithelial cells. Negative for malignant cells. Granulomas are not seen.F. EBUS, TBNA, site 4R #6: Respiratory epithelial cells and lymphocytes present. Negative for malignant cells. Adequate for evaluation. Granulomas are not seen.G. EBUS, TBNA, site 4R #7: Respiratory epithelial cells and lymphocytes present. Negative for malignant cells. Adequate for evaluation. Granulomas are not seen.H. EBUS, TBNA, site 4R #8: Mostly blood. Rare respiratory epithelial cells.I. EBUS, TBNA, site 10L fluid (cell block):Negative for malignant cells.See cytology study.J. EBUS, TBNA, site 7 fluid (cell block):Negative for malignant cells.See cytology study.K. EBUS, TBNA, site 4R fluid (cell block):Negative for malignant cells.See cytology study January 26, 2022 patient underwent robotic assisted right lower lobectomy which showed a single focus 2.3 cm non-small cell carcinoma, predominantly an adenocarcinoma with areas suggestive of squamous differentiation. Visceral pleural invasion was present, lymphovascular invasion not identified, all margins negative for invasive carcinoma, all regional lymph nodes (total 8) were negative for metastatic cancer. EGFR mutation not detected. July 19, 2022 CT chest: IMPRESSION: Status post right lower lobectomy with resection of the spiculated right lower lobe pulmonary nodule. Stable mildly enlarged mediastinal and left hilar lymph nodes. January 17, 2023 CT chest abdomen: IMPRESSION: Stable examination. August 22, 2023 CT chest and abdomen: IMPRESSION: Stable examination. June 04, 2024 CT chest and abdomen: IMPRESSION: Stable examination. November 27, [address]: IMPRESSION: Stable examination (more content not included)... Normal [facility] Absolute lymphocyte countOrd ered By: [facility] on 12-04-2024 Lymphocytes Auto (Unsp spec) [#/Vol] 2.62 10*3/uL 0.83-4.51 [facility] Absolute neutrophil countOrd ered By: [facility] on 12-04-2024 Neutrophils (Bld) [#/Vol] 4.3 10*3/uL 2.0-7.7 [facility] Anion gap in Serum or Plasma Ordered By: Aileen Gibson on 12-04-2024 Anion gap [Moles/Vol] 10 mmol/L 5-15 [facility] Automated lymphocyte count a s percentage of total leukocytesOrdered By: Aileen Gibson on 12-04-2024 Lymphocytes/100 WBC Auto (Unsp spec) 32.3 % 19-41 [facility] BUN/creatinine ratioOrdered By: [facility] on 12-04-2024 Urea nitrogen/Creatinine [Mass ratio] 18.9 mg/mg 10-20 [facility] Basophil percentageOrdered B y: Aileen Gibson on 12-04-2024 Basophils/100 WBC (Bld) 0.7 % 0-1 [facility] Bilirubin, totalOrdered By: Aileen Gibson on 12-04-2024 Bilirubin [Mass/Vol] 0.72 mg/dL 0.00-1.30 [facility] CBC W/Diff, Automatedon 11-12 Absolute Lymph 2.62 X10 3/uL Normal 0.83-4.51 [facility] Comment on above: Performed By: #### L 100.0100, L500.4050 #### [facility] [address] [place], [address] Absolute Neut 4.3 X10 3/uL Normal 2.0-7.7 [facility] Comment on above: Performed By: #### L 100.0100, L500.4050 #### [facility] [address] [place], [address] Basophils/100 WBC (Bld) 0.7 % Normal 0-1 [facility] Comment on above: Performed By: #### L 100.0100, L500.4050 #### [facility] [address] [place], [address] Eosinophils/100 WBC (Bld) 1.6 % Normal 0-5 [facility] Comment on above: Performed By: #### L 100.0100, L500.4050 #### [facility] [address] [place], [address] Erythrocyte distribution width (RBC) [Ratio] 15.1 % High 11.6-14.6 [facility] Comment on above: Performed By: #### L 100.0100, L500.4050 #### [facility] [address] [place], [address] Hematocrit (Bld) [Volume fraction] 49.4 % Normal 40-54 [facility] Comment on above: Performed By: #### L 100.0100, L500.4050 #### [facility] [address] [place], [address] Hemoglobin (Bld) [Mass/Vol] 16.8 g/dL High 13.0-16.5 [facility] Comment on above: Performed By: #### L 100.0100, L500.4050 #### [facility] [address] [place], [address] IG% 0.600 Normal 0.0-0.9 [facility] Comment on above: Result Comment: IG% - Immature Granulocytes (promyelocytes, myelocytes and metamyelocytes) > 1% indicates that a LEFT SHIFT is Present. Performed By: #### L 100.0100, L500.4050 #### [facility] [address] [place], [address] Lymphocytes/100 WBC (Bld) 32.3 % Normal 19-41 [facility] Comment on above: Performed By: #### L 100.0100, L500.4050 #### [facility] [address] [place], [address] MCH (RBC) [Entitic mass] 32.1 pg High 27.0-32.0 [facility] Comment on above: Performed By: #### L 100.0100, L500.4050 #### [facility] [address] [place], [address] MCHC (RBC) [Mass/Vol] 34.0 g/dL Normal 32-36 [facility] Comment on above: Performed By: #### L 100.0100, L500.4050 #### [facility] [address] [place], [address] MCV (RBC) [Entitic vol] 94.5 fL High 80-94 [facility] Comment on above: Performed By: #### L 100.0100, L500.4050 #### [facility] [address] [place], [address] Monocytes/100 WBC (Bld) 11.1 % High 0-10 [facility] Comment on above: Performed By: #### L 100.0100, L500.4050 #### [facility] [address] [place], [address] Neutrophils/100 WBC (Bld) 53.7 % Normal 47-70 [facility] Comment on above: Performed By: #### L 100.0100, L500.4050 #### [facility] [address] [place], [address] Nucleated RBC (Bld) [#/Vol] 0 10*3/uL Normal 0-5 [facility] Comment on above: Performed By: #### L 100.0100, L500.4050 #### [facility] [address] [place], [address] Platelet mean volume (Bld) [Entitic vol] 10.4 fL Normal 6.2-12.0 [facility] Comment on above: Performed By: #### L 100.0100, L500.4050 #### [facility] [address] [place], [address] Platelets (Bld) [#/Vol] 231 10*3/uL Normal 150-450 [facility] Comment on above: Performed By: #### L 100.0100, L500.4050 #### [facility] [address] [place], [address] RBC (Bld) [#/Vol] 5.23 10*6/uL Normal 4.6-6.2 [facility] Comment on above: Performed By: #### L 100.0100, L500.4050 #### [facility] [address] [place], [address] RDW SD 52.9 fl High 35.1-43.9 [facility] Comment on above: Performed By: #### L 100.0100, L500.4050 #### [facility] [address] [place], [address] WBC (Bld) [#/Vol] 8.1 10*3/uL Normal 4.4-11.0 [facility] Comment on above: Performed By: #### L 100.0100, L500.4050 #### [facility] [address] [place], [address] Carbon dioxide, total [Moles /volume] in Central venous bloodOrdered By: Aileen Gibson on 12-04-2024 CO2 [Moles/Vol] 22.6 mmol/L 21.0-32.0 [facility] Chloride assayOrdered By: Soco Gibson on 12-04-2024 Chloride [Moles/Vol] 104 mmol/L 98-108 [facility] Comprehensive Metabolic Prof ilon 12-04-2024 Albumin [Mass/Vol] 4.2 g/dL Normal 3.4-4.8 [facility] Comment on above: Performed By: #### L 100.0100, L500.4050 #### [facility] [address] [place], [address] Albumin/Globulin [Mass ratio] 1.1 {ratio} Normal 0.9-2.4 [facility] Comment on above: Performed By: #### L 100.0100, L500.4050 #### [facility] [address] [place], [address] ALK PHOS 113 U/L Normal 40-129 [facility] Comment on above: Performed By: #### L 100.0100, L500.4050 #### [facility] [address] [place], [address] ALT [Catalytic activity/Vol] 29 U/L Normal <=46 [facility] Comment on above: Performed By: #### L 100.0100, L500.4050 #### [facility] [address] [place], [address] AST [Catalytic activity/Vol] 33 U/L Normal <=37 [facility] Comment on above: Performed By: #### L 100.0100, L500.4050 #### [facility] [address] [place], [address] Bilirubin [Mass/Vol] 0.72 mg/dL Normal 0.00-1.30 [facility] Comment on above: Performed By: #### L 100.0100, L500.4050 #### [facility] [address] [place], [address] BUN/CRE 18.9 RATIO Normal 10-20 [facility] Comment on above: Performed By: #### L 100.0100, L500.4050 #### [facility] [address] [place], [address] Calcium [Mass/Vol] 9.6 mg/dL Normal 7.6-11.0 [facility] Comment on above: Performed By: #### L 100.0100, L500.4050 #### [facility] [address] [place], [address] Chloride [Moles/Vol] 104 mmol/L Normal 98-108 [facility] Comment on above: Performed By: #### L 100.0100, L500.4050 #### [facility] [address] [place], [address] CO2 [Moles/Vol] 22.6 mmol/L Normal 21.0-32.0 [facility] Comment on above: Performed By: #### L 100.0100, L500.4050 #### [facility] [address] [place], [address] Creatinine [Mass/Vol] 1.02 mg/dL Normal 0.70-1.20 [facility] Comment on above: Performed By: #### L 100.0100, L500.4050 #### [facility] [address] [place], [address] ECRCL 72.78 ml/min Normal 50-250 [facility] Comment on above: Performed By: #### L 100.0100, L500.4050 #### [facility] [address] [place], [address] GAP 10 Normal 5-15 [facility] Comment on above: Performed By: #### L 100.0100, L500.4050 #### [facility] [address] [place], [address] GFR/1.73 sq M.predicted among non-blacks MDRD (S/P/Bld) [Vol rate/Area] 81 mL/min/{1.73_m2} Normal >60 [facility] Comment on above: Result Comment: mL/m in/1.73m2 CKD-EPI Creatinine Equation (2020) Performed By: #### L 100.0100, L500.4050 #### [facility] [address] [place], [address] Globulin (S) [Mass/Vol] 3.9 g/dL Normal 2.2-4.2 [facility] Comment on above: Performed By: #### L 100.0100, L500.4050 #### [facility] [address] [place], [address] Glucose [Mass/Vol] 99 mg/dL Normal 70-99 [facility] Comment on above: Performed By: #### L 100.0100, L500.4050 #### [facility] [address] [place], [address] Potassium [Moles/Vol] 4.3 mmol/L Normal 3.3-5.1 [facility] Comment on above: Performed By: #### L 100.0100, L500.4050 #### [facility] [address] [place], [address] Sodium [Moles/Vol] 137 mmol/L Normal 133-145 [facility] Comment on above: Performed By: #### L 100.0100, L500.4050 #### [facility] [address] [place], [address] T PROT 8.2 g/dL Normal 5.9-8.4 [facility] Comment on above: Performed By: #### L 100.0100, L500.4050 #### [facility] [address] [place], [address] Urea nitrogen [Mass/Vol] 19 mg/dL Normal 4-19 [facility] Comment on above: Performed By: #### L 100.0100, L500.4050 #### [facility] [address] [place], [address] Eosinophil percentageOrdered By: Aileen Gibson on 12-04-2024 Eosinophils/100 WBC (Bld) 1.6 % 0-5 [facility] Erythrocyte distribution wid th ratioOrdered By: Aileen Gibson on 12-04-2024 Erythrocyte distribution width (RBC) [Ratio] 15.1 % High 11.6-14.6 [facility] Erythrocyte distribution wid th standard deviationOrdered By: Aileen Gibson on 12-04-2024 Erythrocyte distribution width (RBC) [Ratio] 52.9 fl High 35.1-43.9 [facility] Glomerular filtration rate ( GFR) estimation/1.73 sq m using serum, plasma, or whole bOrdered By: Aileen Gibson on 12-04-2024 GFR/1.73 sq M.predicted among non-blacks MDRD (S/P/Bld) [Vol rate/Area] 81 mL/min/{1.73_m2} >60 [facility] Comment on above: mL/min/1.73m2 CKD-EP I Creatinine Equation (2020) Hematocrit Auto (Bld) [Volum e fraction]Ordered By: Aileen Gibson on 12-04-2024 Hematocrit (Bld) [Volume fraction] 49.4 % 40-54 [facility] Hemoglobin measurementOrdere d By: Aileen Gibson on 12-04-2024 Hemoglobin (Bld) [Mass/Vol] 16.8 g/dL High 13.0-16.5 [facility] Immature granulocytes/100 WB C Auto (Bld)Ordered By: Aileen Gibson on 12-04-2024 Immature granulocytes/100 WBC (Bld) 0.600 % 0.0-0.9 [facility] Comment on above: IG% - Immature Granu locytes (promyelocytes, myelocytes and metamyelocytes) > 1% indicates that a LEFT SHIFT is Present. Laboratory - Chemistry and C hemistry - challengeOrdered By: Aileen Gibson on 12-04-2024 AST [Catalytic activity/Vol] 33 U/L <38 [facility] MCV (mean corpuscular volume ) determinationOrdered By: Aileen Gibson on 12-04-2024 MCV (RBC) [Entitic vol] 94.5 fL High 80-94 [facility] Mean corpuscular hemoglobin (MCH) determinationOrdered By: Aileen Gibson on 12-04-2024 MCH (RBC) [Entitic mass] 32.1 pg High 27.0-32.0 [facility] Mean corpuscular hemoglobin concentration (MCHC) determinationOrdered By: Aileen Gibson on 12-04-2024 MCHC (RBC) [Mass/Vol] 34.0 g/dL 32-36 [facility] Mean platelet volume determi nationOrdered By: Aileen Gibson on 12-04-2024 Platelet mean volume (Bld) [Entitic vol] 10.4 fL 6.2-12.0 [facility] Monocyte percentageOrdered B y: Aileen Gibson on 12-04-2024 Monocytes/100 WBC (Bld) 11.1 % High 0-10 [facility] Neutrophil percentageOrdered By: Aileen Gibson on 12-04-2024 Neutrophils/100 WBC (Bld) 53.7 % 47-70 [facility] Nucleated red blood cell per centageOrdered By: Aileen Gibson on 12-04-2024 Nucleated RBC/100 WBC (Bld) [Ratio] 0 % 0-5 [facility] Oncology Visit Reporton 11-12 Oncology Visit Report [facility] [address] [place] [address] OFFICE VISIT Date of Service: 12/04/24 1336 MR#: [id number] Acct: [id number] Name: KATARINA MELGOZA Rep #: [id number] : 1955 From: Aileen Gibson MD Age/Sex: 68/M Location: [facility] [place] Status: Signed HPI Subjective Date of Service 12/04/24 Chief Complaint Lung cancer follow-up History of Present Illness 68-year-old male, smoker until November 2021 with non-small cell lung cancer. March 12, 2020 CT abdomen and pelvis was obtained to evaluate for some flank pain and revealed a 1.1 cm nodule in the right lung lower lobe. April 01, 2020 PET/CT reported 1.7 cm right lower lobe lung nodule with SUV of 1.6 not fulfilling criteria for malignancy and close follow-up was recommended. December 01, 2020 CT chest reported 1.5 cm nodule pleural-based and close follow-up was recommended. June 03, 2021 CT chest 1.2 cm nodule close follow-up again recommended. November 10, 2021 1.4 cm nodule spiculated but appearance concerning for malignancy. November 25, 2021 Right lung mass, CT-guided core biopsy:Non-small cell carcinoma, favor adenocarcinoma with focal mucinous and squamoid differentiation. December 10, 2021 PFTs: Interpretation: Forced expiration spirometry shows a mild large airways obstructive ventilatory defect with an FEV1 of 70% predicted. There is no significant bronchodilator response by strict ATS criteria. Spirograms are of good quality and plateau slowly, indicating slowly emptying areas of the lungs. The respiratory flow volume loop shows decreased expiratory flow rates at all lung volumes consistent with airway obstruction. Lung volumes by body plethysmography show a normal total lung capacity at 5.72 L, 97% predicted. All other lung volumes are within normal limits. Diffusion capacity by carbon monoxide is normal at 81% predicted. The airway resistance is normal. No previous pulmonary function tests were available for review. Impression: Irreversible mild large airways obstructive ventilatory defect with preserved diffusion capacity and lung volumes, and a pattern consistent with chronic bronchitis. December 14, 2021 PET/CT: IMPRESSION: 1. ABNORMAL EXAMINATION. Right lower lobe nodule (recently biopsied) and mediastinal/bilateral hilar adenopathy meet criteria for viable neoplasm, new since prior PET scan. December 15, 2021 brain MRI: IMPRESSION: Normal MRI brain with and without contrast. December 25, 2021 EBUS: DIAGNOSIS CYTOLOGYA. EBUS, TBNA, site 10L #1: Predominantly respiratory epithelial cells. Negative for malignant cells. Granulomas are not seen.B. EBUS, TBNA, site 10L #2: Respiratory epithelial cells and lymphocytes present. Negative for malignant cells. Adequate for evaluation. Granulomas are not seen.C. EBUS, TBNA, site 7 #3: Respiratory epithelial cells and lymphocytes present. Negative for malignant cells. Adequate for evaluation. Granulomas are not seen.D. EBUS, TBNA, site 7 #4: Respiratory epithelial cells and lymphocytes present. Negative for malignant cells. Adequate for evaluation. Granulomas are not seen.E. EBUS, TBNA, site 7 #5: Predominantly respiratory epithelial cells. Negative for malignant cells. Granulomas are not seen.F. EBUS, TBNA, site 4R #6: Respiratory epithelial cells and lymphocytes present. Negative for malignant cells. Adequate for evaluation. Granulomas are not seen.G. EBUS, TBNA, site 4R #7: Respiratory epithelial cells and lymphocytes present. Negative for malignant cells. Adequate for evaluation. Granulomas are not seen.H. EBUS, TBNA, site 4R #8: Mostly blood. Rare respiratory epithelial cells.I. EBUS, TBNA, site 10L fluid (cell block):Negative for malignant cells.See cytology study.J. EBUS, TBNA, site 7 fluid (cell block):Negative for malignant cells.See cytology study.K. EBUS, TBNA, site 4R fluid (cell block):Negative for malignant cells.See cytology study January 26, 2022 patient underwent robotic assisted right lower lobectomy which showed a single focus 2.3 cm non-small cell carcinoma, predominantly an adenocarcinoma with areas suggestive of squamous differentiation. Visceral pleural invasion was present, lymphovascular invasion not identified, all margins negative for invasive carcinoma, all regional lymph nodes (total 8) were negative for metastatic cancer. EGFR mutation not detected. July 19, 2022 CT chest: IMPRESSION: Status post right lower lobectomy with resection of the spiculated right lower lobe pulmonary nodule. Stable mildly enlarged mediastinal and left hilar lymph nodes. January 17, 2023 CT chest abdomen: IMPRESSION: Stable examination. August 22, 2023 CT chest and abdomen: IMPRESSION: Stable examination. June 04, 2024 CT chest and abdomen: IMPRESSION: Stable examination. November 27, [address]: IMPRESSION: Stable examination. No (more content not included)... Normal [facility] Platelet countOrdered By: Soco Gibson on 12-04-2024 Platelets (Bld) [#/Vol] 231 10*3/uL 150-450 [facility] Potassium measurement (mass/ volume)Ordered By: Aileen Gibson on 12-04-2024 Potassium (Unsp spec) [Mass/Vol] 4.3 mmol/L 3.3-5.1 [facility] RBC Auto (Bld) [#/Vol]Ordere d By: Aileen Gibson on 12-04-2024 RBC (Bld) [#/Vol] 5.23 10*6/uL 4.6-6.2 [facility] Serum creatinine measurement (mass/volume)Ordered By: Aileen Gibson on 12-04-2024 Creatinine [Mass/Vol] 1.02 mg/dL 0.70-1.20 [facility] Serum globulin measurementOr dered By: Aileen Gibson on 12-04-2024 Globulin (S) [Mass/Vol] 3.9 g/dL 2.2-4.2 [facility] Serum glucose measurement (m ass/volume)Ordered By: Aileen Gibson on 12-04-2024 Glucose [Mass/Vol] 99 mg/dL 70-99 [facility] Serum or plasma alanine ellison otransferase (ALT) measurementOrdered By: Aileen Gibson on 12-04-2024 ALT [Catalytic activity/Vol] 29 U/L <47 [facility] Serum or plasma albumin rufus urement (mass/volume)Ordered By: Aileen Gibson on 12-04-2024 Albumin [Mass/Vol] 4.2 g/dL 3.4-4.8 [facility] Serum or plasma albumin/glob ulin mass ratioOrdered By: Aileen Arthur on 12-04-2024 Albumin/Globulin [Mass ratio] 1.1 {ratio} 0.9-2.4 [facility] Serum or plasma alkaline andrew sphatase measurementOrdered By: Aileen Arthur on 12-04-2024 ALP [Catalytic activity/Vol] 113 U/L 40-129 [facility] Serum or plasma calcium rufus urement (mass/volume)Ordered By: Jaimeshelton Gibson on 12-04-2024 Calcium [Mass/Vol] 9.6 mg/dL 7.6-11.0 [facility] Serum or plasma urea nitroge n measurement (mass/volume)Ordered By: aJimeshelton Gibson on 12-04-2024 Urea nitrogen [Mass/Vol] 19 mg/dL 4-19 [facility] Sodium levelOrdered By: Jaime peoples Arthur on 12-04-2024 Sodium [Moles/Vol] 137 mmol/L 133-145 [facility] Total proteinOrdered By: Usman Gibson on 12-04-2024 Protein [Mass/Vol] 8.2 g/dL 5.9-8.4 [facility] White blood cell (WBC) count Ordered By: Aileen Arthur on 12-04-2024 WBC (Bld) [#/Vol] 8.1 10*3/uL 4.4-11.0 [facility] CREATININE FINGERSTICKon CREATININE WB < 1.0 Normal 0.70-1.30 [facility] Comment on above: Performed By: #### L 9100.0200 ####[facility] [address] [place], [place], [id number] EGFR WB > 60.0000 Normal >60 [facility] Comment on above: Performed By: #### L 9100.0200 ####[facility] [address] [place], [address] CT Chest AND Abd W/ Contrast on 11-27-2024 CT Chest AND Abd W/ Contrast [facility] [address] [place], [place] [address] CT Chest AND Abd W/ Contrast MR#: [id number] Acct: [id number] Name: KATARINA MELGOZA Rep #: [id number] : 1955 M 68 From: Jermain rose MD PCP: Dr. Connie Sun MD Status: REG CLI Study: CT Chest AND Abd W/ Contrast Date of Exam: Exam# [id number] Ordering Dr: Aileen Gibson MD PROCEDURE: CT CHEST AND ABD W/ CONTRAST 11/27/2024 REASON FOR EXAM: F/U NSCLC IV CONTRAST ONLY TECHNIQUE: Chest and abdomen CT with intravenous contrast. Coronal and Sagittal reconstruction series were provided. One or more dose reduction techniques were used (e.g., Automated exposure control, adjustment of the mA and/or kV according to patient size, use of iterative reconstruction technique. PATIENT PREPARATION: Per protocol ORAL CONTRAST TYPE: None. CONTRAST: Isovue 370 VOLUME: 100mL RADIATION DOSE SUMMARY: CTDlvol: 18.5 mGy DLP: 1207.45 mGycm COMPARISON: Comparison is made with prior study dated June 04, 2024. FINDINGS: CT CHEST: Hardware: None Lymph nodes: Small stable benign-appearing mediastinal lymph nodes. Heart and Vasculature: The heart is not enlarged. Minimal coronary artery calcification. Lungs and Airways: The patient is status post right lower lobectomy. Minimal scarring at the right lung base. Pleura: Unremarkable. CT ABDOMEN: Liver: Diffuse fatty infiltration. Gallbladder: Unremarkable Spleen: Normal size. Pancreas: Normal size without evidence of mass surrounding inflammation or ductal dilation. Adrenals: Unremarkable Kidneys: Normal renal sizes. No hydronephrosis. Bowel: Sigmoid diverticular disease. Lymph nodes: Unremarkable. Vasculature: Mild diffuse atherosclerotic calcifications are noted. Stable 3 cm infrarenal abdominal aortic aneurysm with mural thrombus. Peritoneum / Retroperitoneum: Small hiatal hernia. Bones: Degenerative changes of the spine. CT/CT Chest AND Abd W/ Contrast IMPRESSION: Stable examination. No acute abnormality is seen. Reading Location: [place] [address] CC: Dr. Connie Sun MD; Dr. Aileen Gibson MD Mica Washer Gluer: Signed Normal [facility] Creatinine measurement at be dsideOrdered By: Aileen Gibson on 11-27-2024 Bedside Creatinine < 1.0 mg/dL 0.70-1.30 [facility] EGFROrdered By: Aileen faria on 11-27-2024 Bedside Estimated GFR (eGFR) > 60.0000 mL/min >60 [facility] GFR/1.73 sq M.predicted among non-blacks MDRD (S/P/Bld) [Vol rate/Area] mL/min/{1.73_m2} >60 [facility] Bilirubin directOrdered By: William Padron on 11-04-2024 Bilirubin.direct [Mass/Vol] 0.21 mg/dL 0.00-0.30 [facility] Bilirubin, totalOrdered By: William Padron on 11-04-2024 Bilirubin [Mass/Vol] 0.59 mg/dL 0.00-1.30 [facility] Calculated very low density lipoprotein (VLDL) cholesterol measurementOrdered By: William Padron on 11-04-2024 Calculated very low density lipoprotein (VLDL) cholesterol measurement 24 mg/dL 5-40 [facility] VLDL Cholesterol 24 mg/dL 5-40 [facility] LDL calc ser/plasOrdered By: William Padron on 11-04-2024 Cholesterol in LDL [Mass/Vol] 69 mg/dL [facility] Comment on above: Feqnfefnbh=301-024 m g/dL & Higher Hqvx=285 mg/dL or greaterPrevious reported result: 104 mg/dLEdited by: KAYLEEN on 11/04/24:1214 AMENDED REPORT 11/04/244 CLDL previously reported as: 104 mg/dL Tkjdjvriqm=513-290 mg/dL & Higher Yktd=225 mg/dL or greater LDL Cholesterol, Calculated 69 mg/dL [facility] Comment on above: Evbjiklaef=903-602 m g/dL & Higher Czvu=106 mg/dL or greaterPrevious reported result: 104 mg/dLEdited by: KAYLEEN on 11/04/24:1214 AMENDED REPORT 11/04/244 CLDL previously reported as: 104 mg/dL Bmptzwirls=822-725 mg/dL & Higher Htka=336 mg/dL or greater Laboratory - Chemistry and C hemistry - challengeOrdered By: William Nereida on 11-04-2024 AST [Catalytic activity/Vol] 24 U/L <38 [facility] Lipid Profileon 11-04-2024 Cholesterol in HDL [Mass/Vol] 40 mg/dL Normal [facility] Comment on above: Result Comment: [place] onal Cholesterol Education Program (NCEP) guidelines: <40 mg/dL: Low HDL-cholesterol (major risk factor for CHD) >= 60 mg/dL: High HDL-cholesterol (negative risk factor for CHD) HDL-cholesterol is affected by a number of factors, e.g. smoking, exercise, hormones, sex and age. AMENDED REPORT 11/04/24 1214 HDL previously reported as: 5 L mg/dL National Cholesterol Education Program (NCEP) guidelines: <40 mg/dL: Low HDL-cholesterol (major risk factor for CHD) >= 60 mg/dL: High HDL-cholesterol (negative risk factor for CHD) HDL-cholesterol is affected by a number of factors, e.g. smoking, exercise, hormones, sex and age. Performed By: #### L 500.3400, L500.4100 ####[facility] [address] [place], [place], [id number] Cholesterol in LDL [Mass/Vol] 69 mg/dL Normal [facility] Comment on above: Result Comment: Bord benfzu=166-433 mg/dL Higher Nzwq=721 mg/dL or greater AMENDED REPORT 11/04/24 1214 CLDL previously reported as: 104 mg/dL Nnoztdoiog=865-523 mg/dL Higher Enhf=021 mg/dL or greater Performed By: #### L 500.3400, L500.4100 ####[facility] [address] [place], [place], [id number] Liver Profileon 11-04-2024 Albumin [Mass/Vol] 4.0 g/dL Normal 3.4-4.8 [facility] Comment on above: Performed By: #### L 500.3400, L500.4100 #### [facility] [address] [place], [address] ALK PHOS 91 U/L Normal 40-129 [facility] Comment on above: Performed By: #### L 500.3400, L500.4100 #### [facility] [address] [place], [address] ALT [Catalytic activity/Vol] 19 U/L Normal <=46 [facility] Comment on above: Performed By: #### L 500.3400, L500.4100 #### [facility] [address] [place], [address] AST [Catalytic activity/Vol] 24 U/L Normal <=37 [facility] Comment on above: Performed By: #### L 500.3400, L500.4100 #### [facility] [address] [place], [address] Bilirubin [Mass/Vol] 0.59 mg/dL Normal 0.00-1.30 [facility] Comment on above: Performed By: #### L 500.3400, L500.4100 #### [facility] [address] [place], [address] Bilirubin.direct [Mass/Vol] 0.21 mg/dL Normal 0.00-0.30 [facility] Comment on above: Performed By: #### L 500.3400, L500.4100 #### [facility] [address] [place], [address] Globulin (S) [Mass/Vol] 3.8 g/dL Normal 2.2-4.2 [facility] Comment on above: Performed By: #### L 500.3400, L500.4100 #### [facility] [address] [place], [address] T PROT 7.8 g/dL Normal 5.9-8.4 [facility] Comment on above: Performed By: #### L 500.3400, L500.4100 #### [facility] [address] [place], [address] Screening total cholesterol/ high density lipoprotein (HDL) cholesterol ratioOrdered By: William Padron on 11-04-2024 Cholesterol.total/Christina sterol in HDL [Mass ratio] 25.52 {ratio} [facility] Serum globulin measurementOr dered By: William Padron on 11-04-2024 Globulin (S) [Mass/Vol] 3.8 g/dL 2.2-4.2 [facility] Serum or plasma alanine ellison otransferase (ALT) measurementOrdered By: William Padron on 11-04-2024 ALT [Catalytic activity/Vol] 19 U/L <47 [facility] Serum or plasma albumin rufus urement (mass/volume)Ordered By: William Padron on 11-04-2024 Albumin [Mass/Vol] 4.0 g/dL 3.4-4.8 [facility] Serum or plasma alkaline andrew sphatase measurementOrdered By: William Padron on 11-04-2024 ALP [Catalytic activity/Vol] 91 U/L 40-129 [facility] Serum or plasma cholesterol in HDL measurement (mass/volume)Ordered By: William Padron on 11-04-2024 Cholesterol in HDL [Mass/Vol] 40 mg/dL >40 [facility] Comment on above: National Cholesterol Education Program (NCEP) guidelines:<40 mg/dL: Low HDL-cholesterol (major risk factor for CHD)>= 60 mg/dL: High HDL-cholesterol (negative risk factor for CHD)HDL-cholesterol is affected by a number of factors, e.g. smoking, exercise, hormones, sex and age.Previous reported result: 5 mg/dLEdited by: KAYLEEN on 11/04/24:1214 AMENDED REPORT 11/04/24 1214 HDL previously reported as: 5 L mg/dL National Cholesterol Education Program (NCEP) guidelines:<40 mg/dL: Low HDL-cholesterol (major risk factor for CHD)>= 60 mg/dL: High HDL-cholesterol (negative risk factor for CHD)HDL-cholesterol is affected by a number of factors, e.g. smoking, exercise, hormones, sex and age. Serum or plasma cholesterol measurement (mass/volume)Ordered By: William Padron on 11-04-2024 Cholesterol [Mass/Vol] 134 mg/dL <201 [facility] Comment on above: Cholesterol level, D esirable <200 mg/dLBorderline high cholesterol 200-239 mg/dLHigh cholesterol >=240 mg/dLRecommendations of the NCEP Adult Treatment Panel for the following risk-cutoff thresholds for the [place] population. Total proteinOrdered By: Jeaneth Padron on 11-04-2024 Protein [Mass/Vol] 7.8 g/dL 5.9-8.4 [facility] Triglycerides measurementOrd ered By: William Padron on 11-04-2024 Triglyceride [Mass/Vol] 122 mg/dL <199 [facility] Comment on above: The drugs N-Acetylcy steine and Metamizole may falsely depress this assay. Normal range: <150 mg/dLBorderline High: 150-199 mg/dLHigh: 200-499 mg/dLVery High: >500 mg/dL Cardiology Visit Reporton Cardiology Visit Report [facility] [address] [place], [place] [address] OFFICE VISIT Date of Service: 10/31/24 MR#: [id number] Acct: [id number] Name: KATARINA MELGOZA Rep #: [id number] : 1955 Provider: Dr. William Padron MD Age/Sex: 68/M Location: [facility] [place] Status: Signed HPI HPI History of Present Illness Details: Katarina Melgoza is a 68 year old male that presents here today for a cardiovascular follow-up. He has a history of CAD, previous PCI (LCx/OM-2016 at [facility]), ischemic mediated cardiomyopathy, hyperlipidemia, and hypertension. Patient completed his chemotherapy for his nonsmall cell carcinoma in 05/2022. He underwent a lobectomy for the above. Stress test in 2022 was negative for ischemia but did demonstrate previous infarct. From a cardiac standpoint, patient is doing well. He does not have any chest discomfort/heaviness/t ightness. His exercise tolerance is stable for his age. He does not have any worsening symptoms of shortness of breath. He denies any PND. He does not have any orthopnea. He does not have any symptoms of congestive heart failure. He does not have any palpitations that he is aware of. He does not have any lightheadedness or dizziness. He does not have any near-syncope or syncope. He does not have any lower extremity edema. He does not have any symptoms of claudication. His blood pressure however is noted to be somewhat on the low side. We did reduce the dose of his lisinopril and he says that he is doing much better. Intake Vital Signs 06/10/24 11:06 10/31/24 09:40 Height 5 ft 7 in 5 ft 7 in Weight: 179 lb 8 oz 180 lb BMI 28.0 28.1 BP 115/70 105/72 Blood Pressure Location Rt brachial Lt brachial Position Sitting Sitting Respiration 16 16 Pulse 48 L 48 L Pulse Source Monitor Monitor Temp 97.9 F 96.9 F L Temperature Source Temporal Artery Temporal Artery Pulse Oximetry (%) 98 96 Oxygen Delivery Method room air room air Intake Visit Reasons: 6 M Line Server Required: No Accompanied by: Allergies No Known Allergies Allergy (Verified 10/31/24 09:41) Medications ???Medication ???Instructions ???Recorded ???Confirmed ???Type aspirin 81 mg tablet,delayed 81 mg PO DAILY@0800 heart health 0 12/03/15 06/10/24 History release pen needle, diabetic 32 gauge x #100 ea 12/07/23 06/10/24 Rx 08/18 blood-glucose meter,continuous #1 ea 12/20/23 06/10/24 Rx (FreeStyle [place] [address] [place]) blood-glucose sensor (FreeStyle #1 ea 12/20/23 06/10/24 Rx Hussain 3 Sensor device) atorvastatin 40 mg tablet 40 mg PO QHS #90 tabs 02/25/24 Rx nitroglycerin 0.4 mg sublingual 0.4 mg sublingual Q5M PRN Chest 06/10/24 Rx tablet Pain #25 tabs dapagliflozin propanediol 10 mg 10 mg PO QAM #90 tabs 10/03/24 10/ 29/24 Rx tablet (Farxiga) lisinopril 2.5 mg tablet 2.5 mg PO DAILY #90 tabs 05/15/24 06/10/24 Rx spironolactone 25 mg tablet 12.5 mg (1/2 x 25 mg) PO DAILY #90 05/15/24 06/10/24 Rx tabs metoprolol tartrate 25 mg tablet 25 mg PO BID #180 tabs 10/31/24 Rx omeprazole 20 mg tablet,delayed 20 mg PO DAILY #90 tabs 10/31/24 0 10/31/24 Rx release Have you fallen in the past year?: No PFSH Medical History Heart failure (12/03/15) Low back pain Cancer (12/02/21) Hyperkalemia Weakness Leg pain, bilateral Restless leg Anemia Diarrhea Hypokalemia Drug induced neutropenia CINV (chemotherapy-induced nausea and vomiting) Dehydration Encounter for chemotherapy management Hiccups Encounter for education Wears dentures Bradycardia Cardiology follow-up encounter History of stress test History of echocardiogram Cancer of lower lobe of right lung Kidney stones Former smoker Preoperative cardiovascular examination Essential hypertension Old myocardial infarction Non-ST elevated myocardial infarction (non-STEMI) ( 11/2015) Chronic systolic congestive heart failure Atherosclerotic heart disease of [place] coronary artery without angina pectoris Hyperlipidemia Ischemic cardiomyopathy Presence of stent in coronary artery ( 11/30/15) Tobacco use Surgical History History of colonoscopy (04/13/11) History of bronchoscopy Status post lobectomy of lung S/P right rotator cuff repair History of coronary artery stent placement Presence of coronary angioplasty implant and graft ( 11/30/15) Family History Grandfather CAD (coronary artery disease) Brother Cancer Social History Smoking Status: Former smoker quit date: 12/05/21 Tobacco: How many years used: 45 how long ago did patient quit smoking: smoked 0.5mobf56 years, more when he was working (more content not included)... Normal [facility] Bilirubin directOrdered By: Aileen Gibson on 06-10-2024 Bilirubin.direct [Mass/Vol] 0.19 mg/dL 0.00-0.30 [facility] Cholesterol measurementOrder ed By: Maribeth Early on 06-10-2024 Cholesterol [Mass/Vol] 118 mg/dL <200 [facility] Comment on above: <200 mg/dL Desirable 200-240 mg/dL Borderline >240 mg/dL High Risk High density lipoprotein (HD L) measurementOrdered By: Maribeth Early on 06-10-2024 Cholesterol in HDL [Mass/Vol] 41 mg/dL >40 [facility] Comment on above: The drugs N-Acetylcy steine and Metamizole may falsely depress this assay. Reference Range HDL <40 mg/dL Low HDL Cholesterol HDL >or= 60 mg/dL High HDL Cholesterol Low density lipoprotein (LDL ) cholesterol measurementOrdered By: Maribeth Early on 06-10-2024 Cholesterol in LDL [Mass/Vol] 59 mg/dL 0-130 [facility] Triglycerides measurementOrd ered By: Maribeth Early on 06-10-2024 Triglyceride [Mass/Vol] 88 mg/dL <199 [facility] Comment on above: The drugs N-Acetylcy steine and Metamizole may falsely depress this assay.Serum Triglycerides Reference Interval Normal <150 mg/dL Borderline high 150 - 199 mg/dL High 200 - 499 mg/dL Very High > or = 500 mg/dL Very low density lipoprotein (VLDL) cholesterol measurementOrdered By: Maribeth Early on 06-10-2024 Very low density lipoprotein (VLDL) cholesterol measurement 18 mg/dL 5-40 [facility] Basophil percentageOrdered B y: Connie Sun on 12-17-2023 Bilirubin [Mass/Vol] 0.50 mg/dL 0.20-1.00 [facility] Comment on above: For patients on eltr ombopag therapy, use of Dimension [place] TBIL is not recommended. Chloride [Moles/Vol] 105 mmol/L 98-107 [facility] Glucose [Mass/Vol] 124 mg/dL 74-106 [facility] Comment on above: Fasting Glucose resu lt from 100 to 125 mg/dL suggests IMPAIRED HOMEOSTASIS per A.D.A. criteria. Potassium [Moles/Vol] 4.3 mmol/L 3.5-5.1 [facility] Protein [Mass/Vol] 8.1 g/dL 6.4-8.2 [facility] Sodium [Moles/Vol] 135 mmol/L 136-145 [facility] Basophil percentageOrdered B y: Maribeth Early on 12-17-2023 Cholesterol [Mass/Vol] 108 mg/dL <200 [facility] Comment on above: <200 mg/dL Desirable 200-240 mg/dL Borderline >240 mg/dL High Risk Triglyceride [Mass/Vol] 109 mg/dL <199 [facility] Comment on above: The drugs N-Acetylcy steine and Metamizole may falsely depress this assay.Serum Triglycerides Reference Interval Normal <150 mg/dL Borderline high 150 - 199 mg/dL High 200 - 499 mg/dL Very High > or = 500 mg/dL Laboratory - Chemistry and C hemistry - challengeOrdered By: Connie Sun on 12-17-2023 Albumin/Globulin [Mass ratio] 0.8 {ratio} 0.9-2.4 [facility] ALP [Catalytic activity/Vol] 128 U/L 45-117 [facility] ALT [Catalytic activity/Vol] 68 U/L 16-61 [facility] CO2 [Moles/Vol] 24.0 mmol/L 21.0-32.0 [facility] Globulin (S) [Mass/Vol] 4.4 g/dL 2.2-4.2 [facility] Magnesium [Mass/Vol] 1.9 mg/dL 1.6-2.6 [facility] Urea nitrogen/Creatinine [Mass ratio] 21.6 mg/mg 10-20 [facility] Laboratory - Chemistry and C hemistry - challengeOrdered By: Maribeth Early on 12-17-2023 Cholesterol in HDL [Mass/Vol] 37 mg/dL >40 [facility] Comment on above: The drugs N-Acetylcy steine and Metamizole may falsely depress this assay. Reference Range HDL <40 mg/dL Low HDL Cholesterol HDL >or= 60 mg/dL High HDL Cholesterol Cholesterol in LDL [Mass/Vol] 49 mg/dL 0-130 [facility] No Panel InformationOrdered By: Connie Sun on 12-17-2023 C-Peptide 3.6 ng/mL 1.1-4.4 [facility] Comment on above: C-Peptide reference interval is for fasting patients. Estimated GFR (MDRD) Amer 94 mL/min >60 [facility] Comment on above: GFR Calc Estimated GFR (MDRD) Non-Af Amer 78 mL/min >60 [facility] Comment on above: Non- GFR Calc Vitamin D 25-Hydroxy 35.6 ng/mL [facility] Comment on above: Vitamin D 25(OH) Sta tus Range Deficiency <20 ng/mL (50nmol/L) Insufficiency 20 - 30 ng/mL (50 - 75 nmol/L) Sufficiency 30 - 100 ng/mL (75 - 250 nmol/L) Toxicity >100 ng/mL (>250 nmol/L) No Panel InformationOrdered By: Maribeth Early on 12-17-2023 VLDL Cholesterol 22 mg/dL 5-40 [facility] Serum or plasma calcium rufus urement (mass/volume)Ordered By: Connie Sun on 12-17-2023 Calcium [Mass/Vol] 9.3 mg/dL 8.5-10.1 [facility] Serum or plasma creatinine m easurement (mass/volume)Ordered By: Connie Sun on 12-17-2023 Creatinine [Mass/Vol] 1.02 mg/dL 0.70-1.30 [facility] Comment on above: The validity of the calculated GFR & GFRAA in patients over 70 years has not been determined. Clinical correlation is essential. Serum or plasma insulin rufus urement (mass/volume)Ordered By: Connie Sun on 12-17-2023 Insulin [Mass/Vol] 17.4 uIU/mL 2.6-24.9 [facility] Comment on above: Performed at: [address] [id number] Director: Jorge L Tripp PhD, Phone: [phone] Serum or plasma thyroid stim ulating hormone (TSH) measurement (units/volume)Ordered By: Connie Sun on 12-17-2023 TSH Qn 2.62 uIU/mL 0.358-3.74 [facility] Serum or plasma urea nitroge n measurement (mass/volume)Ordered By: Connie Sun on 12-17-2023 Urea nitrogen [Mass/Vol] 22 mg/dL 7-18 [facility] Thin prep Papanicolaou smear with manual screeningOrdered By: Connie Sun on 12-17-2023 Thin prep Papanicolaou smear with manual screening 3.7 g/dL 3.2-5.0 [facility] Thin prep Papanicolaou smear with manual screening 52 U/L 15-37 [facility] Thin prep Papanicolaou smear with manual screening 6 5-15 [facility] [facility] Basophil percentageOrdered B y: Olaf Salter on 12-07-2023 Chloride [Moles/Vol] 108 mmol/L 98-107 [facility] Glucose [Mass/Vol] 168 mg/dL 74-106 [facility] Comment on above: Fasting Glucose resu lt greater than or equal to 126 mg/dL suggests DIABETES MELLITUS per A.D.A. criteria. Hemoglobin (Bld) [Mass/Vol] 13.4 g/dL 13.0-16.5 [facility] Potassium [Moles/Vol] 4.2 mmol/L 3.5-5.1 [facility] Comment on above: Slight Hemolysis, Re sult may be falsely increased. Sodium [Moles/Vol] 138 mmol/L 136-145 [facility] WBC (Bld) [#/Vol] 9.2 10*3/uL 4.4-11.0 [facility] Determination of erythrocyte mean corpuscular volume (MCV)Ordered By: Olaf Salter on 12-07-2023 MCV (RBC) [Entitic vol] 94.3 fL 80-94 [facility] Erythrocyte distribution wid th ratioOrdered By: Olaf Salter on 12-07-2023 Erythrocyte distribution width (RBC) [Ratio] 12.8 % 11.6-14.6 [facility] Erythrocyte distribution wid th standard deviationOrdered By: Olaf Salter on 12-07-2023 Erythrocyte distribution width (RBC) [Entitic vol] 44.3 fL 35.1-43.9 [facility] Hematocrit Auto (Bld) [Volum e fraction]Ordered By: Olaf Salter on 12-07-2023 Hematocrit (Bld) [Volume fraction] 39.4 % 40-54 [facility] Laboratory - Chemistry and C hemistry - challengeOrdered By: Olaf Salter on 12-07-2023 CO2 [Moles/Vol] 23.0 mmol/L 21.0-32.0 [facility] Urea nitrogen/Creatinine [Mass ratio] 23.1 mg/mg 10-20 [facility] Laboratory - Hematology and Cell countsOrdered By: Olaf Salter on 12-07-2023 MCH (RBC) [Entitic mass] 32.1 pg 27.0-32.0 [facility] MCHC (RBC) [Mass/Vol] 34.0 g/dL 32-36 [facility] Platelet mean volume (Bld) [Entitic vol] 12.0 fL 6.2-12.0 [facility] Platelets (Bld) [#/Vol] 196 10*3/uL 150-450 [facility] No Panel InformationOrdered By: Olaf Salter on 12-07-2023 Estimated Creatinine Clearance Calc 66.21 ml/min [facility] Estimated GFR (MDRD) Amer 92 mL/min >60 [facility] Comment on above: GFR Calc Estimated GFR (MDRD) Non-Af Amer 76 mL/min >60 [facility] Comment on above: Non- GFR Calc RBC Auto (Bld) [#/Vol]Ordere d By: Olaf Salter on 12-07-2023 RBC (Bld) [#/Vol] 4.18 10*6/uL 4.6-6.2 [facility] Serum or plasma calcium rufus urement (mass/volume)Ordered By: Olaf Salter on 12-07-2023 Calcium [Mass/Vol] 8.6 mg/dL 8.5-10.1 [facility] Serum or plasma creatinine m easurement (mass/volume)Ordered By: Olaf Salter on 12-07-2023 Creatinine [Mass/Vol] 1.04 mg/dL 0.70-1.30 [facility] Comment on above: The validity of the calculated GFR & GFRAA in patients over 70 years has not been determined. Clinical correlation is essential. Serum or plasma urea nitroge n measurement (mass/volume)Ordered By: Olaf Salter on 12-07-2023 Urea nitrogen [Mass/Vol] 24 mg/dL 7-18 [facility] Thin prep Papanicolaou smear with manual screeningOrdered By: Jonatan Keller on 12-07-2023 Thin prep Papanicolaou smear with manual screening 151 mg/dL 74-106 [facility] Comment on above: MANAGEMENT OF PATIEN T CARE PER NURSING PROTOCOL Thin prep Papanicolaou smear with manual screeningOrdered By: Olaf Salter on 12-07-2023 Thin prep Papanicolaou smear with manual screening 7 5-15 [facility] Absolute lymphocyte countOrd ered By: Aileen Gibson on 12-06-2023 Lymphocytes Auto (Unsp spec) [#/Vol] 1.76 10*3/uL 0.83-4.51 [facility] Automated lymphocyte count a s percentage of total leukocytesOrdered By: Aileen Gibson on 12-06-2023 Lymphocytes/100 WBC Auto (Unsp spec) 15.0 % 19-41 [facility] Basophil percentageOrdered B y: Natty Bowling on 12-06-2023 Chloride [Moles/Vol] 86 mmol/L 98-107 [facility] Glucose [Mass/Vol] 776 mg/dL 74-106 [facility] Comment on above: Critical Result(s) C alled at: 18:38:34 12/06/2023 by: KATARINA CID. Results read back by same.Glucose result greater than or equal to 200 mg/dLsuggests DIABETES MELLITUS per A.D.A. criteria. Potassium [Moles/Vol] 6.6 mmol/L 3.5-5.1 [facility] Comment on above: Critical Result(s) C alled at: 18:38:34 12/06/2023 by: KATARINA CID. Results read back by same. Sodium [Moles/Vol] 118 mmol/L 136-145 [facility] Comment on above: Critical Result(s) C alled at: 18:38:34 12/06/2023 by: KATARINA CID. Results read back by same. Basophil percentageOrdered B y: Aileen Gibson on 12-06-2023 Basophils/100 WBC (Bld) 0.4 % 0-1 [facility] Bilirubin [Mass/Vol] 1.00 mg/dL 0.20-1.00 [facility] Comment on above: For patients on eltr ombopag therapy, use of Dimension [place] TBIL is not recommended. Chloride [Moles/Vol] 82 mmol/L 98-107 [facility] Eosinophils/100 WBC (Bld) 0.3 % 0-5 [facility] Glucose [Mass/Vol] 945 mg/dL 74-106 [facility] Comment on above: Critical Result(s) C alled at: 12:56:11 12/06/2023 by: Ansley Yee to [facility]. Results read back by same.Glucose result greater than or equal to 200 mg/dLsuggests DIABETES MELLITUS per A.D.A. criteria. Hemoglobin (Bld) [Mass/Vol] 15.8 g/dL 13.0-16.5 [facility] Monocytes/100 WBC (Bld) 7.1 % 0-10 [facility] Neutrophils (Bld) [#/Vol] 9.0 10*3/uL 2.0-7.7 [facility] Neutrophils/100 WBC (Bld) 76.7 % 47-70 [facility] Potassium [Moles/Vol] 5.8 mmol/L 3.5-5.1 [facility] Protein [Mass/Vol] 8.9 g/dL 6.4-8.2 [facility] Sodium [Moles/Vol] 119 mmol/L 136-145 [facility] Comment on above: Critical Result(s) C alled at: 12:56:11 12/06/2023 by: Ansley Yee to [facility]. Results read back by same. WBC (Bld) [#/Vol] 11.8 10*3/uL 4.4-11.0 [facility] Determination of erythrocyte mean corpuscular volume (MCV)Ordered By: Aileen Gibson on 12-06-2023 MCV (RBC) [Entitic vol] 96.3 fL 80-94 [facility] Direct serum free thyroxine (FT4) measurementOrdered By: Aileen Gibson on 12-06-2023 Free T4 [Mass/Vol] 1.06 ng/dL 0.76-1.46 [facility] Erythrocyte distribution wid th ratioOrdered By: Aileen Gibson on 12-06-2023 Erythrocyte distribution width (RBC) [Ratio] 13.0 % 11.6-14.6 [facility] Erythrocyte distribution wid th standard deviationOrdered By: [facility] on 12-06-2023 Erythrocyte distribution width (RBC) [Entitic vol] 45.3 fL 35.1-43.9 [facility] Hematocrit Auto (Bld) [Volum e fraction]Ordered By: Aileen Gibson on 12-06-2023 Hematocrit (Bld) [Volume fraction] 47.2 % 40-54 [facility] Immature granulocytes/100 WB C Auto (Bld)Ordered By: [facility] Arthur on 12-06-2023 Immature granulocytes/100 WBC (Bld) 0.500 % 0.0-0.9 [facility] Comment on above: IG% - Immature Granu locytes (promyelocytes, myelocytes and metamyelocytes) > 1% indicates that a LEFT SHIFT is Present. Laboratory - Chemistry and C hemistry - challengeOrdered By: Natty Bowling on 12-06-2023 CO2 [Moles/Vol] 22.0 mmol/L 21.0-32.0 [facility] Urea nitrogen/Creatinine [Mass ratio] 23.5 mg/mg 06-01 [facility] Laboratory - Chemistry and C hemistry - challengeOrdered By: [facility] on 12-06-2023 Albumin/Globulin [Mass ratio] 0.8 {ratio} 0.9-2.4 [facility] ALP [Catalytic activity/Vol] 179 U/L 45-117 [facility] ALT [Catalytic activity/Vol] 42 U/L 16-61 [facility] CO2 [Moles/Vol] 26.0 mmol/L 21.0-32.0 [facility] Globulin (S) [Mass/Vol] 4.9 g/dL 2.2-4.2 [facility] Urea nitrogen/Creatinine [Mass ratio] 17.6 mg/mg 06-01 [facility] Laboratory - Hematology and Cell countsOrdered By: [facility] on 12-06-2023 MCH (RBC) [Entitic mass] 32.2 pg 27.0-32.0 [facility] MCHC (RBC) [Mass/Vol] 33.5 g/dL 32-36 [facility] Nucleated RBC/100 WBC (Bld) [Ratio] 0 % 0-5 [facility] Platelet mean volume (Bld) [Entitic vol] 12.2 fL 6.2-12.0 [facility] Platelets (Bld) [#/Vol] 231 10*3/uL 150-450 [facility] No Panel InformationOrdered By: Natty Bowling on 12-06-2023 Estimated Creatinine Clearance Calc 38.47 ml/min [facility] Estimated GFR (MDRD) Amer 49 mL/min >60 [facility] Comment on above: GFR Calc Estimated GFR (MDRD) Non-Af Amer 41 mL/min >60 [facility] Comment on above: Non- GFR Calc No Panel InformationOrdered By: Aileen Gibson on 12-06-2023 Estimated Creatinine Clearance Calc 31.16 ml/min [facility] Estimated GFR (MDRD) Amer 39 mL/min >60 [facility] Comment on above: GFR Calc Estimated GFR (MDRD) Non-Af Amer 32 mL/min >60 [facility] Comment on above: Non- GFR Calc RBC Auto (Bld) [#/Vol]Ordere d By: Aileen Gibson on 12-06-2023 RBC (Bld) [#/Vol] 4.90 10*6/uL 4.6-6.2 [facility] Serum or plasma calcium rufus urement (mass/volume)Ordered By: Natty Bowling on 12-06-2023 Calcium [Mass/Vol] 10.2 mg/dL 8.5-10.1 [facility] Serum or plasma calcium rufus urement (mass/volume)Ordered By: Aileen Gibson on 12-06-2023 Calcium [Mass/Vol] 9.7 mg/dL 8.5-10.1 [facility] Serum or plasma creatinine m easurement (mass/volume)Ordered By: Natty Bowling on 12-06-2023 Creatinine [Mass/Vol] 1.79 mg/dL 0.70-1.30 [facility] Comment on above: The validity of the calculated GFR & GFRAA in patients over 70 years has not been determined. Clinical correlation is essential. Serum or plasma creatinine m easurement (mass/volume)Ordered By: Aileen Gibson on 12-06-2023 Creatinine [Mass/Vol] 2.21 mg/dL 0.70-1.30 [facility] Comment on above: The validity of the calculated GFR & GFRAA in patients over 70 years has not been determined. Clinical correlation is essential. Serum or plasma thyroid stim ulating hormone (TSH) measurement (units/volume)Ordered By: Aileen Gibson on 12-06-2023 TSH Qn 1.59 uIU/mL 0.358-3.74 [facility] Serum or plasma urea nitroge n measurement (mass/volume)Ordered By: Natty Bowling on 12-06-2023 Urea nitrogen [Mass/Vol] 42 mg/dL 02-27 [facility] Serum or plasma urea nitroge n measurement (mass/volume)Ordered By: Aileen Gibson on 12-06-2023 Urea nitrogen [Mass/Vol] 39 mg/dL 02-27 [facility] Thin prep Papanicolaou smear with manual screeningOrdered By: Natty Bowling on 12-06-2023 Thin prep Papanicolaou smear with manual screening 451 mg/dL 74-106 [facility] Comment on above: MANAGEMENT OF PATIEN T CARE PER NURSING PROTOCOL Thin prep Papanicolaou smear with manual screening 10 - [facility] Thin prep Papanicolaou smear with manual screeningOrdered By: Aileen Gibson on 12-06-2023 Thin prep Papanicolaou smear with manual screening 4.0 g/dL 3.2-5.0 [facility] Thin prep Papanicolaou smear with manual screening 25 U/L 15-37 [facility] Thin prep Papanicolaou smear with manual screening 11 5-15 [facility] Thin prep Papanicolaou smear with manual screening 1.06 ng/dL 0.76-1.46 [facility] Whole blood hemoglobin A1c/t otal hemoglobin ratio (mass fraction)Ordered By: Natty Bowling on 12-06-2023 HbA1c (Bld) [Mass fraction] 12.1 % 3.8-5.6 [facility] Comment on above: Normal < 5.7 % Predi abetic 5.7 - 6.4 % Diabetic >or= 6.5 % Please note range changes. Absolute lymphocyte countOrd ered By: Aileen Gibson on 09-04-2023 Lymphocytes Auto (Unsp spec) [#/Vol] 2.91 10*3/uL 0.83-4.51 [facility] Automated lymphocyte count a s percentage of total leukocytesOrdered By: Aileen Gibson on 09-04-2023 Lymphocytes/100 WBC Auto (Unsp spec) 33.3 % 19-41 [facility] Basophil percentageOrdered B y: Aileen Gibson on 09-04-2023 Basophils/100 WBC (Bld) 0.8 % 0-1 [facility] Bilirubin [Mass/Vol] 0.90 mg/dL 0.20-1.00 [facility] Comment on above: For patients on eltr ombopag therapy, use of Dim[employer] [place] TBIL is not recommended. Chloride [Moles/Vol] 104 mmol/L 98-107 [facility] Eosinophils/100 WBC (Bld) 1.8 % 0-5 [facility] Glucose [Mass/Vol] 154 mg/dL 74-106 [facility] Comment on above: Fasting Glucose resu lt greater than or equal to 126 mg/dL suggests DIABETES MELLITUS per A.D.A. criteria. Hemoglobin (Bld) [Mass/Vol] 15.7 g/dL 13.0-16.5 [facility] Monocytes/100 WBC (Bld) 10.5 % 0-10 [facility] Neutrophils (Bld) [#/Vol] 4.6 10*3/uL 2.0-7.7 [facility] Neutrophils/100 WBC (Bld) 52.8 % 47-70 [facility] Potassium [Moles/Vol] 4.1 mmol/L 3.5-5.1 [facility] Protein [Mass/Vol] 8.1 g/dL 6.4-8.2 [facility] Sodium [Moles/Vol] 135 mmol/L 136-145 [facility] WBC (Bld) [#/Vol] 8.7 10*3/uL 4.4-11.0 [facility] Determination of erythrocyte mean corpuscular volume (MCV)Ordered By: Aileen Gibson on 09-04-2023 MCV (RBC) [Entitic vol] 97.3 fL 80-94 [facility] Erythrocyte distribution wid th ratioOrdered By: [facility] on 09-04-2023 Erythrocyte distribution width (RBC) [Ratio] 13.2 % 11.6-14.6 [facility] Erythrocyte distribution wid th standard deviationOrdered By: [facility] Erythrocyte distribution width (RBC) [Entitic vol] 47.0 fL 35.1-43.9 [facility] Hematocrit Auto (Bld) [Volum e fraction]Ordered By: [facility] on 09-04-2023 Hematocrit (Bld) [Volume fraction] 47.3 % 40-54 [facility] Immature granulocytes/100 WB C Auto (Bld)[facility] Immature granulocytes/100 WBC (Bld) 0.800 % 0.0-0.9 [facility] Comment on above: IG% - Immature Granu locytes (promyelocytes, myelocytes and metamyelocytes) > 1% indicates that a LEFT SHIFT is Present. Laboratory - Chemistry and C hemistry - challengeOrdered By: [facility] on 09-04-2023 Albumin/Globulin [Mass ratio] 0.8 {ratio} 0.9-2.4 [facility] ALP [Catalytic activity/Vol] 143 U/L 45-117 [facility] ALT [Catalytic activity/Vol] 55 U/L 16-61 [facility] CO2 [Moles/Vol] 26.0 mmol/L 21.0-32.0 [facility] Globulin (S) [Mass/Vol] 4.4 g/dL 2.2-4.2 [facility] Urea nitrogen/Creatinine [Mass ratio] 14.7 mg/mg 10-20 [facility] Laboratory - Chemistry and C hemistry - challengeOrdered By: Connie Sun on 09-04-2023 Prostate specific Ag IA [Mass/Vol] 1.80 ng/mL 0.00-4.00 [facility] Comment on above: This test was perfor med using the TPSA assay method [facility]. Values obtained with differentassay methods cannot be used interchangably.When changing PSA assays in the course of monitoring apatient, additional sequential testing should be carriedout to confirm baseline values. Laboratory - Hematology and Cell countsOrdered By: Aileen Gibson on 09-04-2023 MCH (RBC) [Entitic mass] 32.3 pg 27.0-32.0 [facility] MCHC (RBC) [Mass/Vol] 33.2 g/dL 32-36 [facility] Nucleated RBC/100 WBC (Bld) [Ratio] 0 % 0-5 [facility] Platelets (Bld) [#/Vol] 270 10*3/uL 150-450 [facility] No Panel InformationOrdered By: Aileen Gibson on 09-04-2023 Estimated Creatinine Clearance Calc 70.50 ml/min [facility] Estimated GFR (MDRD) Amer 87 mL/min >60 [facility] Comment on above: GFR Calc Estimated GFR (MDRD) Non-Af Amer 72 mL/min >60 [facility] Comment on above: Non- GFR Calc Platelet mean volume Giorgio-Ec ker (Bld) [Entitic vol]Ordered By: Aileen Gibson on 09-04-2023 Platelet mean volume (Bld) [Entitic vol] 10.5 fL 6.2-12.0 [facility] RBC Auto (Bld) [#/Vol]Ordere d By: Aileen Gibson on 09-04-2023 RBC (Bld) [#/Vol] 4.86 10*6/uL 4.6-6.2 [facility] Serum or plasma calcium rufus urement (mass/volume)Ordered By: Aileen Gibson on 09-04-2023 Calcium [Mass/Vol] 9.6 mg/dL 8.5-10.1 [facility] Serum or plasma creatinine m easurement (mass/volume)Ordered By: Aileen Gibson on 09-04-2023 Creatinine [Mass/Vol] 1.09 mg/dL 0.70-1.30 [facility] Comment on above: The validity of the calculated GFR & GFRAA in patients over 70 years has not been determined. Clinical correlation is essential. Serum or plasma urea nitroge n measurement (mass/volume)Ordered By: Aileen Gibson on 09-04-2023 Urea nitrogen [Mass/Vol] 16 mg/dL 7-18 [facility] Thin prep Papanicolaou smear with manual screeningOrdered By: Aileen Gibson on 09-04-2023 Thin prep Papanicolaou smear with manual screening 3.7 g/dL 3.2-5.0 [facility] Thin prep Papanicolaou smear with manual screening 37 U/L 15-37 [facility] Thin prep Papanicolaou smear with manual screening 5 5-15 [facility] Basophil percentageOrdered B y: Aileen Gibson on 08-22-2023 Basophil percentage < 1.0 mg/dL 0.70-1.30 [facility] No Panel InformationOrdered By: Aileen Gibson on 08-22-2023 Bedside Estimated GFR (eGFR) > 60.0000 mL/min >60 [facility] Absolute lymphocyte countOrd ered By: Aileen Gibson on 01-24-2023 Lymphocytes Auto (Unsp spec) [#/Vol] 2.22 10*3/uL 0.83-4.51 [facility] Basophil percentageOrdered B y: Aileen Gibson on 01-24-2023 Basophils/100 WBC (Bld) 0.4 % 0-1 [facility] Bilirubin [Mass/Vol] 0.60 mg/dL 0.20-1.00 [facility] Comment on above: For patients on eltr ombopag therapy, use of [employer] [place] TBIL is not recommended. Chloride [Moles/Vol] 107 mmol/L 98-107 [facility] Eosinophils/100 WBC (Bld) 1.3 % 0-5 [facility] Glucose [Mass/Vol] 130 mg/dL 74-106 [facility] Comment on above: Fasting Glucose resu lt greater than or equal to 126 mg/dL suggests DIABETES MELLITUS per A.D.A. criteria. Neutrophils (Bld) [#/Vol] 6.0 10*3/uL 2.0-7.7 [facility] Neutrophils/100 WBC (Bld) 64.4 % 47-70 [facility] Potassium [Moles/Vol] 4.0 mmol/L 3.5-5.1 [facility] Protein [Mass/Vol] 7.7 g/dL 6.4-8.2 [facility] Sodium [Moles/Vol] 138 mmol/L 136-145 [facility] WBC (Bld) [#/Vol] 9.3 10*3/uL 4.4-11.0 [facility] Blood erythrocytes count (nu mber/volume)Ordered By: Aileen Gibson on 01-24-2023 RBC (Bld) [#/Vol] 4.50 10*6/uL 4.6-6.2 [facility] Blood hemoglobin measurement (mass/volume)Ordered By: Aileen Gibson on 01-24-2023 Hemoglobin (Bld) [Mass/Vol] 14.8 g/dL 13.0-16.5 [facility] Blood lymphocytes/100 leukoc ytesOrdered By: Aileen Gibson on 01-24-2023 Lymphocytes/100 WBC (Bld) 24.0 % 19-41 [facility] Blood monocytes/100 leukocyt esOrdered By: Aileen Gibson on 01-24-2023 Monocytes/100 WBC (Bld) 9.4 % 0-10 [facility] Blood platelet mean volumeOr dered By: Aileen Gibson on 01-24-2023 Platelet mean volume (Bld) [Entitic vol] 10.5 fL 6.2-12.0 [facility] Determination of erythrocyte mean corpuscular volume (MCV)Ordered By: Aileen Gibson on 01-24-2023 MCV (RBC) [Entitic vol] 99.1 fL 80-94 [facility] Hematocrit Auto (Bld) [Volum e fraction]Ordered By: Aileen Gibson on 01-24-2023 Hematocrit (Bld) [Volume fraction] 44.6 % 40-54 [facility] Laboratory - Chemistry and C hemistry - challengeOrdered By: Aileen Gibson on 01-24-2023 ALP [Catalytic activity/Vol] 172 U/L 45-117 [facility] ALT [Catalytic activity/Vol] 29 U/L 16-61 [facility] CO2 [Moles/Vol] 26.0 mmol/L 21.0-32.0 [facility] Globulin (S) [Mass/Vol] 4.2 g/dL 2.2-4.2 [facility] Urea nitrogen/Creatinine [Mass ratio] 15.0 mg/mg 10-20 [facility] Laboratory - Hematology and Cell countsOrdered By: Aileen Gibson on 01-24-2023 Erythrocyte distribution width (RBC) [Entitic vol] 47.8 fL 35.1-43.9 [facility] Erythrocyte distribution width (RBC) [Ratio] 13.1 % 11.6-14.6 [facility] Immature granulocytes/100 WBC (Bld) 0.500 % 0.0-0.9 [facility] Comment on above: IG% - Immature Granu locytes (promyelocytes, myelocytes and metamyelocytes) > 1% indicates that a LEFT SHIFT is Present. MCH (RBC) [Entitic mass] 32.9 pg 27.0-32.0 [facility] Nucleated RBC/100 WBC (Bld) [Ratio] 0 % 0-5 [facility] MCHC Auto (RBC) [Mass/Vol]Or dered By: Aileen Gibson on 01-24-2023 MCHC (RBC) [Mass/Vol] 33.2 g/dL 32-36 [facility] No Panel InformationOrdered By: Aileen Gibson on 01-24-2023 Estimated Creatinine Clearance Calc 68.85 ml/min [facility] Estimated GFR (MDRD) Amer 96 mL/min >60 [facility] Comment on above: GFR Calc Estimated GFR (MDRD) Non-Af Amer 80 mL/min >60 [facility] Comment on above: Non- GFR Calc Platelets bldOrdered By: Usman Gibson on 01-24-2023 Platelets (Bld) [#/Vol] 216 10*3/uL 150-450 [facility] Serum or plasma albumin rufus urement (mass/volume)Ordered By: Aileen Gibson on 01-24-2023 Albumin [Mass/Vol] 3.5 g/dL 3.2-5.0 [facility] Serum or plasma albumin/glob ulin mass ratioOrdered By: Aileen Gibson on 01-24-2023 Albumin/Globulin [Mass ratio] 0.8 {ratio} 0.9-2.4 [facility] Serum or plasma calcium rufus urement (mass/volume)Ordered By: Aileen Gibson on 01-24-2023 Calcium [Mass/Vol] 9.3 mg/dL 8.5-10.1 [facility] Serum or plasma creatinine m easurement (mass/volume)Ordered By: Aileen Gibson on 01-24-2023 Creatinine [Mass/Vol] 1.00 mg/dL 0.70-1.30 [facility] Comment on above: The validity of the calculated GFR & GFRAA in patients over 70 years has not been determined. Clinical correlation is essential. Serum or plasma urea nitroge n measurement (mass/volume)Ordered By: Aileen Gibson on 01-24-2023 Urea nitrogen [Mass/Vol] 15 mg/dL 7-18 [facility] Thin prep Papanicolaou smear with manual screeningOrdered By: Aileen Gibson on 01-24-2023 Thin prep Papanicolaou smear with manual screening 17 U/L 15-37 [facility] Thin prep Papanicolaou smear with manual screening 5 5-15 [facility] Basophil percentageOrdered B y: Aileen Gibson on 01-17-2023 Creatinine [Mass/Vol] 1.3 mg/dL 0.70-1.30 [facility] Laboratory - Chemistry and C hemistry - challengeOrdered By: Aileen Gibson on 01-17-2023 GFR/1.73 sq M.predicted among non-blacks MDRD (S/P/Bld) [Vol rate/Area] 60.0000 mL/min/{1.73_m2} >60 [facility] Absolute lymphocyte countOrd ered By: Dr. Gibson on 10-25-2022 Lymphocytes Auto (Unsp spec) [#/Vol] 2.82 10*3/uL 0.83-4.51 [facility] Basophil percentageOrdered B y: Dr. Gibson on 10-25-2022 Basophils/100 WBC (Bld) 0.5 % 0-1 [facility] Bilirubin [Mass/Vol] 0.50 mg/dL 0.20-1.00 [facility] Comment on above: For patients on eltr ombopag therapy, use of Dim[employer] [place] TBIL is not recommended. Chloride [Moles/Vol] 105 mmol/L 98-107 [facility] Eosinophils/100 WBC (Bld) 1.4 % 0-5 [facility] Glucose [Mass/Vol] 100 mg/dL 74-106 [facility] Comment on above: Fasting Glucose resu lt from 100 to 125 mg/dL suggests IMPAIRED HOMEOSTASIS per A.D.A. criteria. Neutrophils (Bld) [#/Vol] 4.3 10*3/uL 2.0-7.7 [facility] Neutrophils/100 WBC (Bld) 53.0 % 47-70 [facility] Potassium [Moles/Vol] 3.7 mmol/L 3.5-5.1 [facility] Protein [Mass/Vol] 7.9 g/dL 6.4-8.2 [facility] Sodium [Moles/Vol] 141 mmol/L 136-145 [facility] WBC (Bld) [#/Vol] 8.1 10*3/uL 4.4-11.0 [facility] Blood erythrocytes count (nu mber/volume)Ordered By: Dr. Gibson on 10-25-2022 RBC (Bld) [#/Vol] 4.37 10*6/uL 4.6-6.2 [facility] Blood hemoglobin measurement (mass/volume)Ordered By: Dr. Gibson on 10-25-2022 Hemoglobin (Bld) [Mass/Vol] 14.1 g/dL 13.0-16.5 [facility] Blood lymphocytes/100 leukoc ytesOrdered By: Dr. Gibson on 10-25-2022 Lymphocytes/100 WBC (Bld) 34.8 % 19-41 [facility] Blood monocytes/100 leukocyt esOrdered By: Dr. Gibson on 10-25-2022 Monocytes/100 WBC (Bld) 9.9 % 0-10 [facility] Blood platelet mean volumeOr dered By: Dr. Gibson on 10-25-2022 Platelet mean volume (Bld) [Entitic vol] 9.6 fL 6.2-12.0 [facility] Determination of erythrocyte mean corpuscular volume (MCV)Ordered By: Dr. Gibson on 10-25-2022 MCV (RBC) [Entitic vol] 97.5 fL 80-94 [facility] Hematocrit Auto (Bld) [Volum e fraction]Ordered By: Dr. Gibson on 10-25-2022 Hematocrit (Bld) [Volume fraction] 42.6 % 40-54 [facility] Laboratory - Chemistry and C hemistry - challengeOrdered By: Dr. Gibson on 10-25-2022 ALP [Catalytic activity/Vol] 151 U/L 45-117 [facility] ALT [Catalytic activity/Vol] 42 U/L 16-61 [facility] CO2 [Moles/Vol] 29.0 mmol/L 21.0-32.0 [facility] Globulin (S) [Mass/Vol] 4.3 g/dL 2.2-4.2 [facility] Urea nitrogen/Creatinine [Mass ratio] 12.9 mg/mg 10-20 [facility] Laboratory - Hematology and Cell countsOrdered By: Dr. Gibson on 10-25-2022 Erythrocyte distribution width (RBC) [Entitic vol] 50.5 fL 35.1-43.9 [facility] Erythrocyte distribution width (RBC) [Ratio] 14.1 % 11.6-14.6 [facility] Immature granulocytes/100 WBC (Bld) 0.400 % 0.0-0.9 [facility] Comment on above: IG% - Immature Granu locytes (promyelocytes, myelocytes and metamyelocytes) > 1% indicates that a LEFT SHIFT is Present. MCH (RBC) [Entitic mass] 32.3 pg 27.0-32.0 [facility] Nucleated RBC/100 WBC (Bld) [Ratio] 0 % 0-5 [facility] MCHC Auto (RBC) [Mass/Vol]Or dered By: Dr. Gibson on 10-25-2022 MCHC (RBC) [Mass/Vol] 33.1 g/dL 32-36 [facility] No Panel InformationOrdered By: Dr. Gibson on 10-25-2022 Estimated Creatinine Clearance Calc 75.02 ml/min [facility] Estimated GFR (MDRD) Amer 105 mL/min >60 [facility] Comment on above: GFR Calc Estimated GFR (MDRD) Non-Af Amer 87 mL/min >60 [facility] Comment on above: Non- GFR Calc Platelets bldOrdered By: Dr. Gibson on 10-25-2022 Platelets (Bld) [#/Vol] 235 10*3/uL 150-450 [facility] Serum or plasma albumin rufus urement (mass/volume)Ordered By: Dr. Gibson on 10-25-2022 Albumin [Mass/Vol] 3.6 g/dL 3.2-5.0 [facility] Serum or plasma albumin/glob ulin mass ratioOrdered By: Dr. Gibson on 10-25-2022 Albumin/Globulin [Mass ratio] 0.8 {ratio} 0.9-2.4 [facility] Serum or plasma calcium rufus urement (mass/volume)Ordered By: Dr. Gibson on 10-25-2022 Calcium [Mass/Vol] 9.3 mg/dL 8.5-10.1 [facility] Serum or plasma creatinine m easurement (mass/volume)Ordered By: Dr. Gibson on 10-25-2022 Creatinine [Mass/Vol] 0.93 mg/dL 0.70-1.30 [facility] Comment on above: The validity of the calculated GFR & GFRAA in patients over 70 years has not been determined. Clinical correlation is essential. Serum or plasma urea nitroge n measurement (mass/volume)Ordered By: Dr. Gibson on 10-25-2022 Urea nitrogen [Mass/Vol] 12 mg/dL 7-18 [facility] Thin prep Papanicolaou smear with manual screeningOrdered By: Dr. Gibson on 10-25-2022 Thin prep Papanicolaou smear with manual screening 25 U/L 15 [facility] Thin prep Papanicolaou smear with manual screening 7 -15 [facility] Progress Noteon 07-24-2022 Progress Note Lung cancer patient (right lower lobectomy) January [address] 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 Gibson, [facility]. [facility] Absolute lymphocyte counton 07-19-2022 Lymphocytes Auto (Unsp spec) [#/Vol] 2.99 10*3/uL 0.83-4.51 [facility] Work Phone: Basophil percentageon 2021 Basophil percentage < 0.9 mg/dL 0.70-1.30 [facility] Work Phone: Basophils/100 WBC (Bld) 0.5 % 0-1 [facility] Work Phone: Bilirubin [Mass/Vol] 0.30 mg/dL 0.20-1.00 [facility] Work Phone: Comment on above: For patients on eltr ombopag therapy, use of Dimension [place] TBIL is not recommended. Chloride [Moles/Vol] 107 mmol/L 98-107 [facility] Work Phone: Eosinophils/100 WBC (Bld) 1.7 % 0-5 [facility] Work Phone: Glucose [Mass/Vol] 99 mg/dL 74-106 [facility] Work Phone: Neutrophils (Bld) [#/Vol] 2.6 10*3/uL 2.0-7.7 [facility] Work Phone: Neutrophils/100 WBC (Bld) 40.5 % 47-70 [facility] Work Phone: Potassium [Moles/Vol] 3.8 mmol/L 3.5-5.1 [facility] Work Phone: Protein [Mass/Vol] 8.2 g/dL 6.4-8.2 [facility] Work Phone: Sodium [Moles/Vol] 137 mmol/L 136-145 [facility] Work Phone: WBC (Bld) [#/Vol] 6.5 10*3/uL 4.4-11.0 [facility] Work Phone: Basophil percentageOrdered B y: Dr. Gisbon on 07-19-2022 Basophil percentage 3.7 mg/dL 2.5-4.9 [facility] Basophil percentageOrdered B y: Lazarocamryn Olivas on 07-19-2022 Cholesterol [Mass/Vol] 202 mg/dL <200 [facility] Comment on above: <200 mg/dL Desirable 200-240 mg/dL Borderline >240 mg/dL High Risk Triglyceride [Mass/Vol] 130 mg/dL <199 [facility] Comment on above: The drugs N-Acetylcy steine and Metamizole may falsely depress this assay.Serum Triglycerides Reference Interval Normal <150 mg/dL Borderline high 150 - 199 mg/dL High 200 - 499 mg/dL Very High > or = 500 mg/dL Blood erythrocytes count (nu mber/volume)on 07-19-2022 RBC (Bld) [#/Vol] 3.56 10*6/uL 4.6-6.2 [facility] Work Phone: Blood hemoglobin measurement (mass/volume)on 07-19-2022 Hemoglobin (Bld) [Mass/Vol] 11.6 g/dL 13.0-16.5 [facility] Work Phone: Blood lymphocytes/100 leukoc yteson 07-19-2022 Lymphocytes/100 WBC (Bld) 45.9 % 19-41 [facility] Work Phone: Blood monocytes/100 leukocyt eson 07-19-2022 Monocytes/100 WBC (Bld) 11.1 % 0-10 [facility] Work Phone: Blood platelet mean volumeon 07-19-2022 Platelet mean volume (Bld) [Entitic vol] 9.3 fL 6.2-12.0 [facility] Work Phone: Cholesterol in LDL Direct as say [Mass/Vol]Ordered By: Lazaro Olivas on 07-19-2022 Cholesterol in LDL [Mass/Vol] 143 mg/dL High 0-99 [facility] Comment on above: Performed at: [address] [id number] Director: Jorge L Tripp PhD, Phone: [phone] Determination of erythrocyte mean corpuscular volume (MCV)on 07-19-2022 MCV (RBC) [Entitic vol] 100.6 fL 80-94 [facility] Work Phone: [phone] Hematocrit Auto (Bld) [Volum e fraction]on 07-19-2022 Hematocrit (Bld) [Volume fraction] 35.8 % 40-54 [facility] Work Phone: [phone] Iron measurement (mass/mass) Ordered By: Lazaro Olivas on 07-19-2022 Iron (Unsp spec) [Mass/Mass] 86 ug/dL 65-175 [facility] Laboratory - Chemistry and C hemistry - challengeon 07-19-2022 ALP [Catalytic activity/Vol] 115 U/L 45-117 [facility] Work Phone: [phone] ALT [Catalytic activity/Vol] 23 U/L 16-61 [facility] Work Phone: [phone] CO2 [Moles/Vol] 28.0 mmol/L 21.0-32.0 [facility] Work Phone: [phone] Globulin (S) [Mass/Vol] 4.7 g/dL 2.2-4.2 [facility] Work Phone: [phone] Urea nitrogen/Creatinine [Mass ratio] 21.4 mg/mg 10-20 [facility] Work Phone: [phone] Laboratory - Chemistry and C hemistry - challengeOrdered By: Dr. Gibson on 07-19-2022 Magnesium [Mass/Vol] 1.7 mg/dL 1.6-2.6 [facility] Laboratory - Hematology and Cell countson 07-19-2022 Erythrocyte distribution width (RBC) [Entitic vol] 54.7 fL 35.1-43.9 [facility] Work Phone: [phone] Erythrocyte distribution width (RBC) [Ratio] 14.6 % 11.6-14.6 [facility] Work Phone: [phone] Immature granulocytes/100 WBC (Bld) 0.300 % 0.0-0.9 [facility] Work Phone: [phone] Comment on above: IG% - Immature Granu locytes (promyelocytes, myelocytes and metamyelocytes) > 1% indicates that a LEFT SHIFT is Present. MCH (RBC) [Entitic mass] 32.6 pg 27.0-32.0 [facility] Work Phone: Nucleated RBC/100 WBC (Bld) [Ratio] 0 % 0-5 [facility] Work Phone: Laboratory - Miscellaneous t estsOrdered By: Lazaro Olivas on 07-19-2022 Service comment (Unsp spec) [Interp] TNP [facility] Comment on above: Test not performed MCHC Auto (RBC) [Mass/Vol]on 07-19-2022 MCHC (RBC) [Mass/Vol] 32.4 g/dL 32-36 [facility] Work Phone: No Panel Informationon 07-19 Bedside Estimated GFR (eGFR) > 60.0000 mL/min >60 [facility] Work Phone: Estimated Creatinine Clearance Calc 99.67 ml/min [facility] Work Phone: Estimated GFR (MDRD) Amer 146 mL/min >60 [facility] Work Phone: Comment on above: GFR Calc Estimated GFR (MDRD) Non-Af Amer 120 mL/min >60 [facility] Work Phone: Comment on above: Non- GFR Calc No Panel InformationOrdered By: Lazaro Olivas on 07-19-2022 Total Iron Binding Capacity 266 ug/dL 250-450 [facility] Platelets bldon 07-19-2022 Platelets (Bld) [#/Vol] 245 10*3/uL 150-450 [facility] Work Phone: [phone] PotassiumOrdered By: Aileen Gibson on 07-19-2022 Potassium [Mass/Vol] 3.7 mg/dL 2.5-4.9 [facility] Serum or plasma albumin rufus urement (mass/volume)on 07-19-2022 Albumin [Mass/Vol] 3.5 g/dL 3.2-5.0 [facility] Work Phone: Serum or plasma albumin/glob ulin mass ratioon 07-19-2022 Albumin/Globulin [Mass ratio] 0.7 {ratio} 0.9-2.4 [facility] Work Phone: Serum or plasma calcium rufus urement (mass/volume)on 07-19-2022 Calcium [Mass/Vol] 9.5 mg/dL 8.5-10.1 [facility] Work Phone: Serum or plasma cholesterol in HDL measurement (mass/volume)Ordered By: Lazaro Olivas on 07-19-2022 Cholesterol in HDL [Mass/Vol] 44 mg/dL >40 [facility] Comment on above: The drugs N-Acetylcy steine and Metamizole may falsely depress this assay. Reference Range HDL <40 mg/dL Low HDL Cholesterol HDL >or= 60 mg/dL High HDL Cholesterol Serum or plasma creatinine m easurement (mass/volume)on 07-19-2022 Creatinine [Mass/Vol] 0.70 mg/dL 0.70-1.30 [facility] Work Phone: Comment on above: The validity of the calculated GFR & GFRAA in patients over 70 years has not been determined. Clinical correlation is essential. Serum or plasma ferritin eva surement (mass/volume)Ordered By: Lazaro Olivas on 07-19-2022 Ferritin [Mass/Vol] 488 ng/mL High 26-388 [facility] Serum or plasma iron saturat ion measurement (mass fraction)Ordered By: Lazaro Olivas on 07-19-2022 Iron saturation [Mass fraction] 32.3 % 15.0-55.0 [facility] Serum or plasma urea nitroge n measurement (mass/volume)on 07-19-2022 Urea nitrogen [Mass/Vol] 15 mg/dL 7-18 [facility] Work Phone: Thin prep Papanicolaou smear with manual screeningon 07-19-2022 Thin prep Papanicolaou smear with manual screening 15 U/L 15-37 [facility] Work Phone: [phone] Thin prep Papanicolaou smear with manual screening 2 5-15 [facility] Work Phone: [phone] Absolute lymphocyte counton 05-30-2022 Lymphocytes Auto (Unsp spec) [#/Vol] 2.70 10*3/uL 0.83-4.51 [facility] Work Phone: Basophil percentageon 2021 Basophil percentage 3.7 mg/dL 2.5-4.9 [facility] Work Phone: Basophils/100 WBC (Bld) 0.7 % 0-1 [facility] Work Phone: Chloride [Moles/Vol] 102 mmol/L 98-107 [facility]: Eosinophils/100 WBC (Bld) 0.5 % 0-5 [facility] Work Phone: Glucose [Mass/Vol] 135 mg/dL 74-106 [facility] Work Phone: Comment on above: Fasting Glucose resu lt greater than or equal to 126 mg/dL suggests DIABETES MELLITUS per A.D.A. criteria. Neutrophils (Bld) [#/Vol] 9.0 10*3/uL 2.0-7.7 [facility] Work Phone: Neutrophils/100 WBC (Bld) 62.9 % 47-70 [facility] Work Phone: Potassium [Moles/Vol] 4.0 mmol/L 3.5-5.1 [facility] Work Phone: Sodium [Moles/Vol] 136 mmol/L 136-145 [facility] Work Phone: WBC (Bld) [#/Vol] 14.3 10*3/uL 4.4-11.0 [facility] Work Phone: Blood erythrocytes count (nu mber/volume)on 05-30-2022 RBC (Bld) [#/Vol] 3.20 10*6/uL 4.6-6.2 [facility] Work Phone: Blood hemoglobin measurement (mass/volume)on 05-30-2022 Hemoglobin (Bld) [Mass/Vol] 10.5 g/dL 13.0-16.5 [facility] Work Phone: Blood lymphocytes/100 leukoc yteson 05-30-2022 Lymphocytes/100 WBC (Bld) 18.8 % 19-41 [facility] Work Phone: [phone] Blood manual differential co mment interpretation (narrative result)on 05-30-2022 Manual differential comment Oscar (Bld) [Interp] COMMENT [facility] Work Phone: Comment on above: MONOCYTOSIS. Blood monocytes/100 leukocyt eson 05-30-2022 Monocytes/100 WBC (Bld) 13.2 % 0-10 [facility] Work Phone: Blood platelet mean volumeon 05-30-2022 Platelet mean volume (Bld) [Entitic vol] 10.3 fL 6.2-12.0 [facility] Work Phone: Determination of erythrocyte mean corpuscular volume (MCV)on 05-30-2022 MCV (RBC) [Entitic vol] 101.3 fL 80-94 [facility] Work Phone: Hematocrit Auto (Bld) [Volum e fraction]on 05-30-2022 Hematocrit (Bld) [Volume fraction] 32.4 % 40-54 [facility] Work Phone: Laboratory - Chemistry and C hemistry - challengeon 05-30-2022 CO2 [Moles/Vol] 25.0 mmol/L 21.0-32.0 [facility] Work Phone: [phone] Magnesium [Mass/Vol] 1.7 mg/dL 1.6-2.6 [facility] Work Phone: [phone] Urea nitrogen/Creatinine [Mass ratio] 15.4 mg/mg 10-20 [facility] Work Phone: [phone] Laboratory - Hematology and Cell countson 05-30-2022 Anisocytosis Ql (Bld) 1+ [facility] Work Phone: [phone] Erythrocyte distribution width (RBC) [Entitic vol] 66.9 fL 35.1-43.9 [facility] Work Phone: [phone] Erythrocyte distribution width (RBC) [Ratio] 18.6 % 11.6-14.6 [facility] Work Phone: Immature granulocytes/100 WBC (Bld) 3.900 % 0.0-0.9 [facility] Work Phone: Comment on above: IG% - Immature Granu locytes (promyelocytes, myelocytes and metamyelocytes) > 1% indicates that a LEFT SHIFT is Present. MCH (RBC) [Entitic mass] 32.8 pg 27.0-32.0 [facility] Work Phone: Nucleated RBC/100 WBC (Bld) [Ratio] 0.1 % 0-5 [facility] Work Phone: MCHC Auto (RBC) [Mass/Vol]on 05-30-2022 MCHC (RBC) [Mass/Vol] 32.4 g/dL 32-36 [facility] Work Phone: No Panel Informationon 05-30 Estimated GFR (MDRD) Amer 129 mL/min >60 [facility] Work Phone: Comment on above: GFR Calc Estimated GFR (MDRD) Non-Af Amer 106 mL/min >60 [facility] Work Phone: Comment on above: Non- GFR Calc Platelets bldon 05-30-2022 Platelets (Bld) [#/Vol] 206 10*3/uL 150-450 [facility] Work Phone: Review by pathologiston 05-13 Pathologist review Oscar (Unsp spec) [Interp] Reviewed [facility] Work Phone: Comment on above: Previous reported re sult: December foll Edited by: RGODULCE MARIA on 05/31/22:938Leukocytosis with Neutrophilic left shift. Macrocytic anemia.Clinical correlation necessary.Raul Davies M.D. 05/31/22 AMENDED REPORT 05/31/22 0939 PATH REV previously reported as: December foll Serum or plasma calcium rufus urement (mass/volume)on 05-30-2022 Calcium [Mass/Vol] 9.6 mg/dL 8.5-10.1 [facility] Work Phone: Serum or plasma creatinine m easurement (mass/volume)on 05-30-2022 Creatinine [Mass/Vol] 0.78 mg/dL 0.70-1.30 [facility] Work Phone: Comment on above: The validity of the calculated GFR & GFRAA in patients over 70 years has not been determined. Clinical correlation is essential. Serum or plasma urea nitroge n measurement (mass/volume)on 05-30-2022 Urea nitrogen [Mass/Vol] 12 mg/dL 02-27 [facility] Work Phone: Thin prep Papanicolaou smear with manual screeningon 05-30-2022 Thin prep Papanicolaou smear with manual screening 9 5-15 [facility] Work Phone: Blood platelet adequacy dete ction by light microscopyOrdered By: Dr. Gibson on 05-23-2022 Platelets LM Ql (Bld) ADEQUATE ADEQ [facility] RBC morphologyOrdered By: Dr Ivana Gibson on 05-23-2022 RBC morphology finding Nom (Bld) NORM C+C NORMAL NORM C&C [facility] Blood band neutrophil count as percentage of total leukocytesOrdered By: Dr. Gibson on 05-09-2022 Band form neutrophils/100 WBC (Bld) 2 % 0-5 [facility] Blood lymphocytes/100 leukoc ytesOrdered By: Dr. Gibson on 05-09-2022 Lymphocytes/100 WBC (Bld) 13 % Low 19-41 [facility] Blood metamyelocytes/100 immanuel kocytesOrdered By: Dr. Gibson on 05-09-2022 Metamyelocytes/100 WBC (Bld) 2 % High 0-1 [facility] Blood monocytes/100 leukocyt esOrdered By: Dr. Gibson on 05-09-2022 Monocytes/100 WBC (Bld) 2 % 0-10 [facility] Blood promyelocytes/100 leuk ocytesOrdered By: Dr. Gibson on 05-09-2022 Promyelocytes/100 WBC (Bld) 3 % High 0-0 [facility] Blood segmented neutrophils/ [address]: [address] Gibson on 05-09-2022 Segmented neutrophils/100 WBC (Bld) 80 % High 47-70 [facility] Laboratory - Hematology and Cell countsOrdered By: Dr. Gibson on 05-09-2022 Anisocytosis Ql (Bld) 2+ [facility] Myelocytes/100 WBC (Bld) 3 % High 0-0 [facility] Review by pathologistOrdered By: Dr. Gibson on 05-09-2022 Pathologist review Oscar (Unsp spec) [Interp] Reviewed [facility] Comment on above: Previous reported re sult: December emili Edited by: RGOOD on 05/10/22:1204Neutrophilic leukocytosis with left shift. Macrocytic anemia.Clinical correlation necessary.Raul Davies M.D. 05/10/22 AMENDED REPORT 05/10/22 1204 PATH REV previously reported as: Shobha mock Total cell countOrdered By: Dr. Gibson on 05-09-2022 Cells counted Molgen (Bld/Tiss) [#] 100 MANUAL DIFF [facility] Blood manual differential co mment interpretation (narrative result)Ordered By: Dr. Gibson on 05-04-2022 Manual differential comment Oscar (Bld) [Interp] SCANNED [facility] Comment on above: NEUTROPENIA NOTED No Panel InformationOrdered By: Dr. Gibson on 05-04-2022 Reactive Lymphocytes 1+ [facility] Absolute lymphocyte counton 04-11-2022 Lymphocytes Auto (Unsp spec) [#/Vol] 3.74 10*3/uL 0.83-4.51 [facility] Work Phone: Basophil percentageon 2021 Basophil percentage Not Reportable [facility] Work Phone: Bilirubin [Mass/Vol] 1.10 mg/dL 0.20-1.00 [facility] Work Phone: Comment on above: For patients on eltr ombopag therapy, use of Dimension [place] TBIL is not recommended. Chloride [Moles/Vol] 105 mmol/L 98-107 [facility] Work Phone: Glucose [Mass/Vol] 130 mg/dL 74-106 [facility] Work Phone: [phone] Comment on above: Fasting Glucose resu lt greater than or equal to 126 mg/dL suggests DIABETES MELLITUS per A.D.A. criteria. Neutrophils (Bld) [#/Vol] 26.5 10*3/uL 2.0-7.7 [facility] Work Phone: [phone] Potassium [Moles/Vol] 4.9 mmol/L 3.5-5.1 [facility] Work Phone: [phone] Protein [Mass/Vol] 6.0 g/dL 6.4-8.2 [facility] Work Phone: [phone]) Sodium [Moles/Vol] 136 mmol/L 136-145 [facility] Work Phone: [phone] WBC (Bld) [#/Vol] 31.2 10*3/uL 4.4-11.0 [facility] Work Phone: [phone] Comment on above: CRITICAL VALUE VERIF IED. CALLED TO Adrian RICHARDSON RN PCU04/11/22 0507 Akshat Arellano.RESULTS READ BACK BY SAME. Blood band neutrophil count as percentage of total leukocyteson 04-11-2022 Band form neutrophils/100 WBC (Bld) 2 % 0-5 [facility] Work Phone: [phone] Blood erythrocytes count (nu mber/volume)on 04-11-2022 RBC (Bld) [#/Vol] 3.48 10*6/uL 4.6-6.2 [facility] Work Phone: [phone] Blood hemoglobin measurement (mass/volume)on 04-11-2022 Hemoglobin (Bld) [Mass/Vol] 11.4 g/dL 13.0-16.5 [facility] Work Phone: [phone] Blood lymphocytes/100 leukoc yteson 04-11-2022 Lymphocytes/100 WBC (Bld) 12 % 19-41 [facility] Work Phone: [phone] Blood metamyelocytes/100 immanuel kocyteson 04-11-2022 Metamyelocytes/100 WBC (Bld) 2 % 0-1 [facility] Work Phone: Blood platelet adequacy dete ction by light microscopyon 04-11-2022 Platelets LM Ql (Bld) ADEQUATE ADEQ [facility] Work Phone: [phone] Blood platelet mean volumeon 04-11-2022 Platelet mean volume (Bld) [Entitic vol] 11.2 fL 6.2-12.0 [facility] Work Phone: [phone] Blood segmented neutrophils/ 100 leukocyteson 04-11-2022 Segmented neutrophils/100 WBC (Bld) 83 % 47-70 [facility] Work Phone: Determination of erythrocyte mean corpuscular volume (MCV)on 04-11-2022 MCV (RBC) [Entitic vol] 97.7 fL 80-94 [facility] Work Phone: Direct bilirubinon Bilirubin.direct [Mass/Vol] 0.24 mg/dL 0.00-0.30 [facility] Work Phone: Hematocrit Auto (Bld) [Volum e fraction]on 04-11-2022 Hematocrit (Bld) [Volume fraction] 34.0 % 40-54 [facility] Work Phone: INR in Blood by Coagulation assayon 04-11-2022 INR Coag (Bld) [Relative time] 1.1 {INR} [facility] Work Phone: [phone] Laboratory - Chemistry and C hemistry - challengeon 04-11-2022 ALP [Catalytic activity/Vol] 151 U/L 45-117 [facility] Work Phone: ALT [Catalytic activity/Vol] 26 U/L 16-61 [facility] Work Phone: [phone] CO2 [Moles/Vol] 27.0 mmol/L 21.0-32.0 [facility] Work Phone: [phone] Globulin (S) [Mass/Vol] 3.4 g/dL 2.2-4.2 [facility] Work Phone: Urea nitrogen/Creatinine [Mass ratio] 39.6 mg/mg 10-20 [facility] Work Phone: Laboratory - Coagulationon 0 04-11-2022 aPTT Coag (Bld) [Time] 23.5 s 24.1-36.2 [facility] Work Phone: PT Coag (PPP) [Time] 13.9 s 11.7-14.9 [facility] Work Phone: [phone] Laboratory - Hematology and Cell countson 04-11-2022 Erythrocyte distribution width (RBC) [Entitic vol] 49.5 fL 35.1-43.9 [facility] Work Phone: [phone] Erythrocyte distribution width (RBC) [Ratio] 14.0 % 11.6-14.6 [facility] Work Phone: MCH (RBC) [Entitic mass] 32.8 pg 27.0-32.0 [facility] Work Phone: [phone] Myelocytes/100 WBC (Bld) 1 % 0-0 [facility] Work Phone: MCHC Auto (RBC) [Mass/Vol]on 04-11-2022 MCHC (RBC) [Mass/Vol] 33.5 g/dL 32-36 [facility] Work Phone: No Panel Informationon 04-11 Estimated Creatinine Clearance Calc 84.06 ml/min [facility] Work Phone: [phone] Estimated GFR (MDRD) Amer 119 mL/min >60 [facility] Work Phone: [phone] Comment on above: GFR Calc Estimated GFR (MDRD) Non-Af Amer 99 mL/min >60 [facility] Work Phone: [phone] Comment on above: Non- GFR Calc Platelets bldon 04-11-2022 Platelets (Bld) [#/Vol] 182 10*3/uL 150-450 [facility] Work Phone: RBC morphologyon 04-11-2022 RBC morphology finding Nom (Bld) NORM C+C NORMAL NORM C&C [facility] Work Phone: Review by pathologiston 03-15 Pathologist review Oscar (Unsp spec) [Interp] Reviewed [facility] Work Phone: Comment on above: Previous reported re sult: Shobha mock Edited by: RGODULCE MARIA on 04/11/22:1331Neutrophilic leukocytosis with left shift. Macrocytic anemia.Clinical correlation necessary.Raul Davies M.D. 04/11/22 AMENDED REPORT 04/11/22 1331 PATH REV previously reported as: Shobha mock Serum or plasma albumin rufus urement (mass/volume)on 04-11-2022 Albumin [Mass/Vol] 2.6 g/dL 3.2-5.0 [facility] Work Phone: Serum or plasma albumin/glob ulin mass ratioon 04-11-2022 Albumin/Globulin [Mass ratio] 0.8 {ratio} 0.9-2.4 [facility] Work Phone: Serum or plasma calcium rufus urement (mass/volume)on 04-11-2022 Calcium [Mass/Vol] 8.2 mg/dL 8.5-10.1 [facility] Work Phone: Serum or plasma creatinine m easurement (mass/volume)on 04-11-2022 Creatinine [Mass/Vol] 0.83 mg/dL 0.70-1.30 [facility] Work Phone: Comment on above: The validity of the calculated GFR & GFRAA in patients over 70 years has not been determined. Clinical correlation is essential. Serum or plasma urea nitroge n measurement (mass/volume)on 04-11-2022 Urea nitrogen [Mass/Vol] 33 mg/dL 7-18 [facility] Work Phone: Thin prep Papanicolaou smear with manual screeningon 04-11-2022 Thin prep Papanicolaou smear with manual screening 13 U/L 15-37 [facility] Work Phone: Thin prep Papanicolaou smear with manual screening 4 5-15 [facility] Work Phone: Total cell counton 2 Cells counted Molgen (Bld/Tiss) [#] 100 MANUAL DIFF [facility] Work Phone: Absolute lymphocyte counton 04-10-2022 Lymphocytes Auto (Unsp spec) [#/Vol] 4.13 10*3/uL 0.83-4.51 [facility] Work Phone: Basophil percentageon 2021 Basophil percentage 0-5 SEEN /hpf 0-5 [facility] Work Phone: Basophil percentage Not Reportable [facility] Work Phone: Basophil percentage 4.5 mg/dL 2.5-4.9 [facility] Work Phone: Bilirubin [Mass/Vol] 1.50 mg/dL 0.20-1.00 [facility] Work Phone: Comment on above: For patients on eltr ombopag therapy, use of Dimension [place] TBIL is not recommended. Chloride [Moles/Vol] 95 mmol/L 98-107 [facility] Work Phone: Glucose [Mass/Vol] 222 mg/dL 74-106 [facility] Work Phone: Comment on above: Glucose result great er than or equal to 200 mg/dLsuggests DIABETES MELLITUS per A.D.A. criteria. Neutrophils (Bld) [#/Vol] 54.3 10*3/uL 2.0-7.7 [facility] Work Phone: Potassium [Moles/Vol] 3.9 mmol/L 3.5-5.1 [facility] Work Phone: Protein [Mass/Vol] 7.4 g/dL 6.4-8.2 [facility] Work Phone: Sodium [Moles/Vol] 134 mmol/L 136-145 [facility] Work Phone: WBC (Bld) [#/Vol] 59.0 10*3/uL 4.4-11.0 [facility] Work Phone: Comment on above: CRITICAL VALUE VERIF IED. CALLED TO NATALIA PEREA04/10/22 1314 Kaur Orellana.RESULTS READ BACK BY SAME . Bilirubin Test strip Ql (U)o n 04-10-2022 Bilirubin Ql (U) Negative Negative [facility] Work Phone: [phone] Blood band neutrophil count as percentage of total leukocyteson 04-10-2022 Band form neutrophils/100 WBC (Bld) 4 % 0-5 [facility] Work Phone: [phone] Blood erythrocytes count (nu mber/volume)on 04-10-2022 RBC (Bld) [#/Vol] 4.29 10*6/uL 4.6-6.2 [facility] Work Phone: [phone] Blood hemoglobin measurement (mass/volume)on 04-10-2022 Hemoglobin (Bld) [Mass/Vol] 14.0 g/dL 13.0-16.5 [facility] Work Phone: [phone] Blood lymphocytes/100 leukoc yteson 04-10-2022 Lymphocytes/100 WBC (Bld) 7 % 19-41 [facility] Work Phone: [phone] Blood monocytes/100 leukocyt eson 04-10-2022 Monocytes/100 WBC (Bld) 1 % 0-10 [facility] Work Phone: [phone] Blood platelet adequacy dete ction by light microscopyon 04-10-2022 Platelets LM Ql (Bld) [facility]: [phone] Blood platelet mean volumeon 04-10-2022 Platelet mean volume (Bld) [Entitic vol] 11.2 fL 6.2-12.0 [facility] Work Phone: [phone] Blood segmented neutrophils/ 100 leukocyteson 04-10-2022 Segmented neutrophils/100 WBC (Bld) 88 % 47-70 [facility] Work Phone: [phone] Determination of erythrocyte mean corpuscular volume (MCV)on 04-10-2022 MCV (RBC) [Entitic vol] 96.0 fL 80-94 [facility] Work Phone: Hematocrit Auto (Bld) [Volum e fraction]on 04-10-2022 Hematocrit (Bld) [Volume fraction] 41.2 % 40-54 [facility] Work Phone: [phone] Hyaline casts LM.LPF (Urine sed) [#/Area]on 04-10-2022 Hyaline casts (Urine sed) [#/Area] 5 /[LPF] 0-5 [facility] Work Phone: INR in Blood by Coagulation assayon 04-10-2022 INR Coag (Bld) [Relative time] 1.0 {INR} [facility] Work Phone: Ketones Test strip Ql (U)on 04-10-2022 Ketones Ql (U) 5 mg/dl Negative [facility] Work Phone: Laboratory - Chemistry and C hemistry - challengeon 04-10-2022 ALP [Catalytic activity/Vol] 191 U/L 45-117 [facility] Work Phone: ALT [Catalytic activity/Vol] 34 U/L 16-61 [facility] Work Phone: [phone] CO2 [Moles/Vol] 28.0 mmol/L 21.0-32.0 [facility] Work Phone: Globulin (S) [Mass/Vol] 4.1 g/dL 2.2-4.2 [facility] Work Phone: Lipase [Catalytic activity/Vol] 131 U/L 73-393 [facility] Work Phone: Magnesium [Mass/Vol] 2.1 mg/dL 1.6-2.6 [facility] Work Phone: Urea nitrogen/Creatinine [Mass ratio] 28.6 mg/mg 10-20 [facility] Work Phone: Laboratory - Coagulationon 0 04-10-2022 aPTT Coag (Bld) [Time] 20.8 s 24.1-36.2 [facility] Work Phone: PT Coag (PPP) [Time] 12.5 s 11.7-14.9 [facility] Work Phone: [phone] Laboratory - Hematology and Cell countson 04-10-2022 Erythrocyte distribution width (RBC) [Entitic vol] 49.4 fL 35.1-43.9 [facility] Work Phone: [phone] Erythrocyte distribution width (RBC) [Ratio] 14.1 % 11.6-14.6 [facility] Work Phone: [phone] MCH (RBC) [Entitic mass] 32.6 pg 27.0-32.0 [facility] Work Phone: [phone] MCHC Auto (RBC) [Mass/Vol]on 04-10-2022 MCHC (RBC) [Mass/Vol] 34.0 g/dL 32-36 [facility] Work Phone: [phone] Mucus LM Ql (Urine sed)on Mucus Ql (Urine sed) 2+ /hpf [facility] Work Phone: [phone] Nitrite Test strip Ql (U)on 04-10-2022 Nitrite Ql (U) Negative Negative [facility] Work Phone: No Panel Informationon 04-10 Estimated Creatinine Clearance Calc 47.46 ml/min [facility] Work Phone: Estimated GFR (MDRD) Amer 62 mL/min >60 [facility] Work Phone: [phone] Comment on above: GFR Calc Estimated GFR (MDRD) Non-Af Amer 51 mL/min >60 [facility] Work Phone: [phone] Comment on above: Non- GFR Calc Platelets bldon 04-10-2022 Platelets (Bld) [#/Vol] 259 10*3/uL 150-450 [facility] Work Phone: [phone] Protein Test strip Ql (U)on 04-10-2022 Protein Ql (U) 30 mg/dl Negative [facility] Work Phone: [phone] RBC morphologyon 04-10-2022 RBC morphology finding Nom (Bld) NORM C+C NORMAL NORM C&C [facility] Work Phone: Review by pathologiston 03-14 Pathologist review Oscar (Unsp spec) [Interp] Shobha mock [facility] Work Phone: Serum or plasma albumin rufus urement (mass/volume)on 04-10-2022 Albumin [Mass/Vol] 3.3 g/dL 3.2-5.0 [facility] Work Phone: [phone] Serum or plasma albumin/glob ulin mass ratioon 04-10-2022 Albumin/Globulin [Mass ratio] 0.8 {ratio} 0.9-2.4 [facility] Work Phone: [phone] Serum or plasma calcium rufus urement (mass/volume)on 04-10-2022 Calcium [Mass/Vol] 9.6 mg/dL 8.5-10.1 [facility] Work Phone: [phone] Serum or plasma creatinine m easurement (mass/volume)on 04-10-2022 Creatinine [Mass/Vol] 1.47 mg/dL 0.70-1.30 [facility] Work Phone: Comment on above: The validity of the calculated GFR & GFRAA in patients over 70 years has not been determined. Clinical correlation is essential. Serum or plasma urea nitroge n measurement (mass/volume)on 04-10-2022 Urea nitrogen [Mass/Vol] 42 mg/dL 7-18 [facility] Work Phone: [phone] Smudge cell detectionon 03-14 Smudge cells LM Ql (Bld) 2+ [facility] Work Phone: [phone] Squamous epithelial cells de tection in urine sediment by light microscopyon 04-10-2022 Epithelial cells.squamous LM Ql (Urine sed) 0 SEEN /hpf 0-5 [facility] Work Phone: [phone] Thin prep Papanicolaou smear with manual screeningon 04-10-2022 Thin prep Papanicolaou smear with manual screening 16 U/L 15-37 [facility] Work Phone: Thin prep Papanicolaou smear with manual screening 11 5-15 [facility] Work Phone: Total cell counton Cells counted Molgen (Bld/Tiss) [#] 100 MANUAL DIFF [facility] Work Phone: Urine blood detectionon - RBC Ql (U) 25 /ul Negative [facility] Work Phone: RBC Ql (U) 0-5 SEEN /hpf 0-5 [facility] Work Phone: Urine clarityon 04-10-2022 Clarity (U) Clear Clear [facility] Work Phone: Urine color determinationon 04-10-2022 Color (U) Yellow Yellow [facility] Work Phone: Urine glucose detectionon Glucose Ql (U) 50 mg/dl Normal [facility] Work Phone: Urine leukocyte esterase det ection by dipstickon 04-10-2022 Leukocyte esterase Test strip Ql (U) Negative Negative [facility] Work Phone: Urine pHon 04-10-2022 pH (U) 5.0 [pH] 5.0 - 8.0 [facility] Work Phone: Urine sediment bacteria coun t by microscopy (number/high power field)on 04-10-2022 Bacteria LM.HPF (Urine sed) [#/Area] 0 /[HPF] None Seen [facility] Work Phone: Urine specific gravity measu rementon 04-10-2022 Specific gravity (U) [Rel density] 1.020 1.002-1.030 [facility] Work Phone: Urobilinogen Auto test strip Ql (U)on 04-10-2022 Urobilinogen Ql (U) Normal mg/dl Normal [facility] Work Phone: Absolute lymphocyte counton 04-06-2022 Lymphocytes Auto (Unsp spec) [#/Vol] 1.92 10*3/uL 0.83-4.51 [facility] Work Phone: Basophil percentageon 2021 Basophils/100 WBC (Bld) 1.1 % 0-1 [facility] Work Phone: Bilirubin [Mass/Vol] 0.40 mg/dL 0.20-1.00 [facility] Work Phone: Comment on above: For patients on eltr ombopag therapy, use of Dimension [place] TBIL is not recommended. Chloride [Moles/Vol] 106 mmol/L 98-107 [facility] Work Phone: Eosinophils/100 WBC (Bld) 0.7 % 0-5 [facility] Work Phone: Glucose [Mass/Vol] 157 mg/dL 74-106 [facility] Work Phone: Comment on above: Fasting Glucose resu lt greater than or equal to 126 mg/dL suggests DIABETES MELLITUS per A.D.A. criteria. Neutrophils (Bld) [#/Vol] 7.4 10*3/uL 2.0-7.7 [facility] Work Phone: Neutrophils/100 WBC (Bld) 69.1 % 47-70 [facility] Work Phone: Potassium [Moles/Vol] 4.2 mmol/L 3.5-5.1 [facility] Work Phone: Protein [Mass/Vol] 7.4 g/dL 6.4-8.2 [facility] Work Phone: Sodium [Moles/Vol] 139 mmol/L 136-145 [facility] Work Phone: WBC (Bld) [#/Vol] 10.7 10*3/uL 4.4-11.0 [facility] Work Phone: Blood erythrocytes count (nu mber/volume)on 04-06-2022 RBC (Bld) [#/Vol] 4.05 10*6/uL 4.6-6.2 [facility] Work Phone: Blood hemoglobin measurement (mass/volume)on 04-06-2022 Hemoglobin (Bld) [Mass/Vol] 13.2 g/dL 13.0-16.5 [facility] Work Phone: [phone] Blood lymphocytes/100 leukoc yteson 04-06-2022 Lymphocytes/100 WBC (Bld) 17.9 % 19-41 [facility] Work Phone: [phone] Blood monocytes/100 leukocyt eson 04-06-2022 Monocytes/100 WBC (Bld) 10.5 % 0-10 [facility] Work Phone: [phone] Blood platelet mean volumeon 04-06-2022 Platelet mean volume (Bld) [Entitic vol] 9.9 fL 6.2-12.0 [facility] Work Phone: [phone] Determination of erythrocyte mean corpuscular volume (MCV)on 04-06-2022 MCV (RBC) [Entitic vol] 95.8 fL 80-94 [facility] Work Phone: [phone] Hematocrit Auto (Bld) [Volum e fraction]on 04-06-2022 Hematocrit (Bld) [Volume fraction] 38.8 % 40-54 [facility] Work Phone: Laboratory - Chemistry and C hemistry - challengeon 04-06-2022 ALP [Catalytic activity/Vol] 173 U/L 45-117 [facility] Work Phone: [phone] ALT [Catalytic activity/Vol] 44 U/L 16-61 [facility] Work Phone: [phone] CO2 [Moles/Vol] 28.0 mmol/L 21.0-32.0 [facility] Work Phone: [phone] Globulin (S) [Mass/Vol] 4.2 g/dL 2.2-4.2 [facility] Work Phone: [phone] Urea nitrogen/Creatinine [Mass ratio] 10.6 mg/mg 10-20 [facility] Work Phone: [phone] Laboratory - Hematology and Cell countson 04-06-2022 Erythrocyte distribution width (RBC) [Entitic vol] 48.6 fL 35.1-43.9 [facility] Work Phone: [phone] Erythrocyte distribution width (RBC) [Ratio] 13.9 % 11.6-14.6 [facility] Work Phone: [phone] Immature granulocytes/100 WBC (Bld) 0.700 % 0.0-0.9 [facility] Work Phone: [phone] Comment on above: IG% - Immature Granu locytes (promyelocytes, myelocytes and metamyelocytes) > 1% indicates that a LEFT SHIFT is Present. MCH (RBC) [Entitic mass] 32.6 pg 27.0-32.0 [facility] Work Phone: [phone] Nucleated RBC/100 WBC (Bld) [Ratio] 0 % 0-5 [facility] Work Phone: [phone] MCHC Auto (RBC) [Mass/Vol]on 04-06-2022 MCHC (RBC) [Mass/Vol] 34.0 g/dL 32-36 [facility] Work Phone: [phone] Panel Informationon 04-06 Estimated Creatinine Clearance Calc 82.08 ml/min [facility] Work Phone: [phone] Estimated GFR (MDRD) Amer 117 mL/min >60 [facility] Work Phone: [phone] Comment on above: GFR Calc Estimated GFR (MDRD) Non-Af Amer 97 mL/min >60 [facility] Work Phone: [phone] Comment on above: Non- GFR Calc Platelets bldon 04-06-2022 Platelets (Bld) [#/Vol] 358 10*3/uL 150-450 [facility] Work Phone: [phone] Serum or plasma albumin rufus urement (mass/volume)on 04-06-2022 Albumin [Mass/Vol] 3.2 g/dL 3.2-5.0 [facility] Work Phone: [phone] Serum or plasma albumin/glob ulin mass ratioon 04-06-2022 Albumin/Globulin [Mass ratio] 0.8 {ratio} 0.9-2.4 [facility] Work Phone: Serum or plasma calcium rufus urement (mass/volume)on 04-06-2022 Calcium [Mass/Vol] 9.2 mg/dL 8.5-10.1 [facility] Work Phone: Serum or plasma creatinine m easurement (mass/volume)on 04-06-2022 Creatinine [Mass/Vol] 0.85 mg/dL 0.70-1.30 [facility] Work Phone: Comment on above: The validity of the calculated GFR & GFRAA in patients over 70 years has not been determined. Clinical correlation is essential. Serum or plasma urea nitroge n measurement (mass/volume)on 04-06-2022 Urea nitrogen [Mass/Vol] 9 mg/dL 7-18 [facility] Work Phone: Thin prep Papanicolaou smear with manual screeningon 04-06-2022 Thin prep Papanicolaou smear with manual screening 25 U/L 15-37 [facility] Work Phone: Thin prep Papanicolaou smear with manual screening 5 5-15 [facility] Work Phone: Blood manual differential co mment interpretation (narrative result)on 03-30-2022 Manual differential comment Oscar (Bld) [Interp] COMMENT [facility] Work Phone: Comment on above: MONOCYTOSIS. Review by pathologiston 03-13 Pathologist review Oscar (Unsp spec) [Interp] Reviewed [facility] Work Phone: Comment on above: Previous reported re sult: Shobha mock Edited by: [place] on 03/31/22:1417Neutrophilic leukocytosis.Macrocytic anemia.Clinical correlation necessary.Raul Davies M.D. 03/31/22 AMENDED REPORT 03/31/22 1417 PATH REV previously reported as: Shobha mock Absolute lymphocyte counton 02-27-2022 Lymphocytes Auto (Unsp spec) [#/Vol] 2.36 10*3/uL 0.83-4.51 [facility] Work Phone: Basophil percentageon 2021 Basophils/100 WBC (Bld) 0.5 % 0-1 [facility] Work Phone: [phone] Bilirubin [Mass/Vol] 0.80 mg/dL 0.20-1.00 [facility] Work Phone: [phone] Comment on above: For patients on eltr ombopag therapy, use of Dimension [place] TBIL is not recommended. Chloride [Moles/Vol] 107 mmol/L 98-107 [facility] Work Phone: [phone] Eosinophils/100 WBC (Bld) 8.7 % 0-5 [facility] Work Phone: [phone] Glucose [Mass/Vol] 104 mg/dL 74-106 [facility] Work Phone: [phone] Comment on above: Fasting Glucose resu lt from 100 to 125 mg/dL suggests IMPAIRED HOMEOSTASIS per A.D.A. criteria. Neutrophils (Bld) [#/Vol] 4.4 10*3/uL 2.0-7.7 [facility] Work Phone: Neutrophils/100 WBC (Bld) 52.4 % 47-70 [facility] Work Phone: [phone] Potassium [Moles/Vol] 4.2 mmol/L 3.5-5.1 [facility] Work Phone: [phone] Protein [Mass/Vol] 8.3 g/dL 6.4-8.2 [facility] Work Phone: [phone] Sodium [Moles/Vol] 139 mmol/L 136-145 [facility] Work Phone: [phone] WBC (Bld) [#/Vol] 8.4 10*3/uL 4.4-11.0 [facility] Work Phone: [phone] Blood erythrocytes count (nu mber/volume)on 02-27-2022 RBC (Bld) [#/Vol] 4.73 10*6/uL 4.6-6.2 [facility] Work Phone: Blood hemoglobin measurement (mass/volume)on 02-27-2022 Hemoglobin (Bld) [Mass/Vol] 15.0 g/dL 13.0-16.5 [facility] Work Phone: Blood lymphocytes/100 leukoc yteson 02-27-2022 Lymphocytes/100 WBC (Bld) 28.1 % 19-41 [facility] Work Phone: Blood monocytes/100 leukocyt eson 02-27-2022 Monocytes/100 WBC (Bld) 9.8 % 0-10 [facility] Work Phone: Blood platelet mean volumeon 02-27-2022 Platelet mean volume (Bld) [Entitic vol] 9.9 fL 6.2-12.0 [facility] Work Phone: Determination of erythrocyte mean corpuscular volume (MCV)on 02-27-2022 MCV (RBC) [Entitic vol] 94.7 fL 80-94 [facility] Work Phone: Hematocrit Auto (Bld) [Volum e fraction]on 02-27-2022 Hematocrit (Bld) [Volume fraction] 44.8 % 40-54 [facility] Work Phone: Laboratory - Chemistry and C hemistry - challengeon 02-27-2022 ALP [Catalytic activity/Vol] 171 U/L 45-117 [facility] Work Phone: ALT [Catalytic activity/Vol] 40 U/L 16-61 [facility] Work Phone: [phone] CO2 [Moles/Vol] 27.0 mmol/L 21.0-32.0 [facility] Work Phone: Globulin (S) [Mass/Vol] 4.9 g/dL 2.2-4.2 [facility] Work Phone: Urea nitrogen/Creatinine [Mass ratio] 10.5 mg/mg 10-20 [facility] Work Phone: Laboratory - Hematology and Cell countson 02-27-2022 Erythrocyte distribution width (RBC) [Entitic vol] 46.0 fL 35.1-43.9 [facility] Work Phone: [phone] Erythrocyte distribution width (RBC) [Ratio] 13.2 % 11.6-14.6 [facility] Work Phone: [phone] Immature granulocytes/100 WBC (Bld) 0.500 % 0.0-0.9 [facility] Work Phone: [phone] Comment on above: IG% - Immature Granu locytes (promyelocytes, myelocytes and metamyelocytes) > 1% indicates that a LEFT SHIFT is Present. MCH (RBC) [Entitic mass] 31.7 pg 27.0-32.0 [facility] Work Phone: [phone] Nucleated RBC/100 WBC (Bld) [Ratio] 0 % 0-5 [facility] Work Phone: [phone] MCHC Auto (RBC) [Mass/Vol]on 02-27-2022 MCHC (RBC) [Mass/Vol] 33.5 g/dL 32-36 [facility] Work Phone: [phone] Panel Informationon 02-27 Estimated GFR (MDRD) Amer 115 mL/min >60 [facility] Work Phone: [phone] Comment on above: GFR Calc Estimated GFR (MDRD) Non-Af Amer 95 mL/min >60 [facility] Work Phone: [phone] Comment on above: Non- GFR Calc Platelets bldon 02-27-2022 Platelets (Bld) [#/Vol] 294 10*3/uL 150-450 [facility] Work Phone: [phone] Serum or plasma albumin rufus urement (mass/volume)on 02-27-2022 Albumin [Mass/Vol] 3.4 g/dL 3.2-5.0 [facility] Work Phone: [phone] Serum or plasma albumin/glob ulin mass ratioon 02-27-2022 Albumin/Globulin [Mass ratio] 0.7 {ratio} 0.9-2.4 [facility] Work Phone: [phone] Serum or plasma calcium rufus urement (mass/volume)on 02-27-2022 Calcium [Mass/Vol] 9.6 mg/dL 8.5-10.1 [facility] Work Phone: Serum or plasma creatinine m easurement (mass/volume)on 02-27-2022 Creatinine [Mass/Vol] 0.86 mg/dL 0.70-1.30 [facility] Work Phone: Comment on above: The validity of the calculated GFR & GFRAA in patients over 70 years has not been determined. Clinical correlation is essential. Serum or plasma urea nitroge n measurement (mass/volume)on 02-27-2022 Urea nitrogen [Mass/Vol] 9 mg/dL - [facility] Work Phone: Thin prep Papanicolaou smear with manual screeningon 02-27-2022 Thin prep Papanicolaou smear with manual screening 26 U/L 15-37 [facility] Work Phone: Thin prep Papanicolaou smear with manual screening 5 5-15 [facility] Work Phone: Basic Metabolic Panelon 01-11 Anion gap [Moles/Vol] 5 mmol/L Normal 3-13 [facility] Comment on above: Performed By: #### B MP3, HEMDF #### [facility] [address] [place] [address] Calcium [Mass/Vol] 8.9 mg/dL Normal 8.4-10.4 [facility] Comment on above: Performed By: #### B MP3, HEMDF #### [facility] [address] [place] [address] CO2 [Moles/Vol] 27 mmol/L Normal 22-30 [facility] Comment on above: Performed By: #### B MP3, HEMDF #### [facility] [address] [place] [address] Glucose [Mass/Vol] 188 mg/dL High 70-100 [facility] Comment on above: Performed By: #### B MP3, HEMDF #### [facility] [address] [place] [address] Urea nitrogen [Mass/Vol] 21 mg/dL High 7-17 [facility] Comment on above: Performed By: #### B MP3, HEMDF #### [facility] [address] [place], [place] Creatinine [Mass/Vol] 0.92 mg/dL Normal 0.52-1.25 [facility] Comment on above: Performed By: #### B MP3, HEMDF #### [address] [place] [address] [place], [place] GFR/1.73 sq M.predicted among blacks MDRD (S/P/Bld) [Vol rate/Area] mL/min/{1.73_m2} Normal >60 [facility] Comment on above: Performed By: #### B MP3, HEMDF #### [address] [address] [place], [place] GFR/1.73 sq M.predicted among non-blacks MDRD (S/P/Bld) [Vol rate/Area] 87.5 mL/min/{1.73_m2} Normal >60 [facility] Comment on above: Result Comment: KDIG O [...] Performed By: #### B MP3, HEMDF #### [address] Chloride [Moles/Vol] 103 mmol/L Normal 98-107 [facility] Comment on above: Performed By: #### B MP3, HEMDF #### [address] [place] [address] Potassium [Moles/Vol] 3.8 mmol/L Normal 3.5-5.1 [facility] Comment on above: Performed By: #### B MP3, HEMDF #### [facility] [address] [place] [address] Sodium [Moles/Vol] 135 mmol/L Normal 135-145 [facility] Comment on above: Performed By: #### B MP3, HEMDF #### [facility] [address] [place], [place] Anion gap [Moles/Vol] 5 mmol/L 3 - 13 mmol/L [facility] Calcium [Mass/Vol] 8.9 mg/dL 8.4 - 10. 4 mg/dL [facility] Chloride [Moles/Vol] 103 mmol/L 98 - 10 7 mmol/L [facility] CO2 [Moles/Vol] 27 mmol/L 22 - 30 mmol/L [facility] Creatinine [Mass/Vol] 0.92 mg/dL 0.52 - 1.25 mg/dL [facility] EGFR IF NonAfrican [place] 87.5 mL/min >60 [facility] Comment on above: KDIGO guidelines pro vide [...] 188 mg/dL High 70 - 100 mg/dL [facility] Interpretation and review of laboratory results Abnormal [facility] Potassium [Moles/Vol] 3.8 mmol/L 3.5 - 5.1 mmol/L [facility] Sodium [Moles/Vol] 135 mmol/L 135 - 145 mmol/L [facility] Urea nitrogen (BldV) [Mass/Vol] 21 mg/dL High 7 - 17 mg/dL [facility] Test Performed by [id number] [place] [address] LAB [facility] CBC with Auto Differentialon 01-27-2022 [...] [Mass/Vol] 14.0 g/dL 13.0 - 18.0 g/dL [facility] Interpretation and review of laboratory results [...] - 10.7 10*3/uL [facility] Test Performed by [address] [address] [facility] Chest Portableon 01-28-20 CR Chest Portable Patient Name: KATARINA MELGOZA Diagnostic Radiology ACCESSION EXAM DATE/TIME PROCEDURE ORDERING PROVIDER [id number] 01/27/2022 06:38 EDT CR Chest Portable [id number] JOAQUIN CHEATHAM CPT code 19980 Reason For Exam (CR Chest Portable) s/p [...] Transcribed Date and Time: 01/27/2022 8:56 Normal [facility] Hemogram w/ Autodiffon 01-27 Abs Baso Cnt 0.0 10*3/uL Normal 0.0-0.2 [facility] Comment on above: Performed By: #### B MP3, HEMDF #### [facility] [address] [place] [address] Abs Neutrophile Cnt 14.0 10*3/uL High 1.8-7.0 [facility] Comment on above: Performed By: #### B MP3, HEMDF #### [address] [place] [address] Basophils/100 WBC (Bld) 0.1 % Normal 0.0-2.0 [facility] Comment on above: Performed By: #### B MP3, HEMDF #### [address] [place] [address] Eosinophils (Bld) [#/Vol] 0.0 10*3/uL Normal 0.0-0.5 [facility] Comment on above: Performed By: #### B MP3, HEMDF #### [facility] [address] [place] [address] Eosinophils/100 WBC (Bld) 0.0 % Low 1.0-6.0 [facility] Comment on above: Performed By: #### B MP3, HEMDF #### [facility] [address] [place] [address] Erythrocyte distribution width (RBC) [Ratio] 14.3 % Normal 11.5-14.5 [facility] Comment on above: Performed By: #### B MP3, HEMDF #### [address] [place] [address] Granulocytes/100 WBC (Bld) 79.3 % Normal 40.0-80.0 [facility] Comment on above: Performed By: #### B MP3, HEMDF #### [facility] [address] [place] [address] Hematocrit (Bld) [Volume fraction] 40.5 % Normal 40.0-52.0 [facility] Comment on above: Performed By: #### B MP3, HEMDF #### [facility] [address], [place] Hemoglobin (Bld) [Mass/Vol] 14.0 g/dL Normal 13.0-18.0 [facility] Comment on above: Performed By: #### B MP3, HEMDF #### [address] [place], [place] Lymphocytes (Bld) [#/Vol] 2.2 10*3/uL Normal 1.0-4.3 [facility] Comment on above: Performed By: #### B MP3, HEMDF #### [address] [place], [place] Lymphocytes/100 WBC (Bld) 12.2 % Low 20.0-40.0 [facility] Comment on above: Performed By: #### B MP3, HEMDF #### [address] [place], [place] MCH (RBC) [Entitic mass] 33.3 pg Normal 26.0-34.0 [facility] Comment on above: Performed By: #### B MP3, HEMDF #### [address] [place], [place] MCHC 34.6 % Normal 32.0-36.0 [facility] Comment on above: Performed By: #### B MP3, HEMDF #### [address] [place], [place] MCV (RBC) [Entitic vol] 96.2 fL Normal 80.0-98.0 [facility] Comment on above: Performed By: #### B MP3, HEMDF #### [address] [place], [place] Monocytes (Bld) [#/Vol] 1.5 10*3/uL High 0.0-0.8 [facility] Comment on above: Performed By: #### B MP3, HEMDF #### [address] [place], [place] Monocytes/100 WBC (Bld) 8.4 % Normal 2.0-10.0 [facility] Comment on above: Performed By: #### B MP3, HEMDF #### [facility] [address] [place] [address] Platelet mean volume (Bld) [Entitic vol] 9.0 fL Normal 7.4-12.4 [facility] Comment on above: Result Comment: MPV is a calculated measurement using platelet volume ratio. Performed By: #### B MP3, HEMDF #### [facility] [address] [place] [address] Platelets (Bld) [#/Vol] 213 10*3/uL Normal 140-440 [facility] Comment on above: Performed By: #### B MP3, HEMDF #### [address] [place], [place] RBC (Bld) [#/Vol] 4.21 10*6/uL Low 4.40-5.90 [facility] Comment on above: Performed By: #### B MP3, HEMDF #### [address] [place], [place] WBC (Bld) [#/Vol] 17.6 10*3/uL High 3.6-10.7 [facility] Comment on above: Performed By: #### B MP3, HEMDF #### [address] [place] [address] XR CHEST PORTABLEon 01-28-20 Patient Name: KATARINA MELGOZA Diagnostic Radiology ACCESSION EXAM DATE/TIME PROCEDURE ORDERING PROVIDER [id number] 01/27/2022 06:38 EDT CR Chest Portable [id number] JOAQUIN CHEATHAM CPT code 02510 Reason For Exam (CR Chest Portable) s/p [...] VLADIMIR Transcribed Date and Time: 01/27/2022 8:56 [facility] RAD Result, Unknown Provider - 01/27/2022 Patient Name: KATARINA MELGOZA Diagnostic Radiology ACCESSION EXAM DATE/TIME PROCEDURE ORDERING PROVIDER [id number] 01/27/2022 06:38 EDT CR Chest Portable [id number] JOAQUIN CHEATHAM CPT code 97645 Reason For Exam (CR Chest Portable) s/p [...] VLADIMIR Transcribed Date and Time: 01/27/2022 8:56 [facility] Work Phone: Radiology Study observation (narrative) [facility] Work Phone: XR CHEST PORTABLEOrdered By: Unknown Result on 01-27-2022 [facility] Basic Metabolic Panelon 01-11 Anion gap [Moles/Vol] 7 mmol/L Normal 3-13 [facility] Comment on above: Performed By: #### H EMDF, BMP3 #### [facility] [address] [place] [address] Calcium [Mass/Vol] 8.8 mg/dL Normal 8.4-10.4 [facility] Comment on above: Performed By: #### H EMDF, BMP3 #### [facility] [address] [place] [address] CO2 [Moles/Vol] 22 mmol/L Normal 22-30 [facility] Comment on above: Performed By: #### H EMDF, BMP3 #### [facility] [address] [place] [address] Glucose [Mass/Vol] 214 mg/dL High 70-100 [facility] Comment on above: Performed By: #### H EMDF, BMP3 #### [facility] [employer] [address] [place] [address] Urea nitrogen [Mass/Vol] 19 mg/dL High -17 [facility] Comment on above: Performed By: #### H EMDF, BMP3 #### [facility] [address] [place] [address] Creatinine [Mass/Vol] 0.79 mg/dL Normal 0.52-1.25 [facility] Comment on above: Performed By: #### H EMDF, BMP3 #### [facility] [address] [place] [address] eGFR OTHER > 90.0 Normal >60 [facility] Comment on above: Result Comment: KDIG O [...] Performed By: #### H KATIE JOHNSON3 #### [address] GFR/1.73 sq M.predicted among blacks MDRD (S/P/Bld) [Vol rate/Area] mL/min/{1.73_m2} Normal >60 [facility] Comment on above: Performed By: #### H KATIE JOHNSON3 #### [address] Potassium [Moles/Vol] 4.6 mmol/L Normal 3.5-5.1 [facility] Comment on above: Performed By: #### H ALEX BMP3 #### [address] Sodium [Moles/Vol] 134 mmol/L Low 135-145 [facility] Comment on above: Performed By: #### H ALXE BMP3 #### [address] Chloride [Moles/Vol] 106 mmol/L Normal 98-107 [facility] Comment on above: Performed By: #### H ALEX BMP3 #### [address] Anion gap [Moles/Vol] 7 mmol/L 3 - 13 mmol/L [facility] Calcium [Mass/Vol] 8.8 mg/dL 8.4 - 10. 4 mg/dL [facility] Chloride [Moles/Vol] 106 mmol/L 98 - 10 7 mmol/L [facility] CO2 [Moles/Vol] 22 mmol/L 22 - 30 mmol/L [facility] Creatinine [Mass/Vol] 0.79 mg/dL 0.52 - 1.25 mg/dL [facility] EGFR IF NonAfrican [place]i >90.0 >60 mL/min [facility] Comment on above: KDIGO guidelines pro [...] 214 mg/dL High 70 - 100 mg/dL [facility] Interpretation and review of laboratory results Abnormal [facility] Potassium [Moles/Vol] 4.6 mmol/L 3.5 - 5.1 mmol/L [facility] Sodium [Moles/Vol] 134 mmol/L Low 135 - 145 mmol/L [facility] Urea nitrogen (BldV) [Mass/Vol] 19 mg/dL High 7 - 17 mg/dL [facility] Test Performed by [facility], [address] [place] [id number] [place] [address] LAB [facility] CBC with Auto Differentialon 01-26-2022 Absolute Baso [...] [Mass/Vol] 14.2 g/dL 13.0 - 18.0 g/dL [facility] Interpretation [...] vol] 8.8 fL 7.4 - 12.4 fL [facility] Comment on above: MPV is a calculated measurement using platelet volume ratio. Platelets (Bld) [#/Vol] 228 10*3/uL 140 - 440 10*3/uL [facility] RBC (Bld) [#/Vol] 4.26 10*6/uL Low 4.40 - 5.9 0 10*6/uL [facility] WBC (Bld) [#/Vol] 14.1 10*3/uL High 3.6 - 10.7 10*3/uL [facility] Test Performed by [facility] [address] [address] [facility] CR Chest Portableon 01-27-20 22 CR Chest Portable Patient Name: KATARINA MELGOZA Diagnostic Radiology ACCESSION EXAM DATE/TIME PROCEDURE ORDERING PROVIDER [id number] 01/26/2022 06:58 EDT CR Chest Portable [id number] -JOAQUIN ALTMAN CPT code 12178 Reason For Exam (CR Chest Portable) s/p [...] Transcribed Date and Time: 01/26/2022 7:13 Normal [facility] EKG 12 Leadon 01-26-2022 [facility] Test Date: 2022-01-25 Pat Name: KATARINA MELGOZA Department: 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1955 Requested By: ALEKSEY CAMPA Order Number: [id number] Reading MD: Jerry Bach Measurements Intervals [place] Rate: 52 P: 55 FL: 144 QRS: 37 QRSD: 98 T: 99 QT: 436 QTc: 406 Interpretive Statements Sinus bradycardia Low voltage, extremity and precordial leads Posterior infarct, old Nonspecific T abnormalities, lateral leads Electronically Signed On 01-26-2022 11:19:10 EDT by Jerry Bach [facility] CARDIOLOGY Jerry Bach MD - 01/26/2022 [facility] Test Date: 2022-01-25 Pat Name: KATARINA MELGOZA Department: 1ASDS Room: 6125 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1955 Requested By: ALEKSEY CAMPA Order Number: [id number] Reading MD: Jerry Bach Measurements Intervals [place] Rate: 52 P: 55 FL: 144 QRS: 37 QRSD: 98 T: 99 QT: 436 QTc: 406 Interpretive Statements Sinus bradycardia Low voltage, extremity and precordial leads Posterior infarct, old Nonspecific T abnormalities, lateral leads Electronically Signed On 01-26-2022 11:19:10 EDT by Jerry Bach [employer] Work Phone: EKG 12 LeadOrdered By: Jerry Bach on 01-26-2022 [employer] Work Phone: Hemogram w/ Autodiffon 01-26 Abs Baso Cnt 0.0 10*3/uL Normal 0.0-0.2 [facility] Comment on above: Performed By: #### H EMDF, BMP3 #### [facility] [address] [place] [address] Abs Neutrophile Cnt 12.6 10*3/uL High 1.8-7.0 [facility] Comment on above: Performed By: #### H EMDF, BMP3 #### [employer] [address] [place] [address] Basophils/100 WBC (Bld) 0.1 % Normal 0.0-2.0 [facility] Comment on above: Performed By: #### H EMDF, BMP3 #### [employer] [address] [place] [address] Eosinophils (Bld) [#/Vol] 0.0 10*3/uL Normal 0.0-0.5 [facility] Comment on above: Performed By: #### H EMDF, BMP3 #### [employer] [address] [place] [address] Eosinophils/100 WBC (Bld) 0.0 % Low 1.0-6.0 [facility] Comment on above: Performed By: #### H EMDF, BMP3 #### [facility] [address] [place], [place] Erythrocyte distribution width (RBC) [Ratio] 14.5 % Normal 11.5-14.5 [facility] Comment on above: Performed By: #### H EMDF, BMP3 #### [facility] [address] [place], [place] Granulocytes/100 WBC (Bld) 89.5 % High 40.0-80.0 [facility] Comment on above: Performed By: #### H EMDF, BMP3 #### [address] [place], [place] Hematocrit (Bld) [Volume fraction] 41.0 % Normal 40.0-52.0 [facility] Comment on above: Performed By: #### H EMDF, BMP3 #### [address] [place], [place] Hemoglobin (Bld) [Mass/Vol] 14.2 g/dL Normal 13.0-18.0 [facility] Comment on above: Performed By: #### H EMDF, BMP3 #### [address] [place], [place] Lymphocytes (Bld) [#/Vol] 1.0 10*3/uL Normal 1.0-4.3 [facility] Comment on above: Performed By: #### H EMDF, BMP3 #### [address] [place], [place] Lymphocytes/100 WBC (Bld) 7.3 % Low 20.0-40.0 [facility] Comment on above: Performed By: #### H EMDF, BMP3 #### [facility] [address] [place], [place] MCH (RBC) [Entitic mass] 33.3 pg Normal 26.0-34.0 [facility] Comment on above: Performed By: #### H EMDF, BMP3 #### [address] [place], [place] MCHC 34.6 % Normal 32.0-36.0 [facility] Comment on above: Performed By: #### H ALEX BMP3 #### [address] MCV (RBC) [Entitic vol] 96.1 fL Normal 80.0-98.0 [facility] Comment on above: Performed By: #### H ALEX BMP3 #### [address] Monocytes (Bld) [#/Vol] 0.4 10*3/uL Normal 0.0-0.8 [facility] Comment on above: Performed By: #### H ALEX BMP3 #### [address] Monocytes/100 WBC (Bld) 3.1 % Normal 2.0-10.0 [facility] Comment on above: Performed By: #### H ALEX BMP3 #### [address] Platelet mean volume (Bld) [Entitic vol] 8.8 fL Normal 7.4-12.4 [facility] Comment on above: Result Comment: MPV is a calculated measurement using platelet volume ratio. Performed By: #### H ALEX BMP3 #### [address] Platelets (Bld) [#/Vol] 228 10*3/uL Normal 140-440 [facility] Comment on above: Performed By: #### H ALEX BMP3 #### [address] RBC (Bld) [#/Vol] 4.26 10*6/uL Low 4.40-5.90 [facility] Comment on above: Performed By: #### H ALEX BMP3 #### [address] WBC (Bld) [#/Vol] 14.1 10*3/uL High 3.6-10.7 [facility] Comment on above: Performed By: #### H ALEX BMP3 #### [address] [address] XR CHEST PORTABLEon 01-27-20 Patient Name: KATARINA MELGOZA Diagnostic Radiology ACCESSION EXAM DATE/TIME PROCEDURE ORDERING PROVIDER [id number] 01/26/2022 06:58 EDT CR Chest Portable Josh CisnerosJOAQUIN ALTMAN CPT code 57472 Reason For Exam (CR Chest Portable) s/p [...] JOHN Transcribed Date and Time: 01/26/2022 7:13 [facility] Fermin Ramirez MD - 01/26/2022 Patient Name: KATARINA MELGOZA Diagnostic Radiology ACCESSION EXAM DATE/TIME PROCEDURE ORDERING PROVIDER [id number] 01/26/2022 06:58 EDT CR Chest Portable [id number] AVENDAÑO CPT code 08047 Reason For Exam (CR Chest Portable) s/p [...] JOHN Transcribed Date and Time: 01/26/2022 7:13 [facility] Work Phone: Radiology Study observation (narrative) [facility] Work Phone: XR CHEST PORTABLEOrdered By: Fermin Ramirez on 01-26-2022 [facility] Work Phone: Arterial Blood Gaseson 01-25 CO2 [Moles/Vol] 25.8 mmol/L Normal 23.0-27.0 [facility] Comment on above: Performed By: #### A BG #### [facility] [address] [place] [address] HCO3 (Bld) [Moles/Vol] 24.0 mmol/L Normal 21.0-25.0 [facility] Comment on above: Performed By: #### A BG #### [facility] [address] [place] [address] Hemoglobin (Bld) [Mass/Vol] 15.6 g/dL Normal ScreenOnly [facility] Comment on above: Performed By: #### A BG #### [facility] [address] [place], [place] Oxygen (Bld) [Partial pressure] 66.5 mm[Hg] Low 80.0-100.0 [facility] Comment on above: Performed By: #### A BG #### [facility] [address] [place], [place] Oxygen saturation in Blood 88.2 % Low 95.0-100.0 [facility] Comment on above: Performed By: #### A BG #### [facility] [address] [place], [place] pCO2 61.4 mm[Hg] High 35.0-45.0 [facility] Comment on above: Performed By: #### A BG #### [address] [place], [place] pH 7.209 Low 7.350-7.450 [facility] Comment on above: Performed By: #### A BG #### [address] [place], [place] Std Base Excess -5.1 mmol/L Low -3.0-3.0 [facility] Comment on above: Performed By: #### A BG #### [address] [place], [place] FIO2 1.0 Normal [facility] Comment on above: Performed By: #### A BG #### [address] [place], [place] CO2 [Moles/Vol] 25.8 mmol/L Normal 23.0-27.0 [facility] Comment on above: Performed By: #### A BG #### [facility] [address] [place], [place] HCO3 (Bld) [Moles/Vol] 24.3 mmol/L Normal 21.0-25.0 [facility] Comment on above: Performed By: #### A BG #### [address] [place], [place] Hemoglobin (Bld) [Mass/Vol] 15.1 g/dL Normal ScreenOnly [facility] Comment on above: Performed By: #### A BG #### [facility] [address] [place], [place] Oxygen (Bld) [Partial pressure] 417.1 mm[Hg] High 80.0-100.0 [facility] Comment on above: Performed By: #### A BG #### [facility] [address] [place], [place] Oxygen saturation in Blood 99.7 % Normal 95.0-100.0 [facility] Comment on above: Performed By: #### A BG #### [facility] [address] [place], [place] pCO2 49.3 mm[Hg] High 35.0-45.0 [facility] Comment on above: Performed By: #### A BG #### [facility] [address] [place], [place] pH 7.311 Low 7.350-7.450 [facility] Comment on above: Performed By: #### A BG #### [facility] [address] [place], [place] Std Base Excess -2.4 mmol/L Normal -3.0-3.0 [facility] Comment on above: Performed By: #### A BG #### [facility] [address] [place], [place] FIO2 No data Normal [facility] Comment on above: Performed By: #### A BG #### [address] [place], [place] Basic Metabolic Panelon 06- Anion gap [Moles/Vol] 8 mmol/L Normal 3-13 [facility] Comment on above: Performed By: #### H EMDF BMP3M ####[facility] [place], [place] Calcium [Mass/Vol] 9.1 mg/dL Normal 8.4-10.4 [facility] Comment on above: Performed By: #### H EMDF, BMP3M ####[address] [place], [place] CO2 [Moles/Vol] 24 mmol/L Normal 22-30 [facility] Comment on above: Performed By: #### H ALEX BMP3M ####[facility] [place], [place] Glucose [Mass/Vol] 126 mg/dL High 70-100 [facility] Comment on above: Performed By: #### H ALEX BMP3M ####[address] [place], [place] Urea nitrogen [Mass/Vol] 17 mg/dL Normal 7-17 [facility] Comment on above: Performed By: #### H ALEX BMP3M ####[address] [place], [place] eGFR OTHER > 90.0 Normal >60 [facility] Comment on above: Result Comment: KDIG O [...] tubular creatinine secretion. Performed By: #### H ALEX BMP3M ####[address] [place], [place] Potassium [Moles/Vol] 4.1 mmol/L Normal 3.5-5.1 [facility] Comment on above: Performed By: #### H ALEX BMP3M ####[address] [place], [place] Chloride [Moles/Vol] 105 mmol/L Normal 98-107 [facility] Comment on above: Performed By: #### H ALEX BMP3M ####[facility] [id number] [place], [place] Sodium [Moles/Vol] 137 mmol/L Normal 135-145 [facility] Comment on above: Performed By: #### H ALEX BMP3M ####[facility] [employer] [id number] [place], [place] Creatinine [Mass/Vol] 0.72 mg/dL Normal 0.52-1.25 [facility] Comment on above: Performed By: #### H ALEX BMP3M ####[facility] [employer] [id number] [place], [place] GFR/1.73 sq M.predicted among blacks MDRD (S/P/Bld) [Vol rate/Area] mL/min/{1.73_m2} Normal >60 [facility] Comment on above: Performed By: #### H ALEX, BMP3M ####[facility] [employer] [id number] [place], [place] Basic Metabolic Panel w/ Ref rangel to MGon 01-25-2022 Anion gap [Moles/Vol] 8 mmol/L 3 - 13 mmol/L [facility] Calcium [Mass/Vol] 9.1 mg/dL 8.4 - 10. 4 mg/dL [facility] Chloride [Moles/Vol] 105 mmol/L 98 - 10 7 mmol/L [facility] CO2 [Moles/Vol] 24 mmol/L 22 - 30 mmol/L [facility] EGFR IF NonAfrican [place]i >90.0 >60 mL/min [facility] Comment on above: KDIGO guidelines pro vide [...] - 17 mg/dL [facility] Test Performed by [address] [address] [facility] Blood Gas, Arterialon 2021 Base Excess, Arterial -5.1 mmol/L Low -3.0 - 3.0 mmol/L [facility] CO2 [Moles/Vol] 25.8 mmol/L 23.0 - 27.0 mmol/L [facility] FIO2 Arterial 1.0 [facility] HCO3 (Bld) [Moles/Vol] 24.0 mmol/L 21.0 - 25.0 mmol/L [facility] Hemoglobin (Bld) [Mass/Vol] 15.6 g/dL ScreenOnly [facility] Interpretation and review of laboratory results Abnormal [facility] Oxygen saturation in Blood 88.2 % Low 95.0 - 100.0 % [facility] pCO2, Arterial 61.4 mm[Hg] High 35.0 - 45.0 mm[Hg] [facility] pH, Arterial 7.209 Low [facility] pO2, Arterial 66.5 mm[Hg] Low 80.0 - 100.0 mm[Hg] [facility] Test Performed by [address] [address] [facility] Base Excess, Arterial -2.4 mmol/L -3.0 - 3.0 mmol/L [facility] CO2 [Moles/Vol] 25.8 mmol/L 23.0 - 27.0 mmol/L [facility] FIO2 Arterial No data [facility] HCO3 (Bld) [Moles/Vol] 24.3 mmol/L 21.0 - 25.0 mmol/L [facility] Hemoglobin (Bld) [Mass/Vol] 15.1 g/dL ScreenOnly [facility] Interpretation and review of laboratory results Abnormal [facility] Oxygen saturation in Blood 99.7 % 95.0 - 100.0 % [facility] pCO2, Arterial 49.3 mm[Hg] High 35.0 - 45.0 mm[Hg] [facility] pH, Arterial 7.311 Low [facility] pO2, Arterial 417.1 mm[Hg] High 80.0 - 100.0 mm[Hg] [facility] Test Performed by [facility], [address] [place] [id number] [place] [address] LAB [facility] CBC with Auto Differentialon 01-25-2022 [...] [Mass/Vol] 15.4 g/dL 13.0 - 18.0 g/dL [facility] Interpretation and review of laboratory results [...] vol] 8.5 fL 7.4 - 12.4 fL [facility] Comment on above: MPV is a calculated measurement using platelet volume ratio. Platelets (Bld) [#/Vol] 241 10*3/uL 140 - 440 10*3/uL [facility] RBC (Bld) [#/Vol] 4.58 10*6/uL 4.40 - 5.9 0 10*6/uL [facility] WBC (Bld) [#/Vol] 8.1 10*3/uL 3.6 - 10.7 10*3/uL [facility] Test Performed by [address] [address] [facility] CR Chest Portableon 01-26-20 CR Chest Portable Patient Name: KATARINA MELGOZA Diagnostic Radiology ACCESSION EXAM DATE/TIME PROCEDURE ORDERING PROVIDER [id number] 01/25/2022 19:54 EDT CR Chest Portable [id number] -JOAQUIN ALTMAN CPT code 40228 Reason For Exam (CR Chest Portable) s/p [...] Transcribed Date and Time: 01/25/2022 8:05 Normal [facility] Hemogram w/ Autodiffon 01-25 Abs Baso Cnt 0.0 10*3/uL Normal 0.0-0.2 [facility] Comment on above: Performed By: #### H ALEX BMP3M #### [facility] [address] [place] [address] Abs Neutrophile Cnt 4.3 10*3/uL Normal 1.8-7.0 [facility] Comment on above: Performed By: #### H ALEX BMP3M #### [facility] [address] [place] [address] Basophils/100 WBC (Bld) 0.4 % Normal 0.0-2.0 [facility] Comment on above: Performed By: #### H ALEX BMP3M #### [address] [place] [address] Eosinophils (Bld) [#/Vol] 0.2 10*3/uL Normal 0.0-0.5 [facility] Comment on above: Performed By: #### H EMDDanyell BMP3M #### [address] [place] [address] Eosinophils/100 WBC (Bld) 2.3 % Normal 1.0-6.0 [facility] Comment on above: Performed By: #### H ALEX BMP3M #### [address] [place] [address] Erythrocyte distribution width (RBC) [Ratio] 14.2 % Normal 11.5-14.5 [facility] Comment on above: Performed By: #### H EMDF BMP3M #### [address] [place] [address] Granulocytes/100 WBC (Bld) 53.3 % Normal 40.0-80.0 [facility] Comment on above: Performed By: #### H EMDF BMP3M #### [address] [place] [address] Hematocrit (Bld) [Volume fraction] 44.0 % Normal 40.0-52.0 [facility] Comment on above: Performed By: #### H EMDF BMP3M #### [facility] [address] [place], [place] Hemoglobin (Bld) [Mass/Vol] 15.4 g/dL Normal 13.0-18.0 [facility] Comment on above: Performed By: #### H EMDF BMP3M #### [address] [place], [place] Lymphocytes (Bld) [#/Vol] 2.6 10*3/uL Normal 1.0-4.3 [facility] Comment on above: Performed By: #### H EMDF BMP3M #### [address] [place], [place] Lymphocytes/100 WBC (Bld) 32.3 % Normal 20.0-40.0 [facility] Comment on above: Performed By: #### H EMDF BMP3M #### [address] [place], [place] MCH (RBC) [Entitic mass] 33.5 pg Normal 26.0-34.0 [facility] Comment on above: Performed By: #### H EMDF BMP3M #### [address] [place] MCHC 34.9 % Normal 32.0-36.0 [facility] Comment on above: Performed By: #### H EMDF BMP3M #### [address] [place], [place] MCV (RBC) [Entitic vol] 96.0 fL Normal 80.0-98.0 [facility] Comment on above: Performed By: #### H EMDF, BMP3M #### [address] [place], [place] Monocytes (Bld) [#/Vol] 0.9 10*3/uL High 0.0-0.8 [facility] Comment on above: Performed By: #### H EMDF, BMP3M #### [address] [place], [place] Monocytes/100 WBC (Bld) 11.7 % High 2.0-10.0 [facility] Comment on above: Performed By: #### H KATIE JOHNSON3M #### [facility] [address] [place], [place] Platelet mean volume (Bld) [Entitic vol] 8.5 fL Normal 7.4-12.4 [facility] Comment on above: Result Comment: MPV is a calculated measurement using platelet volume ratio. Performed By: #### H ALEX BMP3M #### [facility] [address] [place], [place] Platelets (Bld) [#/Vol] 241 10*3/uL Normal 140-440 [facility] Comment on above: Performed By: #### H ALEX BMP3M #### [facility] [address] [place], [place] RBC (Bld) [#/Vol] 4.58 10*6/uL Normal 4.40-5.90 [facility] Comment on above: Performed By: #### H ALEX BMP3M #### [facility] [address] [place], [place] WBC (Bld) [#/Vol] 8.1 10*3/uL Normal 3.6-10.7 [facility] Comment on above: Performed By: #### Maria Guadalupe JOHNSON BMP3M #### [facility] [address] [place], [place] OPERATIVE REPORTon Ordered by an unspecified provider. [facility] Op Noteon 01-25-2022 Op Note Aleksey Campa DO , MS Cardiothoracic Surgery [facility] OPERATIVE REPORT PATIENT: Katarina Melgoza Date of : 1955 Service Date: 01/25/2022 SURGEON: Aleksey Campa DO MS LABOR DELIVERY SPECIALIST: Shantelle Grimaldo PRE-OPERATIVE DIAGNOSES: 1. Right Lower [...] lobe nodule. He was evaluated at a OSH and found to have NSCLC with pathologically [...] costal space. A 12 mm air seal store administrative assistant port was placed just above the diaphragm under direct visualization. The robot was then docked and targeting performed. The camera was placed through the store administrative assistant port and a tip up, long bipolar [...] continued ove (more content not included)... Normal [facility] Surgical Pathologyon 022 Surgical Pathology [id number] [facility] OF [facility] PATHOLOGY AND LABORATORY MEDICINE [address] [place] [id number] FINAL SURGICAL PATHOLOGY REPORT NAME: KATARINA MELGOZA : 1955 66 Y M BILLING NO.: [id number] LOCATION: [facility] 6125 PROCEDURE 01/25/2022 DATE: SURGEON: ALEKSEY CAMPA DO RECEIVED 01/26/2022 DATE: ATTENDING: ALEKSEY CAMPA DO REPORT DATE: 02/17/2022 COPIES TO: [...] any site-specific staining. Clinical correlation is required. RANGE MANAGEMENT SPECIALIST TUMOR BLOCK(S): F5 SMT/SMT Signature> S CAROLINA [...] nodular, g (more content not included)... Normal [employer] TS GELon 01-25-2022 TS GEL ABO Group: A Rh, Gel: NEG Antibody Screen Gel: NEG Normal [facility] Comment on above: Performed By: #### T SGL ####[facility] TYPE AND SCREENon 01-25-2022 ABO Grouping A [facility] Rh Type Negative [facility] Test Performed by Petsy [facility], [address] [place] [id number] [place] [address] LAB [facility] XR CHEST PORTABLEon 01-26-20 Patient Name: KATARINA MELGOZA Diagnostic Radiology ACCESSION EXAM DATE/TIME PROCEDURE ORDERING PROVIDER [id number] 01/25/2022 19:54 EDT CR Chest Portable [id number] JOAQUIN CHEATHAM CPT code 76193 Reason For Exam (CR Chest Portable) s/p [...] WENDELL Transcribed Date and Time: 01/25/2022 8:05 [facility] Ruperto Daniel MD - 01/25/2022 Patient Name: KATARINA MELGOZA Diagnostic Radiology ACCESSION EXAM DATE/TIME PROCEDURE ORDERING PROVIDER [id number] 01/25/2022 19:54 EDT CR Chest Portable [id number] -JOAQUIN ALTMAN CPT code 11944 Reason For Exam (CR Chest Portable) s/p [...] WENDELL Transcribed Date and Time: 01/25/2022 8:05 [facility] Work Phone: Radiology Study observation (narrative) [facility] Work Phone: XR CHEST PORTABLEOrdered By: Ruperto Rosario on 01-25-2022 [facility] Work Phone: Basophil percentageon 2021 WBC (Bld) [#/Vol] 8.5 10*3/uL 4.4-11.0 [facility] Work Phone: Blood erythrocytes count (nu mber/volume)on 12-28-2021 RBC (Bld) [#/Vol] 4.59 10*6/uL 4.6-6.2 [facility] Work Phone: Blood hemoglobin measurement (mass/volume)on 12-28-2021 Hemoglobin (Bld) [Mass/Vol] 15.0 g/dL 13.0-16.5 [facility] Work Phone: Blood platelet mean volumeon 12-28-2021 Platelet mean volume (Bld) [Entitic vol] 10.1 fL 6.2-12.0 [facility] Work Phone: Determination of erythrocyte mean corpuscular volume (MCV)on 12-28-2021 MCV (RBC) [Entitic vol] 96.7 fL 80-94 [facility] Work Phone: Hematocrit Auto (Bld) [Volum e fraction]on 12-28-2021 Hematocrit (Bld) [Volume fraction] 44.4 % 40-54 [facility] Work Phone: INR in Blood by Coagulation assayon 12-28-2021 INR Coag (Bld) [Relative time] 1.0 {INR} [facility] Work Phone: Laboratory - Coagulationon 0 12-28-2021 aPTT Coag (Bld) [Time] 28.1 s [facility].1[facility] Work Phone: PT Coag (PPP) [Time] 12.6 s 11.7-14.9 [facility] Work Phone: Laboratory - Hematology and Cell countson 12-28-2021 Erythrocyte distribution width (RBC) [Entitic vol] 48.8 fL 35.1-43.9 [facility] Work Phone: Erythrocyte distribution width (RBC) [Ratio] 13.7 % 11.6-14.6 [facility] Work Phone: [phone] MCH (RBC) [Entitic mass] 32.7 pg 27.0-32.0 [facility] Work Phone: MCHC Auto (RBC) [Mass/Vol]on 12-28-2021 MCHC (RBC) [Mass/Vol] 33.8 g/dL 32-36 [facility] Work Phone: Platelets bldon 12-28-2021 Platelets (Bld) [#/Vol] 278 10*3/uL 150-450 [facility] Work Phone: [phone] Absolute lymphocyte counton 12-07-2021 Lymphocytes Auto (Unsp spec) [#/Vol] 2.65 10*3/uL 0.83-4.51 [facility] Work Phone: [phone] Basophil percentageon 2021 Basophils/100 WBC (Bld) 0.4 % 0-1 [facility] Work Phone: Bilirubin [Mass/Vol] 0.60 mg/dL 0.20-1.00 [facility] Work Phone: Comment on above: For patients on eltr ombopag therapy, use of Dimension [place] TBIL is not recommended. Chloride [Moles/Vol] 105 mmol/L 98-107 [facility] Work Phone: [phone] Eosinophils/100 WBC (Bld) 1.5 % 0-5 [facility] Work Phone: [phone] Glucose [Mass/Vol] 139 mg/dL 74-106 [facility] Work Phone: Comment on above: Fasting Glucose resu lt greater than or equal to 126 mg/dL suggests DIABETES MELLITUS per A.D.A. criteria. Neutrophils (Bld) [#/Vol] 4.7 10*3/uL 2.0-7.7 [facility] Work Phone: Neutrophils/100 WBC (Bld) 55.9 % 47-70 [facility] Work Phone: Potassium [Moles/Vol] 4.1 mmol/L 3.5-5.1 [facility] Work Phone: Protein [Mass/Vol] 7.9 g/dL 6.4-8.2 [facility] Work [facility]: Sodium [Moles/Vol] 139 mmol/L 136-145 [facility] Work Phone: WBC (Bld) [#/Vol] 8.5 10*3/uL 4.4-11.0 [facility] Work Phone: Blood erythrocytes count (nu mber/volume)on 12-07-2021 RBC (Bld) [#/Vol] 4.52 10*6/uL 4.6-6.2 [facility] Work Phone: Blood hemoglobin measurement (mass/volume)on 12-07-2021 Hemoglobin (Bld) [Mass/Vol] 14.5 g/dL 13.0-16.5 [facility] Work Phone: Blood lymphocytes/100 leukoc yteson 12-07-2021 Lymphocytes/100 WBC (Bld) 31.3 % 19-41 [facility] Work Phone: Blood monocytes/100 leukocyt eson 12-07-2021 Monocytes/100 WBC (Bld) 10.4 % 0-10 [facility] Work Phone: Blood platelet mean volumeon 12-07-2021 Platelet mean volume (Bld) [Entitic vol] 10.1 fL 6.2-12.0 [facility] Work Phone: Determination of erythrocyte mean corpuscular volume (MCV)on 12-07-2021 MCV (RBC) [Entitic vol] 96.7 fL 80-94 [facility] Work Phone: Hematocrit Auto (Bld) [Volum e fraction]on 12-07-2021 Hematocrit (Bld) [Volume fraction] 43.7 % 40-54 [facility] Work Phone: [phone] Laboratory - Chemistry and C hemistry - challengeon 12-07-2021 ALP [Catalytic activity/Vol] 148 U/L 45-117 [facility] Work Phone: [phone] ALT [Catalytic activity/Vol] 51 U/L 16-61 [facility] Work Phone: [phone] CO2 [Moles/Vol] 26.0 mmol/L 21.0-32.0 [facility] Work Phone: [phone] Globulin (S) [Mass/Vol] 4.3 g/dL 2.2-4.2 [facility] Work Phone: [phone] Urea nitrogen/Creatinine [Mass ratio] 12.9 mg/mg 10-20 [facility] Work Phone: [phone] Laboratory - Hematology and Cell countson 12-07-2021 Erythrocyte distribution width (RBC) [Entitic vol] 47.8 fL 35.1-43.9 [facility] Work Phone: [phone] Erythrocyte distribution width (RBC) [Ratio] 13.5 % 11.6-14.6 [facility] Work Phone: [phone] Immature granulocytes/100 WBC (Bld) 0.500 % 0.0-0.9 [facility] Work Phone: [phone] Comment on above: IG% - Immature Granu locytes (promyelocytes, myelocytes and metamyelocytes) > 1% indicates that a LEFT SHIFT is Present. MCH (RBC) [Entitic mass] 32.1 pg 27.0-32.0 [facility] Work Phone: [phone] Nucleated RBC/100 WBC (Bld) [Ratio] 0 % 0-5 [facility] Work Phone: [phone] MCHC Auto (RBC) [Mass/Vol]on 12-07-2021 MCHC (RBC) [Mass/Vol] 33.2 g/dL 32-36 [facility] Work Phone: [phone] Panel Informationon 12-07 Estimated GFR (MDRD) Amer 116 mL/min >60 [facility] Work Phone: Comment on above: GFR Calc Estimated GFR (MDRD) Non-Af Amer 96 mL/min >60 [facility] Work Phone: Comment on above: Non- GFR Calc Platelets bldon 12-07-2021 Platelets (Bld) [#/Vol] 250 10*3/uL 150-450 [facility] Work Phone: Serum or plasma albumin rufus urement (mass/volume)on 12-07-2021 Albumin [Mass/Vol] 3.6 g/dL 3.2-5.0 [facility] Work Phone: Serum or plasma albumin/glob ulin mass ratioon 12-07-2021 Albumin/Globulin [Mass ratio] 0.8 {ratio} 0.9-2.4 [facility] Work Phone: Serum or plasma calcium rufus urement (mass/volume)on 12-07-2021 Calcium [Mass/Vol] 8.6 mg/dL 8.5-10.1 [facility] Work Phone: Serum or plasma creatinine m easurement (mass/volume)on 12-07-2021 Creatinine [Mass/Vol] 0.86 mg/dL 0.70-1.30 [facility] Work Phone: Comment on above: The validity of the calculated GFR & GFRAA in patients over 70 years has not been determined. Clinical correlation is essential. Serum or plasma urea nitroge n measurement (mass/volume)on 12-07-2021 Urea nitrogen [Mass/Vol] 11 mg/dL 7-18 [facility] Work Phone: [phone] Thin prep Papanicolaou smear with manual screeningon 12-07-2021 Thin prep Papanicolaou smear with manual screening 51 U/L 15-37 [facility] Work Phone: [phone] Thin prep Papanicolaou smear with manual screening 8 5-15 [facility] Work Phone: [phone] INR in Blood by Coagulation assayon 11-21-2021 INR Coag (Bld) [Relative time] 1.0 {INR} [facility] Work Phone: Laboratory - Coagulationon 0 11-21-2021 aPTT Coag (Bld) [Time] 28.0 s 24.1-36.2 [facility] Work Phone: PT Coag (PPP) [Time] 12.8 s 11.7-14.9 [facility] Work Phone: Platelets bldon 11-21-2021 Platelets (Bld) [#/Vol] 260 10*3/uL 150-450 [facility] Work Phone: Basophil percentageon 2020 Chloride [Moles/Vol] 105 mmol/L 98-107 [facility] Work Phone: Glucose [Mass/Vol] 119 mg/dL 74-106 [facility] Work Phone: Comment on above: Fasting Glucose resu lt from 100 to 125 mg/dL suggests IMPAIRED HOMEOSTASIS per A.D.A. criteria.Please note revised GLUCOSE reference range effective 2017. Potassium [Moles/Vol] 4.0 mmol/L 3.5-5.1 [facility] Work Phone: [phone] Sodium [Moles/Vol] 139 mmol/L 136-145 [facility] Work Phone: WBC (Bld) [#/Vol] 7.8 10*3/uL 4.4-11.0 [facility] Work Phone: Blood erythrocytes count (nu mber/volume)on 08-01-2021 RBC (Bld) [#/Vol] 4.88 10*6/uL 4.6-6.2 [facility] Work Phone: Blood hemoglobin measurement (mass/volume)on 08-01-2021 Hemoglobin (Bld) [Mass/Vol] 16.1 g/dL 13.0-16.5 [facility] Work Phone: Blood platelet mean volumeon 08-01-2021 Platelet mean volume (Bld) [Entitic vol] 9.9 fL 6.2-12.0 [facility] Work Phone: [phone] Determination of erythrocyte mean corpuscular volume (MCV)on 08-01-2021 MCV (RBC) [Entitic vol] 95.9 fL 80-94 [facility] Work Phone: [phone] Hematocrit Auto (Bld) [Volum e fraction]on 08-01-2021 Hematocrit (Bld) [Volume fraction] 46.8 % 40-54 [facility] Work Phone: [phone] Laboratory - Chemistry and C hemistry - challengeon 08-01-2021 CO2 [Moles/Vol] 28.0 mmol/L 21.0-32.0 [facility] Work Phone: [phone] Urea nitrogen/Creatinine [Mass ratio] 15.2 mg/mg 06-01 [facility] Work Phone: [phone] Laboratory - Hematology and Cell countson 08-01-2021 Erythrocyte distribution width (RBC) [Entitic vol] 48.2 fL 35.1-43.9 [facility] Work Phone: [phone] Erythrocyte distribution width (RBC) [Ratio] 13.5 % 11.6-14.6 [facility] Work Phone: [phone] MCH (RBC) [Entitic mass] 33.0 pg 27.0-32.0 [facility] Work Phone: [phone] MCHC Auto (RBC) [Mass/Vol]on 08-01-2021 MCHC (RBC) [Mass/Vol] 34.4 g/dL 32-36 [facility] Work Phone: [phone] Panel Informationon 08-01 Estimated GFR (MDRD) Amer 107 mL/min >60 [facility] Work Phone: [phone] Comment on above: GFR Calc Estimated GFR (MDRD) Non-Af Amer 88 mL/min >60 [facility] Work Phone: [phone] Comment on above: Non- GFR Calc Platelets bldon 08-01-2021 Platelets (Bld) [#/Vol] 279 10*3/uL 150-450 [facility] Work Phone: Serum or plasma calcium rufus urement (mass/volume)on 08-01-2021 Calcium [Mass/Vol] 9.5 mg/dL 8.5-10.1 [facility] Work Phone: Serum or plasma creatinine m easurement (mass/volume)on 08-01-2021 Creatinine [Mass/Vol] 0.92 mg/dL 0.70-1.30 [facility] Work Phone: Comment on above: The validity of the calculated GFR & GFRAA in patients over 70 years has not been determined. Clinical correlation is essential. Serum or plasma urea nitroge n measurement (mass/volume)on 08-01-2021 Urea nitrogen [Mass/Vol] 14 mg/dL 7-18 [facility] Work Phone: Thin prep Papanicolaou smear with manual screeningon 08-01-2021 Thin prep Papanicolaou smear with manual screening 6 5-15 [facility] Work Phone: Whole blood hemoglobin A1c/t otal hemoglobin ratio (mass fraction)on 08-01-2021 HbA1c (Bld) [Mass fraction] 6.1 % 3.8-5.6 [facility] Work Phone: Comment on above: Normal < 5.7 % Predi abetic 5.7 - 6.4 % Diabetic >or= 6.5 % Please note range changes. Lab Report: Lipid Profileon 09-27-2017 Cholesterol 128 mg/dL Invalid Interpretation Code 200 [facility] Work Phone: [phone] HDL Cholesterol 35 mg/dL Low [facility] Work Phone: [phone] LDL Cholesterol 61 mg/dL Invalid Interpretation Code 0-130 [facility] Work Phone: [phone] Triglyceride 162 mg/dL Invalid Interpretation Code [facility] Work Phone: [phone] very low density lipoproteins 32 mg/dL Invalid Interpretation Code 5-40 [facility] Work Phone: [phone] Lab Report: Liver Profileon 09-27-2017 Alanine aminotransferase (ALT) 42 U/L Invalid Interpretation Code 16-61 [facility] Work Phone: [phone] Albumin 3.7 g/dL Invalid Interpretation Code 3.2-5.0 [facility] Work Phone: [phone] Alkaline phosphatase (ALP) 157 U/L High 45-117 [facility] Work Phone: [phone] Aspartate aminotransferase (AST) 22 U/L Invalid Interpretation Code 15-37 [facility] Work Phone: [phone] Bilirubin (direct) 0.13 mg/dL Invalid Interpretation Code 0.00-0.30 [facility] Work Phone: [phone] Bilirubin (total) 0.60 mg/dL Invalid Interpretation Code 0.20-1.00 [facility] Work Phone: [phone] Globulin 4.2 g/dL Invalid Interpretation Code 2.2-4.2 [facility] Work Phone: [phone] Protein 7.9 g/dL Invalid Interpretation Code 6.4-8.2 [facility] Work Phone: [phone] Clinical Lists Update: Prelo photoflash powder mixer 03-13-2017 Albumin mass conc 3.9 g/dL [facility] Work Phone: [phone] Alkaline phosphatase (ALP) 141 U/L High [facility] Work Phone: [phone] ALP enzyme act/vol (Bld) 141 U/L High [facility] Work Phone: [phone] ALT enzyme act/vol 36 U/L [facility] Work Phone: [phone] Anion gap 5 mmol/L Invalid Interpretation Code [facility] Work Phone: [phone] Anion gap molar conc 5 mmol/L [facility] Work Phone: [phone] AST enzyme act/vol 23 U/L [facility] Work Phone: [phone] Bilirubin mass conc 0.50 mg/dL [facility] Work Phone: [phone] Bilirubin.direct mass conc 0.11 mg/dL [facility] Work Phone: [phone] Calcium mass conc 8.9 mg/dL Invalid Interpretation Code [facility] Work Phone: [phone] Chloride molar conc 109 mmol/L High [facility] Work Phone: [phone] Cholesterol in HDL mass conc 39 mg/dL Low [facility] Work Phone: [phone] Cholesterol in LDL mass conc 51 mg/dL [facility] Work Phone: [phone] Cholesterol mass conc 111 mg/dL [facility] Work Phone: [phone] CO2 29.0 mmol/L Invalid Interpretation Code [facility] Work Phone: [phone] CO2 ppres (BldV) 29.0 mmol/L [facility] Work Phone: [phone] Creatinine mass conc 0.77 mg/dL Invalid Interpretation Code [facility] Work Phone: [phone] Globulin 4.0 g/dL High [facility] Work Phone: [phone] Globulin mass conc (S) 4.0 g/dL High [facility] Work Phone: [phone] Glucose 99 mg/dL Invalid Interpretation Code [facility] Work Phone: [phone] Glucose mass conc 99 mg/dL [facility] Work Phone: [phone] Lipoprotein.pre-beta mass conc 21 mg/dL [facility] Work Phone: [phone] Potassium molar conc 3.9 mmol/L Invalid Interpretation Code [facility] Work Phone: [phone] Protein mass conc 7.9 g/dL [facility] Work Phone: [phone] Sodium molar conc 143 mmol/L Invalid Interpretation Code [facility] Work Phone: [phone] Triglyceride mass conc 105 mg/dL [facility] Work Phone: [phone] Urea nitrogen mass conc 16 mg/dL Invalid Interpretation Code [facility] Work Phone: [phone] Urea nitrogen/Creatinine mass ratio 20.9 mg/mg High [facility] Work Phone: [phone] Lab Report: Basic Metabolic Profile (BMP)on 03-13-2017 eGFR (non-black) 110 mL/min/{1.73_m2} Invalid Interpretation Code >60 [facility] Work Phone: [phone] eGFR (non-black) 134 mL/min/{1.73_m2} Invalid Interpretation Code >60 [facility] Work Phone: [phone] EST GFR - AA 134 mL/min >60 [facility] Work Phone: [phone] Lab Report: Liver Profileon 03-13-2017 Globulin 4.0 g/dL High 2.3-3.5 [facility] Work Phone: [phone] Globulin mass conc (S) 4.0 g/dL High 2.3-3.5 [facility] Work Phone: [phone] External Other: Preferred Me thod of Contacton 02-22-2017 methcontact secmsg [facility] Work Phone: [phone] Patient's prefered method of contact secmsg Invalid Interpretation Code [facility] Work Phone: [phone] Office Visiton 02-22-2017 Dietary management education, guidance, and counseling (procedure) yes Invalid Interpretation Code [facility] Work Phone: [phone] Documentation of current medications (procedure) Done Invalid Interpretation Code [facility] Work Phone: [phone] Fall risk assessment No Invalid Interpretation Code [facility] Work Phone: [phone] Protein mass conc Done [facility] Work Phone: [phone] Tobacco smoking status ALIS Tobacco smoking status ALIS Invalid Interpretation Code [facility] Work Phone: [phone] Tobacco smoking status [facility] Current every day smoker [facility] Work Phone: [phone] Tobacco use [facility] Current every day smoker Invalid Interpretation Code [facility] Work Phone: [phone] Replaced Document: [employer] E CG Observationson 02-22-2017 EKG QRS axis 33 deg [facility] Work Phone: [phone] electrocardiogram interpretation Sinus Bradycardia - Nonspecific T-abnormality. ABNORMAL Invalid Interpretation Code [facility] Work Phone: [phone] GE use only - for [employer] import when terms are not otherwise specified 410 ms Invalid Interpretation Code [facility] Work Phone: [phone] Interpretation Sinus Bradycardia - Nonspecific T-abnormality. ABNORMAL [facility] Work Phone: [phone] P [place] 53 deg [facility] Work Phone: [phone] P wave axis, electrocardiogram 53 deg Invalid Interpretation Code [facility] Work Phone: [phone] FL Interval 134 ms [employer] Work Phone: [phone] FL interval, electrocardiogram 134 ms Invalid Interpretation Code [facility] Work Phone: [phone] Pulse (Heart Rate) 55 /min Invalid Interpretation Code [facility] Work Phone: [phone] QRS axis, electrocardiogram 33 deg Invalid Interpretation Code [facility] Work Phone: [phone] QRS Duration 96 ms [employer] Work Phone: [phone] QRS duration, electrocardiogram 96 ms Invalid Interpretation Code [employer] Work Phone: [phone] QT Interval new path ms [employer] Work Phone: [phone] QT interval, electrocardiogram new path ms Invalid Interpretation Code [employer] Work Phone: [phone] QTc Guidry 410 ms [employer] Work Phone: [phone] T [place] 90 deg [employer] Work Phone: [phone] T wave axis, electrocardiogram 90 deg Invalid Interpretation Code [employer] Work Phone: [phone] 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 [facility] Work Phone: Laboratory - Microbiology an d Antimicrobial susceptibility Bacteria identified Cx Nom (Bld) No growth in 5 days. [facility] Work Phone: Vital Signs Date Time Vital Sign Value Performing Clinician Danya lopez 06-03-2025 15:45-0400 Body height 170.[address] Connie Sun MD Work Phone: [facility] 06-03-2025 15:45-0400 Body mass index (BMI) [Ratio] 28.3 kg/m2 Dr. Connie Sun MD Work Phone: [facility] 06-03-2025 15:45-0400 Body temperature 98.1 [degF] Dr. Connie Sun MD Work Phone: [facility] 06-03-2025 15:45-0400 Body weight 82.[address] Connie Sun MD Work Phone: [facility] 06-03-2025 15:45-0400 Diastolic blood pressure 72 mm[Hg] Dr. Connie Sun MD Work Phone: [facility] 06-03-2025 15:45-0400 Heart rate 50 /min Dr. Connie Sun MD Work Phone: [phone] [place] [address] 06-03-2025 15:45-0400 Respiratory rate 18 /min Dr. Connie Sun MD Work Phone: [phone] [place] [address] 06-03-2025 15:45-0400 SaO2% (BldA) [Mass fraction] 95 % Dr. Connie Sun MD Work Phone: [facility] 06-03-2025 15:45-0400 Systolic blood pressure 114 mm[Hg] Dr. Connie Sun MD Work Phone: [facility] 03-04-2025 11:14-0400 Body height 170.[address] Connie Sun MD Work Phone: [facility] 03-04-2025 11:11-0400 Body mass index (BMI) [Ratio] 29 kg/m2 Dr. Connie Sun MD Work Phone: [facility] 03-04-2025 11:11-0400 Body temperature 98.2 [degF] Dr. Connie Sun MD Work Phone: [facility] 03-04-2025 11:11-0400 Body weight 83.[address] Connie Sun MD Work Phone: [facility] 03-04-2025 11:11-0400 Diastolic blood pressure 65 mm[Hg] Dr. Connie Sun MD Work Phone: [facility] 03-04-2025 11:11-0400 Heart rate 44 /min Dr. Connie Sun MD Work Phone: [facility] 03-04-2025 11:11-0400 Respiratory rate 18 /min Dr. Connie Sun MD Work Phone: [facility] 03-04-2025 11:11-0400 SaO2% (BldA) [Mass fraction] 96 % Dr. Connie Sun MD Work Phone: [facility] 03-04-2025 11:11-0400 Systolic blood pressure 105 mm[Hg] Dr. Connie Sun MD Work Phone: [facility] 12-04-2024 13:52-0400 Body mass index (BMI) [Ratio] 28.7 kg/m2 Dr. Connie Sun MD Work Phone: [facility] 12-04-2024 13:52-0400 Body temperature 97.4 [degF] Dr. Connie Sun MD Work Phone: [facility] 12-04-2024 13:52-0400 Body weight 83.[address] Connie Sun MD Work Phone: [facility] 12-04-2024 13:52-0400 Diastolic blood pressure 69 mm[Hg] Dr. Connie Sun MD Work Phone: [facility] 12-04-2024 13:52-0400 Heart rate 52 /min Dr. Connie Sun MD Work Phone: [facility] 12-04-2024 13:52-0400 Respiratory rate 18 /min Dr. Connie Sun MD Work Phone: [facility] 12-04-2024 13:52-0400 SaO2% (BldA) [Mass fraction] 94 % Dr. Connie Sun MD Work Phone: [facility] 12-04-2024 13:52-0400 Systolic blood pressure 110 mm[Hg] Dr. Connie Sun MD Work Phone: [facility] 10-31-2024 09:40-0400 Body height 170.[address] Connie Sun MD Work Phone: [facility] 10-31-2024 09:40-0400 Body mass index (BMI) [Ratio] 28.1 kg/m2 Dr. Connie Sun MD Work Phone: [facility] 10-31-2024 09:40-0400 Body temperature 96.9 [degF] Dr. Connie Sun MD Work Phone: [facility] 10-31-2024 09:40-0400 Body weight 81.[address] Connie Sun MD Work Phone: [facility] 10-31-2024 09:40-0400 Diastolic blood pressure 72 mm[Hg] Dr. Connie Sun MD Work Phone: [facility] 10-31-2024 09:40-0400 Heart rate 48 /min Dr. Connie Sun MD Work Phone: [facility] 10-31-2024 09:40-0400 Respiratory rate 16 /min Dr. Connie Sun MD Work Phone: [facility] 10-31-2024 09:40-0400 SaO2% (BldA) [Mass fraction] 96 % Dr. Connie Sun MD Work Phone: [facility] 10-31-2024 09:40-0400 Systolic blood pressure 105 mm[Hg] Dr. Connie Sun MD Work Phone: [facility] 12-13-2023 13:52-0400 Diastolic blood pressure 62 mm[Hg] Dr. Connie Sun Work Phone: [facility] 12-13-2023 13:52-0400 Systolic blood pressure 90 mm[Hg] Dr. Connie Sun Work Phone: [facility] 12-13-2023 13:46-0400 Body height 170.[address] Connie Sun Work Phone: [facility] 12-13-2023 13:46-0400 Body mass index (BMI) [Ratio] 27.7 kg/m2 Dr. Connie Sun Work Phone: [facility] 12-13-2023 13:46-0400 Body temperature 98 [degF] Dr. Connie Sun Work Phone: [facility] 12-13-2023 13:46-0400 Body weight 80.[address] Connie Sun Work Phone: [facility] 12-13-2023 13:46-0400 Heart rate 73 /min Dr. Connie Sun Work Phone: [facility] 12-13-2023 13:46-0400 Respiratory rate 17 /min Dr. Connie Sun Work Phone: [facility] 12-13-2023 13:46-0400 SaO2% (BldA) [Mass fraction] 95 % Dr. Connie Sun Work Phone: [facility] 12-07-2023 12:01-0400 Body height 170.[address] Connie Sun Work Phone: [facility] 12-07-2023 12:01-0400 Body weight 79.[address] Connie Sun Work Phone: [facility] 12-07-2023 09:32-0400 Heart rate 62 /min Dr. Connie Sun Work Phone: [facility] 12-07-2023 08:32-0400 Body temperature 98.3 [degF] Dr. Connie Sun Work Phone: [facility] 12-07-2023 08:32-0400 Diastolic blood pressure 78 mm[Hg] Dr. Connie Sun Work Phone: [facility] 12-07-2023 08:32-0400 Respiratory rate 16 /min Dr. Connie Sun Work Phone: [facility] 12-07-2023 08:32-0400 SaO2% (BldA) [Mass fraction] 99 % Dr. Connie Sun Work Phone: [facility] 12-07-2023 08:32-0400 Systolic blood pressure 128 mm[Hg] Dr. Connie Sun Work Phone: [facility] 12-06-2023 22:35-0400 Body mass index (BMI) [Ratio] 27.3 kg/m2 Dr. Connie Sun Work Phone: [facility] 12-06-2023 22:00-0400 Diastolic blood pressure 47 mm[Hg] Dr. Connie Sun Work Phone: [facility] 12-06-2023 22:00-0400 Heart rate 70 /min Dr. Connie Sun Work Phone: [facility] 12-06-2023 22:00-0400 Respiratory rate 18 /min Dr. Connie Sun Work Phone: [facility] 12-06-2023 22:00-0400 Systolic blood pressure 97 mm[Hg] Dr. Connie Sun Work Phone: [facility] 12-06-2023 20:34-0400 SaO2% (BldA) [Mass fraction] 98 % Dr. Connie Sun Work Phone: [facility] 12-06-2023 19:58-0400 Body temperature 97.9 [degF] Dr. Connie Sun Work Phone: [facility] 12-06-2023 15:20-0400 Body height 170.[address] Connie Sun Work Phone: [facility] 12-06-2023 15:20-0400 Body mass index (BMI) [Ratio] 27.2 kg/m2 Dr. Connie Sun Work Phone: [facility] 12-06-2023 15:20-0400 Body weight 78.[address] Connie Sun Work Phone: [facility] 12-06-2023 10:55-0400 Body mass index (BMI) [Ratio] 27.1 kg/m2 Dr. Connie Sun Work Phone: [facility] 12-06-2023 10:55-0400 Body temperature 97.5 [degF] Dr. Connie Sun Work Phone: [facility] 12-06-2023 10:55-0400 Body weight 78.[address] Connie Sun Work Phone: [facility] 12-06-2023 10:55-0400 Diastolic blood pressure 81 mm[Hg] Dr. Connie Sun Work Phone: [facility] 12-06-2023 10:55-0400 Heart rate 67 /min Dr. Connie Sun Work Phone: [facility] 12-06-2023 10:55-0400 Respiratory rate 16 /min Dr. Connie Sun Work Phone: [facility] 12-06-2023 10:55-0400 SaO2% (BldA) [Mass fraction] 100 % Dr. Connie Sun Work Phone: [facility] 12-06-2023 10:55-0400 Systolic blood pressure 126 mm[Hg] Dr. Connie Sun Work Phone: [facility] 10-24-2023 11:24-0400 Body mass index (BMI) [Ratio] 30 kg/m2 Dr. Connie Sun Work Phone: [facility] 10-24-2023 11:24-0400 Body weight 87.[address] Connie Sun Work Phone: [facility] 10-24-2023 11:24-0400 Diastolic blood pressure 73 mm[Hg] Dr. Connie Sun Work Phone: [facility] 10-24-2023 11:24-0400 Heart rate 62 /min Dr. Connie Sun Work Phone: [facility] 10-24-2023 11:24-0400 Respiratory rate 18 /min Dr. Connie Sun Work Phone: [facility] 10-24-2023 11:24-0400 SaO2% (BldA) [Mass fraction] 93 % Dr. Connie Sun Work Phone: [facility] 10-24-2023 11:24-0400 Systolic blood pressure 116 mm[Hg] Dr. Connie Sun Work Phone: [facility] 09-04-2023 09:34-0500 Body height 170.[address] Connie Sun Work Phone: [facility] 09-04-2023 09:32-0500 Body mass index (BMI) [Ratio] 29.4 kg/m2 Dr. Connie Sun Work Phone: [facility] 09-04-2023 09:32-0500 Body temperature 98.1 [degF] Dr. Connie Sun Work Phone: [facility] 09-04-2023 09:32-0500 Body weight 85.[address] Connie Sun Work Phone: [facility] 09-04-2023 09:32-0500 Diastolic blood pressure 75 mm[Hg] Dr. Connie Sun Work Phone: [facility] 09-04-2023 09:32-0500 Heart rate 59 /min Dr. Connie Sun Work Phone: [facility] 09-04-2023 09:32-0500 Respiratory rate 18 /min Dr. Connie Sun Work Phone: [facility] 09-04-2023 09:32-0500 SaO2% (BldA) [Mass fraction] 95 % Dr. Connie Sun Work Phone: [facility] 09-04-2023 09:32-0500 Systolic blood pressure 117 mm[Hg] Dr. Connie Sun Work Phone: [facility] 05-07-2023 10:02-0400 Body height 170.18 cm RN IV THERAPY-C Pastora Tarun Work Phone: [facility] 05-07-2023 10:02-0400 Body mass index (BMI) [Ratio] 29 kg/m2 RN IV THERAPY-C Pastora Tarun Work Phone: [facility] 05-07-2023 10:02-0400 Body temperature 98.1 [degF] RN IV THERAPY-C Pastora Tarun Work Phone: [facility] 05-07-2023 10:02-0400 Body weight 84.02 kg RN IV THERAPY-C Pastora Tarun Work Phone: [facility] 05-07-2023 10:02-0400 Diastolic blood pressure 66 mm[Hg] RN IV THERAPY-C Pastora Tarun Work Phone: [facility] 05-07-2023 10:02-0400 Heart rate 48 /min RN IV THERAPY-C Pastoar Tarun Work Phone: [facility] 05-07-2023 10:02-0400 Respiratory rate 16 /min RN IV THERAPY-C Pastora Tarun Work Phone: [facility] 05-07-2023 10:02-0400 SaO2% (BldA) [Mass fraction] 93 % RN IV THERAPY-C Pastora Tarun Work Phone: [facility] 05-07-2023 10:02-0400 Systolic blood pressure 104 mm[Hg] DAVID Mcneil Work Phone: [facility] 01-24-2023 13:23-0400 Body height 170.[address] George Cutler Work Phone: [facility] 01-24-2023 13:23-0400 Body mass index (BMI) [Ratio] 27.6 kg/m2 Dr. George Cutler Work Phone: [facility] 01-24-2023 13:23-0400 Body temperature 98.3 [degF] Dr. George Cutler Work Phone: [facility] 01-24-2023 13:23-0400 Body weight 79.[address] George Cutler Work Phone: [facility] 01-24-2023 13:23-0400 Diastolic blood pressure 65 mm[Hg] Dr. George Cutler Work Phone: [facility] 01-24-2023 13:23-0400 Heart rate 59 /min Dr. George Cutler Work Phone: [facility] 01-24-2023 13:23-0400 Respiratory rate 15 /min Dr. George Cutler Work Phone: [facility] 01-24-2023 13:23-0400 SaO2% (BldA) [Mass fraction] 98 % Dr. George Cutler Work Phone: [facility] 01-24-2023 13:23-0400 Systolic blood pressure 99 mm[Hg] Dr. George Cutler Work Phone: [facility] 12-27-2022 15:03-0400 Body height 170.[address] George Cutler Work Phone: [facility] 12-27-2022 15:03-0400 Body mass index (BMI) [Ratio] 26.4 kg/m2 Dr. George Cutler Work Phone: [facility] 12-27-2022 15:03-0400 Body weight 76.[address] George Cutler Work Phone: [facility] 12-27-2022 15:03-0400 Diastolic blood pressure 59 mm[Hg] Dr. George Cutler Work Phone: [facility] 12-27-2022 15:03-0400 Heart rate 58 /min Dr. George Cutler Work Phone: [facility] 12-27-2022 15:03-0400 Respiratory rate 18 /min Dr. George Cutler Work Phone: [facility] 12-27-2022 15:03-0400 SaO2% (BldA) [Mass fraction] 98 % Dr. George Cutler Work Phone: [facility] 12-27-2022 15:03-0400 Systolic blood pressure 109 mm[Hg] Dr. George Cutler Work Phone: [facility] 10-25-2022 13:50-0400 Body mass index (BMI) [Ratio] 27.3 kg/m2 Dr. George Cutler Work Phone: [facility] 10-25-2022 13:50-0400 Body temperature 97.6 [degF] Dr. George Cutler Work Phone: [facility] 10-25-2022 13:50-0400 Body weight 79.[address] George Cutler Work Phone: [facility] 10-25-2022 13:50-0400 Diastolic blood pressure 70 mm[Hg] Dr. George Cutler Work Phone: [facility] 10-25-2022 13:50-0400 Heart rate 57 /min Dr. George Cutler Work Phone: [facility] 10-25-2022 13:50-0400 Respiratory rate 16 /min Dr. George Cutler Work Phone: [facility] 10-25-2022 13:50-0400 SaO2% (BldA) [Mass fraction] 97 % Dr. George Cutler Work Phone: [facility] 10-25-2022 13:50-0400 Systolic blood pressure 110 mm[Hg] Dr. George Cutler Work Phone: [facility] 07-26-2022 13:07-0500 Body weight 72.[address] George Cutler Work Phone: [facility] 07-05-2022 14:29-0500 Body height 170.[address] George Cutler Work Phone: [facility] Work Phone: 07-05-2022 14:29-0500 Body mass index (BMI) [Ratio] 25 kg/m2 Dr. George Cutler Work Phone: [facility] Work Phone: 07-05-2022 14:29-0500 Body temperature 97.1 [degF] Dr. George Cutler Work Phone: [facility] Work Phone: 07-05-2022 14:29-0500 Body weight 72.[address] George Cutler Work Phone: [facility] Work Phone: 07-05-2022 14:29-0500 Diastolic blood pressure 65 mm[Hg] Dr. George Cutler Work Phone: [facility] Work Phone: 07-05-2022 14:29-0500 Heart rate 74 /min Dr. George Cutler Work Phone: [facility] Work Phone: 07-05-2022 14:29-0500 Respiratory rate 16 /min Dr. George Cutler Work Phone: [facility] Work Phone: 07-05-2022 14:29-0500 SaO2% (BldA) [Mass fraction] 97 % Dr. George Cutler Work Phone: [facility] Work Phone: 07-05-2022 14:29-0500 Systolic blood pressure 102 mm[Hg] Dr. George Cutler Work Phone: [facility] Work Phone: 06-14-2022 11:19-0400 Body mass index (BMI) [Ratio] 25.2 kg/m2 Dr. George Cutler Work Phone: [facility] Work Phone: 06-14-2022 11:19-0400 Body temperature 97.1 [degF] Dr. George Cutler Work Phone: [facility] Work Phone: 06-14-2022 11:19-0400 Body weight 73.[address] George Cutler Work Phone: [facility] Work Phone: 06-14-2022 11:19-0400 Diastolic blood pressure 72 mm[Hg] Dr. George Cutler Work Phone: [facility] Work Phone: 06-14-2022 11:19-0400 Heart rate 65 /min Dr. George Cutler Work Phone: [facility] Work Phone: 06-14-2022 11:19-0400 Respiratory rate 16 /min Dr. George Cutler Work Phone: [facility] Work Phone: 06-14-2022 11:19-0400 SaO2% (BldA) [Mass fraction] 97 % Dr. George Cutler Work Phone: [facility] Work Phone: 06-14-2022 11:19-0400 Systolic blood pressure 106 mm[Hg] Dr. George Cutler Work Phone: [facility] Work Phone: 06-14-2022 11:03-0400 Body weight 73.[address] George Cutler Work Phone: [facility] Work Phone: 06-13-2022 10:52-0400 Body mass index (BMI) [Ratio] 25.2 kg/m2 Dr. George Cutler Work Phone: [facility] Work Phone: 06-13-2022 10:52-0400 Body weight 73.[address] George Cutler Work Phone: [facility] Work Phone: 06-13-2022 10:52-0400 Diastolic blood pressure 73 mm[Hg] Dr. George Cutler Work Phone: [facility] Work Phone: 06-13-2022 10:52-0400 Heart rate 71 /min Dr. George Cutler Work Phone: [facility] Work Phone: 06-13-2022 10:52-0400 Respiratory rate 18 /min Dr. George Cutler Work Phone: [facility] Work Phone: 06-13-2022 10:52-0400 SaO2% (BldA) [Mass fraction] 98 % Dr. George Cutler Work Phone: [facility] Work Phone: 06-13-2022 10:52-0400 Systolic blood pressure 114 mm[Hg] Dr. George Cutler Work Phone: [facility] Work Phone: 05-30-2022 11:00-0400 Body mass index (BMI) [Ratio] 25.4 kg/m2 Dr. George Cutler Work Phone: [facility] Work Phone: 05-30-2022 11:00-0400 Body temperature 97.6 [degF] Dr. George Cutler Work Phone: [facility] Work Phone: 05-30-2022 11:00-0400 Body weight 73.[address] George Cutler Work Phone: [facility] Work Phone: 05-30-2022 11:00-0400 Diastolic blood pressure 73 mm[Hg] Dr. George Cutler Work Phone: [facility] Work Phone: 05-30-2022 11:00-0400 Heart rate 73 /min Dr. George Cutler Work Phone: [facility] Work Phone: 05-30-2022 11:00-0400 Respiratory rate 18 /min Dr. George Cutler Work Phone: [facility] Work Phone: 05-30-2022 11:00-0400 SaO2% (BldA) [Mass fraction] 98 % Dr. George Cutler Work Phone: [facility] Work Phone: 05-30-2022 11:00-0400 Systolic blood pressure 105 mm[Hg] Dr. George Cutler Work Phone: [facility] Work Phone: 05-26-2022 16:46-0400 Diastolic blood pressure 50 mm[Hg] Dr. George Cutler Work Phone: [facility] 05-26-2022 16:46-0400 Heart rate 70 /min Dr. George Cutler Work Phone: [facility] 05-26-2022 16:46-0400 Respiratory rate 16 /min Dr. George Cutler Work Phone: [facility] 05-26-2022 16:46-0400 SaO2% (BldA) [Mass fraction] 98 % Dr. George Cutler Work Phone: [facility] 05-26-2022 16:46-0400 Systolic blood pressure 88 mm[Hg] Dr. George Cutler Work Phone: [facility] 05-26-2022 11:05-0400 Body temperature 96.5 [degF] Dr. George Cutler Work Phone: [facility] 05-23-2022 10:29-0400 Body mass index (BMI) [Ratio] 25.1 kg/m2 Dr. George Cutler Work Phone: [facility] Work Phone: 05-23-2022 10:29-0400 Body temperature 97 [degF] Dr. George Cutler Work Phone: [facility] Work Phone: 05-23-2022 10:29-0400 Body weight 72.[address] George Cutler Work Phone: [facility] Work Phone: 05-23-2022 10:29-0400 Diastolic blood pressure 62 mm[Hg] Dr. George Cutler Work Phone: [facility] Work Phone: 05-23-2022 10:29-0400 Heart rate 79 /min Dr. George Cutler Work Phone: [facility] Work Phone: 05-23-2022 10:29-0400 Respiratory rate 15 /min Dr. George Cutler Work Phone: [facility] Work Phone: 05-23-2022 10:29-0400 SaO2% (BldA) [Mass fraction] 98 % Dr. George Cutler Work Phone: [facility] Work Phone: 05-23-2022 10:29-0400 Systolic blood pressure 92 mm[Hg] Dr. George Cutler Work Phone: [facility] Work Phone: 05-18-2022 09:25-0400 Body mass index (BMI) [Ratio] 26 kg/m2 Dr. George Cutler Work Phone: [facility] 05-18-2022 08:56-0400 Body mass index (BMI) [Ratio] 26 kg/m2 Dr. George Cutler Work Phone: [facility] Work Phone: 05-18-2022 08:56-0400 Body temperature 97.4 [degF] Dr. George Ctuler Work Phone: [facility] Work Phone: 05-18-2022 08:56-0400 Body weight 75.[address] George Cutler Work Phone: [facility] Work Phone: 05-18-2022 08:56-0400 Diastolic blood pressure 69 mm[Hg] Dr. George Cutler Work Phone: [facility] Work Phone: 05-18-2022 08:56-0400 Heart rate 56 /min Dr. George Cutler Work Phone: [facility] Work Phone: 05-18-2022 08:56-0400 Respiratory rate 16 /min Dr. George Cutler Work Phone: [facility] Work Phone: 05-18-2022 08:56-0400 SaO2% (BldA) [Mass fraction] 98 % Dr. George Cutler Work Phone: [facility] Work Phone: 05-18-2022 08:56-0400 Systolic blood pressure 113 mm[Hg] Dr. George Cutler Work Phone: [facility] Work Phone: 05-09-2022 09:33-0400 Body mass index (BMI) [Ratio] 25.5 kg/m2 Dr. George Cutler Work Phone: [facility] Work Phone: 05-09-2022 09:33-0400 Body temperature 97.8 [degF] Dr. George Cutler Work Phone: [facility] Work Phone: 05-09-2022 09:33-0400 Body weight 73.[address] George Cutler Work Phone: [facility] Work Phone: 05-09-2022 09:33-0400 Diastolic blood pressure 58 mm[Hg] Dr. George Cutler Work Phone: [facility] Work Phone: 05-09-2022 09:33-0400 Heart rate 62 /min Dr. George Cutler Work Phone: [facility] Work Phone: 05-09-2022 09:33-0400 Respiratory rate 16 /min Dr. George Cutler Work Phone: [facility] Work Phone: 05-09-2022 09:33-0400 SaO2% (BldA) [Mass fraction] 99 % Dr. George Cutler Work Phone: [facility] Work Phone: 05-09-2022 09:33-0400 Systolic blood pressure 92 mm[Hg] Dr. George Cutler Work Phone: [facility] Work Phone: 05-04-2022 08:10-0400 Body mass index (BMI) [Ratio] 25.7 kg/m2 Dr. George Cutler Work Phone: [facility] Work Phone: 05-04-2022 08:10-0400 Body temperature 97.4 [degF] Dr. George Cutler Work Phone: [facility] Work Phone: 05-04-2022 08:10-0400 Body weight 74.[address] George Cutler Work Phone: [facility] Work Phone: 05-04-2022 08:10-0400 Diastolic blood pressure 68 mm[Hg] Dr. George Cutler Work Phone: [facility] Work Phone: 05-04-2022 08:10-0400 Heart rate 104 /min Dr. George Cutler Work Phone: [facility] Work Phone: 05-04-2022 08:10-0400 Respiratory rate 16 /min Dr. George Cutler Work Phone: [facility] Work Phone: 05-04-2022 08:10-0400 SaO2% (BldA) [Mass fraction] 100 % Dr. George Cutler Work Phone: [facility] Work Phone: 05-04-2022 08:10-0400 Systolic blood pressure 93 mm[Hg] Dr. George Cutler Work Phone: [facility] Work Phone: 05-02-2022 11:42-0400 Body mass index (BMI) [Ratio] 26.2 kg/m2 Dr. George Cutler Work Phone: [facility] Work Phone: 05-02-2022 11:42-0400 Body weight 75.[address] George Cutler Work Phone: [facility] Work Phone: 05-02-2022 11:42-0400 Diastolic blood pressure 53 mm[Hg] Dr. George Cutler Work Phone: [facility] Work Phone: 05-02-2022 11:42-0400 Heart rate 73 /min Dr. George Cutler Work Phone: [facility] Work Phone: 05-02-2022 11:42-0400 Respiratory rate 14 /min Dr. George Cutler Work Phone: [facility] Work Phone: 05-02-2022 11:42-0400 SaO2% (BldA) [Mass fraction] 99 % Dr. George Cutler Work Phone: [facility] Work Phone: 05-02-2022 11:42-0400 Systolic blood pressure 76 mm[Hg] Dr. George Cutler Work Phone: [facility] Work Phone: 04-27-2022 09:57-0400 Body mass index (BMI) [Ratio] 26.9 kg/m2 Dr. George Cutler Work Phone: [facility] Work Phone: 04-27-2022 09:57-0400 Body temperature 97.5 [degF] Dr. George Cutler Work Phone: [facility] Work Phone: 04-27-2022 09:57-0400 Body weight 78.[address] George Cutler Work Phone: [facility] Work Phone: 04-27-2022 09:57-0400 Diastolic blood pressure 65 mm[Hg] Dr. George Cutler Work Phone: [facility] Work Phone: 04-27-2022 09:57-0400 Heart rate 54 /min Dr. George Cutler Work Phone: [facility] Work Phone: 04-27-2022 09:57-0400 Respiratory rate 16 /min Dr. George Cutler Work Phone: [facility] Work Phone: 04-27-2022 09:57-0400 SaO2% (BldA) [Mass fraction] 97 % Dr. George Cutler Work Phone: [facility] Work Phone: 04-27-2022 09:57-0400 Systolic blood pressure 99 mm[Hg] Dr. George Cutler Work Phone: [facility] Work Phone: 04-20-2022 10:20-0400 Body temperature 98 [degF] Dr. George Cutler Work Phone: [facility] Work Phone: 04-20-2022 10:20-0400 Body weight 76.[address] George Cutler Work Phone: [facility] Work Phone: 04-20-2022 10:20-0400 Diastolic blood pressure 61 mm[Hg] Dr. George Cutler Work Phone: [facility] Work Phone: 04-20-2022 10:20-0400 Heart rate 63 /min Dr. George Cutler Work Phone: [facility] Work Phone: 04-20-2022 10:20-0400 Respiratory rate 18 /min Dr. George Cutler Work Phone: [facility] Work Phone: 04-20-2022 10:20-0400 SaO2% (BldA) [Mass fraction] 100 % Dr. George Cutler Work Phone: [facility] Work Phone: 04-20-2022 10:20-0400 Systolic blood pressure 82 mm[Hg] Dr. George Cutler Work Phone: [facility] Work Phone: 04-12-2022 11:56-0400 Body height 170.[address] George Cutler Work Phone: [facility] Work Phone: 04-12-2022 11:56-0400 Body weight 74.[address] George Cutler Work Phone: [facility] Work Phone: 04-12-2022 10:38-0400 Body temperature 98.4 [degF] Dr. George Cutler Work Phone: [facility] Work Phone: 04-12-2022 10:38-0400 Diastolic blood pressure 72 mm[Hg] Dr. George Cutler Work Phone: [facility] Work Phone: 04-12-2022 10:38-0400 Heart rate 78 /min Dr. George Cutler Work Phone: [facility] Work Phone: 04-12-2022 10:38-0400 Respiratory rate 16 /min Dr. George Cutler Work Phone: [facility] Work Phone: 04-12-2022 10:38-0400 SaO2% (BldA) [Mass fraction] 94 % Dr. George Cutler Work Phone: [facility] Work Phone: 04-12-2022 10:38-0400 Systolic blood pressure 100 mm[Hg] Dr. George Cutler Work Phone: [facility] Work Phone: 04-11-2022 13:09-0400 Body mass index (BMI) [Ratio] 26.6 kg/m2 Dr. George Cutler Work Phone: [facility] Work Phone: 04-10-2022 16:01-0400 Body temperature 97.5 [degF] Dr. George Cutler Work Phone: [facility] Work Phone: 04-10-2022 16:01-0400 Diastolic blood pressure 62 mm[Hg] Dr. George Cutler Work Phone: [facility] Work Phone: 04-10-2022 16:01-0400 Heart rate 77 /min Dr. George Cutler Work Phone: [facility] Work Phone: 04-10-2022 16:01-0400 Respiratory rate 21 /min Dr. George Cutler Work Phone: [facility] Work Phone: 04-10-2022 16:01-0400 SaO2% (BldA) [Mass fraction] 93 % Dr. George Cutler Work Phone: [facility] Work Phone: 04-10-2022 16:01-0400 Systolic blood pressure 87 mm[Hg] Dr. George Cutler Work Phone: [facility] Work Phone: 04-10-2022 11:13-0400 Body height 170.[address] George Cutler Work Phone: [facility] Work Phone: 04-10-2022 11:13-0400 Body mass index (BMI) [Ratio] 26.7 kg/m2 Dr. George Cutler Work Phone: [facility] Work Phone: 04-10-2022 11:13-0400 Body weight 77.[address] George Cutler Work Phone: [facility] Work Phone: 04-07-2022 15:49-0400 Body temperature 96.4 [degF] Dr. George Cutler Work Phone: [facility] Work Phone: 04-07-2022 15:49-0400 Diastolic blood pressure 58 mm[Hg] Dr. George Cutler Work Phone: [facility] Work Phone: 04-07-2022 15:49-0400 Heart rate 71 /min Dr. George Cutler Work Phone: [facility] Work Phone: 04-07-2022 15:49-0400 SaO2% (BldA) [Mass fraction] 96 % Dr. George Cutler Work Phone: [facility] Work Phone: 04-07-2022 15:49-0400 Systolic blood pressure 129 mm[Hg] Dr. George Cutler Work Phone: [facility] Work Phone: 04-06-2022 10:03-0400 Body mass index (BMI) [Ratio] 27.9 kg/m2 Dr. George Cutler Work Phone: [facility] Work Phone: 04-06-2022 10:03-0400 Body weight 80.[address] George Cutler Work Phone: [facility] Work Phone: 04-06-2022 09:20-0400 Body mass index (BMI) [Ratio] 27.9 kg/m2 Dr. George Cutler Work Phone: [facility] Work Phone: 04-06-2022 09:20-0400 Body temperature 97.1 [degF] Dr. George Cutler Work Phone: [facility] Work Phone: 04-06-2022 09:20-0400 Body weight 80.[address] George Cutler Work Phone: [facility] Work Phone: 04-06-2022 09:20-0400 Diastolic blood pressure 75 mm[Hg] Dr. George Cutler Work Phone: [facility] Work Phone: 04-06-2022 09:20-0400 Heart rate 64 /min Dr. George Cutler Work Phone: [facility] Work Phone: 04-06-2022 09:20-0400 Respiratory rate 15 /min Dr. George Cutler Work Phone: [facility] Work Phone: 04-06-2022 09:20-0400 SaO2% (BldA) [Mass fraction] 98 % Dr. George Cutler Work Phone: [facility] Work Phone: 04-06-2022 09:20-0400 Systolic blood pressure 117 mm[Hg] Dr. George Cutler Work Phone: [facility] Work Phone: 03-30-2022 14:30-0400 Body mass index (BMI) [Ratio] 27.8 kg/m2 Dr. George Cutler Work Phone: [facility] Work Phone: 03-30-2022 14:30-0400 Body temperature 98.4 [degF] Dr. George Cutler Work Phone: [facility] Work Phone: 03-30-2022 14:30-0400 Body weight 80.[address] George Cutler Work Phone: [facility] Work Phone: 03-30-2022 14:30-0400 Diastolic blood pressure 72 mm[Hg] Dr. George Cutler Work Phone: [facility] Work Phone: 03-30-2022 14:30-0400 Heart rate 51 /min Dr. Geogre Cutler Work Phone: [facility] Work Phone: 03-30-2022 14:30-0400 Respiratory rate 15 /min Dr. George Cutler Work Phone: [facility] Work Phone: 03-30-2022 14:30-0400 SaO2% (BldA) [Mass fraction] 97 % Dr. George Cutler Work Phone: [facility] Work Phone: 03-30-2022 14:30-0400 Systolic blood pressure 117 mm[Hg] Dr. George Cutler Work Phone: [facility] Work Phone: 03-17-2022 15:37-0400 Respiratory rate 16 /min Dr. George Cutler Work Phone: [facility] Work Phone: 03-16-2022 09:48-0400 Body mass index (BMI) [Ratio] 29.2 kg/m2 Dr. George Cutler Work Phone: [facility] Work Phone: 03-16-2022 09:48-0400 Body temperature 98.1 [degF] Dr. George Cutler Work Phone: [facility] Work Phone: 03-16-2022 09:48-0400 Body weight 82.[address] George Cutler Work Phone: [facility] Work Phone: 03-16-2022 09:48-0400 Diastolic blood pressure 85 mm[Hg] Dr. George Cutler Work Phone: [facility] Work Phone: 03-16-2022 09:48-0400 Heart rate 51 /min Dr. George Cutler Work Phone: [facility] Work Phone: 03-16-2022 09:48-0400 Respiratory rate 16 /min Dr. George Cutler Work Phone: [facility] Work Phone: 03-16-2022 09:48-0400 SaO2% (BldA) [Mass fraction] 95 % Dr. George Cutler Work Phone: [facility] Work Phone: 03-16-2022 09:48-0400 Systolic blood pressure 133 mm[Hg] Dr. George Cutler Work Phone: [facility] Work Phone: 03-08-2022 12:45-0400 Body temperature 96.9 [degF] Dr. George Cutler Work Phone: [facility] Work Phone: 03-08-2022 12:45-0400 Diastolic blood pressure 75 mm[Hg] Dr. George Cutler Work Phone: [facility] Work Phone: 03-08-2022 12:45-0400 Heart rate 62 /min Dr. George Cutler Work Phone: [facility] Work Phone: 03-08-2022 12:45-0400 Respiratory rate 16 /min Dr. George Cutler Work Phone: [facility] Work Phone: 03-08-2022 12:45-0400 SaO2% (BldA) [Mass fraction] 98 % Dr. George Cutler Work Phone: [facility] Work Phone: 03-08-2022 12:45-0400 Systolic blood pressure 112 mm[Hg] Dr. George Cutler Work Phone: [facility] Work Phone: 03-08-2022 09:55-0400 Body height 170.[address] George Cutler Work Phone: [facility] Work Phone: 03-08-2022 09:55-0400 Body mass index (BMI) [Ratio] 28.3 kg/m2 Dr. George Cutler Work Phone: [facility] Work Phone: 03-08-2022 09:55-0400 Body weight 82.[address] George Cutler Work Phone: [facility] Work Phone: 03-06-2022 10:00-0400 Body mass index (BMI) [Ratio] 29.2 kg/m2 Dr. George Cutler Work Phone: [facility] Work Phone: 03-06-2022 10:00-0400 Body temperature 97.8 [degF] Dr. George Cutler Work Phone: [facility] Work Phone: 03-06-2022 10:00-0400 Body weight 82.[address] George Cutler Work Phone: [facility] Work Phone: 03-06-2022 10:00-0400 Diastolic blood pressure 82 mm[Hg] Dr. George Cutler Work Phone: [facility] Work Phone: 03-06-2022 10:00-0400 Heart rate 84 /min Dr. George Cutler Work Phone: [facility] Work Phone: 03-06-2022 10:00-0400 Respiratory rate 15 /min Dr. George Cutler Work Phone: [facility] Work Phone: 03-06-2022 10:00-0400 SaO2% (BldA) [Mass fraction] 96 % Dr. George Cutler Work Phone: [facility] Work Phone: 03-06-2022 10:00-0400 Systolic blood pressure 125 mm[Hg] Dr. George Cutler Work Phone: [facility] Work Phone: 03-03-2022 09:38-0400 Body mass index (BMI) [Ratio] 29.4 kg/m2 Dr. George Cutler Work Phone: [facility] Work Phone: 03-03-2022 09:38-0400 Body temperature 97.2 [degF] Dr. George Cutler Work Phone: [facility] Work Phone: 03-03-2022 09:38-0400 Body weight 82.[address] George Cutler Work Phone: [facility] Work Phone: 03-03-2022 09:38-0400 Diastolic blood pressure 70 mm[Hg] Dr. George Cutler Work Phone: [facility] Work Phone: 03-03-2022 09:38-0400 Heart rate 53 /min Dr. George Cutler Work Phone: [facility] Work Phone: 03-03-2022 09:38-0400 Respiratory rate 18 /min Dr. George Cutler Work Phone: [facility] Work Phone: 03-03-2022 09:38-0400 SaO2% (BldA) [Mass fraction] 98 % Dr. George Cutler Work Phone: [facility] Work Phone: 03-03-2022 09:38-0400 Systolic blood pressure 121 mm[Hg] Dr. George Cutler Work Phone: [facility] Work Phone: 03-01-2022 10:08-0400 Body mass index (BMI) [Ratio] 29.3 kg/m2 Dr. George Cutler Work Phone: [facility] Work Phone: 03-01-2022 10:08-0400 Body temperature 97.8 [degF] Dr. George Cutler Work Phone: [facility] Work Phone: 03-01-2022 10:08-0400 Body weight 82.[address] George Cutler Work Phone: [facility] Work Phone: 03-01-2022 10:08-0400 Diastolic blood pressure 73 mm[Hg] Dr. George Cutler Work Phone: [facility] Work Phone: 03-01-2022 10:08-0400 Heart rate 51 /min Dr. George Cutler Work Phone: [facility] Work Phone: 03-01-2022 10:08-0400 Respiratory rate 17 /min Dr. George Cutler Work Phone: [facility] Work Phone: 03-01-2022 10:08-0400 SaO2% (BldA) [Mass fraction] 96 % Dr. George Cutler Work Phone: [facility] Work Phone: 03-01-2022 10:08-0400 Systolic blood pressure 105 mm[Hg] Dr. George Cutler Work Phone: [facility] Work Phone: 02-27-2022 11:23-0400 Body mass index (BMI) [Ratio] 29.3 kg/m2 Dr. George Cutler Work Phone: [facility] Work Phone: 02-27-2022 11:23-0400 Body temperature 97.1 [degF] Dr. George Cutler Work Phone: [facility] Work Phone: 02-27-2022 11:23-0400 Body weight 82.[address] George Cutler Work Phone: [facility] Work Phone: 02-27-2022 11:23-0400 Diastolic blood pressure 79 mm[Hg] Dr. George Cutler Work Phone: [facility] Work Phone: 02-27-2022 11:23-0400 Heart rate 52 /min Dr. George Cutler Work Phone: [facility] Work Phone: 02-27-2022 11:23-0400 Respiratory rate 16 /min Dr. George Cutler Work Phone: [facility] Work Phone: 02-27-2022 11:23-0400 SaO2% (BldA) [Mass fraction] 96 % Dr. George Cutler Work Phone: [facility] Work Phone: 02-27-2022 11:23-0400 Systolic blood pressure 124 mm[Hg] Dr. George Cutler Work Phone: [facility] Work Phone: 01-27-2022 12:06-0400 Body temperature 97.7 [degF] Aleksey Campa DO Work Phone: [facility] 01-27-2022 12:06-0400 Diastolic blood pressure 68 mm[Hg] Aleksey Campa DO Work Phone: [facility] 01-27-2022 12:06-0400 Heart rate 61 /min Aleksey Campa DO Work Phone: [facility] 01-27-2022 12:06-0400 Respiratory rate 18 /min Aleksey Campa DO Work Phone: [facility] 01-27-2022 12:06-0400 SaO2% (BldA) [Mass fraction] 91 % Aleksey Campa DO Work Phone: [facility] 01-27-2022 12:06-0400 Systolic blood pressure 113 mm[Hg] Aleksey Campa DO Work Phone: [facility] 01-04-2022 13:57-0400 Body mass index (BMI) [Ratio] 29.7 kg/m2 Dr. George Cutler Work Phone: [facility] Work Phone: 01-04-2022 13:57-0400 Body temperature 97.9 [degF] Dr. George Cutler Work Phone: [facility] Work Phone: 01-04-2022 13:57-0400 Body weight 83.[address] George Cutler Work Phone: [facility] Work Phone: 01-04-2022 13:57-0400 Diastolic blood pressure 65 mm[Hg] Dr. George Cutler Work Phone: [facility] Work Phone: 01-04-2022 13:57-0400 Heart rate 55 /min Dr. George Cutler Work Phone: [facility] Work Phone: 01-04-2022 13:57-0400 Respiratory rate 16 /min Dr. George Cutler Work Phone: [facility] Work Phone: 01-04-2022 13:57-0400 SaO2% (BldA) [Mass fraction] 96 % Dr. George Cutler Work Phone: [facility] Work Phone: 01-04-2022 13:57-0400 Systolic blood pressure 105 mm[Hg] Dr. George Cutler Work Phone: [facility] Work Phone: 12-29-2021 16:35-0400 Body temperature 98.7 [degF] Dr. George Cutler Work Phone: [facility] Work Phone: 12-29-2021 16:35-0400 Diastolic blood pressure 60 mm[Hg] Dr. George Cutler Work Phone: [facility] Work Phone: 12-29-2021 16:35-0400 Heart rate 68 /min Dr. George Cutler Work Phone: [facility] Work Phone: 12-29-2021 16:35-0400 Respiratory rate 16 /min Dr. George Cutler Work Phone: [facility] Work Phone: 12-29-2021 16:35-0400 SaO2% (BldA) [Mass fraction] 91 % Dr. George Cutler Work Phone: [facility] Work Phone: 12-29-2021 16:35-0400 Systolic blood pressure 118 mm[Hg] Dr. George Cutler Work Phone: [facility] Work Phone: 12-29-2021 14:33-0400 Inhaled oxygen flow rate 3 L/min Dr. George Cutler Work Phone: [facility] Work Phone: 12-29-2021 12:24-0400 Body height 167.[address] George Cutler Work Phone: [facility] Work Phone: 12-29-2021 12:24-0400 Body mass index (BMI) [Ratio] 29.7 kg/m2 Dr. George Cutler Work Phone: [facility] Work Phone: 12-29-2021 12:24-0400 Body weight 83.[address] George Cutler Work Phone: [facility] Work Phone: 12-26-2021 10:01-0400 Body mass index (BMI) [Ratio] 29.8 kg/m2 Dr. George Cutler Work Phone: [facility] Work Phone: 12-26-2021 10:01-0400 Body temperature 97.5 [degF] Dr. George Cutler Work Phone: [facility] Work Phone: 12-26-2021 10:01-0400 Body weight 83.[address] George Cutler Work Phone: [facility] Work Phone: 12-26-2021 10:01-0400 Diastolic blood pressure 73 mm[Hg] Dr. Goerge Cutler Work Phone: [facility] Work Phone: 12-26-2021 10:01-0400 Heart rate 47 /min Dr. George Cutler Work Phone: [facility] Work Phone: 12-26-2021 10:01-0400 Respiratory rate 17 /min Dr. George Cutler Work Phone: [facility] Work Phone: 12-26-2021 10:01-0400 SaO2% (BldA) [Mass fraction] 96 % Dr. George Cutler Work Phone: [facility] Work Phone: 12-26-2021 10:01-0400 Systolic blood pressure 117 mm[Hg] Dr. George Cutler Work Phone: [facility] Work Phone: 12-26-2021 10:01-0400 Body mass index (BMI) [Ratio] 29.8 kg/m2 Dr. George Cutler Work Phone: [facility] Work Phone: 12-26-2021 10:01-0400 Body temperature 97.5 [degF] Dr. George Cutler Work Phone: [facility] Work Phone: 12-26-2021 10:01-0400 Body weight 83.[address] George Cutler Work Phone: [facility] Work Phone: 12-26-2021 10:01-0400 Diastolic blood pressure 73 mm[Hg] Dr. George Cutler Work Phone: [facility] Work Phone: 12-26-2021 10:01-0400 Heart rate 47 /min Dr. George Cutler Work Phone: [facility] Work Phone: 12-26-2021 10:01-0400 Respiratory rate 17 /min Dr. George Cutler Work Phone: [facility] Work Phone: 12-26-2021 10:01-0400 SaO2% (BldA) [Mass fraction] 96 % Dr. George Cutler Work Phone: [facility] Work Phone: 12-26-2021 10:01-0400 Systolic blood pressure 117 mm[Hg] Dr. George Cutler Work Phone: [facility] Work Phone: 12-21-2021 14:37-0400 Body mass index (BMI) [Ratio] 30 kg/m2 Dr. George Cutler Work Phone: [facility] Work Phone: 12-21-2021 14:37-0400 Body temperature 97.8 [degF] Dr. George Cutler Work Phone: [facility] Work Phone: 12-21-2021 14:37-0400 Body weight 84.[address] George Cutler Work Phone: [facility] Work Phone: 12-21-2021 14:37-0400 Diastolic blood pressure 64 mm[Hg] Dr. George Cutler Work Phone: [facility] Work Phone: 12-21-2021 14:37-0400 Heart rate 53 /min Dr. George Cutler Work Phone: [facility] Work Phone: 12-21-2021 14:37-0400 Respiratory rate 17 /min Dr. George Cutler Work Phone: [facility] Work Phone: 12-21-2021 14:37-0400 SaO2% (BldA) [Mass fraction] 96 % Dr. George Cutler Work Phone: [facility] Work Phone: 12-21-2021 14:37-0400 Systolic blood pressure 116 mm[Hg] Dr. George Cutler Work Phone: [facility] Work Phone: 12-21-2021 14:37-0400 Body mass index (BMI) [Ratio] 30 kg/m2 Dr. George Cutler Work Phone: [facility] Work Phone: 12-21-2021 14:37-0400 Body temperature 97.8 [degF] Dr. George Cutler Work Phone: [facility] Work Phone: 12-21-2021 14:37-0400 Body weight 84.[address] George Cutler Work Phone: [facility] Work Phone: 12-21-2021 14:37-0400 Diastolic blood pressure 64 mm[Hg] Dr. George Cutler Work Phone: [facility] Work Phone: 12-21-2021 14:37-0400 Heart rate 53 /min Dr. George Cutler Work Phone: [facility] Work Phone: 12-21-2021 14:37-0400 Respiratory rate 17 /min Dr. George Cutler Work Phone: [facility] Work Phone: 12-21-2021 14:37-0400 SaO2% (BldA) [Mass fraction] 96 % Dr. George Cutler Work Phone: [facility] Work Phone: 12-21-2021 14:37-0400 Systolic blood pressure 116 mm[Hg] Dr. George Cutler Work Phone: [facility] Work Phone: 12-19-2021 13:11-0400 Body mass index (BMI) [Ratio] 29.7 kg/m2 Dr. George Cutler Work Phone: [facility] Work Phone: 12-19-2021 13:11-0400 Body temperature 97.8 [degF] Dr. George Cutler Work Phone: [facility] Work Phone: 12-19-2021 13:11-0400 Body weight 83.[address] George Cutler Work Phone: [facility] Work Phone: 12-19-2021 13:11-0400 Diastolic blood pressure 77 mm[Hg] Dr. George Cutler Work Phone: [facility] Work Phone: 12-19-2021 13:11-0400 Heart rate 93 /min Dr. George Cutler Work Phone: [facility] Work Phone: 12-19-2021 13:11-0400 Respiratory rate 16 /min Dr. George Cutler Work Phone: [facility] Work Phone: 12-19-2021 13:11-0400 SaO2% (BldA) [Mass fraction] 96 % Dr. George Cutler Work Phone: [facility] Work Phone: 12-19-2021 13:11-0400 Systolic blood pressure 117 mm[Hg] Dr. George Cutler Work Phone: [facility] Work Phone: 12-19-2021 13:11-0400 Body height 167.[address] George Cutler Work Phone: [facility] Work Phone: 12-19-2021 13:11-0400 Body mass index (BMI) [Ratio] 29.7 kg/m2 Dr. George Cutler Work Phone: [facility] Work Phone: 12-19-2021 13:11-0400 Body temperature 97.8 [degF] Dr. George Cutler Work Phone: [facility] Work Phone: 12-19-2021 13:11-0400 Body weight 83.[address] George Cutler Work Phone: [facility] Work Phone: 12-19-2021 13:11-0400 Diastolic blood pressure 77 mm[Hg] Dr. George Cutler Work Phone: [facility] Work Phone: 12-19-2021 13:11-0400 Heart rate 93 /min Dr. George Cutler Work Phone: [facility] Work Phone: 12-19-2021 13:11-0400 Respiratory rate 16 /min Dr. George Cutler Work Phone: [facility] Work Phone: 12-19-2021 13:11-0400 SaO2% (BldA) [Mass fraction] 96 % Dr. George Cutler Work Phone: [facility] Work Phone: 12-19-2021 13:11-0400 Systolic blood pressure 117 mm[Hg] Dr. George Cutler Work Phone: [facility] Work Phone: 12-07-2021 11:03-0400 Body mass index (BMI) [Ratio] 29.9 kg/m2 Dr. George Cutler Work Phone: [facility] Work Phone: 12-07-2021 11:03-0400 Body temperature 97.5 [degF] Dr. George Cutler Work Phone: [facility] Work Phone: 12-07-2021 11:03-0400 Body weight 84.[address] George Cutler Work Phone: [facility] Work Phone: 12-07-2021 11:03-0400 Diastolic blood pressure 62 mm[Hg] Dr. George Cutler Work Phone: [facility] Work Phone: 12-07-2021 11:03-0400 Heart rate 52 /min Dr. George Cutler Work Phone: [facility] Work Phone: 12-07-2021 11:03-0400 Respiratory rate 16 /min Dr. George Cutler Work Phone: [facility] Work Phone: 12-07-2021 11:03-0400 SaO2% (BldA) [Mass fraction] 97 % Dr. George Cutler Work Phone: [facility] Work Phone: 12-07-2021 11:03-0400 Systolic blood pressure 102 mm[Hg] Dr. George Cutler Work Phone: [facility] Work Phone: 12-07-2021 11:03-0400 Body height 167.[address] George Cutler Work Phone: [facility] Work Phone: 12-07-2021 11:03-0400 Body mass index (BMI) [Ratio] 29.9 kg/m2 Dr. George Cutler Work Phone: [facility] Work Phone: 12-07-2021 11:03-0400 Body temperature 97.5 [degF] Dr. George Cutler Work Phone: [facility] Work Phone: 12-07-2021 11:03-0400 Body weight 84.[address] George Cutler Work Phone: [facility] Work Phone: 12-07-2021 11:03-0400 Diastolic blood pressure 62 mm[Hg] Dr. George Cutler Work Phone: [facility] Work Phone: 12-07-2021 11:03-0400 Heart rate 52 /min Dr. George Cutler Work Phone: [facility] Work Phone: 12-07-2021 11:03-0400 Respiratory rate 16 /min Dr. George Cutler Work Phone: [facility] Work Phone: 12-07-2021 11:03-0400 SaO2% (BldA) [Mass fraction] 97 % Dr. George Cutler Work Phone: [facility] Work Phone: 12-07-2021 11:03-0400 Systolic blood pressure 102 mm[Hg] Dr. George Cutler Work Phone: [facility] Work Phone: 12-01-2021 13:42-0400 Body mass index (BMI) [Ratio] 29.5 kg/m2 Dr. George Cutler Work Phone: [facility] Work Phone: 12-01-2021 13:42-0400 Body temperature 97.5 [degF] Dr. George Cutler Work Phone: [facility] Work Phone: 12-01-2021 13:42-0400 Body weight 83.[address] George Cutler Work Phone: [facility] Work Phone: 12-01-2021 13:42-0400 Diastolic blood pressure 73 mm[Hg] Dr. George Cutler Work Phone: [facility] Work Phone: 12-01-2021 13:42-0400 Heart rate 52 /min Dr. George Cutler Work Phone: [facility] Work Phone: 12-01-2021 13:42-0400 Respiratory rate 16 /min Dr. George Cutler Work Phone: [facility] Work Phone: 12-01-2021 13:42-0400 SaO2% (BldA) [Mass fraction] 95 % Dr. George Cutler Work Phone: [facility] Work Phone: 12-01-2021 13:42-0400 Systolic blood pressure 121 mm[Hg] Dr. George Cutler Work Phone: [facility] Work Phone: 12-01-2021 13:42-0400 Body height 167.[address] George Cutler Work Phone: [facility] Work Phone: 12-01-2021 13:42-0400 Body mass index (BMI) [Ratio] 29.5 kg/m2 Dr. George Cutler Work Phone: [facility] Work Phone: 12-01-2021 13:42-0400 Body temperature 97.5 [degF] Dr. George Cutler Work Phone: [facility] Work Phone: 12-01-2021 13:42-0400 Body weight 83.[address] George Cutler Work Phone: [facility] Work Phone: 12-01-2021 13:42-0400 Diastolic blood pressure 73 mm[Hg] Dr. George Cutler Work Phone: [facility] Work Phone: 12-01-2021 13:42-0400 Heart rate 52 /min Dr. George Cutler Work Phone: [facility] Work Phone: 12-01-2021 13:42-0400 Respiratory rate 16 /min Dr. George Cutler Work Phone: [facility] Work Phone: 12-01-2021 13:42-0400 SaO2% (BldA) [Mass fraction] 95 % Dr. George Cutler Work Phone: [facility] Work Phone: 12-01-2021 13:42-0400 Systolic blood pressure 121 mm[Hg] Dr. George Cutler Work Phone: [facility] Work Phone: 11-25-2021 11:30-0400 Diastolic blood pressure 56 mm[Hg] Dr. George Cutler Work Phone: [facility] Work Phone: 11-25-2021 11:30-0400 Heart rate 52 /min Dr. George Cutler Work Phone: [facility] Work Phone: 11-25-2021 11:30-0400 Respiratory rate 16 /min Dr. George Cutler Work Phone: [facility] Work Phone: 11-25-2021 11:30-0400 SaO2% (BldA) [Mass fraction] 95 % Dr. George Cutler Work Phone: [facility] Work Phone: 11-25-2021 11:30-0400 Systolic blood pressure 105 mm[Hg] Dr. George Cutler Work Phone: [facility] Work Phone: 11-25-2021 08:26-0400 Body height 167.[address] George Cutler Work Phone: [facility] Work Phone: 11-25-2021 08:26-0400 Body mass index (BMI) [Ratio] 28.8 kg/m2 Dr. George Cutler Work Phone: [facility] Work Phone: 11-25-2021 08:26-0400 Body temperature 97.8 [degF] Dr. George Cutler Work Phone: [facility] Work Phone: 11-25-2021 08:26-0400 Body weight 81.[address] George Cutler Work Phone: [facility] Work Phone: 11-15-2021 08:39-0400 Body height 167.[address] George Cutler Work Phone: [facility] Work Phone: 11-15-2021 08:39-0400 Body mass index (BMI) [Ratio] 29.3 kg/m2 Dr. George Cutler Work Phone: [facility] Work Phone: 11-15-2021 08:39-0400 Body temperature 96.9 [degF] Dr. George Cutler Work Phone: [facility] Work Phone: 11-15-2021 08:39-0400 Body weight 82.[address] George Cutler Work Phone: [facility] Work Phone: 11-15-2021 08:39-0400 Diastolic blood pressure 75 mm[Hg] Dr. George Cutler Work Phone: [facility] Work Phone: 11-15-2021 08:39-0400 Heart rate 53 /min Dr. George Cutler Work Phone: [facility] Work Phone: 11-15-2021 08:39-0400 Respiratory rate 18 /min Dr. George Cutler Work Phone: [facility] Work Phone: 11-15-2021 08:39-0400 SaO2% (BldA) [Mass fraction] 95 % Dr. George Cutler Work Phone: [facility] Work Phone: 11-15-2021 08:39-0400 Systolic blood pressure 117 mm[Hg] Dr. George Cutler Work Phone: [facility] Work Phone: 08-19-2021 13:40-0500 Body weight 81.[address] George Cutler Work Phone: [facility] Work Phone: 08-19-2021 13:40-0500 Diastolic blood pressure 76 mm[Hg] Dr. George Cutler Work Phone: [facility] Work Phone: 08-19-2021 13:40-0500 Heart rate 61 /min Dr. George Cutler Work Phone: [facility] Work Phone: 08-19-2021 13:40-0500 Respiratory rate 18 /min Dr. George Cutler Work Phone: [facility] Work Phone: 08-19-2021 13:40-0500 SaO2% (BldA) [Mass fraction] 95 % Dr. George Cutler Work Phone: [facility] Work Phone: 08-19-2021 13:40-0500 Systolic blood pressure 121 mm[Hg] Dr. George Cutler Work Phone: [facility] Work Phone: 08-02-2021 11:48-0500 Body mass index (BMI) [Ratio] 28.4 kg/m2 Dr. George Cutler Work Phone: [facility] Work Phone: 08-02-2021 11:48-0500 Body temperature 97.6 [degF] Dr. George Cutler Work Phone: [facility] Work Phone: 08-02-2021 11:48-0500 Body weight 79.[address] George Cutler Work Phone: [facility] Work Phone: 08-02-2021 11:48-0500 Diastolic blood pressure 68 mm[Hg] Dr. George Cutler Work Phone: [facility] Work Phone: 08-02-2021 11:48-0500 Heart rate 53 /min Dr. George Cutler Work Phone: [facility] Work Phone: 08-02-2021 11:48-0500 Respiratory rate 16 /min Dr. George Cutler Work Phone: [facility] Work Phone: 08-02-2021 11:48-0500 SaO2% (BldA) [Mass fraction] 97 % Dr. George Cutler Work Phone: [facility] Work Phone: 08-02-2021 11:48-0500 Systolic blood pressure 111 mm[Hg] Dr. George Cutler Work Phone: [facility] Work Phone: 08-23-2020 08:05-0500 Body mass index (BMI) [Ratio] 27.4 kg/m2 Dr. George Cutler Work Phone: [facility] Work Phone: 02-22-2017 13:54-0400 Heart rate 55 /min Pk Vargas [facility] Work Phone: 02-22-2017 13:42-0400 BMI (Body Mass Index) 26.91 kg/m2 Nicholas Sparks MD [facility] Work Phone: 02-22-2017 13:42-0400 BP Diastolic 60 mm[Hg] Nicholas Sparks MD [facility] Work Phone: 02-22-2017 13:42-0400 BP Systolic 108 mm[Hg] Nicholas Sparks MD [facility] Work Phone: 02-22-2017 13:42-0400 Height 172.72 cm Nicholas Sparks MD [facility] Work Phone: 02-22-2017 13:42-0400 Pulse (Heart Rate) 56 /min Nicholas Sparks MD [facility] Work Phone: 02-22-2017 13:42-0400 Respiratory Rate 16 /min Nicholas Sparks MD [facility] Work Phone: 02-22-2017 13:42-0400 Weight 80.29 kg Nicholas Sparks MD [facility] Work Phone: Encounters Encounter Date Encounter Type Care Provider Facility Start: 06-03-[address] Jazzy Gibson MD -[facility] Start: 06-03-2025 End: 06-03-[address] Aileen Gibson MD -[facility] Work Phone: Start: 06-03-2025 End: 06-03-2025 ambulatory Connie Mercadochner [place] [place]: 05-27-2025 End: 05-27-2025 Patient encounter procedure Alvina Torres RN IV THERAPY-C -Cat Scan [facility] Work Phone: Start: 05-27-2025 End: 05-27-2025 ambulatory Connie Sun Facility:[facility] Start: 03-04-2025 End: 03-04-[address] Connie Sun MD Work Phone: -[facility] Start: 03-04-2025 End: 03-04-2025 Patient encounter procedure Alvina Torres NP-Ayad -[facility] Work Phone: Start: 12-04-[address] Jazzy Gibson MD -[facility] Start: 12-04-2024 End: 12-04-[address] Aileen Gibson MD -[facility] Work Phone: Start: 12-04-2024 End: 12-04-2024 ambulatory [facility] Facility[place] [place] Start: 12-02-2024 Encounter for preprocedural laboratory examination [facility] Start: 11-27-2024 End: 11-27-[address] Connie Sun MD Work Phone: [facility] Work Phone: Start: 11-27-2024 End: 11-27-[address] [facility] Start: 11-27-2024 End: 11-27-2024 ambulatory [facility] Facility:[facility] Start: 11-04-2024 End: 11-04-[address] Connie Sun MD Work Phone: [facility] Work Phone: Start: 11-04-2024 End: 11-04-[address] William Padron MD -Laboratory Work Phone: Start: 11-04-2024 End: 11-04-2024 ambulatory William Padron Facility:[facility] Start: 10-31-2024 End: 10-31-[address] William Padron MD -[facility] Work Phone: Start: 10-31-2024 End: 10-31-2024 ambulatory Connie Sun Facility[place] [place] Start: 12-17-2023 End: 12-17-[address] Connie Sun Work Phone: [facility] Work Phone: Start: 12-17-2023 End: 12-17-[address] Connie Sun Work Phone: [facility]Labor[facility] Work Phone: Start: 12-13-2023 End: 12-13-[address] Connie Sun Work Phone: [facility] Work Phone: Start: 12-10-2023 End: 12-10-[address] Connie Sun Work Phone: [facility] Work Phone: Start: 12-10-2023 End: 12-10-[address] Connie Sun Work Phone: [facility] Work Phone: Start: 12-07-2023 Non-patient / Non-visit Dr. Julianna Sun Work Phone: [facility] Inpatient Physicians Work Phone: Start: 12-06-2023 End: 12-07-2023 Evaluation and management of inpatient Dr. Connie Sun Work Phone: [facility]-Progressive Care Unit Work Phone: Start: 12-06-[address] Connie Sun Work Phone: [facility] Start: 12-06-2023 End: 12-06-[address] Connie Sun Work Phone: [facility] Care Work Phone: Start: 11-27-2023 Non-patient / Non-visit Dr. Julianna Sun Work Phone: [facility] Start: 11-27-2023 End: 11-27-[address] Connie Sun Work Phone: [facility] Work Phone: Start: 11-27-2023 End: 11-27-[address] [facility] Start: 10-24-2023 End: 10-24-[address] Connie Sun Work Phone: [facility] Work Phone: Start: 09-04-[address] Connie Sun Work Phone: [facility] Start: 09-04-2023 End: 09-04-[address] Connie Sun Work Phone: [facility] Work Phone: Start: 08-22-2023 End: 08-22-2023 ambulatory RN IV THERAPY-C Pastora Mcneil Work Phone: [facility] Work Phone: Start: 08-22-2023 End: 08-22-2023 Patient encounter procedure RN IV THERAPY-C Pastora Mcneil Work Phone: [facility] Work Phone: Start: 05-07-2023 End: 05-07-2023 Patient encounter procedure RN IV THERAPY-C Pastora Mcneil Work Phone: [facility] Work Phone: Start: 03-14-2023 End: 03-14-[address] George Cutler Work Phone: [facility] Work Phone: Start: 03-14-2023 End: 03-14-[address] [facility] Cut[facility] Start: 01-24-[address] George Cutler Work Phone: [facility] Start: 01-24-2023 End: 01-24-[address] George Cutler Work Phone: [facility] Work Phone: Start: 01-17-2023 End: 01-17-[address] George Cutler Work Phone: [facility] Work Phone: Start: 01-04-2023 Non-patient / Non-visit Dr. Bradley Cutler Work Phone: [facility] Start: 01-04-2023 End: 01-04-[address] George Cutler Work Phone: [facility] Work Phone: Start: 01-04-2023 End: 01-04-[address] [facility] Start: 12-27-2022 End: 12-27-[address] George Cutler Work Phone: [facility] Start: 10-25-[address] George Cutler Work Phone: [facility] Start: 10-25-2022 End: 10-25-[address] George Cutler Work Phone: [facility] Start: 07-25-[address] George Cutler Work Phone: [facility]Physical Therapy Start: 07-19-2022 End: 07-19-[address] George Cutler Work Phone: [facility] Work Phone: Start: 07-19-2022 End: 07-19-[address] George Cutler Work Phone: [facility] Start: 07-19-[address] George Cutler Work Phone: [facility] Start: 07-05-2022 End: 07-05-[address] George Cutler Work Phone: [facility] Start: 06-22-2022 End: 06-22-[address] George Cutler Work Phone: [facility] Gastro[facility] Start: 06-14-2022 End: 06-14-[address] George Cutler Work Phone: [facility] Start: 06-13-2022 End: 06-13-[address] George Cutler Work Phone: [facility] Start: 05-30-2022 End: 05-30-[address] George Cutler Work Phone: [facility] Start: 05-23-2022 End: 05-23-[address] George Cutler Work Phone: [facility] Start: 05-18-2022 End: 05-18-[address] George Cutler Work Phone: [facility] Start: 05-09-2022 End: 05-09-[address] George Cutler Work Phone: [facility] Start: 05-04-2022 End: 05-04-[address] George Cutler Work Phone: [facility] Start: 05-02-2022 End: 05-02-[address] George Cutler Work Phone: [facility] Start: 04-27-2022 End: 04-27-[address] George Cutler Work Phone: [facility] Start: 04-20-2022 End: 04-20-[address] George Cutler Work Phone: [facility] Start: 04-12-2022 Non-patient / Non-visit Dr. Bradley Cutler Work Phone: [facility] Inpatient Physicians Start: 04-11-2022 Non-patient / Non-visit Dr. Bradley Cutler Work Phone: [facility] Start: 04-11-2022 Non-patient / Non-visit Dr. Bradley Cutler Work Phone: [facility] Start: 04-11-2022 Non-patient / Non-visit Dr. Bradley Cutler Work Phone: [facility] Start: 04-10-2022 Non-patient / Non-visit Dr. Bradley Cutler Work Phone: [facility] Start: 04-10-2022 End: 04-12-2022 Non-patient / Non-visit Dr. George Cutler Work Phone: [facility] Start: 04-10-2022 End: 04-12-2022 Evaluation and management of inpatient Dr. George Cut[facility] Start: 04-07-[address] George Cutler Work Phone: [facility] Start: 04-06-2022 End: 04-06-[address] George Cutler Work Phone: [facility] Start: 03-30-2022 End: 03-30-[address] George Cutler Work Phone: [facility] Start: 03-16-2022 End: 03-16-[address] George Cutler Work Phone: [facility] Start: 03-08-2022 Non-patient / Non-visit Dr. Bradley Cutler Work Phone: [facility] Start: 03-08-2022 End: 03-08-2022 Admission to same day surgery center Dr[facility] Cut[facility] Start: 03-06-2022 End: 03-06-[address] George Cutler Work Phone: [facility] Start: 03-03-2022 End: 03-03-[address] George Cutler Work Phone: [facility] Start: 03-01-2022 End: 03-01-[address] George Cutler Work Phone: [facility] Medicine [facility] Start: 02-27-[address] George Cutler Work Phone: [facility] Start: 02-27-2022 End: 02-27-[address] George Cutler Work Phone: [facility] Start: 01-25-2022 End: 01-27-2022 Evaluation and management of inpatient Aleksey Campa DO Work Phone: [facility] TELE[facility] Comment on above: Lung nodule (Primary Dx) Start: 01-04-2022 End: 01-04-[address] George Cutler Work Phone: [facility] Start: 12-29-2021 Non-patient / Non-visit Dr. Bradley Cutler Work Phone: [facility] Start: 12-29-2021 End: 12-29-2021 Admission to same day surgery center Dr. George Cutler Work Phone: [facility]-End[facility] Start: 12-28-2021 Non-patient / Non-visit Dr. Bradley Cutler Work Phone: [facility] Start: 12-26-2021 End: 12-26-[address] George Cutler Work Phone: [facility] Start: 12-21-2021 End: 12-21-[address] George Cutler Work Phone: [facility] Start: 12-19-2021 End: 12-19-[address] George Cut[facility] Start: 12-15-2021 End: 12-15-[address] George Cutler Work Phone: [facility] Start: 12-14-[address] George Cutler Work Phone: [facility] Start: 12-10-2021 Non-patient / Non-visit Dr. Bradley Cutler Work Phone: [facility] Start: 12-09-2021 End: 12-09-[address] George Cutler Work Phone: [facility]-Pulmonary Services/Neurology Start: 12-07-2021 End: 12-07-[address] George Cutler Work Phone: [facility] Start: 12-01-2021 End: 12-01-[address] George Cutler Work Phone: [facility] Start: 11-25-2021 End: 11-25-[address] George Cutler Work Phone: [facility] Start: 11-21-2021 End: 11-21-[address] George Cutler Work Phone: [facility]Labor[facility] Start: 11-15-2021 End: 11-15-[address] George Cutler Work Phone: [facility] Start: 11-10-2021 End: 11-10-[address] George Cutler Work Phone: [facility] Start: 08-23-2021 Non-patient / Non-visit Dr. Bradley Cutler Work Phone: [facility] Start: 08-23-2021 End: 08-23-[address] George Cutler Work Phone: [facility]Cardi[facility] Start: 08-19-[address] George Cutler Work Phone: [facility] Start: 08-19-2021 End: 08-19-2021 Admission to same day surgery center Dr. George Cutler Work Phone: [facility] Start: 08-19-2021 End: 08-19-[address] George Cutler Work Phone: [facility] Start: 08-02-2021 End: 08-02-[address] George Cutler Work Phone: [facility] Start: 08-01-[address] George Cutler Work Phone: [facility]-P[facility] Services/Neurology Start: 08-01-2021 Non-patient / Non-visit Dr. Bradley Cutler Work Phone: [facility] Start: 04-24-2012 End: 04-24-2012 Telephone encounter Katarina Evangelista Work Phone: Gastro/Endoscopy Procedures Date Procedure Procedure Detail Performing Clinician Start: 06-03-[address] Connie Sun MD Work Phone: Start: 05-27-2025 CT of thorax and abdomen with contrast Dr. Connie Sun MD Work Phone: Start: 12-04-[address] Connie Sun MD Work Phone: Start: 11-27-[address] Connie Sun MD Work Phone: Start: 11-27-2024 CT of thorax and abdomen with contrast Dr. Connie Sun MD Work Phone: Start: 06-10-2024 Measurement of renal function Dr. Connie Sun MD Work Phone: Comment on above: GFR Calc Start: 12-10-2023 CT of chest and abdomen Dr. Connie donald Work Phone: Start: 08-22-2023 CT of chest and abdomen RN IV THERAPY-C Pastora garcia Work Phone: Start: 01-17-2023 CT of chest and abdomen Dr. George Cutler Work Phone: Start: 01-04-2023 Radionuclide imaging of perfusion of myocardium under exercise stress Dr. George Cutler Work Phone: Start: 07-19-2022 CT of thorax with contrast Dr. George beach Work Phone: Start: 07-19-[address] Connie locke MD Work Phone: Start: 04-11-[address] George beach Work Phone: Start: 04-10-2022 Plain chest X-ray Dr. George Cutler Work Phone: Start: 03-08-2022 Radiographic procedure of chest Dr. Kentrell Cutler Work Phone: Start: 03-08-2022 Implantation to cardiovascular system Dr. George Cutler Work Phone: Start: 03-08-[address] George Cutler Work Phone: Start: 01-27-2022 Radiologic exam chest single view Jovan Altman MD Work Phone: Start: 01-27-2022 Basic metabolic panel calcium total Joaquin Altman MD Work Phone: Start: 01-26-2022 Radiologic exam chest single view Jovan Altman MD Work Phone: Start: 01-26-2022 Basic metabolic panel calcium total Joaquin Altman MD Work Phone: Start: 01-25-2022 OPERATIVE REPORT Physician Generic Start: 01-25-2022 Radiologic exam chest single view Jovan Altman MD Work Phone: Start: 01-25-2022 End: 01-25-2022 BLOOD GAS, ARTERIAL Aleksey Campa DO Work Phone: Start: 01-25-2022 Antibody screen Aleksey Campa DO Work Phone: Start: 01-25-2022 Ecg routine ecg w/least 12 lds w/i&r Mike Aponte MD Work Phone: Start: 01-25-2022 BASIC METABOLIC PANEL W/ REFLEX TO MG FOR LOW K Ke Cisneros CNP Work Phone: Start: 01-25-2022 Blood count complete auto&auto difrntl wbc Ke Cisneros CNP Work Phone: Start: 01-25-2022 Blood typing serologic abo Ke Cisneros TECHNICAL STAFF ENGINEER Work Phone: Start: 12-29-2021 Endoscopic ultrasonography of bronchus Dr[address] George Cutler Work Phone: Start: 12-15-2021 MRI of brain with contrast Dr. George beach Work Phone: Start: 12-15-2021 X-ray of eye for foreign body Dr. George Cutler Work Phone: Start: 12-14-2021 Positron emission tomography with computed tomography Dr. George Cutler Work Phone: Start: 11-25-2021 Plain chest X-ray Dr. George Cutler Work Phone: Start: 11-25-2021 Plain chest X-ray Dr. George Cutler Work Phone: Start: 11-25-2021 Biopsy/Inj or Needle Placement Dr. George Cutler Work Phone: Start: 11-10-2021 CT of chest without contrast Dr. George mtz Work Phone: Start: 08-23-2021 Radionuclide imaging of perfusion of myocardium under exercise stress Dr. George Cutler Work Phone: Start: 09-13-2017 End: 09-27-2017 Lipid [...] Start: 04-26-2012 Colonoscopy Katarina Evangelista Work Phone: Bacteria identified in Blood by Culture Dr. George Cutler Work Phone: Urine culture Dr. George day Work Phone: Plan of Treatment Date Care Activity Detail Author Start: 12-17-2023 C peptide [Mass/volu me] in Serum or Plasma [facility] Start: 12-17-2023 Insulin [Mass/volume ] in Serum or Plasma [facility] Start: 12-17-2023 Procedure [facility] Start: 12-07-2023 Patient discharge [facility] Start: 12-06-2023 Following clinical p athway protocol [facility] Start: 12-06-2023 Ambulation without limitation [facility] Start: 12-06-2023 Assessment of risk o f venous thromboembolism [facility] Start: 12-06-2023 Care regimes management [facility] Start: 12-06-2023 Incentive spirometry [facility] Start: 12-06-2023 Insertion of cathete r into peripheral vein [facility] Start: 12-06-2023 Notification of physician [facility] Start: 12-06-2023 Oxygen therapy [facility] Start: 12-06-2023 Patient referral to dietitian [facility] Start: 12-06-2023 Providing care accor ding to standard [facility] Start: 12-06-2023 [facility] Start: 12-06-2023 Verification routine [facility] Start: 12-06-2023 Admission procedure [facility] Start: 12-06-2023 Hospital admission, emergency, from emergency room, medical nature [facility] Start: 12-06-2023 Patient referral to dietitian [facility] Start: 07-19-2022 Venous catheter care management [facility] Work Phone: Start: 07-05-2022 Patient referral [facility] Work Phone: Start: 04-26-2022 Screening for malign ant neoplasm of colon [facility] Start: 04-13-2022 Influenza vaccination Flu vacc ine (Season Ended) [facility] Start: 04-12-2022 Patient discharge [facility] Work Phone: Start: 04-12-2022 [facility] Work Phone: Start: 04-10-2022 Catheterization of vein [facility] Work Phone: Start: 04-10-2022 Referral to occupati onal therapist [facility] Work Phone: Start: 04-10-2022 Referral to service [facility] Work Phone: Start: 04-10-2022 [facility] Work Phone: Start: 04-10-2022 Application of intermittent pneumatic compression device [facility] Work Phone: Start: 04-10-2022 Venous catheter care management [facility] Work Phone: Start: 04-10-2022 Ambulation without limitation [facility] Work Phone: Start: 04-10-2022 Assessment of risk o f venous thromboembolism [facility] Work Phone: Start: 04-10-2022 Consultation [facility] Work Phone: Start: 04-10-2022 Documentation procedure [facility] Work Phone: Start: 04-10-2022 Incentive spirometry [facility] Work Phone: Start: 04-10-2022 End: 04-10-2022 Insertion of catheter into peripheral vein [facility] Work Phone: Start: 04-10-2022 End: 04-10-2022 Measuring intake and output [facility] Work Phone: Start: 04-10-2022 Oxygen therapy [facility] Work Phone: Start: 04-10-2022 End: 04-10-2022 Providing care according to standard [facility] Work Phone: Start: 04-10-2022 Referral to gastroenterology service [facility] Work Phone: Start: 04-10-2022 End: 04-10-2022 [facility] Work Phone: Start: 04-10-2022 Admission procedure [facility] Work Phone: Start: 04-10-2022 End: 04-10-2022 Blood culture [facility] Work Phone: Start: 04-10-2022 [facility] Work Phone: Start: 04-10-2022 End: 04-11-2022 [facility] Work Phone: Start: 04-10-2022 Patient referral to dietitian [facility] Work Phone: Start: 04-06-2022 Vital signs measurements [facility] Work Phone: Start: 03-16-2022 End: 03-16-2022 Venous catheter care management [facility] Start: 03-16-2022 Vital signs measurements [facility] Work Phone: Start: 03-08-2022 Anesthesia access ce ntral venous circulation ANESTH VASCULAR ACCESS [facility] Work Phone: Start: 03-08-2022 Insj tunneled ctr va d w/subq port age 7 yr/> INSERT TUNNELED CV CATH [facility] Work Phone: Start: 03-08-2022 Patient discharge [facility] Work Phone: Start: 02-27-2022 Patient referral [facility] Work Phone: Start: 02-07-2022 End: 02-07-2022 Evaluation and management of inpatient 02/07/2022 Office Visit Cardiothoracic Surgery Aleksey Campa [address] [place] [address] [address] [place] [address] [facility] Start: 12-29-2021 [facility] ebus guided sampl 3/> node station/strux BRONCH EBUS SAMPLNG 3/> NODE [facility] Work Phone: Start: 12-29-2021 Patient discharge [facility] Work Phone: Start: 12-21-2021 Patient referral [facility] Work Phone: Start: 12-14-2021 Positron emission tomography with computed tomography PET/CT Tumor Base -Thigh Init [facility] Work Phone: Start: 12-01-2021 Patient referral [facility] Work Phone: Start: 11-25-2021 CORE NDL BX LNG/MED PERQ CORE NDL BX LNG/MED PERQ [facility] Work Phone: Start: 11-25-2021 Catheterization of vein [facility] Work Phone: Start: 11-25-2021 Oxygen therapy [facility] Work Phone: Start: 11-25-2021 Patient discharge [facility] Work Phone: Start: 11-25-2021 Vital signs measurements [facility] Work Phone: Start: 11-25-2021 Following clinical p athway protocol [facility] Work Phone: Start: 04-13-2021 Influenza vaccination INFLUENZA (Sea son Ended) [facility] Start: 09-13-2017 End: 03-21-2017 *Hepatic Function Panel [facility] Work Phone: Start: 09-13-2017 End: 09-27-2017 Lipid panel [AGGREGATE] *Lipid Profile CC PCP [facility] Work Phone: Start: 09-05-2017 End: 09-05-2017 Appointment Appointment [facility] Work Phone: Start: 02-22-2017 End: 02-22-2017 Appointment Appointment [facility] Work Phone: Start: 02-22-2017 End: 03-13-2017 *BMP *BMP [facility] Work Phone: Start: 02-22-2017 End: 03-13-2017 *Hepatic Function Panel *Hepatic Function Panel [facility] Work Phone: Start: 02-22-2017 End: 02-22-2017 Echocardiography Echocardiogram (complete) [facility] Work Phone: Start: 02-22-2017 End: 02-22-2017 Electrocardiogram, complete EKG (In office) [facility] Work Phone: Start: 02-22-2017 End: 02-22-2017 Follow Up Appt 6 months Follow Up Appt 6 months [facility] Work Phone: Start: 02-22-2017 End: 03-13-2017 Lipid panel [AGGREGATE] *Lipid Profile CC PCP [facility] Work Phone: Start: 02-22-2017 End: 02-22-2017 PFM PFM [facility] Work Phone: Start: 12-13-2016 LIPID SCREEN LIPID SCREEN [facility] Start: 11-29-2016 Hemoglobin A1c measurement A1C test (Diabetic or Prediabetic) [facility] Start: 11-29-2016 Lipid panel Lipids [facility] Start: 01-21-2015 PROSTATE CANCER SCRE ENING DISCUSSION PROSTATE CANCER SCREENING DISCUSSION [facility] Start: 12-13-2014 DIABETES SCREEN DIABETES SCREEN [facility] Start: 12-21-2007 Screening for malign ant neoplasm of colon [facility] Start: 12-21-2007 Shingles vaccine (1 of 2) Lemus gles vaccine (1 of 2) [facility] Start: 12-21-2007 SHINGRIX VACCINE (1 of 2) LEMUS GRIX VACCINE (1 of 2) [facility] Start: 08-14-2004 DTaP/Tdap/Td vaccine (1 - Tdap) DTaP/Tdap/Td vaccine (1 - Tdap) [facility] Start: 2002 Screening for malign ant neoplasm of colon [facility] Start: 1997 Prostate specific an tigen measurement Prostate Specific Antigen (PSA) Screening or Monitoring [facility] Start: 1976 Urine microalbumin profile DTAP,TDAP ,TD (1 - Tdap) [facility] Start: 12-21-1975 HEPATITIS C SCREENING HEPATITIS C SC REENING [facility] Start: 12-21-1975 Hepatitis C screening Hepatitis C [facility] Start: 12-21-1975 HIV SCREENING HIV SCREENING [facility] Start: 1972 HIV screening HIV screen [facility] Start: 1969 Adult depression scr eening assessment DEPRESSION SCREENING [facility] Start: 1969 Depression Screen Depression Screen [facility] Bacteria identified in Blood by Culture Blood Culture [facility] Work Phone: Basic metabolic 2000 panel - Serum or Plasma Basic Metabolic Panel Lab Routine Daily until discontinued starting 01/26/2022, 2 completed [facility] Work Phone: Comment on above: Daily until disconti nued starting 01/26/2022, 2 completed Bilirubin measuremen t, urine [facility] Work Phone: Blood chemistry [facility] Work Phone: Blood chemistry [facility] Blood culture [facility] Work Phone: CBC W Auto Different ial panel - Blood CBC with Auto Differential Lab Routine Daily until discontinued starting 01/26/2022, 2 [facility] Work Phone: Comment on above: Daily until disconti nued starting 01/26/2022, 2 completed CBC W Auto Different ial panel - Blood [facility] Work Phone: CBC W Auto Different ial panel - Blood [facility] CBC W Auto Different ial panel - Blood [facility] CBC W Auto Different ial panel - Blood [facility] metabo lic 2000 panel - Serum or Plasma [facility] metabo lic 2000 panel - Serum or Plasma [facility] CT Chest and Abdomen W contrast IV [facility] CT Chest and Abdomen W contrast IV [facility] CT Chest and Abdomen W contrast IV [facility] Hemoglobin [Presence ] in Urine [facility] Work Phone: Lipid 1996 panel - S nixon or Plasma [facility] Magnesium [Mass/volu me] in Serum or Plasma [facility] Work Phone: Measurement of keton es in urine using dipstick [facility] Work Phone: Microscopic urinalysis [facility] Work Phone: Oxygen therapy [Mini [facility] Data Set] Initiate Oxygen Therapy Protocol Respiratory Care Routine As Needed until discontinued starting 01/25/2022 [facility] Work Phone: Comment on above: As Needed until disc ontinued starting 01/25/2022 Patient Education [facility] [employer] Work Phone: Patient referral [facility] Work Phone: pH of Urine [facility] Work Phone: Positron emission tomography with computed tomography [facility] Work Phone: Procedure [facility] Work Phone: Prostate specific an tigen measurement [facility] Specific gravity of Urine [facility] Work Phone: Spirometry panel Incentive geoff metry Respiratory Care Routine Every 2hr while awake until discontinued starting 01/25/2022 [facility] Work Phone: Comment on above: Every 2hr while awak e until discontinued starting 01/25/2022 End: 01-25-2022 Surgical Pathology [facility] Work Phone: Comment on above: Once for 1 Occurrenc es starting 01/25/2022 until 01/25/2022 Urinalysis, blood, qualitative [facility] Work Phone: Urine culture Urine Culture [facility] Work Phone: Urine dipstick for glucose [facility] Work Phone: Urine dipstick for leukocyte esterase [facility] Work Phone: Urine dipstick for nitrite [facility] Work Phone: Urine dipstick for protein [facility] Work Phone: Urine examination [facility] Work Phone: Urine microscopy: epithelial cells [facility] Work Phone: Urine Microscopy: wh ite cells [facility] Work Phone: Urobilinogen [Presen ce] in Urine [facility] Work Phone: XR CHEST PORTABLE XR CHEST [place] [facility] Imaging Routine Daily until discontinued starting 01/26/2022, 2 completed [facility] Work Phone: Comment on above: Daily until disconti nued starting 01/26/2022, 2 completed [facility] Immunizations Immunization Date Immunization Notes Care Provider Amy [facility] 06-30-2021 Covid (Pfizer) Dr. Connie locke Work Phone: [facility] 11-09-2020 Covid (Pfizer) Dr. George beach Work Phone: [facility] 10-19-2020 Covid (Pfizer) Dr. George beach Work Phone: [facility] 08-13-2004 tetanus and diphther ia toxoids, not adsorbed, for adult use Katarina Evangelista Work Phone: [facility] Payers Date Payer Category Payer Medicare [id number] 2021 Self-pay [id number] 2021 Unknown [id number] 2011 Unknown MMO MMO [employer] [id number] 2011-Present PPO [id number] 2011 Unknown [id number] 2006 Unknown [id number] 2006 Unknown [facility] [id number] Unknown [id number] Unknown [id number] Unknown [id number] Unknown [id number] Unknown [id number] Unknown [id number] Unknown [id number] Unknown [id number] Social History Date Type Detail Facility Start: 01-22-2012 Tobacco smoking stat us ALIS Current every day smoker [facility] Start: 08-13-1975 End: 12-05-2021 History of tobacco use Cigarette Smoker [facility] Start: 01-22-2012 Cigarettes smoked current (pack per day) - Reported [facility] Start: 01-22-2012 End: 01-25-2022 Alcohol intake Current non-drinker of alcohol (finding) [facility] Start: 1955 Sex Assigned At Not on file [facility] Start: 11-15-2021 End: 05-07-2023 Tobacco smoking status ALIS Unknown if ever smoked [facility] Start: 1955 Sex Assigned At Male [facility] Start: 04-05-2016 End: 12-07-2023 Tobacco smoking status NHIS Ex-smoker [facility] Start: 08-13-1975 End: 12-05-2021 History of tobacco use Current smoker [facility] Work Phone: Start: 04-05-2016 Tobacco use and exposure Smokeless tobacco non-user [facility] Work Phone: Start: 04-05-2016 Tobacco Comment quit 1 week ago [facility] Work Phone: Start: 01-15-2022 End: 01-25-2022 Exposure to SARS-CoV-2 (event) Not sure [facility] Work Phone: Start: 11-10-2024 End: 12-02-2024 Sex Male (finding) [facility] Sex Male [facility] Medical Equipment Procedure Code Equipment Code Equipment Origin al Text Equipment Identifier Dates Insertion, vascular access port ([id number]) Vascular port/catheter ([id number] FDA Start: 03-08-2022 Pen Needle, Diabetic 32 gauge x 1/6 needle Start: 12-07-2023 Pen Needle, Diabetic 32 gauge x 1/6 needle Start: 12-07-2023 Pen Needle, Diabetic 32 gauge x 1/6 needle Start: 12-07-2023 End: 12-04-2024 Pen Needle, Diabetic 32 gauge x 1/6 needle Start: 12-07-2023 End: 12-04-2024 Goals Date Patient Goal Desired Activity /State Functional Status Date Assessment Result Facility 12-07-2023 Functional status Ambulates [facility] Work Phone: 04-12-2022 Functional status Patient Activity Bedres t [facility] Work Phone: 04-12-2022 Functional status Activity Abili ty Standby Assist [facility] Work Phone: 04-11-2022 Functional status Assistive Devices None [facility] Work Phone: Mental Status Date Assessment Result Facility 12-07-2023 Cognitive function Voice/Name [facility] Work Phone: 12-06-2023 Cognitive function Level Of Cons ciousness Awake;Alert;Appropriate;Follow s Commands [facility] Work Phone: 05-26-2022 Cognitive function Voice/Name [facility] Work Phone: 04-12-2022 Cognitive function Voice/Name [facility] Work Phone: 03-08-2022 Cognitive function Voice/Name [facility] Work Phone: 12-29-2021 Cognitive function Level Of Cons ciousness Awake;Follows Commands [facility] Work Phone: 12-29-2021 Cognitive function Voice/Name [facility] Work Phone: 11-25-2021 Cognitive function Voice/Name [facility] Work Phone: Clinical Notes 01-26-2022 to 06-03-2025 Note Date & Type Note Facility 06-03-2025 Progress note [facility] 03-04-2025 Evaluation note Diagnosis Onset Date Resolution Cancer of lower lobe of right lung acute March 04, 2025 10:52am Cancer of lower lobe of right lung acute June 03 2:37pm [facility] Work Phone: 1(712) 583-268604-24-2025 Evaluation note* Diagnosis Onset Date Resolution Status Admit Date Cancer of lower lobe of righ t lung acute December 04, 2024 1:12pm Cancer of lower lobe of righ t lung acute March 04, 2025 10:52am [facility] Work Phone: 1(201) 741-468304-17-2025 Radiology Diagnostic study note [facility] Imaging Services [address] [place] [address] CT Chest AND Abd W/ Contrast MR#: [id number] Acct: [id number] Name: KATRAINA MELGOZA Rep #: [id number] : 1955 M 68 From: Axel Ho MD PCP: Dr. Connie Sun MD Status: REG CLI Study:CT Chest AND Abd W/ Contrast Date of Ex am: 11/27/24 Exam# [id number] Ordering Dr: Aileen Gibson MD PROCEDURE: CT CHEST AND ABD W/ CONTRAST 11/27/2024 REASON FOR EXAM: F/U NSCLC IV CONTRAST ONLY TECHNIQUE: Chest and abdomen CT with intravenous contrast. Coronal and Sagittal reconstruction series were provided. One or more dose reduction techniques were used (e.g., Automated exposure control, adjustment of the mA and/or kV according to patient size, use of iterative reconstruction technique. PATIENT PREPARATION: Per protocol ORAL CONTRAST TYPE: None. CONTRAST: Isovue 370 VOLUME: 100mL RADIATION DOSE SUMMARY: CTDlvol: 18.5 mGy DLP: 1207.45 mGycm COMPARISON: Comparison is made with prior study dated June 04, 2024. FINDINGS: CT CHEST: Hardware: None Lymph nodes: Small stable benign-appearing mediastinal lymph nodes. Heart and Vasculature: The heart is not enlarged. Minimal coronary artery calcification. Lungs and Airways: The patient is status post right lower lobectomy. Minimal scarring at the right lung base. Pleura: Unremarkable. CT ABDOMEN: Liver: Diffuse fatty infiltration. Gallbladder: Unremarkable Spleen: Normal size. Pancreas: Normal size without evidence of mass surrounding inflammation or ductal dilation. Adrenals: Unremarkable Kidneys: Normal renal sizes. No hydronephrosis. Bowel: Sigmoid diverticular disease. Lymph nodes: Unremarkable. Vasculature: Mild diffuse atherosclerotic calcifications are noted. 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 Peritoneum / Retroperitoneum: Small hiatal hernia. Bones: Degenerative changes of the spine. CT/CT Chest AND Abd W/ Contrast IMPRESSION: Stable examination. No acute abnormality is seen. Reading Location: [facility] CC: Dr. Connie Sun MD; Dr. Aileen Gibson MD ~ Mica Washer Gluer: Signed [facility]03-21-2025 Evaluation note* Diagnosis Onset Date Resolution Status Admit Date Hyperlipidemia acute October 9:20am Ischemic cardiomyopathy acute 2024 9:20am Non-small cell lung cancer (NSCLC) acute October 31, 2024 9:20am Atherosclerotic heart diseas e of [place] coronary artery without angina pectoris chronic October 31, 2024 9:20am Essential hypertension chronic [facility] 2024 9:20am [facility] Work Phone: 1(472) 736-841204-26-2024 Consult note Author Uriel Calderon [facility] December 07, 2023 11:26am Note Date/Time December 07, 2023 11: 26am [facility] Medical Records Department [address] [place] [address] Counseling Note - Pharmacy 12/07/23 1125 MR#: [id number] Acct: [id number] Name: KATARINA MELGOZA Rep #:[id number] : 1955 67 From: Uriel Calderon PCP: Dr. Connie Sun MD Status:ADM IN Y Location: [place] [address] Pharmacy [facility] has performed discharge medication reconciliation and counseling for this patient. The patient's discharge medication list was reviewed for discrepancies and discrepancies were resolved. The patient was counseled on the following discharge medications and changes in medications for homegoing were reviewed. The Reason for Use, instructions for use, and potential side effects were reviewed for all new medications. The patient's questions regarding all of their medications were answered. 1. Metformin 500 mg PO BID 2. Lantus 15 units daily 3. Lispro 6 units TID plus SSI The patient was able to verbally demonstrate an understanding of their dischargemedications. Medications at Discharge Home Medications aspirin 81 mg tablet,delayed release 81 mg PO DAILY@0800 [facility] 12/03/15 nitroglycerin 0.4 mg sublingual tablet 0.4 mg sublingual Q5M PRN Chest Pain #25 tabs 07/31/22 atorvastatin 40 mg tablet 40 mg PO QHS #90 tabs 10/24/23 lisinopril 5 mg tablet 5 mg PO DAILY #90 tabs 10/24/23 metoprolol tartrate 25 mg tablet 25 mg PO BID #180 tabs 10/24/23 dapagliflozin propanediol 10 mg tablet (Farxiga) 10 mg PO QAM #30 tabs 11/28/23 spironolactone 25 mg tablet 25 mg PO DAILY #30 tabs 11/28/23 omeprazole 20 mg tablet,delayed release 20 mg PO DAILY 12/06/23 insulin glargine 100 unit/mL subcutaneous solution 15 unit (0.15 mL) subcut DAILY #10 mL 12/07/23 insulin lispro 100 unit/mL subcutaneous pen (Humalog KwikPen (U-100) Insulin) 6 unit (0.06 mL) subcut TID #15 mL 12/07/23 insulin lispro 100 unit/mL subcutaneous pen (Humalog KwikPen (U-100) Insulin) See Protocol subcut ACHS #0 mL 12/07/23 metformin 500 mg tablet 500 mg PO BID 1 month #60 tabs 12/07/23 pen needle, diabetic 32 gauge x 08/18 #100 ea 12/07/23 12/07/23 1126 <Electronically signed by Uriel garcia> Date _ Uriel Granadosigner Signature (if applicable): Date CC: ~ Signed [facility] Work Phone: 1(872) 657-391604-26-2024 Discharge summary Author Jonatan Keller [facility] December 07, 2023 10:14am Note Date/Time December 07, 2023 10: 01am [facility] Medical Records Department [address] [place] [address] Instructions for Home/Discharge Instructions 12/07/23 1000 MR#: [id number] Acct: [id number] Name: KATARINA MELGOZA Rep #:[id number] : 1955 67 From: Jonatan Monte PCP: Dr. Connie Sun MD Status:ADM IN Discharge Instructions Diet Discharge Diet: Low fat / Low cholesterol and 1800 Calorie Control Diet Activity Discharge Activity: Return to Normal Activity Weight Bearing Status: Weight bearing as tolerated Dressing / Incision Call your doctor if you observe: Fever of 101 or Higher, Coldness, Increased Pain, Numbness or Tingling, Change in Color, Inability to urinate, Inability to have a bowel movement, Shortness of breath, Dizziness, Fainting spells, Swellingin the ankles, Chest pain, Prolonged hiccupping, Increased palpitations (irregular heartbeat) and Calf discomfort Follow Up Care When: IN 2 WEEKS Test Results: Test results from this visit will be discussed in further detail at your follow- up appointment, if applicable. Discharge Plan Admission Admit Date/Time: 12/06/23 21:40 Primary Reason for Your Visit: hyperglycemia, RADHA with hypertonic hyponatremia Attending Provider: Jonatan Keller Primary Care Provider: Connie Sun Consulting Providers: Olaf Salter Discharge Orders/Prescriptions Prescriptions: New insulin lispro [Humalog KwikPen Insulin] 100 unit/mL Insulin Pen See Protocol subcut ACHS Qty: 0 0RF Protocol: 4. Sliding Scale Insulin High-Med Dosing Condition: 150-199 mg/dl = 2 units Condition: 200-259 mg/dl = 4 units Condition: 260-324 mg/dl = 6 units Condition: 325-374 mg/dl = 8 units Condition: 375-409 mg/dl = 10 units Condition: 410-449 mg/dl = 11 units Condition: Greater than 449 call physician Protocol Text: - Use for Total Daily Dose of Insulin 56-80 units - Patient who are insulin resistant or septic HIGH MEDIUM DOSING ALGORITHM insulin glargine 100 unit/mL solution 15 unit subcut DAILY Qty: 10 5RF Rx Instructions: Hold if glucose less than 130 mg/dl insulin lispro [Humalog KwikPen Insulin] 100 unit/mL insulin pen 6 unit subcut TID Qty: 15 4RF Rx Instructions: Hold if glucose less than 130 mg/dl metformin 500 mg tablet 500 mg PO BID 30 Days Qty: 60 0RF Rx Instructions: Start from 12/10/2023 (DME) pen needle, diabetic 32 gauge x 1/6 needle See Rx Instructions .Route Qty: 100 1RF Rx Instructions: As directed Continued atorvastatin 40 mg tablet 40 mg PO QHS Qty: 90 4RF metoprolol tartrate 25 mg tablet 25 mg PO BID Qty: 180 3RF dapagliflozin propanediol [Farxiga] 10 mg tablet 10 mg PO QAM Qty: 30 6RF omeprazole 20 mg tablet,delayed release (DR/EC) 20 mg PO DAILY aspirin 81 MG tablet 81 mg PO DAILY@0800 nitroglycerin 0.4 mg tablet, sublingual 0.4 mg SUBLINGUAL Q5M PRN (Reason: Chest Pain) Qty: 25 3RF Rx Instructions: script never filled Held lisinopril 5 mg tablet 5 mg PO DAILY Qty: 90 4RF Hold Instructions: Hold for 3 days spironolactone 25 mg tablet 25 mg PO DAILY Qty: 30 6RF Hold Instructions: Hold for 5 days Referrals / Follow Up: Connie Sun MD [Primary Care Provider] - In 1 Week Disposition Disposition (needs filled in before D/C Order can be placed): Home, Self Care 12/07/23 1014<Electronically signed by Jonatan Keller MD>Jonatan Keller MD CC: Dr. Olaf Salter DO; Dr. Connie Sun MD ~ Signed [facility] Work Phone: 1(298) 123-806804-26-2024 Discharge summary Author Jonatan Keller [facility] December 07, 2023 12:55pm Note Date/Time December 07, 2023 12: 33pm [facility] Medical Records Department [address] [place] [address] Discharge Summary 12/07/23 1014 MR#: [id number] Acct: [id number] Name: KATARINA MELGOZA Rep #:[id number] : 1955 67 From: Jonatan Monte PCP: Dr. Connie Sun MD Status:ADM IN Location: [place] [address] Providers Date of Admission: 12/06/23 Date of Discharge: 12/07/23 Primary Care Physician: Dr. Connie Sun MD Reason For Visit: SEVERE HYPERGLYCEMIA WITH DEHYDRATION Diagnosis Discharge Diagnosis (1) Diabetes mellitus, new onset: Status: Acute Code(s): E11.9 - Type 2 diabetes mellitus without complications (2) Hyperkalemia: Status: Acute Code(s): E87.5 - Hyperkalemia Plan Patient is a 67-year-old male who presented to [facility] ED on 12/06/2023 with concern for new onset diabetes with severe hyperglycemia. Found severe hypoglycemia in oncology office, sent to ED and then admitted because of hyperglycemia 1. New onset diabetes mellitus with severe hyperglycemia, recent weight loss, acute dehydration ? Admit under inpatient status to PCU. Blood sugar 945 mg/dL on admit, no aniongap, no concern for DKA. A1c 12.1%. Has had significant improvement in blood sugars with Humalog subcu and IV fluid resuscitation. Will start Lantus 15 units at night, Humalog 5 units with meals plus sliding scale insulin, adjust asneeded. Continue IV fluid resuscitation through morning of 12/06. 12/06: Patient glucose came down with fasting blood sugar 168 on Lantus 15 units at night. A1c 12.1 %. With that high blood sugar it was decided to do discharged with insulin and discussed with the patient and his near the bedside and they agreed. Patient discharged on 15 units of Basaglar insulin at bedtime daily and 6 units of Fiasp insulin 3 times daily with meal along with Accu-Chek ACHS and sliding scale coverage. Advised to follow-up PCP in 1 week as he may need up titration of insulin. Glucometer insulin needle and other supplies prescriptions given. 2. Hyperkalemia ? Potassium 6.6 on admit. No EKG changes noted. Suspect due to RADHA from dehydration and worsened by home lisinopril and spironolactone. Given significant fluid resuscitation and insulin as noted above. Follow-up a.m. BMP. Holding home lisinopril and spironolactone. 12/06: It was related to hyperglycemia and RADHA. Repeat labs shows normal potassium 4.2. Hyperkalemia resolved. 3. RADHA ? Creatinine 2.21 on admit. Suspect prerenal RADHA due to dehydration. IV fluid resuscitation as noted above. Follow-up a.m. BMP and urine output. 12/06: Prerenal due to from hyperglycemia. 4. Pseudohyponatremia/hypertonic hyponatremia from hyperglycemia ? Sodium 118 on admit, corrected sodium 132. IV fluid resuscitation on admission as noted above. On repeat lab in the morning shows sodium 138. IV fluid discontinued. Hyponatremia resolved Chronic medical conditions: ? History of CAD with stenting, HFrEF with ischemic cardiomyopathy, HTN, HPL: Follows with [facility]. Recent echo on 11/26 showed EF 35%, stage I diastolic dysfunction, moderate segmental LV dysfunction similar to previous. Continue home aspirin, statin and beta-rolanda. Holding home lisinopril, spironolactone and dapagliflozin. ? History of lung cancer s/p LLL lobectomy and chemotherapy: Follows with outpatient oncology. Saw oncologist Dr. Gibson on 11/14/24. ? GERD: Continue home PPI. DVT prophylaxis: Heparin subcu CODE STATUS: Full code, verified Patient was admitted as inpatient due to dehydration, hyperglycemia, severe hyponatremia and RADHA but was discharged early because clinically symptoms got resolved and labs also improved. Because of sooner recovery than expected at time of admission patient is being discharged. Discharge medication reconciliation done. Discharge follow-up instructions completed. Discharge process discussed with the patient and all questions wereanswered to patient's satisfaction. Follow with PCP in 1 to 2 weeks Total time spent, exact 35 minutes on discharge meds reconciliation, examination, coordination of care with nurses and ancillary staff, review of imaging and blood test and discussion with the patient on follow-up instructions. Hemoglobin A1c 12.1 H, 12/06/23 17:43: Sodium 118 L*, Potassium 6.6 H*, Chloride 86 L, Carbon Dioxide 22.0, Anion Gap 10, BUN 42 H, Creatinine 1.79 H, Estim Creat Clear Calc 38.47, Est GFR (MDRD) Af Amer 49 L, Est GFR (MDRD) Non-Af 41 L, BUN/Creatinine Ratio 23.5 H, Glucose 776 H*, Calcium 10.2 H 12/06/23 19:51: POC Glucose 451 H* 12/06/23 22:37: POC Glucose 312 H 12/07/23 03:13: POC Glucose 197 H 12/07/23 06:38: WBC 9.2, RBC 4.18 L, Hgb 13.4, Hct 39.4 L, MCV 94.3 H, MCH 32.1 H, MCHC 34.0, RDW Std Deviation 44.3 H, RDW Coeff of Favio 12.8, Plt Count 196, MPV 12.0, Sodium 138, Potassium 4.2, Chloride 108 H, Carbon Dioxide 23.0, Anion Gap 7, BUN24 H, Creatinine 1.04, Estim Creat Clear Calc 66.21, Est GFR (MDRD) Af Amer 92, Est GFR (MDRD) Non-Af 76, BUN/Creatinine Ratio 23.1 H, Glucose 168 H, Calcium 8.6 Medications at Discharge Home Medications aspirin 81 mg tablet,delayed release 81 mg PO DAILY@0800 [facility] 12/03/15 nitroglycerin 0.4 mg sublingual tablet 0.4 mg sublingual Q5M PRN Chest Pain #25 tabs 07/31/22 atorvastatin 40 mg tablet 40 mg PO QHS #90 tabs 10/24/23 lisinopril 5 mg tablet 5 mg PO DAILY #90 tabs 10/24/23 metoprolol tartrate 25 mg tablet 25 mg PO BID #180 tabs 10/24/23 dapagliflozin propanediol 10 mg tablet (Farxiga) 10 mg PO QAM #30 tabs 11/28/23 spironolactone 25 mg tablet 25 mg PO DAILY #30 tabs 11/28/23 omeprazole 20 mg tablet,delayed release 20 mg PO DAILY 12/06/23 insulin aspart (niacinamide)(U-100) 100 unit/mL (3 mL) subcu cartridge (Fiasp Penfill U-100 Insulin) 6 unit subcut TID #15 mL 12/07/23 insulin glargine 100 unit/mL (3 mL) subcutaneous pen (Basaglar KwikPen U-100 Insulin) 15 unit (0.15 mL) subcut DAILY #15 mL 12/07/23 insulin lispro 100 unit/mL subcutaneous pen (Humalog KwikPen (U-100) Insulin) See Protocol subcut ACHS #0 mL 12/07/23 metformin 500 mg tablet 500 mg PO BID 1 month #60 tabs 12/07/23 pen needle, diabetic 32 gauge x 1/6 #100 ea 12/07/23 Physical Exam Narrative Patient was thirsty for 2 to 3 days before admission. Seen and examined General: Alert, Oriented x3, Cooperative HEENT: Atraumatic, PERRLA, EOMI, Normocephalic Oral: Oral mucosa moist. No Gingival or Mucosal Lesions/ Ulcerations Neck: Supple, No JVD, Negative Carotid Bruits Chest wall/Lungs: Air entry diminished in bilateral lung bases. No crepitation/rhonchi Cardiovascular: Regular rate, Regular Rhythm, Normal S1, Normal S2, No M/G/R Abdomen: Bowel Sounds Present, Soft, Non Tender, Non-Distended : No dysuria. No renal angle tenderness. No suprapubic tenderness. Extremities: No edema, Capillary Refill Less than 3 Seconds Skin: No rashes, No breakdown Musculoskeletal: No Tenderness to Palpation of Joints or Extremities Neurological: Cranial nerves II-XII grossly intact, DTR 2+/4. No acute focal neurological deficit. Psych/Mental Status: Normal Affect, Appropriate. Weight / BMI Weight Weight: 174 lb 13.225 oz Body Mass Index (BMI) 27.3 ABG / Lab / Microbiology Data 12/07/23 06:38 12/07/23 06:38 Laboratory: Laboratory Results - last 24 hr 12/06/23 16:53: Sodium Cancelled, Potassium Cancelled, Chloride Cancelled, Carbon Dioxide Cancelled, Anion Gap Cancelled, BUN Cancelled, Creatinine Cancelled, Estim Creat Clear Calc Cancelled, Est GFR (MDRD) Af Amer Cancelled, Est GFR (MDRD) Non-Af Cancelled, BUN/Creatinine Ratio Cancelled, Glucose Cancelled, Hemoglobin A1c 12.1 H, Calcium Cancelled 12/06/23 17:43: Sodium 118 L*, Potassium 6.6 H*, Chloride 86 L, Carbon Dioxide 22.0, Anion Gap 10, BUN 42 H, Creatinine 1.79 H, Estim Creat Clear Calc 38.47, Est GFR (MDRD) Af Amer 49 L, Est GFR (MDRD) Non-Af 41 L, BUN/Creatinine Ratio 23.5 H, Glucose 776 H*, Calcium 10.2 H 12/06/23 19:51: POC Glucose 451 H* 12/06/23 22:37: POC Glucose 312 H 12/07/23 03:13: POC Glucose 197 H 12/07/23 06:38: WBC 9.2, RBC 4.18 L, Hgb 13.4, Hct 39.4 L, MCV 94.3 H, MCH 32.1 H, MCHC 34.0, RDW Std Deviation 44.3 H, RDW Coeff of Favio 12.8, Plt Count 196, MPV 12.0, Sodium 138, Potassium 4.2, Chloride 108 H, Carbon Dioxide 23.0, Anion Gap 7, BUN 24 H, Creatinine 1.04, Estim Creat Clear Calc 66.21, Est GFR (MDRD) Af Amer 92, Est GFR (MDRD) Non-Af 76, BUN/Creatinine Ratio 23.1 H, Glucose 168 H, Calcium 8.6 12/07/23 08:17: POC Glucose 211 H D/C Instructions Discharge Diet: Low fat / Low cholesterol and 1800 Calorie Control Diet Weight Bearing Status: Weight bearing as tolerated Call your doctor if you observe: Fever of 101 or Higher, Coldness, Increased Pain, Numbness or Tingling, Change in Color, Inability to urinate, Inability to have a bowel movement, Shortness of breath, Dizziness, Fainting spells, Swellingin the ankles, Chest pain, Prolonged hiccupping, Increased palpitations (irregular heartbeat) and Calf discomfort When: IN 2 WEEKS Meaningful Use Info Meaningful Use Meaningful Use Diagnoses (Choose all that apply): None applicable Ischemic Stroke Statin Dosing Therapy Reference: STATIN DOSE THERAPY REFERENCE: * Patients > 75 years receive moderate or high dose statin therapy. * Patients 75 years or YOUNGER should receive HIGH intensity statin dose unless contraindicated. You will be required to document reason for non-treatment if statin daily dose does not meet guidelines. HIGH DOSE STATIN THERAPY DAILY Atorvastatin > than or = to 40 mg Rosuvastatin > than or = to 20 mg Amlodipine + Atorvastatin > than or = to 2.5/40 mg Ezetimibe + Simvastatin 10/80 mg Simvastatin 80mg Discharge Plan Admission Admit Date/Time: 12/06/23 21:40 Primary Reason for Your Visit: hyperglycemia, RADHA with hypertonic hyponatremia Attending Provider: Jonatan Keller Primary Care Provider: Connie Sun Consulting Providers: Olaf Salter Discharge Orders/Prescriptions Prescriptions: New insulin lispro [Humalog KwikPen Insulin] 100 unit/mL Insulin Pen See Protocol subcut ACHS Qty: 0 0RF Protocol: 4. Sliding Scale Insulin High-Med Dosing Condition: 150-199 mg/dl = 2 units Condition: 200-259 mg/dl = 4 units Condition: 260-324 mg/dl = 6 units Condition: 325-374 mg/dl = 8 units Condition: 375-409 mg/dl = 10 units Condition: 410-449 mg/dl = 11 units Condition: Greater than 449 call physician Protocol Text: - Use for Total Daily Dose of Insulin 56-80 units - Patient who are insulin resistant or septic HIGH MEDIUM DOSING ALGORITHM metformin 500 mg tablet 500 mg PO BID 30 Days Qty: 60 0RF Rx Instructions: Start from 12/10/2023 (DME) pen needle, diabetic 32 gauge x 1/6 needle See Rx Instructions .Route Qty: 100 1RF Rx Instructions: As directed insulin glargine [Basaglar KwikPen U-100 Insulin] 100 unit/mL (3 mL) insulin pen 15 unit subcut DAILY Qty: 15 3RF Rx Instructions: Hold if glucose less than 130 mg/dl Fiasp Penfill U-100 Insulin 100 unit/mL (3 mL) cartridge 6 unit subcut TID Qty: 15 3RF Rx Instructions: Hold if glucose less than 130 mg/dl Continued atorvastatin 40 mg tablet 40 mg PO QHS Qty: 90 4RF metoprolol tartrate 25 mg tablet 25 mg PO BID Qty: 180 3RF dapagliflozin propanediol [Farxiga] 10 mg tablet 10 mg PO QAM Qty: 30 6RF omeprazole 20 mg tablet,delayed release (DR/EC) 20 mg PO DAILY aspirin 81 MG tablet 81 mg PO DAILY@0800 nitroglycerin 0.4 mg tablet, sublingual 0.4 mg SUBLINGUAL Q5M PRN (Reason: Chest Pain) Qty: 25 3RF Rx Instructions: script never filled Held lisinopril 5 mg tablet 5 mg PO DAILY Qty: 90 4RF Hold Instructions: Hold for 3 days spironolactone 25 mg tablet 25 mg PO DAILY Qty: 30 6RF Hold Instructions: Hold for 5 days Referrals / Follow Up: Connie Sun MD [Primary Care Provider] - In 1 Week Disposition Disposition (needs filled in before D/C Order can be placed): Home, Self Care Charges/Coding Visit Charges Inpatient E&M: 22776 Disch Hosp >30min 12/07/23 1255 <Electronically signed by Jonatan Keller MD> Cosigner Signature (if applicable): CC: Dr. Connie Sun MD; Dr. Jonatan Keller MD~ Signed [facility] Work Phone: 1(757) 351-641104-26-2024 History and physical note [facility] December 07, 2023 6:44am Note Date/Time December 06, 2023 8:2 8pm [facility] Medical Records Department [address] [place] [address] H&P Exam - Hospitalist 12/06/232027 MR#: [id number] Acct: [id number] Name: KATARINA MELGOZA Rep #:[id number] : 1955 67 From: Olaf arango DO PCP: Dr. Connie Sun MD Status:ADM IN Location: [facility] [id number] HPI - General General Date of Admission: 12/06/23 Date of Service: 12/06/23 Chief Complaint: New onset diabetes mellitus with severe hyperglycemia HPI Narrative KATARINA MELGOZA, is a 67 M who presented to [facility] ED on 12/06/2023 with concern for new onset diabetes with severe hyperglycemia. Patientsaw his oncologist Dr. Gallagher on the morning of 12/05 for an office visit, has history of lung cancer with left lower lobe lobectomy and chemotherapy completedin 2021, cancer remains in remission. He noted to Dr. Gallagher that he had lost about 20 pounds in the last several weeks and had significant increased thirst and urination over that timeframe. He had labs drawn there that showed a blood sugar of 945 as well as an RADHA, so he was sent to the ED for further evaluation. He notably had no anion gap on his labs, no concern for DKA. Had significant pseudohyponatremia and RADHA with hyperkalemia with potassium 6.6. Labs were otherwise fairly benign. Patient did have mild hypotension in the ED. Was given significant volume resuscitation in the ED as well as a dose of Humalog subcu with with improvement in his blood pressure and blood sugar level. He wasthen admitted for further management. Patient denies any history of diabetes orprediabetes that he is aware of. He denies any abdominal pain or discomfort. No other acute concerns at this time. [facility] Medical History Anemia Atherosclerotic heart disease of [place] coronary artery without angina pectoris Bradycardia Cancer of lower lobe of right lung Cardiology follow-up encounter Chronic systolic congestive heart failure CINV (chemotherapy-induced nausea and vomiting) Dehydration Diarrhea Drug induced neutropenia Encounter for chemotherapy management Encounter for education Essential hypertension Former smoker Hiccups History of echocardiogram History of stress test Hyperlipidemia Hypokalemia Ischemic cardiomyopathy Kidney stones Leg pain, bilateral Non-ST elevated myocardial infarction (non-STEMI) (~11/2015) Old myocardial infarction Preoperative cardiovascular examination Presence of stent in coronary artery (~11/30/15) Restless leg Tobacco use Weakness Wears dentures Home Medications aspirin 81 mg tablet,delayed release 81 mg PO DAILY@0800 heart health 12/03/15 [History Last Taken 04/09/22] nitroglycerin 0.4 mg sublingual tablet 0.4 mg sublingual Q5M PRN Chest Pain #25 tabs 07/31/22 [Rx Last Taken Unknown] atorvastatin 40 mg tablet 40 mg PO QHS #90 tabs 10/24/23 [Rx Last Taken Unknown] lisinopril 5 mg tablet 5 mg PO DAILY #90 tabs 10/24/23 [Rx Last Taken Unknown] metoprolol tartrate 25 mg tablet 25 mg PO BID #180 tabs 10/24/23 [Rx Last Taken Unknown] dapagliflozin propanediol 10 mg tablet (Farxiga) 10 mg PO QAM #30 tabs 11/28/23 [Rx Last Taken Unknown] spironolactone 25 mg tablet 25 mg PO DAILY #30 tabs 11/28/23 [Rx Last Taken Unknown] omeprazole 20 mg tablet,delayed release 20 mg PO DAILY 12/06/23 [History Last Taken Unknown] Allergy/AdvReac Type Severity Reaction Status Date / Time No Known Allergies Allergy Verified 12/06/23 15:19 Family History Grandfather CAD (coronary artery disease) Brother Cancer Surgical History History of bronchoscopy History of coronary artery stent placement Presence of coronary angioplasty implant and graft (~11/30/15) S/P right rotator cuff repair Status post lobectomy of lung Social History Smoking Status: Former smoker quit date: 12/05/21 Tobacco: How many years used: 45 how long ago did patient quit smoking: smoked [id number] years, 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 alcohol intake: never substance use type: does not use caffeine: Yes Type: carbonated beverages Number of servings: 2 what type of physical activity do you participate in: none seatbelt use: always do you feel safe at home: Yes ROS Constitutional Constitutional: Reports change in weight and fatigue; Denies chills, fever(s) orweakness Eyes Eyes: Denies change in vision Cardiovascular Cardiovascular: Denies chest pain, lightheadedness or palpitations Respiratory/Chest Respiratory/Chest: Denies cough, shortness of breath at rest or wheezing Gastrointestinal Gastrointestinal: Reports nausea; Denies abdominal pain, constipation, diarrhea or vomiting Genitourinary Genitourinary: Reports urinary frequency; Denies dysuria Neurologic Neurologic: Denies dizziness or focal weakness Vital Signs Vital Signs Vital Signs: 12/06/23 15:20 12/06/23 16:35 12/06/23 17:56 Temperature 96.8 F L Temperature Source Temporal Pulse Rate 79 68 Respiratory Rate 18 7 L Respiratory Effort Normal Non-Labored Respiratory Pattern Normal Blood Pressure 113/74 124/74 H Blood Pressure Mean 87 90 Pulse Ox 93 93 Oxygen Delivery Method Room Air Room Air 12/06/23 18:43 12/06/23 19:58 12/06/23 19:01 Temperature 97.9 F Temperature Source Pulse Rate 73 113 H 99 Respiratory Rate 11 L 18 18 Respiratory Effort Respiratory Pattern Normal Blood Pressure 109/71 111/73 Blood Pressure Mean 83 85 Pulse Ox 98 98 Oxygen Delivery Method Room Air Weight Weight: 78.925 kg Body Mass Index (BMI) 27.2 Physical Exam Const alert, oriented x3, no apparent distress and average body habitus Constitutional Narrative: Pleasant middle-age male, overweight, otherwise sitting up comfortably in bed, conversing normally, in no acute distress. General Appearance: cooperative and comfortable HEENT normocephalic, head/scalp atraumatic, hearing grossly normal bilaterally and nasal mucous membranes and turbinates normal Eyes PERRL, EOMs intact bilaterally and conjunctivae normal Neck full ROM Chest inspection of chest normal Resp normal respiratory effort, normal air movement, no use of accessory muscles and clear to auscultation bilaterally Cardio regular rate, regular rhythm, no murmurs and peripheral pulses 2+ throughout GI normal to inspection, nondistended, normoactive bowel sounds, soft to palpation,non-tender and non-distended Back/Spine normal ROM Extremity normal to inspection, full ROM and no pedal edema Skin no rashes or lesions noted Neuro moves all extremities and no focal motor deficits Speech: speech normal Psych mental status grossly normal Results Lab / Micro Data 12/06/23 17:43 Labs: Laboratory Results - last 24 hr 12/06/23 16:53: Sodium Cancelled, Potassium Cancelled, Chloride Cancelled, Carbon Dioxide Cancelled, Anion Gap Cancelled, BUN Cancelled, Creatinine Cancelled, Estim Creat Clear Calc Cancelled, Est GFR (MDRD) Af Amer Cancelled, Est GFR (MDRD) Non-Af Cancelled, BUN/Creatinine Ratio Cancelled, Glucose Cancelled, Hemoglobin A1c 12.1 H, Calcium Cancelled 12/06/23 17:43: Sodium 118 L*, Potassium 6.6 H*, Chloride 86 L, Carbon Dioxide 22.0, Anion Gap 10, BUN 42 H, Creatinine 1.79 H, Estim Creat Clear Calc 38.47, Est GFR (MDRD) Af Amer 49 L, Est GFR (MDRD) Non-Af 41 L, BUN/Creatinine Ratio 23.5 H, Glucose 776 H*, Calcium 10.2 H 12/06/23 19:51: POC Glucose 451 H* Assessment & Plan Assessment/Plan (1) Diabetes mellitus, new onset: (2) Hyperkalemia: PLAN: Plan Patient is a 67-year-old male who presented to [facility] ED on 12/06/2023 with concern for new onset diabetes with severe hyperglycemia. 1. New onset diabetes mellitus with severe hyperglycemia, recent weight loss, acute dehydration ? Admit under inpatient status to PCU. Blood sugar over 900 on admit, no anion gap, no concern for DKA. A1c 12.1%. Has had significant improvement in blood sugars with Humalog subcu and IV fluid resuscitation. Will start Lantus 15 units at night, Humalog 5 units with meals plus sliding scale insulin, adjust asneeded. Continue IV fluid resuscitation through morning of 12/06. Monitor closely. 2. Hyperkalemia ? Potassium 6.6 on admit. No EKG changes noted. Suspect due to RADHA from dehydration and worsened by home lisinopril and spironolactone. Given significant fluid resuscitation and insulin as noted above. Follow-up a.m. BMP. Holding home lisinopril and spironolactone. 3. RADHA ? Creatinine 2.21 on admit. Suspect prerenal RADHA due to dehydration. IV fluid resuscitation as noted above. Follow-up a.m. BMP and urine output. 4. Pseudohyponatremia ? Sodium 118 on admit, corrected sodium 132. IV fluid resuscitation on admission as noted above. Follow-up a.m. BMP. Chronic medical conditions: ? History of CAD with stenting, HFrEF with ischemic cardiomyopathy, HTN, HPL: Follows with [facility]. Recent echo on 11/26 showed EF 35%, stage I diastolic dysfunction, moderate segmental LV dysfunction similar to previous. Continue home aspirin, statin and beta-rolanda. Holding home lisinopril, spironolactone and dapagliflozin. ? History of lung cancer s/p LLL lobectomy and chemotherapy: Follows with outpatient oncology. Intermission. ? GERD: Continue home PPI. DVT prophylaxis: Heparin subcu CODE STATUS: Full code, verified Expected disposition: Home, 2 to 3 days Total clinical time spent by myself addressing the patient's medical issues, reviewing all the data, and collaborating with patient's care team: 55 minutes. Charges/Coding Visit Charges Inpatient E&M: 23197 Init Hosp L2 12/07/23 0644 <Electronically signed by Olaf Salter DO> Cosigner Signature (if applicable): CC: Dr. Olaf Salter DO; Dr. Connie Sun MD~ Signed [facility] Work Phone: 1(591) 501-520404-26-2024 Discharge summary Author Natty Bowling [facility] December 06, 2023 11:08pm Note Date/Time December 06, 2023 4:4 9pm [facility] Medical Records Department [address] [place] [address] Emergency Department Summary 12/06/23 MR#: [id number] Acct: [id number] Name: KATARINA MELGOZA Rep #:[id number] : 1955 67 From: Natty Bowling MD PCP: Dr. Connie Sun MD Status:ADM IN Location: [place] [address] HPI History of Present Illness Chief Complaint: Hyperglycemia Informant: patient Narrative Narrative: Patient presents secondary to abnormal blood work. Patient went for his routinefollow-up with oncology today. They noted that he had lost 20 pounds in the last 3 months and he was complaining of increased thirst and urination for the past 2 weeks. He was sent for lab work which indicated a blood sugar of 945 with a BUN of 39 and creatinine 2.21. Patient has no known history of diabetes. Patient was treated for lung cancer with chemotherapy completed in 2021. He currently is seen every [address] scan and follow-up visit. [facility] Medical History (Updated 12/06/23 @ 19:[address] Natty Bowling MD) Anemia Atherosclerotic heart disease of [place] coronary artery without angina pectoris Bradycardia Cancer of lower lobe of right lung Cardiology follow-up encounter Chronic systolic congestive heart failure CINV (chemotherapy-induced nausea and vomiting) Dehydration Diarrhea Drug induced neutropenia Encounter for chemotherapy management Encounter for education Essential hypertension Former smoker Hiccups History of echocardiogram History of stress test Hyperlipidemia Hypokalemia Ischemic cardiomyopathy Kidney stones Leg pain, bilateral Non-ST elevated myocardial infarction (non-STEMI) (~11/2015) Old myocardial infarction Preoperative cardiovascular examination Presence of stent in coronary artery (~11/30/15) Restless leg Tobacco use Weakness Wears dentures Home Medications aspirin 81 mg tablet,delayed release 81 mg PO DAILY@0800 [facility] 12/03/15 [History Last Taken 04/09/22] nitroglycerin 0.4 mg sublingual tablet 0.4 mg sublingual Q5M PRN Chest Pain #25 tabs 07/31/22 [Rx Last Taken Unknown] atorvastatin 40 mg tablet 40 mg PO QHS #90 tabs 10/24/23 [Rx Last Taken Unknown] lisinopril 5 mg tablet 5 mg PO DAILY #90 tabs 10/24/23 [Rx Last Taken Unknown] metoprolol tartrate 25 mg tablet 25 mg PO BID #180 tabs 10/24/23 [Rx Last Taken Unknown] dapagliflozin propanediol 10 mg tablet (Farxiga) 10 mg PO QAM #30 tabs 11/28/23 [Rx Last Taken Unknown] spironolactone 25 mg tablet 25 mg PO DAILY #30 tabs 11/28/23 [Rx Last Taken Unknown] omeprazole 20 mg tablet,delayed release 20 mg PO DAILY 12/06/23 [History Last Taken Unknown] Allergy/AdvReac Type Severity Reaction Status Date / Time No Known Allergies Allergy Verified 12/06/23 15:19 Family History Grandfather CAD (coronary artery disease) Brother Cancer Surgical History History of bronchoscopy History of coronary artery stent placement Presence of coronary angioplasty implant and graft (~11/30/15) S/P right rotator cuff repair Status post lobectomy of lung Social History Smoking Status: Former smoker quit date: 12/05/21 Tobacco: How many years used: 45 how long ago did patient quit smoking: smoked 0.1ngux61 years, 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 alcohol intake: never substance use type: does not use caffeine: Yes Type: carbonated beverages Number of servings: 2 what type of physical activity do you participate in: none seatbelt use: always do you feel safe at home: Yes ROS ROS ED Constitutional Constitutional ED: Denies chills or fever(s) Eyes Eyes: Denies change in vision or discharge from eye(s) ENT ENT ED: Denies discharge from eye(s), rhinorrhea or sore throat Cardiovascular Cardiovascular: Denies chest pain or palpitations Respiratory/Chest Respiratory/Chest: Denies cough or dyspnea Gastrointestinal Gastrointestinal: Denies abdominal pain, diarrhea, nausea or vomiting Genitourinary Genitourinary ED: Reports urinary frequency; Denies dysuria Musculoskeletal Musculoskeletal: Denies back pain or extremity pain Integumentary Denies Abrasions or rash Neurologic Neurologic: Denies headache(s) or weakness Psychiatric Psychiatric: Denies anxiety or depression Endocrine Endocrinology: Reports polydipsia and polyuria Allergic/Immunologic Allergic/Immunologic ED: Denies lip swelling or urticaria EXAM Physical Exam Const Vital Signs: 12/06/23 15:20 12/06/23 16:35 12/06/23 17:56 Temperature 96.8 F L Temperature Source Temporal Pulse Rate 79 68 Respiratory Rate 18 7 L Respiratory Effort Normal Non-Labored Respiratory Pattern Normal Blood Pressure 113/74 124/74 H Blood Pressure Mean 87 90 Pulse Ox 93 93 Oxygen Delivery Method Room Air Room Air 12/06/23 18:43 Temperature Temperature Source Pulse Rate 73 Respiratory Rate 11 L Respiratory Effort Respiratory Pattern Blood Pressure 109/71 Blood Pressure Mean 83 Pulse Ox 98 Oxygen Delivery Method Room Air Positive well nourished and well developed General Appearance ED: well developed HEENT Reports dry mucous membranes Mouth ED: Yes dry mucous membranes Mouth: dry mucous membranes Eyes EOMs intact bilaterally Chest Wall inspection of chest normal and palpation of chest normal Resp normal respiratory effort and clear to auscultation bilaterally Cardio regular rate and regular rhythm GI non-tender Auscultation: hypoactive bowel sounds Palpation: soft Extremity normal to inspection Neuro oriented x3 and no sensory deficits noted Motor Exam: strength 5/5 throughout Psych mental status grossly normal Skin no rashes or lesions noted MDM MDM MDM Narrative Medical decision making narrative: Lab work from earlier today is reviewed. IV line will be established and we will repeat the BMP and add a hemoglobin A1c. Patient is initially ordered 2 L of IV fluid. History & Record Review Discussion w/independent historian: Patient and Significant other Additional record(s) reviewed:: Prior labs Lab Data Labs: Laboratory Results - last 24 hr 12/06/23 12/06/23 16:53 17:43 Sodium Cancelled 118 L* Potassium Cancelled 6.6 H* Chloride Cancelled 86 L Carbon Dioxide Cancelled 22.0 Anion Gap Cancelled 10 BUN Cancelled 42 H Creatinine Cancelled 1.79 H Estim Creat Clear Calc Cancelled 38.47 Est GFR (MDRD) Af Amer Cancelled 49 L Est GFR (MDRD) Non-Af Cancelled 41 L BUN/Creatinine Ratio Cancelled 23.5 H Glucose Cancelled 776 H* Hemoglobin A1c 12.1 H Calcium Cancelled 10.2 H Treatment and Re-Evaluation :: Hemoglobin A1c returns elevated at 12.1. Chemistry studies reveal a glucose of 776 with a sodium of 118. Potassium is elevated at 6.6 with no reported hemolysis. BUN is 42 and creatinine is 1.79. Patient is given 10 units of insulin IV for hyperkalemia as well as albuterol. Kayexalate was ordered, however he was unable to tolerate this orally. Patient is currently finishing up his 2 L normal saline. I was notified by nursing staff that the patient's blood sugar is currently 451. This is after receiving 2 units of normal saline as well as 10 units IV insulinfor his hyperkalemia. I will speak with hospitalist regarding admission. Discharge Plan Dx/Rx/DC Orders Clinical Impression: Hyperglycemia, Diabetes mellitus, new onset, Hyperkalemia Disposition Disposition: Acute Care [facility] What to do if you have Problems For any increased pain, shortness of breath, bleeding, nausea or vomiting, chestpain, or any unexpected problems, contact your Primary Care Provider. Call [facility] ([phone]) or report to the closest Emergency Room. Call 911 if necessary. 12/06/232307 <Electronically signed by Natty Bowling MD> Cosigner Signature (if applicable): CC: Dr. Connie Sun MD ~ Signed [facility] Work Phone: 1(543) 115-683906-17-2022 History of Present illness Narrative* Joaquin Altman MD - 01/27/2022 4:38 PM EDT Chest tube removed. Patient tolerated well. Plan to d/c home. Joaquin Altman MD General Surgery, PGY-4 01/27/2022 4:38 PM * Shelia Bustos DTR - 01/27/2022 11:45 AM EDT Nutrition rescreen completed. Chart reviewed. Patient to be monitored and followed by the diet solar thermal technician. * Joaquin Altman MD - 01/26/2022 6:30 AM EDT Images from the original note were not included. Department of Surgery - Progress Note - CTS PATIENT NAME: Katarina Melgoza ADMIT DATE: 01/25/2022 TODAY'S DATE: 01/26/2022 CURRENT ROOM: [address] [place] [address] PAST 24 HOUR EVENTS / SUBJECTIVE NAEO. [...] Date 01/26/22 0000 - 01/26/22 2359 Shift [id number] 5501-6987 3548-1971 24 Hour Total INTAKE Shift Total OUTPUT [...] PGY-4 01/26/2022 6:30 AM Associated attestation - Aleksey Campa DO - 01/27/2022 8:46 AM EDT ATTESTATION The patient was seen and examined. I have reviewed the patients presentation, histories, imaging and serology studies. I agree with the above assessment and plan. My date of service is 01/26/2022. Doing well postop. Has not been OOB/ambulating yet. Ready to do so. I (Aleksey Campa) personally supervised the resident in the [...] unless otherwise noted and personally reviewed the imagingand labs. This note may be a delayed entry. All of the patient's questions were answered. The patient was seen and examined independently and relevant data reviewed by myself. A full chart review was performed. Electronically signed by Aleksey Campa DO. documented in this encounterSUMPGP Corporation Work Phone: 1(394) 968-327306-16-2022 Hospital Discharge instructions* Instructions* Joaquin Altman MD - 01/26/2022 Images from the original [...] -Chest pain. -Abdominal distention. documented in this encounterSUMPGP Corporation Work Phone: 1(544) 532-796006-16-2022 NoteDischarge Summary Katarina Melgoza : 1955 ADMIT DATE: 01/25/2022 DISCHARGE DATE: 01/27/22 PRIMARY CARE PHYSICIAN: GEORGE CUTLER VISIT STATUS: Admission CODE STATUS: Full [...] List Diagnosis ? Coronary artery disease involving [place] coronary artery without angina pectoris ? S/P [...] Your Medications These medications were sent to [facility] [address] - [phone] - F [phone] [facility] [address] ? oxyCODONE 5 MG immediate release tablet [...] CARE AGENCY NAME: n/a Follow up with George [address] [facility] [address] Aleksey Campa DO [address] [place] [address] [address] [facility] [address] On 02/07/2022 10:30am - f/u pathology and incision check/stitch removal SIGNED: Joaquin Altman MD 01/27/2022, 4:47 [facility] Onset Date Resolution Status Mass of lung acute Nicotine dependence, cigarettes, uncomplicated acute Hyperlipidemia acute Ischemic cardiomyopathy acut e Preoperative cardiovascular examination acute Atherosclerotic heart diseas e of [place] coronary artery without angina pectoris chronic Essential hypertension chron ic Presence of stent in coronary artery November, chronic Mass of lung acute [facility] Work Phone: Evaluation note* Diagnosis Onset Date Resolution Status Hyperlipidemia acute Ischemic cardiomyopathy acut e Preoperative cardiovascular examination acute Atherosclerotic heart diseas e of [place] coronary artery without angina pectoris chronic Essential hypertension chron ic Presence of stent in coronary artery November, chronic Mass of lung acute Adenocarcinoma of lung acute [facility] Work Phone: Evaluation note* Diagnosis Onset Date Resolution Status Hyperlipidemia acute Ischemic cardiomyopathy acut e Preoperative cardiovascular examination acute Atherosclerotic heart diseas e of [place] coronary artery without angina pectoris chronic Essential hypertension chron ic Presence of stent in coronary artery November, chronic Cancer of lower lobe of right lung acute [facility] Work Phone: Evaluation note* Diagnosis Onset Date Resolution Status Cancer of lower lobe of right lung acute Mediastinal lymphadenopathy acute Mild chronic obstructive pulmonary disease chronic [facility] Work Phone: Evaluation note* Diagnosis Onset Date Resolution Status Cancer of lower lobe of right lung acute Mediastinal lymphadenopathy acute Mild chronic obstructive pulmonary disease chronic Cancer of lower lobe of right lung acute Cancer of lower lobe of right lung acute Mediastinal lymphadenopathy acute [facility] Work Phone: Evaluation note* Diagnosis Lung nodule- Primary Solitary pulmonary nodule [facility] Work [facility]: Evaluation note* Diagnosis Onset Date Resolution Status Cancer of lower lobe of right lung acute Mediastinal lymphadenopathy acute Mild chronic obstructive pulmonary disease chronic Cancer of lower lobe of right lung acute Cancer of lower lobe of right lung acute Mediastinal lymphadenopathy acute Cancer of lower lobe of right lung acute Cancer of lower lobe of right lung acute Cancer of lower lobe of right lung acute Mild chronic obstructive pulmonary disease chronic Cancer of lower lobe of right lung acute Encounter for insertion of venous access port acute Cancer of lower lobe of right lung acute Encounter for education acut e [facility] Work Phone: evaluation note* Diagnosis Onset Date Resolution Status Mediastinal lymphadenopathy acute Mild chronic obstructive pulmonary disease chronic Cancer of lower lobe of right lung acute Cancer of lower lobe of right lung acute Mediastinal lymphadenopathy acute Cancer of lower lobe of right lung acute Cancer of lower lobe of right lung acute Cancer of lower lobe of right lung acute Mild chronic obstructive pulmonary disease chronic Cancer of lower lobe of right lung acute Encounter for insertion of venous access port acute Cancer of lower lobe of right lung acute Encounter for education acut e Cancer of lower lobe of right lung acute Cancer of lower lobe of right lung acute CINV (chemotherapy-induced nausea and vomiting) acute Hiccups acute Cancer of lower lobe of right lung acute CINV (chemotherapy-induced nausea and vomiting) acute Encounter for chemotherapy management acute Hiccups acute Acute upper GI bleed acute RADHA (acute kidney injury) ac [place] CINV (chemotherapy-induced nausea and vomiting) acute Leukocytosis acute Non-small cell lung cancer (NSCLC) acute Transient hypotension acute Vomiting acute [facility] Work Phone: Evaluation note* Diagnosis Onset Date Resolution Status Mediastinal lymphadenopathy acute Mild chronic obstructive pulmonary disease chronic Cancer of lower lobe of right lung acute Cancer of lower lobe of right lung acute Mediastinal lymphadenopathy acute Cancer of lower lobe of right lung acute Cancer of lower lobe of right lung acute Cancer of lower lobe of right lung acute Mild chronic obstructive pulmonary disease chronic Cancer of lower lobe of right lung acute Encounter for insertion of venous access port acute Cancer of lower lobe of right lung acute Encounter for education acut e Cancer of lower lobe of right lung acute Cancer of lower lobe of right lung acute CINV (chemotherapy-induced nausea and vomiting) acute Hiccups acute Cancer of lower lobe of right lung acute CINV (chemotherapy-induced nausea and vomiting) acute Encounter for chemotherapy management acute Hiccups acute Acute upper GI bleed acute RADHA (acute kidney injury) ac [place] Cancer of lower lobe of right lung acute CINV (chemotherapy-induced nausea and vomiting) acute Leukocytosis acute Non-small cell lung cancer (NSCLC) acute Transient hypotension acute Vomiting acute [facility] Work Phone: Evaluation note* Diagnosis Onset Date Resolution Status Cancer of lower lobe of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 CARBO/TAXOL 1WK LABS TOX CHECK 1WK LABS TOX CHECK 6 wk FU 1WK LABS H FU ACUTE - NO LABS - PAIN IN LEGS [facility] infusion LUNG CA *IV CONTRAST ONLY* WEAKNESS/RX HERE Reason for Visit Cancer of lower lobe of right lung Hiccups CINV (chemotherapy-induced nausea and vomiting) Cancer of lower lobe of right lung Encounter for chemotherapy management Hiccups CINV (chemotherapy-induced nausea and vomiting) Cancer of lower lobe of right lung Leukocytosis Non-small cell lung cancer (NSCLC) Acute upper GI bleed RADHA (acute kidney injury) CINV (chemotherapy-induced nausea and vomiting) Transient hypotension Vomiting Cancer of lower lobe of right lung CINV (chemotherapy-induced nausea and vomiting) Cancer of lower lobe of right lung Hyperlipidemia Ischemic cardiomyopathy Atherosclerotic heart disease of [place] coronary artery without angina pectoris Essential hypertension Presence of stent in coronary artery Cancer of lower lobe of right lung CINV (chemotherapy-induced nausea and vomiting) Dehydration Drug induced neutropenia Cancer of lower lobe of right lung CINV (chemotherapy-induced nausea and vomiting) Dehydration Diarrhea Hypokalemia Cancer of lower lobe of right lung Cancer of lower lobe of right lung Cancer of lower lobe of right lung Restless leg Anemia Hyperlipidemia Ischemic cardiomyopathy Atherosclerotic heart disease of [place] coronary artery without angina pectoris Essential hypertension Presence of stent in coronary artery Cancer of lower lobe of right lung Anemia Cancer of lower lobe of right lung Leg pain, bilateral Weakness Chief Complaint 3 MO - LABS [facility] infusion 1 Y FU PREV PFM PT CHEST PAIN CHEST PAIN Reason for Visit Cancer of lower lobe of right lung Chest pain Hyperlipidemia Ischemic cardiomyopathy Atherosclerotic heart disease of [place] coronary artery without angina pectoris Essential hypertension Presence of stent in coronary artery Chief Complaint 1 Y FU PREV PFM PT CHEST PAIN CHEST PAIN CANCER SCREENING 3MO F/U -LABS- REVIEW CT [facility] infusion INFRARENAL ABD AORTIC ANEURYSM Reason for Visit Chest pain Hyperlipidemia Ischemic cardiomyopathy Atherosclerotic heart disease of [place] coronary artery without angina pectoris Essential hypertension Presence of stent in coronary artery Cancer of lower lobe of right lung Chief Complaint LUNG CANCER 4 MO - LABS - REVIEW CT SCAN [facility] infusion 6 M FU ASHD, ISCHEMIC CARDIOMYOPATHY Reason for Visit Cancer of lower lobe of right lung Hyperlipidemia Ischemic cardiomyopathy Atherosclerotic heart disease of [place] coronary artery without angina pectoris Essential hypertension Chief Complaint LUNG CANCER 4 MO - LABS - REVIEW CT SCAN 6 M FU ASHD, ISCHEMIC CARDIOMYOPATHY 3 MO - NO LABS [facility] infusion SEVERE HYPERGLYCEMIA WITH DEHYDRATION Reason for Visit Cancer of lower lobe of right lung Hyperlipidemia Ischemic cardiomyopathy Atherosclerotic heart disease of [place] coronary artery without angina pectoris Essential hypertension Cancer of lower lobe of right lung Diabetes mellitus, new onset Hyperglycemia Hyperkalemia Chief Complaint LUNG CANCER 4 MO - LABS - REVIEW CT SCAN 6 M FU ASHD, ISCHEMIC CARDIOMYOPATHY 3 MO - NO LABS [facility] infusion SEVERE HYPERGLYCEMIA WITH DEHYDRATION SEVERE HYPERGLYCEMIA WITH DEHYDRATION Reason for Visit Cancer of lower lobe of right lung Hyperlipidemia Ischemic cardiomyopathy Atherosclerotic heart disease of [place] coronary artery without angina pectoris Essential hypertension Cancer of lower lobe of right lung Diabetes mellitus, new onset Hyperglycemia Hyperkalemia Chief Complaint LUNG CANCER 4 MO - LABS - REVIEW CT SCAN 6 M FU ASHD, ISCHEMIC CARDIOMYOPATHY 3 MO - NO LABS [facility] infusion SEVERE HYPERGLYCEMIA WITH DEHYDRATION SEVERE HYPERGLYCEMIA WITH DEHYDRATION LUNG CA [facility] Discharge FU PERLA FRANK Reason for Visit Cancer of lower lobe of right lung Hyperlipidemia Ischemic cardiomyopathy Atherosclerotic heart disease of [place] coronary artery without angina pectoris Essential hypertension Cancer of lower lobe of right lung Diabetes mellitus, new onset Hyperglycemia Diabetes mellitus, new onset Hyperlipidemia Atherosclerotic heart disease of [place] coronary artery without angina pectoris Essential hypertension Chief Complaint 4 MO - LABS - REVIEW CT SCAN 6 M FU ASHD, ISCHEMIC CARDIOMYOPATHY 3 MO - NO LABS K-[facility] infusion SEVERE HYPERGLYCEMIA WITH DEHYDRATION SEVERE HYPERGLYCEMIA WITH DEHYDRATION LUNG CA [facility] Discharge FU JEFFY FRANK Reason for Visit Cancer of lower lobe of right lung Hyperlipidemia Ischemic cardiomyopathy Atherosclerotic heart disease of [place] coronary artery without angina pectoris Essential hypertension Cancer of lower lobe of right lung Diabetes mellitus, new onset Hyperglycemia Diabetes mellitus, new onset Hyperlipidemia Atherosclerotic heart disease of [place] coronary artery without angina pectoris Essential hypertension Chief Complaint Establish Care LUNG CANCER Reason for Visit Esophagitis Hyperlipidemia Hypokalemia Non-small cell lung cancer (NSCLC) Atherosclerotic heart disease of [place] coronary artery without angina pectoris Essential hypertension Mild chronic obstructive pulmonary disease Presence of stent in coronary artery Encounter to establish care Chief Complaint Admit Date 6 M FU October 31, 2024 9:2 0am Chief Complaint Admit Date F/U LUNG CANCER *IV ONLY* November 27 8:20am 6 MO - LABS - REVIEW SCANS December 04, 2 025 1:12pm [facility] infusion December 04, 2024 1:1 5pm 3 MONTH NO LABS March 04, 2025 10:5 2am Reason for Visit Admit Date Cancer of lower lobe of right lung December 04, 2024 1:12pm Cancer of lower lobe of right lung March 04, 2025 10:52am Chief Complaint Admit Date 3 MONTH NO LABS March 04, 2025 10:5 2am [facility]-surveillance May 27, 2025 8 :12am 3 MO - LABS - REVIEW CT June 03 2:37pm [facility] infusion June 03, 2025 2 :45pm Reason for Visit Admit Date Cancer of lower lobe of right lung March 04, 2025 10:52am Cancer of lower lobe of right lung Octob er 2024 2:37pm Family History Relationship Condition Age at Onset Recorded Date/T marisela grandfather Coronary artery disease Unknown brother Malignant neoplasm Unknown Advance Directives Advance Directive Response Recorded Date/ Time Living Will Yes December 21, 2015 9 :58am Power of Hardware Assembler Yes December 21, 2015 9:58am Advance Directive Response Recorded Date/ Time Name of Medical Power of Hardware Assembler ZOLTAN Melgoza December 27, 2021 2:59pm Living Will Yes December 21, 2015 9 :58am Power of Hardware Assembler Yes December 21, 2015 9:58am Documents on File Type Date Recorded Patient Ball Point Splitter Expl anation ACP-Advance Directive ACP-Power of Hardware Assembler Latest Code Status on File Code Status Date Activated Date Inactivated Comments Full Code 01/25/2022 8:42 PM Full Code 01/25/2022 9:23 AM 01/25/2022 8:13 PM Advance Directive Response Recorded Date/ Time Name of Medical Power of Hardware Assembler ZOLTAN Melgoza December 27, 2021 2:59pm Name of Medical Power of Hardware Assembler miroslava Gomez March 06, 2022 8:06am Living Will Yes December 21, 2015 9 :58am Power of Hardware Assembler Yes December 21, 2015 9:58am Advance Directive Response Recorded Date/ Time Advance Directives on File Yes 2021 3:48pm Name of Medical Power of Hardware Assembler Leslye April 07, 2022 3:48pm Name of Medical Power of Hardware Assembler ZOLTAN Melgoza December 27, 2021 2:59pm Name of Medical Power of Hardware Assembler miroslava Gomez March 06, 2022 8:06am Name of Medical Power of Hardware Assembler April 10, 2022 12:58pm Advance Directives Yes April 07, 2022 3:48pm Living Will Yes April 10 12:58pm Power of Hardware Assembler Yes April 10, 12:58pm Advance Directive Response Recorded Date/ Time Advance Directives on File Yes 2021 3:48pm Name of Medical Power of Hardware Assembler Leslye April 07, 2022 3:48pm Name of Medical Power of Hardware Assembler ZOLTAN Melgoza December 27, 2021 2:59pm Name of Medical Power of Hardware Assembler miroslava Gomez March 06, 2022 8:06am Name of Medical Power of Hardware Assembler Leslye Sean April 10, 2022 4:41pm Advance Directives Yes April 07, 2022 3:48pm Living Will Yes April 11 9:07am Power of Hardware Assembler Yes April 11 9:07am Advance Directive Response Recorded Date/ Time Advance Directives on File Yes Octob er 2021 10:21am Name of Medical Power of Hardware Assembler Leslye May 23, 2022 10:21am Advance Directives Yes May 23, 2022 10:21am Living Will Yes May 23 10:21am Power of Hardware Assembler Yes May 23, 2022 10:21am Name of Medical Power of Hardware Assembler Leslye Melgoza April 10, 2022 3:41pm Advance Directive Response Recorded Date/ Time Advance Directives on File Yes Octob er 2021 11:21am Name of Medical Power of Hardware Assembler Leslye May 23, 2022 11:21am Advance Directives Yes May 23, 2022 11:21am Living Will Yes May 23 11:21am Power of Hardware Assembler Yes May 23, 2022 11:21am Advance Directive Response Recorded Date/ Time Advance Directives on File Yes Octob er 2021 11:21am Name of Medical Power of Hardware Assembler Leslye May 23, 2022 11:21am Advance Directives Yes May 23, 2022 11:21am Living Will No December 06, 2023 4:37pm Power of Hardware Assembler No December 05 4:37pm Advance Directive Response Recorded Date/ Time Advance Directives on File Yes Octob er 2021 11:21am Name of Medical Power of Hardware Assembler Leslye May 23, 2022 11:21am Name of Medical Power of Hardware Assembler Leslye Melgoza Miroslava December 06, 2023 10:35pm Advance Directives Yes May 23, 2022 11:21am Living Will Yes December 06, 2023 10:35pm Power of Hardware Assembler Yes December 05 10:35pm Advance Directive Response Recorded Date/ Time Advance Directives Yes May 23, 2022 10:21am Living Will Yes October 11th, 20 22 10:21am Power of Hardware Assembler Yes May 23, 2022 10:21am Advance Directive Response Recorded Date/ Time Advance Directives Yes May 23, 2022 11:21am Advance Directive Response Recorded Date/ Time Living Will Yes December 06, 2023 10:35pm Do you have a Healthcare Power of Hardware Assembler? Yes December 06, 2023 10:35pm Advance Directives Yes May 23, 2022 11:21am Advance Directive Response Recorded Date/ Time Living Will Yes December 06, 2023 10:35pm Do you have a Healthcare Power of Hardware Assembler? Yes December 06, 2023 10:35pm Advance Directives on File Yes Octob er 2021 11:21am Living Will Yes May 23 11:21am Do you have a Healthcare Power of Hardware Assembler? Yes May 23, 2022 11:21am Name of Medical Power of Hardware Assembler Leslye May 23, 2022 11:21am Advance Directives Yes May 23, 2022 11:21am Advance Directive Response Recorded Date/ Time Advance Directives on File Yes Octob er 2021 10:21am Living Will Yes May 23 10:21am Do you have a Healthcare Power of Hardware Assembler? Yes May 23, 2022 10:21am Name of Medical Power of Hardware Assembler Leslye May 23, 2022 10:21am Advance Directives Yes May 23, 2022 10:21am Summary Purpose Additional Source Comments Source Comments (unrecognize d section and content) In the event this informatio n is protected by the Federal Confidentiality of Alcohol and Drug Abuse Patient Records regulations: The Federal rules restrict any use of the information to criminally investigate or prosecute any alcohol or drug abuse patient.[facility] Goals (unrecognized section and content) Goals may be documented in a n alternate sectionGoals may be documented in an alternate sectionGoals may be documented in an alternate sectionGoals may be documented in an alternate sectionGoals may be documented in an alternate sectionGoals may be documented in an alternate sectionGoals may be documented in an alternate sectionGoals may be documented in an alternate sectionGoals may be documented in an alternate sectionGoals may be documented in an alternate sectionGoals may be documented in an alternate sectionGoals may be documented in an alternate sectionGoals may be documented in an alternate sectionGoals may be documented in an alternate sectionGoals may be documented in an alternate section Ordered Prescriptions (unrec ognized section and content) [...] disease or cirrhosis., Pre-op (day of surgery) 0946 (Given - Provider: Yvonne Mosher RN) acetaminophen (TYLENOL) tablet 1,000 mg 1,000 mg, Oral, 3 times daily, First dose on Sun01/25/22 at 2100, Until Discontinued, Maximum dose of acetaminophen is 4000 mg from all sources in 24 hours. 210 (Given - Provider: Micah Singleton RN) 0904 (Given - Provider: Gretchen Mcneil RN)1546 (Given - Provider: Gretchen Mcneil RN)2126 (Given - Provider: Esperanza Mayes RN) 0925 (Given - Provider: Gretchen Mcneil RN)1517 (Given - Provider: Gretchen Mcneil RN)2100 (Due) atorvastatin (LIPITOR) tablet 80 mg 80 mg, Oral, DAILY, First dose on Sun01/25/22 at 2100, Until Discontinued 2107 (Given - Provider: Micah Singleton RN) 2125 (Given - Provider: Esperanza Mayes RN) 2099 (Due) ceFAZolin (ANCEF) 2000 mg in dextrose [...] of surgery) 0946 (Given - Provider: Yvonne Mosher RN) enoxaparin (LOVENOX) injection 40 mg 40 mg, SubCUTAneous, DAILY, First dose on Sun01/26/22 at 1900, Until Discontinued, Indication of Use: Prophylaxis-DVT/PE 1958 (Given - Provider: Esperanza Mayes RN) 925 (Given - Provider: Gretchen Mcneil RN) famotidine (PEPCID) tablet 20 mg (COMPLETED) 20 mg, Oral, ONCE, 1 dose, On Sun01/25/22 at 0945, Pre-op (day of surgery) 0946 (Given - Provider: Yvonne Mosher RN) gabapentin (NEURONTIN) capsule 300 mg (COMPLETED) 300 mg, Oral, ONCE, 1 dose, On Sun01/25/22 at 0945, Pre-op (day of surgery) 0946 (Given - Provider: Yvonne Mosher RN) methocarbamol (ROBAXIN) tablet 500 mg 500 mg, Oral, 3 TIMES DAILY, First dose on Sun01/25/22 at 2100, Until Discontinued 2108 (Given - Provider: Micah Singleton RN) 0904 (Given - Provider: Gretchen Mcneil RN)1546 (Given - Provider: Gretchen Mcneil RN)2125 (Given - Provider: Esperanza Mayes RN) 0925 (Given - Provider: Gretchen Mcneli RN)151 (Given - Provider: Gretchen Mcneil RN)2099 (Due) metoprolol tartrate (LOPRESSOR) tablet 25 mg 25 mg, Oral, 2 TIMES DAILY, First dose on Sun01/25/22 at 2100, Until Discontinued 2108 (Given - Provider: Micah Singleton RN) 0904 (Given - Provider: Gretchen Mcneil RN)2125 (Given - Provider: Esperanza Mayes RN) 09 (Given - Provider: Gretchen Mcneil RN)2099 (Due) sodium chloride flush 0.9 % injection [...] Gretchen Mcneil RN - Reason: IV Fluid Infusing)2129 (Given - Provider: Esperanza Mayes, HERNANDEZ) 110 (Not Given - Provider: Gretchen Mcneil RN - Reason: Other)2099 (Due) Continuous Medication Order 01/25/2022 01/26/2022 01/27/2022 lactated ringers infusion (CANCELED) IntraVENous, at 75 mL/hr, CONTINUOUS, Starting on Sun01/25/22 at 2100 2201 (New Bag - Provider: Micah Singleton RN) PRN Medication Order 01/25/2022 01/26/2022 01/27/2022 0.9 % sodium chloride infusion (CANCELED) IntraVENous, at 5-250 mL/hr, PRN, if patient receiving piggyback infusions and maintenance fluids are not ordered OR KVO fluids to protect IV site / prevent frequent line interruptions/ long duration, Starting on 01/25/22 at 0922, For piggyback infusion, administer at [...] interruptions/ long duration, Starting on Sun01/25/22 at 204, For piggyback infusion, administer at same rate [...] IntraVENous, EVERY 4 HOURS PRN, Starting on 01/25/22 at 2042, Until Discontinued, High Blood Pressure, SBP > 160. Hold if HR > 100. Second line HYDROmorphone (DILAUDID) injection 0.25 mg(Linked Group 1) HYDROmorphone (DILAUDID) 1.5mg IV is equivalent to morphine 10mg IV, 0.25 mg, IntraVENous, EVERY 3 HOURS PRN, Starting on Sun01/25/22 at 2042, Until Discontinued, Pain Moderate (4-6), If oral [...] Bonnie Burris RN)1833 (Given - Provider: Bonnie Burris RN) ondansetron (ZOFRAN) injection 4 mg(Linked Group 2) 4 mg, IntraVENous, EVERY 6 HOURS PRN, Starting on Sun01/25/22 at 2042, Until Discontinued, Nausea, Vomiting, Administer if oral [...] Care Teams (unrecognized sec tion and content) Racing Board Marker Relationship Specialty Start Date End Date George Cutler PCP - General 11/30/15 Team Status: Active Member Role Status Dates Dr. George Cutler MD Family Provider Active Pastora Mcneil , RN IV THERAPY-C Primary Care Provider Active Team Status: Inactive Member Role Status Dates Dr. George Cutler MD Primary Care Provider Active Dr. Aileen Gibson MD Attending Provider Active Team Status: Inactive Member Role Status Dates Dr. George Cutler MD Primary Care Provider, Referring Provider Active Maribeth Early PA, PA Attending Provider Active Team Status: Active Member Role Status Dates Maribeth Early PA, PA Referring Provider, Other Provider Active Pastora Mcneil , RN IV THERAPY-C Primary Care Provider Active Dr. William Padron MD Attending Provider Active Team Status: Active Member Role Status Dates Dr. George Cutler MD Primary Care Provider Active Dr. Aileen Gibson MD Attending Provider, Referrin g Provider Active Team Status: Inactive Member Role Status Dates Maribeth SOTELO, PA Attending Provider, Referr ing Provider Active Pastora Mcneil , RN IV THERAPY-C Primary Care Provider Active Team Status: Inactive Member Role Status Dates Dr. Aileen Gibson MD Attending Provider Active Pastora Mcneil , RN IV THERAPY-C Primary Care Provider, Referring P pamela Active Team Status: Inactive Member Role Status Dates Dr. Aileen Gibson MD Attending Provider, Referrin g Provider Active Pastorajelain Mcneil , RN IV THERAPY-C Primary Care Provider Active Team Status: Inactive Member Role Status Dates Pastora Mcneil RN IV THERAPY-C Primary Care Provider Active Dr. Sabas Bella MD Attending Provider, Referring Provider Active Team Status: Active Member Role Status Dates Dr. George Cutler MD Family Provider Active Dr. Connie Sun MD Primary Care Provider Active Team Status: Inactive Member Role Status Dates Dr. Aileen Gibson MD Attending Provider Active Dr. Connie Sun MD Primary Care Provider, Referri ng Provider Active Team Status: Inactive Member Role Status Dates Pastora Mcneil RN IV THERAPY-C Referring Provider Active Maribeth SOTELO PA Attending Provider Active Dr. Connie Sun MD Primary Care Provider Active Team Status: Active Member Role Status Dates Dr. Connie Sun MD Primary Care Provider Active Dr. William Padron MD Attending Provider Active Team Status: Inactive Member Role Status Dates Dr. Aileen Gibson MD Attending Provider, Referrin g Provider Active Dr. Connie Sun MD Primary Care Provider Active Team Status: Inactive Member Role Status Dates Dr. Connie Sun MD Primary Care Provider Active Maribeth Early PA, PA Attending Provider, Referr ing Provider Active Team Status: Inactive Member Role Status Dates Dr. Connie Sun MD Primary Care Provider, Referri ng Provider Active Dr. Aileen Gibson MD Attending Provider Active Team Status: Active Member Role Status Dates Dr. Connie Sun MD Primary Care Provider Active Dr. Natty Bowling MD Emergency Provider Active Dr. Olaf Salter DO Admit Provider, Attending Provider Active Team Status: Active Member Role Status Dates Dr. Connie Sun MD Primary Care Provider Active Dr. Natty Bowling MD Emergency Provider Active Dr. Olaf Salter DO Admit Provider, Other Pro vider Active Dr. Jonatan Keller MD Attending Provider, Other [facility] [place] Active Team Status: Inactive Member Role Status Dates Dr. Connie Sun MD Primary Care Provider Active Dr. Natty Bowling MD Emergency Provider Active Dr. Olaf Salter DO Admit Provider, Other Pro vider Active Dr. Jonatan Keller MD Attending Provider Active Team Status: Inactive Member Role Status Dates Dr. Connie Sun MD Primary Care Provider, Attendi ng Provider Active Team Status: Inactive Member Role Status Dates Dr. Connie Sun MD Primary Care Provider Active Dr. Aileen Gibson MD Attending Provider, Referrin g Provider Active Team Status: Active Member Role Status Dates Dr. Connie Sun MD Primary Care Pro vider, Attending Provider, Referring Provider Active Maribeth Early PA, PA Other Provider Active Team Status: Inactive Member Role Status Dates Dr. Connie Sun MD Primary Care Pro vider, Attending Provider, Referring Provider Active Maribeth Early PA, PA Other Provider Active Team Status: Inactive Member Role Status Dates DAVID Wagner Primary Care Provider Active Dr. Connie Sun MD Attending Provider Active Team Status: Inactive Member Role Status Dates Dr. Connie Sun MD Primary Care Provider Active Start: October 31, 2024 End: October 31, 2024 Dr. Connie Sun MD Referring Provider Active Start: October 31, 2024 End: October 31, 2024 Dr. William Padron MD Attending Provider Active S tart: October 31, 2024 End: October 31, 2024 Team Status: Inactive Member Role Status Dates Dr. Connie Sun MD Primary Care Provider Active Start: November 04, 2024 End: November 04, 2024 Dr. William Padron MD Attending Provider Active S tart: November 04, 2024 End: November 04, 2024 Dr. William Padron MD Referring Provider Active S tart: November 04, 2024 End: November 04, 2024 Team Status: Active Member Role Status Dates Dr. Connie Sun MD Primary Care Provider Active Team Status: Inactive Member Role Status Dates Dr. Connie Sun MD Primary Care Provider Active Start: November 27, 2024 End: November 27, 2024 Dr. Aileen Gibson MD Attending Provider Active Start: November 27, 2024 End: November 27, 2024 Dr. Aileen Gibson MD Referring Provider Active Start: November 27, 2024 End: November 27, 2024 Team Status: Active Member Role/Relationship Status Dates Dr. Connie Sun MD Primary Care Provider Active Team Status: Inactive Member Role/Relationship Status Dates Dr. Connie Sun MD Primary Care Provider Active Start: November 04, 2024 End: November 04, 2024 Dr. William Padron MD Attending Provider Active S tart: November 04, 2024 End: November 04, 2024 Dr. William Padron MD Referring Provider Active S tart: November 04, 2024 End: November 04, 2024 Team Status: Inactive Member Role/Relationship Status Dates Dr. Connie Sun MD Primary Care Provider Active Start: November 27, 2024 End: November 27, 2024 Dr. Aileen Gibson MD Attending Provider Active Start: November 27, 2024 End: November 27, 2024 Dr. Aileen Gibson MD Referring Provider Active Start: November 27, 2024 End: November 27, 2024 Team Status: Inactive Member Role/Relationship Status Dates Dr. Connie Sun MD Primary Care Provider Active Start: December 04, 2024 End: December 04, 2024 Dr. Connie Sun MD Referring Provider Active Start: December 04, 2024 End: December 04, 2024 Dr. Aileen Gibson MD Attending Provider Active Start: December 04, 2024 End: December 04, 2024 Team Status: Active Member Role/Relationship Status Dates Dr. Aileen Gibson MD Attending Provider Active Start: December 04, 2024 Dr. Aileen Gibson MD Referring Provider Active Start: December 04, 2024 Dr. Connie Sun MD Primary Care Provider Active Start: December 04, 2024 Team Status: Inactive Member Role/Relationship Status Dates Dr. Connie Sun MD Primary Care Provider Active Start: March 04, 2025 End: March 04, 2025 Dr. Connie Sun MD Referring Provider Active Start: March 04, 2025 End: March 04, 2025 Alvina Brian RN IV THERAPY, RN IV THERAPY-C Attending Provider Active Start: March 04, 2025 End: March 04, 2025 Team Status: Active Member Role/Relationship Status Dates Dr. Connie Sun MD Primary care physician Active Team Status: Inactive Member Role/Relationship Status Dates Dr. Connie Sun MD Primary care physician Active Start: March 04, 2025 End: March 04, 2025 Dr. Connie Sun MD Referring Provider Active Start: March 04, 2025 End: March 04, 2025 Alvina Brian RN IV THERAPY, RN IV THERAPY-C Attending physician Active Start: March 04, 2025 End: March 04, 2025 Team Status: Inactive Member Role/Relationship Status Dates Dr. Connie Sun MD Primary care physician Active Start: May 27, 2025 End: May 27, 2025 Alvina Brian RN IV THERAPY, RN IV THERAPY-C Attending physician Active Start: May 27, 2025 End: May 27, 2025 Alvina Brian RN IV THERAPY, RN IV THERAPY-C Referring Provider Active Start: May 27, 2025 End: May 27, 2025 Team Status: Inactive Member Role/Relationship Status Dates Dr. Connie Sun MD Primary care physician Active Start: June 03, 2025 End: June 03, 2025 Dr. Connie Sun MD Referring Provider Active Start: June 03, 2025 End: June 03, 2025 Dr. Aileen Gibson MD Attending physician Active Start: June 03, 2025 End: June 03, 2025 Team Status: Active Member Role/Relationship Status Dates Dr. Aileen Gibson MD Attending physician Active Start: June 03, 2025 Dr. Aileen Gibson MD Referring Provider Active Start: June 03, 2025 Dr. Connie Sun MD Primary care physician Active Start: June 03, 2025 (unrecognized sect ion and content) No Status Records FoundNo Status Records FoundNo Status Records Found INFORMATION SOURCE (unrecogn ized section and content) DATE CREATED AUTHOR 02/22/2022 [facility] [employer] DATE CREATED AUTHOR AUTHOR'S ORGANIZ ATION 07/25/2022 [facility] [employer] [facility] DATE CREATED AUTHOR AUTHOR'S ORGANIZ ATION 06/11/2025 [facility] FOR RECORDS PERTAINING TO PATIENTS WHO [...] BE BASED ON THE PRIMARY CLINICAL RECORDS. [employer] [facility]. provides no warranty or guarantee of the accuracy or completeness of information in this document.
--- NOTE | 2025-08-12 07:26 | HP.PCM_ITS ---
HPI - General General Date of Admission: 08/12/25 Date of Service: 08/12/25 Chief Complaint: Screening colonoscopy HPI Narrative KATARINA MELGOZA, is a 69 M who presents today for screening colonoscopy. Had a colonoscopy over 10 years ago. That was normal. A past medical history of type 2 diabetes, non-small cell lung cancer in remission, CAD status post non-ST segment elevation NM with PTCA and stent in 2015. He is on aspirin and atorvas tatin along with metoprolol. He is not having any chest pain or shortness of breath at this time. [ ] PFSH Medical History Diabetes Gastric reflux History of heart attack Type 2 diabetes mellitus Screening for colon cancer Heart failure (12/03/15) Low back pain Cancer (12/02/21) Hyperkalemia Diabetes mellitus, new onset Weakness Leg pain, bilateral Restless leg Anemia Diarrhea Hypokalemia Drug induced neutropenia CINV (chemotherapy-induced nausea and vomiting) Dehydration Encounter for chemotherapy management Hiccups Encounter for education Wears dentures Bradycardia Cardiology follow-up encounter History of stress test History of echocardiogram Cancer of lower lobe of right lung Kidney stones Former smoker Preoperative cardiovascular examination Essential hypertension Old myocardial infarction Non-ST elevated myocardial infarction (non-STEMI) (~11/2015) Chronic systolic congestive heart failure Atherosclerotic heart disease of [place] coronary artery without angina pectoris Hyperlipidemia Ischemic cardiomyopathy Presence of stent in coronary artery (~11/30/15) Tobacco use Home Medications ?Medication ?Instructions ?Recorded ?Last Taken ?Type aspirin 81 mg tablet,delayed 81 mg PO DAILY@0800 [facility] 12/03/15 04/09/22 History release nitroglycerin 0.4 mg sublingual 0.4 mg sublingual Q5M PRN Chest 02/25/24 Unknown Rx tablet Pain #25 tabs spironolactone 25 mg tablet 12.5 mg (1/2 x 25 mg) PO D AILY #90 05/15/24 Unknown Rx tabs atorvastatin 40 mg tablet 40 mg PO QHS #90 tabs Unknown Rx omeprazole 20 mg tablet,delayed 20 mg PO DAILY #90 tab s 03/11/25 Unknown Rx release dapagliflozin propanediol 10 mg 10 mg PO QAM #90 tabs 05/25/25 08/09/25 Rx tablet (Farxiga) lisinopril 2.5 mg tablet 2.5 mg PO DAILY #90 tabs 08/06 Unknown Rx metoprolol tartrate 25 mg tablet 25 mg PO BID #180 tab s 07/24/25 Unknown Rx Allergy/AdvReac Type Severity Reaction Status Date / Time No Known Allergies Allergy Verified 08/12/25 07:22 Family History Grandfather CAD (coronary artery disease) Brother Cancer Surgical History History of cardiac catheterization History of colonoscopy (04/13/11) History of bronchoscopy Status post lobectomy of lung S/P right rotator cuff repair History of coronary artery stent placement Presence of coronary angioplasty implant and graft (~11/30/15) Social History Smoking Status: Former smoker quit date: 12/05/21 Tobacco: How many years used: 45 how long ago did patient quit smoking: smoked [id number] years, more when he was working alcohol intake: never substance use type: does not use caffeine: Yes Type: carbonated beverages Number of servings: 2 what type of physical activity do you participate in: none seatbelt use: always do you feel safe at home: Yes ROS Constitutional Constitutional: Denies fatigue, fever(s), poor appetite, weight gain or weight loss Gastrointestinal Gastrointestinal: Denies belching, bloating, change in bowel habits, change in stool character, chewing difficulty, coffee ground emesis, constipation, cramping, diarrhea, dyspepsia, dysphagia, early satiety, excessive flatus, fecal incontinence, heartburn, hematemesis, hematochezia, hemorrhoids, loose stools, melena, nausea, odynophagia, rectal bleeding, tenesmus, vomiting or weight changes Patient's Goals Of Care . What would you like to achieve or improve as a result of your hospital stay?: None Physical Exam Const alert, oriented x3, no apparent distress and healthy appearing General Appearance: cooperative GI normal to inspection, nondistended, normoactive bowel sounds, soft to palpation, non-tender and non-distended Percussion: normal to percussion Rectal Exam: deferred Assessment & Plan Assessment/Plan (1) Encounter for screening colonoscopy: PLAN: He was explained alternatives, risk and benefits including withstanding bleeding, infection, sepsis, perforation, need for more urgent . He will have an ASA of 3.
[2025-08-12] MEDS: Lactated Ringers 1,000 ML 15 ML IV (07:33)
--- NOTE | 2025-08-12 07:34 | PRE.ANES_ITS ---
ASA Classification* ASA Classification ASA Classification: 3 Assessment & Plan Anesthesia* Anesthesia Assessment Anesthesia Assessment: Discussed sedation and/or anesthesia options, risks, benefits, and alternatives with patient/parents/legal guardian/POA. Questions invited. The patient/parents/legal guardian/POA seems to understand and agrees to proceed with anesthesia plan. Reviewed the physical assessment, medical history, allergy history and patient home medications list prior to surgery/procedure/anesthetic and documented any changes. Performed airway and anesthesia risk assessments. Anesthesia Type Anesthesia Type: MAC Anesthesia Focused Assessment* Temperature: 97 F Pulse Rate: 77 Blood Pressure: 96/73 Respiratory Rate: 16 Pulse Ox: 96 Airway Assessment Mouth opens: >3 cm Mallampati Score: II Labs Anesthesia Preop lab: CBC WBC, (4.4-11.0) 9.2 K/mm3 06/03/25, 14:40 RBC, (4.6-6.2) 5.12 M/mm3 06/03/25, 14:40 Hgb, (13.0-16.5) 16.4 g/dL 06/03/25, 14:40 Hct, (40-54) 50.0 % 06/03/25, 14:40 Plt Count, (150-450) 226 K/mm3 06/03/25, 14:40 CHEMISTRY Potassium, (3.3-5.1) 4.3 mmol/L 07/15/25, 11: Sodium, (133-145) 140 mmol/L 07/15/25, 11:27 Magnesium, (1.5-2.2) 2.1 mg/dL 07/15/25, : Phosphorus, (2.5-4.9) 3.7 mg/dL 07/19/22, 12:45 BUN, (4-19) 17 mg/dL 07/15/25, 11:27 Creatinine, (0.70-1.20) 1.06 mg/dL 07/15/25, : Glucose, (70-99) 125 mg/dL H 07/15/25, 11:27 POC Glucose, (74-106) 151 mg/dL H 12/07/23, 11:16 TSH, (0.300-4.200) 1.180 uIU/mL 07/15/25, 11:27 COAG PT, (11.7-14.9) 13.9 SECONDS 04/11/22, 04:48 Pre-Assessment Diagnosis/Proposed Procedure Planned Operative Procedure(s): EGD, COLONOSCOPY Anesthesia History Anesthesia History - prevocational/rehabilitation counselor: Anesthesia History - prevocational/rehabilitation counselor Hx Hospitalization No 08/10/25 09:53 Any Problems With Anesthesia No 08/10/25 09:53 Cholinesterase deficiency No 08/10/25 09:53 You/Your Family Experience No 08/10/25 09:53 fever (hyperthermia) with Relationship Recent Exposure to Contagious No 08/12/25 07:30 Disease Does patient have nerve No 08/10/25 09:53 stimulator Patient instructed to have device shut off --Does patient have Pacemaker No 08/12/25 07:30 or ICD? When Was Last Pacemaker Check QUESTION #4 FULL TEXT: You/Your Family Experience fever (hyperthermia) with Anesthesia Last Oral Intake Last Oral intake: Last Oral Intake NPO since 06:00 08/12/25 07:30 Meds taken in AM with sips of Yes 08/12/25 07:30 water? Meds patient instructed to see mar 08/12/25 07:30 take am of surgery PONV PONV - prevocational/rehabilitation counselor: PONV - prevocational/rehabilitation counselor Female No 08/10/25 09:53 HX of Motion Sickness No 08/10/25 09:53 HX of N/V After Surgery No 08/10/25 09:53 Non-Smoker Yes 08/10/25 09:53 Duration of Surgery greater No 08/10/25 09:53 than 60 minutes Number of Risk Factors 1 08/10/25 09:53 PONV Score Low Risk 08/10/25 09:53 Height & Weight Height & Weight: Anesthesia: Height & Weight Height 5 ft 7 in 08/12/25 07:30 Weight: 78.925 kg 08/12/25 07:30 Body Mass Index (BMI) 27.2 08/12/25 07:30 Respiratory Assessment Respiratory Assessment - prevocational/rehabilitation counselor: Respiratory Tract Infection Hx - prevocational/rehabilitation counselor Hx Respiratory Tract Infection No 08/10/25 09:53 STOP Sleep Apnea STOP Sleep Apnea - prevocational/rehabilitation counselor: STOP Sleep Apnea - prevocational/rehabilitation counselor Hx Hypertension Yes 08/10/25 09:53 Hx Sleep Apnea No 08/10/25 09:53 CPAP BIPAP Do you snore loudly (louder No 08/10/25 09:53 than talking or can be heard Do you often feel tired/ No 08/10/25 09:53 fatigued/ sleepy during daytime? Has anyone observed you stop No 08/10/25 09:53 breathing during sleep? STOP Results Negative 08/10/25 09:53 QUESTION #5 FULL TEXT : Do you snore loudly (louder than talking or can be heard through closed doors)? 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 Specify any problems Hx of Preganancy in last 3 N/A 08/10/25 09:53 Months Nurse Filling Out Transfusion [facility] 08/10/25 09:53 & Questions: Date: 08/10/25 08/10/25 09:53 Time: 10:00 08/10/25 09:53 Patient unable to answer at this time (ie. confused, unrespo /Reproduction History /Reproductive History - prevocational/rehabilitation counselor: /Reproductive Hx- prevocational/rehabilitation counselor Hx Now Gestational Age (in weeks): EDC: Hx Hx Para Hx Section SAB No 08/10/25 09:53 Does the father of the baby or his family experience fever w Father of the baby Malignant Hypertension history comment Active Medications Active Medications: Current Medications Generic Name Dose Route Start Last Admin Trade Name Freq PRN Reason Stop Dose Admin Lactated Ringer's 1,000 mls @ 15 mls/hr 08/12/25 07:15 08/12/25 07:33 IV 15 mls/hr .Q48H LOTTIE Administration PFSH Medical History Diabetes Gastric reflux History of heart attack Type 2 diabetes mellitus Screening for colon cancer Heart failure (12/03/15) Low back pain Cancer (12/02/21) Hyperkalemia Diabetes mellitus, new onset Weakness Leg pain, bilateral Restless leg Anemia Diarrhea Hypokalemia Drug induced neutropenia CINV (chemotherapy-induced nausea and vomiting) Dehydration Encounter for chemotherapy management Hiccups Encounter for education Wears dentures Bradycardia Cardiology follow-up encounter History of stress test History of echocardiogram Cancer of lower lobe of right lung Kidney stones Former smoker Preoperative cardiovascular examination Essential hypertension Old myocardial infarction Non-ST elevated myocardial infarction (non-STEMI) (~11/2015) Chronic systolic congestive heart failure Atherosclerotic heart disease of [place] coronary artery without angina pectoris Hyperlipidemia Ischemic cardiomyopathy Presence of stent in coronary artery (~11/30/15) Tobacco use Home Medications ?Medication ?Instructions ?Recorded ?Last Taken ?Type aspirin 81 mg tablet,delayed 81 mg PO DAILY@0800 [facility] 12/03/15 08/05/25 History release nitroglycerin 0.4 mg sublingual 0.4 mg sublingual Q5M PRN Chest 02/25/24 Unknown Rx tablet Pain #25 tabs spironolactone 25 mg tablet 12.5 mg (1/2 x 25 mg) PO D AILY #90 05/15/24 Unknown Rx tabs atorvastatin 40 mg tablet 40 mg PO QHS #90 tabs Unknown Rx omeprazole 20 mg tablet,delayed 20 mg PO DAILY #90 tab s 03/11/25 Unknown Rx release dapagliflozin propanediol 10 mg 10 mg PO QAM #90 tabs 05/25/25 08/09/25 Rx tablet (Farxiga) lisinopril 2.5 mg tablet 2.5 mg PO DAILY #90 tabs 08/06 Unknown Rx metoprolol tartrate 25 mg tablet 25 mg PO BID #180 tab s 07/24/25 08/12/25 06:00 Rx Allergy/AdvReac Type Severity Reaction Status Date / Time No Known Allergies Allergy Verified 08/12/25 07:22 Family History Grandfather CAD (coronary artery disease) Brother Cancer Surgical History History of cardiac catheterization History of colonoscopy (04/13/11) History of bronchoscopy Status post lobectomy of lung S/P right rotator cuff repair History of coronary artery stent placement Presence of coronary angioplasty implant and graft (~11/30/15) Social History Smoking Status: Former smoker quit date: 12/05/21 Tobacco: How many years used: 45 how long ago did patient quit smoking: smoked [id number] years, more when he was working alcohol intake: never substance use type: does not use caffeine: Yes Type: carbonated beverages Number of servings: 2 what type of physical activity do you participate in: none seatbelt use: always do you feel safe at home: Yes Review of Systems (Anesthesia) ROS Narrative System reviewed and no additional complaints, except as documented.
--- NOTE | 2025-08-12 09:01 | SUR.PHASEI ---
0859 BP 57/38 Ephedrine 10mg iv given per anesthesa.
--- NOTE | 2025-08-12 09:01 | PCM.POST.ANE ---
Anesthesia: Postop Eval I Current Vital Signs Temperature: 97.3 F Pulse Rate: 64 Blood Pressure: 70/55 (Recheck at 57/38. 10mg ephedrine given at 0900. BP 83/62. Ephedrine 10mg given at 0903. RN instructed to give 500ml fluid bolus.) Respiratory Rate: 16 Pulse Ox: 93 Oxygen Delivery Method: Room Air Assessment Airway patent: Yes Spontaneous unlabored respirations: Yes Mental status: Awake and Calm nausea: No Vomiting: No Anesthesia Complication: No Fluid Hydration Crystalloid volume administer (ml): 300 Total IV fluid infused: 300 Progress Note Anesthesia document: Postop Eval 1 completed: Yes
--- NOTE | 2025-08-12 09:02 | OP.PROVAT_ITS ---
08/12/2025 Connie Sun [facility] [address] [place] [address] Re : Colonoscopy procedure for Jesse Estrada Dear Dr. Sun This procedure was performed on Tuesday, August 12, 2025. My impressions and recommendations are as follows: Impressions : - Severe diverticulosis in the recto-sigmoid colon, in the sigmoid colon and in the descending colon. There was no evidence of diverticular bleeding. - No specimens collected. Recommendations : - Discharge patient to home. - Resume previous diet. - Continue present medications. - Repeat colonoscopy in 10 years for screening purposes. My findings are described in the full procedure note, which is enclosed. If I can be of further assistance, please feel free to contact me at . Sincerely, Lazaro Olivas, 08/12/2025 9:01:55 AM This report has been signed electronically.
--- NOTE | 2025-08-12 09:02 | OP.COLON_ITS ---
Patient Name: Jesse Estrada Procedure Date: 08/12/2025 8:27 AM Date of : 1955 Age: 69 Procedure: Colonoscopy Indications: Screening for colorectal malignant neoplasm Providers: Lazaro Olivas DO Medicines: Monitored Anesthesia Care Patient Profile: This is a 69 year old male. Refer to note in patient chart for documentation of history and physical. Last Colonoscopy: more than 10 years ago. Complications: No immediate complications. Procedure: Pre-Anesthesia Assessment: - Prior to the procedure, a History and Physical was performed, and patient medications and allergies were reviewed. The patient is competent. The risks and benefits of the procedure and the sedation options and risks were discussed with the patient. All questions were answered and informed consent was obtained. Patient identification and proposed procedure were verified by the physician in the pre-procedure area. Mental Status Examination: alert and oriented. Airway Examination: normal oropharyngeal airway and neck mobility. Respiratory Examination: clear to auscultation. CV Examination: normal. Prophylactic Antibiotics: The patient does not require prophylactic antibiotics. Prior Anticoagulants: The patient has taken no anticoagulant or antiplatelet agents except for NSAID medication. ASA Grade Assessment: II - A patient with mild systemic disease. After reviewing the risks and benefits, the patient was deemed in satisfactory condition to undergo the procedure. The anesthesia plan was to use monitored anesthesia care (MAC). Immediately prior to administration of medications, the patient was re-assessed for adequacy to receive sedatives. The heart rate, respiratory rate, oxygen saturations, blood pressure, adequacy of pulmonary ventilation, and response to care were monitored throughout the procedure. The physical status of the patient was re-assessed after the procedure. After I obtained informed consent, the scope was passed under direct vision. Throughout the procedure, the patient's blood pressure, pulse, and oxygen saturations were monitored continuously. The Colonoscope was introduced through the anus and advanced to the cecum, identified by appendiceal orifice and ileocecal valve. The colonoscopy was performed without difficulty. The patient tolerated the procedure well. The quality of the bowel preparation was adequate. Anatomical landmarks were photographed. Scope In: 8:38:33 AM Scope Withdrawal Time 0 hours 7 minutes 5 seconds Scope Out: 8:47:53 AM Total Procedure Duration Time 0 hours 9 minutes 20 seconds Findings: Multiple small and large-mouthed diverticula were found in the recto-sigmoid colon, sigmoid colon and descending colon. There was no evidence of diverticular bleeding. Impression: - Severe diverticulosis in the recto-sigmoid colon, in the sigmoid colon and in the descending colon. There was no evidence of diverticular bleeding. - No specimens collected. Recommendation: - Discharge patient to home. - Resume previous diet. - Continue present medications. - Repeat colonoscopy in 10 years for screening purposes. Procedure Code(s): --- Professional --- G0121, Colorectal cancer screening; colonoscopy on individual not meeting criteria for high risk CPT copyright 2021 [employer]. All rights reserved. The codes documented in this report are preliminary and upon linux solaris administrator review may be revised to meet current compliance requirements. Lazaro Olivas DO 08/12/2025 9:01:55 AM This report has been signed electronically. Number of Addenda: 0 Note Initiated On: 08/12/2025 8:27 AM
--- NOTE | 2025-08-12 09:04 | SUR.PHASEI ---
0903 bp 83/62 ephedrine 10mg iv given per anesthesia.
--- NOTE | 2025-08-12 09:31 | POSTOPAN2_ITS ---
Anesthesia Postop Eval I Sum Postop Eval Completion status Anesthesia document: Postop Eval 1 completed: Yes Anesthesia Postop Eval I Summary Anesthesia Postop Eval I Summary: Anesthesia Postop Eval I: Assessment Summary Airway patent Yes 08/12/25 09:04 REFINING MACHINE OPERATOR.GDOTT Spontaneous unlabored Yes 08/12/25 09:04 REFINING MACHINE OPERATOR.GDOTT respirations Mental status Awake,Calm 08/12/25 09:04 REFINING MACHINE OPERATOR.GDOTT nausea No 08/12/25 09:04 REFINING MACHINE OPERATOR.GDOTT Vomiting No 08/12/25 09:04 REFINING MACHINE OPERATOR.GDOTT Anesthesia Postop Eval I: Fluid Summary Crystalloid volume administer 300 08/12/25 09:04 REFINING MACHINE OPERATOR.GDOTT (ml) Colloids volume administered ( ml) Blood Product volume administered (ml) Total IV fluid infused 300 08/12/25 09:04 REFINING MACHINE OPERATOR.GDOTT Anesthesia Postop Eval I: Summary Notes Anesthesia Complication No 08/12/25 09:04 REFINING MACHINE OPERATOR.GDOTT Anesthesia Complication Comment: Post-operative progress note Anesthesia: Postop Eval II Evaluation Mental status: Awake Pain Level: 0 nausea: No Vomiting: No
--- NOTE | 2025-08-12 09:31 | PCM.POSTANE2 ---
Anesthesia Postop Eval I Sum Postop Eval Completion status Anesthesia document: Postop Eval 1 completed: Yes Anesthesia Postop Eval I Summary Anesthesia Postop Eval I Summary: Anesthesia Postop Eval I: Assessment Summary Airway patent Yes 08/12/25 09:04 CATALOGUE ILLUSTRATOR.GDOTT Spontaneous unlabored Yes 08/12/25 09:04 CATALOGUE ILLUSTRATOR.GDOTT respirations Mental status Awake,Calm 08/12/25 09:04 CATALOGUE ILLUSTRATOR.GDOTT nausea No 08/12/25 09:04 CATALOGUE ILLUSTRATOR.GDOTT Vomiting No 08/12/25 09:04 CATALOGUE ILLUSTRATOR.GDOTT Anesthesia Postop Eval I: Fluid Summary Crystalloid volume administer 300 08/12/25 09:04 CATALOGUE ILLUSTRATOR.GDOTT (ml) Colloids volume administered ( ml) Blood Product volume administered (ml) Total IV fluid infused 300 08/12/25 09:04 CATALOGUE ILLUSTRATOR.GDOTT Anesthesia Postop Eval I: Summary Notes Anesthesia Complication No 08/12/25 09:04 CATALOGUE ILLUSTRATOR.GDOTT Anesthesia Complication Comment: Post-operative progress note Anesthesia: Postop Eval II Evaluation Mental status: Awake Pain Level: 0 nausea: No Vomiting: No
== END 2025-08-12 10:08 | disposition home or self-care (01) ==
LOC: EN 07:08 → AC 07:09
PROVIDERS: PCP Internal Medicine; Referring Provider Internal Medicine; Visit Provider Internal Medicine Gastroenterology
PROC: 0DJD8ZZ Inspection of Lower Intestinal Tract, Via Natural or Artificial Opening Endoscopic (ICD-10-PCS; CPT 45378; principal; 2025-08-12 08:10)
DX: Z12.11 Encounter for screening for malignant neoplasm of colon (principal); I11.0 Hypertensive heart disease with heart failure; I50.22 Chronic systolic (congestive) heart failure; E11.9 Type 2 diabetes mellitus without complications; K57.30 Diverticulosis of large intestine without perforation or abscess without bleeding; E78.5 Hyperlipidemia, unspecified; Z87.891 Personal history of nicotine dependence; I25.10 Atherosclerotic heart disease of native coronary artery without angina pectoris; Z79.84 Long term (current) use of oral hypoglycemic drugs; Z95.5 Presence of coronary angioplasty implant and graft; I25.2 Old myocardial infarction; K21.9 Gastro-esophageal reflux disease without esophagitis; Z79.82 Long term (current) use of aspirin; Z79.899 Other long term (current) drug therapy
CPT/HCPCS: G0121; 82962